=== PATIENT | female | born 1960 | race Caucasian/White ===

== ENCOUNTER 2021-04-26 12:48 | Emergency (ER) | payer MEDICARE, MEDICAID, SELFPAY ==
[2021-04-26] VITALS (12 sets, daily range): BP systolic 118–126; BP diastolic 86–97; PULSE 87–102; RESP 17–25; TEMP 37.4; O2SAT 93–95
--- NOTE | ~2021-04-26 | XR_ITS ---
EXAMINATION: XR chest 1V portable EXAM DATE: 04/26/2021 13:59 INDICATION: Productive cough. Altered mental status. TECHNIQUE: Portable AP frontal chest x-ray was obtained. Comparison is made to prior examination from 02/01/2015. FINDINGS: Mildly prominent basilar reticulation, could be mild pulmonary edema or interstitial lung d isease. No confluent consolidation, pneumothorax or pleural effusion suspected. The cardiomediastinal silhouette is prominent but magnified on this AP technique. Mild thoracal lumbar scoliosis. IMPRESSION: Some prominent basilar reticulation, could indicate mild edema or interstitial lung disea se. Reviewed, dictated and finalized at location A. IMPRESSION: Some prominent basilar reticulation, could indicate mild edema or i nterstitial lung disease.
[2021-04-26 13:07] LABS: Glucose Point of Care 342 mg/dl (65-105)
--- NOTE | 2021-04-26 13:19 | ECG_ITS ---
Measurements Intervals [place] Rate: 82 P: 65 [place]: 145 QRS: -55 QRSD: 101 T: 78 QT: 425 QTc: 497 Interpretive Statements SINUS RHYTHM FREQUENT ATRIAL PREMATURE COMPLEXES LEFT AXIS DEVIATION INFERIOR INFARCT, AGE INDETERMINATE BORDERLINE ST-T WAVE ABNORMALITY- HIGH LATERAL LEADS BASELINE ARTIFACT- I, II, III, AVR, AVF, V1, V3-V6 ABNORMAL ECG Electronically Signed On 04-26-2021 15:05:57 CDT by Arsenio Escalona D.O.
--- NOTE | 2021-04-26 13:32 | ED.AMS ---
HPI - Altered Mental Status General Chief Complaint: Altered Mental Status Stated Complaint: sleeping all the time, not eating Time Seen by Provider: 04/26/21 12:56 Source: family and EMS Limitations: physical limitation and other (s/p stroke, aphasia) History of Present Illness HPI narrative: 61-year-old female brought in by family via EMS for increased sleepiness for the last 4 days. Family states she has had increased cough, and increased sleepiness and decreased appetite. On arrival patient does have a rough cough with fever 99.4. Patient is sleepy but arousable. Following instructions. Patient with history of aphasia. Family states no vomiting, no diarrhea, no rashes, no new medications. Patient states patient has history of diabetes, high blood pressure, and stroke with aphasia and R sided weakness, usually ambulates without assistance, still a smoker with chronic cough. Related Data Home Medications Medication Instructions Recorded Confirmed amlodipine 04/26/21 sitagliptin [Januvia] mg 04/26/21 04/26/21 Allergies Allergy/AdvReac Type Severity Reaction Status Date / Time insulin glargine Allergy Severe Swelling Verified 02/01/15 07:23 amoxicillin Allergy Unknown Unverified 02/01/15 07:23 cephalexin Allergy Unknown Unverified 02/01/15 07:23 doxycycline Allergy Unknown Itching Verified 02/01/15 07:23 latex Allergy Unknown Unverified 02/01/15 07:23 Penicillins Allergy Unknown Unverified 02/01/15 07:23 sulfamethoxazole Allergy Unknown Swelling Verified 02/01/15 07:23 sumatriptan Allergy Unknown Unverified 02/01/15 07:23 trazodone Allergy Unknown Swelling Verified 02/01/15 07:23 trimethoprim Allergy Unknown Swelling Verified 02/01/15 07:23 Review of Systems Review of Systems: ROS unobtainable: Yes unobtainable due to medical condition and other (Aphasia status post stroke) Exam Narrative: General: sleepy but arousable, following commands, respirations unlabored Head: normocephalic, atraumatic Eyes: EOMI bilaterally, anicteric, no injection ENT: moist mucous membranes, oropharynx patent, no rhinorrhea; poor dentition, multiple dental caries, no periapical abscess Neck: supple, trachea midline, no JVD Chest: equal chest rise bilaterally, no chest wall trauma noted Lungs: B rhonchi respirations unlabored CV: regular rate, no AARTI B, calf size equal bilaterally Abd: soft, non-distended, non-tender, no rebound, no gaurding, negative Robison's EXT: no deformity noted, cap refill less 2sec Skin: warm, dry, no pallor Neuro: alert, oriented x 3; CN 2-12 grossly intact, no dysarthria Psych: affect appropriate, though content normal Course Course Emergency Course: Lab results show hyperglycemia, negative troponin no elevated WBCs, patient awake alert no apparent distress afebrile after IV fluids. Will recheck blood sugar. Reevaluation(s) Date: 04/26/21 Time: 16:25 Reevaluation #2: Alert oriented answering all questions. Complaining of dental pain. Vital Signs Vital signs: Vital Signs Temperature 37.4 C 04/26/21 13:03 Pulse Rate 97 04/26/21 13:03 Respiratory Rate 23 H 04/26/21 13:03 Blood Pressure 126/97 H 04/26/21 13:03 Pulse Oximetry 94 04/26/21 13:03 Temperature 37.4 C 04/26/21 13:03 Pulse Rate 97 04/26/21 13:03 Respiratory Rate 20 04/26/21 13:18 Blood Pressure 126/97 H 04/26/21 13:03 Pulse Oximetry 94 04/26/21 13:03 MDM - Altered Mental Status MDM Narrative Medical decision making narrative: 61-year-old female with multiple medical problems stable chronic smoker with chronic cough brought in by family for increased sleepiness over the last 4 days. Patient arrives with a fever of 99.4 arrest worsening cough per family, respirations unlabored and a sugar of 324. Patient is sleepy but arousable following commands. She does have aphasia status post CVA 4 years ago. Ambulates without assistance at home. Differential Diagnosis Differential diagnosis: Likely other (Hypergly
[2021-04-26 13:48] LABS: Basophils Percent Auto 0.4 % (0.2-1.2); Eosinophils Percent Auto 0.4 % (0-4.4); Hematocrit 43.7 % (37.0-47.0); Hemoglobin 15.1 g/dL (12.0-15.0); Immature Granulocyte Absolute 0.02 K/mm3 (0.00-0.031); Immature Granulocyte Percent A 0.4 % (0-0.5); Lymphocytes Absolute Auto 1.89 K/mm3 (0.9-3.2); Lymphocytes Percent Auto 40.7 % (18.3-44.2); Mean Corpuscular HGB Conc 34.6 g/dl (32-36); Mean Corpuscular Hemoglobin 30.2 pg (26-34); Mean Corpuscular Volume 87.4 fl (80-100); Mean Platelet Volume 10.4 fl (7.4-10.4); Monocytes Absolute Auto 0.4 K/mm3 (0.1-0.6); Monocytes Percent Auto 7.8 % (2.6-8.5); Neutrophils Absolute Auto 2.3 K/mm3 (1.3-6.7); Neutrophils Percent Auto 50.3 % (45.5-73.1); Platelet Count Result 182 k/mm3 (150-375); Red Cell Distribution Width 12.4 % (11.5-14.5); White Blood Count 4.6 K/mm3 (4.5-10.0)
[2021-04-26 13:58] LABS: Prothrombin Time 13.2 Seconds (11.1-14.7)
[2021-04-26 13:59] LABS: Alanine Aminotransferase 14 U/L (4-35); Albumin Level 3.4 g/dL (3.5-5.1); Alkaline Phosphatase 91 U/L (38-126); Anion Gap 7 mmol/L (8-16); Aspartate Amino Transferase 23 U/L (14-36); Bilirubin,Total 0.8 mg/dL (0.2-1.3); Blood Urea Nitrogen 11 mg/dL (7-17); Calcium 8.7 mg/dL (8.4-10.2); Carbon Dioxide 28 mmol/L (22-30); Chloride 101 mmol/L (98-107); Estimated Glomerular Filt Rate > 60; Glucose 311 mg/dL (65-110); Partial Thromboplastin Time 24.8 SECONDS (22.3-36.8); Potassium 3.7 mmol/L (3.4-5.0); Sodium 136 mmol/L (137-145)
[2021-04-26 14:14] LABS: Troponin I 0.013 ng/mL (0.000-0.034)
[2021-04-26] MEDS: SODIUM CHLORIDE 0.9% IV 1,000 ML 999 ML IV CONT (14:50)
[2021-04-26 15:59] LABS: Add Urine Microscopic? YES; Appearance Urine Cloudy (Clear); Bacteria Urine 4+ /hpf; Bilirubin Urine Negative (Negative); Blood Urine Negative (Negative); Color Urine Amber (Yellow); Glucose Urine UA 3+ mg/dL (Negative); Ketones Urine Negative (Negative); Leukocyte Esterase Ur Negative LEU/UL (Negative); Mucus Urine Rare /lpf; Nitrate Urine Negative (Negative); Protein Urine 2+ mg/dL (Negative); Specific Grav Ur 1.023 (1.001-1.035); Squamous Epithelial Cell Urine Occasional /hpf (Few); WBC Urine 0-3 /hpf
[2021-04-26] MEDS: CLINDAMYCIN HCL 150 MG CAP 600 MG PO (17:18)
[2021-04-26 17:28] LABS: Glucose Point of Care 216 mg/dl (65-105)
[2021-04-27 16:20] LABS: SARS-CoV-2 RNA PCR Positive
== END 2021-04-26 17:47 | disposition home or self-care (01) ==
PROVIDERS: Emergency Provider Emergency Medicine
DX: U07.1 COVID-19 (principal); R05.9 Cough, unspecified; K04.7 Periapical abscess without sinus; E11.65 Type 2 diabetes mellitus with hyperglycemia; I10 Essential (primary) hypertension; I69.920 Aphasia following unspecified cerebrovascular disease; I69.951 Hemiplegia and hemiparesis following unspecified cerebrovascular disease affecting right dominant side; Z79.84 Long term (current) use of oral hypoglycemic drugs; I49.1 Atrial premature depolarization; R94.31 Abnormal electrocardiogram [ECG] [EKG]; F17.200 Nicotine dependence, unspecified, uncomplicated
CPT/HCPCS: 36415; 71045; 80053; 81001; 82948; 84145; 84484; 85025; 85610; 85730; 93005; 96360; 99284; A9270; C9803; J7030; U0003; U0005

== ENCOUNTER 2021-11-15 16:43 | Emergency (ER) | payer BC, SELFPAY ==
--- NOTE | ~2021-11-15 | XR_ITS ---
EXAM: XR foot RT min 3V DATE: 11/15/2021 17:15 HISTORY: right 2nd toe pain, edema . COMPARISON: None available. FINDINGS: Decreased mineralization. No fracture or dislocation. No lytic or blastic lesion. Scattere d degenerative change. No erosion or periosteal change. Soft tissue swelling over the right second di git and forefoot. IMPRESSION: No acute osseous finding in the right foot. Reviewed, dictated and finalized at location K.
[2021-11-15 16:44] VITALS: BP 196/113; PULSE 114; RESP 18; TEMP 36.3; O2SAT 98
--- NOTE | 2021-11-15 17:04 | ED.LOWEXIN ---
HPI - Extremity Injury (Lower) General Chief Complaint: Extremity Injury, Lower Stated Complaint: right 2nd toe injury Time Seen by Provider: 11/15/21 16:51 Source: patient Mode of arrival: wheelchair Limitations: no limitations History of Present Illness HPI Narrative: This is a 61 year old female that presents to the ER for right 2nd toe pain ongoing for about one month. Unsure of known injury or trauma. Reports pain and swelling to the area. Denies fever, or erythema. Related Data Home Medications Medication Instructions Recorded Confirmed amlodipine 04/26/21 sitagliptin [Januvia] mg 04/26/21 04/26/21 clopidogrel 11/15/21 linagliptin [Tradjenta] mg 11/15/21 losartan 11/15/21 omeprazole 11/15/21 Allergies Allergy/AdvReac Type Severity Reaction Status Date / Time insulin glargine Allergy Severe Swelling Verified 11/15/21 17:06 amoxicillin Allergy Unknown Unknown Verified 11/15/21 17:06 cephalexin Allergy Unknown Unknown Verified 11/15/21 17:06 doxycycline Allergy Unknown Itching Verified 11/15/21 17:06 latex Allergy Unknown Unknown Verified 11/15/21 17:06 Penicillins Allergy Unknown Unknown Verified 11/15/21 17:06 sulfamethoxazole Allergy Unknown Swelling Verified 11/15/21 17:06 sumatriptan Allergy Unknown Unknown Verified 11/15/21 17:06 trazodone Allergy Unknown Swelling Verified 11/15/21 17:06 trimethoprim Allergy Unknown Swelling Verified 11/15/21 17:06 Review of Systems Review of Systems: CONSTITUTIONAL: Denies fever MUSCULOSKELETAL: Reports joint pain, and myalgia. NEUROLOGIC: Reports numbness, and weakness due to previous stroke All systems reviewed & are unremarkable except as noted in HPI and below PMFSH Past Medical History Medical History (Updated 11/15/21 @ 17:52 by Ina Belcher PA-C) History of CVA (cerebrovascular accident) History of diabetes mellitus Social History Social History (Updated 11/15/21 @ 17:10 by Ina Belcher PA-C) Smoking status: Current every day smoker Exam Narrative: GENERAL: Well-appearing, well-nourished, and in no acute distress. HEAD: Normocephalic, atraumatic. EYES: EOMI. CHEST: No respiratory distress. HEART: Regular rate and rhythm. No murmur heard. Normal peripheral pulses. EXTREMITIES: Normal range of motion. Right 2nd toe with developing blister to the distal phalanx. Mild surrounding edema and redness of the toe, no erythema or warmth. 1+ DP pulses SKIN: Warm, dry, no rash. NEURO: No focal deficits. Alert and oriented x3. PSYCH: Normal mood and affect Course Vital Signs Vital signs: Vital Signs Temperature 97.4 F L 11/15/21 16:44 Pulse Rate 114 H 11/15/21 16:44 Respiratory Rate 18 11/15/21 16:44 Blood Pressure 196/113 H 11/15/21 16:44 Pulse Oximetry 98 11/15/21 16:44 Temperature 97.4 F L 11/15/21 16:44 Pulse Rate 114 H 11/15/21 16:44 Respiratory Rate 18 11/15/21 16:44 Blood Pressure 196/113 H 11/15/21 16:44 Pulse Oximetry 98 11/15/21 16:44 MDM - Extremity Injury (Lower) MDM Narrative Medical decision making narrative: Patient presents to the emergency department for a wound to the right second toe. Present over the last month. Patient is afebrile and nontoxic-appearing. DP pulses are somewhat diminished, but easily obtained by Doppler. There is some redness and swelling surrounding a blister lesion to the end of the second toe. Foot x-ray is without acute osseous abnormalities. Patient with history of diabetes mellitus and likely vascular problems contributing to the wound on her toe. She refused any further evaluation or management of this. Given risks of doing so. She signed out AGAINST MEDICAL ADVICE. She will be placed on oral antibiotics and was instructed on the importance of having close follow-up with her primary doctor or returning at any time for further evaluation and management Imaging Data Radiologist's impression: ITS Impressions Foot X-Ray 11/15/21 17:18 IMPRESSION: No acute
--- NOTE | 2021-11-15 17:47 | PC.NURSE ---
PT CONSENTING TO ONE ATTEMPT FOR LABS AND IV ACCESS. THIS RN OBTAINED A FLASH BUT WAS UNABLE TO ADVANCE THE CATHETER OR OBTAIN LABS. PT REFUSING ADDITIONAL STICKS AT THIS TIME. ANNABELLA TRENT AWARE AND WILL GO SPEAK WITH THE PT
== END 2021-11-15 18:00 | disposition left against medical advice (07) ==
PROVIDERS: Emergency Provider Emergency Medicine
DX: E11.621 Type 2 diabetes mellitus with foot ulcer (principal); Z86.73 Personal history of transient ischemic attack (TIA), and cerebral infarction without residual deficits
CPT/HCPCS: 73630; 99283

== ENCOUNTER 2022-09-10 07:37 | Outpatient (CLI) | payer BC, SELFPAY ==
--- NOTE | ~2022-09-10 | US_ITS ---
EXAMINATION: US retroperitoneal duplex ltd DATE: 09/10/2022 09:47 INDICATION: hypertension TECHNIQUE: Multiple grayscale, color Doppler, and pulsed Doppler images of the kidneys and renal mackenzie ton were obtained. COMPARISON: None. FINDINGS: The aorta peak systolic velocity is 77 cm/s. The right renal artery peak systolic velocity is 86 cm/s in the proximal segment, 86 cm/s in the mid segment, and 111 cm/s in the distal segment. The left re nal artery peak systolic velocity is 108 cm/s in the proximal segment, 123 cm/s in the mid segment, a nd 67 cm/s in the distal segment. IMPRESSION: 1. No Doppler evidence of renal artery stenosis. Reviewed, dictated and finalized at location B.
--- NOTE | ~2022-09-10 | US_ITS ---
EXAMINATION: US arterial duplex LE DATE: 09/10/2022 09:47 INDICATION: Hypertension. 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 TECHNIQUE: Multiple grayscale and Doppler ultrasound images of the arteries at the bilateral lower li mbs were obtained. COMPARISON: None FINDINGS: Biphasic waveform with brisk systolic upstroke at the right common femoral artery. There is occlusion of the right [place] superficial femoral artery with triphasic waveforms in the right femoral to popl iteal artery bypass graft in the more distal right popliteal artery. Biphasic waveforms at the right posterior tibial, peroneal and dorsalis pedis arteries. With the exception of the occluded [place] rig ht superficial femoral artery, there are brisk systolic upstrokes throughout the arteries in the bypa ss graft throughout the right lower limb and no focally elevated velocities to suggest a significant stenosis. Biphasic waveforms with brisk systolic upstrokes at the left common femoral, superficial femoral, pro miranda femoral, popliteal, posterior tibial, peroneal and dorsalis pedis arteries. No focally elevated velocities to suggest a significant stenosis. IMPRESSION: 1. 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 No findings to suggest other hemodynamically significant stenosis in the arteries of eithe r lower limb. Reviewed, dictated and finalized at location B. IMPRESSION: 1. 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 No findings to suggest other hemodynamically s ignificant stenosis in the arteries of either lower limb.
== END 2022-09-10 07:38 | disposition home or self-care (01) ==
DX: I10 Essential (primary) hypertension (principal); I70.261 Atherosclerosis of native arteries of extremities with gangrene, right leg; R29.898 Other symptoms and signs involving the musculoskeletal system; I77.1 Stricture of artery
CPT/HCPCS: 93925; 93976

== ENCOUNTER 2022-11-04 16:55 | Emergency (ER) | payer BC, SELFPAY ==
--- NOTE | ~2022-11-04 | CT_ITS ---
EXAMINATION: CT brain wo con DATE: 11/04/2022 19:41 INDICATION: Confusion. TECHNIQUE: Computed tomography (CT) of the head was performed without intravenous contrast. The mA wa s adjusted according to patient size. Iterative reconstruction technique was employed. The dose-lengt h product was 605.33 mGy-cm. COMPARISON: Head CT 03/20/2016 FINDINGS: There is an old infarct involving left frontal and parietal lobes and left insula. There ar e scattered areas of low attenuation in the cerebral white matter. There is no intracranial hemorrhag e, acute infarction, or abnormal intracranial mass lesion. There is mild ex vacuo dilatation of left lateral ventricle. The paranasal sinuses are clear. The orbits are normal. There is a trace right mas toid effusion. IMPRESSION: 1. Old infarct involving the left frontal and parietal lobes and left insula. 2. Extensive nonspecific cerebral white matter disease, which likely represents chronic small vessel ischemic disease. Reviewed, dictated and finalized at location E.
--- NOTE | ~2022-11-04 | CT_ITS ---
EXAMINATION: CT abdomen pelvis w con DATE: 11/04/2022 20:27 INDICATION: Abdominal pain. TECHNIQUE: Computed tomography (CT) of the abdomen and pelvis was performed with 100 mL Omnipaque 350 intravenous contrast. Automated exposure control and iterative reconstruction technique were employe d. The dose-length product was 571.68 mGy-cm. COMPARISON: None. FINDINGS: The visualized portions of the lung bases demonstrate mild atelectasis. No pleural effusion . Cardiomegaly is noted. No pericardial effusion. The liver is normal. There are changes of cholecyst ectomy. The spleen, pancreas, and adrenal glands are normal. There is cortical thinning of the kidney s. There are 13 mm and 4 mm stones in left kidney. There are no dilated loops of bowel. The appendix is normal. There is calcified atherosclerosis of the aorta and many of the other arteries. There are no pathologically enlarged lymph nodes. There is no free intraperitoneal fluid. There is an electrode in right S3 neural foramen. There is mild thoracic and lumbar spondylosis. IMPRESSION: 1. Nonobstructing left kidney stones. Reviewed, dictated and finalized at location E.
--- NOTE | ~2022-11-04 | XR_ITS ---
EXAMINATION: XR chest 2V DATE: 11/04/2022 18:46 INDICATION: Hypertension. Left lower quadrant abdominal pain. TECHNIQUE: Frontal and lateral views of the chest were obtained. COMPARISON: Chest single view 04/26/2021 FINDINGS: There is no pneumonia, pleural effusion, or pneumothorax. The heart size is normal. IMPRESSION: 1. No acute cardiopulmonary disease. Reviewed, dictated and finalized at location E.
[2022-11-04 17:02] VITALS: BP 198/109; PULSE 97; RESP 18; TEMP 36.7; O2SAT 100
--- NOTE | 2022-11-04 17:48 | ED.ABDPAIN ---
HPI - Abdominal Pain General Chief Complaint: Abdominal Pain Stated Complaint: abd pain Time Seen by Provider: 11/04/22 17:48 Source: patient Mode of arrival: ambulatory Limitations: other (developmental delay) History of Present Illness HPI narrative: Patient is a 62-year-old female with a history of hypertension, type 2 diabetes, COPD, CVA presenting to the emergency department for evaluation of abdominal pain. Patient reports aching sensation in her abdomen. Reports nausea without vomiting. She denies fever or chills. Patient also reports bilateral leg swelling. She reports mild cough and shortness of breath. No hemoptysis. She denies anterior chest pain. When asked if patient takes blood pressure medication she states that she is not sure. She reports mild abdominal distension. She is difficult to communicate with secondary to CVA. Does not have many visits to this facility in the past. I did speak directly with the patient did review past medical records at this facility as well as a visit in 2014. Related Data Home Medications Medication Instructions Recorded Confirmed amlodipine 10 mg tablet 04/26/21 sitagliptin phosphate 25 mg tablet mg 04/26/21 04/26/21 (Januvia) clopidogrel 75 mg tablet 11/15/21 linagliptin 5 mg tablet (Tradjenta) mg 11/15/21 losartan 100 mg tablet 11/15/21 omeprazole 40 mg capsule,delayed 11/15/21 release Allergies Allergy/AdvReac Type Severity Reaction Status Date / Time insulin glargine Allergy Severe Swelling Verified 11/04/22 16:57 amoxicillin Allergy Unknown Unknown Verified 11/04/22 16:57 cephalexin Allergy Unknown Unknown Verified 11/04/22 16:57 doxycycline Allergy Unknown Itching Verified 11/04/22 16:57 latex Allergy Unknown Unknown Verified 11/04/22 16:57 Penicillins Allergy Unknown Unknown Verified 11/04/22 16:57 sulfamethoxazole Allergy Unknown Swelling Verified 11/04/22 16:57 sumatriptan Allergy Unknown Unknown Verified 11/04/22 16:57 trazodone Allergy Unknown Swelling Verified 11/04/22 16:57 trimethoprim Allergy Unknown Swelling Verified 11/04/22 16:57 clindamycin Allergy Unknown Verified 11/04/22 16:57 Review of Systems Review of Systems: CONSTITUTIONAL: Denies fever, chills, or sweats. EYES: Denies visual changes, redness, or discharge. ENT: Denies rhinorrhea, congestion, sore throat, or otalgia. CARDIOVASCULAR: Denies chest pain, palpitations; reports leg edema RESPIRATORY: Reports cough and dyspnea GASTROINTESTINAL:Reports abdominal pain and nausea, denies vomiting, or diarrhea. GENITOURINARY: Denies dysuria or hematuria. SKIN: Denies rash or itching. MUSCULOSKELETAL: Denies back pain, joint pain, or myalgia. NEUROLOGIC: Denies headache, numbness, or weakness. [facility] Past Medical History Medical History History of CVA (cerebrovascular accident) History of diabetes mellitus Social History Social History Smoking status: Current every day smoker Exam Narrative: GENERAL: Awake, alert, conversant, chronically ill-appearing HEAD: Normocephalic, atraumatic. EYES: PERRLA and EOMI. ENT: Nares clear, no rhinorrhea or epistaxis. Mucous membranes moist. NECK: Supple. CHEST: No respiratory distress, breathing even and non labored HEART: Regular rate, sinus rhythm ABDOMEN:N mild distention, mildly tender throughout, no rebound, rigidity or guarding EXTREMITIES: Normal range of motion. SKIN: Warm, dry, no rash. NEURO:No focal deficits. Alert and oriented x3 Course Vital Signs Vital signs: Vital Signs Temperature 36.7 C 11/04/22 17:02 Pulse Rate 97 11/04/22 17:02 Respiratory Rate 18 11/04/22 17:02 Blood Pressure 198/109 H 11/04/22 17:02 Pulse Oximetry 100 11/04/22 17:02 Oxygen Delivery Room Air 11/04/22 17:02 Temperature 36.7 C 11/04/22 17:02 Pulse Rate 100 11/04/22 19:46 Respiratory Rate 24 H
--- NOTE | 2022-11-04 17:49 | ECG_ITS ---
Measurements Intervals [place] Rate: 111 P: 70 [place]: 141 QRS: -28 QRSD: 91 T: 85 QT: 348 QTc: 474 Interpretive Statements SINUS TACHYCARDIA POSSIBLE LEFT ATRIAL ENLARGEMENT DELAYED PRECORDIAL R/S TRANSITION LEFT VENTRICULAR HYPERTROPHY AND ST-T CHANGE INFERIOR INFARCT, AGE INDETERMINATE ABNORMAL ECG COMPARED TO ECG 04/26/2021 15:00:54 SINUS TACHYCARDIA NOW PRESENT LEFT VENTRICULAR HYPERTROPHY NOW PRESENT Electronically Signed On 11-04-2022 21:11:16 CDT by Arsenio Escalona D.O.
[2022-11-04 17:54] LABS: Glucose Point of Care 425 mg/dl (65-105)
[2022-11-04 18:37] LABS: Device ROOM AIR; Fractional Inspired Oxygen 21 %; HCO3 VBG 27.5 mEq/l (24.0-30.0); PCO2 VBG 47.3 mmHg (42.0-48.0); PO2 VBG 30.3 mmHg (35.0-45.0); pH VBG 7.383 (7.300-7.400)
[2022-11-04 18:40] LABS: Basophils Absolute Auto 0.1 K/mm3 (0.0-0.1); Eosinophils Absolute Auto 0.2 K/mm3 (0-0.3); Eosinophils Percent Auto 2.1 % (0-4.4); Hemoglobin 15.1 g/dL (12.0-15.0); Immature Granulocyte Absolute 0.01 K/mm3 (0.00-0.031); Immature Granulocyte Percent A 0.1 % (0-0.5); Lymphocytes Absolute Auto 2.38 K/mm3 (0.9-3.2); Lymphocytes Percent Auto 32.7 % (18.3-44.2); Mean Corpuscular HGB Conc 34.3 g/dl (32-36); Mean Corpuscular Hemoglobin 28.5 pg (26-34); Mean Corpuscular Volume 83.2 fl (80-100); Mean Platelet Volume 10.6 fl (7.4-10.4); Monocytes Absolute Auto 0.4 K/mm3 (0.1-0.6); Monocytes Percent Auto 5.5 % (2.6-8.5); Neutrophils Absolute Auto 4.3 K/mm3 (1.3-6.7); Neutrophils Percent Auto 58.6 % (45.5-73.1); Platelet Count Result 235 k/mm3 (150-375); Red Blood Count 5.29 M/mm3 (4.2-5.4); Red Cell Distribution Width 13.2 % (11.5-14.5); White Blood Count 7.3 K/mm3 (4.5-10.0)
[2022-11-04 18:55] LABS: Alanine Aminotransferase 25 U/L (6-35); Albumin Level 4.4 g/dL (3.5-5.1); Alkaline Phosphatase 118 U/L (38-126); Anion Gap 12 mmol/L (8-16); Aspartate Amino Transferase 23 U/L (14-36); Bilirubin,Total 0.5 mg/dL (0.2-1.3); Blood Urea Nitrogen 21 mg/dL (7-17); Calcium 9.5 mg/dL (8.4-10.2); Carbon Dioxide 25 mmol/L (22-30); Chloride 101 mmol/L (98-107); Estimated CRCL calculation 50 ml/min; Estimated Glomerular Filt Rate > 60; Glucose 452 mg/dL (65-110); Lipase 60 U/L (23-300); Magnesium 1.9 mg/dL (1.6-2.3); Phosphorus 4.1 mg/dL (2.5-4.5); Potassium 4.2 mmol/L (3.4-5.0); Sodium 138 mmol/L (137-145)
[2022-11-04 19:00] LABS: Beta-Hydroxybutyrate/Acetoacetate 0.07 mmol/L (0.02-0.27)
[2022-11-04 19:06] LABS: NT Pro B Type Natriuretic Pept 7550 pg/mL (19.9-100)
[2022-11-04 19:12] LABS: Troponin I 0.048 ng/mL (0.000-0.034)
--- NOTE | 2022-11-04 19:21 | PC.NURSE ---
This RN assumed care of patient.
[2022-11-04 19:46] VITALS: BP 163/110; PULSE 100; RESP 24; O2SAT 98
--- NOTE | 2022-11-04 20:05 | ECG_ITS ---
Measurements Intervals [place] Rate: 95 P: 66 [place]: 157 QRS: -32 QRSD: 91 T: 86 QT: 373 QTc: 470 Interpretive Statements SINUS RHYTHM ATRIAL PREMATURE COMPLEX LEFT AXIS DEVIATION POSSIBLE LEFT ATRIAL ENLARGEMENT INFERIOR INFARCT, AGE INDETERMINATE BORDERLINE ST-T WAVE ABNORMALITY- HIGH LATERAL LEADS BASELINE ARTIFACT- II, AVR, V1 ABNORMAL ECG COMPARED TO ECG 11/04/2022 18:26:41 SINUS RHYTHM NOW PRESENT LEFT-AXIS DEVIATION NOW PRESENT Electronically Signed On 11-05-2022 14:04:18 CDT by Arsenio Escalona D.O.
[2022-11-04] MEDS: SODIUM CHLORIDE 0.9% IV 1,000 ML 999 ML IV CONT (21:00)
[2022-11-04 21:11] LABS: Prothrombin Time 13.9 Seconds (11.1-14.7)
[2022-11-04 21:12] LABS: Partial Thromboplastin Time 27.8 SECONDS (22.3-36.8)
[2022-11-04] MEDS: HEPARIN SODIUM 5,000 UNITS/ML VIAL 3500 UNITS IV PUSH (21:14)
[2022-11-04 21:22] LABS: Appearance Urine Clear (Clear); Bacteria Urine None Seen /hpf; Bilirubin Urine Negative (Negative); Blood Urine Negative (Negative); Color Urine Yellow (Yellow); Glucose Urine UA 3+ mg/dL (Negative); Ketones Urine Negative (Negative); Leukocyte Esterase Ur Negative LEU/UL (Negative); Nitrate Urine Negative (Negative); Non Pathogenic Casts 0-2; Protein Urine Trace mg/dL (Negative); RBC Urine 0-2 /hpf (0-2); Squamous Epithelial Cell Urine Occasional /hpf (Few); Urobilinogen Urine 0.2 mg/dL (<2.0); WBC Urine 0-5 /hpf; pH Urine 6.5 (5.0-9.0)
[2022-11-04 21:27] LABS: Add Urine Microscopic? YES; Specific Grav Ur 1.042 (1.001-1.035)
--- NOTE | 2022-11-04 22:37 | PM.IMHP ---
H&P: HPI History of Present Illness Date/Time: 11/04/22 22:37 Chief Complaint: 62 years old female with past medical history of hypertension CVA diabetes presented to the hospital with abdominal pain generalized done in nature associated with abdominal distension denies fever or chills denies dysuria patient complains of bilateral lower extremity swelling also she have shortness of breath at the ER patient was found to have elevated BNP chest x-ray was negative for acute finding CT scan of the abdomen shows positive kidney stone patient also has hyperglycemia blood sugar was above 400 also blood pressure was uncontrolled patient was found to have abdominal pain multifactorial most likely related to kidney stone and control diabetes and probable CHF exacerbation admitted to the hospital for further evaluation and treatment I spoke with the patient his sister patient blood sugar usually above 300 and her blood pressure usually uncontrolled patient does not have allergy to insert according to the sister patient tells that she have allergy to insulin because she is afraid that she will get addicted to insulin if was given to Review of Systems Review of Systems: Twelve system review negative except above PMFSH Past Medical History Medical History (Updated 11/04/22 @ 22:40 by Wang House MD) History of CVA (cerebrovascular accident) History of diabetes mellitus Social History Social History Smoking status: Current every day smoker Meds Home Medications and Allergies Home Medications Medication Instructions Recorded Confirmed Type amlodipine 10 mg tablet 04/26/21 History clindamycin HCl 300 mg capsule 300 mg PO Q6H 7 days #28 caps 04/26/21 Rx ibuprofen 800 mg tablet 800 mg PO TID PRN pain #30 tabs 04/26/21 Rx sitagliptin phosphate 25 mg tablet mg 04/26/21 04/26/21 History (Januvia) ciprofloxacin HCl 500 mg tablet 500 mg PO Q12H 1 week #14 tabs 11/15/21 Rx clopidogrel 75 mg tablet 11/15/21 History linagliptin 5 mg tablet (Tradjenta) mg 11/15/21 History losartan 100 mg tablet 11/15/21 History omeprazole 40 mg capsule,delayed 11/15/21 History release Allergies Allergy/AdvReac Type Severity Reaction Status Date / Time insulin glargine Allergy Severe Swelling Verified 11/04/22 16:57 amoxicillin Allergy Unknown Unknown Verified 11/04/22 16:57 cephalexin Allergy Unknown Unknown Verified 11/04/22 16:57 doxycycline Allergy Unknown Itching Verified 11/04/22 16:57 latex Allergy Unknown Unknown Verified 11/04/22 16:57 Penicillins Allergy Unknown Unknown Verified 11/04/22 16:57 sulfamethoxazole Allergy Unknown Swelling Verified 11/04/22 16:57 sumatriptan Allergy Unknown Unknown Verified 11/04/22 16:57 trazodone Allergy Unknown Swelling Verified 11/04/22 16:57 trimethoprim Allergy Unknown Swelling Verified 11/04/22 16:57 clindamycin Allergy Unknown Verified 11/04/22 16:57 Vital Signs Vital Signs - 24 hr 11/04/22 17:02 11/04/22 19:46 Temperature 98.1 F Pulse Rate 97 100 Respiratory Rate 18 24 H Blood Pressure 198/109 H 163/110 H Pulse Oximetry 100 98 Oxygen Delivery Room Air Exam Narrative: GENERAL: Lying in bed HEAD: Normocephalic, atraumatic. NECK: Supple. No adenopathy, no masses. RESPIRATORY: Bilateral crackles. CARDIOVASCULAR: Regular rate and rhythm without murmurs, rubs, or gallops. Peripheral pulses 2+ and equal bilaterally. ABDOMINAL: Positive tenderness negative rebound negative guarding. MUSCULOSKELETAL: Bilateral lower extremity edema SKIN: Warm, dry, normal color. No rashes. NEURO: Follow commands existing deficit PSYCHIATRIC: Appropriate mood and affect. Normal interaction. H&P: Results Labs Labs: Short CBC 11/04/22 Range/Units 18:33 WBC 7.3 (4.5-10.0) K/mm3 Hgb 15.1 H (12.0-15.0) g/dL Hct 44.0 (37.0-47.0) % Plt Count 235 (150-375) k/mm3 [facility] 11/04/22 18:34 Sodium 1
[2022-11-04 22:42] LABS: Glucose Point of Care 311 mg/dl (65-105)
[2022-11-04 22:48] LABS: Troponin I 0.043 ng/mL (0.000-0.034)
== END 2022-11-04 23:38 | disposition left against medical advice (07) ==
PROVIDERS: Emergency Medicine; Emergency Provider Emergency Medicine
DX: E11.65 Type 2 diabetes mellitus with hyperglycemia (principal); R77.8 Other specified abnormalities of plasma proteins; R79.89 Other specified abnormal findings of blood chemistry; R10.9 Unspecified abdominal pain; R06.02 Shortness of breath; Z86.73 Personal history of transient ischemic attack (TIA), and cerebral infarction without residual deficits; Z86.39 Personal history of other endocrine, nutritional and metabolic disease
CPT/HCPCS: 36415; 70450; 71046; 74177; 80053; 81001; 82010; 82803; 82948; 83690; 83735; 83880; 84100; 84484; 85025; 85610; 85730; 93005; 96361; 96374; 99284; J1630; J1644; J7030; Q9967

== ENCOUNTER 2022-11-08 17:52 | Observation (INO) | payer BC, SELFPAY ==
--- NOTE | ~2022-11-08 | CT_ITS ---
CT of the Abdomen and Pelvis: Indication: Abdominal pain Technique: 2.5 mm axial scans were obtained through the abdomen and pelvis following intravenous adm inistration of 100 cc of Omnipaque 350. Dose reduction technique was used on this scan by utilizing a utomated exposure control and iterative reconstruction technique. The dose-length product (DLP) was 8 30.47 mGy-cm. COMPARISON: 11/04/2022 Findings: Scans through the lung bases are unremarkable. The liver, spleen, pancreas, adrenals and right kidney are within normal limits. Cholecystectomy clip s are noted. Left lower pole nonobstructing renal stone measures up to 1.1 cm in diameter. There are atherosclerotic calcifications of the aorta. No lymphadenopathy. No bowel obstruction or bowel wall thickening. There is no evidence to suggest acute appendicitis. Images through the pelvis were performed. Urinary bladder unremarkable. No pelvic mass seen. No ascit es. Butterfly S1 segment noted. Impression: Nonobstructing left nephrolithiasis. Reviewed, dictated and finalized at location . Impression: Nonobstructing left nephrolithiasis.
--- NOTE | ~2022-11-08 | XR_ITS ---
EXAMINATION: XR chest 2V DATE: 11/08/2022 18:44 INDICATION: Chest pain, altered mental status and stroke TECHNIQUE: PA and lateral views of the chest were obtained. COMPARISON: Chest radiograph dated 11/04/2022 FINDINGS: Lungs remain clear with no airspace opacities, pulmonary edema, pleural effusion or pneumothorax. The cardiomediastinal silhouette is normal. Mild S-shaped curvature of the thoracic spine with mild to m oderate spondylosis. Cholecystectomy clips in right upper quadrant. IMPRESSION: 1. No acute cardiopulmonary disease. Reviewed, dictated and finalized at location A.
[2022-11-08 18:02] VITALS: BP 199/120; PULSE 109; RESP 20; TEMP 36.6; O2SAT 99
[2022-11-08 18:05] LABS: Glucose Point of Care 264 mg/dl (65-105)
--- NOTE | 2022-11-08 18:06 | ECG_ITS ---
Measurements Intervals [place] Rate: 108 P: 71 ID: [id number] QRS: -26 QRSD: 96 T: 95 QT: 350 QTc: 471 Interpretive Statements SINUS TACHYCARDIA DELAYED PRECORDIAL R/S TRANSITION LEFT VENTRICULAR HYPERTROPHY AND ST-T CHANGE CONSIDER INFERIOR INFARCT, AGE INDETERMINATE BASELINE ARTIFACT- I, II, AVR ABNORMAL ECG COMPARED TO ECG 11/04/2022 20:05:20 SINUS TACHYCARDIA NOW PRESENT LEFT VENTRICULAR HYPERTROPHY NOW PRESENT Electronically Signed On 11-08-2022 20:28:41 CDT by Arsenio Escalona D.O.
--- NOTE | 2022-11-08 19:51 | PC.NURSE ---
patient in waiting room, pushed self out in wheelchair to have a cigarette at this time
[2022-11-08 21:02] LABS: Basophils Absolute Auto 0.1 K/mm3 (0.0-0.1); Basophils Percent Auto 0.8 % (0.2-1.2); Eosinophils Absolute Auto 0.2 K/mm3 (0-0.3); Eosinophils Percent Auto 2.2 % (0-4.4); Hematocrit 43.5 % (37.0-47.0); Hemoglobin 14.9 g/dL (12.0-15.0); Immature Granulocyte Absolute 0.02 K/mm3 (0.00-0.031); Immature Granulocyte Percent A 0.2 % (0-0.5); Lymphocytes Absolute Auto 3.39 K/mm3 (0.9-3.2); Lymphocytes Percent Auto 34.7 % (18.3-44.2); Mean Corpuscular HGB Conc 34.3 g/dl (32-36); Mean Corpuscular Hemoglobin 28.5 pg (26-34); Mean Corpuscular Volume 83.3 fl (80-100); Mean Platelet Volume 10.6 fl (7.4-10.4); Monocytes Absolute Auto 0.5 K/mm3 (0.1-0.6); Monocytes Percent Auto 5.5 % (2.6-8.5); Neutrophils Absolute Auto 5.5 K/mm3 (1.3-6.7); Neutrophils Percent Auto 56.6 % (45.5-73.1); Platelet Count Result 237 k/mm3 (150-375); Red Blood Count 5.22 M/mm3 (4.2-5.4); Red Cell Distribution Width 13.2 % (11.5-14.5); White Blood Count 9.8 K/mm3 (4.5-10.0)
[2022-11-08 21:15] LABS: Alanine Aminotransferase 22 U/L (6-35); Albumin Level 4.3 g/dL (3.5-5.1); Alkaline Phosphatase 111 U/L (38-126); Anion Gap 12 mmol/L (8-16); Aspartate Amino Transferase 26 U/L (14-36); Bilirubin,Total 0.5 mg/dL (0.2-1.3); Blood Urea Nitrogen 24 mg/dL (7-17); Carbon Dioxide 24 mmol/L (22-30); Chloride 104 mmol/L (98-107); Estimated CRCL calculation 50 ml/min; Estimated Glomerular Filt Rate > 60; Glucose 309 mg/dL (65-110); Potassium 3.8 mmol/L (3.4-5.0); Sodium 140 mmol/L (137-145)
[2022-11-08 21:23] VITALS: BP 183/107; PULSE 100; RESP 20; TEMP 36.6; O2SAT 96
--- NOTE | 2022-11-08 22:25 | PC.NURSE ---
patient outside smoking a cigarette at this time
[2022-11-09] VITALS (14 sets, daily range): BP systolic 102–169; BP diastolic 57–98; PULSE 67–104; RESP 16–22; TEMP 35.9–36.6; O2SAT 96–100; BMI 27.8
[2022-11-09 00:30] LABS: NT Pro B Type Natriuretic Pept 3530 pg/mL (19.9-100); Troponin I 0.043 ng/mL (0.000-0.034)
--- NOTE | 2022-11-09 01:45 | ED.RECABL ---
HPI - Recheck/Abnormal Lab/Rx General Chief Complaint: Recheck/Abnormal Lab/Rx <LENNOX Mclean Last Filed: 11/09/22 04:08> Stated Complaint: HTN/ HYPERGLYCEMIA <LENNOX Mclean Last Filed: 11/09/22 04:08> Time Seen by Provider: 11/08/22 23:47 <LENNOX Mclean Last Filed: 11/09/22 04:08> Source: patient and old records reviewed <LENNOX Mclean Filed: 11/09/22 04:08> Mode of arrival: ambulatory <LENNOX Mclean Filed: 11/09/22 04:08> Limitations: clinical condition <LENNOX Mclean Last Filed: 11/09/22 04:08> History of Present Illness HPI narrative: Patient is a 62 y/o female who presents to the ED with c/o CP and abdominal pain. Patient has previous history of CVA and is somewhat a poor historian. Per records, patient was admitted to the hospital here on 11/04 for hypertensive urgency, elevated BNP, elevated troponin. Patient signed out AGAINST MEDICAL ADVICE the same day, reportedly was aggressive with staff and pulled out her IV. Patient states she does not remember being admitting or leaving here. She followed up with her primary care doctor, Dr. Paris, apparently today and was referred back to the ED for further evaluation. Patient reports having persistent intermittent left-sided chest pain, radiating into her shoulder and back. She also complains of pain to her left-sided abdomen, nausea, swelling in her legs, shortness of breath. Denies vomiting, fevers, cough. Patient has not been taking her medications. It does not appear that she is on any diuretic therapy. <LENNOX Mclean Last Filed: 11/09/22 04:08> Related Data Home Medications: Home Medications Medication Instructions Recorded Confirmed amlodipine 10 mg tablet 10 mg DAILY 04/26/21 11/09/22 clopidogrel 75 mg tablet 75 mg DAILY 11/15/21 11/09/22 linagliptin 5 mg tablet (Tradjenta) 5 mg DAILY 11/15/21 11/09/22 losartan 100 mg tablet 100 mg DAILY 11/15/21 11/09/22 omeprazole 40 mg capsule,delayed 40 mg DAILY 11/15/21 11/09/22 release albuterol sulfate 90 mcg/actuation 2 puff inhalation PRN PRN 11/09/22 11/09/22 aerosol inhaler Shortness Of Breath clonidine HCl 0.2 mg tablet 0.2 mg BID 11/09/22 11/09/22 hydralazine 25 mg tablet 25 mg TID 11/09/22 11/09/22 <LENNOX Mclean Last Filed: 11/09/22 04:08> Allergies/Adverse Reactions: Allergies Allergy/AdvReac Type Severity Reaction Status Date / Time insulin glargine Allergy Severe Swelling Verified 11/04/22 16:57 amoxicillin Allergy Unknown Unknown Verified 11/04/22 16:57 cephalexin Allergy Unknown Unknown Verified 11/04/22 16:57 doxycycline Allergy Unknown Itching Verified 11/04/22 16:57 latex Allergy Unknown Unknown Verified 11/04/22 16:57 Penicillins Allergy Unknown Unknown Verified 11/04/22 16:57 sulfamethoxazole Allergy Unknown Swelling Verified 11/04/22 16:57 sumatriptan Allergy Unknown Unknown Verified 11/04/22 16:57 trazodone Allergy Unknown Swelling Verified 11/04/22 16:57 trimethoprim Allergy Unknown Swelling Verified 11/04/22 16:57 clindamycin Allergy Unknown Verified 11/04/22 16:57 <LENNOX Mclean Last Filed: 11/09/22 04:08> Review of Systems Review of Systems: CONSTITUTIONAL: Denies fever, chills, or sweats. CARDIOVASCULAR: See HPI. RESPIRATORY: See HPI. GASTROINTESTINAL: See HPI. GENITOURINARY: Denies dysuria or hematuria. SKIN: Denies rash or itching. MUSCULOSKELETAL: Denies back pain, joint pain, or myalgia. NEUROLOGIC: See HPI. <LENNOX Mclean Last Filed: 11/09/22 04:08> All systems reviewed & are unremarkable except as noted in HPI and below <LENNOX Mclean Last Filed: 11/09/22 04:08> PMFSH Past Medical History Medical History: Medical History History of CVA (cerebrovascular accident) History of diabetes mellitus
[2022-11-09 02:37] LABS: Appearance Urine Clear (Clear); Bacteria Urine None Seen /hpf; Bilirubin Urine Negative (Negative); Blood Urine Negative (Negative); Color Urine Yellow (Yellow); Glucose Urine UA 3+ mg/dL (Negative); Ketones Urine Negative (Negative); Leukocyte Esterase Ur Negative LEU/UL (Negative); Nitrate Urine Negative (Negative); Non Pathogenic Casts 0-2; Protein Urine 1+ mg/dL (Negative); RBC Urine 0-2 /hpf (0-2); Squamous Epithelial Cell Urine Occasional /hpf (Few); Urobilinogen Urine 0.2 mg/dL (<2.0); WBC Urine 0-5 /hpf
[2022-11-09 02:46] LABS: Specific Grav Ur 1.041 (1.001-1.035)
[2022-11-09 02:58] LABS: Add Urine Microscopic? NO
[2022-11-09 03:16] LABS: Barbiturate Screen Urine Negative (Negative); Benzodiazepines Screen Urine Negative (Negative)
[2022-11-09 03:18] LABS: Cannabinoid Screen Urine Negative (Negative); Cocaine Screen Urine Negative (Negative); Methadone Screen Urine Negative (Negative); Opiate Screen Urine Negative (Negative); Phencyclidine Screen Urine Negative (Negative)
[2022-11-09 03:20] LABS: Troponin I 0.052 ng/mL (0.000-0.034)
[2022-11-09 03:33] LABS: Ethanol < 10 mg/dL (<10)
[2022-11-09 04:12] LABS: Amphetamine Screen Urine Positive (Negative)
[2022-11-09] MEDS: ASPIRIN 81 MG CHEWABLE TABLET 324 MG PO (04:18)
[2022-11-09] MEDS: PANTOPRAZOLE SODIUM IV 40 MG VIAL IV PUSH ×3 (04:19→17:43)
[2022-11-09] MEDS: BELLADONNA ALK/PHENOB ELIX 10 ML, MAG HYDROX/ALUMINUM HYD/SIMETH 30 ML, LIDOCAINE HCL 2... PO (04:20)
[2022-11-09] MEDS: METOPROLOL TARTRATE INJ 5 MG/5 ML VIAL IV PUSH (04:42)
[2022-11-09 04:56] LABS: Glucose Point of Care 251 mg/dl (65-105)
[2022-11-09] MEDS: SODIUM CHLORIDE 0.9% IV 1,000 ML 100 ML IV CONT ×2 (05:50→15:13)
--- NOTE | 2022-11-09 07:51 | ADMGEN ---
This patient, Adalgisa Tirado, was admitted to IMU Room 206-01 on 11/09/2022 at 0530. Patient/family oriented to hospital policies and general routines including ID bracelet, bed and alarms, visiting hours, pain management, procedures, bathroom and other care routines, personal items, smoking policy, room service/diet, and visiting hours. Information on how to activate the Rapid Response Team has been discussed. Patient/Family are encouraged to report perceived risks to care and to ask questions if they do not understand what they are told or what they should do.
[2022-11-09 07:53] LABS: Glucose Point of Care 227 mg/dl (65-105)
[2022-11-09] MEDS: INSULIN ASPART (*BKC) 100 UNITS/ML SUB-Q ×3 (08:41→20:13)
[2022-11-09 11:38] LABS: Glucose Point of Care 167 mg/dl (65-105)
[2022-11-09] MEDS: hydrALAZINE HCL 25 MG TABLET BY MOUTH ×2 (11:44→17:43)
[2022-11-09] MEDS: LOSARTAN POTASSIUM 100 MG TABLET BY MOUTH (11:44)
[2022-11-09] MEDS: CLOPIDOGREL BISULFATE 75 MG TABLET BY MOUTH (11:45)
[2022-11-09] MEDS: amLODIPine BESYLATE 5 MG TABLET 10 MG PO (11:45)
--- NOTE | 2022-11-09 13:39 | PM.CNCAR ---
Assessment and Plan Assessment and plan (1) Hypertensive urgency: Code(s): I16.0 - Hypertensive urgency Status: Acute Assessment and Plan: Blood pressures have now normalized. Her home medications have been restarted. I suspect she is noncompliant with her medications. Echo pending. UDS is positive for amphetamine, which can contribute to hypertension. (2) Elevated troponin: Code(s): R77.8 - Other specified abnormalities of plasma proteins Status: Acute Assessment and Plan: Mildly elevated at 0.052 --> 0.060. EKG without ischemic changes. Probably secondary to hypertensive urgency. Obtain echo. History of Present Illness History of Present Illness Consult date/time: 11/09/22 13:39 Requesting physician: Jolie Wall MD Consult reason: Other (Elevated troponin) Reason For Visit: CHF, Elevated Trop, Uncontrolled DM, Gastritis, HT Narrative: We are consulted for elevated troponin. This is a 62-year-old female with a history of CVA, hypertension who presented to the ER for evaluation of abdominal pain and left shoulder pain. Patient is a very poor historian and doesn't provide many details, difficult to keep her awake during my conversation with her. Patient was recently admitted here at [place] on 11/04 for hypertensive urgency, elevated BNP, elevated troponin. She left AMA, reportedly was aggressive with staff and pulled out her IV. Patient was referred back to the ED yesterday after seeing her PCP. Patient tells me she has been having left shoulder pain and lower abdominal pain. Cannot say when it started. States she feels free now. This time, patient noted to have BP of 199/120. BNP elevated at 3500. Troponin mildly elevated. CXR without acute findings. CT without acute findings. Her home medications have been restarted, and blood pressure has normalized. Of note, UDS is positive for amphetamine. Patient states she thinks she has been taking all her home blood pressure medications. EKG with sinus tachycardia, LVH with secondary changes, probable old inferior infarct. Review of Systems Review of Systems: All systems reviewed & are unremarkable except as noted in HPI and below (HPI) [facility] Past Medical History Medical History History of CVA (cerebrovascular accident) History of diabetes mellitus HTN (hypertension) Surgical History Surgical History No pertinent past surgical history Social History Social History Smoking status: Current every day smoker Alcohol intake: never Substance use: unknown Spiritual care concerns: No Meds Home Medications and Allergies Home Medications Medication Instructions Recorded Confirmed Type amlodipine 10 mg tablet 10 mg DAILY 04/26/21 11/09/22 History clopidogrel 75 mg tablet 75 mg DAILY 11/15/21 11/09/22 History linagliptin 5 mg tablet (Tradjenta) 5 mg DAILY 11/15/21 11/09/22 History losartan 100 mg tablet 100 mg DAILY 11/15/21 11/09/22 History omeprazole 40 mg capsule,delayed 40 mg DAILY 11/15/21 11/09/22 History release albuterol sulfate 90 mcg/actuation 2 puff inhalation PRN PRN 11/09/22 11/09/22 History aerosol inhaler Shortness Of Breath clonidine HCl 0.2 mg tablet 0.2 mg BID 11/09/22 11/09/22 History hydralazine 25 mg tablet 25 mg TID 11/09/22 11/09/22 History Allergies Allergy/AdvReac Type Severity Reaction Status Date / Time insulin glargine Allergy Severe Swelling Verified 11/04/22 16:57 amoxicillin Allergy Unknown Unknown Verified 11/04/22 16:57 cephalexin Allergy Unknown Unknown Verified 11/04/22 16:57 doxycycline Allergy Unknown Itching Verified 11/04/22 16:57 latex Allergy Unknown Unknown Verified 11/04/22 16:57 Penicillins Allergy Unknown Unknown Verified 11/04/22 16:57 sulfamethoxazole Allergy Unknown Swelling Verified 11/04/22 16:57 sumatriptan Al
--- NOTE | 2022-11-09 14:14 | PCPTNOTE ---
Waiting on complete work up prior to seeing pt. Will follow.
[2022-11-09 15:58] LABS: Glucose Point of Care 209 mg/dl (65-105)
--- NOTE | 2022-11-09 16:22 | PM.IMHP ---
H&P: HPI History of Present Illness Date/Time: 11/09/22 16:22 Chief Complaint: Pt is a 62 year old female history of HTN, CVA, DM admitted for abdominal pains. Pt had a recent admission in [place] for HTN and kidney stone. Pt left AMA at that time. Pt is feeling very tired today not answering all my questions, unclear if she is taking her medications at home. ct scan shows - Nonobstructing left nephrolithiasis. Cxr nil acute labs show - nil acute trop show EKG with sinus tachycardia, LVH with secondary changes, probable old inferior infarct. UDs positive for amphetamines Pt has some behavioral issues and agitation as per nursing staff from last visit Pt admitted for possible gastritis ? colitis Narrative: Pt is sleepy poor historian [facility] Past Medical History Medical History History of CVA (cerebrovascular accident) History of diabetes mellitus HTN (hypertension) Surgical History Surgical History No pertinent past surgical history Social History Social History Smoking status: Current every day smoker Alcohol intake: never Substance use: unknown Spiritual care concerns: No Meds Home Medications and Allergies Home Medications Medication Instructions Recorded Confirmed Type amlodipine 10 mg tablet 10 mg DAILY 04/26/21 11/09/22 History clopidogrel 75 mg tablet 75 mg DAILY 11/15/21 11/09/22 History linagliptin 5 mg tablet (Tradjenta) 5 mg DAILY 11/15/21 11/09/22 History losartan 100 mg tablet 100 mg DAILY 11/15/21 11/09/22 History omeprazole 40 mg capsule,delayed 40 mg DAILY 11/15/21 11/09/22 History release albuterol sulfate 90 mcg/actuation 2 puff inhalation PRN PRN 11/09/22 11/09/22 History aerosol inhaler Shortness Of Breath clonidine HCl 0.2 mg tablet 0.2 mg BID 11/09/22 11/09/22 History hydralazine 25 mg tablet 25 mg TID 11/09/22 11/09/22 History Allergies Allergy/AdvReac Type Severity Reaction Status Date / Time insulin glargine Allergy Severe Swelling Verified 11/04/22 16:57 amoxicillin Allergy Unknown Unknown Verified 11/04/22 16:57 cephalexin Allergy Unknown Unknown Verified 11/04/22 16:57 doxycycline Allergy Unknown Itching Verified 11/04/22 16:57 latex Allergy Unknown Unknown Verified 11/04/22 16:57 Penicillins Allergy Unknown Unknown Verified 11/04/22 16:57 sulfamethoxazole Allergy Unknown Swelling Verified 11/04/22 16:57 sumatriptan Allergy Unknown Unknown Verified 11/04/22 16:57 trazodone Allergy Unknown Swelling Verified 11/04/22 16:57 trimethoprim Allergy Unknown Swelling Verified 11/04/22 16:57 clindamycin Allergy Unknown Verified 11/04/22 16:57 Vital Signs Vital Signs - 24 hr 11/08/22 18:02 11/08/22 21:23 11/09/22 01:52 Temperature 36.6 C 36.6 C Pulse Rate 109 H 100 95 Respiratory Rate 20 20 17 Blood Pressure 199/120 H 183/107 H 162/93 H Pulse Oximetry 99 96 97 Oxygen Delivery 11/09/22 04:17 11/09/22 05:33 11/09/22 06:00 Temperature 36.6 C Pulse Rate 92 94 104 H Respiratory Rate 16 18 Blood Pressure 155/98 H 169/93 H Pulse Oximetry 100 98 Oxygen Delivery 11/09/22 07:56 11/09/22 08:00 11/09/22 08:00 Temperature 35.9 C L Pulse Rate 89 92 Respiratory Rate 20 Blood Pressure 146/81 H Pulse Oximetry 96 Oxygen Delivery Room Air 11/09/22 10:00 11/09/22 11:43 11/09/22 12:00 Temperature 36.1 C L Pulse Rate 88 74 85 Respiratory Rate 20 Blood Pressure 117/62 Pulse Oximetry 97 Oxygen Delivery 11/09/22 12:00 11/09/22 14:00 11/09/22 16:15 Temperature 36.2 C L Pulse Rate 74 75 Respiratory Rate 18 Blood Pressure 120/65 Pulse Oximetry 97 Oxygen Delivery Room Air Exam Const: General: in distress and other (sleepy ) Nutritional Appearance: overweight Orientation/consciousness: oriented to person HENMT: Head: normal to inspec
--- NOTE | 2022-11-09 17:05 | PC.NURSE ---
Sister, Cece, called to check on patient. Update given and all questions answered.
[2022-11-09] MEDS: cloNIDine HCL 0.2 MG TABLET BY MOUTH (17:43)
[2022-11-09 20:56] LABS: Glucose Point of Care 220 mg/dl (65-105)
--- NOTE | 2022-11-09 21:44 | PC.NURSE ---
This patient, Adalgisa Tirado, was transferred to [ [id number]] on 11/09/22 at 2135. Personal belongings sent with patient. Report given to [ Ezra RN]. Appropriate documentation sent with patient.
[2022-11-10] VITALS (9 sets, daily range): BP systolic 99–159; BP diastolic 67–82; PULSE 63–95; RESP 16–18; TEMP 36.6–37; O2SAT 96–99
[2022-11-10] MEDS: SODIUM CHLORIDE 0.9% IV 1,000 ML 100 ML IV CONT (00:13)
--- NOTE | 2022-11-10 04:38 | PC.NURSE ---
Patient arrived to floor from IMU at 2120 this evening. Patient verbally aggressive and abusive upon arrival. Patient cussing and yelling at staff about wanting her cigarrettes and not wanting them to bother her. Informed patient that this is a non-smoking campus and that her cigarettes will be locked in the room until she is ready for discharge.
--- NOTE | 2022-11-10 06:00 | ECHO_ITS ---
Patient Info Name: Adalgisa Tirado Age: 62 years : 1960 Gender: Female Ht: 64 in Wt: 161 lbs BSA: 1.83 m2 HR: 76 bpm BP: 104 / 66 mmHg Heart Rhythm: Sinus Rhythm Technical Quality: Fair Exam Date: 11/10/2022 11:43 AM Exam Location: [facility] Pulmonary Exam Room: 314 Patient Status: Outpatient Admit Date: 11/09/2022 Staff Ordering Physician: Elza Quiroga PA-C Door Operator: Trudi Bermudez RCS Attending Provider: Malorie Pacheco DO Referring Physician: Junaid HANCOCK; Exam Type: CA echo doppler color flow Study Info Indications - chf elevated bnp cp sob Complete two-dimensional, color flow and Doppler transthoracic echocardiogram is performed. Summary 1. Complete two-dimensional, color flow and Doppler transthoracic echocardiogram is performed. 2. Left ventricular chamber dimension is normal. 3. Left ventricular systolic function is normal, estimated at 55-60%. 4. There is severely increased left ventricular wall thickness. 5. The left ventricular diastolic function is grade II diastolic dysfunction. 6. Left atrial chamber dimension is mildly enlarged. 7. There is moderate mitral valve regurgitation. 8. The mitral valve has thickened leaflets. 9. Mild pulmonary hypertension, estimated pulmonary arterial systolic pressure is 44 mmHg. Left Ventricle Left ventricular chamber dimension is normal. Left ventricular systolic function is normal, estimated at 55-60%. There is severely increased left ventricular wall thickness. The left ventricular diastolic function is grade II diastolic dysfunction. Right Ventricle Right ventricular chamber dimension is normal. Right ventricular systolic function is normal. Left Atria Left atrial chamber dimension is mildly enlarged. Right Atria Right atrial chamber dimension is normal. Atrial Septum Intact interatrial septum visualized by color flow imaging. Aortic Valve The aortic valve is trileaflet. There is mild aortic valve sclerosis. There is no aortic valve stenosis. There is trace aortic valve regurgitation. Pulmonic Valve The pulmonic valve is normal. There is no pulmonic valve stenosis. There is trace pulmonic regurgitation. Mitral Valve The mitral valve has thickened leaflets. There is no mitral valve stenosis. There is moderate mitral valve regurgitation. Tricuspid Valve The tricuspid valve leaflets are normal. There is no significant tricuspid valve stenosis. Mild pulmonary hypertension, estimated pulmonary arterial systolic pressure is 44 mmHg. Pericardium/Pleural The pericardium appears normal. There is no pericardial effusion. Inferior Vena Cava Normal inferior vena cava with >50% collapse upon inspiration consistent with normal right atrial pressure, 8 mmHg. Aorta The aortic root size at the sinus of Valsalva is normal. Left Ventricular Outflow Tract Name Value Normal LVOT 2D LVOT Diameter 2.0 cm LVOT Doppler LVOT Peak Gradient 6 mmHg LVOT Mean Gradient 3 mmHg LVOT VTI 22 cm LVOT VTI/AV VTI Ratio 0.9 LVOT Stroke Volume 69 ml LVOT CO
[2022-11-10 07:39] LABS: Glucose Point of Care 170 mg/dl (65-105)
[2022-11-10] MEDS: amLODIPine BESYLATE 5 MG TABLET 10 MG PO (08:27)
[2022-11-10] MEDS: CLOPIDOGREL BISULFATE 75 MG TABLET BY MOUTH (08:27)
[2022-11-10] MEDS: LOSARTAN POTASSIUM 100 MG TABLET BY MOUTH (08:27)
[2022-11-10] MEDS: cloNIDine HCL 0.2 MG TABLET BY MOUTH ×2 (08:28→17:07)
[2022-11-10] MEDS: hydrALAZINE HCL 25 MG TABLET BY MOUTH ×3 (08:28→17:07)
[2022-11-10] MEDS: ENOXAPARIN 40 MG/0.4 ML SYRINGE SUB-Q (08:28)
--- NOTE | 2022-11-10 09:07 | PCPTNOTE ---
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 Will continue to attempt.
[2022-11-10] MEDS: PANTOPRAZOLE SODIUM IV 40 MG VIAL IV PUSH ×2 (09:48→17:49)
[2022-11-10] MEDS: ONDANSETRON INJ 4 MG/2 ML VIAL IV PUSH (09:48)
[2022-11-10 11:54] LABS: Glucose Point of Care 263 mg/dl (65-105)
[2022-11-10] MEDS: INSULIN ASPART (*BKC) 100 UNITS/ML SUB-Q ×2 (12:19→21:03)
--- NOTE | 2022-11-10 14:16 | PM.IMPN ---
Progress Note: A&P Assessment and Plan (1) HTN (hypertension): Code(s): I10 - Essential (primary) hypertension Status: Acute Assessment and Plan: Hypertensive upon arrival blood pressure 199/120. EKG with sinus tachycardia nonspecific ST-T changes troponin came back elevated at 0.043 similar to levels in the past. BNP elevated at 3500. Continue antihypertensive regimen and monitor. (2) Uncontrolled diabetes mellitus: Qualifiers: Diabetes mellitus type: type 2 Glycemic state: with hyperglycemia Qualified Code(s): E11.65 - Type 2 diabetes mellitus with hyperglycemia Status: Acute Assessment and Plan: Accuchecks Blood sugars running high at 300 continue SSI (3) Gastritis: Qualifiers: Chronicity: acute Gastritis bleeding: without bleeding Gastritis type: unspecified gastritis Qualified Code(s): K29.00 - Acute gastritis without bleeding Code(s): K29.70 - Gastritis, unspecified, without bleeding Status: Acute Assessment and Plan: Continue PPI IV CT scan of the abdomen and pelvis showed findings of esophagitis gastritis colitis colitis nonspecific infectious versus inflammatory. No diarrhea no white cell count next on PPI Lipase normal (4) Colitis: Code(s): K52.9 - Noninfective gastroenteritis and colitis, unspecified Status: Acute Assessment and Plan: Continue PPI IV watch for any vomiting or diarrhea (5) Elevated troponin: Code(s): R77.8 - Other specified abnormalities of plasma proteins Status: Acute Assessment and Plan: Mildly elevated troponin with flat trajectory. Cardiology has been consulted Echo 5 11/10/2022: EF 55-60% severely increased left ventricular wall thickness grade 2 diastolic dysfunction moderate mitral valve regurgitation. Mild pulmonary hypertension. Plan Altered mental status positive for amphetamine UDS is negative. UA is negative no signs of infection alcohol is negative chest x-ray is no acute cardiopulmonary disease. CT abdomen pelvis with findings of distal esophagitis and gastritis hepatic steatosis. Concern for colitis in the sigmoid colon secondary mesenteric adenitis. Postsurgical ectasia common bile duct findings concerning for bronchitis left nephrolithiasis. Will check ammonia level Subjective Date/time seen: 11/10/22 14:16 Interval history: Patient presented with abdominal pain. Previous history of Tracey Hernández historian a bit confused. Presented on 11/04 with hypertensive urgency elevated BNP elevated troponin but left against medical advise. Reported aggressiveness to the staff. She is getting her IV line placed this morning. She continues to report intermittent left-sided chest pain radiating to her shoulder and back. She has a history of diabetes hypertension and stroke. Review of Systems Review of Systems: All systems reviewed & are unremarkable except as noted in HPI and below Exam Narrative: GENERAL: Chronically ill appearing, appears older than stated age, well-nourished, in no acute distress. Confused looking HEAD: Normocephalic, atraumatic. NECK: Supple. No adenopathy, no masses. RESPIRATORY: Airway patent, respirations nonlabored.? Coarse breath sounds bilaterally, no significant focal lung sounds. CARDIOVASCULAR: Regular rhythm without murmurs, rubs, or gallops. Peripheral pulses 2+ and equal bilaterally. ABDOMINAL: Soft, nontender, nondistended, no hepatosplenomegaly. Normoactive BS. MUSCULOSKELETAL: Moves all extremities. No gross deformities. 1+ pitting edema to lower extremities bilaterally, no significant tenderness. SKIN: Warm, dry, normal color. No rashes. NEURO: A&O X2, unsure of year. Speech somewhat slow, patient has to think about each word.? Appears intermittent somnolent, but easily arousable. Cranial nerves II-XII grossly intact. No ataxic movements. PSYCHIATRIC: Appropriate mood and affect. Normal interaction. Objective Data
--- NOTE | 2022-11-10 15:21 | PCCCNOTE ---
On 11/10/22, the student, [Irene Javier ], provided care and completed [facility] documentation on this patient. I have reviewed the student's documentation and agree with the findings.
[2022-11-10 15:56] LABS: Ammonia < 9 umol/L (9-30)
[2022-11-10 16:34] LABS: Glucose Point of Care 182 mg/dl (65-105)
[2022-11-10 21:40] LABS: Glucose Point of Care 341 mg/dl (65-105)
[2022-11-11] VITALS (10 sets, daily range): BP systolic 94–134; BP diastolic 60–75; PULSE 60–80; RESP 16; TEMP 36.4–36.7; O2SAT 97–99
[2022-11-11] MEDS: HYDROmorphone HCL INJ (*CRX) 1 MG/ML SYR IV PUSH (00:12)
[2022-11-11] MEDS: HYDROmorphone HCL INJ (*CRX) 1 MG/ML SYR 0.5 MG IV PUSH ×2 (06:04→09:26)
[2022-11-11 06:27] LABS: Basophils Absolute Auto 0.1 K/mm3 (0.0-0.1); Basophils Percent Auto 0.5 % (0.2-1.2); Eosinophils Absolute Auto 0.1 K/mm3 (0-0.3); Eosinophils Percent Auto 1.5 % (0-4.4); Hematocrit 40.1 % (37.0-47.0); Hemoglobin 13.1 g/dL (12.0-15.0); Immature Granulocyte Absolute 0.03 K/mm3 (0.00-0.031); Immature Granulocyte Percent A 0.3 % (0-0.5); Lymphocytes Absolute Auto 3.49 K/mm3 (0.9-3.2); Mean Corpuscular HGB Conc 32.7 g/dl (32-36); Mean Corpuscular Hemoglobin 28.3 pg (26-34); Mean Corpuscular Volume 86.6 fl (80-100); Mean Platelet Volume 11.4 fl (7.4-10.4); Monocytes Absolute Auto 0.7 K/mm3 (0.1-0.6); Monocytes Percent Auto 7.1 % (2.6-8.5); Neutrophils Absolute Auto 4.8 K/mm3 (1.3-6.7); Neutrophils Percent Auto 52.6 % (45.5-73.1); Platelet Count Result 218 k/mm3 (150-375); Red Blood Count 4.63 M/mm3 (4.2-5.4); Red Cell Distribution Width 13.2 % (11.5-14.5); White Blood Count 9.2 K/mm3 (4.5-10.0)
[2022-11-11 07:04] LABS: Alanine Aminotransferase 16 U/L (6-35); Albumin Level 3.4 g/dL (3.5-5.1); Alkaline Phosphatase 96 U/L (38-126); Anion Gap 4 mmol/L (8-16); Aspartate Amino Transferase 17 U/L (14-36); Bilirubin,Total 0.6 mg/dL (0.2-1.3); Blood Urea Nitrogen 23 mg/dL (7-17); Calcium 8.8 mg/dL (8.4-10.2); Carbon Dioxide 28 mmol/L (22-30); Chloride 107 mmol/L (98-107); Estimated CRCL calculation 38 ml/min; Estimated Glomerular Filt Rate 38; Glucose 168 mg/dL (65-110); Potassium 4.6 mmol/L (3.4-5.0); Sodium 139 mmol/L (137-145)
[2022-11-11 08:05] LABS: Glucose Point of Care 196 mg/dl (65-105)
[2022-11-11] MEDS: ENOXAPARIN 40 MG/0.4 ML SYRINGE SUB-Q (08:45)
[2022-11-11] MEDS: hydrALAZINE HCL 25 MG TABLET BY MOUTH ×2 (08:46→12:29)
[2022-11-11] MEDS: cloNIDine HCL 0.2 MG TABLET BY MOUTH ×2 (08:46→18:13)
[2022-11-11] MEDS: CLOPIDOGREL BISULFATE 75 MG TABLET BY MOUTH (08:46)
[2022-11-11] MEDS: amLODIPine BESYLATE 5 MG TABLET 10 MG PO (08:52)
[2022-11-11] MEDS: PANTOPRAZOLE SODIUM IV 40 MG VIAL IV PUSH ×2 (08:53→17:28)
[2022-11-11 11:42] LABS: Glucose Point of Care 218 mg/dl (65-105)
[2022-11-11] MEDS: INSULIN ASPART (*BKC) 100 UNITS/ML SUB-Q ×3 (12:27→20:42)
--- NOTE | 2022-11-11 14:20 | PM.IMPN ---
Progress Note: A&P Assessment and Plan (1) HTN (hypertension): Code(s): I10 - Essential (primary) hypertension Status: Acute Assessment and Plan: Hypertensive upon arrival blood pressure 199/120. EKG with sinus tachycardia nonspecific ST-T changes troponin came back elevated at 0.043 similar to levels in the past. BNP elevated at 3500. Continue antihypertensive regimen and monitor. will hold oriontn today as her cr bpe up and blood pressure more normal now. (2) Uncontrolled diabetes mellitus: Qualifiers: Diabetes mellitus type: type 2 Glycemic state: with hyperglycemia Qualified Code(s): E11.65 - Type 2 diabetes mellitus with hyperglycemia Status: Acute Assessment and Plan: Accuchecks Blood sugars running high at 300 continue SSI (3) Gastritis: Qualifiers: Chronicity: acute Gastritis bleeding: without bleeding Gastritis type: unspecified gastritis Qualified Code(s): K29.00 - Acute gastritis without bleeding Code(s): K29.70 - Gastritis, unspecified, without bleeding Status: Acute Assessment and Plan: Continue PPI IV CT scan of the abdomen and pelvis showed findings of esophagitis gastritis colitis colitis nonspecific infectious versus inflammatory. No diarrhea no white cell count next on PPI Lipase normal abdominal pain today likely due to above finding (4) Colitis: Code(s): K52.9 - Noninfective gastroenteritis and colitis, unspecified Status: Acute Assessment and Plan: Continue PPI IV watch for any vomiting or diarrhea (5) Elevated troponin: Code(s): R77.8 - Other specified abnormalities of plasma proteins Status: Acute Assessment and Plan: Mildly elevated troponin with flat trajectory. Cardiology has been consulted Echo 5 11/10/2022: EF 55-60% severely increased left ventricular wall thickness grade 2 diastolic dysfunction moderate mitral valve regurgitation. Mild pulmonary hypertension. Plan Altered mental status positive for amphetamine UDS is negative. UA is negative no signs of infection alcohol is negative chest x-ray is no acute cardiopulmonary disease. CT abdomen pelvis with findings of distal esophagitis and gastritis hepatic steatosis. Concern for colitis in the sigmoid colon secondary mesenteric adenitis. Postsurgical ectasia common bile duct findings concerning for bronchitis left nephrolithiasis. these findings were tno relatd to the formal ct report. ammonia level is normal now Subjective Date/time seen: 11/11/22 14:20 Interval history: no overnight events. pateint had a pain in her left lower quadrant for which she got dilaudid iv. she reports she is hurting in her abdomen. no nausea, vomiting. eating her breakfast this am. no fever, chills. Review of Systems Review of Systems: All systems reviewed & are unremarkable except as noted in HPI and below Exam Narrative: GENERAL: Chronically ill appearing, appears older than stated age, well-nourished, in no acute distress. Confused looking HEAD: Normocephalic, atraumatic. NECK: Supple. No adenopathy, no masses. RESPIRATORY: Airway patent, respirations nonlabored.? Coarse breath sounds bilaterally, no significant focal lung sounds. CARDIOVASCULAR: Regular rhythm without murmurs, rubs, or gallops. Peripheral pulses 2+ and equal bilaterally. ABDOMINAL: Soft, nontender, nondistended, no hepatosplenomegaly. Normoactive BS. MUSCULOSKELETAL: Moves all extremities. No gross deformities. 1+ pitting edema to lower extremities bilaterally, no significant tenderness. SKIN: Warm, dry, normal color. No rashes. NEURO: A&O X3 Speech somewhat slow but more coherent today. Cranial nerves II-XII grossly intact. No ataxic movements. PSYCHIATRIC: Appropriate mood and affect. Normal interaction. Objective Data Vital Signs Vital Signs: Vital Signs - 24 hr 11/10/22 18:20 11/10/22 20:40 11/10/22 20:00 Temperature 97.9 F Pulse R
[2022-11-11 17:05] LABS: Glucose Point of Care 202 mg/dl (65-105)
[2022-11-11 20:46] LABS: Glucose Point of Care 264 mg/dl (65-105)
[2022-11-12] VITALS: PULSE 64
[2022-11-12 04:00] VITALS: PULSE 68
[2022-11-12 06:00] VITALS: BP 114/68; PULSE 85; RESP 18; TEMP 36.6; O2SAT 98
[2022-11-12 06:25] LABS: Basophils Percent Auto 0.5 % (0.2-1.2); Eosinophils Absolute Auto 0.2 K/mm3 (0-0.3); Eosinophils Percent Auto 1.7 % (0-4.4); Hematocrit 38.7 % (37.0-47.0); Hemoglobin 12.7 g/dL (12.0-15.0); Immature Granulocyte Absolute 0.03 K/mm3 (0.00-0.031); Immature Granulocyte Percent A 0.3 % (0-0.5); Lymphocytes Absolute Auto 3.18 K/mm3 (0.9-3.2); Lymphocytes Percent Auto 36.6 % (18.3-44.2); Mean Corpuscular HGB Conc 32.8 g/dl (32-36); Mean Corpuscular Hemoglobin 28.2 pg (26-34); Mean Corpuscular Volume 85.8 fl (80-100); Mean Platelet Volume 11.6 fl (7.4-10.4); Monocytes Absolute Auto 0.6 K/mm3 (0.1-0.6); Monocytes Percent Auto 7.4 % (2.6-8.5); Neutrophils Absolute Auto 4.6 K/mm3 (1.3-6.7); Neutrophils Percent Auto 53.5 % (45.5-73.1); Platelet Count Result 205 k/mm3 (150-375); Red Blood Count 4.51 M/mm3 (4.2-5.4); Red Cell Distribution Width 13.2 % (11.5-14.5); White Blood Count 8.7 K/mm3 (4.5-10.0)
[2022-11-12 06:47] LABS: Alanine Aminotransferase 17 U/L (6-35); Albumin Level 3.6 g/dL (3.5-5.1); Alkaline Phosphatase 96 U/L (38-126); Anion Gap 8 mmol/L (8-16); Aspartate Amino Transferase 20 U/L (14-36); Bilirubin,Total 0.6 mg/dL (0.2-1.3); Blood Urea Nitrogen 22 mg/dL (7-17); Calcium 8.7 mg/dL (8.4-10.2); Carbon Dioxide 26 mmol/L (22-30); Chloride 104 mmol/L (98-107); Estimated CRCL calculation 48 ml/min; Estimated Glomerular Filt Rate 51; Glucose 211 mg/dL (65-110); Magnesium 1.9 mg/dL (1.6-2.3); Potassium 4.1 mmol/L (3.4-5.0); Sodium 138 mmol/L (137-145)
[2022-11-12 07:36] LABS: Glucose Point of Care 195 mg/dl (65-105)
[2022-11-12 08:00] VITALS: PULSE 73
[2022-11-12 08:15] VITALS: BP 141/73
[2022-11-12] MEDS: hydrALAZINE HCL 25 MG TABLET BY MOUTH ×2 (08:26→11:22)
[2022-11-12] MEDS: cloNIDine HCL 0.2 MG TABLET BY MOUTH (08:26)
[2022-11-12] MEDS: PANTOPRAZOLE SODIUM IV 40 MG VIAL IV PUSH (08:26)
[2022-11-12] MEDS: ENOXAPARIN 40 MG/0.4 ML SYRINGE SUB-Q (08:26)
[2022-11-12] MEDS: CLOPIDOGREL BISULFATE 75 MG TABLET BY MOUTH (08:26)
[2022-11-12] MEDS: amLODIPine BESYLATE 5 MG TABLET 10 MG PO (08:26)
[2022-11-12 11:15] LABS: Glucose Point of Care 353 mg/dl (65-105)
[2022-11-12] MEDS: INSULIN ASPART (*BKC) 100 UNITS/ML SUB-Q (11:21)
--- NOTE | 2022-11-12 11:33 | PM.DS ---
DS: Admitting Diagnosis Discharge Date November 12, 2022 Admitting Diagnosis hypertension, noncompliant DS: Discharge Diagnosis Discharge Diagnosis (1) HTN (hypertension): Code(s): I10 - Essential (primary) hypertension Status: Acute Assessment and Plan: Hypertensive upon arrival blood pressure 199/120. EKG with sinus tachycardia nonspecific ST-T changes troponin came back elevated at 0.043 similar to levels in the past. BNP elevated at 3500. Continue antihypertensive regimen and monitor. will hold losaratn today as her cr bpe up and blood pressure more normal now. (2) Uncontrolled diabetes mellitus: Qualifiers: Diabetes mellitus type: type 2 Glycemic state: with hyperglycemia Qualified Code(s): E11.65 - Type 2 diabetes mellitus with hyperglycemia Status: Acute Assessment and Plan: Accuchecks Blood sugars running high at 300 continue SSI (3) Gastritis: Qualifiers: Chronicity: acute Gastritis bleeding: without bleeding Gastritis type: unspecified gastritis Qualified Code(s): K29.00 - Acute gastritis without bleeding Code(s): K29.70 - Gastritis, unspecified, without bleeding Status: Acute Assessment and Plan: Continue PPI IV CT scan of the abdomen and pelvis showed findings of esophagitis gastritis colitis colitis nonspecific infectious versus inflammatory. No diarrhea no white cell count next on PPI Lipase normal abdominal pain today likely due to above finding (4) Colitis: Code(s): K52.9 - Noninfective gastroenteritis and colitis, unspecified Status: Acute Assessment and Plan: Continue PPI IV watch for any vomiting or diarrhea (5) Elevated troponin: Code(s): R77.8 - Other specified abnormalities of plasma proteins Status: Acute Assessment and Plan: Mildly elevated troponin with flat trajectory. Cardiology has been consulted Echo 5 11/10/2022: EF 55-60% severely increased left ventricular wall thickness grade 2 diastolic dysfunction moderate mitral valve regurgitation. Mild pulmonary hypertension. Plan Altered mental status positive for amphetamine UDS is negative. UA is negative no signs of infection alcohol is negative chest x-ray is no acute cardiopulmonary disease. CT abdomen pelvis with findings of distal esophagitis and gastritis hepatic steatosis. Concern for colitis in the sigmoid colon secondary mesenteric adenitis. Postsurgical ectasia common bile duct findings concerning for bronchitis left nephrolithiasis. these findings were tno relatd to the formal ct report. ammonia level is normal now DS: Summary Hospital Course Hospital Course: patient was admitted with elevated blood pressure and diastolic CHF. Was resumed on her cardiac medications and she is much better. She also has a history of noncompliance to medications. To note she was also positive for amphetamine. She can be discharged Time Spent with Patient Time attestation: Total time spent providing and/or coordinating discharge services: Exam Narrative: GENERAL: Chronically ill appearing, appears older than stated age, well-nourished, in no acute distress. Confused looking HEAD: Normocephalic, atraumatic. NECK: Supple. No adenopathy, no masses. RESPIRATORY: Airway patent, respirations nonlabored.? Coarse breath sounds bilaterally, no significant focal lung sounds. CARDIOVASCULAR: Regular rhythm without murmurs, rubs, or gallops. Peripheral pulses 2+ and equal bilaterally. ABDOMINAL: Soft, nontender, nondistended, no hepatosplenomegaly. Normoactive BS. MUSCULOSKELETAL: Moves all extremities. No gross deformities. 1+ pitting edema to lower extremities bilaterally, no significant tenderness. SKIN: Warm, dry, normal color. No rashes. NEURO: A&O X3 Speech somewhat slow but more coherent today. Cranial nerves II-XII grossly intact. No ataxic movements. PSYCHIATRIC: Appropriate mood and affect. Normal interaction.
[2022-11-12 12:00] VITALS: PULSE 64
== END 2022-11-12 13:40 | disposition home or self-care (01) ==
LOC: ANHED 11-09 03:33 → ANHIMU 11-09 05:16 → ANH3MEDSUR 11-10 08:39 → ANHIMU 11-15 10:01
PROVIDERS: Emergency Medicine; Internal Medicine; Admitting Provider Family Medicine; Emergency Provider Physician Assistant; PCP Emergency Medicine; Visit Provider Chiropractor
DX: I11.0 Hypertensive heart disease with heart failure (principal); I50.9 Heart failure, unspecified; E11.65 Type 2 diabetes mellitus with hyperglycemia; K29.00 Acute gastritis without bleeding; K52.9 Noninfective gastroenteritis and colitis, unspecified; R77.8 Other specified abnormalities of plasma proteins; R07.9 Chest pain, unspecified; M79.89 Other specified soft tissue disorders; R06.02 Shortness of breath; N20.0 Calculus of kidney; R94.31 Abnormal electrocardiogram [ECG] [EKG]; R00.0 Tachycardia, unspecified; R79.89 Other specified abnormal findings of blood chemistry; I34.0 Nonrheumatic mitral (valve) insufficiency; I27.20 Pulmonary hypertension, unspecified; F17.210 Nicotine dependence, cigarettes, uncomplicated; Z90.49 Acquired absence of other specified parts of digestive tract; Z86.73 Personal history of transient ischemic attack (TIA), and cerebral infarction without residual deficits; Z79.02 Long term (current) use of antithrombotics/antiplatelets; Z79.51 Long term (current) use of inhaled steroids; Z79.84 Long term (current) use of oral hypoglycemic drugs; Z79.899 Other long term (current) drug therapy
CPT/HCPCS: 36415; 71046; 74177; 80053; 80307; 81003; 82140; 82948; 83735; 83880; 84484; 85025; 93005; 93306; 96361; 96372; 96374; 96375; 96376; 97161; 97165; 99285; A9270; C9113; G0378; J1170; J1650; J1815; J2405; J7030; Q9967

== ENCOUNTER 2024-02-23 22:07 | Inpatient (IN) | payer BC, SELFPAY ==
--- NOTE | ~2024-02-23 | XR_ITS ---
EXAMINATION: XR chest ET placement DATE: 02/25/2024 21:08 INDICATION: Post intubation TECHNIQUE: frontal view of the chest was obtained. COMPARISON: Chest radiograph dated 02/25/2024 8:27 PM FINDINGS: Endotracheal tube tip 4.9 cm above the steven. Again seen are diffuse groundglass opacities and incre ased interstitial pattern with Amparo B-lines throughout both lungs consistent with mild pulmonary ed gabriela. No pleural effusion or pneumothorax. Mediastinal silhouette is within normal limits for AP techn ique. Electronic device likely external to the patient projects over the right hilum. Cholecystectomy clips in right upper quadrant. IMPRESSION: 1. Mild pulmonary edema. Reviewed, dictated and finalized at location A. IMPRESSION: 1. Mild pulmonary edema.
--- NOTE | ~2024-02-23 | US_ITS ---
EXAMINATION:US venous doppler LE BI INDICATION:Leg swelling TECHNIQUE: Multiple grayscale, color flow and Doppler images of the right and left lower extremity de ep venous systems were obtained and reviewed. COMPARISON:No prior studies for comparison. FINDINGS: The common femoral, superficial femoral and popliteal veins demonstrate normal respiratory variation, augmentation and compressibility. Color flow is also seen within the posterior tibial, pe roneal, greater saphenous and profunda veins. IMPRESSION: 1: No lower extremity deep venous thrombosis. Reviewed, dictated and finalized at location B.
--- NOTE | ~2024-02-23 | XR_ITS ---
Portable chest x-ray Comparison: 02/25/2024 Clinical History: Intubated Findings: Endotracheal tube and NG tube are in satisfactory distance. There is bibasilar hazy airspa ce disease. Cardiomediastinal silhouette is stable. Bones and soft tissues are unremarkable. Impression: Support tubes, as above. Bibasilar pulmonary edema versus possibly pneumonia. Correlate clinically. Reviewed, dictated and finalized at location . Impression: Support tubes, as above. Bibasilar pulmonary edema versus possibly pneumonia. Correlate clinically.
--- NOTE | ~2024-02-23 | XR_ITS ---
Portable chest x-ray Comparison: 02/26/2024 Clinical History: Intubation Findings: Endotracheal tube and NG tube are in satisfactory positions. There is probable minimal bib asilar pulmonary edema, improved from prior exam. Cardiomediastinal silhouette is stable. Bones and soft tissues are unremarkable. Impression: Minimal bibasilar pulmonary edema, improved from prior exam. Support tubes, as above. Reviewed, dictated and finalized at location . Impression: Minimal bibasilar pulmonary edema, improved from prior exam. Support tubes, as above.
--- NOTE | ~2024-02-23 | XR_ITS ---
Portable chest x-ray Comparison: 02/27/2024 Clinical History: Tube placement Findings: Endotracheal tube and NG tube are in satisfactory positions. Suspected retrocardiac airspa ce disease. Cardiomediastinal silhouette is stable. Bones and soft tissues are unremarkable. Impression: Support tubes, as above. Suspected retrocardiac airspace disease. Correlate for atelectasis or pneumonia. Reviewed, dictated and finalized at location . Impression: Support tubes, as above. Suspected retrocardiac airspace disease. Correlate for atelectasis or pneumonia .
--- NOTE | ~2024-02-23 | CT_ITS ---
EXAMINATION: CT abdomen pelvis wo con DATE: 02/23/2024 23:48 INDICATION: Abdominal pain. TECHNIQUE: Computed tomography (CT) of the abdomen and pelvis was performed without intravenous contr ast. Automated exposure control and iterative reconstruction technique were employed. The dose-length product was 635.45 mGy-cm. COMPARISON: CT abdomen and pelvis 11/09/2022 FINDINGS: There are just portions of the lung bases demonstrate mild atelectasis. No pleural effusion . There is left atrial and left ventricular enlargement. There are coronary artery calcifications. No pericardial effusion. The liver and spleen are normal. There are changes of cholecystectomy. The chacon creas, adrenal glands, and right kidney are normal. There are 13 mm and 1 mm stones in left kidney. T here are no dilated loops of bowel. The appendix is normal. There are no pathologically enlarged lymp h nodes. There is no free intraperitoneal fluid. There is an electrode in right S3 neural foramen. Th ere is mild thoracic and lumbar spondylosis. S1 is a butterfly segment. IMPRESSION: 1. No etiology for the patient's symptoms. Reviewed, dictated and finalized at location A.
--- NOTE | ~2024-02-23 | XR_ITS ---
Portable chest x-ray Comparison: 02/28/2024 Clinical History: Tube placement Findings: Endotracheal tube and NG tube are in satisfactory positions. Lungs are clear, without foca l consolidation or pleural effusion. Cardiomediastinal silhouette is stable. Bones and soft tissues are unremarkable. Impression: Clear lungs. Support tubes, as above. Reviewed, dictated and finalized at location . Impression: Clear lungs. Support tubes, as above.
--- NOTE | ~2024-02-23 | XR_ITS ---
EXAMINATION: XR abdomen gastric tube insert DATE: 02/25/2024 21:50 INDICATION: Nasogastric tube placement TECHNIQUE: A supine view of the abdomen and lower chest was obtained for evaluation of feeding tube placement. COMPARISON: None. FINDINGS: Nasogastric tube tip in proximal side port in the body the stomach. No dilated loops of gas-filled elva wel in the visualized abdomen. Increased interstitial pattern throughout the visualized lungs consist ent with mild pulmonary edema. IMPRESSION: 1. Nasogastric tube in stomach. 2. Mild pulmonary edema. Reviewed, dictated and finalized at location A.
--- NOTE | ~2024-02-23 | XR_ITS ---
EXAMINATION: XR chest 1V portable DATE: 02/23/2024 23:18 INDICATION: Altered mental status. TECHNIQUE: A single frontal view of the chest was obtained. COMPARISON: Chest 2 views 11/08/2022 FINDINGS: There is no pneumonia, pleural effusion, or pneumothorax. The heart size is normal. IMPRESSION: 1. No acute cardiopulmonary disease. Reviewed, dictated and finalized at location A.
--- NOTE | ~2024-02-23 | CT_ITS ---
EXAMINATION: CT brain wo con DATE: 02/23/2024 23:48 INDICATION: Altered mental status. TECHNIQUE: Computed tomography (CT) of the head was performed without intravenous contrast. The mA wa s adjusted according to patient size. Iterative reconstruction technique was employed. The dose-lengt h product was 529.67 mGy-cm. COMPARISON: Head CT 11/04/2022 FINDINGS: There is an old infarct involving the left frontal and parietal lobes, left insula, left ba mily ganglia, and left thalamus. There are scattered areas of low attenuation in the cerebral white ma tter. There is no intracranial hemorrhage, acute infarction, or abnormal intracranial mass lesion. Th ere is ex vacuo dilatation of left lateral ventricle. The orbits are normal. There is mild mucosal th ickening in the ethmoid sinuses. There is a trace right mastoid effusion. IMPRESSION: 1. 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 2. Stable extensive nonspecific cerebral white matter disease, which likely represents chronic small vessel ischemic disease. Reviewed, dictated and finalized at location A. IMPRESSION: 1. Large old infarct in the expected distribution of left middle cerebral arter y. 2. Stable extensive nonspecific cerebral white matter disease, which likely rep resents chronic small vessel ischemic disease.
--- NOTE | ~2024-02-23 | XR_ITS ---
Portable chest x-ray Comparison: 02/29/2024 Clinical History: Respiratory failure Findings: There is focal hazy opacity left lung base. Right lung clear. Cardiomediastinal silhouett e is stable. Bones and soft tissues are unremarkable. Impression: Focal opacity left lung base, which could reflect focal pneumonia or possibly atelectatic change. Con tinued follow-up advised. Reviewed, dictated and finalized at location M. Impression: Focal opacity left lung base, which could reflect focal pneumonia or possibly a telectatic change. Continued follow-up advised.
--- NOTE | ~2024-02-23 | US_ITS ---
EXAMINATION: US renal BI DATE: 02/28/2024 10:16 INDICATION: Acute kidney injury. TECHNIQUE: Multiple ultrasound grayscale images of the kidneys were obtained. COMPARISON: CT dated 02/23/2024 FINDINGS: The right kidney measures 8.0 x 3.6 x 4.3 cm. The left kidney measures 11.3 x 4.7 x 4.9 cm. The kidne ys demonstrate normal echogenicity. 7 mm and 5 mm echogenic and shadowing stones in the left kidney. There is no hydronephrosis in either kidney. The bladder is decompressed with a Hayes catheter in krissy ce which limits evaluation. IMPRESSION: 1. A couple nonobstructing left renal stones. No hydronephrosis in either kidney. Reviewed, dictated and finalized at location A. IMPRESSION: 1. A couple nonobstructing left renal stones. No hydronephrosis in either kidn ey.
--- NOTE | ~2024-02-23 | XR_ITS ---
EXAMINATION: XR chest 1V portable DATE: 02/25/2024 20:35 INDICATION: Aspiration TECHNIQUE: frontal view of the chest was obtained. COMPARISON: Chest radiograph dated 02/23/2024 FINDINGS: Groundglass opacity and diffuse increased interstitial pattern throughout both lungs with basilar pre dominance along with a few peripheral Amparo B-lines consistent with mild pulmonary edema. No pleural effusion or pneumothorax. Heart size within normal limits conifer AP technique. Electronic device pr ojects over the central chest. Mild thoracic dextrocurvature with mild spondylosis. IMPRESSION: 1. Mild pulmonary edema. Reviewed, dictated and finalized at location A. IMPRESSION: 1. Mild pulmonary edema.
[2024-02-23 22:06] VITALS: BP 223/137; PULSE 100; RESP 20; TEMP 37; O2SAT 97
--- NOTE | 2024-02-23 22:13 | ECG_ITS ---
Test Date: 2024-02-23 22:27:09 Measurements Intervals [place] Rate: 94 P: 59 NH: 136 QRS: -19 QRSD: 105 T: 125 QT: 393 QTc: 492 Interpretive Statements SINUS RHYTHM WITH OCCASIONAL SUPRAVENTRICULAR PREMATURE COMPLEXES POSSIBLE LEFT ATRIAL ENLARGEMENT [-0.1mV P WAVE IN V1/V2] LEFT VENTRICULAR HYPERTROPHY AND ST-T CHANGE [VOLTAGE CRITERIA PLUS ST/T ABNORMALITY] No previous ECG available for comparison Electronically Signed On 02-25-2024 14:17:39 CDT by Shree Olmos M.D.
[2024-02-23 22:49] LABS: Basophils Percent Auto 0.3 % (0.2-1.2); Hematocrit 45.6 % (37.0-47.0); Hemoglobin 15.4 g/dL (12.0-15.0); Immature Granulocyte Absolute 0.06 K/mm3 (0.00-0.031); Immature Granulocyte Percent A 0.5 % (0-0.5); Lymphocytes Absolute Auto 3.42 K/mm3 (0.9-3.2); Lymphocytes Percent Auto 26.9 % (18.3-44.2); Mean Corpuscular HGB Conc 33.8 g/dl (32-36); Mean Corpuscular Hemoglobin 28.8 pg (26-34); Mean Corpuscular Volume 85.2 fl (80-100); Mean Platelet Volume 10.8 fl (7.4-10.4); Monocytes Absolute Auto 0.8 K/mm3 (0.1-0.6); Monocytes Percent Auto 6.3 % (2.6-8.5); Neutrophils Absolute Auto 8.4 K/mm3 (1.3-6.7); Platelet Count Result 242 k/mm3 (150-375); Red Blood Count 5.35 M/mm3 (4.2-5.4); Red Cell Distribution Width 13.3 % (11.5-14.5); White Blood Count 12.7 K/mm3 (4.5-10.0)
[2024-02-23] MEDS: SODIUM CHLORIDE 0.9% IV 1,000 ML 999 ML IV CONT (23:03)
[2024-02-23] MEDS: ONDANSETRON INJ 4 MG/2 ML VIAL IV PUSH (23:04)
[2024-02-23 23:09] LABS: Alanine Aminotransferase 14 U/L (6-35); Albumin Level 4.8 g/dL (3.5-5.1); Alkaline Phosphatase 115 U/L (38-126); Anion Gap 15 mmol/L (4-12); Aspartate Amino Transferase 29 U/L (14-36); Bilirubin,Total 0.8 mg/dL (0.2-1.3); Blood Urea Nitrogen 39 mg/dL (7-17); Calcium 10.1 mg/dL (8.4-10.2); Carbon Dioxide 29 mmol/L (22-30); Chloride 101 mmol/L (98-107); Estimated CRCL calculation 28 ml/min; Estimated Glomerular Filt Rate 29; Glucose 247 mg/dL (65-110); Lipase 29 U/L (23-300); Potassium 3.2 mmol/L (3.4-5.0); Sodium 145 mmol/L (137-145)
--- NOTE | 2024-02-23 23:11 | PC.NURSE ---
while doing focused assessment on patient, noted that they had bugs crawling on them and out of purse. patient was taken to private room where RN's removed clothing and put all belongings in a red sealed bag. replaced linens and provided patient with fresh gown and depends. also noted that patient had dried stool in perineal area, LLE, and soles of bilateral feet. cleaned stool off patient with soap and water. when asking patient if anyone takes care of them they state, no . when asking patient if they feel safe at home they states, no . when asking details patient would not elaborate. bug bites were noted to lower back and on all extremities. examined patients hair and did not note and any presence of lice/nits or bug bites. taxation accountant, Jazmyn and [employer] notified and at bedside.
--- NOTE | 2024-02-23 23:22 | PC.NURSE ---
care and report given to MARIA G Shepard. all questions answered.
[2024-02-23 23:38] LABS: Troponin I 0.107 ng/mL (0.000-0.034)
[2024-02-24] VITALS (20 sets, daily range): BP systolic 131–197; BP diastolic 63–108; PULSE 65–84; RESP 14–18; TEMP 36.4–36.5; O2SAT 96–100; BMI 22.4
--- NOTE | 2024-02-24 00:30 | ECG_ITS ---
Test Date: 2024-02-24 00:40:58 Measurements Intervals [place] Rate: 80 P: 65 [place]: 146 QRS: -11 QRSD: 105 T: 148 QT: 404 QTc: 469 Interpretive Statements SINUS RHYTHM POSSIBLE LEFT ATRIAL ENLARGEMENT [-0.1mV P-WAVE IN V1/V2] CONSIDER PREVIOUS INFERIOR INFARCTION T-WAVE ABNORMALITY, ANTERIOR ISCHEMIA ABNORMAL ECG No previous ECG available for comparison Electronically Signed On 02-24-2024 07:37:53 CDT by Tee Rdz M.D.
--- NOTE | 2024-02-24 00:32 | ED.ABDPAIN ---
HPI - Abdominal Pain General Chief Complaint: Abdominal Pain Stated Complaint: abd pain, HAYNES, n/v Time Seen by Provider: 02/23/24 22:29 History of Present Illness HPI narrative: Patient is a 64-year-old female who presents to the emergency department this evening complaining of nausea, vomiting, and abdominal pain. Patient also states that she feels generally unwell and is complaining of a headache. Patient was noted to be hypertensive with a blood pressure of 200/100 mmHg per EMS report. Upon arrival to the emergency department, patient is dry heaving and noted to have bedbugs in all of her belongings. She denies any chest pain or shortness of breath. No additional symptoms or concerns at this time. Related Data Home Medications Medication Instructions Recorded Confirmed amlodipine 10 mg tablet 10 mg DAILY 04/26/21 11/09/22 clopidogrel 75 mg tablet 75 mg DAILY 11/15/21 11/09/22 linagliptin 5 mg tablet (Tradjenta) 5 mg DAILY 11/15/21 11/09/22 losartan 100 mg tablet 100 mg DAILY 11/15/21 11/09/22 omeprazole 40 mg capsule,delayed 40 mg DAILY 11/15/21 11/09/22 release albuterol sulfate 90 mcg/actuation 2 puff inhalation PRN PRN 11/09/22 11/09/22 aerosol inhaler Shortness Of Breath clonidine HCl 0.2 mg tablet 0.2 mg BID 11/09/22 11/09/22 hydralazine 25 mg tablet 25 mg TID 11/09/22 11/09/22 Allergies Allergy/AdvReac Type Severity Reaction Status Date / Time insulin glargine Allergy Severe Swelling Verified 11/04/22 16:57 amoxicillin Allergy Unknown Unknown Verified 11/04/22 16:57 cephalexin Allergy Unknown Unknown Verified 11/04/22 16:57 doxycycline Allergy Unknown Itching Verified 11/04/22 16:57 latex Allergy Unknown Unknown Verified 11/04/22 16:57 Penicillins Allergy Unknown Unknown Verified 11/04/22 16:57 sulfamethoxazole Allergy Unknown Swelling Verified 11/04/22 16:57 sumatriptan Allergy Unknown Unknown Verified 11/04/22 16:57 trazodone Allergy Unknown Swelling Verified 11/04/22 16:57 trimethoprim Allergy Unknown Swelling Verified 11/04/22 16:57 clindamycin Allergy Unknown Verified 11/04/22 16:57 Review of Systems Review of Systems: All systems are reviewed and are negative unless stated otherwise in the HPI. [facility] Past Medical History Medical History History of CVA (cerebrovascular accident) History of diabetes mellitus HTN (hypertension) Surgical History Surgical History No pertinent past surgical history Social History Social History Smoking status: Current every day smoker Alcohol intake: never Substance use: unknown Spiritual care concerns: No Exam Narrative: General: Alert, awake, afebrile, in no acute distress. HEENT: PERRL, no rhinorrhea, no post nasal drip, oropharynx clear. Cardiovascular: Regular rate and rhythm, no murmurs, rubs or gallops, no peripheral edema. Respiratory: Clear to auscultation bilaterally, no tachypnea, no wheezing, no rhonchi, no rubs, no respiratory distress. Abdomen: Soft, nontender, nondistended, no rebound, no guarding, no peritoneal signs. Musculoskeletal: No joint swelling or deformity, normal muscle tone. Skin: No rashes or petechia, no signs of infection. Neurological: Alert and oriented to person, place, and time, expressive aphasia which is her baseline from history of CVA. Follows all commands. Course Vital Signs Vital signs: Vital Signs Temperature 98.6 F 02/23/24 22:06 Pulse Rate 100 02/23/24 22:06 Respiratory Rate 20 02/23/24 22:06 Blood Pressure 223/137 H 02/23/24 22:06 Pulse Oximetry 97 02/23/24 22:06 Oxygen Delivery Room Air 02/23/24 22:06 Temperature 98.6 F 02/23/24 22:06 Pulse Rate 72 02/24/24 02:14 Respiratory Rate 14 02/24/24 02:14 Blood Pressure 171/87 H 02/24/24 02:14 Pulse Oximetry 100 02/24/24 02:14 Oxygen Delivery Room Air 02/23/24 22:06 MDM - Abdominal Pain MDM Narrative Medical decision making narrative: The patient was evaluated by myself in the emergency department. History is obtained from patient who is an independent historian and physical exam was performed. External medical records were reviewed at this time. IV was established and pertinent tests were ordered. Patient was administered 1 L IV fluid bolus with normal saline, 4 mg IV Zofran for nausea. EKG was obtained which revealed sinus rhythm at a rate of 94 beats per minute, no evidence of acute ischemia within limitation of baseline artifact. EKG was independently interpreted by me and is currently pending official cardiology read. Laboratory results obtained revealing an elevated troponin of 0.107. Patient does appear to have chronically elevated troponin which ranges anywhere from 0.043 to 0.060 per chart review. Urinalysis pending. Patient was administered 40 mEq of oral potassium for a potassium of 3.2. She was also administered 20 mg of IV labetalol for a blood pressure of 197/108 mmHg. Repeat blood pressure currently 170/102 mmHg. Patient was also administered a 2 L IV fluid bolus with normal saline. Imaging studies obtained included CXR which was independently interpreted by me revealing no acute cardiopulmonary process, which is pending final radiology interpretation. Differential diagnosis considerations include dehydration, acute kidney injury, gastroenteritis, pancreatitis, cholecystitis and appendicitis. Comorbidities impacting this visit include history of hypertension, CVA and diabetes mellitus. I have evaluated and discussed social determinants of health with the patient that could potentially impact subsequent diagnosis and treatment plans. I did speak with the patient's [id number] over the phone, Cece Smith at 0130 who confirmed that the patient's deficit from her previous stroke is speech disturbances/expressive aphasia. Patient understands everything but has a hard time finding the right words. Cece also informed me that patient did suffer some mild right-sided weakness and ambulates at home using a cane. She confirmed that patient's speech disturbances is not kneel and is at her baseline. On repeat assessment of the patient, reevaluation revealed that the patient is doing well and is in no acute distress. Patient symptoms have improved since she arrived to our emergency department. Repeat vital signs were all reviewed and noted to be stable. Differential diagnosis and treatment plan were discussed with the patient at bedside. Patient agrees with discussion and after shared medical decision making agrees with admission. All questions were answered to the patient's satisfaction. Patient will be admitted to our IMU under the care of Dr. Pacheco case was discussed with her over the phone at 0200 and she accepted admission. The patient remains stable and ready for admission. Lab Data 02/23/24 22:44 02/23/24 22:44 Labs: Lab Results 02/23/24 02/24/24 02/24/24 Range/Units 22:44 00:48 01:24 WBC 12.7 H (4.5-10.0) K/mm3 RBC 5.35 (4.2-5.4) M/mm3 Hgb 15.4 H (12.0-15.0) g/dL Hct 45.6 (37.0-47.0) % MCV 85.2 (80-100) fl MCH 28.8 (26-34) pg MCHC 33.8 (32-36) g/dl RDW 13.3 (11.5-14.5) % Plt Count 242 (150-375) k/mm3 MPV 10.8 H (7.4-10.4) fl Immature Gran % (Auto) 0.5 (0-0.5) % Neut % (Auto) 66.0 (45.5-73.1) % Lymph % (Auto) 26.9 (18.3-44.2) % [place] % (Auto) 6.3 (2.6-8.5) % Eos % (Auto) 0.0 (0-4.4) % Baso % (Auto) 0.3 (0.2-1.2) % Lymph # (Auto) 3.42 H (0.9-3.2) K/mm3 [place] # (Auto) 0.8 H (0.1-0.6) K/mm3 Eos # (Auto) 0.0 (0-0.3) K/mm3 Baso # (Auto) 0.0 (0.0-0.1) K/mm3 Abs Immat Gran (auto) 0.06 H (0.00-0.031) K/mm3 Absolute Neuts (auto) 8.4 H (1.3-6.7) K/mm3 Absolute Nucleated RBC 0.000 (0.0-0.012) K/mm3 Nucleated RBC % 0.0 (0.0-0.2) % Sodium 145 (137-145) mmol/L Potassium 3.2 L (3.4-5.0) mmol/L Chloride 101 (98-107) mmol/L Carbon Dioxide 29 (22-30) mmol/L Anion Gap 15 H (4-12) mmol/L BUN 39 H D (7-17) mg/dL Creatinine 1.80 H (0.7-1.0) mg/dL Estim Creat Clear Calc 28 ml/min Estimated GFR 29 L (59 - ) Glucose 247 H (65-110) mg/dL POC Capillary Glucose 159 H (65-105) mg/dl Calcium 10.1 (8.4-10.2) mg/dL Total Bilirubin 0.8 (0.2-1.3) mg/dL AST 29 (14-36) U/L ALT 14 (6-35) U/L Alkaline Phosphatase 115 (38-126) U/L Troponin I 0.107 H* 0.140 H* D (0.000-0.034) ng/mL Total Protein 9.0 H (6.3-8.2) g/dL Albumin 4.8 (3.5-5.1) g/dL Lipase 29 (23-300) U/L Urine Color (Yellow) Urine Appearance (Clear) Urine pH (5.0-9.0) Ur Specific Blunt (1.001-1.035) Urine Protein (Negative) mg/dL Urine Glucose (UA) (Negative) mg/dL Urine Ketones (Negative) mg/dL Ur Blood (Man) (Negative) Urine Nitrate (Negative) Urine Bilirubin (Negative) Urine Urobilinogen (<2.0) mg/dL Leukocyte Esterase Rfl (Negative) CALVIN/UL Urine RBC (0-2) /hpf Urine WBC (0-3) /hpf Ur Squamous Epith Cells (Few) /hpf Urine Bacteria /hpf Urine Casts 02/24/24 Range/Units 01:53 WBC (4.5-10.0) K/mm3 RBC (4.2-5.4) M/mm3 Hgb (12.0-15.0) g/dL Hct (37.0-47.0) % MCV (80-100) fl MCH (26-34) pg MCHC (32-36) g/dl RDW (11.5-14.5) % Plt Count (150-375) k/mm3 MPV (7.4-10.4) fl Immature Gran % (Auto) (0-0.5) % Neut % (Auto) (45.5-73.1) % Lymph % (Auto) (18.3-44.2) % [place] % (Auto) (2.6-8.5) % Eos % (Auto) (0-4.4) % Baso % (Auto) (0.2-1.2) % Lymph # (Auto) (0.9-3.2) K/mm3 [place] # (Auto) (0.1-0.6) K/mm3 Eos # (Auto) (0-0.3) K/mm3 Baso # (Auto) (0.0-0.1) K/mm3 Abs Immat Gran (auto) (0.00-0.031) K/mm3 Absolute Neuts (auto) (1.3-6.7) K/mm3 Absolute Nucleated RBC (0.0-0.012) K/mm3 Nucleated RBC % (0.0-0.2) % Sodium (137-145) mmol/L Potassium (3.4-5.0) mmol/L Chloride (98-107) mmol/L Carbon Dioxide (22-30) mmol/L Anion Gap (4-12) mmol/L BUN (7-17) mg/dL Creatinine (0.7-1.0) mg/dL Estim Creat Clear Calc ml/min Estimated GFR (59 - ) Glucose (65-110) mg/dL POC Capillary Glucose (65-105) mg/dl Calcium (8.4-10.2) mg/dL Total Bilirubin (0.2-1.3) mg/dL AST (14-36) U/L ALT (6-35) U/L Alkaline Phosphatase (38-126) U/L Troponin I (0.000-0.034) ng/mL Total Protein (6.3-8.2) g/dL Albumin (3.5-5.1) g/dL Lipase (23-300) U/L Urine Color Yellow (Yellow) Urine Appearance Clear (Clear) Urine pH 5.5 (5.0-9.0) Ur Specific [place] 1.018 (1.001-1.035) Urine Protein 3+ H (Negative) mg/dL Urine Glucose (UA) 3+ H (Negative) mg/dL Urine Ketones Trace H (Negative) mg/dL Ur Blood (Man) 1+ H (Negative) Urine Nitrate Negative (Negative) Urine Bilirubin Negative (Negative) Urine Urobilinogen 1.0 (<2.0) mg/dL Leukocyte Esterase Rfl Negative (Negative) CALVIN/UL Urine RBC 0-2 (0-2) /hpf Urine WBC 0-5 (0-3) /hpf Ur Squamous Epith Cells None seen (Few) /hpf Urine Bacteria None seen /hpf Urine Casts 0-2 Imaging Data Radiologist's impression: ITS Impressions Chest X-Ray 02/23/24 23:26 IMPRESSION: 1. No acute cardiopulmonary disease. Head CT 02/23/24 23:50 IMPRESSION: 1. 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 2. Stable extensive nonspecific cerebral white matter disease, which likely represents chronic small vessel ischemic disease. Abdomen/Pelvis CT 02/23/24 23:52 IMPRESSION: 1. No etiology for the patient's symptoms. Discharge Plan Discharge Clinical Impression: Elevated troponin, Acute kidney injury, Nausea & vomiting, Dehydration, Hypertensive emergency, Medically noncompliant Patient Disposition: Still a Patient Condition: Improved Instructions: Antibiotic Form Prescriptions: No Action amlodipine 10 mg tablet 10 mg DAILY clopidogrel 75 mg tablet 75 mg DAILY omeprazole 40 mg capsule,delayed release(DR/EC) 40 mg DAILY losartan 100 mg tablet 100 mg DAILY Tradjenta 5 mg tablet 5 mg DAILY albuterol sulfate 90 mcg/actuation HFA aerosol inhaler 2 puff INHALATION PRN PRN (Reason: Shortness Of Breath) clonidine HCl 0.2 mg tablet 0.2 mg BID hydralazine 25 mg tablet 25 mg TID Follow-up/Referrals: Cole Paris MD [Primary Care Provider] -
[2024-02-24] MEDS: SODIUM CHLORIDE 0.9% IV 1,000 ML 999 ML IV CONT (01:08)
[2024-02-24] MEDS: LABETALOL HCL INJ 100 MG/20 ML VIAL 20 MG IV PUSH (01:08)
[2024-02-24 01:29] LABS: Glucose Point of Care 159 mg/dl (65-105)
[2024-02-24 02:05] LABS: Add Urine Microscopic? YES; Appearance Urine Clear (Clear); Bacteria Urine None Seen /hpf; Bilirubin Urine Negative (Negative); Blood Urine 1+ (Negative); Color Urine Yellow (Yellow); Glucose Urine UA 3+ mg/dL (Negative); Ketones Urine Trace mg/dL (Negative); Leukocyte Esterase Ur Negative LEU/UL (Negative); Nitrate Urine Negative (Negative); Non Pathogenic Casts 0-2; Protein Urine 3+ mg/dL (Negative); RBC Urine 0-2 /hpf (0-2); Specific Grav Ur 1.018 (1.001-1.035); Squamous Epithelial Cell Urine None Seen /hpf (Few); WBC Urine 0-5 /hpf (0-3); pH Urine 5.5 (5.0-9.0)
[2024-02-24] MEDS: POTASSIUM CHLORIDE 20 MEQ PACKET (FOR LIQUID) 40 MEQ PO (02:14)
--- NOTE | 2024-02-24 04:26 | ECG_ITS ---
Test Date: 2024-02-24 04:28:56 Measurements Intervals [place] Rate: 71 P: 62 [place]: 150 QRS: -23 QRSD: 92 T: 123 QT: 434 QTc: 472 Interpretive Statements SINUS RHYTHM WITH SINUS ARRHYTHMIA BORDERLINE LEFT AXIS DEVIATION [QRS AXIS < -20] MODERATE T-WAVE ABNORMALITY, CONSIDER LATERAL ISCHEMIA [-0.1+ mV T-WAVE IN I/aVL/V5/V6] Compared to ECG 02/24/2024 00:40:58 no change Electronically Signed On 02-25-2024 14:18:03 CDT by Shree Olmos M.D.
[2024-02-24] MEDS: LACTATED RINGERS 1,000 ML 100 ML IV CONT ×2 (04:42→17:24)
[2024-02-24 05:17] LABS: Cholesterol 173 mg/dL (0-200); HDL Direct 36 mg/dL; Triglycerides 141 mg/dL (<150)
[2024-02-24 05:27] LABS: LDL Cholesterol Direct 94 mg/dL
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
[2024-02-24 05:38] LABS: Troponin I 0.184 ng/mL (0.000-0.034)
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
[2024-02-24 08:13] LABS: Anion Gap 12 mmol/L (4-12); Blood Urea Nitrogen 36 mg/dL (7-17); Calcium 8.7 mg/dL (8.4-10.2); Carbon Dioxide 24 mmol/L (22-30); Chloride 107 mmol/L (98-107); Estimated CRCL calculation 33 ml/min; Estimated Glomerular Filt Rate 35; Glucose 114 mg/dL (65-110); Potassium 3.7 mmol/L (3.4-5.0); Sodium 143 mmol/L (137-145)
[2024-02-24] MEDS: ASPIRIN 81 MG CHEWABLE TABLET PO (09:01)
[2024-02-24] MEDS: carvediloL 12.5 MG TABLET PO ×2 (09:01→20:51)
[2024-02-24] MEDS: SITagliptin PHOSPHATE 100 MG TABLET PO (09:01)
[2024-02-24] MEDS: PANTOPRAZOLE 40 MG TABLET PO ×2 (09:01→20:52)
[2024-02-24] MEDS: ENOXAPARIN 30 MG/0.3 ML SYRINGE SUB-Q (09:02)
[2024-02-24 10:06] LABS: Hemoglobin A1C 7.3 % (<5.7)
--- NOTE | 2024-02-24 12:17 | PC.NURSE ---
Attempted to update patient's sister, Cece, via telephone without success.
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
[2024-02-24 15:00] LABS: Glucose Point of Care 132 mg/dl (65-105)
[2024-02-24 16:15] LABS: Glucose Point of Care 117 mg/dl (65-105)
[2024-02-24 20:15] LABS: Glucose Point of Care 132 mg/dl (65-105)
[2024-02-25] VITALS (23 sets, daily range): BP systolic 115–164; BP diastolic 54–89; PULSE 63–116; RESP 16–35; TEMP 36.5–36.7; O2SAT 93–100
[2024-02-25] MEDS: LACTATED RINGERS 1,000 ML 100 ML IV CONT (03:34)
[2024-02-25] MEDS: ENOXAPARIN 30 MG/0.3 ML SYRINGE SUB-Q (08:34)
[2024-02-25] MEDS: carvediloL 12.5 MG TABLET PO (08:35)
[2024-02-25] MEDS: PANTOPRAZOLE 40 MG TABLET PO (08:35)
[2024-02-25] MEDS: ASPIRIN 81 MG CHEWABLE TABLET PO (08:36)
--- NOTE | 2024-02-25 08:45 | ECG_ITS ---
Test Date: 2024-02-25 09:48:05 Measurements Intervals [place] Rate: 71 P: 51 [place]: 143 QRS: -19 QRSD: 94 T: 120 QT: 409 QTc: 446 Interpretive Statements SINUS RHYTHM WITH SINUS ARRHYTHMIA LEFT VENTRICULAR HYPERTROPHY AND ST-T CHANGE [VOLTAGE CRITERIA PLUS ST/T ABNORMALITY] Compared to ECG 02/24/2024 04:28:56 Left ventricular hypertrophy now present ST (T wave) deviation now present T-wave abnormality no longer present Possible ischemia no longer present Electronically Signed On 02-25-2024 14:45:42 CDT by Shree Olmos M.D.
[2024-02-25] MEDS: SITagliptin PHOSPHATE 100 MG TABLET PO (08:48)
[2024-02-25 08:59] LABS: Glucose Point of Care 125 mg/dl (65-105)
[2024-02-25 09:59] LABS: Basophils Absolute Auto 0.1 K/mm3 (0.0-0.1); Basophils Percent Auto 0.6 % (0.2-1.2); Eosinophils Absolute Auto 0.2 K/mm3 (0-0.3); Eosinophils Percent Auto 1.7 % (0-4.4); Hemoglobin 12.6 g/dL (12.0-15.0); Immature Granulocyte Absolute 0.03 K/mm3 (0.00-0.031); Immature Granulocyte Percent A 0.3 % (0-0.5); Lymphocytes Absolute Auto 3.21 K/mm3 (0.9-3.2); Mean Corpuscular HGB Conc 33.2 g/dl (32-36); Mean Corpuscular Hemoglobin 28.8 pg (26-34); Mean Platelet Volume 11.4 fl (7.4-10.4); Monocytes Absolute Auto 0.7 K/mm3 (0.1-0.6); Monocytes Percent Auto 7.5 % (2.6-8.5); Neutrophils Absolute Auto 5.3 K/mm3 (1.3-6.7); Neutrophils Percent Auto 55.9 % (45.5-73.1); Platelet Count Result 177 k/mm3 (150-375); Red Blood Count 4.37 M/mm3 (4.2-5.4); Red Cell Distribution Width 13.4 % (11.5-14.5); White Blood Count 9.4 K/mm3 (4.5-10.0)
[2024-02-25 10:11] LABS: Alanine Aminotransferase 12 U/L (6-35); Albumin Level 3.5 g/dL (3.5-5.1); Alkaline Phosphatase 76 U/L (38-126); Anion Gap 8 mmol/L (4-12); Aspartate Amino Transferase 22 U/L (14-36); Bilirubin,Total 0.2 mg/dL (0.2-1.3); Blood Urea Nitrogen 31 mg/dL (7-17); Calcium 8.8 mg/dL (8.4-10.2); Carbon Dioxide 29 mmol/L (22-30); Chloride 106 mmol/L (98-107); Estimated CRCL calculation 31 ml/min; Estimated Glomerular Filt Rate 33; Glucose 124 mg/dL (65-110); Potassium 3.8 mmol/L (3.4-5.0); Sodium 143 mmol/L (137-145)
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
[2024-02-25 12:06] LABS: Glucose Point of Care 168 mg/dl (65-105)
[2024-02-25 16:08] LABS: Glucose Point of Care 115 mg/dl (65-105)
--- NOTE | 2024-02-25 20:23 | ECG_ITS ---
Test Date: 2024-02-25 20:35:58 Measurements Intervals [place] Rate: 126 P: 76 [place]: 159 QRS: -29 QRSD: 94 T: 51 QT: 290 QTc: 420 Interpretive Statements SINUS TACHYCARDIA DELAYED PRECORDIAL R/S TRANSITION LEFT VENTRICULAR HYPERTROPHY WITH ST-T CHANGE CONSIDER INFERIOR INFARCT, AGE INDETERMINATE BASELINE ARTIFACT- I, II, III, AVR, AVL, AVF, V1, V4-V6 ABNORMAL ECG Compared to ECG 02/25/2024 09:48:05 HEART RATE HAS INCREASED Electronically Signed On 02-27-2024 09:38:24 CDT by Arsenio Escalona D.O.
[2024-02-25] MEDS: LORazepam INJ (*CRX) 2 MG/ML VIAL 1 MG IV PUSH (20:25)
[2024-02-25] MEDS: LORazepam INJ (*CRX) 2 MG/ML VIAL 1 MG IM (20:35)
[2024-02-25] MEDS: ETOMIDATE 20 MG/10 ML AMPUL 100 MG IV PUSH (20:43)
[2024-02-25] MEDS: SUCCINYLCHOLINE CHLORIDE 20 MG/ML 10 ML VIAL IV PUSH (20:44)
[2024-02-25] MEDS: RAPID SEQUENCE INTUBATION KIT 1 EACH (20:44)
[2024-02-25 21:23] LABS: Glucose Point of Care 147 mg/dl (65-105)
[2024-02-25] MEDS: PROPOFOL IV EMULSION 100 ML 2.06 MG IV CONT (21:26)
[2024-02-25] MEDS: MIDAZOLAM HCL (*CRX) 2 MG/2 ML VIAL 4 MG IV PUSH (21:39)
[2024-02-25] MEDS: PROPOFOL IV EMULSION 100 ML 10.28 MG IV CONT (21:58)
[2024-02-25] MEDS: FUROSEMIDE INJ 40 MG/4 ML VIAL IV PUSH (22:02)
[2024-02-25] MEDS: methylPREDNISolone SOD SUCC 125 MG VIAL 60 MG IV PUSH (22:05)
[2024-02-25] MEDS: LABETALOL HCL INJ 100 MG/20 ML VIAL 10 MG IV PUSH (22:18)
[2024-02-25 22:23] LABS: Hematocrit 44.4 % (37.0-47.0); Hemoglobin 14.9 g/dL (12.0-15.0); Mean Corpuscular HGB Conc 33.6 g/dl (32-36); Mean Corpuscular Hemoglobin 28.8 pg (26-34); Mean Corpuscular Volume 85.9 fl (80-100); Mean Platelet Volume 11.3 fl (7.4-10.4); Platelet Count Result 177 k/mm3 (150-375); Red Blood Count 5.17 M/mm3 (4.2-5.4); Red Cell Distribution Width 13.5 % (11.5-14.5); White Blood Count 15.3 K/mm3 (4.5-10.0)
[2024-02-25] MEDS: cefTRIAXone 2 GM/NS 100 ML 2 GM/100 ML BAG IVPB (22:34)
[2024-02-25 22:41] LABS: Magnesium 1.8 mg/dL (1.6-2.3)
[2024-02-25 22:42] LABS: Triglycerides 245 mg/dL (<150)
[2024-02-25 22:44] LABS: Alanine Aminotransferase 31 U/L (6-35); Albumin Level 4.1 g/dL (3.5-5.1); Alkaline Phosphatase 95 U/L (38-126); Anion Gap 12 mmol/L (4-12); Aspartate Amino Transferase 67 U/L (14-36); Bilirubin,Total 0.8 mg/dL (0.2-1.3); Blood Urea Nitrogen 30 mg/dL (7-17); Calcium 8.4 mg/dL (8.4-10.2); Carbon Dioxide 24 mmol/L (22-30); Chloride 104 mmol/L (98-107); Estimated CRCL calculation 38 ml/min; Estimated Glomerular Filt Rate 42; Glucose 259 mg/dL (65-110); Lactic Acid Reflex 2.2 mmol/L (0.7-2.0); Potassium 3.9 mmol/L (3.4-5.0); Sodium 140 mmol/L (137-145)
[2024-02-25] MEDS: AZITHROMYCIN 500 MG/NS 250 ML 500 MG/250 ML BAG 250 MG IVPB (22:51)
[2024-02-25 23:00] LABS: Troponin I 0.166 ng/mL (0.000-0.034)
[2024-02-25 23:12] LABS: Bacteria Urine Rare /hpf; Hyaline Casts Urine Present /lpf; Need Manual Microscopic Reviewed; Non Pathogenic Casts >20; RBC Urine 21-50 /hpf (0-2); Squamous Epithelial Cell Urine None Seen /hpf (Few); WBC Urine >100 /hpf (0-3)
--- NOTE | 2024-02-25 23:12 | PC.NURSE ---
Addendum entered by Brooke Smith RN 02/26/24 00:00: *Succinylcholine was admin not Rocuronium. Addendum entered by Brooke Smith RN 02/25/24 23:37: *Etomidate not Succinylcholine was administered. Original Note: RN (self) was called to room by PCT. Prior to RN being called to room, PCT states patient was yelling/cussing and trying to get out of the bed to walk to the bathroom - patient is unable to get our of bed w/o asst and cannot walk w/o assistance. Patient was placed on the BSC then back to bed; when technical illustrator tried to lay patient down, patient sat back up and said she couldn't. They took vitals and then called RN as patient O2 sats were in the 70's. RN came to room and patient started coughing and was struggling to breathe. Pulse oxygen saturation was reading in the 50's at this point, patient was diaphoretic lips were blue. An BOX CAR LOADER was called at 2013 and the patient was placed on a Non-rebreather mask at 15L. Lungs were coarse and wet sounding, patient was tachypneic w/labored breathing. Patient was admin 1mg IV Ativan to try to relax her, but continued to thrash around the bed and IV site was then lost. A 1mg of Ativan was then also admin via IM in the left deltoid. Three attempts were made to obtain an IV site unsuccessfully. An IO was placed in the left lower leg below the knee at 2041. Succinylcholine at 2042 and Rocuronium was admin at 2043. Patient was intubated at 2044. Patient was transferred to ICU 8 at 2058. Report was given to Suzie CUMMINS. Patient's sister/POA was called t 2207 and updated on the situation. Verbal consent with Brooke Vital and Mel Darnell RNs was given by sister for central line if needed. Dr. Haynes was called by this RN at 2152 and updated.
[2024-02-25 23:21] LABS: Glucose Point of Care 264 mg/dl (65-105)
[2024-02-25 23:22] LABS: Alveolar/Arterial O2 Gradient 498.2 mmHg; Base Excess ABG -1.1 mEq/l (+/-2.0); Carboxyhemoglobin 0.5 % THb (0-2.0); Device VENTILATOR; Fractional Inspired Oxygen 90 %; HCO3 ABG 24.9 mEq/l (22.0-26.0); Methemoglobin ABG 0.1 %THb (0-1.5); Modified Allen's Test Pass; Oxygen Content ABG 19.1 %vol (16.0-22.0); Oxygen Saturation ABG 96.9 % (95.0-100.0); Oxyhemoglobin 96.4 % THb (90.0-100.0); PCO2 ABG 46.5 mmHg (35.0-45.0); PO2 ABG 95.8 mmHg (80.0-100.0); PO2 FiO2 Ratio Arterial Blood 1.06 %; Site Drawn RIGHT RADIAL; pH ABG 7.347 (7.350-7.450)
[2024-02-25 23:23] LABS: Arterial Blood Gas PEEP 8 cmH2O; Arterial Blood Gas Tidal Volume 400 ml; Arterial Blood Gas Vent Mode CMV; Arterial Blood Gas Ventilator rate 16 /MIN
[2024-02-25 23:29] LABS: Add Urine Microscopic? YES; Appearance Urine Clear (Clear); Color Urine Yellow (Yellow); Protein Urine 3+ mg/dL (Negative); Specific Grav Ur 1.025 (1.001-1.035); pH Urine 5.5 (5.0-9.0)
[2024-02-25 23:30] LABS: Bilirubin Urine Negative (Negative); Blood Urine 2+ (Negative); Glucose Urine UA 1+ mg/dL (Negative); Ketones Urine Negative (Negative); Leukocyte Esterase Ur Trace LEU/UL (Negative); Nitrate Urine Negative (Negative)
--- NOTE | 2024-02-25 23:35 | PC.NURSE ---
This patient, Adalgisa Tirado, was transferred to ICU 8 on 02/25/24 at 2059. Personal belongings sent with patient. Report given to Suzie Pinto RN. Appropriate documentation sent with patient.
--- NOTE | 2024-02-25 23:42 | PM.CCN ---
Critical Care Event Note Summary Code activated: Yes (Rapid response) Narrative: This case had a high probability of a clinically significant, sudden, or life threatening deterioration of this patient's condition which required my full and direct attention, intervention and personal management. I was called to this patient's bedside for rapid response at 2013 for patient developing respiratory distress, turning blue around the lips and appearing to have aspirated. The patient was apparently walking to the bathroom with staff, began agitated and gag. It was thought that she aspirated. Patient found to have oxygen saturations in the 50s to 70s, central cyanosis present. A patient was tachypneic, unable to speak in complete sentences and in obvious respiratory distress and diaphoresis. Labs are drawn, however patient with obvious distress so the decision to intubate was made. Patient was intubated x1 attempt with a 7.5 ET tube and moved to ICU. Patient's x-ray shows Amparo B lines with pulmonary edema. In addition she has an elevated WBC count that she did not previously have. She is started on antibiotics Rocephin and azithromycin, she is currently sedated and stable in ICU at this time with interval development of the treatment of a suspected aspiration PNA. Critical care time: 75 - 104 mins
--- NOTE | 2024-02-25 23:46 | WPDPROCEDUR ---
Procedures Intubation Intubation Date: 01/24/24 Intubation Time: 20:45 A pre-procedural Time-Out was completed immediately before starting the procedure and confirmed: Patient Identification, Site, Procedure, Patient Position and the Availability of Requisite Equipment: Yes Sedative: etomidate Mg given: 20 Laryngoscope: Braden ET tube size: 7.5 Tube secured depth (cm): 21 Tube secured location: lips Tube placement confirmation: visualized tube passing through cords, equal breath sounds bilaterally and confirmation by capnometry Patient tolerated procedure: well Intubation complications: none
[2024-02-26] VITALS (29 sets, daily range): BP systolic 106–189; BP diastolic 63–109; PULSE 69–98; RESP 16–35; TEMP 36.8–38; O2SAT 94–100
[2024-02-26] MEDS: FENTANYL 2,500MCG/NS250ML(*CRX 2,500 MCG/250 ML BAG IV CONT (00:59)
[2024-02-26] MEDS: MIDAZOLAM 100MG/NS 100ML(*CRX) 100 MG/100 ML BAG IV CONT (01:00)
[2024-02-26 01:21] LABS: Reflex Lactic Acid Yes or No Add Lactic
[2024-02-26 03:27] LABS: IFOB Positive Control Positive; Immunochemical Fecal Occult Bl Positive (N)
[2024-02-26 03:30] LABS: Hematocrit 42.3 % (37.0-47.0); Hemoglobin 14.1 g/dL (12.0-15.0); Mean Corpuscular HGB Conc 33.3 g/dl (32-36); Mean Platelet Volume 11.9 fl (7.4-10.4); Platelet Count Result 162 k/mm3 (150-375); Red Blood Count 4.86 M/mm3 (4.2-5.4); Red Cell Distribution Width 13.5 % (11.5-14.5); White Blood Count 16.8 K/mm3 (4.5-10.0)
[2024-02-26 03:40] LABS: Alanine Aminotransferase 30 U/L (6-35); Albumin Level 3.8 g/dL (3.5-5.1); Alkaline Phosphatase 96 U/L (38-126); Anion Gap 10 mmol/L (4-12); Aspartate Amino Transferase 41 U/L (14-36); Bilirubin,Total 0.4 mg/dL (0.2-1.3); Blood Urea Nitrogen 32 mg/dL (7-17); Calcium 8.6 mg/dL (8.4-10.2); Carbon Dioxide 25 mmol/L (22-30); Chloride 106 mmol/L (98-107); Estimated CRCL calculation 33 ml/min; Estimated Glomerular Filt Rate 35; Glucose 324 mg/dL (65-110); Potassium 3.4 mmol/L (3.4-5.0); Sodium 141 mmol/L (137-145)
--- NOTE | 2024-02-26 04:25 | PM.EVENT ---
Event Note Event Note Event Note: I am advised this evening that pt had a black appearing BM. She is on Lovenox. Occult blood ordered and it is positive for blood. Lovenox is discontinued and GI consulted. SCD's ordered for prophylaxis.
[2024-02-26 05:08] LABS: Glucose Point of Care 264 mg/dl (65-105)
--- NOTE | 2024-02-26 05:15 | PCRCNOTE ---
Window of time for administration has passed. See next scheduled administration.
[2024-02-26] MEDS: methylPREDNISolone SOD SUCC 125 MG VIAL 60 MG IV PUSH ×3 (05:20→20:27)
[2024-02-26] MEDS: INSULIN ASPART (*BKC) 100 UNITS/ML SUB-Q ×2 (05:20→11:49)
[2024-02-26 05:51] LABS: MRSA (PCR) NOT DETECTED (NOT DETECTE)
[2024-02-26 06:02] LABS: Alveolar/Arterial O2 Gradient 223.1 mmHg; Carboxyhemoglobin 0.3 % THb (0-2.0); Device VENTILATOR; Fractional Inspired Oxygen 50 %; HCO3 ABG 26.6 mEq/l (22.0-26.0); Methemoglobin ABG 0.1 %THb (0-1.5); Oxygen Content ABG 19.5 %vol (16.0-22.0); Oxygen Saturation ABG 95.8 % (95.0-100.0); Oxyhemoglobin 95.4 % THb (90.0-100.0); PCO2 ABG 46.1 mmHg (35.0-45.0); PO2 ABG 81.5 mmHg (80.0-100.0); PO2 FiO2 Ratio Arterial Blood 1.63 %; Reduced Hemoglobin 4.2 %THb (0-5.0); Site Drawn RIGHT BRACHIAL; Total Hemoglobin 14.5 g/dL (12.0-18.0); pH ABG 7.379 (7.350-7.450)
[2024-02-26 06:03] LABS: Arterial Blood Gas PEEP 8 cmH2O; Arterial Blood Gas Tidal Volume 400 ml; Arterial Blood Gas Vent Mode CMV; Arterial Blood Gas Ventilator rate 16 /MIN
[2024-02-26 07:29] LABS: Glucose Point of Care 269 mg/dl (65-105)
[2024-02-26] MEDS: IPRATROPIUM 0.5 MG/ALBUTEROL SULFATE 2.5 MG AMPUL.NEB 3 ML INHALATION ×3 (07:35→20:14)
--- NOTE | 2024-02-26 08:25 | PC.NURSE ---
Updated sister,Cece, on plan of care and patient condition.
[2024-02-26] MEDS: FUROSEMIDE INJ 40 MG/4 ML VIAL IV PUSH (08:39)
[2024-02-26] MEDS: MINERAL OIL/WHITE PETROLATUM OINTMENT 1 APPLIC EACH EYE ×2 (08:39→20:27)
[2024-02-26] MEDS: INSULIN GLARGINE (*BKC) 100 UNITS/ML 10 UNITS SUB-Q (08:40)
[2024-02-26] MEDS: PANTOPRAZOLE SODIUM IV 40 MG VIAL IV PUSH ×2 (08:40→20:26)
[2024-02-26] MEDS: POTASSIUM CHLORIDE 20 MEQ PACKET (FOR LIQUID) 40 MEQ FEED TUBE (08:43)
[2024-02-26] MEDS: NICOTINE (*PBKC) 21 MG PATCH 1 PATCH TRANSDERM (08:43)
[2024-02-26] MEDS: metroNIDAZOLE 500 MG/ISO 100ML 500 MG/100 ML BAG 100 MG IVPB ×3 (08:44→21:30)
[2024-02-26 08:51] LABS: Troponin I 0.193 ng/mL (0.000-0.034)
--- NOTE | 2024-02-26 09:54 | WPDGICN ---
Assessment and Plan Assessment and plan (1) Respiratory failure: Code(s): J96.90 - Respiratory failure, unspecified, unspecified whether with hypoxia or hypercapnia Status: Acute Assessment and Plan: intubated yesterday and now in icu (2) Occult blood positive stool: Code(s): R19.5 - Other fecal abnormalities Status: Acute Assessment and Plan: with normal h/h normal gastric secretion by ngt and no melena here no need of egd unless any changes this could be perianal (report of some urgency) will follow as needed (3) Uncontrolled diabetes mellitus: Qualifiers: Diabetes mellitus type: type 2 Glycemic state: with hyperglycemia Qualified Code(s): E11.65 - Type 2 diabetes mellitus with hyperglycemia Status: Acute (4) History of CVA (cerebrovascular accident): Code(s): Z86.73 - Personal history of transient ischemic attack (TIA), and cerebral infarction without residual deficits Status: Acute (5) HTN (hypertension): Code(s): I10 - Essential (primary) hypertension Status: Acute (6) Acute exacerbation of CHF (congestive heart failure): Qualifiers: Heart failure type: unspecified Qualified Code(s): I50.9 - Heart failure, unspecified Code(s): I50.9 - Heart failure, unspecified Status: Acute (7) Diarrhea: Code(s): R19.7 - Diarrhea, unspecified Status: Acute (8) Acute on chronic kidney failure: Code(s): N17.9 - Acute kidney failure, unspecified; N18.9 - Chronic kidney disease, unspecified Status: Acute GI Consult Note Consult date/time: 02/26/24 09:54 Reason for consult: occult blood stool HPI: Adalgisa Tirado is a 64 year old female with a past medical history of essential hypertension, kidney stones, type 2 diabetes mellitus and CVA with residual deficits with word finding and slowed speech as well as right-sided weakness who presented to the ER via EMS from home with vomiting and not feeling well, she was admitted 02/23 to the floor. History is obtained from records and her nurse. I had the change of the staff that was taking care in the floor and they reported she was having what sounds to be urgency with only small amount of brown stool at time, it was not even enough to send off specimen. Last night was found hypoxic and intubated then transferrred to ICU, also noted some dark stool, occult blood in stool was positive. NGT in place with only normal gastric secretion, no report of melena here in ICU and her hgb is normal. Review of Systems Review of Systems: ROS unobtainable: Yes unobtainable due to endotracheal tube and unobtainable due to mental status PMFSH Past Medical History Medical History (Updated 02/26/24 @ 10:00 by García Burnett MD) Acute on chronic kidney failure Diarrhea History of CVA (cerebrovascular accident) Right-sided weakness and expressive aphasia HTN (hypertension) Medically noncompliant Occult blood positive stool Respiratory failure Type 2 diabetes mellitus Surgical History Surgical History No pertinent past surgical history Family History Family History (Updated 02/24/24 @ 07:44 by Malorie Pacheco DO) Other Unknown family medical history Social History Social History (Updated 02/24/24 @ 07:45 by Malorie Pacheco DO) Social History: Code status: Full code Surrogate decision maker: Sister Smoking packs per day: 0.5 Smoking cigarettes per day: 10.0 Years smoked: 36 Smoking pack-years: 18.00 Smoking status: Current every day smoker Tobacco type: cigarettes Alcohol intake: never Substance use: unknown Do You Feel Safe in your Home?: No Lack of Transportation: No Lack of Food: Never True Current Housing: I Have Housing Concerned About Future Housing: Decline to Answer Difficulty Paying Gas/Electric Bills: Decline to Answer Difficulty Paying for Meds: Decline to Answer Currently Unemployed: Decline to Answer Education: Decline to Answer Difficulty w/ Childcare or Family Care: Decline to Answer Spiritual care concerns: No Meds Home Medications and Allergies Home Medications Medication Instructions Recorded Confirmed Type omeprazole 40 mg capsule,delayed 40 mg PO DAILY 11/15/21 02/24/24 History release aspirin 81 mg chewable tablet 81 mg PO DAILY 02/24/24 02/24/24 History empagliflozin 10 mg tablet 10 mg PO DAILY 02/24/24 02/24/24 History (Jardiance) sitagliptin phosphate 100 mg 100 mg PO DAILY 02/24/24 02/24/24 History tablet (Januvia) Allergies Allergy/AdvReac Type Severity Reaction Status Date / Time insulin glargine Allergy Severe Swelling Verified 11/04/22 16:57 amoxicillin Allergy Unknown Unknown Verified 11/04/22 16:57 cephalexin Allergy Unknown Unknown Verified 11/04/22 16:57 doxycycline Allergy Unknown Itching Verified 11/04/22 16:57 latex Allergy Unknown Unknown Verified 11/04/22 16:57 Penicillins Allergy Unknown Unknown Verified 11/04/22 16:57 sulfamethoxazole Allergy Unknown Swelling Verified 11/04/22 16:57 sumatriptan Allergy Unknown Unknown Verified 11/04/22 16:57 trazodone Allergy Unknown Swelling Verified 11/04/22 16:57 trimethoprim Allergy Unknown Swelling Verified 11/04/22 16:57 clindamycin Allergy Unknown Verified 11/04/22 16:57 Vital Signs Vital Signs - 24 hr 02/25/24 10:00 02/25/24 12:00 02/25/24 12:00 Temperature 98.0 F Pulse Rate 76 64 63 Respiratory Rate 20 Blood Pressure 153/70 H Pulse Oximetry 96 Oxygen Delivery Fraction of Inspired Oxygen 02/25/24 12:00 02/25/24 12:50 02/25/24 14:00 Temperature Pulse Rate 63 74 Respiratory Rate Blood Pressure Pulse Oximetry 96 Oxygen Delivery Room Air Room Air Fraction of Inspired Oxygen 02/25/24 16:00 02/25/24 16:00 02/25/24 16:00 Temperature 98.0 F Pulse Rate 80 81 81 Respiratory Rate 20 Blood Pressure 164/89 H Pulse Oximetry 98 Oxygen Delivery Room Air Fraction of Inspired Oxygen 02/25/24 18:00 02/25/24 21:26 02/25/24 21:58 Temperature Pulse Rate 81 116 H 106 H Respiratory Rate 33 H 35 H Blood Pressure Pulse Oximetry Oxygen Delivery Fraction of Inspired Oxygen 02/25/24 22:10 02/25/24 22:18 02/25/24 22:37 Temperature Pulse Rate 105 H 101 H 81 Respiratory Rate 35 H 30 H Blood Pressure Pulse Oximetry Oxygen Delivery Fraction of Inspired Oxygen 02/25/24 22:50 02/25/24 23:04 02/25/24 20:00 Temperature Pulse Rate 86 85 104 H Respiratory Rate 35 H 32 H Blood Pressure Pulse Oximetry Oxygen Delivery Fraction of Inspired Oxygen 02/26/24 00:00 02/26/24 00:00 02/26/24 00:59 Temperature 100.4 F H Pulse Rate 83 88 88 Respiratory Rate 32 H 33 H 32 H Blood Pressure 106/83 Pulse Oximetry 94 Oxygen Delivery Fraction of Inspired Oxygen 02/26/24 01:00 02/25/24 22:00 02/26/24 00:00 Temperature Pulse Rate 90 108 H 81 Respiratory Rate 35 H Blood Pressure Pulse Oximetry Oxygen Delivery Fraction of Inspired Oxygen 02/26/24 02:00 02/26/24 02:00 02/26/24 02:00 Temperature Pulse Rate 89 89 89 Respiratory Rate 18 18 Blood Pressure Pulse Oximetry Oxygen Delivery Fraction of Inspired Oxygen 02/26/24 00:00 02/25/24 20:45 02/25/24 23:15 Temperature Pulse Rate 89 110 H 86 Respiratory Rate 18 Blood Pressure Pulse Oximetry 94 96 97 Oxygen Delivery Mechanical Ventilation Mechanical Ventilation Mechanical Ventilation Fraction of Inspired Oxygen 70 100 70 02/26/24 04:00 02/26/24 04:25 02/26/24 04:10 Temperature 99.7 F H Pulse Rate 86 Respiratory Rate 20 Blood Pressure 189/109 H Pulse Oximetry 100 Oxygen Delivery Fraction of Inspired Oxygen 70 50 02/26/24 04:00 02/26/24 04:00 02/26/24 04:00 Temperature Pulse Rate 87 87 Respiratory Rate 18 Blood Pressure Pulse Oximetry 99 Oxygen Delivery Mechanical Ventilation Fraction of Inspired Oxygen 50 02/26/24 04:00 02/26/24 03:05 02/26/24 06:00 Temperature Pulse Rate 87 84 82 Respiratory Rate 18 Blood Pressure Pulse Oximetry 100 Oxygen Delivery Mechanical Ventilation Fraction of Inspired Oxygen 50 02/26/24 06:00 02/26/24 06:00 02/26/24 06:00 Temperature 98.2 F Pulse Rate 81 81 81 Respiratory Rate 19 19 19 Blood Pressure 165/95 H Pulse Oximetry 99 Oxygen Delivery Fraction of Inspired Oxygen 02/26/24 02:00 02/26/24 05:30 02/26/24 07:36 Temperature 99.7 F H Pulse Rate 89 81 74 Respiratory Rate 18 Blood Pressure 155/95 H Pulse Oximetry 100 98 97 Oxygen Delivery Mechanical Ventilation Mechanical Ventilation Fraction of Inspired Oxygen 50 40 02/26/24 07:36 02/26/24 07:43 02/26/24 08:00 Temperature 98.9 F Pulse Rate 79 98 Respiratory Rate 16 18 Blood Pressure 131/85 Pulse Oximetry 97 98 Oxygen Delivery Mechanical Ventilation Fraction of Inspired Oxygen 40 02/26/24 08:00 02/26/24 08:00 02/26/24 08:00 Temperature Pulse Rate 81 Respiratory Rate Blood Pressure Pulse Oximetry 97 Oxygen Delivery Mechanical Ventilation Fraction of Inspired Oxygen 40 40 02/26/24 08:00 02/26/24 08:00 Temperature Pulse Rate 80 80 Respiratory Rate 17 17 Blood Pressure Pulse Oximetry Oxygen Delivery Fraction of Inspired Oxygen Exam Const: Other: intubated and sedated HENMT: Face/Nose/Sinus: Normal nares present Other: ngt in place Eyes: Sclera: sclerae normal Neck: Neck: supple Resp: Auscultation: rales and no wheezes Cardio: Rate: regular rate GI: GI Palp: Yes Soft to palpation and No Tenderness to palpation present (GI) Auscultation: normal bowel sounds Urinary Catheter: Urinary Catheter: patent and draining Skin: General skin exam: no rashes or lesions noted Neuro: Other: sedated Extrem: General: normal to inspection Psych: Other: unable to assess Results Labs 02/26/24 03:19 02/26/24 03:20 Labs: Short CBC 02/25/24 02/25/24 02/26/24 Range/Units 09:46 22:15 03:19 WBC 9.4 15.3 H 16.8 H (4.5-10.0) K/mm3 Hgb 12.6 14.9 14.1 (12.0-15.0) g/dL Hct 38.0 44.4 42.3 (37.0-47.0) % Plt Count 177 177 162 (150-375) k/mm3 BMP 02/25/24 02/25/24 02/26/24 09:46 22:14 03:20 Sodium 143 140 141 Potassium 3.8 3.9 3.4 Chloride 106 104 106 Carbon Dioxide 29 24 25 BUN 31 H 30 H 32 H Creatinine 1.60 H 1.30 H 1.50 H Glucose 124 H 259 H 324 H Calcium 8.8 8.4 8.6 Cardiac Enzymes 02/25/24 02/26/24 Range/Units 22:14 08:06 Troponin I 0.166 H* 0.193 H* (0.000-0.034) ng/mL Liver Function 02/25/24 02/25/24 02/26/24 Range/Units 09:46 22:14 03:20 Total Bilirubin 0.2 0.8 0.4 (0.2-1.3) mg/dL AST 22 67 H 41 H (14-36) U/L ALT 12 31 30 (6-35) U/L Alkaline Phosphatase 76 95 96 (38-126) U/L Albumin 3.5 4.1 3.8 (3.5-5.1) g/dL Urine 02/25/24 Range/Units 21:55 Urine Color Yellow (Yellow) Urine Appearance Clear (Clear) Urine pH 5.5 (5.0-9.0) Ur Specific [place] 1.025 (1.001-1.035) Urine Protein 3+ H (Negative) mg/dL Urine Glucose (UA) 1+ H (Negative) mg/dL
[2024-02-26] MEDS: ENOXAPARIN 40 MG/0.4 ML SYRINGE SUB-Q (11:20)
--- NOTE | 2024-02-26 11:32 | P.CONIN_ITS ---
Assessment and Plan Assessment and plan (1) Respiratory failure: Qualifiers: Chronicity: acute Respiratory failure complication: hypoxia Qualified Code(s): J96.01 - Acute respiratory failure with hypoxia Code(s): J96.90 - Respiratory failure, unspecified, unspecified whether with hypoxia or hypercapnia Status: Acute Assessment and Plan: 02/24/2024: Patient initially presented with nausea, vomiting, hypertensive urgency -on the night of 02/25/2024, patient had significant dyspnea, hypoxia with O2 sats in the 50s to 70 with central cyanosis, she was in impending respiratory failure -02/25/2024: Intubated on the medical floor and transfer the ICU for further management -patient currently on CMV mode of ventilation, peep of 8, 50% FiO2 -chest x-ray and ABGs reviewed -will continue diuresis -sedated with fentanyl and Versed infusion, maintain RASS of 0 to -2, daily SBT and SAT (2) Pulmonary edema: Qualifiers: Chronicity: acute Qualified Code(s): J81.0 - Acute pulmonary edema Code(s): J81.1 - Chronic pulmonary edema Status: Acute Assessment and Plan: Pulmonary edema could be multifactorial likely related to hypertensive urgency, mitral regurg, CHF more pulmonary hypertension -continue diuresis (3) Pneumonia: Qualifiers: Pneumonia type: aspiration pneumonia Aspiration pneumonia type: due to gastric secretions Laterality: unspecified laterality Code(s): J18.9 - Pneumonia, unspecified organism Status: Acute Assessment and Plan: Patient did have nausea, vomiting prior to admission, he also has been having dry heaves when she was in the hospital, sudden acute onset respiratory failure, suspect aspiration versus pulmonary edema -continue ceftriaxone, azithromycin, added Flagyl -continue methylprednisolone for possible pneumonia (4) Acute exacerbation of CHF (congestive heart failure): Qualifiers: Heart failure type: unspecified Qualified Code(s): I50.9 - Heart failu re, unspecified Code(s): I50.9 - Heart failure, unspecified Status: Acute Assessment and Plan: Patient with hypertensive urgency, pulmonary edema, hypoxemia, requiring intubation -on Jardiance at home -continue diuresis -will check echocardiogram Echocardiogram 11/10/2022: Summary 1. Complete two-dimensional, color flow and Doppler transthoracic echocardiogram is performed. 2. Left ventricular chamber dimension is normal. 3. Left ventricular systolic function is normal, estimated at 55-60%. 4. There is severely increased left ventricular wall thickness. 5. The left ventricular diastolic function is grade II diastolic dysfunction. 6. Left atrial chamber dimension is mildly enlarged. 7. There is moderate mitral valve regurgitation. 8. The mitral valve has thickened leaflets. 9. Mild pulmonary hypertension, estimated pulmonary arterial systolic pressure is 44 mmHg (5) Acute kidney injury: Code(s): N17.9 - Acute kidney failure, unspecified Status: Acute Assessment and Plan: Acute on chronic kidney disease, could be related congestive changes -continue diuresis -monitor urine output, renal function electrolytes (6) History of diabetes mellitus: Code(s): Z86.39 - Personal history of other endocrine, nutritional and metabolic disease Status: Acute Assessment and Plan: Continue Accu-Cheks and sliding scale insulin, added Lantus -hemoglobin A1c was 7.3 this admission (7) Hypertensive urgency: Code(s): I16.0 - Hypertensive urgency Status: Acute Assessment and Plan: Hypertensive urgency, blood pressures have improved -will continue to monitor (8) Nausea & vomiting: Qualifiers: Vomiting type: unspecified Qualified Code(s): R11.2 - Nausea with vomiting, unspecified Code(s): R11.2 - Nausea with vomiting, unspecified Status: Acute Assessment and Plan: No episodes of nausea or vomiting vomiting while she was in the hospital but reported dry heaves and nausea on 02/25/2024 (9) Mitral regurgitation: Code(s): I34.0 - Nonrheumatic mitral (valve) insufficiency Status: Acute Assessment and Plan: History of moderate mitral valve regurgitation on echocardiogram done in October of 2002 -will repeat echocardiogram to evaluate for valvular dysfunction Plan DVT prophylaxis: Lovenox Stress ulcer prophylaxis: Protonix Nutrition: Will start tube feeds Code Status: Full code Critical Care Time Spent: 48 minutes Due to a high probability of clinically significant, life threatening deterioration, the patient required my highest level of preparedness to intervene emergently and I personally spent this critical care time directly and personally managing the patient. This critical care time included obtaining a history; examining the patient; pulse oximetry; ordering and review of studies; arranging urgent treatment with development of a management plan; evaluation of patient's response to treatment; frequent reassessment; and discussions with other providers. It was exclusive of separately billable procedures and treating other patients and teaching time. Please see Assessment and Plan section and the rest of the note for further information on patient assessment and treatment This dictation may have been done utilizing a voice recognition system. Attempts have been made to correct errors. However, there may be uncorrected grammatical, spelling, and recognitions errors present. 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 She was also complaining of headaches. In the ER patient's blood pressures were 200/100s and patient was having active dry heaves. She patient also has had tooth to 3 loose stools a day for unknown duration. She also reported having some chest discomfort but denies any pain that was reproducible. Patient's troponins were elevated in the ER. The ER staff discovered bed bugs crawling out of her purse. Patient was admitted to the medical floor for elevated troponin, nausea, vomiting, acute kidney injury, hypertensive urgency and diarrhea. On 02/25/2024 evening patient had a rapid response called in patient was in respiratory distress and cyanotic, thought to have aspirated with O2 sats in the 50s to 70s, patient was intubated for impending respiratory failure and transferred to the ICU for further management. She was started on ceftriaxone, azithromycin. Sedated with fentanyl and Versed infusion as she dropped her blood pressures with propofol which was discontinued Patient seen and examined this morning in the ICU, remains intubated on CMV mode of ventilation, peep of 8, 50% FiO2. Sedated with fentanyl and Versed infusion, patient does open her eyes but does not follow simple commands, she did follow commands did bedside RN. Urine output has been adequate in response to diuretics. T-max of 100.4?, hemodynamically stable Review of Systems Review of Systems: ROS unobtainable: Yes unobtainable due to endotracheal tube and unobtainable due to medical condition PMFSH Past Medical History Medical History (Updated 02/26/24 @ 11:53 by Vanessa Haynes MD) Acute on chronic kidney failure Diarrhea History of CVA (cerebrovascular accident) Right-sided weakness and expressive aphasia HTN (hypertension) Medically noncompliant Occult blood positive stool Respiratory failure Type 2 diabetes mellitus Surgical History Surgical History No pertinent past surgical history Family History Family History (Updated 02/24/24 @ 07:44 by Malorie Pacheco DO) Other Unknown family medical history Social History Social History (Updated 02/24/24 @ 07:45 by Malorie Pacheco DO) Social History: Code status: Full code Surrogate decision maker: Sister Smoking packs per day: 0.5 Smoking cigarettes per day: 10.0 Years smoked: 36 Smoking pack-years: 18.00 Smoking status: Current every day smoker Tobacco type: cigarettes Alcohol intake: never Substance use: unknown Do You Feel Safe in your Home?: No Lack of Transportation: No Lack of Food: Never True Current Housing: I Have Housing Concerned About Future Housing: Decline to Answer Difficulty Paying Gas/Electric Bills: Decline to Answer Difficulty Paying for Meds: Decline to Answer Currently Unemployed: Decline to Answer Education: Decline to Answer Difficulty w/ Childcare or Family Care: Decline to Answer Spiritual care concerns: No Meds Home Medications and Allergies Home Medications Medication Instructions Recorded Confirmed Type omeprazole 40 mg capsule,delayed 40 mg PO DAILY 11/15/21 02/24/24 History release aspirin 81 mg chewable tablet 81 mg PO DAILY 02/24/24 02/24/24 History empagliflozin 10 mg tablet 10 mg PO DAILY 02/24/24 02/24/24 History (Jardiance) sitagliptin phosphate 100 mg 100 mg PO DAILY 02/24/24 02/24/24 History tablet (Januvia) Allergies Allergy/AdvReac Type Severity Reaction Status Date / Time insulin glargine Allergy Severe Swelling Verified 11/04/22 16:57 amoxicillin Allergy Unknown Unknown Verified 11/04/22 16:57 cephalexin Allergy Unknown Unknown Verified 11/04/22 16:57 doxycycline Allergy Unknown Itching Verified 11/04/22 16:57 latex Allergy Unknown Unknown Verified 11/04/22 16:57 Penicillins Allergy Unknown Unknown Verified 11/04/22 16:57 sulfamethoxazole Allergy Unknown Swelling Verified 11/04/22 16:57 sumatriptan Allergy Unknown Unknown Verified 11/04/22 16:57 trazodone Allergy Unknown Swelling Verified 11/04/22 16:57 trimethoprim Allergy Unknown Swelling Verified 11/04/22 16:57 clindamycin Allergy Unknown Verified 11/04/22 16:57 Vital Signs Vital Signs - 24 hr 02/25/24 12:00 02/25/24 12:00 02/25/24 12:00 Temperature 98.0 F Pulse Rate 64 63 63 Respiratory Rate 20 Blood Pressure 153/70 H Pulse Oximetry 96 96 Oxygen Delivery Room Air Fraction of Inspired Oxygen 02/25/24 12:50 02/25/24 14:00 02/25/24 16:00 Temperature 98.0 F Pulse Rate 74 80 Respiratory Rate 20 Blood Pressure 164/89 H Pulse Oximetry 98 Oxygen Delivery Room Air Fraction of Inspired Oxygen 02/25/24 16:00 02/25/24 16:00 02/25/24 18:00 Temperature Pulse Rate 81 81 81 Respiratory Rate Blood Pressure Pulse Oximetry Oxygen Delivery Room Air Fraction of Inspired Oxygen 02/25/24 21:26 02/25/24 21:58 02/25/24 22:10 Temperature Pulse Rate 116 H 106 H 105 H Respiratory Rate 33 H 35 H 35 H Blood Pressure Pulse Oximetry Oxygen Delivery Fraction of Inspired Oxygen 02/25/24 22:18 02/25/24 22:37 02/25/24 22:50 Temperature Pulse Rate 101 H 81 86 Respiratory Rate 30 H 35 H Blood Pressure Pulse Oximetry Oxygen Delivery Fraction of Inspired Oxygen 02/25/24 23:04 02/25/24 20:00 02/26/24 00:00 Temperature Pulse Rate 85 104 H 83 Respiratory Rate 32 H 32 H Blood Pressure Pulse Oximetry Oxygen Delivery Fraction of Inspired Oxygen 02/26/24 00:00 02/26/24 00:59 02/26/24 01:00 Temperature 100.4 F H Pulse Rate 88 88 90 Respiratory Rate 33 H 32 H 35 H Blood Pressure 106/83 Pulse Oximetry 94 Oxygen Delivery Fraction of Inspired Oxygen 02/25/24 22:00 02/26/24 00:00 02/26/24 02:00 Temperature Pulse Rate 108 H 81 89 Respiratory Rate Blood Pressure Pulse Oximetry Oxygen Delivery Fraction of Inspired Oxygen 02/26/24 02:00 02/26/24 02:00 02/26/24 00:00 Temperature Pulse Rate 89 89 89 Respiratory Rate 18 18 18 Blood Pressure Pulse Oximetry 94 Oxygen Delivery Mechanical Ventilation Fraction of Inspired Oxygen 70 02/25/24 20:45 02/25/24 23:15 02/26/24 04:00 Temperature Pulse Rate 110 H 86 Respiratory Rate Blood Pressure Pulse Oximetry 96 97 Oxygen Delivery Mechanical Ventilation Mechanical Ventilation Fraction of Inspired Oxygen 100 70 70 02/26/24 04:25 02/26/24 04:10 02/26/24 04:00 Temperature 99.7 F H Pulse Rate 86 Respiratory Rate 20 Blood Pressure 189/109 H Pulse Oximetry 100 99 Oxygen Delivery Mechanical Ventilation Fraction of Inspired Oxygen 50 50 02/26/24 04:00 02/26/24 04:00 02/26/24 04:00 Temperature Pulse Rate 87 87 87 Respiratory Rate 18 18 Blood Pressure Pulse Oximetry Oxygen Delivery Fraction of Inspired Oxygen 02/26/24 03:05 02/26/24 06:00 02/26/24 06:00 Temperature 98.2 F Pulse Rate 84 82 81 Respiratory Rate 19 Blood Pressure 165/95 H Pulse Oximetry 100 99 Oxygen Delivery Mechanical Ventilation Fraction of Inspired Oxygen 50 02/26/24 06:00 02/26/24 06:00 02/26/24 02:00 Temperature 99.7 F H Pulse Rate 81 81 89 Respiratory Rate 19 19 18 Blood Pressure 155/95 H Pulse Oximetry 100 Oxygen Delivery Fraction of Inspired Oxygen 02/26/24 05:30 02/26/24 07:36 02/26/24 07:36 Temperature Pulse Rate 81 74 Respiratory Rate Blood Pressure Pulse Oximetry 98 97 97 Oxygen Delivery Mechanical Ventilation Mechanical Ventilation Mechanical Ventilation Fraction of Inspired Oxygen 50 40 40 02/26/24 07:43 02/26/24 08:00 02/26/24 08:00 Temperature 98.9 F Pulse Rate 79 98 81 Respiratory Rate 16 18 Blood Pressure 131/85 Pulse Oximetry 98 Oxygen Delivery Fraction of Inspired Oxygen 02/26/24 08:00 02/26/24 08:00 02/26/24 08:00 Temperature Pulse Rate 80 Respiratory Rate 17 Blood Pressure Pulse Oximetry 97 Oxygen Delivery Mechanical Ventilation Fraction of Inspired Oxygen 40 40 02/26/24 08:00 02/26/24 10:14 02/26/24 10:39 Temperature Pulse Rate 80 79 Respiratory Rate 17 Blood Pressure Pulse Oximetry 100 Oxygen Delivery Mechanical Ventilation Mechanical Ventilation Fraction of Inspired Oxygen 40 40 02/26/24 10:00 02/26/24 10:00 02/26/24 10:00 Temperature Pulse Rate 77 77 77 Respiratory Rate 19 19 Blood Pressure Pulse Oximetry Oxygen Delivery Fraction of Inspired Oxygen Exam Narrative: General: Intubated and sedated HEENT:? Pupils equal and reactive, sclerae is clear, ETT in place Neck:? Supple Respiratory:? Coarse breath sounds bilaterally, decreased at bases, no wheezing Cardiac:? S1-S2 normal, regular rate and rhythm Abdomen:? Soft, nontender, nondistended, hypoactive bowel sounds Extremities:? Trace ankle and foot edema, palpable pedal pulses Neuro:? Intubated, sedated, opens eyes to name but does not follow simple commands, withdraws to pain, she did follow commands for the bedside RN Skin:? Warm and dry Psych:? Unable to assess this time Results Labs 02/26/24 03:19 02/26/24 03:20 Labs: Short CBC 02/25/24 02/26/24 Range/Units 22:15 03:19 WBC 15.3 H 16.8 H (4.5-10.0) K/mm3 Hgb 14.9 14.1 (12.0-15.0) g/dL Hct 44.4 42.3 (37.0-47.0) % Plt Count 177 162 (150-375) k/mm3 BMP 02/25/24 02/26/24 22:14 03:20 Sodium 140 141 Potassium 3.9 3.4 Chloride 104 106 Carbon Dioxide 24 25 BUN 30 H 32 H Creatinine 1.30 H 1.50 H Glucose 259 H 324 H Calcium 8.4 8.6 Cardiac Enzymes 02/25/24 02/26/24 Range/Units 22:14 08:06 Troponin I 0.166 H* 0.193 H* (0.000-0.034) ng/mL Liver Function 02/25/24 02/26/24 Range/Units 22:14 03:20 Total Bilirubin 0.8 0.4 (0.2-1.3) mg/dL AST 67 H 41 H (14-36) U/L ALT 31 30 (6-35) U/L Alkaline Phosphatase 95 96 (38-126) U/L Albumin 4.1 3.8 (3.5-5.1) g/dL Urine 02/25/24 Range/Units 21:55 Urine Color Yellow (Yellow) Urine Appearance Clear (Clear) Urine pH 5.5 (5.0-9.0) Ur Specific Mcdaniel 1.025 (1.001-1.035) Urine Protein 3+ H (Negative) mg/dL Urine Glucose (UA) 1+ H (Negative) mg/dL Quality VTE Prophylaxis VTE prophylaxis: pharmacologic ordered Hospitalist MIPS Advance Care Plan I have confirmed that the patient's Advanced Care Plan is present, code status is documented, or surrogate decision maker is listed in patient medical record.: Yes Medication Reconciliation I have utilized all available resources to obtain, update and review the patients current medications (includes all prescriptions, OTC, herbals, cannabis, and nutritional supplements).: Yes
[2024-02-26 11:49] LABS: Glucose Point of Care 301 mg/dl (65-105)
--- NOTE | 2024-02-26 15:55 | P.PNIM_ITS ---
Progress Note: A&P Assessment and Plan (1) Acute on chronic kidney failure: Code(s): N17.9 - Acute kidney failure, unspecified; N18.9 - Chronic kidney disease, unspecified Status: Acute (2) Acute exacerbation of CHF (congestive heart failure): Qualifiers: Heart failure type: unspecified Qualified Code(s): I50.9 - Heart failure, unspecified Code(s): I50.9 - Heart failure, unspecified Status: Acute (3) Pneumonia: Qualifiers: Pneumonia type: aspiration pneumonia Aspiration pneumonia type: due to gastric secretions Laterality: unspecified laterality Code(s): J18.9 - Pneumonia, unspecified organism Status: Acute (4) Pulmonary edema: Qualifiers: Chronicity: acute Qualified Code(s): J81.0 - Acute pulmonary edema Code(s): J81.1 - Chronic pulmonary edema Status: Acute Plan Acute respiratory failure Patient had sudden onset respiratory distress on February 24, patient was noticed to have nausea vomiting Patient was intubated, placed on mechanical ventilation Patient was transferred to ICU for close monitoring Chronic patient still on mechanical ventilation, 50% oxygen, sedated with fentanyl and Versed infusion, maintain RASS of 0 to -2, daily SBT and SAT Acute heart failure Patient has Pulmonary edema: Pulmonary edema could be multifactorial likely related to hypertensive urgency, mitral regurg, CHF more pulmonary hypertension -continue diuresis Echocardiogram 11/10/2022: Summary 1. Complete two-dimensional, color flow and Doppler transthoracic echocardiogram is performed. 2. Left ventricular chamber dimension is normal. 3. Left ventricular systolic function is normal, estimated at 55-60%. 4. There is severely increased left ventricular wall thickness. 5. The left ventricular diastolic function is grade II diastolic dysfunction. 6. Left atrial chamber dimension is mildly enlarged. 7. There is moderate mitral valve regurgitation. 8. The mitral valve has thickened leaflets. 9. Mild pulmonary hypertension, estimated pulmonary arterial systolic pressure is 44 mmHg Follow echocardiogram Pneumonia Possible aspiration pneumonia Patient did have nausea, vomiting prior to admission, he also has been having dry heaves when she was in the hospital, sudden acute onset respiratory failure, suspect aspiration versus pulmonary edema -continue ceftriaxone, azithromycin, added Flagyl -continue methylprednisolone for possible pneumonia acute on chronic kidney disease, could be related congestive changes -continue diuresis -monitor urine output, renal function electrolytes History of diabetes mellitus: Code(s): Z86.39 - Personal history of other endocrine, nutritional and metabolic disease Status: Acute Assessment and Plan: Continue Accu-Cheks and sliding scale insulin, added Lantus -hemoglobin A1c was 7.3 this admission Hypertensive urgency Status: Acute Assessment and Plan: Hypertensive urgency, blood pressures have improved -will continue to monitor Nausea & vomiting: Qualifiers: Vomiting type: unspecified Qualified Code(s): R11.2 - Nausea with vomiting, unspecified Code(s): R11.2 - Nausea with vomiting, unspecified Status: Acute Assessment and Plan: No episodes of nausea or vomiting vomiting while she was in the hospital but reported dry heaves and nausea on 02/25/2024 Mitral regurgitation: Code(s): I34.0 - Nonrheumatic mitral (valve) insufficiency Status: Acute Assessment and Plan: History of moderate mitral valve regurgitation on echocardiogram done in October of 2002 -will repeat echocardiogram to evaluate for valvular dysfunction Plan DVT prophylaxis: Lovenox Stress ulcer prophylaxis: Protonix Nutrition: Will start tube feeds Subjective Date/time seen: 02/26/24 15:55 Interval history: I saw exam patient in ICU, patient is intubated, on sedation, no obvious dist ress, patient is on mechanical ventilation on 50% oxygen. Patient is afebrile, blood pressure stable, not on vasopressor. Labs reviewed. Exam Narrative: GENERAL: Ill-appearing, intubated, in no acute distress. Well-nourished. - EYES: EOMI. Anicteric. - HENT: Moist mucous membranes. - LUNGS: Coarse breath sound bilaterall y - CARDIOVASCULAR: Regular rate and rhyth m. No murmur. No JVD. - ABDOMEN: Soft, non-tender and non-dist ended. No palpable masses. - EXTREMITIES: No edema. Peripheral puls es 2+. Non-tender. - NEUROLOGIC: On sedation - PSYCHIATRIC on sedation, and not orien nellie x 3 - SKIN: No rashes or lesions. Warm. - LYMPH: No cervical lymphadenopathy. Objective Data Vital Signs Vital Signs: Vital Signs - 24 hr 02/25/24 16:00 02/25/24 16:00 02/25/24 16:00 Temperature 98.0 F Pulse Rate 80 81 81 Respiratory Rate 20 Blood Pressure 164/89 H Pulse Oximetry 98 Oxygen Delivery Room Air Fraction of Inspired Oxygen 02/25/24 18:00 02/25/24 21:26 02/25/24 21:58 Temperature Pulse Rate 81 116 H 106 H Respiratory Rate 33 H 35 H Blood Pressure Pulse Oximetry Oxygen Delivery Fraction of Inspired Oxygen 02/25/24 22:10 02/25/24 22:18 02/25/24 22:37 Temperature Pulse Rate 105 H 101 H 81 Respiratory Rate 35 H 30 H Blood Pressure Pulse Oximetry Oxygen Delivery Fraction of Inspired Oxygen 02/25/24 22:50 02/25/24 23:04 02/25/24 20:00 Temperature Pulse Rate 86 85 104 H Respiratory Rate 35 H 32 H Blood Pressure Pulse Oximetry Oxygen Delivery Fraction of Inspired Oxygen 02/26/24 00:00 02/26/24 00:00 02/26/24 00:59 Temperature 100.4 F H Pulse Rate 83 88 88 Respiratory Rate 32 H 33 H 32 H Blood Pressure 106/83 Pulse Oximetry 94 Oxygen Delivery Fraction of Inspired Oxygen 02/26/24 01:00 02/25/24 22:00 02/26/24 00:00 Temperature Pulse Rate 90 108 H 81 Respiratory Rate 35 H Blood Pressure Pulse Oximetry Oxygen Delivery Fraction of Inspired Oxygen 02/26/24 02:00 02/26/24 02:00 02/26/24 02:00 Temperature Pulse Rate 89 89 89 Respiratory Rate 18 18 Blood Pressure Pulse Oximetry Oxygen Delivery Fraction of Inspired Oxygen 02/26/24 00:00 02/25/24 20:45 02/25/24 23:15 Temperature Pulse Rate 89 110 H 86 Respiratory Rate 18 Blood Pressure Pulse Oximetry 94 96 97 Oxygen Delivery Mechanical Ventilation Mechanical Ventilation Mechanical Ventilation Fraction of Inspired Oxygen 70 100 70 02/26/24 04:00 02/26/24 04:25 02/26/24 04:10 Temperature 99.7 F H Pulse Rate 86 Respiratory Rate 20 Blood Pressure 189/109 H Pulse Oximetry 100 Oxygen Delivery Fraction of Inspired Oxygen 70 50 02/26/24 04:00 02/26/24 04:00 02/26/24 04:00 Temperature Pulse Rate 87 87 Respiratory Rate 18 Blood Pressure Pulse Oximetry 99 Oxygen Delivery Mechanical Ventilation Fraction of Inspired Oxygen 50 02/26/24 04:00 02/26/24 03:05 02/26/24 06:00 Temperature Pulse Rate 87 84 82 Respiratory Rate 18 Blood Pressure Pulse Oximetry 100 Oxygen Delivery Mechanical Ventilation Fraction of Inspired Oxygen 50 02/26/24 06:00 02/26/24 06:00 02/26/24 06:00 Temperature 98.2 F Pulse Rate 81 81 81 Respiratory Rate 19 19 19 Blood Pressure 165/95 H Pulse Oximetry 99 Oxygen Delivery Fraction of Inspired Oxygen 02/26/24 02:00 02/26/24 05:30 02/26/24 07:36 Temperature 99.7 F H Pulse Rate 89 81 74 Respiratory Rate 18 Blood Pressure 155/95 H Pulse Oximetry 100 98 97 Oxygen Delivery Mechanical Ventilation Mechanical Ventilation Fraction of Inspired Oxygen 50 40 02/26/24 07:36 02/26/24 07:43 02/26/24 08:00 Temperature 98.9 F Pulse Rate 79 98 Respiratory Rate 16 18 Blood Pressure 131/85 Pulse Oximetry 97 98 Oxygen Delivery Mechanical Ventilation Fraction of Inspired Oxygen 40 02/26/24 08:00 02/26/24 08:00 02/26/24 08:00 Temperature Pulse Rate 81 Respiratory Rate Blood Pressure Pulse Oximetry 97 Oxygen Delivery Mechanical Ventilation Fraction of Inspired Oxygen 40 40 02/26/24 08:00 02/26/24 08:00 02/26/24 10:14 Temperature Pulse Rate 80 80 79 Respiratory Rate 17 17 Blood Pressure Pulse Oximetry 100 Oxygen Delivery Mechanical Ventilation Fraction of Inspired Oxygen 40 02/26/24 10:39 02/26/24 10:00 02/26/24 10:00 Temperature Pulse Rate 77 77 Respiratory Rate 19 Blood Pressure Pulse Oximetry Oxygen Delivery Mechanical Ventilation Fraction of Inspired Oxygen 40 02/26/24 10:00 02/26/24 12:00 02/26/24 12:00 Temperature Pulse Rate 77 78 78 Respiratory Rate 19 19 19 Blood Pressure Pulse Oximetry Oxygen Delivery Fraction of Inspired Oxygen 02/26/24 12:00 02/26/24 12:00 02/26/24 12:00 Temperature Pulse Rate 80 80 Respiratory Rate 19 Blood Pressure Pulse Oximetry 100 Oxygen Delivery Mechanical Ventilation Fraction of Inspired Oxygen 40 40 02/26/24 12:00 02/26/24 13:07 02/26/24 13:07 Temperature 98.8 F Pulse Rate 79 70 70 Respiratory Rate 18 18 Blood Pressure 133/78 Pulse Oximetry 99 99 Oxygen Delivery Mechanical Ventilation Fraction of Inspired Oxygen 40 02/26/24 13:19 02/26/24 13:30 02/26/24 13:30 Temperature Pulse Rate 77 74 78 Respiratory Rate 18 18 18 Blood Pressure Pulse Oximetry Oxygen Delivery Fraction of Inspired Oxygen 02/26/24 14:00 02/26/24 14:00 02/26/24 14:00 Temperature Pulse Rate 69 69 69 Respiratory Rate 18 18 Blood Pressure Pulse Oximetry Oxygen Delivery Fraction of Inspired Oxygen Intake/Output Intake/Output: Intake & Output 02/23/24 02/24/24 02/25/24 02/26/24 23:59 23:59 23:59 23:59 Intake Total 3930 4433.7 352.3 Output Total 525 2450 1200 Balance 3405 1983.7 -847.7 Meds/Results Medications: Active Medications Generic Name Dose Route Start Last Admin Trade Name Freq PRN Reason Stop Dose Admin Acetaminophen 650 mg 02/25/24 10:29 Acetaminophen 325 Mg Tablet PO Q6H PRN Mild Pain (1-3) or Fever Albuterol 2.5 mg 02/25/24 21:20 Albuterol Sulfate Neb 2.5 Mg/3 Ml Inh INHALATION Q6HRT PRN Shortness Of Breath Albuterol/Ipratropium 3 ml 02/26/24 02:00 02/26/24 13:06 Ipratropium 0.5 Mg/Albuterol Sulfate 2.5 Mg Ampul.Neb 3 Ml INHALATION 3 ml Q6HRT JAQUI Administration Aspirin 81 mg 02/24/24 09:00 02/25/24 08:36 Aspirin 81 Mg Chewable Tablet PO 81 mg DAILY JAQUI Administration Carvedilol 12.5 mg 02/24/24 09:00 02/25/24 22:33 Carvedilol 12.5 Mg Tablet PO Not Given Q12HR JAQUI Dextrose 12.5 gm 02/24/24 07:32 Dextrose 50% 25 Gm/50 Ml Syringe IV PUSH PRN PRN Hypoglycemia Protocol Dextrose 12.5 gm 02/26/24 04:22 Dextrose 50% 25 Gm/50 Ml Syringe IV PUSH PRN PRN Hypoglycemia Protocol Enoxaparin Sodium 40 mg 02/27/24 09:00 Enoxaparin 40 Mg/0.4 Ml Syringe SUB-Q DAILY JAQUI Glucagon 1 mg 02/24/24 07:32 Glucagon For Inj 1 Mg Vial IM PRN PRN Hypoglycemia Protocol Glucagon 1 mg 02/26/24 04:22 Glucagon For Inj 1 Mg Vial IM PRN PRN Hypoglycemia Protocol Glucose 15 gm 02/24/24 07:32 Glucose Oral Gel 15 Gm Of Glucse In 37.5 Gm Tube PO PRN PRN Hypoglycemia Protocol Glucose 15 gm 02/26/24 04:22 Glucose Oral Gel 15 Gm Of Glucse In 37.5 Gm Tube PO PRN PRN Hypoglycemia Protocol Hydralazine HCl 10 mg 02/26/24 07:49 Hydralazine Hcl 20 Mg/Ml Vial IV PUSH Q4H PRN Blood Pressure - High Dextrose 1,000 mls @ 100 mls/hr 02/24/24 07:32 Dextrose 5% 1,000 Ml IVPB PRN PRN Hypoglycemia Protocol Ceftriaxone Sodium 2 gm in 100 mls @ 200 mls/hr 02/25/24 21:00 02/25/24 23:04 Rocephin 2 Gm/Ns 100 Ml IVPB Infused Q24H JAQUI Infusion Azithromycin 500 mg in 250 mls @ 250 mls/hr 02/25/24 22:00 02/25/24 23:51 Zithromax IVPB Infused Q24H JAQUI Infusion Fentanyl Citrate 2,500 mcg in 250 mls @ 5 mls/hr 02/26/24 00:35 02/26/24 14:00 Fentanyl 2,500 Mcg/Ns 250 Ml IV CONT 50 mcg/hr .Q50H JAQUI 5 mls/hr Titration Protocol 50 MCG/HR Midazolam HCl 100 mg in 100 mls @ 2 mls/hr 02/26/24 00:35 02/26/24 14:00 Versed 100 Mg/Ns 100 Ml IV CONT 1 mg/hr .Q50H JAQUI 1 mls/hr Titration Protocol 2 MG/HR Dextrose 1,000 mls @ 100 mls/hr 02/26/24 04:22 Dextrose 5% 1,000 Ml IVPB PRN PRN Hypoglycemia Protocol Metronidazole 500 mg in 100 mls @ 100 mls/hr 02/26/24 08:00 02/26/24 14:23 Flagyl 500 Mg/Iso Soln 100 Ml IVPB 100 mls/hr Q8HR JAQUI Administration Insulin Aspart 4 - 8 units 02/26/24 12:00 02/26/24 11:49 Insulin Aspart (*Bkc) 100 Units/Ml SUB-Q 6 units Q6HR JAQUI Administration Protocol Insulin Glargine 10 units 02/26/24 09:00 02/26/24 08:40 Insulin Glargine (*Bkc) 100 Units/Ml SUB-Q 10 units DAILY JAQUI Administration Labetalol HCl 10 mg 02/25/24 21:30 02/25/24 22:18 Labetalol Hcl Inj 100 Mg/20 Ml Vial IV PUSH 10 mg Q12HR JAQUI Administration Methylprednisolone Sodium Succinate 60 mg 02/25/24 21:00 02/26/24 14:23 Methylprednisolone Sod Succ 125 Mg Vial IV PUSH 60 mg Q8H JAQUI Administration Multi-Ingred Cream/Lotion/Oil/Oint 1 applic 02/26/24 09:00 02/26/24 08:39 Mineral Oil/White Petrolatum Ointment EACH EYE 1 applic Q12HR JAQUI Administration Nicotine 1 patch 02/26/24 09:00 02/26/24 08:43 Nicotine (*Pbkc) 21 Mg Patch TRANSDERM 1 patch DAILY JAQUI Administration Ondansetron HCl 4 mg 02/25/24 20:59 Ondansetron Inj 4 Mg/2 Ml Vial IV PUSH Q6H PRN Nausea And Vomiting Pantoprazole Sodium 40 mg 02/26/24 09:00 02/26/24 08:40 Pantoprazole Sodium Iv 40 Mg Vial IV PUSH 40 mg Q12HR JAQUI Administration Perflutren Lipid Microsphere 0 ml 02/26/24 07:56 Perflutren Lipid Microspheres 1.5 Ml Vial Diluted To 10 Ml Total Volume IV PUSH 02/29/24 07:56 ONCE PRN adequate visualization Protocol Sitagliptin Phosphate 100 mg 02/24/24 09:00 02/25/24 08:48 Sitagliptin Phosphate 100 Mg Tablet PO 100 mg DAILY JAQUI Administration Radiology Results: ITS Impressions Head CT 02/23/24 23:50 IMPRESSION: 1. 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 2. Stable extensive nonspecific cerebral white matter disease, which likely represents chronic small vessel ischemic disease. Abdomen/Pelvis CT 02/23/24 23:52 IMPRESSION: 1. No etiology for the patient's symptoms. Abdomen X-Ray 02/25/24 21:52 IMPRESSION: 1. Nasogastric tube in stomach. 2. Mild pulmonary edema. Chest X-Ray 02/26/24 06:21 Impression: Support tubes, as above. Bibasilar pulmonary edema versus possibly pneumonia. Correlate clinically. Labs Labs: Laboratory Results - last 24 hr 02/25/24 02/25/24 02/25/24 16:04 20:06 21:55 WBC RBC Hgb Hct MCV MCH MCHC RDW Plt Count MPV Puncture Site ABG pH ABG pCO2 ABG pO2 ABG PO2/FiO2 Ratio ABG HCO3 ABG O2 Saturation ABG O2 Content ABG Base Excess A-a Gradient Oxyhemoglobin Carboxyhemoglobin Methemoglobin Reduced Hemoglobin Total Hemoglobin O2 Delivery Device O2 Liters/Min Minute Volume Vent Rate Vent Mode FiO2 Tidal Volume PEEP Peak Inspir Pressure Pressure Support Sodium Potassium Chloride Carbon Dioxide Anion Gap BUN Creatinine Estim Creat Clear Calc Estimated GFR Glucose POC Capillary Glucose 115 H 147 H Lactic Acid Calcium Magnesium Total Bilirubin AST ALT Alkaline Phosphatase Troponin I Total Protein Albumin Triglycerides Urine Color Yellow Urine Appearance Clear Urine pH 5.5 Ur Specific [place] 1.025 Urine Protein 3+ H Urine Glucose (UA) 1+ H Urine Ketones Negative Ur Blood (Man) 2+ H Urine Nitrate Negative Urine Bilirubin Negative Urine Urobilinogen 1.0 Add Ur Microanalysis Reviewed Leukocyte Esterase Rfl Trace H Urine RBC 21-50 H Urine WBC >100 H Ur Squamous Epith Cells None seen Urine Bacteria Rare Urine Casts >20 Hyaline Casts Present Nasal MRSA (PCR) Stl Occult Blood (IFOB) 02/25/24 02/25/24 02/25/24 22:14 22:15 23:07 WBC 15.3 H RBC 5.17 Hgb 14.9 Hct 44.4 MCV 85.9 MCH 28.8 MCHC 33.6 RDW 13.5 Plt Count 177 MPV 11.3 H Puncture Site Right radial ABG pH 7.347 L ABG pCO2 46.5 H ABG pO2 95.8 ABG PO2/FiO2 Ratio 1.06 ABG HCO3 24.9 ABG O2 Saturation 96.9 ABG O2 Content 19.1 ABG Base Excess -1.1 A-a Gradient 498.2 Oxyhemoglobin 96.4 Carboxyhemoglobin 0.5 Methemoglobin 0.1 Reduced Hemoglobin 3.0 Total Hemoglobin 14.0 O2 Delivery Device Ventilator O2 Liters/Min Not Reportable Minute Volume Not Reportable Vent Rate 16 Vent Mode Cmv FiO2 90 Tidal Volume 400 PEEP 8 Peak Inspir Pressure Not Reportable Pressure Support Not Reportable Sodium 140 Potassium 3.9 Chloride 104 Carbon Dioxide 24 Anion Gap 12 BUN 30 H Creatinine 1.30 H Estim Creat Clear Calc 38 Estimated GFR 42 L Glucose 259 H POC Capillary Glucose Lactic Acid 2.2 H Calcium 8.4 Magnesium 1.8 Total Bilirubin 0.8 AST 67 H ALT 31 Alkaline Phosphatase 95 Troponin I 0.166 H* Total Protein 8.0 Albumin 4.1 Triglycerides 245 H Urine Color Urine Appearance Urine pH Ur Specific [place] Urine Protein Urine Glucose (UA) Urine Ketones Ur Blood (Man) Urine Nitrate Urine Bilirubin Urine Urobilinogen Add Ur Microanalysis Leukocyte Esterase Rfl Urine RBC Urine WBC Ur Squamous Epith Cells Urine Bacteria Urine Casts Hyaline Casts Nasal MRSA (PCR) Stl Occult Blood (IFOB) 02/25/24 02/26/24 02/26/24 23:19 02:40 03:19 WBC 16.8 H RBC 4.86 Hgb 14.1 Hct 42.3 MCV 87.0 MCH 29.0 MCHC 33.3 RDW 13.5 Plt Count 162 MPV 11.9 H Puncture Site ABG pH ABG pCO2 ABG pO2 ABG PO2/FiO2 Ratio ABG HCO3 ABG O2 Saturation ABG O2 Content ABG Base Excess A-a Gradient Oxyhemoglobin Carboxyhemoglobin Methemoglobin Reduced Hemoglobin Total Hemoglobin O2 Delivery Device O2 Liters/Min Minute Volume Vent Rate Vent Mode FiO2 Tidal Volume PEEP Peak Inspir Pressure Pressure Support Sodium Potassium Chloride Carbon Dioxide Anion Gap BUN Creatinine Estim Creat Clear Calc Estimated GFR Glucose POC Capillary Glucose 264 H Lactic Acid Calcium Magnesium Total Bilirubin AST ALT Alkaline Phosphatase Troponin I Total Protein Albumin Triglycerides Urine Color Urine Appearance Urine pH Ur Specific [place] Urine Protein Urine Glucose (UA) Urine Ketones Ur Blood (Man) Urine Nitrate Urine Bilirubin Urine Urobilinogen Add Ur Microanalysis Leukocyte Esterase Rfl Urine RBC Urine WBC Ur Squamous Epith Cells Urine Bacteria Urine Casts Hyaline Casts Nasal MRSA (PCR) Stl Occult Blood (IFOB) Positive H 02/26/24 02/26/24 02/26/24 03:20 04:27 05:04 WBC RBC Hgb Hct MCV MCH MCHC RDW Plt Count MPV Puncture Site ABG pH ABG pCO2 ABG pO2 ABG PO2/FiO2 Ratio ABG HCO3 ABG O2 Saturation ABG O2 Content ABG Base Excess A-a Gradient Oxyhemoglobin Carboxyhemoglobin Methemoglobin Reduced Hemoglobin Total Hemoglobin O2 Delivery Device O2 Liters/Min Minute Volume Vent Rate Vent Mode FiO2 Tidal Volume PEEP Peak Inspir Pressure Pressure Support Sodium 141 Potassium 3.4 Chloride 106 Carbon Dioxide 25 Anion Gap 10 BUN 32 H Creatinine 1.50 H Estim Creat Clear Calc 33 Estimated GFR 35 L Glucose 324 H POC Capillary Glucose 264 H Lactic Acid 2.0 Calcium 8.6 Magnesium Total Bilirubin 0.4 AST 41 H ALT 30 Alkaline Phosphatase 96 Troponin I Total Protein 7.0 Albumin 3.8 Triglycerides Urine Color Urine Appearance Urine pH Ur Specific [place] Urine Protein Urine Glucose (UA) Urine Ketones Ur Blood (Man) Urine Nitrate Urine Bilirubin Urine Urobilinogen Add Ur Microanalysis Leukocyte Esterase Rfl Urine RBC Urine WBC Ur Squamous Epith Cells Urine Bacteria Urine Casts Hyaline Casts Nasal MRSA (PCR) Not detected Stl Occult Blood (IFOB) 02/26/24 02/26/24 02/26/24 05:33 07:20 08:06 WBC RBC Hgb Hct MCV MCH MCHC RDW Plt Count MPV Puncture Site Right brachial ABG pH 7.379 ABG pCO2 46.1 H ABG pO2 81.5 ABG PO2/FiO2 Ratio 1.63 ABG HCO3 26.6 H ABG O2 Saturation 95.8 ABG O2 Content 19.5 ABG Base Excess 1.0 A-a Gradient 223.1 Oxyhemoglobin 95.4 Carboxyhemoglobin 0.3 Methemoglobin 0.1 Reduced Hemoglobin 4.2 Total Hemoglobin 14.5 O2 Delivery Device Ventilator O2 Liters/Min Not Reportable Minute Volume Not Reportable Vent Rate 16 Vent Mode Cmv FiO2 50 Tidal Volume 400 PEEP 8 Peak Inspir Pressure Not Reportable Pressure Support Not Reportable Sodium Potassium Chloride Carbon Dioxide Anion Gap BUN Creatinine Estim Creat Clear Calc Estimated GFR Glucose POC Capillary Glucose 269 H Lactic Acid Calcium Magnesium Total Bilirubin AST ALT Alkaline Phosphatase Troponin I 0.193 H* Total Protein Albumin Triglycerides Urine Color Urine Appearance Urine pH Ur Specific [place] Urine Protein Urine Glucose (UA) Urine Ketones Ur Blood (Man) Urine Nitrate Urine Bilirubin Urine Urobilinogen Add Ur Microanalysis Leukocyte Esterase Rfl Urine RBC Urine WBC Ur Squamous Epith Cells Urine Bacteria Urine Casts Hyaline Casts Nasal MRSA (PCR) Stl Occult Blood (IFOB) 02/26/24 11:41 WBC RBC Hgb Hct MCV MCH MCHC RDW Plt Count MPV Puncture Site ABG pH ABG pCO2 ABG pO2 ABG PO2/FiO2 Ratio ABG HCO3 ABG O2 Saturation ABG O2 Content ABG Base Excess A-a Gradient Oxyhemoglobin Carboxyhemoglobin Methemoglobin Reduced Hemoglobin Total Hemoglobin O2 Delivery Device O2 Liters/Min Minute Volume Vent Rate Vent Mode FiO2 Tidal Volume PEEP Peak Inspir Pressure Pressure Support Sodium Potassium Chloride Carbon Dioxide Anion Gap BUN Creatinine Estim Creat Clear Calc Estimated GFR Glucose POC Capillary Glucose 301 H Lactic Acid Calcium Magnesium Total Bilirubin AST ALT Alkaline Phosphatase Troponin I Total Protein Albumin Triglycerides Urine Color Urine Appearance Urine pH Ur Specific [place] Urine Protein Urine Glucose (UA) Urine Ketones Ur Blood (Man) Urine Nitrate Urine Bilirubin Urine Urobilinogen Add Ur Microanalysis Leukocyte Esterase Rfl Urine RBC Urine WBC Ur Squamous Epith Cells Urine Bacteria Urine Casts Hyaline Casts Nasal MRSA (PCR) Stl Occult Blood (IFOB)
[2024-02-26 16:08] LABS: Glucose Point of Care 186 mg/dl (65-105)
--- NOTE | 2024-02-26 17:02 | PC.NURSE ---
Updated patient's sister, Cece, via telephone on patient current status.
--- NOTE | 2024-02-26 18:38 | PC.NURSE ---
Discussed new contact, Jeyson Ibanez with Cece, patient's POA and sister. Sister ok with updating Jeyson with plan of care.
--- NOTE | 2024-02-26 18:48 | PC.NURSE ---
Jeyson Mendez, updated on patient's condition and plan of care.
[2024-02-26] MEDS: cefTRIAXone 2 GM/NS 100 ML 2 GM/100 ML BAG IVPB (20:29)
[2024-02-26] MEDS: AZITHROMYCIN 500 MG/NS 250 ML 500 MG/250 ML BAG 250 MG IVPB (22:00)
[2024-02-26 23:46] LABS: Glucose Point of Care 244 mg/dl (65-105)
[2024-02-27] VITALS (42 sets, daily range): BP systolic 122–163; BP diastolic 61–93; PULSE 65–90; RESP 17–22; TEMP 36.4–37.1; O2SAT 96–100
--- NOTE | 2024-02-27 | ECHO_ITS ---
Patient Info Name: Adalgisa Tirado Age: 64 years : 1960 Gender: Female Ht: 66 in Wt: 142 lbs BSA: 1.74 m2 HR: 90 bpm BP: 141 / 72 mmHg Heart Rhythm: Sinus Rhythm Technical Quality: Fair Exam Date: 02/27/2024 7:22 AM Exam Location: Echo Lab Patient Status: Inpatient Admit Date: 02/24/2024 Staff Ordering Physician: Vanessa Haynes MD Family Assistant: Kelly Barriga RDCS Attending Provider: Malorie Pacheco DO Referring Physician: Ivy HECK; Exam Type: CA echo dop color flow w con Study Info Indications - elevated troponin, cp Complete two-dimensional, color flow and Doppler transthoracic echocardiogram is performed with contrast to opacify the left ventricle and to improve the deliniation of the left ventricle endocardial borders. Contrast/Agitated Saline Contrast/Ag. Saline: Definity Amount: 2.00 ml Administered By: Kelly Barriga RDCS Existing IV Access: Yes IV Access Condition: patent with no signs of infiltration Summary 1. Left ventricular chamber dimension is normal. 2. There is mildly increased left ventricular wall thickness. 3. Left ventricular systolic function is normal, estimated at 60-65%. 4. There is no aortic valve stenosis. 5. There is no aortic valve regurgitation. 6. There is no mitral valve stenosis. 7. There is no mitral valve regurgitation. 8. The left ventricular diastolic function is grade I diastolic dysfunction. Left Ventricle Left ventricular chamber dimension is normal. Left ventricular systolic function is normal, estimated at 60-65%. There is mildly increased left ventricular wall thickness. Left ventricular septal wall motion is normal. The left ventricular diastolic function is grade I diastolic dysfunction. Right Ventricle Right ventricular chamber dimension is normal. Right ventricular systolic function is normal. Left Atria Left atrial chamber dimension is mildly enlarged. Right Atria Right atrial chamber dimension is normal. Aortic Valve The aortic valve is trileaflet. There is no aortic valve sclerosis. There is no aortic valve stenosis. There is no aortic valve regurgitation. Pulmonic Valve The pulmonic valve is not well visualized. Mitral Valve The mitral valve has normal leaflets. There is no mitral valve stenosis. There is no mitral valve regurgitation. Tricuspid Valve The tricuspid valve leaflets are normal. There is no significant tricuspid valve stenosis. There is no tricuspid valve regurgitation. Pericardium/Pleural The pericardium appears normal. There is no pericardial effusion. Inferior Vena Cava Normal inferior vena cava with >50% collapse upon inspiration consistent with normal right atrial pressure, 5 mmHg. Aorta The aortic root size at the sinus of Valsalva is normal. The prox ascending aorta size is normal. Left Ventricular Outflow Tract Name Value Normal LVOT 2D LVOT Diameter 1.99 cm LVOT Doppler LVOT Peak Gradient 2 mmHg LVOT Mean Gradient 1 mmHg LVOT VTI 13.31 cm LVOT VTI/AV VTI Ratio 0.68 LVOT Stroke Volume 41.42 ml LVOT CO 3.15 l/min LVOT CI 1.82 L/min/m2 Pulmonic Valve Name Value Normal RVOT Doppler RVOT Peak Gradient 4 mmHg PV Doppler PV Peak Gradient 5 mmHg Mitral Valve Name Value Normal MV Doppler MV Decel Milam 477.33 cm/s2 MV PHT 0 s MV Area (PHT) 3.84 cm2 4.00-5.00 MV Diastolic Function MV E Peak Velocity 94.27 cm/s MV A Peak Velocity 127.84 cm/s MV E/A 0.74 MV Decel Time 0 s MV Annular TDI MV E/e' (Septal) 22.79 <=8.00 MV E/e' (Lateral) 20.57 <=8.00 MV E/e' (Average) 21.68 Tricuspid Valve Name Value Normal Estimated PAP/RSVP RA Pressure 5 mmHg <=5 Aorta Name Value Normal Ascending Aorta Ao Root Diameter (MM) 3.28 cm Ao Root Diam Index (MM) 1.89 cm/m2 Aortic Valve Name Value Normal AV Doppler AV Peak Velocity 126.68 cm/s AV Peak Gradient 6 mmHg AV Mean Gradient 3 mmHg AV VTI 19.53 cm AV Area (Cont Eq VTI) 2.12 cm2 >=3.00 AV Area (Cont Eq Irvin) 1.70 cm2 AV Regurgitation 2D LVOT Area 3.11 cm2 Ventricles Name Value Normal LV Dimensions 2D/MM LVOT Diameter 1.99 cm LV Fractional Shortening/Ejection Fraction 2D/MM LV Diastolic Volume (4C MOD) 70.98 ml LV EF (4C MOD) 65 % LV Diastolic Volume (2C MOD) 66.40 ml LV EF (2C MOD) 61 % LV Diastolic Volume (BP MOD) 70.17 ml 46.00-106.00 LV Diastolic Volume Index (BP MOD) 0.04 l/m2 0.03-0.06 LV Systolic Volume (BP MOD) 25.37 ml 14.00-42.00 LV Systolic Volume Index (BP MOD) 0.01 l/m2 0.01-0.02 LV EF (BP MOD) 64 % 54-74 LV Diastolic Length (4C) 7.93 cm LV Systolic Length (4C) 6.82 cm LV Stroke Volume (4C MOD) 46.07 ml Atria Name Value Normal LA Dimensions LA Dimension (MM) 4.41 cm 2.70-3.80 LA Volume (4C A-L) 27.00 ml LA Volume (BP A-L) 26.33 ml RA Dimensions RA Area (4C) 10.64 cm2 <=18.00 Report Signatures Amended by Shree Olmos on 02/27/2024 13:07 Amended by Shree Olmos on 02/27/2024 12:51
[2024-02-27] MEDS: INSULIN ASPART (*BKC) 100 UNITS/ML SUB-Q ×2 (00:25→05:45)
[2024-02-27] MEDS: IPRATROPIUM 0.5 MG/ALBUTEROL SULFATE 2.5 MG AMPUL.NEB 3 ML INHALATION ×4 (02:52→20:00)
[2024-02-27 03:36] LABS: Basophils Percent Auto 0.1 % (0.2-1.2); Hematocrit 37.3 % (37.0-47.0); Immature Granulocyte Absolute 0.13 K/mm3 (0.00-0.031); Immature Granulocyte Percent A 0.8 % (0-0.5); Lymphocytes Absolute Auto 1.05 K/mm3 (0.9-3.2); Lymphocytes Percent Auto 6.5 % (18.3-44.2); Mean Corpuscular HGB Conc 32.2 g/dl (32-36); Mean Corpuscular Hemoglobin 28.6 pg (26-34); Mean Corpuscular Volume 88.8 fl (80-100); Mean Platelet Volume 12.3 fl (7.4-10.4); Monocytes Absolute Auto 0.2 K/mm3 (0.1-0.6); Monocytes Percent Auto 1.3 % (2.6-8.5); Neutrophils Absolute Auto 14.8 K/mm3 (1.3-6.7); Neutrophils Percent Auto 91.3 % (45.5-73.1); Platelet Count Result 151 k/mm3 (150-375); Red Cell Distribution Width 13.6 % (11.5-14.5); White Blood Count 16.2 K/mm3 (4.5-10.0)
[2024-02-27 03:52] LABS: INR 1.2; Lactic Acid Reflex 2.1 mmol/L (0.7-2.0); Prothrombin Time 15.5 Seconds (11.1-14.7)
[2024-02-27 03:53] LABS: Partial Thromboplastin Time 27.9 Seconds (22.3-36.8)
[2024-02-27 04:07] LABS: Alanine Aminotransferase 20 U/L (6-35); Albumin Level 3.2 g/dL (3.5-5.1); Alkaline Phosphatase 68 U/L (38-126); Anion Gap 9 mmol/L (4-12); Aspartate Amino Transferase 20 U/L (14-36); Bilirubin,Total 0.2 mg/dL (0.2-1.3); Blood Urea Nitrogen 41 mg/dL (7-17); Calcium 8.3 mg/dL (8.4-10.2); Carbon Dioxide 27 mmol/L (22-30); Chloride 108 mmol/L (98-107); Estimated CRCL calculation 28 ml/min; Estimated Glomerular Filt Rate 29; Glucose 238 mg/dL (65-110); Magnesium 2.1 mg/dL (1.6-2.3); Potassium 3.4 mmol/L (3.4-5.0); Sodium 144 mmol/L (137-145)
[2024-02-27 04:12] LABS: Anisocytosis 1+; Ovalocytes 1+; Platelet Estimate Adequate (Adequate)
[2024-02-27 04:13] LABS: Schistocytes None Seen
[2024-02-27 05:01] LABS: CRP 7.2 mg/dL (<1.0)
[2024-02-27] MEDS: metroNIDAZOLE 500 MG/ISO 100ML 500 MG/100 ML BAG 100 MG IVPB ×3 (05:44→21:01)
[2024-02-27] MEDS: methylPREDNISolone SOD SUCC 125 MG VIAL 60 MG IV PUSH (05:45)
[2024-02-27 06:01] LABS: Glucose Point of Care 211 mg/dl (65-105)
[2024-02-27 06:34] LABS: Reflex Lactic Acid Yes or No Add Lactic
[2024-02-27 06:40] LABS: Alveolar/Arterial O2 Gradient 128.5 mmHg; Base Excess ABG 1.6 mEq/l (+/-2.0); Carboxyhemoglobin 0.9 % THb (0-2.0); Fractional Inspired Oxygen 40 %; HCO3 ABG 27.5 mEq/l (22.0-26.0); Oxygen Content ABG 20.4 %vol (16.0-22.0); Oxygen Saturation ABG 97.4 % (95.0-100.0); Oxyhemoglobin 97.1 % THb (90.0-100.0); PCO2 ABG 48.3 mmHg (35.0-45.0); PO2 ABG 101.2 mmHg (80.0-100.0); PO2 FiO2 Ratio Arterial Blood 2.53 %; Total Hemoglobin 14.9 g/dL (12.0-18.0); pH ABG 7.374 (7.350-7.450)
[2024-02-27 06:41] LABS: Device VENTILATOR; Modified Allen's Test Pass; Site Drawn RIGHT RADIAL
[2024-02-27 06:42] LABS: Arterial Blood Gas PEEP 5 cmH2O; Arterial Blood Gas Vent Mode CMV; Arterial Blood Gas Ventilator rate 18 /MIN
[2024-02-27 06:43] LABS: Arterial Blood Gas Tidal Volume 400 ml
[2024-02-27 06:58] LABS: Lactic Acid 1.6 mmol/L (0.7-2.0)
[2024-02-27] MEDS: PERFLUTREN LIPID MICROSPHERES 1.5 ML VIAL DILUTED TO 10 ML TOTAL VOLUME IV PUSH (07:59)
--- NOTE | 2024-02-27 08:38 | WPDINTPN ---
Progress Note: A&P Assessment and Plan (1) Respiratory failure: Qualifiers: Chronicity: acute Respiratory failure complication: hypoxia Qualified Code(s): J96.01 - Acute respiratory failure with hypoxia Code(s): J96.90 - Respiratory failure, unspecified, unspecified whether with hypoxia or hypercapnia Status: Acute Assessment and Plan: 02/24/2024: Patient initially presented with nausea, vomiting, hypertensive urgency -on the night of 02/25/2024, patient had significant dyspnea, hypoxia with O2 sats in the 50s to 70 with central cyanosis, she was in impending respiratory failure -02/25/2024: Intubated on the medical floor and transferred to ICU for further management -patient currently on CMV mode of ventilation, peep of 5, 40% FiO2 -chest x-ray and ABGs reviewed -will continue diuresis with low-dose Lasix as chest x-ray continues to show pulmonary edema -sedated with fentanyl and Versed infusion, maintain RASS of 0 to -2, daily SBT and SAT - Will have bedside RN decrease sedation, once she is more awake will place her on pressure support ventilation and evaluate for extubation (2) Pulmonary edema: Qualifiers: Chronicity: acute Qualified Code(s): J81.0 - Acute pulmonary edema Code(s): J81.1 - Chronic pulmonary edema Status: Acute Assessment and Plan: Pulmonary edema could be multifactorial likely related to hypertensive urgency, mitral regurg, CHF more pulmonary hypertension -continue diuresis (3) Pneumonia: Qualifiers: Pneumonia type: aspiration pneumonia Aspiration pneumonia type: due to gastric secretions Laterality: unspecified laterality Code(s): J18.9 - Pneumonia, unspecified organism Status: Acute Assessment and Plan: Patient did have nausea, vomiting prior to admission, he also has been having dry heaves when she was in the hospital, sudden acute onset respiratory failure, suspect aspiration versus pulmonary edema -continue ceftriaxone, azithromycin,Flagyl -will wean methylprednisone (4) Acute exacerbation of CHF (congestive heart failure): Qualifiers: Heart failure type: unspecified Qualified Code(s): I50.9 - Heart failure, unspecified Code(s): I50.9 - Heart failure, unspecified Status: Acute Assessment and Plan: Patient with hypertensive urgency, pulmonary edema, hypoxemia, requiring intubation -restarted home Jardiance -continue diuresis -will check echocardiogram Echocardiogram 11/10/2022: Summary 1. Complete two-dimensional, color flow and Doppler transthoracic echocardiogram is performed. 2. Left ventricular chamber dimension is normal. 3. Left ventricular systolic function is normal, estimated at 55-60%. 4. There is severely increased left ventricular wall thickness. 5. The left ventricular diastolic function is grade II diastolic dysfunction. 6. Left atrial chamber dimension is mildly enlarged. 7. There is moderate mitral valve regurgitation. 8. The mitral valve has thickened leaflets. 9. Mild pulmonary hypertension, estimated pulmonary arterial systolic pressure is 44 mmHg (5) Acute kidney injury: Code(s): N17.9 - Acute kidney failure, unspecified Status: Acute Assessment and Plan: Acute on chronic kidney disease, could be related congestive changes -continue diuresis -monitor urine output, renal function electrolytes (6) History of diabetes mellitus: Code(s): Z86.39 - Personal history of other endocrine, nutritional and metabolic disease Status: Acute Assessment and Plan: Continue Accu-Cheks and sliding scale insulin, added Lantus -hemoglobin A1c was 7.3 this admission (7) Hypertensive urgency: Code(s): I16.0 - Hypertensive urgency Status: Acute Assessment and Plan: Hypertensive urgency, blood pressures have improved -will continue to monitor -continue Coreg -p.r.n. hydralazine (8) Nausea & vomiting: Qualifiers: Vomiting type: unspecified Qualified Code(s): R11.2 - Nausea with vomiting, unspecified Code(s): R11.2 - Nausea with vomiting, unspecified Status: Acute Assessment and Plan: No episodes of nausea or vomiting vomiting while she was in the hospital but reported dry heaves and nausea on 02/25/2024 -tolerating tube feeds (9) Mitral regurgitation: Code(s): I34.0 - Nonrheumatic mitral (valve) insufficiency Status: Acute Assessment and Plan: History of moderate mitral valve regurgitation on echocardiogram done in October of 2002 -will repeat echocardiogram to evaluate for valvular dysfunction Plan DVT prophylaxis: Lovenox Stress ulcer prophylaxis: Protonix Nutrition: Tolerating tube feeds Code Status: Full code Critical Care Time Spent: 33 minutes Due to a high probability of clinically significant, life threatening deterioration, the patient required my highest level of preparedness to intervene emergently and I personally spent this critical care time directly and personally managing the patient. This critical care time included obtaining a history; examining the patient; pulse oximetry; ordering and review of studies; arranging urgent treatment with development of a management plan; evaluation of patient's response to treatment; frequent reassessment; and discussions with other providers. It was exclusive of separately billable procedures and treating other patients and teaching time. Please see Assessment and Plan section and the rest of the note for further information on patient assessment and treatment This dictation may have been done utilizing a voice recognition system. Attempts have been made to correct errors. However, there may be uncorrected grammatical, spelling, and recognitions errors present. Subjective Date/time seen: 02/27/24 08:38 Interval history: Reason for consult: Acute respiratory failure, possible aspiration, pulmonary edema, pneumonia 02/27/2024: Patient seen and examined the ICU, remains intubated on CMV mode of ventilation, peep of 5, 40% FiO2. Sedated with fentanyl and Versed infusion. Overnight patient was agitated, hypertensive, tachypneic so sedation was increased. Urine output has been adequate, afebrile, hemodynamically stable Review of Systems Review of Systems: ROS unobtainable: Yes unobtainable due to endotracheal tube and unobtainable due to medical condition Exam Narrative: General: Intubated and sedated HEENT:? Pupils equal and reactive, sclerae is clear, ETT in place Neck:? Supple Respiratory:? Coarse breath sounds bilaterally, decreased at bases, no wheezing Cardiac:? S1-S2 normal, regular rate and rhythm Abdomen:? Soft, nontender, nondistended, hypoactive bowel sounds Extremities:? Trace ankle and foot edema, palpable pedal pulses Neuro:? Intubated, sedated, does not open her eyes or follow simple commands this morning. Withdraws to pain, Skin:? Warm and dry Psych:? Unable to assess this time Objective Data Vital Signs Vital Signs: Vital Signs - 24 hr 02/26/24 10:14 02/26/24 10:39 02/26/24 10:00 Temperature Pulse Rate 79 77 Respiratory Rate Blood Pressure Pulse Oximetry 100 Oxygen Delivery Mechanical Ventilation Mechanical Ventilation Fraction of Inspired Oxygen 40 40 02/26/24 10:00 02/26/24 10:00 02/26/24 12:00 Temperature Pulse Rate 77 77 78 Respiratory Rate 19 19 19 Blood Pressure Pulse Oximetry Oxygen Delivery Fraction of Inspired Oxygen 02/26/24 12:00 02/26/24 12:00 02/26/24 12:00 Temperature Pulse Rate 78 80 80 Respiratory Rate 19 19 Blood Pressure Pulse Oximetry 100 Oxygen Delivery Mechanical Ventilation Fraction of Inspired Oxygen 40 02/26/24 12:00 02/26/24 12:00 02/26/24 13:07 Temperature 98.8 F Pulse Rate 79 70 Respiratory Rate 18 Blood Pressure 133/78 Pulse Oximetry 99 99 Oxygen Delivery Mechanical Ventilation Fraction of Inspired Oxygen 40 40 02/26/24 13:07 02/26/24 13:19 02/26/24 13:30 Temperature Pulse Rate 70 77 74 Respiratory Rate 18 18 18 Blood Pressure Pulse Oximetry Oxygen Delivery Fraction of Inspired Oxygen 02/26/24 13:30 02/26/24 14:00 02/26/24 14:00 Temperature Pulse Rate 78 69 69 Respiratory Rate 18 18 18 Blood Pressure Pulse Oximetry Oxygen Delivery Fraction of Inspired Oxygen 02/26/24 14:00 02/26/24 16:00 02/26/24 16:00 Temperature Pulse Rate 69 80 80 Respiratory Rate 19 Blood Pressure Pulse Oximetry 98 Oxygen Delivery Mechanical Ventilation Fraction of Inspired Oxygen 40 02/26/24 16:00 02/26/24 16:00 02/26/24 16:00 Temperature 98.5 F Pulse Rate 79 79 79 Respiratory Rate 18 18 18 Blood Pressure 141/81 H Pulse Oximetry 100 Oxygen Delivery Fraction of Inspired Oxygen 02/26/24 16:00 02/26/24 16:19 02/26/24 18:00 Temperature Pulse Rate 79 83 Respiratory Rate Blood Pressure Pulse Oximetry 97 Oxygen Delivery Mechanical Ventilation Fraction of Inspired Oxygen 40 40 02/26/24 18:00 02/26/24 18:00 02/26/24 20:17 Temperature Pulse Rate 83 83 81 Respiratory Rate 18 18 18 Blood Pressure Pulse Oximetry Oxygen Delivery Fraction of Inspired Oxygen 02/26/24 20:17 02/26/24 20:23 02/26/24 20:00 Temperature 98.5 F Pulse Rate 80 79 82 Respiratory Rate 18 18 Blood Pressure 145/92 H Pulse Oximetry 100 100 Oxygen Delivery Mechanical Ventilation Fraction of Inspired Oxygen 40 02/26/24 20:42 02/26/24 20:29 02/26/24 20:00 Temperature Pulse Rate 80 82 Respiratory Rate 18 18 Blood Pressure Pulse Oximetry Oxygen Delivery Fraction of Inspired Oxygen 40 02/26/24 20:00 02/26/24 22:00 02/26/24 22:00 Temperature Pulse Rate 83 75 75 Respiratory Rate 18 Blood Pressure Pulse Oximetry Oxygen Delivery Fraction of Inspired Oxygen 02/26/24 20:00 02/26/24 22:00 02/26/24 22:00 Temperature Pulse Rate 83 75 75 Respiratory Rate 18 18 18 Blood Pressure 118/63 Pulse Oximetry 100 Oxygen Delivery Fraction of Inspired Oxygen 02/26/24 23:46 02/27/24 00:00 02/27/24 00:00 Temperature Pulse Rate 82 77 78 Respiratory Rate 18 Blood Pressure 135/75 Pulse Oximetry 100 100 Oxygen Delivery Mechanical Ventilation Fraction of Inspired Oxygen 40 02/27/24 00:00 02/27/24 00:00 02/27/24 00:00 Temperature Pulse Rate 78 78 Respiratory Rate 18 18 Blood Pressure Pulse Oximetry Oxygen Delivery Fraction of Inspired Oxygen 40 02/27/24 02:00 02/27/24 02:52 02/27/24 02:54 Temperature 98.2 F Pulse Rate 85 67 65 Respiratory Rate 17 18 Blood Pressure 122/72 Pulse Oximetry 98 100 Oxygen Delivery Mechanical Ventilation Fraction of Inspired Oxygen 40 02/27/24 03:02 02/27/24 04:11 02/27/24 05:10 Temperature 97.6 F Pulse Rate 66 77 78 Respiratory Rate 18 18 Blood Pressure 140/75 Pulse Oximetry 99 98 Oxygen Delivery Mechanical Ventilation Fraction of Inspired Oxygen 40 02/27/24 04:00 02/27/24 02:00 02/27/24 04:00 Temperature Pulse Rate 77 82 Respiratory Rate 18 18 Blood Pressure Pulse Oximetry Oxygen Delivery Fraction of Inspired Oxygen 40 02/27/24 06:00 02/27/24 06:13 02/27/24 02:00 Temperature Pulse Rate 70 86 86 Respiratory Rate 18 18 18 Blood Pressure Pulse Oximetry Oxygen Delivery Fraction of Inspired Oxygen 02/27/24 04:00 02/27/24 04:30 02/27/24 06:00 Temperature Pulse Rate 82 79 70 Respiratory Rate 19 18 18 Blood Pressure Pulse Oximetry Oxygen Delivery Fraction of Inspired Oxygen 02/27/24 06:30 02/27/24 02:00 02/27/24 04:00 Temperature Pulse Rate 90 80 80 Respiratory Rate 18 Blood Pressure Pulse Oximetry Oxygen Delivery Fraction of Inspired Oxygen 02/27/24 06:00 02/27/24 06:00 02/27/24 07:03 Temperature Pulse Rate 70 87 86 Respiratory Rate 20 18 Blood Pressure 141/72 H Pulse Oximetry 100 Oxygen Delivery Fraction of Inspired Oxygen 02/27/24 07:48 02/27/24 07:48 02/27/24 07:59 Temperature Pulse Rate 72 72 77 Respiratory Rate 18 18 Blood Pressure Pulse Oximetry 100 Oxygen Delivery Mechanical Ventilation Fraction of Inspired Oxygen 40 Intake/Output Intake/Output: Intake & Output 02/24/24 02/25/24 02/26/24 02/27/24 23:59 23:59 23:59 23:59 Intake Total 3930 4433.7 1069.6 656.8 Output Total 525 2450 2500 350 Balance 3405 1983.7 -1430.4 306.8 Meds/Results Medications: Active Medications Generic Name Dose Route Start Last Admin Trade Name Freq PRN Reason Stop Dose Admin Acetaminophen 650 mg 02/25/24 10:29 Acetaminophen 325 Mg Tablet PO Q6H PRN Mild Pain (1-3) or Fever Albuterol 2.5 mg 02/25/24 21:20 Albuterol Sulfate Neb 2.5 Mg/3 Ml Inh INHALATION Q6HRT PRN Shortness Of Breath Albuterol/Ipratropium 3 ml 02/26/24 02:00 02/27/24 07:48 Ipratropium 0.5 Mg/Albuterol Sulfate 2.5 Mg Ampul.Neb 3 Ml INHALATION 3 ml Q6HRT JAQUI Administration Aspirin 81 mg 02/24/24 09:00 02/25/24 08:36 Aspirin 81 Mg Chewable Tablet PO 81 mg DAILY JAQUI Administration Carvedilol 12.5 mg 02/24/24 09:00 02/25/24 22:33 Carvedilol 12.5 Mg Tablet PO Not Given Q12HR JAQUI Dextrose 12.5 gm 02/26/24 04:22 Dextrose 50% 25 Gm/50 Ml Syringe IV PUSH PRN PRN Hypoglycemia Protocol Enoxaparin Sodium 40 mg 02/27/24 09:00 Enoxaparin 40 Mg/0.4 Ml Syringe SUB-Q DAILY JAQUI Glucagon 1 mg 02/26/24 04:22 Glucagon For Inj 1 Mg Vial IM PRN PRN Hypoglycemia Protocol Glucose 15 gm 02/26/24 04:22 Glucose Oral Gel 15 Gm Of Glucse In 37.5 Gm Tube PO PRN PRN Hypoglycemia Protocol Hydralazine HCl 10 mg 02/26/24 07:49 Hydralazine Hcl 20 Mg/Ml Vial IV PUSH Q4H PRN Blood Pressure - High Ceftriaxone Sodium 2 gm in 100 mls @ 200 mls/hr 02/25/24 21:00 02/26/24 22:00 Rocephin 2 Gm/Ns 100 Ml IVPB Infused Q24H JAQUI Infusion Azithromycin 500 mg in 250 mls @ 250 mls/hr 02/25/24 22:00 02/26/24 23:00 Zithromax IVPB Infused Q24H JAQUI Infusion Fentanyl Citrate 2,500 mcg in 250 mls @ 10 mls/hr 02/26/24 00:35 02/27/24 06:13 Fentanyl 2,500 Mcg/Ns 250 Ml IV CONT 100 mcg/hr .Q25H JAQUI 10 mls/hr Titration Protocol 100 MCG/HR Midazolam HCl 100 mg in 100 mls @ 4 mls/hr 02/26/24 00:35 02/27/24 07:03 Versed 100 Mg/Ns 100 Ml IV CONT 4 mg/hr .Q25H JAQUI 4 mls/hr Titration Protocol 4 MG/HR Dextrose 1,000 mls @ 100 mls/hr 02/26/24 04:22 Dextrose 5% 1,000 Ml IVPB PRN PRN Hypoglycemia Protocol Metronidazole 500 mg in 100 mls @ 100 mls/hr 02/26/24 08:00 02/27/24 07:23 Flagyl 500 Mg/Iso Soln 100 Ml IVPB Infused Q8HR JAQUI Infusion Insulin Aspart 4 - 8 units 02/26/24 12:00 02/27/24 05:45 Insulin Aspart (*Bkc) 100 Units/Ml SUB-Q 4 units Q6HR JAQUI Administration Protocol Insulin Glargine 15 units 02/27/24 09:00 Insulin Glargine (*Bkc) 100 Units/Ml SUB-Q DAILY JAQUI Labetalol HCl 10 mg 02/25/24 21:30 02/25/24 22:18 Labetalol Hcl Inj 100 Mg/20 Ml Vial IV PUSH 10 mg Q12HR JAQUI Administration Methylprednisolone Sodium Succinate 60 mg 02/25/24 21:00 02/27/24 05:45 Methylprednisolone Sod Succ 125 Mg Vial IV PUSH 60 mg Q8H JAQUI Administration Multi-Ingred Cream/Lotion/Oil/Oint 1 applic 02/26/24 09:00 02/26/24 20:27 Mineral Oil/White Petrolatum Ointment EACH EYE 1 applic Q12HR JAQUI Administration Nicotine 1 patch 02/26/24 09:00 02/26/24 08:43 Nicotine (*Pbkc) 21 Mg Patch TRANSDERM 1 patch DAILY JAQUI Administration Ondansetron HCl 4 mg 02/25/24 20:59 Ondansetron Inj 4 Mg/2 Ml Vial IV PUSH Q6H PRN Nausea And Vomiting Pantoprazole Sodium 40 mg 02/26/24 09:00 02/26/24 20:26 Pantoprazole Sodium Iv 40 Mg Vial IV PUSH 40 mg Q12HR JAQUI Administration Perflutren Lipid Microsphere 0 ml 02/26/24 07:56 Perflutren Lipid Microspheres 1.5 Ml Vial Diluted To 10 Ml Total Volume IV PUSH 02/29/24 07:56 ONCE PRN adequate visualization Protocol Sitagliptin Phosphate 100 mg 02/24/24 09:00 02/25/24 08:48 Sitagliptin Phosphate 100 Mg Tablet PO 100 mg DAILY JAQUI Administration Radiology Results: ITS Impressions Head CT 02/23/24 23:50 IMPRESSION: 1. 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 2. Stable extensive nonspecific cerebral white matter disease, which likely represents chronic small vessel ischemic disease. Abdomen/Pelvis CT 02/23/24 23:52 IMPRESSION: 1. No etiology for the patient's symptoms. Abdomen X-Ray 02/25/24 21:52 IMPRESSION: 1. Nasogastric tube in stomach. 2. Mild pulmonary edema. Chest X-Ray 02/27/24 06:11 Impression: Minimal bibasilar pulmonary edema, improved from prior exam. Support tubes, as above. Labs Labs: Laboratory Results - last 24 hr 02/26/24 02/26/24 02/26/24 08:06 11:41 16:05 WBC RBC Hgb Hct MCV MCH MCHC RDW Plt Count MPV Immature Gran % (Auto) Neut % (Auto) Lymph % (Auto) [place] % (Auto) Eos % (Auto) Baso % (Auto) Lymph # (Auto) [place] # (Auto) Eos # (Auto) Baso # (Auto) Abs Immat Gran (auto) Absolute Neuts (auto) Absolute Nucleated RBC Nucleated RBC % Platelet Estimate Anisocytosis Ovalocytes Schistocytes PT INR APTT Puncture Site ABG pH ABG pCO2 ABG pO2 ABG PO2/FiO2 Ratio ABG HCO3 ABG O2 Saturation ABG O2 Content ABG Base Excess A-a Gradient Oxyhemoglobin Carboxyhemoglobin Methemoglobin Reduced Hemoglobin Total Hemoglobin O2 Delivery Device O2 Liters/Min Minute Volume Vent Rate Vent Mode FiO2 Tidal Volume PEEP Peak Inspir Pressure Pressure Support Sodium Potassium Chloride Carbon Dioxide Anion Gap BUN Creatinine Estim Creat Clear Calc Estimated GFR Glucose POC Capillary Glucose 301 H 186 H Lactic Acid Calcium Phosphorus Magnesium Total Bilirubin AST ALT Alkaline Phosphatase Troponin I 0.193 H* C-Reactive Protein Total Protein Albumin 02/26/24 02/27/24 02/27/24 23:43 03:28 05:33 WBC 16.2 H RBC 4.20 Hgb 12.0 Hct 37.3 MCV 88.8 MCH 28.6 MCHC 32.2 RDW 13.6 Plt Count 151 MPV 12.3 H Immature Gran % (Auto) 0.8 H Neut % (Auto) 91.3 H Lymph % (Auto) 6.5 L [place] % (Auto) 1.3 L Eos % (Auto) 0.0 Baso % (Auto) 0.1 L Lymph # (Auto) 1.05 [place] # (Auto) 0.2 Eos # (Auto) 0.0 Baso # (Auto) 0.0 Abs Immat Gran (auto) 0.13 H Absolute Neuts (auto) 14.8 H Absolute Nucleated RBC 0.000 Nucleated RBC % 0.0 Platelet Estimate Adequate Anisocytosis 1+ Ovalocytes 1+ Schistocytes None seen PT 15.5 H INR 1.2 APTT 27.9 Puncture Site ABG pH ABG pCO2 ABG pO2 ABG PO2/FiO2 Ratio ABG HCO3 ABG O2 Saturation ABG O2 Content ABG Base Excess A-a Gradient Oxyhemoglobin Carboxyhemoglobin Methemoglobin Reduced Hemoglobin Total Hemoglobin O2 Delivery Device O2 Liters/Min Minute Volume Vent Rate Vent Mode FiO2 Tidal Volume PEEP Peak Inspir Pressure Pressure Support Sodium 144 Potassium 3.4 Chloride 108 H Carbon Dioxide 27 Anion Gap 9 BUN 41 H Creatinine 1.80 H Estim Creat Clear Calc 28 Estimated GFR 29 L Glucose 238 H POC Capillary Glucose 244 H 211 H Lactic Acid 2.1 H Calcium 8.3 L Phosphorus 5.0 H Magnesium 2.1 Total Bilirubin 0.2 AST 20 ALT 20 Alkaline Phosphatase 68 Troponin I C-Reactive Protein 7.2 H Total Protein 7.0 Albumin 3.2 L 02/27/24 02/27/24 06:01 06:45 WBC RBC Hgb Hct MCV MCH MCHC RDW Plt Count MPV Immature Gran % (Auto) Neut % (Auto) Lymph % (Auto) [place] % (Auto) Eos % (Auto) Baso % (Auto) Lymph # (Auto) [place] # (Auto) Eos # (Auto) Baso # (Auto) Abs Immat Gran (auto) Absolute Neuts (auto) Absolute Nucleated RBC Nucleated RBC % Platelet Estimate Anisocytosis Ovalocytes Schistocytes PT INR APTT Puncture Site Right radial ABG pH 7.374 ABG pCO2 48.3 H ABG pO2 101.2 H ABG PO2/FiO2 Ratio 2.53 ABG HCO3 27.5 H ABG O2 Saturation 97.4 ABG O2 Content 20.4 ABG Base Excess 1.6 A-a Gradient 128.5 Oxyhemoglobin 97.1 Carboxyhemoglobin 0.9 Methemoglobin 0.0 Reduced Hemoglobin 2.0 Total Hemoglobin 14.9 O2 Delivery Device Ventilator O2 Liters/Min Not Reportable Minute Volume Not Reportable Vent Rate 18 Vent Mode Cmv FiO2 40 Tidal Volume 400 PEEP 5 Peak Inspir Pressure Not Reportable Pressure Support Not Reportable Sodium Potassium Chloride Carbon Dioxide Anion Gap BUN Creatinine Estim Creat Clear Calc Estimated GFR Glucose POC Capillary Glucose Lactic Acid 1.6 Calcium Phosphorus Magnesium Total Bilirubin AST ALT Alkaline Phosphatase Troponin I C-Reactive Protein Total Protein Albumin Quality VTE Prophylaxis VTE prophylaxis: pharmacologic ordered
[2024-02-27] MEDS: carvediloL 12.5 MG TABLET PO ×2 (09:08→21:01)
[2024-02-27] MEDS: PANTOPRAZOLE SODIUM IV 40 MG VIAL IV PUSH ×2 (09:08→21:01)
[2024-02-27] MEDS: POTASSIUM CHLORIDE 20 MEQ PACKET (FOR LIQUID) 40 MEQ PO (09:08)
[2024-02-27] MEDS: ENOXAPARIN 40 MG/0.4 ML SYRINGE SUB-Q (09:09)
[2024-02-27] MEDS: EMPAGLIFLOZIN 10 MG TABLET PO (09:09)
[2024-02-27] MEDS: ASPIRIN 81 MG CHEWABLE TABLET PO (09:09)
[2024-02-27] MEDS: INSULIN GLARGINE (*BKC) 100 UNITS/ML 15 UNITS SUB-Q (09:10)
[2024-02-27] MEDS: MINERAL OIL/WHITE PETROLATUM OINTMENT 1 APPLIC EACH EYE ×2 (09:11→21:02)
[2024-02-27] MEDS: FUROSEMIDE INJ 40 MG/4 ML VIAL 20 MG IV PUSH (09:23)
--- NOTE | 2024-02-27 10:37 | IVDEFINITY ---
Prior to administration of IV Definity the patient was educated on the risks and benefits of the imaging enhancing agent including potential adverse side effects. The patient verbalized understanding. Allergies were verified. No exclusion criteria were identified and at least one of the following inclusion criteria were met: 1) physician request, 2) patient technically difficult to image (per the [place] [employer] guidelines of two or more segments not discernable within the apical view), or 3) questionable left ventricular function. ?
[2024-02-27 11:50] LABS: Glucose Point of Care 193 mg/dl (65-105)
--- NOTE | 2024-02-27 15:19 | PM.IMPN ---
Progress Note: A&P Assessment and Plan (1) Acute on chronic kidney failure: Code(s): N17.9 - Acute kidney failure, unspecified; N18.9 - Chronic kidney disease, unspecified Status: Acute (2) Acute exacerbation of CHF (congestive heart failure): Qualifiers: Heart failure type: unspecified Qualified Code(s): I50.9 - Heart failure, unspecified Code(s): I50.9 - Heart failure, unspecified Status: Acute (3) Pneumonia: Qualifiers: Pneumonia type: aspiration pneumonia Aspiration pneumonia type: due to gastric secretions Laterality: unspecified laterality Code(s): J18.9 - Pneumonia, unspecified organism Status: Acute (4) Pulmonary edema: Qualifiers: Chronicity: acute Qualified Code(s): J81.0 - Acute pulmonary edema Code(s): J81.1 - Chronic pulmonary edema Status: Acute Plan Acute respiratory failure Patient had sudden onset respiratory distress on February 24, patient was noticed to have nausea vomiting Patient was intubated, placed on mechanical ventilation Patient was transferred to ICU for close monitoring Chronic patient still on mechanical ventilation, 50% oxygen, sedated with fentanyl and Versed infusion, maintain RASS of 0 to -2, daily SBT and SAT Acute heart failure Patient has Pulmonary edema: Pulmonary edema could be multifactorial likely related to hypertensive urgency, mitral regurg, CHF more pulmonary hypertension -continue diuresis Echocardiogram 11/10/2022: Summary 1. Complete two-dimensional, color flow and Doppler transthoracic echocardiogram is performed. 2. Left ventricular chamber dimension is normal. 3. Left ventricular systolic function is normal, estimated at 55-60%. 4. There is severely increased left ventricular wall thickness. 5. The left ventricular diastolic function is grade II diastolic dysfunction. 6. Left atrial chamber dimension is mildly enlarged. 7. There is moderate mitral valve regurgitation. 8. The mitral valve has thickened leaflets. 9. Mild pulmonary hypertension, estimated pulmonary arterial systolic pressure is 44 mmHg Follow echocardiogram Patient is on IV Lasix, dosing furosemide patient on patient's condition per training director Pneumonia Possible aspiration pneumonia Patient did have nausea, vomiting prior to admission, he also has been having dry heaves when she was in the hospital, sudden acute onset respiratory failure, suspect aspiration versus pulmonary edema continue ceftriaxone, azithromycin, added Flagyl continue methylprednisolone for possible pneumonia acute on chronic kidney disease, could be related congestive changes -continue diuresis -monitor urine output, renal function electrolytes History of diabetes mellitus: Code(s): Z86.39 - Personal history of other endocrine, nutritional and metabolic disease Status: Acute Assessment and Plan: Continue Accu-Cheks and sliding scale insulin, added Lantus -hemoglobin A1c was 7.3 this admission Hypertensive urgency Status: Acute Assessment and Plan: Hypertensive urgency, blood pressures have improved continue to monitor Controlled Nausea & vomiting: Qualifiers: Vomiting type: unspecified Qualified Code(s): R11.2 - Nausea with vomiting, unspecified Code(s): R11.2 - Nausea with vomiting, unspecified Status: Acute Assessment and Plan: No episodes of nausea or vomiting vomiting while she was in the hospital but reported dry heaves and nausea on 02/25/2024 Mitral regurgitation: Code(s): I34.0 - Nonrheumatic mitral (valve) insufficiency Status: Acute Assessment and Plan: History of moderate mitral valve regurgitation on echocardiogram done in October of 2002 -will repeat echocardiogram to evaluate for valvular dysfunction Plan DVT prophylaxis: Lovenox Stress ulcer prophylaxis: Protonix Nutrition: tube feeds Subjective Date/time seen: 02/27/24 15:19 Interval history: I saw exam patient in ICU, patient was on mechanical ventilation, no obvious distress on sedation with fentanyl and Versed, on CMV mode of ventilation, peep of 5, 40% FiO2. Sedated with fentanyl and Versed infusion. Urine output has been adequate, afebrile, hemodynamically stable not on vasopressors Exam Narrative: GENERAL: Ill-appearing, intubated, in no acute distress. Well-nourished. - EYES: EOMI. Anicteric. - HENT: Moist mucous membranes. - LUNGS: Coarse breath sound bilaterally - CARDIOVASCULAR: Regular rate and rhythm. No murmur. No JVD. - ABDOMEN: Soft, non-tender and non-distended. No palpable masses. - EXTREMITIES: No edema. Peripheral pulses 2+. Non-tender. - NEUROLOGIC: On sedation - PSYCHIATRIC on sedation, and not oriented x 3 - SKIN: No rashes or lesions. Warm. - LYMPH: No cervical lymphadenopathy. Objective Data Vital Signs Vital Signs: Vital Signs - 24 hr 02/26/24 16:00 02/26/24 16:00 02/26/24 16:00 Temperature 98.5 F Pulse Rate 80 80 79 Respiratory Rate 19 18 Blood Pressure 141/81 H Pulse Oximetry 98 100 Oxygen Delivery Mechanical Ventilation Fraction of Inspired Oxygen 40 02/26/24 16:00 02/26/24 16:00 02/26/24 16:00 Temperature Pulse Rate 79 79 Respiratory Rate 18 18 Blood Pressure Pulse Oximetry Oxygen Delivery Fraction of Inspired Oxygen 40 02/26/24 16:19 02/26/24 18:00 02/26/24 18:00 Temperature Pulse Rate 79 83 83 Respiratory Rate 18 Blood Pressure Pulse Oximetry 97 Oxygen Delivery Mechanical Ventilation Fraction of Inspired Oxygen 40 02/26/24 18:00 02/26/24 20:17 02/26/24 20:17 Temperature Pulse Rate 83 81 80 Respiratory Rate 18 18 Blood Pressure Pulse Oximetry 100 Oxygen Delivery Mechanical Ventilation Fraction of Inspired Oxygen 40 02/26/24 20:23 02/26/24 20:00 02/26/24 20:42 Temperature 98.5 F Pulse Rate 79 82 80 Respiratory Rate 18 18 18 Blood Pressure 145/92 H Pulse Oximetry 100 Oxygen Delivery Fraction of Inspired Oxygen 02/26/24 20:29 02/26/24 20:00 02/26/24 20:00 Temperature Pulse Rate 82 83 Respiratory Rate 18 Blood Pressure Pulse Oximetry Oxygen Delivery Fraction of Inspired Oxygen 40 02/26/24 22:00 02/26/24 22:00 02/26/24 20:00 Temperature Pulse Rate 75 75 83 Respiratory Rate 18 18 Blood Pressure Pulse Oximetry Oxygen Delivery Fraction of Inspired Oxygen 02/26/24 22:00 02/26/24 22:00 02/26/24 23:46 Temperature Pulse Rate 75 75 82 Respiratory Rate 18 18 Blood Pressure 118/63 Pulse Oximetry 100 100 Oxygen Delivery Mechanical Ventilation Fraction of Inspired Oxygen 40 02/27/24 00:00 02/27/24 00:00 02/27/24 00:00 Temperature Pulse Rate 77 78 Respiratory Rate 18 Blood Pressure 135/75 Pulse Oximetry 100 Oxygen Delivery Fraction of Inspired Oxygen 40 02/27/24 00:00 02/27/24 00:00 02/27/24 02:00 Temperature 98.2 F Pulse Rate 78 78 85 Respiratory Rate 18 18 17 Blood Pressure 122/72 Pulse Oximetry 98 Oxygen Delivery Fraction of Inspired Oxygen 02/27/24 02:52 02/27/24 02:54 02/27/24 03:02 Temperature Pulse Rate 67 65 66 Respiratory Rate 18 18 Blood Pressure Pulse Oximetry 100 Oxygen Delivery Mechanical Ventilation Fraction of Inspired Oxygen 40 02/27/24 04:11 02/27/24 05:10 02/27/24 04:00 Temperature 97.6 F Pulse Rate 77 78 Respiratory Rate 18 Blood Pressure 140/75 Pulse Oximetry 99 98 Oxygen Delivery Mechanical Ventilation Fraction of Inspired Oxygen 40 40 02/27/24 02:00 02/27/24 04:00 02/27/24 06:00 Temperature Pulse Rate 77 82 70 Respiratory Rate 18 18 18 Blood Pressure Pulse Oximetry Oxygen Delivery Fraction of Inspired Oxygen 02/27/24 06:13 02/27/24 02:00 02/27/24 04:00 Temperature Pulse Rate 86 86 82 Respiratory Rate 18 18 19 Blood Pressure Pulse Oximetry Oxygen Delivery Fraction of Inspired Oxygen 02/27/24 04:30 02/27/24 06:00 02/27/24 06:30 Temperature Pulse Rate 79 70 90 Respiratory Rate 18 18 18 Blood Pressure Pulse Oximetry Oxygen Delivery Fraction of Inspired Oxygen 02/27/24 02:00 02/27/24 04:00 02/27/24 06:00 Temperature Pulse Rate 80 80 70 Respiratory Rate Blood Pressure Pulse Oximetry Oxygen Delivery Fraction of Inspired Oxygen 02/27/24 06:00 02/27/24 07:03 02/27/24 07:48 Temperature Pulse Rate 87 86 72 Respiratory Rate 20 18 Blood Pressure 141/72 H Pulse Oximetry 100 100 Oxygen Delivery Mechanical Ventilation Fraction of Inspired Oxygen 40 02/27/24 07:48 02/27/24 07:59 02/27/24 09:08 Temperature Pulse Rate 72 77 73 Respiratory Rate 18 18 Blood Pressure Pulse Oximetry Oxygen Delivery Fraction of Inspired Oxygen 02/27/24 10:16 02/27/24 08:00 02/27/24 10:00 Temperature Pulse Rate 70 76 70 Respiratory Rate Blood Pressure Pulse Oximetry 100 Oxygen Delivery Mechanical Ventilation Fraction of Inspired Oxygen 40 02/27/24 08:00 02/27/24 10:00 02/27/24 08:00 Temperature 98 F 97.8 F Pulse Rate 76 70 Respiratory Rate 18 18 Blood Pressure 142/71 H 142/72 H Pulse Oximetry 99 100 Oxygen Delivery Fraction of Inspired Oxygen 40 02/27/24 08:00 02/27/24 08:00 02/27/24 10:00 Temperature Pulse Rate 76 76 70 Respiratory Rate 18 18 18 Blood Pressure Pulse Oximetry 99 Oxygen Delivery Mechanical Ventilation Fraction of Inspired Oxygen 40 02/27/24 09:00 02/27/24 10:54 02/27/24 12:00 Temperature Pulse Rate 75 66 Respiratory Rate 18 18 Blood Pressure Pulse Oximetry Oxygen Delivery Fraction of Inspired Oxygen 40 02/27/24 12:00 02/27/24 12:00 02/27/24 12:00 Temperature 98.4 F Pulse Rate 79 79 79 Respiratory Rate 18 18 Blood Pressure 150/75 H Pulse Oximetry 100 100 Oxygen Delivery Mechanical Ventilation Fraction of Inspired Oxygen 30 02/27/24 12:00 02/27/24 12:23 02/27/24 13:14 Temperature Pulse Rate 79 82 69 Respiratory Rate 18 22 H Blood Pressure Pulse Oximetry 98 Oxygen Delivery Mechanical Ventilation Fraction of Inspired Oxygen 30 02/27/24 13:14 02/27/24 13:22 02/27/24 14:00 Temperature Pulse Rate 69 66 66 Respiratory Rate 18 18 Blood Pressure Pulse Oximetry Oxygen Delivery Fraction of Inspired Oxygen 02/27/24 14:00 Temperature 98.3 F Pulse Rate 66 Respiratory Rate 18 Blood Pressure 125/61 Pulse Oximetry 96 Oxygen Delivery Fraction of Inspired Oxygen Intake/Output Intake/Output: Intake & Output 02/24/24 02/25/24 02/26/24 02/27/24 23:59 23:59 23:59 23:59 Intake Total 3930 4433.7 1069.6 716.1 Output Total 525 2450 2500 350 Balance 3405 1983.7 -1430.4 366.1 Meds/Results Medications: Active Medications Generic Name Dose Route Start Last Admin Trade Name Freq PRN Reason Stop Dose Admin Acetaminophen 650 mg 02/25/24 10:29 Acetaminophen 325 Mg Tablet PO Q6H PRN Mild Pain (1-3) or Fever Albuterol 2.5 mg 02/25/24 21:20 Albuterol Sulfate Neb 2.5 Mg/3 Ml Inh INHALATION Q6HRT PRN Shortness Of Breath Albuterol/Ipratropium 3 ml 02/26/24 02:00 02/27/24 13:14 Ipratropium 0.5 Mg/Albuterol Sulfate 2.5 Mg Ampul.Neb 3 Ml INHALATION 3 ml Q6HRT JAQUI Administration Aspirin 81 mg 02/24/24 09:00 02/27/24 09:09 Aspirin 81 Mg Chewable Tablet PO 81 mg DAILY JAQUI Administration Carvedilol 12.5 mg 02/24/24 09:00 02/27/24 09:08 Carvedilol 12.5 Mg Tablet PO 12.5 mg Q12HR JAQUI Administration Dextrose 12.5 gm 02/26/24 04:22 Dextrose 50% 25 Gm/50 Ml Syringe IV PUSH PRN PRN Hypoglycemia Protocol Empagliflozin 10 mg 02/27/24 09:00 02/27/24 09:09 Empagliflozin 10 Mg Tablet PO 10 mg DAILY JAQUI Administration Enoxaparin Sodium 40 mg 02/27/24 09:00 02/27/24 09:09 Enoxaparin 40 Mg/0.4 Ml Syringe SUB-Q 40 mg DAILY JAQUI Administration Glucagon 1 mg 02/26/24 04:22 Glucagon For Inj 1 Mg Vial IM PRN PRN Hypoglycemia Protocol Glucose 15 gm 02/26/24 04:22 Glucose Oral Gel 15 Gm Of Glucse In 37.5 Gm Tube PO PRN PRN Hypoglycemia Protocol Hydralazine HCl 10 mg 02/26/24 07:49 Hydralazine Hcl 20 Mg/Ml Vial IV PUSH Q4H PRN Blood Pressure - High Ceftriaxone Sodium 2 gm in 100 mls @ 200 mls/hr 02/25/24 21:00 02/26/24 22:00 Rocephin 2 Gm/Ns 100 Ml IVPB Infused Q24H JAQUI Infusion Azithromycin 500 mg in 250 mls @ 250 mls/hr 02/25/24 22:00 02/26/24 23:00 Zithromax IVPB Infused Q24H JAQUI Infusion Fentanyl Citrate 2,500 mcg in 250 mls @ 5 mls/hr 02/26/24 00:35 02/27/24 12:00 Fentanyl 2,500 Mcg/Ns 250 Ml IV CONT 50 mcg/hr .Q50H JAQUI 5 mls/hr Titration Protocol 50 MCG/HR Midazolam HCl 100 mg in 100 mls @ 3 mls/hr 02/26/24 00:35 02/27/24 12:23 Versed 100 Mg/Ns 100 Ml IV CONT 3 mg/hr .[id number] JAQUI 3 mls/hr Titration Protocol 3 MG/HR Dextrose 1,000 mls @ 100 mls/hr 02/26/24 04:22 Dextrose 5% 1,000 Ml IVPB PRN PRN Hypoglycemia Protocol Metronidazole 500 mg in 100 mls @ 100 mls/hr 02/26/24 08:00 02/27/24 13:55 Flagyl 500 Mg/Iso Soln 100 Ml IVPB 100 mls/hr Q8HR JAQUI Administration Insulin Aspart 4 - 8 units 02/26/24 12:00 02/27/24 12:06 Insulin Aspart (*Bkc) 100 Units/Ml SUB-Q Not Given Q6HR [facility] Protocol Insulin Glargine 15 units 02/27/24 09:00 02/27/24 09:10 Insulin Glargine (*Bkc) 100 Units/Ml SUB-Q 15 units DAILY JAQUI Administration Labetalol HCl 10 mg 02/25/24 21:30 02/25/24 22:18 Labetalol Hcl Inj 100 Mg/20 Ml Vial IV PUSH 10 mg Q12HR JAQUI Administration Methylprednisolone Sodium Succinate 40 mg 02/28/24 06:00 Methylprednisolone Sod Succ 40 Mg Vial IV PUSH 03/01/24 05:59 Q8H JAQUI Multi-Ingred Cream/Lotion/Oil/Oint 1 applic 02/26/24 09:00 02/27/24 09:11 Mineral Oil/White Petrolatum Ointment EACH EYE 1 applic Q12HR JAQUI Administration Nicotine 1 patch 02/26/24 09:00 02/27/24 09:10 Nicotine (*Pbkc) 21 Mg Patch TRANSDERM Not Given DAILY [facility] Ondansetron HCl 4 mg 02/25/24 20:59 Ondansetron Inj 4 Mg/2 Ml Vial IV PUSH Q6H PRN Nausea And Vomiting Pantoprazole Sodium 40 mg 02/26/24 09:00 02/27/24 09:08 Pantoprazole Sodium Iv 40 Mg Vial IV PUSH 40 mg Q12HR AJQUI Administration Sitagliptin Phosphate 100 mg 02/24/24 09:00 02/25/24 08:48 Sitagliptin Phosphate 100 Mg Tablet PO 100 mg DAILY JAQUI Administration Radiology Results: ITS Impressions Head CT 02/23/24 23:50 IMPRESSION: 1. 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 2. Stable extensive nonspecific cerebral white matter disease, which likely represents chronic small vessel ischemic disease. Abdomen/Pelvis CT 02/23/24 23:52 IMPRESSION: 1. No etiology for the patient's symptoms. Abdomen X-Ray 02/25/24 21:52 IMPRESSION: 1. Nasogastric tube in stomach. 2. Mild pulmonary edema. Chest X-Ray 09/02/24 06:11 Impression: Minimal bibasilar pulmonary edema, improved from prior exam. Support tubes, as above. Labs Labs: Laboratory Results - last 24 hr 02/26/24 02/26/24 02/27/24 16:05 23:43 03:28 WBC 16.2 H RBC 4.20 Hgb 12.0 Hct 37.3 MCV 88.8 MCH 28.6 MCHC 32.2 RDW 13.6 Plt Count 151 MPV 12.3 H Immature Gran % (Auto) 0.8 H Neut % (Auto) 91.3 H Lymph % (Auto) 6.5 L [place] % (Auto) 1.3 L Eos % (Auto) 0.0 Baso % (Auto) 0.1 L Lymph # (Auto) 1.05 [place] # (Auto) 0.2 Eos # (Auto) 0.0 Baso # (Auto) 0.0 Abs Immat Gran (auto) 0.13 H Absolute Neuts (auto) 14.8 H Absolute Nucleated RBC 0.000 Nucleated RBC % 0.0 Platelet Estimate Adequate Anisocytosis 1+ Ovalocytes 1+ Schistocytes None seen PT 15.5 H INR 1.2 APTT 27.9 Puncture Site ABG pH ABG pCO2 ABG pO2 ABG PO2/FiO2 Ratio ABG HCO3 ABG O2 Saturation ABG O2 Content ABG Base Excess A-a Gradient Oxyhemoglobin Carboxyhemoglobin Methemoglobin Reduced Hemoglobin Total Hemoglobin O2 Delivery Device O2 Liters/Min Minute Volume Vent Rate Vent Mode FiO2 Tidal Volume PEEP Peak Inspir Pressure Pressure Support Sodium 144 Potassium 3.4 Chloride 108 H Carbon Dioxide 27 Anion Gap 9 BUN 41 H Creatinine 1.80 H Estim Creat Clear Calc 28 Estimated GFR 29 L Glucose 238 H POC Capillary Glucose 186 H 244 H Lactic Acid 2.1 H Calcium 8.3 L Phosphorus 5.0 H Magnesium 2.1 Total Bilirubin 0.2 AST 20 ALT 20 Alkaline Phosphatase 68 C-Reactive Protein 7.2 H Total Protein 7.0 Albumin 3.2 L 02/27/24 02/27/24 02/27/24 05:33 06:01 06:45 WBC RBC Hgb Hct MCV MCH MCHC RDW Plt Count MPV Immature Gran % (Auto) Neut % (Auto) Lymph % (Auto) [place] % (Auto) Eos % (Auto) Baso % (Auto) Lymph # (Auto) [place] # (Auto) Eos # (Auto) Baso # (Auto) Abs Immat Gran (auto) Absolute Neuts (auto) Absolute Nucleated RBC Nucleated RBC % Platelet Estimate Anisocytosis Ovalocytes Schistocytes PT INR APTT Puncture Site Right radial ABG pH 7.374 ABG pCO2 48.3 H ABG pO2 101.2 H ABG PO2/FiO2 Ratio 2.53 ABG HCO3 27.5 H ABG O2 Saturation 97.4 ABG O2 Content 20.4 ABG Base Excess 1.6 A-a Gradient 128.5 Oxyhemoglobin 97.1 Carboxyhemoglobin 0.9 Methemoglobin 0.0 Reduced Hemoglobin 2.0 Total Hemoglobin 14.9 O2 Delivery Device Ventilator O2 Liters/Min Not Reportable Minute Volume Not Reportable Vent Rate 18 Vent Mode Cmv FiO2 40 Tidal Volume 400 PEEP 5 Peak Inspir Pressure Not Reportable Pressure Support Not Reportable Sodium Potassium Chloride Carbon Dioxide Anion Gap BUN Creatinine Estim Creat Clear Calc Estimated GFR Glucose POC Capillary Glucose 211 H Lactic Acid 1.6 Calcium Phosphorus Magnesium Total Bilirubin AST ALT Alkaline Phosphatase C-Reactive Protein Total Protein Albumin 02/27/24 11:33 WBC RBC Hgb Hct MCV MCH MCHC RDW Plt Count MPV Immature Gran % (Auto) Neut % (Auto) Lymph % (Auto) [place] % (Auto) Eos % (Auto) Baso % (Auto) Lymph # (Auto) [place] # (Auto) Eos # (Auto) Baso # (Auto) Abs Immat Gran (auto) Absolute Neuts (auto) Absolute Nucleated RBC Nucleated RBC % Platelet Estimate Anisocytosis Ovalocytes Schistocytes PT INR APTT Puncture Site ABG pH ABG pCO2 ABG pO2 ABG PO2/FiO2 Ratio ABG HCO3 ABG O2 Saturation ABG O2 Content ABG Base Excess A-a Gradient Oxyhemoglobin Carboxyhemoglobin Methemoglobin Reduced Hemoglobin Total Hemoglobin O2 Delivery Device O2 Liters/Min Minute Volume Vent Rate Vent Mode FiO2 Tidal Volume PEEP Peak Inspir Pressure Pressure Support Sodium Potassium Chloride Carbon Dioxide Anion Gap BUN Creatinine Estim Creat Clear Calc Estimated GFR Glucose POC Capillary Glucose 193 H Lactic Acid Calcium Phosphorus Magnesium Total Bilirubin AST ALT Alkaline Phosphatase C-Reactive Protein Total Protein Albumin
[2024-02-27] MEDS: FENTANYL 2,500MCG/NS250ML(*CRX 2,500 MCG/250 ML BAG IV CONT (16:52)
[2024-02-27 18:30] LABS: Glucose Point of Care 183 mg/dl (65-105)
[2024-02-27] MEDS: MIDAZOLAM 100MG/NS 100ML(*CRX) 100 MG/100 ML BAG IV CONT (20:59)
[2024-02-27] MEDS: cefTRIAXone 2 GM/NS 100 ML 2 GM/100 ML BAG IVPB (21:01)
[2024-02-27] MEDS: AZITHROMYCIN 500 MG/NS 250 ML 500 MG/250 ML BAG 250 MG IVPB (21:01)
[2024-02-27 21:28] LABS: Glucose Point of Care 204 mg/dl (65-105)
[2024-02-27] MEDS: hydrALAZINE HCL 20 MG/ML VIAL 10 MG IV PUSH (22:14)
[2024-02-27 22:54] LABS: Triglycerides 191 mg/dL (<150)
[2024-02-28] VITALS (50 sets, daily range): BP systolic 109–176; BP diastolic 57–74; PULSE 54–96; RESP 16–22; TEMP 36.4–38; O2SAT 95–100; BMI 23.4
[2024-02-28 00:17] LABS: Glucose Point of Care 169 mg/dl (65-105)
[2024-02-28] MEDS: IPRATROPIUM 0.5 MG/ALBUTEROL SULFATE 2.5 MG AMPUL.NEB 3 ML INHALATION ×4 (01:44→19:51)
[2024-02-28 04:03] LABS: Alveolar/Arterial O2 Gradient 99.8 mmHg; Base Excess ABG 6.4 mEq/l (+/-2.0); Carboxyhemoglobin 0.4 % THb (0-2.0); Fractional Inspired Oxygen 30 %; Methemoglobin ABG 0.1 %THb (0-1.5); Oxygen Content ABG 16.4 %vol (16.0-22.0); Oxyhemoglobin 93.8 % THb (90.0-100.0); PCO2 ABG 39.3 mmHg (35.0-45.0); PO2 ABG 67.9 mmHg (80.0-100.0); PO2 FiO2 Ratio Arterial Blood 2.26 %; Reduced Hemoglobin 5.7 %THb (0-5.0); Total Hemoglobin 12.4 g/dL (12.0-18.0)
[2024-02-28 04:04] LABS: pH ABG 7.501 (7.350-7.450)
[2024-02-28 04:05] LABS: Device VENTILATOR; Modified Allen's Test Pass; Site Drawn RIGHT BRACHIAL
[2024-02-28 04:06] LABS: Arterial Blood Gas PEEP 5 cmH2O; Arterial Blood Gas Tidal Volume 400 ml; Arterial Blood Gas Vent Mode CMV; Arterial Blood Gas Ventilator rate 18 /MIN
[2024-02-28 04:41] LABS: Basophils Percent Auto 0.1 % (0.2-1.2); Hematocrit 39.3 % (37.0-47.0); Hemoglobin 12.6 g/dL (12.0-15.0); Immature Granulocyte Absolute 0.15 K/mm3 (0.00-0.031); Immature Granulocyte Percent A 0.9 % (0-0.5); Lymphocytes Percent Auto 17.2 % (18.3-44.2); Mean Corpuscular HGB Conc 32.1 g/dl (32-36); Mean Corpuscular Hemoglobin 28.8 pg (26-34); Mean Corpuscular Volume 89.9 fl (80-100); Mean Platelet Volume 12.7 fl (7.4-10.4); Monocytes Absolute Auto 0.8 K/mm3 (0.1-0.6); Monocytes Percent Auto 4.9 % (2.6-8.5); Neutrophils Absolute Auto 12.5 K/mm3 (1.3-6.7); Neutrophils Percent Auto 76.9 % (45.5-73.1); Platelet Count Result 184 k/mm3 (150-375); Red Blood Count 4.37 M/mm3 (4.2-5.4); Red Cell Distribution Width 13.9 % (11.5-14.5); White Blood Count 16.2 K/mm3 (4.5-10.0)
[2024-02-28 05:02] LABS: Alanine Aminotransferase 16 U/L (6-35); Albumin Level 3.4 g/dL (3.5-5.1); Alkaline Phosphatase 67 U/L (38-126); Anion Gap 10 mmol/L (4-12); Aspartate Amino Transferase 16 U/L (14-36); Bilirubin,Total 0.3 mg/dL (0.2-1.3); Blood Urea Nitrogen 59 mg/dL (7-17); Calcium 8.5 mg/dL (8.4-10.2); Carbon Dioxide 30 mmol/L (22-30); Chloride 109 mmol/L (98-107); Estimated CRCL calculation 28 ml/min; Estimated Glomerular Filt Rate 29; Glucose 147 mg/dL (65-110); Magnesium 2.5 mg/dL (1.6-2.3); Phosphorus 3.4 mg/dL (2.5-4.5); Potassium 3.6 mmol/L (3.4-5.0); Sodium 149 mmol/L (137-145)
[2024-02-28] MEDS: metroNIDAZOLE 500 MG/ISO 100ML 500 MG/100 ML BAG 100 MG IVPB ×3 (05:18→21:11)
[2024-02-28] MEDS: methylPREDNISolone SOD SUCC 40 MG VIAL IV PUSH ×3 (05:18→21:09)
[2024-02-28] MEDS: hydrALAZINE HCL 20 MG/ML VIAL 10 MG IV PUSH ×3 (05:42→18:29)
--- NOTE | 2024-02-28 08:04 | P.CDI_ITS ---
Severe CDI Query Clarification Request BMI: 23.4 Nutritional Diagnostic Statement: Please refer to the comprehensive nutrition assessment for further information. If you agree with diagnosis of Severe protein calorie malnutrition related to chronic loss of appetite, post CVA as evidenced by inadequate intake <75% needs >1 month; chronic muscle wasting and fat loss. Please specify severity if known: * Mild * Moderate * Severe * Other/Unknown
[2024-02-28] MEDS: POTASSIUM CHLORIDE 20 MEQ PACKET (FOR LIQUID) 40 MEQ FEED TUBE (08:29)
[2024-02-28] MEDS: carvediloL 12.5 MG TABLET PO ×2 (08:29→09:27)
[2024-02-28] MEDS: ASPIRIN 81 MG CHEWABLE TABLET PO (08:29)
[2024-02-28] MEDS: MINERAL OIL/WHITE PETROLATUM OINTMENT 1 APPLIC EACH EYE ×2 (08:30→21:12)
[2024-02-28] MEDS: EMPAGLIFLOZIN 10 MG TABLET PO (08:30)
[2024-02-28] MEDS: ENOXAPARIN 40 MG/0.4 ML SYRINGE SUB-Q (08:30)
[2024-02-28] MEDS: PANTOPRAZOLE SODIUM IV 40 MG VIAL IV PUSH ×2 (08:31→21:09)
[2024-02-28] MEDS: INSULIN GLARGINE (*BKC) 100 UNITS/ML 15 UNITS SUB-Q (08:32)
[2024-02-28] MEDS: amLODIPine BESYLATE 10 MG TABLET PO (09:27)
[2024-02-28] MEDS: MIDAZOLAM HCL (*CRX) 2 MG/2 ML VIAL (09:43)
--- NOTE | 2024-02-28 10:20 | P.CONNP_ITS ---
Assessment and Plan Assessment and plan (1) Acute kidney injury: Code(s): N17.9 - Acute kidney failure, unspecified Status: Acute Assessment and Plan: * creatinine was around 1.1 - 1.4mg/dl in October 2022 * however, prior to that, creatinine was normal * suspect some mild CKD from hypertension and diabetes as well as vascular disease * reasonable urine output in response to IV diuretics * possible etiologies: * CHF * fluctuating hemodynamics/BP * infection (pneumonia) * diuresis * hypoxia * other(?) * follow-up on renal ultrasound * follow trend of repeat labs and UOP (2) Acute respiratory failure: Code(s): J96.00 - Acute respiratory failure, unspecified whether with hypoxia or hypercapnia Status: Acute Assessment and Plan: * impending respiratory failure on evening of 02/24 with shortness of breath, hypoxia and central cyanosis * intubated and placed on mechanical ventilation * thought to be secondary to pulmonary edema * ventilator weaning once more stable * continue ventilator support (3) Acute pulmonary edema: Code(s): J81.0 - Acute pulmonary edema Status: Acute Assessment and Plan: * suspect multifactorial etiology: * hypertensive urgency * CHF * valvular heart disease * pulmonary HTN * other? * IV diuresis as tolerated * repeat Echo results noted (4) Pneumonia: Qualifiers: Aspiration pneumonia type: due to gastric secretions Laterality: unspecified laterality Pneumonia type: aspiration pneumonia Code(s): J18.9 - Pneumonia, unspecified organism Status: Acute Assessment and Plan: * possible componnt of aspiration * noted to have nausea and vomiting along with dry heaves prior to decline in respiratory status * follow culture data * on antibiotics (5) Acute exacerbation of CHF (congestive heart failure): Qualifiers: Heart failure type: unspecified Qualified Code(s): I50.9 - Heart failure, unspecified Code(s): I50.9 - Heart failure, unspecified Status: Acute Assessment and Plan: * suspect cause if not contributing factor with regard to pulmonary edema * other factors include HTN urgency and hypoxia * Echo as noted * BP control * diuresis as tolerated (6) Hypertensive urgency: Code(s): I16.0 - Hypertensive urgency Status: Acute Assessment and Plan: * as noted on admission * BP under better control now * follow trend of hemodynamics (7) History of diabetes mellitus: Code(s): Z86.39 - Personal history of other endocrine, nutritional and metabolic disease Status: Acute Assessment and Plan: * follow accu-cheks * glycemic control per hospitalists/usps letter carrier I will continue to follow the patient with you while she remains hospitalized and make further recommendations as deemed necessary. Thank you for allowing me to participate in the care of this patient. History of Present Illness Reason for Consult Consult date: 02/28/24 Reason for consult: acute renal failure Chief Complaint Chief complaint: JOSE DAVID, Nausea and vomiting, Dehydration, Elevated tr History of Present Illness Narrative: All of the information that I have obtained is from review of the electronic medical record as well as discussion with the physician/ nurses involved in the patient's care as she is currently intubated and on mechanical ventilation and unable to provide me with any history. The patient is a 64-year-old female with a past medical history as outlined below who presented to [facility] Emergency room several days ago with complaints vomiting and not feeling well. Along with a vomiting, she also was complaining of headaches as well. other associated symptoms included loose stools/diarrhea for an undisclosed period of time in conjunction with some chest discomfort. As the symptoms were continuing to progress, she came to the ER for further assessment. Workup and evaluation in the emergency room noted the patient to be quite hypertensive with a systolic BP in the 200s in association with dry heaves. Her troponins were noted to be slightly elevated as well. The patient had addition of old appearance and during ER assessment, it was noted that she had bed bugs crawling out of her purse. Routine blood tests demonstrated evidence of acute kidney injury/acute renal failure as well. Given her ongoing issues with nausea, vomiting as well as her hypertension and mildly elevated troponins, she was initiated on IV fluids and subsequently admitted to the hospital for further evaluation and therapy. Unfortunately, her hospital course has been complicated by acute respiratory failure requiring intubation and mechanical ventilation with a concern for possible aspiration pneumonia requiring transfer to the ICU for further management. Her imaging studies demonstrated evidence of acute pulmonary edema and she has been receiving IV diuretics and effort to optimize her respiratory status. Renal consultation was requested due to her acute kidney injury/acute renal failure. On presentation to the hospital, her creatinine was 1.8 mg/dL. Her baseline creatinine seems to run around 1.1-1.4 mg/dL in the last year. Since her admission, her creatinine initially improved down to 1.3 mg/dL but in the last 1-2 days has slowly risen back up to 1.8 mg/dL. The presumption was that this was secondary to the use of IV diuretics an effort to treat her acute pulmonary edema. It would seem that she may have some baseline renal insufficiency secondary to hypertension, diabetes, and likely vascular disease as well as age. Currently, at the time my evaluation, she remains intubated and on mechanical ventilation. Review of Systems Review of Systems: As per HPI. [facility] Past Medical History Medical History Breast cancer Cerebrovascular accident Residual right-sided weakness and expressive aphasia. Chronic kidney disease Cognitive impairment Hypertension Kidney stone Type 2 diabetes mellitus Surgical History Surgical History (Reviewed 03/06/24 @ 11: by Isaías Chester MD) No pertinent past surgical history Family History Family History Other Unknown family medical history Social History Social History Social History: Surrogate medical decision maker: Son Jeyson Ibanez who lives in [place]. She does not want her sister making decisions for her. Code status: Full code. Smoking packs per day: 1 Smoking cigarettes per day: 20.0 Years smoked: 36 Smoking pack-years: 36.00 Smoking status: Current every day smoker Tobacco type: cigarettes Alcohol intake: never Substance use: never Substance use type: does not use Do You Feel Safe in your Home?: No Lack of Transportation: No Lack of Food: Never True Current Housing: I Have Housing Concerned About Future Housing: Decline to Answer Difficulty Paying Gas/Electric Bills: Decline to Answer Difficulty Paying for Meds: Decline to Answer Currently Unemployed: Decline to Answer Education: Decline to Answer Difficulty w/ Childcare or Family Care: Decline to Answer Spiritual care concerns: No Meds Home Medications and Allergies Home Medications Medication Instructions Recorded Confirmed Type omeprazole 40 mg capsule,delayed 40 mg PO DAILY 11/15/21 03/05/24 History release aspirin 81 mg chewable tablet 81 mg PO DAILY 02/24/24 03/05/24 History empagliflozin 10 mg tablet 10 mg PO DAILY 02/24/24 03/05/24 History (Jardiance) sitagliptin phosphate 100 mg 100 mg PO DAILY 02/24/24 03/05/24 History tablet (Januvia) amlodipine 10 mg tablet 10 mg PO DAILY #30 tabs 03/03/24 03/05/24 Rx carvedilol 12.5 mg tablet (Coreg) 12.5 mg PO Q12HR #30 tabs 03/03/24 03/05/24 Rx clonidine HCl 0.2 mg tablet 0.2 mg PO Q12HR #30 tabs 03/03/24 03/05/24 Rx furosemide 20 mg tablet 20 mg PO DAILY #30 tabs 03/03/24 03/05/24 Rx hydralazine 25 mg tablet 25 mg PO TID #30 tabs 03/03/24 03/05/24 Rx acetaminophen 325 mg tablet 650 mg PO Q6HR #15 tabs 03/12/24 Rx fluconazole 100 mg tablet 100 mg PO QAM #11 tabs 03/12/24 Rx (Diflucan) hydrocodone 5 mg-acetaminophen 325 1 tablet PO Q4H PRN Pain Rated 4-6 03/12/24 Rx mg tablet #20 tabs rivaroxaban 10 mg tablet (Xarelto) 10 mg PO DAILY@1700 #30 tabs 03/12/24 Rx sennosides 8.6 mg-docusate sodium 2 tab PO BID #14 tabs 03/12/24 Rx 50 mg tablet (Senokot-S) tramadol 50 mg tablet 50 mg PO Q4H PRN Pain Rated 1-3 03/12/24 Rx #20 tabs Allergies Allergy/AdvReac Type Severity Reaction Status Date / Time insulin glargine Allergy Severe Swelling Verified 03/05/24 20:35 amoxicillin Allergy Unknown Unknown Verified 03/05/24 20:35 cephalexin Allergy Unknown Unknown Verified 03/07/24 09:36 doxycycline Allergy Unknown Itching Verified 03/05/24 20:35 latex Allergy Unknown Unknown Verified 03/05/24 20:35 Penicillins Allergy Unknown Unknown Verified 03/05/24 20:35 sulfamethoxazole Allergy Unknown Swelling Verified 03/05/24 20:35 sumatriptan Allergy Unknown Unknown Verified 03/05/24 20:35 trazodone Allergy Unknown Swelling Verified 03/05/24 20:35 trimethoprim Allergy Unknown Swelling Verified 03/05/24 20:35 clindamycin Allergy Unknown Verified 03/05/24 20:35 Vital Signs Vital Signs Temp Pulse Resp BP Pulse Ox O2 Del Method FiO2 02/28/24 10:09 88 16 02/28/24 10:03 98.1 F 73 16 149/73 H 100 Mechanical Ventilation 30 02/28/24 10:00 73 02/28/24 09:27 82 02/28/24 08:00 88 16 02/28/24 08:00 88 16 02/28/24 08:29 92 02/28/24 08:00 98.1 F 84 18 173/69 H 96 02/28/24 08:00 30 02/28/24 08:00 84 18 96 Mechanical Ventilation 02/28/24 08:00 84 02/28/24 08:01 70 18 02/28/24 07:48 82 97 Mechanical Ventilation 02/28/24 07:46 82 18 02/28/24 06:00 68 18 02/28/24 06:00 68 18 02/28/24 06:00 68 20 146/70 H 97 02/28/24 06:00 68 02/28/24 05:43 54 L 18 02/28/24 05:30 176/65 H 02/28/24 05:12 57 L 18 02/28/24 04:00 57 L 02/28/24 04:17 58 L 18 02/28/24 04:00 97.5 F L 57 L 18 154/70 H 96 02/28/24 04:00 30 02/28/24 04:00 18 96 Mechanical Ventilation 02/28/24 04:00 57 L 18 02/28/24 02:00 62 18 02/28/24 04:00 57 L 18 02/28/24 02:00 62 18 02/28/24 03:57 58 L 96 Mechanical Ventilation 02/28/24 02:00 97.8 F 62 18 137/67 100 02/28/24 02:00 62 02/28/24 02:02 61 18 02/28/24 01:46 63 100 Mechanical Ventilation 02/28/24 01:44 62 18 02/28/24 00:20 96 22 H 02/28/24 00:00 84 18 02/28/24 00:16 92 20 02/28/24 00:00 84 02/27/24 23:05 70 98 Mechanical Ventilation 02/28/24 00:00 98.5 F 84 18 134/72 100 02/28/24 00:00 84 02/28/24 00:00 30 02/28/24 00:00 18 100 Mechanical Ventilation 30 02/27/24 22:30 77 125/71 02/27/24 22:00 98.7 F 74 18 163/93 H 98 02/27/24 22:00 74 02/27/24 22:00 74 18 02/27/24 22:00 74 18 02/27/24 20:00 30 02/27/24 20:00 18 98 Mechanical Ventilation 02/27/24 20:00 98.6 F 74 19 148/70 H 98 02/27/24 20:00 74 02/27/24 21:01 74 02/27/24 20:59 67 18 02/27/24 20:59 67 18 02/27/24 20:00 69 18 02/27/24 20:00 69 18 02/27/24 20:01 79 98 Mechanical Ventilation 02/27/24 20:00 71 18 02/27/24 18:03 65 18 02/27/24 18:02 66 18 02/27/24 18:00 98.3 F 68 18 140/72 98 02/27/24 18:00 68 02/27/24 16:52 67 18 02/27/24 16:52 67 18 02/27/24 16:22 72 98 Mechanical Ventilation 02/27/24 16:00 66 18 02/27/24 16:23 68 18 02/27/24 15:00 68 18 02/27/24 13:00 71 18 02/27/24 14:00 66 18 02/27/24 16:00 98.3 F 66 18 153/74 H 97 02/27/24 16:00 66 02/27/24 16:00 66 18 97 Mechanical Ventilation 02/27/24 16:00 30 02/27/24 14:00 98.3 F 66 18 125/61 96 02/27/24 14:00 66 02/27/24 13:22 66 18 02/27/24 13:14 69 18 02/27/24 13:14 69 98 Mechanical Ventilation 30 Exam Narrative: GENERAL APPEARANCE: ill appearing female who looks older than stated age intubated/sedated and on mechanical ventilation HEENT: normocephalic, atraumatic, normal conjunctiva and sclera, nares patient NECK: no lymphadenopathy, thyromegaly, or JVD MOUTH: normal lips; ETT in place CARDIOVASCULAR: RRR, normal S1 and S2, no rub RESPIRATORY: coarse and decreased at bases ABDOMEN: soft, nontender, nondistended, positive bowel sounds present EXTREMITIES: no evidence of cyanosis, clubbing; trace edema NEUROLOGICAL: unable to assess Results Lab Results 03/03/24 05:43 03/03/24 05:43 Lab results: Most recent lab results ABG pH 7.501 (7.350-7.450) H 02/28/24 03:56 ABG pCO2 39.3 mmHg (35.0-45.0) 02/28/24 03:56 ABG pO2 67.9 mmHg (80.0-100.0) L 02/28/24 03:56 ABG HCO3 30.0 mEq/l (22.0-26.0) H 02/28/24 03:56 ABG O2 Saturation 95.0 % (95.0-100.0) 02/28/24 03:56 Calcium 8.5 mg/dL (8.4-10.2) 02/28/24 04:29 Phosphorus 3.4 mg/dL (2.5-4.5) 02/28/24 04:29 Magnesium 2.5 mg/dL (1.6-2.3) H 02/28/24 04:29
[2024-02-28] MEDS: dexmedeTOMIDine 400 MCG/100 ML 400 MCG/100 ML BAG IV CONT (10:46)
--- NOTE | 2024-02-28 11:04 | P.PNINT_ITS ---
Progress Note: A&P Assessment and Plan (1) Respiratory failure: Qualifiers: Chronicity: acute Respiratory failure complication: hypoxia Qualified Code(s): J96.01 - Acute respiratory failure with hypoxia Code(s): J96.90 - Respiratory failure, unspecified, unspecified whether with hypoxia or hypercapnia Status: Acute Assessment and Plan: 02/24/2024: Patient initially presented with nausea, vomiting, hypertensive urgency -on the night of 02/25/2024, patient had significant dyspnea, hypoxia with O2 sats in the 50s to 70 with central cyanosis, she was in impending respiratory failure -02/25/2024: Intubated on the medical floor and transferred to ICU for further management -patient currently on CMV mode of ventilation, peep of 5, 40% FiO2 -chest x-ray and ABGs reviewed -will hold diuresis today due to increase in BUN/creatinine -sedated with fentanyl and Versed infusion, maintain RASS of 0 to -2, daily SBT and SAT - Will have bedside RN decrease sedation, once she is more awake will place her on pressure support ventilation and evaluate for extubation -Precedex has been started (2) Pulmonary edema: Qualifiers: Chronicity: acute Qualified Code(s): J81.0 - Acute pulmonary edema Code(s): J81.1 - Chronic pulmonary edema Status: Acute Assessment and Plan: Pulmonary edema could be multifactorial likely related to hypertensive urgency, mitral regurg, CHF more pulmonary hypertension -patient on previous admissions was on hydralazine, losartan, amlodipine and clonidine. -will start scheduled hydralazine and amlodipine. Patient also on Coreg at this time 02/27/2024: Echocardiogram Summary 1. Left ventricular chamber dimension is normal. 2. There is mildly increased left ventricular wall thickness. 3. Left ventricular systolic function is normal, estimated at 60-65%. 4. There is no aortic valve stenosis. 5. There is no aortic valve regurgitation. 6. There is no mitral valve stenosis. 7. There is no mitral valve regurgitation. 8. The left ventricular diastolic function is grade I diastolic dysfunctio (3) Pneumonia: Qualifiers: Aspiration pneumonia type: due to gastric secretions Laterality: unspecified laterality Pneumonia type: aspiration pneumonia Code(s): J18.9 - Pneumonia, unspecified organism Status: Acute Assessment and Plan: Patient did have nausea, vomiting prior to admission, he also has been having dry heaves when she was in the hospital, sudden acute onset respiratory failure, suspect aspiration versus pulmonary edema -continue ceftriaxone, azithromycin,Flagyl -discontinue methylprednisolone (4) Acute exacerbation of CHF (congestive heart failure): Qualifiers: Heart failure type: unspecified Qualified Code(s): I50.9 - Heart failure, unspecified Code(s): I50.9 - Heart failure, unspecified Status: Acute Assessment and Plan: Patient with hypertensive urgency, pulmonary edema, hypoxemia, requiring intubation -restarted home Jardiance -hold diuresis, manage hypertension -echocardiogram this admission as above Echocardiogram 11/10/2022: Summary 1. Complete two-dimensional, color flow and Doppler transthoracic echocardiogram is performed. 2. Left ventricular chamber dimension is normal. 3. Left ventricular systolic function is normal, estimated at 55-60%. 4. There is severely increased left ventricular wall thickness. 5. The left ventricular diastolic function is grade II diastolic dysfunction. 6. Left atrial chamber dimension is mildly enlarged. 7. There is moderate mitral valve regurgitation. 8. The mitral valve has thickened leaflets. 9. Mild pulmonary hypertension, estimated pulmonary arterial systolic pressure is 44 mmHg (5) Acute kidney injury: Code(s): N17.9 - Acute kidney failure, unspecified Status: Acute Assessment and Plan: Acute on chronic kidney disease, could be related congestive changes, hypertension, diabetes, chronic kidney disease -patient has been diuresing well -will hold diuresis his elevated BUN and creatinine -nephrology has been consulted -monitor urine output, renal function electrolytes 02/27: Renal ultrasound showed a couple of nonobstructing left renal stones, no hydronephrosis in either kidney (6) History of diabetes mellitus: Code(s): Z86.39 - Personal history of other endocrine, nutritional and metabolic disease Status: Acute Assessment and Plan: Continue Accu-Cheks and sliding scale insulin, continue Lantus -hemoglobin A1c was 7.3 this admission (7) Hypertensive urgency: Code(s): I16.0 - Hypertensive urgency Status: Acute Assessment and Plan: Hypertensive urgency, blood pressures have improved -will continue to monitor -increase Coreg, -added scheduled hydralazine, amlodipine, with improvement in blood pressure -p.r.n. hydralazine (8) Nausea & vomiting: Qualifiers: Vomiting type: unspecified Qualified Code(s): R11.2 - Nausea with vomiting, unspecified Code(s): R11.2 - Nausea with vomiting, unspecified Status: Acute Assessment and Plan: No episodes of nausea or vomiting while she was in the hospital but reported dry heaves and nausea on 02/25/2024 -tolerating tube feeds (9) Mitral regurgitation: Code(s): I34.0 - Nonrheumatic mitral (valve) insufficiency Status: Acute Assessment and Plan: History of moderate mitral valve regurgitation on echocardiogram done in October of 2002 Echocardiogram as above Plan DVT prophylaxis: Lovenox Stress ulcer prophylaxis: Protonix Nutrition: Tolerating tube feeds Code Status: Full code Critical Care Time Spent: 34 minutes Discussed with patient's sister, Cece, over the phone. This sister stated that the patient lives with her but is noncompliant with her medications. I updated Karen the with the patient's condition and plan of care, answered all questions Due to a high probability of clinically significant, life threatening deterioration, the patient required my highest level of preparedness to intervene emergently and I personally spent this critical care time directly and personally managing the patient. This critical care time included obtaining a history; examining the patient; pulse oximetry; ordering and review of studies; arranging urgent treatment with development of a management plan; evaluation of patient's response to treatment; frequent reassessment; and discussions with other providers. It was exclusive of separately billable procedures and treating other patients and teaching time. Please see Assessment and Plan section and the rest of the note for further information on patient assessment and treatment This dictation may have been done utilizing a voice recognition system. Attempts have been made to correct errors. However, there may be uncorrected grammatical, spelling, and recognitions errors present. Subjective Date/time seen: 02/28/24 11:04 Interval history: Reason for consult: Acute respiratory failure, possible aspiration, pulmonary edema, pneumonia 02/28/2024: Patient seen and examined the ICU, remains intubated on CMV mode of ventilation, peep of 5, 30% FiO2, sedated with fentanyl Versed infusion. Patient has had elevated blood pressures requiring p.r.n. hydralazine. Urine output has been good. Afebrile. Tolerating tube feeds, positive bowel movement. Patient opens her eyes but does not follow simple commands Review of Systems Review of Systems: ROS unobtainable: Yes unobtainable due to endotracheal tube and unobtainable due to medical condition Exam Narrative: General: Intubated and sedated HEENT:? Pupils equal and reactive, sclerae is clear, ETT in place Neck:? Supple Respiratory:? Coarse breath sounds bilaterally, decreased at bases, no wheezing Cardiac:? S1-S2 normal, regular rate and rhythm Abdomen:? Soft, nontender, nondistended, hypoactive bowel sounds Extremities:? Trace ankle and foot edema, palpable pedal pulses Neuro:? Intubated, sedated, patient opens her eyes to name but does not follow simple commands this morning. Withdraws to pain, Skin:? Warm and dry Psych:? Unable to assess this time Objective Data Vital Signs Vital Signs: Vital Signs - 24 hr 02/27/24 12:00 02/27/24 12:00 02/27/24 12:00 Temperature 98.4 F Pulse Rate 79 79 Respiratory Rate 18 Blood Pressure 150/75 H Pulse Oximetry 100 Oxygen Delivery Fraction of Inspired Oxygen 02/27/24 12:00 02/27/24 12:00 02/27/24 12:23 Temperature Pulse Rate 79 79 82 Respiratory Rate 18 18 22 H Blood Pressure Pulse Oximetry 100 Oxygen Delivery Mechanical Ventilation Fraction of Inspired Oxygen 02/27/24 13:14 02/27/24 13:14 02/27/24 13:22 Temperature Pulse Rate 69 69 66 Respiratory Rate 18 18 Blood Pressure Pulse Oximetry 98 Oxygen Delivery Mechanical Ventilation Fraction of Inspired Oxygen 02/27/24 14:00 02/27/24 14:00 02/27/24 16:00 Temperature 98.3 F Pulse Rate 66 66 Respiratory Rate 18 Blood Pressure 125/61 Pulse Oximetry 96 Oxygen Delivery Fraction of Inspired Oxygen 02/27/24 16:00 02/27/24 16:00 02/27/24 16:00 Temperature 98.3 F Pulse Rate 66 66 66 Respiratory Rate 18 18 Blood Pressure 153/74 H Pulse Oximetry 97 97 Oxygen Delivery Mechanical Ventilation Fraction of Inspired Oxygen 02/27/24 14:00 02/27/24 13:00 02/27/24 15:00 Temperature Pulse Rate 66 71 68 Respiratory Rate 18 18 18 Blood Pressure Pulse Oximetry Oxygen Delivery Fraction of Inspired Oxygen 02/27/24 16:23 02/27/24 16:00 02/27/24 16:22 Temperature Pulse Rate 68 66 72 Respiratory Rate 18 18 Blood Pressure Pulse Oximetry 98 Oxygen Delivery Mechanical Ventilation Fraction of Inspired Oxygen 30 02/27/24 16:52 02/27/24 16:52 02/27/24 18:00 Temperature Pulse Rate 67 67 68 Respiratory Rate 18 18 Blood Pressure Pulse Oximetry Oxygen Delivery Fraction of Inspired Oxygen 02/27/24 18:00 02/27/24 18:02 02/27/24 18:03 Temperature 98.3 F Pulse Rate 68 66 65 Respiratory Rate 18 18 18 Blood Pressure 140/72 Pulse Oximetry 98 Oxygen Delivery Fraction of Inspired Oxygen 02/27/24 20:00 02/27/24 20:01 02/27/24 20:00 Temperature Pulse Rate 71 79 69 Respiratory Rate 18 18 Blood Pressure Pulse Oximetry 98 Oxygen Delivery Mechanical Ventilation Fraction of Inspired Oxygen 30 02/27/24 20:00 02/27/24 20:59 02/27/24 20:59 Temperature Pulse Rate 69 67 67 Respiratory Rate 18 18 18 Blood Pressure Pulse Oximetry Oxygen Delivery Fraction of Inspired Oxygen 02/27/24 21:01 02/27/24 20:00 02/27/24 20:00 Temperature 98.6 F Pulse Rate 74 74 74 Respiratory Rate 19 Blood Pressure 148/70 H Pulse Oximetry 98 Oxygen Delivery Fraction of Inspired Oxygen 02/27/24 20:00 02/27/24 20:00 02/27/24 22:00 Temperature Pulse Rate 74 Respiratory Rate 18 18 Blood Pressure Pulse Oximetry 98 Oxygen Delivery Mechanical Ventilation Fraction of Inspired Oxygen 30 30 02/27/24 22:00 02/27/24 22:00 02/27/24 22:00 Temperature 98.7 F Pulse Rate 74 74 74 Respiratory Rate 18 18 Blood Pressure 163/93 H Pulse Oximetry 98 Oxygen Delivery Fraction of Inspired Oxygen 02/27/24 22:30 02/28/24 00:00 02/28/24 00:00 Temperature Pulse Rate 77 Respiratory Rate 18 Blood Pressure 125/71 Pulse Oximetry 100 Oxygen Delivery Mechanical Ventilation Fraction of Inspired Oxygen 30 30 02/28/24 00:00 02/28/24 00:00 02/27/24 23:05 Temperature 98.5 F Pulse Rate 84 84 70 Respiratory Rate 18 Blood Pressure 134/72 Pulse Oximetry 100 98 Oxygen Delivery Mechanical Ventilation Fraction of Inspired Oxygen 30 02/28/24 00:00 02/28/24 00:16 02/28/24 00:00 Temperature Pulse Rate 84 92 84 Respiratory Rate 18 20 18 Blood Pressure Pulse Oximetry Oxygen Delivery Fraction of Inspired Oxygen 02/28/24 00:20 02/28/24 01:44 02/28/24 01:46 Temperature Pulse Rate 96 62 63 Respiratory Rate 22 H 18 Blood Pressure Pulse Oximetry 100 Oxygen Delivery Mechanical Ventilation Fraction of Inspired Oxygen 30 02/28/24 02:02 02/28/24 02:00 02/28/24 02:00 Temperature 97.8 F Pulse Rate 61 62 62 Respiratory Rate 18 18 Blood Pressure 137/67 Pulse Oximetry 100 Oxygen Delivery Fraction of Inspired Oxygen 02/28/24 03:57 02/28/24 02:00 02/28/24 04:00 Temperature Pulse Rate 58 L 62 57 L Respiratory Rate 18 18 Blood Pressure Pulse Oximetry 96 Oxygen Delivery Mechanical Ventilation Fraction of Inspired Oxygen 30 02/28/24 02:00 02/28/24 04:00 02/28/24 04:00 Temperature Pulse Rate 62 57 L Respiratory Rate 18 18 18 Blood Pressure Pulse Oximetry 96 Oxygen Delivery Mechanical Ventilation Fraction of Inspired Oxygen 30 02/28/24 04:00 02/28/24 04:00 02/28/24 04:17 Temperature 97.5 F L Pulse Rate 57 L 58 L Respiratory Rate 18 18 Blood Pressure 154/70 H Pulse Oximetry 96 Oxygen Delivery Fraction of Inspired Oxygen 30 02/28/24 04:00 02/28/24 05:12 02/28/24 05:30 Temperature Pulse Rate 57 L 57 L Respiratory Rate 18 Blood Pressure 176/65 H Pulse Oximetry Oxygen Delivery Fraction of Inspired Oxygen 02/28/24 05:43 02/28/24 06:00 02/28/24 06:00 Temperature Pulse Rate 54 L 68 68 Respiratory Rate 18 20 Blood Pressure 146/70 H Pulse Oximetry 97 Oxygen Delivery Fraction of Inspired Oxygen 02/28/24 06:00 02/28/24 06:00 02/28/24 07:46 Temperature Pulse Rate 68 68 82 Respiratory Rate 18 18 18 Blood Pressure Pulse Oximetry Oxygen Delivery Fraction of Inspired Oxygen 02/28/24 07:48 02/28/24 08:01 02/28/24 08:00 Temperature Pulse Rate 82 70 84 Respiratory Rate 18 Blood Pressure Pulse Oximetry 97 Oxygen Delivery Mechanical Ventilation Fraction of Inspired Oxygen 30 02/28/24 08:00 02/28/24 08:00 02/28/24 08:00 Temperature 98.1 F Pulse Rate 84 84 Respiratory Rate 18 18 Blood Pressure 173/69 H Pulse Oximetry 96 96 Oxygen Delivery Mechanical Ventilation Fraction of Inspired Oxygen 30 30 02/28/24 08:29 02/28/24 08:00 02/28/24 08:00 Temperature Pulse Rate 92 88 88 Respiratory Rate 16 16 Blood Pressure Pulse Oximetry Oxygen Delivery Fraction of Inspired Oxygen 02/28/24 09:27 02/28/24 10:03 02/28/24 10:00 Temperature Pulse Rate 82 78 73 Respiratory Rate Blood Pressure Pulse Oximetry 99 Oxygen Delivery Mechanical Ventilation Fraction of Inspired Oxygen 30 02/28/24 10:00 02/28/24 10:09 02/28/24 10:00 Temperature 98.1 F Pulse Rate 73 88 88 Respiratory Rate 16 16 16 Blood Pressure 149/73 H Pulse Oximetry 100 Oxygen Delivery Fraction of Inspired Oxygen 02/28/24 10:46 Temperature Pulse Rate 70 Respiratory Rate 16 Blood Pressure Pulse Oximetry Oxygen Delivery Fraction of Inspired Oxygen Intake/Output Intake/Output: Intake & Output 02/25/24 02/26/24 02/27/24 02/28/24 23:59 23:59 23:59 23:59 Intake Total 4433.7 1069.6 1776.5 665.4 Output Total 2450 2500 1200 650 Balance 1983.7 -1430.4 576.5 15.4 Meds/Results Medications: Active Medications Generic Name Dose Route Start Last Admin Trade Name Freq PRN Reason Stop Dose Admin Acetaminophen 650 mg 02/25/24 10:29 Acetaminophen 325 Mg Tablet PO Q6H PRN Mild Pain (1-3) or Fever Albuterol 2.5 mg 02/25/24 21:20 Albuterol Sulfate Neb 2.5 Mg/3 Ml Inh INHALATION Q6HRT PRN Shortness Of Breath Albuterol/Ipratropium 3 ml 02/26/24 02:00 02/28/24 07:46 Ipratropium 0.5 Mg/Albuterol Sulfate 2.5 Mg Ampul.Neb 3 Ml INHALATION 3 ml Q6HRT JAQUI Administration Amlodipine Besylate 10 mg 02/28/24 09:00 02/28/24 09:27 Amlodipine Besylate 10 Mg Tablet PO 10 mg DAILY JAQUI Administration Aspirin 81 mg 02/24/24 09:00 02/28/24 08:29 Aspirin 81 Mg Chewable Tablet PO 81 mg DAILY JAQUI Administration Carvedilol 25 mg 02/28/24 21:00 Carvedilol 25 Mg Tablet PO Q12HR JAQUI Dextrose 12.5 gm 02/26/24 04:22 Dextrose 50% 25 Gm/50 Ml Syringe IV PUSH PRN PRN Hypoglycemia Protocol Empagliflozin 10 mg 02/27/24 09:00 02/28/24 08:30 Empagliflozin 10 Mg Tablet PO 10 mg DAILY JAQUI Administration Enoxaparin Sodium 40 mg 02/27/24 09:00 02/28/24 08:30 Enoxaparin 40 Mg/0.4 Ml Syringe SUB-Q 40 mg DAILY JAQUI Administration Glucagon 1 mg 02/26/24 04:22 Glucagon For Inj 1 Mg Vial IM PRN PRN Hypoglycemia Protocol Glucose 15 gm 02/26/24 04:22 Glucose Oral Gel 15 Gm Of Glucse In 37.5 Gm Tube PO PRN PRN Hypoglycemia Protocol Hydralazine HCl 10 mg 02/26/24 07:49 02/28/24 08:47 Hydralazine Hcl 20 Mg/Ml Vial IV PUSH 10 mg Q4H PRN Administration Blood Pressure - High Hydralazine HCl 25 mg 02/28/24 12:00 Hydralazine Hcl 25 Mg Tablet PO WMHS JAQUI Ceftriaxone Sodium 2 gm in 100 mls @ 200 mls/hr 02/25/24 21:00 02/27/24 22:16 Rocephin 2 Gm/Ns 100 Ml IVPB Infused Q24H JAQUI Infusion Azithromycin 500 mg in 250 mls @ 250 mls/hr 02/25/24 22:00 02/27/24 22:16 Zithromax IVPB Infused Q24H JAQUI Infusion Fentanyl Citrate 2,500 mcg in 250 mls @ 10 mls/hr 02/26/24 00:35 02/28/24 10:00 Fentanyl 2,500 Mcg/Ns 250 Ml IV CONT 100 mcg/hr .Q25H JAQUI 10 mls/hr Titration Protocol 100 MCG/HR Midazolam HCl 100 mg in 100 mls @ 4 mls/hr 02/26/24 00:35 02/28/24 10:09 Versed 100 Mg/Ns 100 Ml IV CONT 4 mg/hr .Q25H JAQUI 4 mls/hr Titration Protocol 4 MG/HR Dextrose 1,000 mls @ 100 mls/hr 02/26/24 04:22 Dextrose 5% 1,000 Ml IVPB PRN PRN Hypoglycemia Protocol Metronidazole 500 mg in 100 mls @ 100 mls/hr 02/26/24 08:00 02/28/24 05:18 Flagyl 500 Mg/Iso Soln 100 Ml IVPB 100 mls/hr Q8HR JAQUI Administration Dexmedetomidine HCl 400 mcg in 100 mls @ 3.29 mls/hr 02/28/24 10:25 02/28/24 10:46 Precedex 400 Mcg/100 Ml IV CONT 0.2 mcg/kg/hr .[id number] JAQUI 3.29 mls/hr Administration Protocol 0.2 MCG/KG/HR Insulin Aspart 4 - 8 units 02/26/24 12:00 02/28/24 05:12 Insulin Aspart (*Bkc) 100 Units/Ml SUB-Q Not Given Q6HR [facility] Protocol Insulin Glargine 15 units 02/27/24 09:00 02/28/24 08:32 Insulin Glargine (*Bkc) 100 Units/Ml SUB-Q 15 units DAILY JAQUI Administration Labetalol HCl 10 mg 02/25/24 21:30 02/25/24 22:18 Labetalol Hcl Inj 100 Mg/20 Ml Vial IV PUSH 10 mg Q12HR JAQUI Administration Methylprednisolone Sodium Succinate 40 mg 02/28/24 06:00 02/28/24 05:18 Methylprednisolone Sod Succ 40 Mg Vial IV PUSH 03/01/24 05:59 40 mg Q8H JAQUI Administration Multi-Ingred Cream/Lotion/Oil/Oint 1 applic 02/26/24 09:00 02/28/24 08:30 Mineral Oil/White Petrolatum Ointment EACH EYE 1 applic Q12HR JAQUI Administration Nicotine 1 patch 02/26/24 09:00 02/28/24 08:30 Nicotine (*Pbkc) 21 Mg Patch TRANSDERM Not Given DAILY [facility] Ondansetron HCl 4 mg 02/25/24 20:59 Ondansetron Inj 4 Mg/2 Ml Vial IV PUSH Q6H PRN Nausea And Vomiting Pantoprazole Sodium 40 mg 02/26/24 09:00 02/28/24 08:31 Pantoprazole Sodium Iv 40 Mg Vial IV PUSH 40 mg Q12HR JAQUI Administration Sitagliptin Phosphate 100 mg 02/24/24 09:00 02/25/24 08:48 Sitagliptin Phosphate 100 Mg Tablet PO 100 mg DAILY JAQUI Administration Radiology Results: ITS Impressions Head CT 02/23/24 23:50 IMPRESSION: 1. 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 2. Stable extensive nonspecific cerebral white matter disease, which likely represents chronic small vessel ischemic disease. Abdomen/Pelvis CT 02/23/24 23:52 IMPRESSION: 1. No etiology for the patient's symptoms. Abdomen X-Ray 02/25/24 21:52 IMPRESSION: 1. Nasogastric tube in stomach. 2. Mild pulmonary edema. Chest X-Ray 02/28/24 06:51 Impression: Support tubes, as above. Suspected retrocardiac airspace disease. Correlate for atelectasis or pneumonia. Renal Ultrasound 02/28/24 10:53 IMPRESSION: 1. A couple nonobstructing left renal stones. No hydronephrosis in either kidney. Labs Labs: Laboratory Results - last 24 hr 02/27/24 02/27/24 02/27/24 11:33 16:56 20:57 WBC RBC Hgb Hct MCV MCH MCHC RDW Plt Count MPV Immature Gran % (Auto) Neut % (Auto) Lymph % (Auto) [place] % (Auto) Eos % (Auto) Baso % (Auto) Lymph # (Auto) [place] # (Auto) Eos # (Auto) Baso # (Auto) Abs Immat Gran (auto) Absolute Neuts (auto) Absolute Nucleated RBC Nucleated RBC % Puncture Site ABG pH ABG pCO2 ABG pO2 ABG PO2/FiO2 Ratio ABG HCO3 ABG O2 Saturation ABG O2 Content ABG Base Excess A-a Gradient Oxyhemoglobin Carboxyhemoglobin Methemoglobin Reduced Hemoglobin Total Hemoglobin O2 Delivery Device O2 Liters/Min Minute Volume Vent Rate Vent Mode FiO2 Tidal Volume PEEP Peak Inspir Pressure Pressure Support Sodium Potassium Chloride Carbon Dioxide Anion Gap BUN Creatinine Estim Creat Clear Calc Estimated GFR Glucose POC Capillary Glucose 193 H 183 H 204 H Calcium Phosphorus Magnesium Total Bilirubin AST ALT Alkaline Phosphatase Total Protein Albumin Triglycerides 02/27/24 02/28/24 02/28/24 22:16 00:14 03:56 WBC RBC Hgb Hct MCV MCH MCHC RDW Plt Count MPV Immature Gran % (Auto) Neut % (Auto) Lymph % (Auto) [place] % (Auto) Eos % (Auto) Baso % (Auto) Lymph # (Auto) [place] # (Auto) Eos # (Auto) Baso # (Auto) Abs Immat Gran (auto) Absolute Neuts (auto) Absolute Nucleated RBC Nucleated RBC % Puncture Site Right brachial ABG pH 7.501 H ABG pCO2 39.3 ABG pO2 67.9 L ABG PO2/FiO2 Ratio 2.26 ABG HCO3 30.0 H ABG O2 Saturation 95.0 ABG O2 Content 16.4 ABG Base Excess 6.4 A-a Gradient 99.8 Oxyhemoglobin 93.8 Carboxyhemoglobin 0.4 Methemoglobin 0.1 Reduced Hemoglobin 5.7 H Total Hemoglobin 12.4 O2 Delivery Device Ventilator O2 Liters/Min Not Reportable Minute Volume Not Reportable Vent Rate 18 Vent Mode Cmv FiO2 30 Tidal Volume 400 PEEP 5 Peak Inspir Pressure Not Reportable Pressure Support Not Reportable Sodium Potassium Chloride Carbon Dioxide Anion Gap BUN Creatinine Estim Creat Clear Calc Estimated GFR Glucose POC Capillary Glucose 169 H Calcium Phosphorus Magnesium Total Bilirubin AST ALT Alkaline Phosphatase Total Protein Albumin Triglycerides 191 H 02/28/24 04:29 WBC 16.2 H RBC 4.37 Hgb 12.6 Hct 39.3 MCV 89.9 MCH 28.8 MCHC 32.1 RDW 13.9 Plt Count 184 MPV 12.7 H Immature Gran % (Auto) 0.9 H Neut % (Auto) 76.9 H Lymph % (Auto) 17.2 L [place] % (Auto) 4.9 Eos % (Auto) 0.0 Baso % (Auto) 0.1 L Lymph # (Auto) 2.80 [place] # (Auto) 0.8 H Eos # (Auto) 0.0 Baso # (Auto) 0.0 Abs Immat Gran (auto) 0.15 H Absolute Neuts (auto) 12.5 H Absolute Nucleated RBC 0.000 Nucleated RBC % 0.0 Puncture Site ABG pH ABG pCO2 ABG pO2 ABG PO2/FiO2 Ratio ABG HCO3 ABG O2 Saturation ABG O2 Content ABG Base Excess A-a Gradient Oxyhemoglobin Carboxyhemoglobin Methemoglobin Reduced Hemoglobin Total Hemoglobin O2 Delivery Device O2 Liters/Min Minute Volume Vent Rate Vent Mode FiO2 Tidal Volume PEEP Peak Inspir Pressure Pressure Support Sodium 149 H Potassium 3.6 Chloride 109 H Carbon Dioxide 30 Anion Gap 10 BUN 59 H D Creatinine 1.80 H Estim Creat Clear Calc 28 Estimated GFR 29 L Glucose 147 H POC Capillary Glucose Calcium 8.5 Phosphorus 3.4 Magnesium 2.5 H Total Bilirubin 0.3 AST 16 ALT 16 Alkaline Phosphatase 67 Total Protein 7.0 Albumin 3.4 L Triglycerides Quality VTE Prophylaxis VTE prophylaxis: pharmacologic ordered
[2024-02-28 11:53] LABS: Glucose Point of Care 237 mg/dl (65-105)
[2024-02-28] MEDS: INSULIN ASPART (*BKC) 100 UNITS/ML SUB-Q ×2 (11:53→23:55)
--- NOTE | 2024-02-28 12:14 | PCNFU ---
Nutrition Follow-Up Complete: Severe protein calorie malnutrition related to chronic loss of appetite, post CVA as evidenced by inadequate intake <75% needs >1 month; chronic muscle wasting and fat loss. Goal: Adequate PO intake at least 75% meals and supplements Patient is not meeting goal. We will continue current goal. Pt current nutrition is Glucerna 1.2 at 40 ml/hr. Nutrition recommendation: 60 ml/hr for goal rate. Last recorded weight is 65.8 kg, up from 62.9 kg on admit. Bowel Motility: +BM reported 02/27 Labs Reviewed:Mg 2.5,BUN 59, GFR 29, Glu 147, Cr 1.8, Na 149 Meds Noted:Precedex, Versed, Fentanyl, Coreg, Jardiance. Skin: WNL Additional Notes: Patient intubated 02/24. Tube feedings started of Glucerna 1.2 at 40 ml/hr and tolerating per nursing. Flush 30 ml q 4 hours. Discussed in rounds recommending increasing goal rate to 60 ml/hr. Total nutrition at 60 ml/hr: 1584 kcal/79 gm protein/1063 ml water. Meeting 100% kcal needs at 25 kcal/kg and 1.2-1.4 gm/kg of protein. Agree with diet orders. Monitoring intakes, weights, labs, supplement tolerance, plan of care Follow up in 5 days
--- NOTE | 2024-02-28 16:26 | P.PNIM_ITS ---
Progress Note: A&P Assessment and Plan (1) Respiratory failure: Qualifiers: Chronicity: acute Respiratory failure complication: hypoxia Qualified Code(s): J96.01 - Acute respiratory failure with hypoxia Code(s): J96.90 - Respiratory failure, unspecified, unspecified whether with hypoxia or hypercapnia Status: Acute Assessment and Plan: 02/24/2024: Patient initially presented with nausea, vomiting, hypertensive urgency -on the night of 02/25/2024, patient had significant dyspnea, hypoxia with O2 sats in the 50s to 70 with central cyanosis, she was in impending respiratory failure -02/25/2024: Intubated on the medical floor and transferred to ICU for further management -patient currently on CMV mode of ventilation, peep of 5, 40% FiO2 -chest x-ray and ABGs reviewed -will hold diuresis today due to increase in BUN/creatinine -sedated with fentanyl and Versed infusion, maintain RASS of 0 to -2, daily SBT and SAT - Will have bedside RN decrease sedation, once she is more awake will place her on pressure support ventilation and evaluate for extubation -Precedex has been started (2) Pulmonary edema: Qualifiers: Chronicity: acute Qualified Code(s): J81.0 - Acute pulmonary edema Code(s): J81.1 - Chronic pulmonary edema Status: Acute Assessment and Plan: Pulmonary edema could be multifactorial likely related to hypertensive urgency, mitral regurg, CHF more pulmonary hypertension -patient on previous admissions was on hydralazine, losartan, amlodipine and clonidine. -will start scheduled hydralazine and amlodipine. Patient also on Coreg at this time 02/27/2024: Echocardiogram Summary 1. Left ventricular chamber dimension is normal. 2. There is mildly increased left ventricular wall thickness. 3. Left ventricular systolic function is normal, estimated at 60-65%. 4. There is no aortic valve stenosis. 5. There is no aortic valve regurgitation. 6. There is no mitral valve stenosis. 7. There is no mitral valve regurgitation. 8. The left ventricular diastolic function is grade I diastolic dysfunctio (3) Pneumonia: Qualifiers: Pneumonia type: aspiration pneumonia Aspiration pneumonia type: due to gastric secretions Laterality: unspecified laterality Code(s): J18.9 - Pneumonia, unspecified organism Status: Acute Assessment and Plan: Patient did have nausea, vomiting prior to admission, he also has been having dry heaves when she was in the hospital, sudden acute onset respiratory failure, suspect aspiration versus pulmonary edema -continue ceftriaxone, azithromycin,Flagyl -discontinue methylprednisolone (4) Acute exacerbation of CHF (congestive heart failure): Qualifiers: Heart failure type: unspecified Qualified Code(s): I50.9 - Heart failure, unspecified Code(s): I50.9 - Heart failure, unspecified Status: Acute Assessment and Plan: Patient with hypertensive urgency, pulmonary edema, hypoxemia, requiring intubation -restarted home Jardiance -hold diuresis, manage hypertension -echocardiogram this admission as above Echocardiogram 11/10/2022: Summary 1. Complete two-dimensional, color flow and Doppler transthoracic echocardiogram is performed. 2. Left ventricular chamber dimension is normal. 3. Left ventricular systolic function is normal, estimated at 55-60%. 4. There is severely increased left ventricular wall thickness. 5. The left ventricular diastolic function is grade II diastolic dysfunction. 6. Left atrial chamber dimension is mildly enlarged. 7. There is moderate mitral valve regurgitation. 8. The mitral valve has thickened leaflets. 9. Mild pulmonary hypertension, estimated pulmonary arterial systolic pressure is 44 mmHg (5) Acute kidney injury: Code(s): N17.9 - Acute kidney failure, unspecified Status: Acute Assessment and Plan: Acute on chronic kidney disease, could be related congestive changes, hypertension, diabetes, chronic kidney disease -patient has been diuresing well -will hold diuresis his elevated BUN and creatinine -nephrology has been consulted -monitor urine output, renal function electrolytes 02/27: Renal ultrasound showed a couple of nonobstructing left renal stones, no hydronephrosis in either kidney (6) History of diabetes mellitus: Code(s): Z86.39 - Personal history of other endocrine, nutritional and metabolic disease Status: Acute Assessment and Plan: Continue Accu-Cheks and sliding scale insulin, continue Lantus -hemoglobin A1c was 7.3 this admission (7) Hypertensive urgency: Code(s): I16.0 - Hypertensive urgency Status: Acute Assessment and Plan: Hypertensive urgency, blood pressures have improved -will continue to monitor -increase Coreg, -added scheduled hydralazine, amlodipine, with improvement in blood pressure -p.r.n. hydralazine (8) Nausea & vomiting: Qualifiers: Vomiting type: unspecified Qualified Code(s): R11.2 - Nausea with vomiting, unspecified Code(s): R11.2 - Nausea with vomiting, unspecified Status: Acute Assessment and Plan: No episodes of nausea or vomiting while she was in the hospital but reported dry heaves and nausea on 02/25/2024 -tolerating tube feeds (9) Mitral regurgitation: Code(s): I34.0 - Nonrheumatic mitral (valve) insufficiency Status: Acute Assessment and Plan: History of moderate mitral valve regurgitation on echocardiogram done in October of 2002 Echocardiogram as above Plan Plan Acute respiratory failure Patient had sudden onset respiratory distress on February 24, patient was noticed to have nausea vomiting Patient was intubated, placed on mechanical ventilation Patient was transferred to ICU for close monitoring Chronic patient still on mechanical ventilation, 50% oxygen, sedated with fentanyl and Versed infusion, maintain RASS of 0 to -2, daily SBT and SAT Acute heart failure Patient has Pulmonary edema: Pulmonary edema could be multifactorial likely related to hypertensive urgency, mitral regurg, CHF more pulmonary hypertension -continue diuresis ECHO showed EF 60-65% with grade II diastolic continue diuresis per inetensivist Pneumonia Possible aspiration pneumonia Patient did have nausea, vomiting prior to admission, he also has been having dry heaves when she was in the hospital, sudden acute onset respiratory failure, suspect aspiration versus pulmonary edema continue ceftriaxone, azithromycin, added Flagyl continue methylprednisolone for possible pneumonia acute on chronic kidney disease, could be related congestive changes -continue diuresis -monitor urine output, renal function electrolytes History of diabetes mellitus: Code(s): Z86.39 - Personal history of other endocrine, nutritional and metabolic disease Status: Acute Assessment and Plan: Continue Accu-Cheks and sliding scale insulin, added Lantus -hemoglobin A1c was 7.3 this admission Hypertensive urgency Status: Acute Assessment and Plan: Hypertensive urgency, blood pressures have improved continue to monitor Controlled Nausea & vomiting: Qualifiers: Vomiting type: unspecified Qualified Code(s): R11.2 - Nausea with vomiting, unspecified Code(s): R11.2 - Nausea with vomiting, unspecified Status: Acute Assessment and Plan: No episodes of nausea or vomiting vomiting while she was in the hospital but reported dry heaves and nausea on 02/25/2024 Mitral regurgitation: Code(s): I34.0 - Nonrheumatic mitral (valve) insufficiency Status: Acute Assessment and Plan: History of moderate mitral valve regurgitation on echocardiogram done in October of 2002 -will repeat echocardiogram to evaluate for valvular dysfunction Plan DVT prophylaxis: Lovenox Stress ulcer prophylaxis: Protonix Nutrition: tube feeds Subjective Date/time seen: 02/28/24 16:26 Interval history: 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 ROS unobtainable: Yes unobtainable due to endotracheal tube and unobtainable due to medical condition Exam Narrative: General: Intubated and sedated HEENT:? Pupils equal and reactive, sclerae is clear, ETT in place Neck:? Supple Respiratory:? Coarse breath sounds bilaterally, decreased at bases, no wheezing Cardiac:? S1-S2 normal, regular rate and rhythm Abdomen:? Soft, nontender, nondistended, hypoactive bowel sounds Extremities:? Trace ankle and foot edema, palpable pedal pulses Neuro:? Intubated, sedated, patient opens her eyes to name but does not follow simple commands this morning. Withdraws to pain, Skin:? Warm and dry Psych:? Unable to assess this time Const: Other: Disheveled, appears older than stated age, poor hygiene, no acute distress HENMT: Other: Head is normocephalic atraumatic, mucous membranes are tacky, multiple missing teeth, Eyes: Other: pupils are equal and reactive, cataracts noted Neck: Other: No JVD, no lymphadenopathy Resp: Other: Decreased breath sounds bilaterally, no increased work of breathing Cardio: Other: Regular rate, regular rhythm, 2+ bilateral radial pedal pulses, no JVD GI: Other: Soft, nondistended, positive bowel sounds, tender in the suprapubic region : Other: Incontinent of urine, depends in place Skin: Other: No jaundice, no pallor Neuro: Other: Patient is alert oriented to person, month, year, and the fact that she is in the hospital she was not unable to name the town the hospital was in but stated the appropriate city a residence, she has expressive aphasia, she moves all extremities equally but has residual right-sided weakness in seemed to have some difficulty with coordination of the right side arms more so than legs, normal tone, extraocular movements seem to be intact, if the patient initiates the sentence she has better success at speaking in full sentences but if fast directed questions she has increased difficulty with expressive aphasia Extrem: Other: Difficulty with coordination of the right upper and lower extremity, 3/[address] [place] on the right, normal tone Psych: Other: Pleasant and cooperative, Objective Data Vital Signs Vital Signs: Vital Signs - 24 hr 02/27/24 16:52 02/27/24 16:52 02/27/24 18:00 Temperature Pulse Rate 67 67 68 Respiratory Rate 18 18 Blood Pressure Pulse Oximetry Oxygen Delivery Fraction of Inspired Oxygen 02/27/24 18:00 02/27/24 18:02 02/27/24 18:03 Temperature 98.3 F Pulse Rate 68 66 65 Respiratory Rate 18 18 18 Blood Pressure 140/72 Pulse Oximetry 98 Oxygen Delivery Fraction of Inspired Oxygen 02/27/24 20:00 02/27/24 20:01 02/27/24 20:00 Temperature Pulse Rate 71 79 69 Respiratory Rate 18 18 Blood Pressure Pulse Oximetry 98 Oxygen Delivery Mechanical Ventilation Fraction of Inspired Oxygen 30 02/27/24 20:00 02/27/24 20:59 02/27/24 20:59 Temperature Pulse Rate 69 67 67 Respiratory Rate 18 18 18 Blood Pressure Pulse Oximetry Oxygen Delivery Fraction of Inspired Oxygen 02/27/24 21:01 02/27/24 20:00 02/27/24 20:00 Temperature 98.6 F Pulse Rate 74 74 74 Respiratory Rate 19 Blood Pressure 148/70 H Pulse Oximetry 98 Oxygen Delivery Fraction of Inspired Oxygen 02/27/24 20:00 02/27/24 20:00 02/27/24 22:00 Temperature Pulse Rate 74 Respiratory Rate 18 18 Blood Pressure Pulse Oximetry 98 Oxygen Delivery Mechanical Ventilation Fraction of Inspired Oxygen 30 30 02/27/24 22:00 02/27/24 22:00 02/27/24 22:00 Temperature 98.7 F Pulse Rate 74 74 74 Respiratory Rate 18 18 Blood Pressure 163/93 H Pulse Oximetry 98 Oxygen Delivery Fraction of Inspired Oxygen 02/27/24 22:30 02/28/24 00:00 02/28/24 00:00 Temperature Pulse Rate 77 Respiratory Rate 18 Blood Pressure 125/71 Pulse Oximetry 100 Oxygen Delivery Mechanical Ventilation Fraction of Inspired Oxygen 30 30 02/28/24 00:00 02/28/24 00:00 02/27/24 23:05 Temperature 98.5 F Pulse Rate 84 84 70 Respiratory Rate 18 Blood Pressure 134/72 Pulse Oximetry 100 98 Oxygen Delivery Mechanical Ventilation Fraction of Inspired Oxygen 30 02/28/24 00:00 02/28/24 00:16 02/28/24 00:00 Temperature Pulse Rate 84 92 84 Respiratory Rate 18 20 18 Blood Pressure Pulse Oximetry Oxygen Delivery Fraction of Inspired Oxygen 02/28/24 00:20 02/28/24 01:44 02/28/24 01:46 Temperature Pulse Rate 96 62 63 Respiratory Rate 22 H 18 Blood Pressure Pulse Oximetry 100 Oxygen Delivery Mechanical Ventilation Fraction of Inspired Oxygen 30 02/28/24 02:02 02/28/24 02:00 02/28/24 02:00 Temperature 97.8 F Pulse Rate 61 62 62 Respiratory Rate 18 18 Blood Pressure 137/67 Pulse Oximetry 100 Oxygen Delivery Fraction of Inspired Oxygen 02/28/24 03:57 02/28/24 02:00 02/28/24 04:00 Temperature Pulse Rate 58 L 62 57 L Respiratory Rate 18 18 Blood Pressure Pulse Oximetry 96 Oxygen Delivery Mechanical Ventilation Fraction of Inspired Oxygen 30 02/28/24 02:00 02/28/24 04:00 02/28/24 04:00 Temperature Pulse Rate 62 57 L Respiratory Rate 18 18 18 Blood Pressure Pulse Oximetry 96 Oxygen Delivery Mechanical Ventilation Fraction of Inspired Oxygen 30 02/28/24 04:00 02/28/24 04:00 02/28/24 04:17 Temperature 97.5 F L Pulse Rate 57 L 58 L Respiratory Rate 18 18 Blood Pressure 154/70 H Pulse Oximetry 96 Oxygen Delivery Fraction of Inspired Oxygen 30 02/28/24 04:00 02/28/24 05:12 02/28/24 05:30 Temperature Pulse Rate 57 L 57 L Respiratory Rate 18 Blood Pressure 176/65 H Pulse Oximetry Oxygen Delivery Fraction of Inspired Oxygen 02/28/24 05:43 02/28/24 06:00 02/28/24 06:00 Temperature Pulse Rate 54 L 68 68 Respiratory Rate 18 20 Blood Pressure 146/70 H Pulse Oximetry 97 Oxygen Delivery Fraction of Inspired Oxygen 02/28/24 06:00 02/28/24 06:00 02/28/24 07:46 Temperature Pulse Rate 68 68 82 Respiratory Rate 18 18 18 Blood Pressure Pulse Oximetry Oxygen Delivery Fraction of Inspired Oxygen 02/28/24 07:48 02/28/24 08:01 02/28/24 08:00 Temperature Pulse Rate 82 70 84 Respiratory Rate 18 Blood Pressure Pulse Oximetry 97 Oxygen Delivery Mechanical Ventilation Fraction of Inspired Oxygen 30 02/28/24 08:00 02/28/24 08:00 02/28/24 08:00 Temperature 98.1 F Pulse Rate 84 84 Respiratory Rate 18 18 Blood Pressure 173/69 H Pulse Oximetry 96 96 Oxygen Delivery Mechanical Ventilation Fraction of Inspired Oxygen 30 30 02/28/24 08:29 02/28/24 08:00 02/28/24 08:00 Temperature Pulse Rate 92 88 88 Respiratory Rate 16 16 Blood Pressure Pulse Oximetry Oxygen Delivery Fraction of Inspired Oxygen 02/28/24 09:27 02/28/24 10:03 02/28/24 10:00 Temperature Pulse Rate 82 78 73 Respiratory Rate Blood Pressure Pulse Oximetry 99 Oxygen Delivery Mechanical Ventilation Fraction of Inspired Oxygen 30 02/28/24 10:00 02/28/24 10:09 02/28/24 10:00 Temperature 98.1 F Pulse Rate 73 88 88 Respiratory Rate 16 16 16 Blood Pressure 149/73 H Pulse Oximetry 100 Oxygen Delivery Fraction of Inspired Oxygen 02/28/24 10:46 02/28/24 11:12 02/28/24 11:13 Temperature Pulse Rate 70 69 69 Respiratory Rate 16 16 16 Blood Pressure Pulse Oximetry Oxygen Delivery Fraction of Inspired Oxygen 02/28/24 11:57 02/28/24 12:00 02/28/24 12:00 Temperature Pulse Rate 66 64 64 Respiratory Rate 16 16 Blood Pressure Pulse Oximetry 95 Oxygen Delivery Mechanical Ventilation Fraction of Inspired Oxygen 30 02/28/24 12:00 02/28/24 12:00 02/28/24 12:00 Temperature 98.6 F Pulse Rate 64 61 Respiratory Rate 16 17 Blood Pressure 109/57 L Pulse Oximetry 95 Oxygen Delivery Fraction of Inspired Oxygen 30 02/28/24 12:00 02/28/24 12:00 02/28/24 13:07 Temperature Pulse Rate 61 61 64 Respiratory Rate 16 16 16 Blood Pressure Pulse Oximetry Oxygen Delivery Fraction of Inspired Oxygen 02/28/24 13:08 02/28/24 13:20 02/28/24 13:00 Temperature Pulse Rate 63 63 62 Respiratory Rate 16 16 Blood Pressure Pulse Oximetry 97 Oxygen Delivery Mechanical Ventilation Fraction of Inspired Oxygen 30 02/28/24 13:00 02/28/24 13:00 02/28/24 14:00 Temperature Pulse Rate 62 62 61 Respiratory Rate 16 16 Blood Pressure Pulse Oximetry Oxygen Delivery Fraction of Inspired Oxygen 02/28/24 14:00 02/28/24 14:39 02/28/24 14:00 Temperature 98.2 F Pulse Rate 61 63 63 Respiratory Rate 16 16 16 Blood Pressure 119/62 Pulse Oximetry 98 Oxygen Delivery Fraction of Inspired Oxygen 02/28/24 15:00 02/28/24 14:00 Temperature Pulse Rate 66 63 Respiratory Rate 16 16 Blood Pressure Pulse Oximetry Oxygen Delivery Fraction of Inspired Oxygen Intake/Output Intake/Output: Intake & Output 02/25/24 02/26/24 02/27/24 02/28/24 23:59 23:59 23:59 23:59 Intake Total 4433.7 1069.6 1776.5 830.3 Output Total 2450 2500 1200 650 Balance 1983.7 -1430.4 576.5 180.3 Meds/Results Medications: Active Medications Generic Name Dose Route Start Last Admin Trade Name Freq PRN Reason Stop Dose Admin Acetaminophen 650 mg 02/25/24 10:29 Acetaminophen 325 Mg Tablet PO Q6H PRN Mild Pain (1-3) or Fever Albuterol 2.5 mg 02/25/24 21:20 Albuterol Sulfate Neb 2.5 Mg/3 Ml Inh INHALATION Q6HRT PRN Shortness Of Breath Albuterol/Ipratropium 3 ml 02/26/24 02:00 02/28/24 13:06 Ipratropium 0.5 Mg/Albuterol Sulfate 2.5 Mg Ampul.Neb 3 Ml INHALATION 3 ml Q6HRT JAQUI Administration Amlodipine Besylate 10 mg 02/28/24 09:00 02/28/24 09:27 Amlodipine Besylate 10 Mg Tablet PO 10 mg DAILY JAQUI Administration Aspirin 81 mg 02/24/24 09:00 02/28/24 08:29 Aspirin 81 Mg Chewable Tablet PO 81 mg DAILY JAQUI Administration Carvedilol 25 mg 02/28/24 21:00 Carvedilol 25 Mg Tablet PO Q12HR [facility] Dextrose 12.5 gm 02/26/24 04:22 Dextrose 50% 25 Gm/50 Ml Syringe IV PUSH PRN PRN Hypoglycemia Protocol Empagliflozin 10 mg 02/27/24 09:00 02/28/24 08:30 Empagliflozin 10 Mg Tablet PO 10 mg DAILY JAQUI Administration Enoxaparin Sodium 40 mg 02/27/24 09:00 02/28/24 08:30 Enoxaparin 40 Mg/0.4 Ml Syringe SUB-Q 40 mg DAILY JAQUI Administration Glucagon 1 mg 02/26/24 04:22 Glucagon For Inj 1 Mg Vial IM PRN PRN Hypoglycemia Protocol Glucose 15 gm 02/26/24 04:22 Glucose Oral Gel 15 Gm Of Glucse In 37.5 Gm Tube PO PRN PRN Hypoglycemia Protocol Hydralazine HCl 10 mg 02/26/24 07:49 02/28/24 08:47 Hydralazine Hcl 20 Mg/Ml Vial IV PUSH 10 mg Q4H PRN Administration Blood Pressure - High Hydralazine HCl 25 mg 02/28/24 12:00 02/28/24 12:31 Hydralazine Hcl 25 Mg Tablet PO Not Given [facility] JAQUI Ceftriaxone Sodium 2 gm in 100 mls @ 200 mls/hr 02/25/24 21:00 02/27/24 22:16 Rocephin 2 Gm/Ns 100 Ml IVPB Infused Q24H JAQUI Infusion Azithromycin 500 mg in 250 mls @ 250 mls/hr 02/25/24 22:00 02/27/24 22:16 Zithromax IVPB Infused Q24H JAQUI Infusion Fentanyl Citrate 2,500 mcg in 250 mls @ 2.5 mls/hr 02/26/24 00:35 02/28/24 14:00 Fentanyl 2,500 Mcg/Ns 250 Ml IV CONT 25 mcg/hr .Q72H JAQUI 2.5 mls/hr Titration Protocol 25 MCG/HR Midazolam HCl 100 mg in 100 mls @ 1 mls/hr 02/26/24 00:35 02/28/24 14:00 Versed 100 Mg/Ns 100 Ml IV CONT 1 mg/hr .Q72H JAQUI 1 mls/hr Titration Protocol 1 MG/HR Dextrose 1,000 mls @ 100 mls/hr 02/26/24 04:22 Dextrose 5% 1,000 Ml IVPB PRN PRN Hypoglycemia Protocol Metronidazole 500 mg in 100 mls @ 100 mls/hr 02/26/24 08:00 02/28/24 14:03 Flagyl 500 Mg/Iso Soln 100 Ml IVPB 100 mls/hr Q8HR JAQUI Administration Dexmedetomidine HCl 400 mcg in 100 mls @ 9.87 mls/hr 02/28/24 10:25 02/28/24 15:00 Precedex 400 Mcg/100 Ml IV CONT 0.6 mcg/kg/hr .Q10H8M JAQUI 9.87 mls/hr Titration Protocol 0.6 MCG/KG/HR Insulin Aspart 4 - 8 units 02/26/24 12:00 02/28/24 11:53 Insulin Aspart (*Bkc) 100 Units/Ml SUB-Q 4 units Q6HR JAQUI Administration Protocol Insulin Glargine 15 units 02/27/24 09:00 02/28/24 08:32 Insulin Glargine (*Bkc) 100 Units/Ml SUB-Q 15 units DAILY JAQUI Administration Labetalol HCl 10 mg 02/25/24 21:30 02/25/24 22:18 Labetalol Hcl Inj 100 Mg/20 Ml Vial IV PUSH 10 mg Q12HR JAQUI Administration Methylprednisolone Sodium Succinate 40 mg 02/28/24 06:00 02/28/24 14:03 Methylprednisolone Sod Succ 40 Mg Vial IV PUSH 03/01/24 05:59 40 mg Q8H JAQUI Administration Multi-Ingred Cream/Lotion/Oil/Oint 1 applic 02/26/24 09:00 02/28/24 08:30 Mineral Oil/White Petrolatum Ointment EACH EYE 1 applic Q12HR JAQUI Administration Nicotine 1 patch 02/26/24 09:00 02/28/24 08:30 Nicotine (*Pbkc) 21 Mg Patch TRANSDERM Not Given DAILY JAQUI Ondansetron HCl 4 mg 02/25/24 20:59 Ondansetron Inj 4 Mg/2 Ml Vial IV PUSH Q6H PRN Nausea And Vomiting Pantoprazole Sodium 40 mg 02/26/24 09:00 02/28/24 08:31 Pantoprazole Sodium Iv 40 Mg Vial IV PUSH 40 mg Q12HR JAQUI Administration Sitagliptin Phosphate 100 mg 02/24/24 09:00 02/25/24 08:48 Sitagliptin Phosphate 100 Mg Tablet PO 100 mg DAILY JAQUI Administration Radiology Results: ITS Impressions Head CT 02/23/24 23:50 IMPRESSION: 1. 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 2. Stable extensive nonspecific cerebral white matter disease, which likely represents chronic small vessel ischemic disease. Abdomen/Pelvis CT 02/23/24 23:52 IMPRESSION: 1. No etiology for the patient's symptoms. Abdomen X-Ray 02/25/24 21:52 IMPRESSION: 1. Nasogastric tube in stomach. 2. Mild pulmonary edema. Chest X-Ray 02/28/24 06:51 Impression: Support tubes, as above. Suspected retrocardiac airspace disease. Correlate for atelectasis or pneumonia. Renal Ultrasound 02/28/24 10:53 IMPRESSION: 1. A couple nonobstructing left renal stones. No hydronephrosis in either kidney. Labs Labs: Laboratory Results - last 24 hr 02/27/24 02/27/24 02/27/24 16:56 20:57 22:16 WBC RBC Hgb Hct MCV MCH MCHC RDW Plt Count MPV Immature Gran % (Auto) Neut % (Auto) Lymph % (Auto) [place] % (Auto) Eos % (Auto) Baso % (Auto) Lymph # (Auto) [place] # (Auto) Eos # (Auto) Baso # (Auto) Abs Immat Gran (auto) Absolute Neuts (auto) Absolute Nucleated RBC Nucleated RBC % Puncture Site ABG pH ABG pCO2 ABG pO2 ABG PO2/FiO2 Ratio ABG HCO3 ABG O2 Saturation ABG O2 Content ABG Base Excess A-a Gradient Oxyhemoglobin Carboxyhemoglobin Methemoglobin Reduced Hemoglobin Total Hemoglobin O2 Delivery Device O2 Liters/Min Minute Volume Vent Rate Vent Mode FiO2 Tidal Volume PEEP Peak Inspir Pressure Pressure Support Sodium Potassium Chloride Carbon Dioxide Anion Gap BUN Creatinine Estim Creat Clear Calc Estimated GFR Glucose POC Capillary Glucose 183 H 204 H Calcium Phosphorus Magnesium Total Bilirubin AST ALT Alkaline Phosphatase Total Protein Albumin Triglycerides 191 H 02/28/24 02/28/24 02/28/24 00:14 03:56 04:29 WBC 16.2 H RBC 4.37 Hgb 12.6 Hct 39.3 MCV 89.9 MCH 28.8 MCHC 32.1 RDW 13.9 Plt Count 184 MPV 12.7 H Immature Gran % (Auto) 0.9 H Neut % (Auto) 76.9 H Lymph % (Auto) 17.2 L [place] % (Auto) 4.9 Eos % (Auto) 0.0 Baso % (Auto) 0.1 L Lymph # (Auto) 2.80 [place] # (Auto) 0.8 H Eos # (Auto) 0.0 Baso # (Auto) 0.0 Abs Immat Gran (auto) 0.15 H Absolute Neuts (auto) 12.5 H Absolute Nucleated RBC 0.000 Nucleated RBC % 0.0 Puncture Site Right brachial ABG pH 7.501 H ABG pCO2 39.3 ABG pO2 67.9 L ABG PO2/FiO2 Ratio 2.26 ABG HCO3 30.0 H ABG O2 Saturation 95.0 ABG O2 Content 16.4 ABG Base Excess 6.4 A-a Gradient 99.8 Oxyhemoglobin 93.8 Carboxyhemoglobin 0.4 Methemoglobin 0.1 Reduced Hemoglobin 5.7 H Total Hemoglobin 12.4 O2 Delivery Device Ventilator O2 Liters/Min Not Reportable Minute Volume Not Reportable Vent Rate 18 Vent Mode Cmv FiO2 30 Tidal Volume 400 PEEP 5 Peak Inspir Pressure Not Reportable Pressure Support Not Reportable Sodium 149 H Potassium 3.6 Chloride 109 H Carbon Dioxide 30 Anion Gap 10 BUN 59 H D Creatinine 1.80 H Estim Creat Clear Calc 28 Estimated GFR 29 L Glucose 147 H POC Capillary Glucose 169 H Calcium 8.5 Phosphorus 3.4 Magnesium 2.5 H Total Bilirubin 0.3 AST 16 ALT 16 Alkaline Phosphatase 67 Total Protein 7.0 Albumin 3.4 L Triglycerides 02/28/24 11:50 WBC RBC Hgb Hct MCV MCH MCHC RDW Plt Count MPV Immature Gran % (Auto) Neut % (Auto) Lymph % (Auto) [place] % (Auto) Eos % (Auto) Baso % (Auto) Lymph # (Auto) [place] # (Auto) Eos # (Auto) Baso # (Auto) Abs Immat Gran (auto) Absolute Neuts (auto) Absolute Nucleated RBC Nucleated RBC % Puncture Site ABG pH ABG pCO2 ABG pO2 ABG PO2/FiO2 Ratio ABG HCO3 ABG O2 Saturation ABG O2 Content ABG Base Excess A-a Gradient Oxyhemoglobin Carboxyhemoglobin Methemoglobin Reduced Hemoglobin Total Hemoglobin O2 Delivery Device O2 Liters/Min Minute Volume Vent Rate Vent Mode FiO2 Tidal Volume PEEP Peak Inspir Pressure Pressure Support Sodium Potassium Chloride Carbon Dioxide Anion Gap BUN Creatinine Estim Creat Clear Calc Estimated GFR Glucose POC Capillary Glucose 237 H Calcium Phosphorus Magnesium Total Bilirubin AST ALT Alkaline Phosphatase Total Protein Albumin Triglycerides Quality VTE Prophylaxis VTE prophylaxis: pharmacologic ordered
[2024-02-28] MEDS: hydrALAZINE HCL 25 MG TABLET PO ×2 (17:24→21:11)
[2024-02-28 18:17] LABS: Glucose Point of Care 167 mg/dl (65-105)
[2024-02-28] MEDS: dexmedeTOMIDine 400 MCG/100 ML 400 MCG/100 ML BAG 11.52 MCG IV CONT (18:28)
[2024-02-28] MEDS: carvediloL 25 MG TABLET PO (21:10)
[2024-02-28] MEDS: cefTRIAXone 2 GM/NS 100 ML 2 GM/100 ML BAG IVPB (21:11)
[2024-02-28] MEDS: AZITHROMYCIN 500 MG/NS 250 ML 500 MG/250 ML BAG 250 MG IVPB (21:11)
[2024-02-29] VITALS (44 sets, daily range): BP systolic 129–194; BP diastolic 67–88; PULSE 49–85; RESP 9–187; TEMP 36.5–36.8; O2SAT 96–100
[2024-02-29 00:14] LABS: Glucose Point of Care 237 mg/dl (65-105)
[2024-02-29] MEDS: dexmedeTOMIDine 400 MCG/100 ML 400 MCG/100 ML BAG 16.45 MCG IV CONT (00:16)
[2024-02-29] MEDS: IPRATROPIUM 0.5 MG/ALBUTEROL SULFATE 2.5 MG AMPUL.NEB 3 ML INHALATION ×4 (02:19→20:47)
[2024-02-29 04:35] LABS: Basophils Percent Auto 0.1 % (0.2-1.2); Hematocrit 40.5 % (37.0-47.0); Hemoglobin 12.8 g/dL (12.0-15.0); Immature Granulocyte Absolute 0.07 K/mm3 (0.00-0.031); Immature Granulocyte Percent A 0.6 % (0-0.5); Lymphocytes Absolute Auto 1.04 K/mm3 (0.9-3.2); Lymphocytes Percent Auto 9.6 % (18.3-44.2); Mean Corpuscular HGB Conc 31.6 g/dl (32-36); Mean Corpuscular Hemoglobin 28.8 pg (26-34); Mean Corpuscular Volume 91.2 fl (80-100); Mean Platelet Volume 12.9 fl (7.4-10.4); Monocytes Absolute Auto 0.2 K/mm3 (0.1-0.6); Neutrophils Absolute Auto 9.5 K/mm3 (1.3-6.7); Neutrophils Percent Auto 87.7 % (45.5-73.1); Platelet Count Result 177 k/mm3 (150-375); Red Blood Count 4.44 M/mm3 (4.2-5.4); Red Cell Distribution Width 14.1 % (11.5-14.5); White Blood Count 10.9 K/mm3 (4.5-10.0)
[2024-02-29 04:45] LABS: Alveolar/Arterial O2 Gradient 79.2 mmHg; Base Excess ABG 2.3 mEq/l (+/-2.0); Carboxyhemoglobin 0.4 % THb (0-2.0); Fractional Inspired Oxygen 30 %; HCO3 ABG 25.6 mEq/l (22.0-26.0); Methemoglobin ABG 0.3 %THb (0-1.5); Oxygen Content ABG 17.6 %vol (16.0-22.0); Oxygen Saturation ABG 97.5 % (95.0-100.0); Oxyhemoglobin 96.5 % THb (90.0-100.0); PCO2 ABG 35.8 mmHg (35.0-45.0); PO2 ABG 92.6 mmHg (80.0-100.0); PO2 FiO2 Ratio Arterial Blood 3.09 %; Reduced Hemoglobin 2.8 %THb (0-5.0); Total Hemoglobin 12.9 g/dL (12.0-18.0); pH ABG 7.473 (7.350-7.450)
[2024-02-29 04:46] LABS: Arterial Blood Gas PEEP 5 cmH2O; Arterial Blood Gas Tidal Volume 400 ml; Arterial Blood Gas Vent Mode CMV; Arterial Blood Gas Ventilator rate 16 /MIN; Device VENTILATOR; Modified Allen's Test Pass; Site Drawn RIGHT RADIAL
[2024-02-29 04:46] LABS: Alanine Aminotransferase 15 U/L (6-35); Albumin Level 3.4 g/dL (3.5-5.1); Alkaline Phosphatase 64 U/L (38-126); Anion Gap 11 mmol/L (4-12); Aspartate Amino Transferase 16 U/L (14-36); Bilirubin,Total 0.2 mg/dL (0.2-1.3); Blood Urea Nitrogen 56 mg/dL (7-17); Calcium 8.7 mg/dL (8.4-10.2); Carbon Dioxide 24 mmol/L (22-30); Chloride 113 mmol/L (98-107); Estimated CRCL calculation 35 ml/min; Estimated Glomerular Filt Rate 38; Glucose 224 mg/dL (65-110); Magnesium 2.8 mg/dL (1.6-2.3); Phosphorus 4.5 mg/dL (2.5-4.5); Potassium 4.3 mmol/L (3.4-5.0); Sodium 148 mmol/L (137-145)
[2024-02-29] MEDS: methylPREDNISolone SOD SUCC 40 MG VIAL IV PUSH ×3 (05:42→21:59)
[2024-02-29] MEDS: metroNIDAZOLE 500 MG/ISO 100ML 500 MG/100 ML BAG 100 MG IVPB ×3 (05:42→21:59)
[2024-02-29] MEDS: INSULIN ASPART (*BKC) 100 UNITS/ML SUB-Q ×3 (05:44→13:01)
[2024-02-29] MEDS: dexmedeTOMIDine 400 MCG/100 ML 400 MCG/100 ML BAG 13.16 MCG IV CONT (06:24)
[2024-02-29] MEDS: amLODIPine BESYLATE 10 MG TABLET PO (08:47)
[2024-02-29] MEDS: carvediloL 25 MG TABLET PO ×2 (08:48→18:25)
[2024-02-29] MEDS: EMPAGLIFLOZIN 10 MG TABLET PO (08:48)
[2024-02-29] MEDS: INSULIN GLARGINE (*BKC) 100 UNITS/ML 15 UNITS SUB-Q (08:48)
[2024-02-29] MEDS: hydrALAZINE HCL 25 MG TABLET PO ×4 (08:48→18:25)
[2024-02-29] MEDS: ASPIRIN 81 MG CHEWABLE TABLET PO (08:48)
[2024-02-29] MEDS: ENOXAPARIN 40 MG/0.4 ML SYRINGE SUB-Q (08:48)
[2024-02-29] MEDS: NICOTINE (*PBKC) 21 MG PATCH 1 PATCH TRANSDERM (08:48)
[2024-02-29] MEDS: MINERAL OIL/WHITE PETROLATUM OINTMENT 1 APPLIC EACH EYE ×2 (08:48→22:00)
[2024-02-29 08:49] LABS: Glucose Point of Care 219 mg/dl (65-105)
[2024-02-29] MEDS: PANTOPRAZOLE SODIUM IV 40 MG VIAL IV PUSH ×2 (08:49→21:59)
--- NOTE | 2024-02-29 09:29 | P.PNINT_ITS ---
Progress Note: A&P Assessment and Plan (1) Respiratory failure: Qualifiers: Chronicity: acute Respiratory failure complication: hypoxia Qualified Code(s): J96.01 - Acute respiratory failure with hypoxia Code(s): J96.90 - Respiratory failure, unspecified, unspecified whether with hypoxia or hypercapnia Status: Acute Assessment and Plan: 02/24/2024: Patient initially presented with nausea, vomiting, hypertensive urgency -on the night of 02/25/2024, patient had significant dyspnea, hypoxia with O2 sats in the 50s to 70 with central cyanosis, she was in impending respiratory failure -02/25/2024: Intubated on the medical floor and transferred to ICU for further management -patient currently on CMV mode of ventilation, peep of 5, 40% FiO2 -chest x-ray and ABGs reviewed -will decrease Precedex -placed on PSV trial (2) Pulmonary edema: Qualifiers: Chronicity: acute Qualified Code(s): J81.0 - Acute pulmonary edema Code(s): J81.1 - Chronic pulmonary edema Status: Acute Assessment and Plan: Pulmonary edema could be multifactorial likely related to hypertensive urgency, mitral regurg, CHF more pulmonary hypertension -patient on previous admissions was on hydralazine, losartan, amlodipine and clonidine. Continue scheduled hydralazine, Coreg and amlodipine. 02/27/2024: Echocardiogram Summary 1. Left ventricular chamber dimension is normal. 2. There is mildly increased left ventricular wall thickness. 3. Left ventricular systolic function is normal, estimated at 60-65%. 4. There is no aortic valve stenosis. 5. There is no aortic valve regurgitation. 6. There is no mitral valve stenosis. 7. There is no mitral valve regurgitation. 8. The left ventricular diastolic function is grade I diastolic dysfunctio (3) Pneumonia: Qualifiers: Pneumonia type: aspiration pneumonia Aspiration pneumonia type: due to gastric secretions Laterality: unspecified laterality Code(s): J18.9 - Pneumonia, unspecified organism Status: Acute Assessment and Plan: Patient did have nausea, vomiting prior to admission, he also has been having dry heaves when she was in the hospital, sudden acute onset respiratory failure, suspect aspiration versus pulmonary edema -continue ceftriaxone, azithromycin,Flagyl -discontinue methylprednisolone (4) Acute exacerbation of CHF (congestive heart failure): Qualifiers: Heart failure type: unspecified Qualified Code(s): I50.9 - Heart failure, unspecified Code(s): I50.9 - Heart failure, unspecified Status: Acute Assessment and Plan: Patient with hypertensive urgency, pulmonary edema, hypoxemia, requiring intubation -restarted home Jardiance -hold diuresis, manage hypertension -echocardiogram this admission as above Echocardiogram 11/10/2022: Summary 1. Complete two-dimensional, color flow and Doppler transthoracic echocardiogram is performed. 2. Left ventricular chamber dimension is normal. 3. Left ventricular systolic function is normal, estimated at 55-60%. 4. There is severely increased left ventricular wall thickness. 5. The left ventricular diastolic function is grade II diastolic dysfunction. 6. Left atrial chamber dimension is mildly enlarged. 7. There is moderate mitral valve regurgitation. 8. The mitral valve has thickened leaflets. 9. Mild pulmonary hypertension, estimated pulmonary arterial systolic pressure is 44 mmHg (5) Acute kidney injury: Code(s): N17.9 - Acute kidney failure, unspecified Status: Acute Assessment and Plan: Acute on chronic kidney disease, could be related congestive changes, hypertension, diabetes, chronic kidney disease -patient has been diuresing well -will hold diuresis his elevated BUN and creatinine -nephrology has been consulted -monitor urine output, renal function electrolytes 02/27: Renal ultrasound showed a couple of nonobstructing left renal stones, no hydronephrosis in either kidney (6) History of diabetes mellitus: Code(s): Z86.39 - Personal history of other endocrine, nutritional and metabolic disease Status: Acute Assessment and Plan: Continue Accu-Cheks and sliding scale insulin, continue Lantus -hemoglobin A1c was 7.3 this admission (7) Hypertensive urgency: Code(s): I16.0 - Hypertensive urgency Status: Acute Assessment and Plan: Hypertensive urgency, blood pressures have improved Continue medications as above (8) Mitral regurgitation: Code(s): I34.0 - Nonrheumatic mitral (valve) insufficiency Status: Acute Assessment and Plan: History of moderate mitral valve regurgitation on echocardiogram done in October of 2002 Echocardiogram as above (9) Electrolyte abnormality: Code(s): E87.8 - Other disorders of electrolyte and fluid balance, not elsewhere classified Status: Acute Assessment and Plan: Increase free water flush Plan DVT prophylaxis: Lovenox Stress ulcer prophylaxis: Protonix Nutrition: Tolerating tube feeds Code Status: Full code Critical Care Time Spent: 30 minutes Due to a high probability of clinically significant, life threatening deterioration, the patient required my highest level of preparedness to intervene emergently and I personally spent this critical care time directly and personally managing the patient. This critical care time included obtaining a history; examining the patient; pulse oximetry; ordering and review of studies; arranging urgent treatment with development of a management plan; evaluation of patient's response to treatment; frequent reassessment; and discussions with other providers. It was exclusive of separately billable procedures and treating other patients and teaching time. Please see Assessment and Plan section and the rest of the note for further information on patient assessment and treatment This dictation may have been done utilizing a voice recognition system. Attempts have been made to correct errors. However, there may be uncorrected grammatical, spelling, and recognitions errors present. Subjective Date/time seen: 02/29/24 Overnight events reviewed. Afebrile Continues to be on mechanical ventilation 30% FiO2 Good urine output Continues to be sedated with Precedex Other Vitals acceptable Interval history: Reason for consult: Acute respiratory failure, possible aspiration, pulmonary edema, pneumonia Review of Systems Review of Systems: ROS unobtainable: Yes unobtainable due to endotracheal tube and unobtainable due to medical condition Exam Narrative: General: Intubated and sedated HEENT:? Pupils equal and reactive, sclerae is clear, ETT in place Neck:? Supple Respiratory:? Coarse breath sounds bilaterally, decreased at bases, no wheezing Cardiac:? S1-S2 normal, regular rate and rhythm Abdomen:? Soft, nontender, nondistended, hypoactive bowel sounds Extremities:? Trace ankle and foot edema right > left, palpable pedal pulses Neuro:? Intubated, sedated, patient opens her eyes to name but does not follow simple commands this morning. Withdraws to pain in all 4 extremities, Skin:? Warm and dry Psych:? Unable to assess this time Objective Data Vital Signs Vital Signs: Vital Signs - 24 hr 02/28/24 10:02/28/24 10:02/28/24 10:00 Temperature 36.7 C Pulse Rate 78 73 73 Respiratory Rate 16 Blood Pressure 149/73 H Pulse Oximetry 99 100 Oxygen Delivery Mechanical Ventilation Fraction of Inspired Oxygen 30 02/28/24 10:02/28/24 10:00 02/28/24 10:46 Temperature Pulse Rate 88 88 70 Respiratory Rate 16 16 16 Blood Pressure Pulse Oximetry Oxygen Delivery Fraction of Inspired Oxygen 02/28/24 11:12 02/28/24 11:13 02/28/24 11:57 Temperature Pulse Rate 69 69 66 Respiratory Rate 16 16 16 Blood Pressure Pulse Oximetry Oxygen Delivery Fraction of Inspired Oxygen 02/28/24 12:00 02/28/24 12:00 02/28/24 12:00 Temperature Pulse Rate 64 64 Respiratory Rate 16 Blood Pressure Pulse Oximetry 95 Oxygen Delivery Mechanical Ventilation Fraction of Inspired Oxygen 30 30 02/28/24 12:00 02/28/24 12:00 02/28/24 12:00 Temperature 37.0 C Pulse Rate 64 61 61 Respiratory Rate 16 17 16 Blood Pressure 109/57 L Pulse Oximetry 95 Oxygen Delivery Fraction of Inspired Oxygen 02/28/24 12:00 02/28/24 13:07 02/28/24 13:08 Temperature Pulse Rate 61 64 63 Respiratory Rate 16 16 Blood Pressure Pulse Oximetry 97 Oxygen Delivery Mechanical Ventilation Fraction of Inspired Oxygen 30 02/28/24 13:20 02/28/24 13:00 02/28/24 13:00 Temperature Pulse Rate 63 62 62 Respiratory Rate 16 16 16 Blood Pressure Pulse Oximetry Oxygen Delivery Fraction of Inspired Oxygen 02/28/24 13:00 02/28/24 14:00 02/28/24 14:00 Temperature 36.8 C Pulse Rate 62 61 61 Respiratory Rate 16 16 Blood Pressure 119/62 Pulse Oximetry 98 Oxygen Delivery Fraction of Inspired Oxygen 02/28/24 14:39 02/28/24 14:00 02/28/24 15:00 Temperature Pulse Rate 63 63 66 Respiratory Rate 16 16 16 Blood Pressure Pulse Oximetry Oxygen Delivery Fraction of Inspired Oxygen 02/28/24 14:00 02/28/24 16:50 02/28/24 16:00 Temperature Pulse Rate 63 59 L 58 L Respiratory Rate 16 Blood Pressure Pulse Oximetry 98 Oxygen Delivery Mechanical Ventilation Fraction of Inspired Oxygen 30 02/28/24 16:00 02/28/24 16:00 02/28/24 16:00 Temperature 36.5 C Pulse Rate 58 L 58 L Respiratory Rate 17 17 Blood Pressure 145/74 H Pulse Oximetry 98 100 Oxygen Delivery Mechanical Ventilation Fraction of Inspired Oxygen 30 30 02/28/24 17:00 02/28/24 16:00 02/28/24 16:00 Temperature Pulse Rate 61 61 61 Respiratory Rate 16 18 18 Blood Pressure Pulse Oximetry Oxygen Delivery Fraction of Inspired Oxygen 02/28/24 18:28 02/28/24 18:28 02/28/24 19:51 Temperature Pulse Rate 63 63 62 Respiratory Rate 16 16 Blood Pressure Pulse Oximetry 97 Oxygen Delivery Mechanical Ventilation Fraction of Inspired Oxygen 30 02/28/24 19:51 02/28/24 20:00 02/28/24 21:10 Temperature Pulse Rate 62 62 62 Respiratory Rate 16 16 Blood Pressure Pulse Oximetry Oxygen Delivery Fraction of Inspired Oxygen 02/28/24 20:00 02/28/24 20:00 02/28/24 20:00 Temperature 36.5 C Pulse Rate 62 62 Respiratory Rate 16 Blood Pressure 141/64 H Pulse Oximetry 97 Oxygen Delivery Fraction of Inspired Oxygen 30 02/28/24 20:00 02/28/24 19:00 02/28/24 20:00 Temperature Pulse Rate 61 62 Respiratory Rate 16 16 16 Blood Pressure Pulse Oximetry 97 Oxygen Delivery Mechanical Ventilation Fraction of Inspired Oxygen 02/28/24 19:00 02/28/24 20:00 02/28/24 19:00 Temperature Pulse Rate 61 62 61 Respiratory Rate 16 16 16 Blood Pressure Pulse Oximetry Oxygen Delivery Fraction of Inspired Oxygen 02/28/24 19:30 02/28/24 20:00 02/28/24 20:30 Temperature Pulse Rate 61 62 62 Respiratory Rate 16 16 18 Blood Pressure Pulse Oximetry Oxygen Delivery Fraction of Inspired Oxygen 02/28/24 21:30 02/28/24 22:00 02/28/24 22:00 Temperature 36.8 C Pulse Rate 64 65 65 Respiratory Rate 16 16 Blood Pressure 126/68 Pulse Oximetry 98 Oxygen Delivery Fraction of Inspired Oxygen 02/28/24 22:00 02/28/24 22:00 02/28/24 22:00 Temperature Pulse Rate 65 65 65 Respiratory Rate 16 16 16 Blood Pressure Pulse Oximetry Oxygen Delivery Fraction of Inspired Oxygen 02/28/24 23:20 02/29/24 00:00 02/29/24 00:00 Temperature Pulse Rate 62 59 L 59 L Respiratory Rate 18 18 Blood Pressure Pulse Oximetry 98 Oxygen Delivery Mechanical Ventilation Fraction of Inspired Oxygen 30 02/29/24 00:00 02/29/24 00:16 02/29/24 00:16 Temperature Pulse Rate 59 L 59 L 59 L Respiratory Rate 16 20 20 Blood Pressure Pulse Oximetry Oxygen Delivery Fraction of Inspired Oxygen 02/29/24 00:00 02/29/24 00:00 02/29/24 00:00 Temperature 36.6 C Pulse Rate 59 L Respiratory Rate 18 18 Blood Pressure 160/82 H Pulse Oximetry 98 98 Oxygen Delivery Mechanical Ventilation Fraction of Inspired Oxygen 30 02/29/24 00:00 02/29/24 01:00 02/29/24 02:20 Temperature Pulse Rate 62 59 L 63 Respiratory Rate Blood Pressure 177/80 H Pulse Oximetry 100 Oxygen Delivery Mechanical Ventilation Fraction of Inspired Oxygen 30 02/29/24 02:20 02/29/24 02:30 02/29/24 02:00 Temperature Pulse Rate 63 59 L 58 L Respiratory Rate 17 19 Blood Pressure Pulse Oximetry Oxygen Delivery Fraction of Inspired Oxygen 02/29/24 02:00 02/29/24 02:00 02/29/24 02:00 Temperature 36.5 C Pulse Rate 58 L 59 L 59 L Respiratory Rate 18 16 16 Blood Pressure 143/72 H Pulse Oximetry 98 Oxygen Delivery Fraction of Inspired Oxygen 02/29/24 02:00 02/29/24 02:38 02/29/24 03:00 Temperature Pulse Rate 59 L 52 L Respiratory Rate 16 16 16 Blood Pressure Pulse Oximetry 98 Oxygen Delivery Mechanical Ventilation Fraction of Inspired Oxygen 02/29/24 04:00 02/29/24 04:00 02/29/24 04:00 Temperature 36.7 C Pulse Rate 51 L 51 L Respiratory Rate 16 Blood Pressure 143/75 H Pulse Oximetry 100 Oxygen Delivery Fraction of Inspired Oxygen 30 02/29/24 04:00 02/29/24 04:00 02/29/24 04:00 Temperature Pulse Rate 51 L 51 L 51 L Respiratory Rate 16 16 16 Blood Pressure Pulse Oximetry Oxygen Delivery Fraction of Inspired Oxygen 02/29/24 04:13 02/29/24 04:47 02/29/24 05:51 Temperature Pulse Rate 49 L 51 L 58 L Respiratory Rate 16 16 Blood Pressure Pulse Oximetry 99 Oxygen Delivery Mechanical Ventilation Fraction of Inspired Oxygen 02/29/24 06:00 02/29/24 06:00 02/29/24 06:00 Temperature 36.8 C Pulse Rate 51 L 51 L 51 L Respiratory Rate 15 16 Blood Pressure 149/76 H Pulse Oximetry 99 Oxygen Delivery Fraction of Inspired Oxygen 02/29/24 06:00 02/29/24 06:00 02/29/24 06:21 Temperature Pulse Rate 51 L 51 L 63 Respiratory Rate 16 16 16 Blood Pressure Pulse Oximetry Oxygen Delivery Fraction of Inspired Oxygen 02/29/24 06:24 02/29/24 06:24 02/28/24 18:00 Temperature Pulse Rate 62 62 61 Respiratory Rate 16 16 Blood Pressure Pulse Oximetry Oxygen Delivery Fraction of Inspired Oxygen 02/28/24 18:00 02/29/24 07:59 02/29/24 07:59 Temperature Pulse Rate 61 49 L Respiratory Rate 17 Blood Pressure Pulse Oximetry 98 99 99 Oxygen Delivery Mechanical Ventilation Mechanical Ventilation Mechanical Ventilation Fraction of Inspired Oxygen 30 30 30 02/29/24 07:59 02/29/24 08:10 02/29/24 08:37 Temperature Pulse Rate 49 L 50 L 59 L Respiratory Rate 17 187 H Blood Pressure Pulse Oximetry 99 Oxygen Delivery Mechanical Ventilation Fraction of Inspired Oxygen 30 02/29/24 08:48 02/29/24 08:00 02/29/24 08:00 Temperature 36.8 C Pulse Rate 52 L 59 L 51 L Respiratory Rate 19 Blood Pressure 161/79 H Pulse Oximetry 99 Oxygen Delivery Fraction of Inspired Oxygen 02/29/24 08:00 02/29/24 08:00 02/29/24 08:40 Temperature Pulse Rate 52 L Respiratory Rate 16 12 Blood Pressure Pulse Oximetry 99 Oxygen Delivery Mechanical Ventilation Fraction of Inspired Oxygen 30 02/29/24 08:40 02/29/24 08:40 Temperature Pulse Rate 52 L 52 L Respiratory Rate 12 12 Blood Pressure Pulse Oximetry Oxygen Delivery Fraction of Inspired Oxygen Intake/Output Intake/Output: Intake & Output 02/26/24 02/27/24 02/28/24 02/29/24 23:59 23:59 23:59 23:59 Intake Total 1069.6 1776.5 2632.2 639.3 Output Total 2500 1200 1800 1000 Balance -1430.4 576.5 832.2 -360.7 Meds/Results Medications: Active Medications Generic Name Dose Route Start Last Admin Trade Name Freq PRN Reason Stop Dose Admin Acetaminophen 650 mg 02/25/24 10:29 Acetaminophen 325 Mg Tablet PO Q6H PRN Mild Pain (1-3) or Fever Albuterol 2.5 mg 02/25/24 21:20 Albuterol Sulfate Neb 2.5 Mg/3 Ml Inh INHALATION Q6HRT PRN Shortness Of Breath Albuterol/Ipratropium 3 ml 02/26/24 02:00 02/29/24 07:59 Ipratropium 0.5 Mg/Albuterol Sulfate 2.5 Mg Ampul.Neb 3 Ml INHALATION 3 ml Q6HRT JAQUI Administration Amlodipine Besylate 10 mg 02/28/24 09:00 02/29/24 08:47 Amlodipine Besylate 10 Mg Tablet PO 10 mg DAILY JAQUI Administration Aspirin 81 mg 02/24/24 09:00 02/29/24 08:48 Aspirin 81 Mg Chewable Tablet PO 81 mg DAILY JAQUI Administration Carvedilol 25 mg 02/28/24 21:00 02/29/24 08:48 Carvedilol 25 Mg Tablet PO 25 mg Q12HR JAQUI Administration Dextrose 12.5 gm 02/26/24 04:22 Dextrose 50% 25 Gm/50 Ml Syringe IV PUSH PRN PRN Hypoglycemia Protocol Empagliflozin 10 mg 02/27/24 09:00 02/29/24 08:48 Empagliflozin 10 Mg Tablet PO 10 mg DAILY JAQUI Administration Enoxaparin Sodium 40 mg 02/27/24 09:00 02/29/24 08:48 Enoxaparin 40 Mg/0.4 Ml Syringe SUB-Q 40 mg DAILY JAQUI Administration Glucagon 1 mg 02/26/24 04:22 Glucagon For Inj 1 Mg Vial IM PRN PRN Hypoglycemia Protocol Glucose 15 gm 02/26/24 04:22 Glucose Oral Gel 15 Gm Of Glucse In 37.5 Gm Tube PO PRN PRN Hypoglycemia Protocol Hydralazine HCl 10 mg 02/26/24 07:49 02/28/24 18:29 Hydralazine Hcl 20 Mg/Ml Vial IV PUSH 10 mg Q4H PRN Administration Blood Pressure - High Hydralazine HCl 25 mg 02/28/24 12:00 02/29/24 08:48 Hydralazine Hcl 25 Mg Tablet PO 25 mg WMHS JAQUI Administration Ceftriaxone Sodium 2 gm in 100 mls @ 200 mls/hr 02/25/24 21:00 02/28/24 23:56 Rocephin 2 Gm/Ns 100 Ml IVPB Infused Q24H JAQUI Infusion Azithromycin 500 mg in 250 mls @ 250 mls/hr 02/25/24 22:00 02/28/24 23:56 Zithromax IVPB Infused Q24H JAQUI Infusion Fentanyl Citrate 2,500 mcg in 250 mls @ 2.5 mls/hr 02/26/24 00:35 02/29/24 08:40 Fentanyl 2,500 Mcg/Ns 250 Ml IV CONT 0 mcg/hr .Q72H JAQUI 0 mls/hr Titration Protocol 25 MCG/HR Midazolam HCl 100 mg in 100 mls @ 0 mls/hr 02/26/24 00:35 02/29/24 08:40 Versed 100 Mg/Ns 100 Ml IV CONT 0 mg/hr .Q0M JAQUI 0 mls/hr Titration Protocol 0 MG/HR Dextrose 1,000 mls @ 100 mls/hr 02/26/24 04:22 Dextrose 5% 1,000 Ml IVPB PRN PRN Hypoglycemia Protocol Metronidazole 500 mg in 100 mls @ 100 mls/hr 02/26/24 08:00 02/29/24 05:42 Flagyl 500 Mg/Iso Soln 100 Ml IVPB 100 mls/hr Q8HR JAQUI Administration Dexmedetomidine HCl 400 mcg in 100 mls @ 8.225 mls/hr 02/28/24 10:25 02/29/24 08:40 Precedex 400 Mcg/100 Ml IV CONT 0.5 mcg/kg/hr .[id number] JAQUI 8.23 mls/hr Titration Protocol 0.5 MCG/KG/HR Insulin Aspart 4 - 8 units 02/29/24 09:00 02/29/24 08:49 Insulin Aspart (*Bkc) 100 Units/Ml SUB-Q 4 units Q4HR JAQUI Administration Protocol Insulin Glargine 15 units 02/27/24 09:00 02/29/24 08:48 Insulin Glargine (*Bkc) 100 Units/Ml SUB-Q 15 units DAILY JAQUI Administration Labetalol HCl 10 mg 02/25/24 21:30 02/25/24 22:18 Labetalol Hcl Inj 100 Mg/20 Ml Vial IV PUSH 10 mg Q12HR JAQUI Administration Methylprednisolone Sodium Succinate 40 mg 02/28/24 06:00 02/29/24 05:42 Methylprednisolone Sod Succ 40 Mg Vial IV PUSH 03/01/24 05:59 40 mg Q8H JAQUI Administration Multi-Ingred Cream/Lotion/Oil/Oint 1 applic 02/26/24 09:00 02/29/24 08:48 Mineral Oil/White Petrolatum Ointment EACH EYE 1 applic Q12HR JAQUI Administration Nicotine 1 patch 02/26/24 09:00 02/29/24 08:48 Nicotine (*Pbkc) 21 Mg Patch TRANSDERM 1 patch DAILY JAQUI Administration Ondansetron HCl 4 mg 02/25/24 20:59 Ondansetron Inj 4 Mg/2 Ml Vial IV PUSH Q6H PRN Nausea And Vomiting Pantoprazole Sodium 40 mg 02/26/24 09:00 02/29/24 08:49 Pantoprazole Sodium Iv 40 Mg Vial IV PUSH 40 mg Q12HR JAQUI Administration Sitagliptin Phosphate 100 mg 02/24/24 09:00 02/25/24 08:48 Sitagliptin Phosphate 100 Mg Tablet PO 100 mg DAILY JAQUI Administration Radiology Results: ITS Impressions Head CT 02/23/24 23:50 IMPRESSION: 1. 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 2. Stable extensive nonspecific cerebral white matter disease, which likely represents chronic small vessel ischemic disease. Abdomen/Pelvis CT 02/23/24 23:52 IMPRESSION: 1. No etiology for the patient's symptoms. Abdomen X-Ray 02/25/24 21:52 IMPRESSION: 1. Nasogastric tube in stomach. 2. Mild pulmonary edema. Renal Ultrasound 02/28/24 10:53 IMPRESSION: 1. A couple nonobstructing left renal stones. No hydronephrosis in either kidney. Chest X-Ray 02/29/24 06:25 Impression: Clear lungs. Support tubes, as above. Labs Labs: Laboratory Results - last 24 hr 02/28/24 02/28/24 02/28/24 11:50 18:10 23:53 WBC RBC Hgb Hct MCV MCH MCHC RDW Plt Count MPV Immature Gran % (Auto) Neut % (Auto) Lymph % (Auto) [place] % (Auto) Eos % (Auto) Baso % (Auto) Lymph # (Auto) [place] # (Auto) Eos # (Auto) Baso # (Auto) Abs Immat Gran (auto) Absolute Neuts (auto) Absolute Nucleated RBC Nucleated RBC % Puncture Site ABG pH ABG pCO2 ABG pO2 ABG PO2/FiO2 Ratio ABG HCO3 ABG O2 Saturation ABG O2 Content ABG Base Excess A-a Gradient Oxyhemoglobin Carboxyhemoglobin Methemoglobin Reduced Hemoglobin Total Hemoglobin O2 Delivery Device O2 Liters/Min Minute Volume Vent Rate Vent Mode FiO2 Tidal Volume PEEP Peak Inspir Pressure Pressure Support Sodium Potassium Chloride Carbon Dioxide Anion Gap BUN Creatinine Estim Creat Clear Calc Estimated GFR Glucose POC Capillary Glucose 237 H 167 H 237 H Calcium Phosphorus Magnesium Total Bilirubin AST ALT Alkaline Phosphatase Total Protein Albumin 02/29/24 02/29/24 02/29/24 04:30 04:38 08:46 WBC 10.9 H RBC 4.44 Hgb 12.8 Hct 40.5 MCV 91.2 MCH 28.8 MCHC 31.6 L RDW 14.1 Plt Count 177 MPV 12.9 H Immature Gran % (Auto) 0.6 H Neut % (Auto) 87.7 H Lymph % (Auto) 9.6 L [place] % (Auto) 2.0 L Eos % (Auto) 0.0 Baso % (Auto) 0.1 L Lymph # (Auto) 1.04 [place] # (Auto) 0.2 Eos # (Auto) 0.0 Baso # (Auto) 0.0 Abs Immat Gran (auto) 0.07 H Absolute Neuts (auto) 9.5 H Absolute Nucleated RBC 0.000 Nucleated RBC % 0.0 Puncture Site Right radial ABG pH 7.473 H ABG pCO2 35.8 ABG pO2 92.6 ABG PO2/FiO2 Ratio 3.09 ABG HCO3 25.6 ABG O2 Saturation 97.5 ABG O2 Content 17.6 ABG Base Excess 2.3 A-a Gradient 79.2 Oxyhemoglobin 96.5 Carboxyhemoglobin 0.4 Methemoglobin 0.3 Reduced Hemoglobin 2.8 Total Hemoglobin 12.9 O2 Delivery Device Ventilator O2 Liters/Min Not Reportable Minute Volume Not Reportable Vent Rate 16 Vent Mode Cmv FiO2 30 Tidal Volume 400 PEEP 5 Peak Inspir Pressure Not Reportable Pressure Support Not Reportable Sodium 148 H Potassium 4.3 Chloride 113 H Carbon Dioxide 24 Anion Gap 11 BUN 56 H Creatinine 1.40 H Estim Creat Clear Calc 35 Estimated GFR 38 L Glucose 224 H POC Capillary Glucose 219 H Calcium 8.7 Phosphorus 4.5 Magnesium 2.8 H Total Bilirubin 0.2 AST 16 ALT 15 Alkaline Phosphatase 64 Total Protein 7.0 Albumin 3.4 L Quality VTE Prophylaxis VTE prophylaxis: pharmacologic ordered
--- NOTE | 2024-02-29 10:48 | PCFNICU ---
ICU Rounding Note: Pt current nutrition is Glucerna 1.2 at 60 ml//hr. Last recorded weight is 66 kg, up from 62.9 kg on admit. Bowel Motility: +BM reported 02/27 Labs Reviewed:Mg 2.8, GFR 38, BUN 56, Na 148, Glu 224 Meds Noted:Precedex, Protonix, Coreg,NovoLog, Lantus, Solu Medrol Skin: WNL Additional Notes: Patient remains on mechanical vent. Tube feedings are being tolerating of Glucerna 1.2 at 60ml/hr-goal rate. Flush 30 ml q 4 hours. Discussions in ICU rounds regarding a breathing trial today. Agree with diet orders. Following daily in ICU rounds. Monitoring intakes, weights, labs, supplement tolerance, plan of care every Tuesday and Tuesday.
--- NOTE | 2024-02-29 12:35 | P.PNNP_ITS ---
Progress Note: A&P Assessment and Plan (1) Acute kidney injury: Code(s): N17.9 - Acute kidney failure, unspecified Status: Acute Assessment and Plan: * relatively stable if not better * creatinine was around 1.1 - 1.4mg/dl in October 2022 * however, prior to that, creatinine was normal * suspect some mild CKD from hypertension and diabetes as well as vascular disease * reasonable urine output in response to IV diuretics * possible etiologies: * CHF * fluctuating hemodynamics/BP * infection (pneumonia) * diuresis * hypoxia * other(?) * renal ultrasound noted * follow trend of repeat labs and UOP (2) Acute respiratory failure: Code(s): J96.00 - Acute respiratory failure, unspecified whether with hypoxia or hypercapnia Status: Acute Assessment and Plan: * impending respiratory failure on evening of 02/24 with shortness of breath, hypoxia and central cyanosis * intubated and placed on mechanical ventilation * thought to be secondary to pulmonary edema * ventilator weaning once more stable * continue ventilator support (3) Acute pulmonary edema: Code(s): J81.0 - Acute pulmonary edema Status: Acute Assessment and Plan: * suspect multifactorial etiology: * hypertensive urgency * CHF * valvular heart disease * pulmonary HTN * other? * IV diuresis as tolerated * repeat Echo results noted (4) Pneumonia: Qualifiers: Pneumonia type: aspiration pneumonia Aspiration pneumonia type: due to gastric secretions Laterality: unspecified laterality Code(s): J18.9 - Pneumonia, unspecified organism Status: Acute Assessment and Plan: * possible componnt of aspiration * noted to have nausea and vomiting along with dry heaves prior to decline in respiratory status * follow culture data * on antibiotics (5) Acute exacerbation of CHF (congestive heart failure): Qualifiers: Heart failure type: unspecified Qualified Code(s): I50.9 - Heart failure, unspecified Code(s): I50.9 - Heart failure, unspecified Status: Acute Assessment and Plan: * suspect cause if not contributing factor with regard to pulmonary edema * other factors include HTN urgency and hypoxia * Echo as noted * BP control * diuresis as tolerated (6) Hypertensive urgency: Code(s): I16.0 - Hypertensive urgency Status: Acute Assessment and Plan: * as noted on admission * BP under better control now * follow trend of hemodynamics (7) History of diabetes mellitus: Code(s): Z86.39 - Personal history of other endocrine, nutritional and metabolic disease Status: Acute Assessment and Plan: * follow accu-cheks * glycemic control per hospitalists/field representatives director Will continue to follow. Subjective Date/time seen: 02/29/24 12:35 Interval history: Follow-up for acute kidney injury/acute renal failure on chronic kidney disease. Remains intubated/sedated and on mechanical ventilation at the time of my visit; renal function/creatinine a bit better associated with reasonable urine output; remains hemodynamically stable; no other acute issues/events overnight or earlier this morning. Exam Narrative: General: female (who appears older than stated age) intubated/sedated and on mechanical ventilation Heart: normal S1 and S2; no rub Lungs: coarse breath sounds; decreased at bases Abdomen: soft, nontender, nondistended, decreased bowel sounds Extremities: no cyanosis or clubbing; trace edema Skin: warm and dry Objective Data Vital Signs Vital Signs: Vital Signs Temp Pulse Resp BP Pulse Ox O2 Del Method O2 Flow Rate 02/29/24 12:18 56 L 11 L 02/29/24 12:10 65 99 Mechanical Ventilation 02/29/24 12:00 97.9 F 53 L 18 129/72 99 02/29/24 11:04 53 L 98 Mechanical Ventilation 02/29/24 10:00 51 L 02/29/24 10:00 97.9 F 51 L 9 L 132/67 99 02/29/24 10:05 51 L 10 L 02/29/24 08:40 52 L 12 02/29/24 08:40 52 L 12 02/29/24 08:40 52 L 12 02/29/24 08:00 16 99 Mechanical Ventilation 02/29/24 08:00 02/29/24 08:00 51 L 02/29/24 08:00 98.2 F 59 L 19 161/79 H 99 02/29/24 08:48 52 L 02/29/24 08:37 59 L 99 Mechanical Ventilation 02/29/24 08:10 50 L 187 H 02/29/24 07:59 49 L 17 02/29/24 07:59 49 L 99 Mechanical Ventilation 02/29/24 07:59 99 Mechanical Ventilation 02/28/24 18:00 61 17 98 Mechanical Ventilation 02/28/24 18:00 61 09/04/24 06:24 62 16 02/29/24 06:24 62 16 02/29/24 06:21 63 16 02/29/24 06:00 51 L 16 02/29/24 06:00 51 L 16 02/29/24 06:00 51 L 16 02/29/24 06:00 98.2 F 51 L 15 149/76 H 99 02/29/24 06:00 51 L 02/29/24 05:51 58 L 16 02/29/24 04:47 51 L 99 Mechanical Ventilation 02/29/24 04:13 49 L 16 02/29/24 04:00 51 L 16 02/29/24 04:00 51 L 16 02/29/24 04:00 51 L 16 02/29/24 04:00 98.1 F 51 L 16 143/75 H 100 02/29/24 04:00 51 L 02/29/24 04:00 02/29/24 03:00 16 98 Mechanical Ventilation 02/29/24 02:38 52 L 16 02/29/24 02:00 59 L 16 02/29/24 02:00 59 L 16 02/29/24 02:00 59 L 16 02/29/24 02:00 97.7 F 58 L 18 143/72 H 98 02/29/24 02:00 58 L 02/29/24 02:30 59 L 19 02/29/24 02:20 63 17 02/29/24 02:20 63 100 Mechanical Ventilation 02/29/24 01:00 59 L 177/80 H 02/29/24 00:00 62 02/29/24 00:00 97.9 F 59 L 18 160/82 H 98 02/29/24 00:00 02/29/24 00:00 18 98 Mechanical Ventilation 02/29/24 00:16 59 L 20 02/29/24 00:16 59 L 20 02/29/24 00:00 59 L 16 02/29/24 00:00 59 L 18 02/29/24 00:00 59 L 18 02/28/24 23:20 62 98 Mechanical Ventilation 02/28/24 22:00 65 16 02/28/24 22:00 65 16 02/28/24 22:00 65 16 02/28/24 22:00 98.2 F 65 16 126/68 98 02/28/24 22:00 65 02/28/24 21:30 64 16 02/28/24 20:30 62 18 02/28/24 20:00 62 16 02/28/24 19:30 61 16 02/28/24 19:00 61 16 02/28/24 20:00 62 16 02/28/24 19:00 61 16 02/28/24 20:00 62 16 02/28/24 19:00 61 16 02/28/24 20:00 16 97 Mechanical Ventilation 02/28/24 20:00 02/28/24 20:00 97.7 F 62 16 141/64 H 97 02/28/24 20:00 62 02/28/24 21:10 62 02/28/24 20:00 62 16 02/28/24 19:51 62 16 02/28/24 19:51 62 97 Mechanical Ventilation 02/28/24 18:28 63 16 02/28/24 18:28 63 16 02/28/24 17:00 61 16 Intake/Output Intake/Output: Intake & Output 02/26/24 02/27/24 02/28/24 02/29/24 23:59 23:59 23:59 23:59 Intake Total 1069.6 1776.5 2632.2 768.7 Output Total 2500 1200 1800 1000 Balance -1430.4 576.5 832.2 -231.3 Meds/Results Medications: Active Medications Generic Name Dose Route Start Last Admin Trade Name Freq PRN Reason Stop Dose Admin Acetaminophen 650 mg 02/25/24 10:29 Acetaminophen 325 Mg Tablet PO Q6H PRN Mild Pain (1-3) or Fever Albuterol 2.5 mg 02/25/24 21:20 Albuterol Sulfate Neb 2.5 Mg/3 Ml Inh INHALATION Q6HRT PRN Shortness Of Breath Albuterol/Ipratropium 3 ml 02/26/24 02:00 02/29/24 13:47 Ipratropium 0.5 Mg/Albuterol Sulfate 2.5 Mg Ampul.Neb 3 Ml INHALATION 3 ml Q6HRT JAQUI Administration Amlodipine Besylate 10 mg 02/28/24 09:00 02/29/24 08:47 Amlodipine Besylate 10 Mg Tablet PO 10 mg DAILY JAQUI Administration Aspirin 81 mg 02/24/24 09:00 02/29/24 08:48 Aspirin 81 Mg Chewable Tablet PO 81 mg DAILY JAQUI Administration Carvedilol 25 mg 02/28/24 21:00 02/29/24 08:48 Carvedilol 25 Mg Tablet PO 25 mg Q12HR JAQUI Administration Dextrose 12.5 gm 02/26/24 04:22 Dextrose 50% 25 Gm/50 Ml Syringe IV PUSH PRN PRN Hypoglycemia Protocol Empagliflozin 10 mg 02/27/24 09:00 02/29/24 08:48 Empagliflozin 10 Mg Tablet PO 10 mg DAILY JAQUI Administration Enoxaparin Sodium 40 mg 02/27/24 09:00 02/29/24 08:48 Enoxaparin 40 Mg/0.4 Ml Syringe SUB-Q 40 mg DAILY JAQUI Administration Glucagon 1 mg 02/26/24 04:22 Glucagon For Inj 1 Mg Vial IM PRN PRN Hypoglycemia Protocol Glucose 15 gm 02/26/24 04:22 Glucose Oral Gel 15 Gm Of Glucse In 37.5 Gm Tube PO PRN PRN Hypoglycemia Protocol Hydralazine HCl 10 mg 02/26/24 07:49 02/29/24 15:20 Hydralazine Hcl 20 Mg/Ml Vial IV PUSH 10 mg Q4H PRN Administration Blood Pressure - High Hydralazine HCl 25 mg 02/28/24 12:00 02/29/24 13:00 Hydralazine Hcl 25 Mg Tablet PO 25 mg WMHS JAQUI Administration Ceftriaxone Sodium 2 gm in 100 mls @ 200 mls/hr 02/25/24 21:00 02/28/24 23:56 Rocephin 2 Gm/Ns 100 Ml IVPB 03/03/24 20:59 Infused Q24H JAQUI Infusion Azithromycin 500 mg in 250 mls @ 250 mls/hr 02/25/24 22:00 02/28/24 23:56 Zithromax IVPB 03/01/24 21:59 Infused Q24H JAQUI Infusion Fentanyl Citrate 2,500 mcg in 250 mls @ 2.5 mls/hr 02/26/24 00:35 02/29/24 08:40 Fentanyl 2,500 Mcg/Ns 250 Ml IV CONT 0 mcg/hr .Q72H JAQUI 0 mls/hr Titration Protocol 25 MCG/HR Midazolam HCl 100 mg in 100 mls @ 0 mls/hr 02/26/24 00:35 02/29/24 08:40 Versed 100 Mg/Ns 100 Ml IV CONT 0 mg/hr .Q0M JAQUI 0 mls/hr Titration Protocol 0 MG/HR Dextrose 1,000 mls @ 100 mls/hr 02/26/24 04:22 Dextrose 5% 1,000 Ml IVPB PRN PRN Hypoglycemia Protocol Metronidazole 500 mg in 100 mls @ 100 mls/hr 02/26/24 08:00 02/29/24 13:00 Flagyl 500 Mg/Iso Soln 100 Ml IVPB 03/02/24 07:59 100 mls/hr Q8HR JAQUI Administration Insulin Aspart 4 - 8 units 02/29/24 09:00 02/29/24 13:01 Insulin Aspart (*Bkc) 100 Units/Ml SUB-Q 4 units Q4HR JAQUI Administration Protocol Insulin Glargine 15 units 02/27/24 09:00 02/29/24 08:48 Insulin Glargine (*Bkc) 100 Units/Ml SUB-Q 15 units DAILY JAQUI Administration Labetalol HCl 10 mg 02/25/24 21:30 02/25/24 22:18 Labetalol Hcl Inj 100 Mg/20 Ml Vial IV PUSH 10 mg Q12HR JAQUI Administration Methylprednisolone Sodium Succinate 40 mg 02/28/24 06:00 02/29/24 13:00 Methylprednisolone Sod Succ 40 Mg Vial IV PUSH 03/01/24 05:59 40 mg Q8H JAQUI Administration Multi-Ingred Cream/Lotion/Oil/Oint 1 applic 02/26/24 09:00 02/29/24 08:48 Mineral Oil/White Petrolatum Ointment EACH EYE 1 applic Q12HR JAQUI Administration Nicotine 1 patch 02/26/24 09:00 02/29/24 08:48 Nicotine (*Pbkc) 21 Mg Patch TRANSDERM 1 patch DAILY JAQUI Administration Ondansetron HCl 4 mg 02/25/24 20:59 Ondansetron Inj 4 Mg/2 Ml Vial IV PUSH Q6H PRN Nausea And Vomiting Pantoprazole Sodium 40 mg 02/26/24 09:00 02/29/24 08:49 Pantoprazole Sodium Iv 40 Mg Vial IV PUSH 40 mg Q12HR JAQUI Administration Sitagliptin Phosphate 100 mg 02/24/24 09:00 02/25/24 08:48 Sitagliptin Phosphate 100 Mg Tablet PO 100 mg DAILY JAQUI Administration Radiology Results: ITS Impressions Head CT 02/23/24 23:50 IMPRESSION: 1. 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 2. Stable extensive nonspecific cerebral white matter disease, which likely represents chronic small vessel ischemic disease. Abdomen/Pelvis CT 02/23/24 23:52 IMPRESSION: 1. No etiology for the patient's symptoms. Abdomen X-Ray 02/25/24 21:52 IMPRESSION: 1. Nasogastric tube in stomach. 2. Mild pulmonary edema. Renal Ultrasound 02/28/24 10:53 IMPRESSION: 1. A couple nonobstructing left renal stones. No hydronephrosis in either kidney. Chest X-Ray 02/29/24 06:25 Impression: Clear lungs. Support tubes, as above. Venous Doppler Study 02/29/24 12:29 IMPRESSION: 1: No lower extremity deep venous thrombosis. Labs Labs: Laboratory Tests 02/29/24 04:30 02/29/24 04:30 Calcium 8.7 Phosphorus 4.5 Magnesium 2.8 H Total Bilirubin 0.2 AST 16 ALT 15 Alkaline Phosphatase 64 Total Protein 7.0 Albumin 3.4 L
[2024-02-29 12:38] LABS: Glucose Point of Care 241 mg/dl (65-105)
[2024-02-29 13:50] LABS: Alveolar/Arterial O2 Gradient 67.5 mmHg; Base Excess ABG 3.5 mEq/l (+/-2.0); Fractional Inspired Oxygen 30 %; HCO3 ABG 28.1 mEq/l (22.0-26.0); Oxygen Content ABG 17.6 %vol (16.0-22.0); Oxygen Saturation ABG 97.5 % (95.0-100.0); Oxyhemoglobin 96.6 % THb (90.0-100.0); PCO2 ABG 42.7 mmHg (35.0-45.0); PO2 ABG 96.2 mmHg (80.0-100.0); PO2 FiO2 Ratio Arterial Blood 3.21 %; Total Hemoglobin 12.9 g/dL (12.0-18.0); pH ABG 7.436 (7.350-7.450)
[2024-02-29 13:51] LABS: Arterial Blood Gas PEEP 5 cmH2O; Arterial Blood Gas Pressure Support 5 cmH2O; Arterial Blood Gas Vent Mode SPONTANEOUS; Device VENTILATOR; Site Drawn RIGHT BRACHIAL
[2024-02-29] MEDS: hydrALAZINE HCL 20 MG/ML VIAL 10 MG IV PUSH ×2 (15:20→21:58)
--- NOTE | 2024-02-29 15:31 | P.PNIM_ITS ---
Progress Note: A&P Assessment and Plan (1) Respiratory failure: Qualifiers: Chronicity: acute Respiratory failure complication: hypoxia Qualified Code(s): J96.01 - Acute respiratory failure with hypoxia Code(s): J96.90 - Respiratory failure, unspecified, unspecified whether with hypoxia or hypercapnia Status: Acute Assessment and Plan: 02/24/2024: Patient initially presented with nausea, vomiting, hypertensive urgency -on the night of 02/25/2024, patient had significant dyspnea, hypoxia with O2 sats in the 50s to 70 with central cyanosis, she was in impending respiratory failure -02/25/2024: Intubated on the medical floor and transferred to ICU for further management -patient currently on CMV mode of ventilation, peep of 5, 40% FiO2 -chest x-ray and ABGs reviewed sedation and vent management per solution consultant (2) Pulmonary edema: Qualifiers: Chronicity: acute Qualified Code(s): J81.0 - Acute pulmonary edema Code(s): J81.1 - Chronic pulmonary edema Status: Acute Assessment and Plan: Pulmonary edema could be multifactorial likely related to hypertensive urgency, mitral regurg, CHF more pulmonary hypertension -patient on previous admissions was on hydralazine, losartan, amlodipine and clonidine. Continue scheduled hydralazine, Coreg and amlodipine. EF 60-65 with grade I diastolic dysfunction 02/27/24 diuretics on hold, Nephrology on board continue fluid balance per nephrology (3) Pneumonia: Qualifiers: Pneumonia type: aspiration pneumonia Aspiration pneumonia type: due to gastric secretions Laterality: unspecified laterality Code(s): J18.9 - Pneumonia, unspecified organism Status: Acute Assessment and Plan: Patient did have nausea, vomiting prior to admission, he also has been having dry heaves when she was in the hospital, sudden acute onset respiratory failure, suspect aspiration versus pulmonary edema -continue ceftriaxone, azithromycin,Flagyl -discontinue methylprednisolone (4) Acute exacerbation of CHF (congestive heart failure): Qualifiers: Heart failure type: unspecified Qualified Code(s): I50.9 - Heart failure, unspecified Code(s): I50.9 - Heart failure, unspecified Status: Acute Assessment and Plan: Patient with hypertensive urgency, pulmonary edema, hypoxemia, requiring intubation -restarted home Jardiance -diuresis per nephrology -echocardiogram this admission as above (5) Acute kidney injury: Code(s): N17.9 - Acute kidney failure, unspecified Status: Acute Assessment and Plan: Acute on chronic kidney disease, could be related congestive changes, hypertension, diabetes, chronic kidney disease -patient has been diuresing well -will hold diuresis his elevated BUN and creatinine -monitor urine output, renal function electrolytes 02/27: Renal ultrasound showed a couple of nonobstructing left renal stones, no hydronephrosis in either kidney nephrology on board (6) History of diabetes mellitus: Code(s): Z86.39 - Personal history of other endocrine, nutritional and metabolic disease Status: Acute Assessment and Plan: Continue Accu-Cheks and sliding scale insulin, continue Lantus -hemoglobin A1c was 7.3 this admission (7) Hypertensive urgency: Code(s): I16.0 - Hypertensive urgency Status: Acute Assessment and Plan: Hypertensive urgency, blood pressures have improved Continue medications as above (8) Mitral regurgitation: Code(s): I34.0 - Nonrheumatic mitral (valve) insufficiency Status: Acute Assessment and Plan: History of moderate mitral valve regurgitation on echocardiogram done in October of 2002 Echocardiogram as above (9) Electrolyte abnormality: Code(s): E87.8 - Other disorders of electrolyte and fluid balance, not elsewhere classified Status: Acute Assessment and Plan: Increase free water flush Plan DVT prophylaxis: Lovenox Stress ulcer prophylaxis: Protonix Nutrition: Tolerating tube feeds Code Status: Full code Subjective Date/time seen: 02/29/24 15:31 Interval history: Reason for consult: Acute respiratory failure, possible aspiration, pulmonary edema, pneumonia Review of Systems Review of Systems: Review of systems difficult to obtain due to patient's expressive aphasia. ROS unobtainable: Yes unobtainable due to endotracheal tube and unobtainable due to medical condition Exam Narrative: General: Intubated and sedated HEENT:? Pupils equal and reactive, sclerae is clear, ETT in place Neck:? Supple Respiratory:? Coarse breath sounds bilaterally, decreased at bases, no wheezing Cardiac:? S1-S2 normal, regular rate and rhythm Abdomen:? Soft, nontender, nondistended, hypoactive bowel sounds Extremities:? Trace ankle and foot edema right > left, palpable pedal pulses Neuro:? Intubated, sedated, patient opens her eyes to name but does not follow simple commands this morning. Withdraws to pain in all 4 extremities, Skin:? Warm and dry Psych:? Unable to assess this time Const: Other: Disheveled, appears older than stated age, poor hygiene, no acute distress HENMT: Other: Head is normocephalic atraumatic, mucous membranes are tacky, multiple missing teeth, Eyes: Other: pupils are equal and reactive, cataracts noted Neck: Other: No JVD, no lymphadenopathy Resp: Other: Decreased breath sounds bilaterally, no increased work of breathing Cardio: Other: Regular rate, regular rhythm, 2+ bilateral radial pedal pulses, no JVD GI: Other: Soft, nondistended, positive bowel sounds, tender in the suprapubic region : Other: Incontinent of urine, depends in place Skin: Other: No jaundice, no pallor Neuro: Other: Patient is alert oriented to person, month, year, and the fact that she is in the hospital she was not unable to name the town the hospital was in but stated the appropriate city a residence, she has expressive aphasia, she moves all extremities equally but has residual right-sided weakness in seemed to have some difficulty with coordination of the right side arms more so than legs, normal tone, extraocular movements seem to be intact, if the patient initiates the sentence she has better success at speaking in full sentences but if fast directed questions she has increased difficulty with expressive aphasia Extrem: Other: Difficulty with coordination of the right upper and lower extremity, 3/5 claim processing specialist strength on the right, normal tone Psych: Other: Pleasant and cooperative, Objective Data Vital Signs Vital Signs: Vital Signs - 24 hr 02/28/24 16:50 02/28/24 16:00 02/28/24 16:00 Temperature Pulse Rate 59 L 58 L 58 L Respiratory Rate 17 Blood Pressure Pulse Oximetry 98 98 Oxygen Delivery Mechanical Ventilation Mechanical Ventilation Oxygen Flow Rate Fraction of Inspired Oxygen 30 30 02/28/24 16:00 02/28/24 16:00 02/28/24 17:00 Temperature 97.7 F Pulse Rate 58 L 61 Respiratory Rate 17 16 Blood Pressure 145/74 H Pulse Oximetry 100 Oxygen Delivery Oxygen Flow Rate Fraction of Inspired Oxygen 30 02/28/24 16:00 02/28/24 16:00 02/28/24 18:28 Temperature Pulse Rate 61 61 63 Respiratory Rate 18 18 16 Blood Pressure Pulse Oximetry Oxygen Delivery Oxygen Flow Rate Fraction of Inspired Oxygen 02/28/24 18:28 02/28/24 19:51 02/28/24 19:51 Temperature Pulse Rate 63 62 62 Respiratory Rate 16 16 Blood Pressure Pulse Oximetry 97 Oxygen Delivery Mechanical Ventilation Oxygen Flow Rate Fraction of Inspired Oxygen 30 02/28/24 20:00 02/28/24 21:10 02/28/24 20:00 Temperature Pulse Rate 62 62 62 Respiratory Rate 16 Blood Pressure Pulse Oximetry Oxygen Delivery Oxygen Flow Rate Fraction of Inspired Oxygen 02/28/24 20:00 02/28/24 20:00 02/28/24 20:00 Temperature 97.7 F Pulse Rate 62 Respiratory Rate 16 16 Blood Pressure 141/64 H Pulse Oximetry 97 97 Oxygen Delivery Mechanical Ventilation Oxygen Flow Rate Fraction of Inspired Oxygen 30 02/28/24 19:00 02/28/24 20:00 02/28/24 19:00 Temperature Pulse Rate 61 62 61 Respiratory Rate 16 16 16 Blood Pressure Pulse Oximetry Oxygen Delivery Oxygen Flow Rate Fraction of Inspired Oxygen 02/28/24 20:00 02/28/24 19:00 02/28/24 19:30 Temperature Pulse Rate 62 61 61 Respiratory Rate 16 16 16 Blood Pressure Pulse Oximetry Oxygen Delivery Oxygen Flow Rate Fraction of Inspired Oxygen 02/28/24 20:00 02/28/24 20:30 02/28/24 21:30 Temperature Pulse Rate 62 62 64 Respiratory Rate 16 18 16 Blood Pressure Pulse Oximetry Oxygen Delivery Oxygen Flow Rate Fraction of Inspired Oxygen 02/28/24 22:00 02/28/24 22:00 02/28/24 22:00 Temperature 98.2 F Pulse Rate 65 65 65 Respiratory Rate 16 16 Blood Pressure 126/68 Pulse Oximetry 98 Oxygen Delivery Oxygen Flow Rate Fraction of Inspired Oxygen 02/28/24 22:00 02/28/24 22:00 02/28/24 23:20 Temperature Pulse Rate 65 65 62 Respiratory Rate 16 16 Blood Pressure Pulse Oximetry 98 Oxygen Delivery Mechanical Ventilation Oxygen Flow Rate Fraction of Inspired Oxygen 30 02/29/24 00:00 02/29/24 00:00 02/29/24 00:00 Temperature Pulse Rate 59 L 59 L 59 L Respiratory Rate 18 18 16 Blood Pressure Pulse Oximetry Oxygen Delivery Oxygen Flow Rate Fraction of Inspired Oxygen 02/29/24 00:16 02/29/24 00:16 02/29/24 00:00 Temperature Pulse Rate 59 L 59 L Respiratory Rate 20 20 18 Blood Pressure Pulse Oximetry 98 Oxygen Delivery Mechanical Ventilation Oxygen Flow Rate Fraction of Inspired Oxygen 02/29/24 00:00 02/29/24 00:00 02/29/24 00:00 Temperature 97.9 F Pulse Rate 59 L 62 Respiratory Rate 18 Blood Pressure 160/82 H Pulse Oximetry 98 Oxygen Delivery Oxygen Flow Rate Fraction of Inspired Oxygen 30 02/29/24 01:00 02/29/24 02:20 02/29/24 02:20 Temperature Pulse Rate 59 L 63 63 Respiratory Rate 17 Blood Pressure 177/80 H Pulse Oximetry 100 Oxygen Delivery Mechanical Ventilation Oxygen Flow Rate Fraction of Inspired Oxygen 30 02/29/24 02:30 02/29/24 02:00 02/29/24 02:00 Temperature 97.7 F Pulse Rate 59 L 58 L 58 L Respiratory Rate 19 18 Blood Pressure 143/72 H Pulse Oximetry 98 Oxygen Delivery Oxygen Flow Rate Fraction of Inspired Oxygen 02/29/24 02:00 02/29/24 02:00 02/29/24 02:00 Temperature Pulse Rate 59 L 59 L 59 L Respiratory Rate 16 16 16 Blood Pressure Pulse Oximetry Oxygen Delivery Oxygen Flow Rate Fraction of Inspired Oxygen 02/29/24 02:38 02/29/24 03:00 02/29/24 04:00 Temperature Pulse Rate 52 L Respiratory Rate 16 16 Blood Pressure Pulse Oximetry 98 Oxygen Delivery Mechanical Ventilation Oxygen Flow Rate Fraction of Inspired Oxygen 30 02/29/24 04:00 02/29/24 04:00 02/29/24 04:00 Temperature 98.1 F Pulse Rate 51 L 51 L 51 L Respiratory Rate 16 16 Blood Pressure 143/75 H Pulse Oximetry 100 Oxygen Delivery Oxygen Flow Rate Fraction of Inspired Oxygen 02/29/24 04:00 02/29/24 04:00 02/29/24 04:13 Temperature Pulse Rate 51 L 51 L 49 L Respiratory Rate 16 16 16 Blood Pressure Pulse Oximetry Oxygen Delivery Oxygen Flow Rate Fraction of Inspired Oxygen 02/29/24 04:47 02/29/24 05:51 02/29/24 06:00 Temperature Pulse Rate 51 L 58 L 51 L Respiratory Rate 16 Blood Pressure Pulse Oximetry 99 Oxygen Delivery Mechanical Ventilation Oxygen Flow Rate Fraction of Inspired Oxygen 30 02/29/24 06:00 02/29/24 06:00 02/29/24 06:00 Temperature 98.2 F Pulse Rate 51 L 51 L 51 L Respiratory Rate 15 16 16 Blood Pressure 149/76 H Pulse Oximetry 99 Oxygen Delivery Oxygen Flow Rate Fraction of Inspired Oxygen 02/29/24 06:00 02/29/24 06:21 02/29/24 06:24 Temperature Pulse Rate 51 L 63 62 Respiratory Rate 16 16 16 Blood Pressure Pulse Oximetry Oxygen Delivery Oxygen Flow Rate Fraction of Inspired Oxygen 02/29/24 06:24 02/28/24 18:00 02/28/24 18:00 Temperature Pulse Rate 62 61 61 Respiratory Rate 16 17 Blood Pressure Pulse Oximetry 98 Oxygen Delivery Mechanical Ventilation Oxygen Flow Rate Fraction of Inspired Oxygen 30 02/29/24 07:59 02/29/24 07:59 02/29/24 07:59 Temperature Pulse Rate 49 L 49 L Respiratory Rate 17 Blood Pressure Pulse Oximetry 99 99 Oxygen Delivery Mechanical Ventilation Mechanical Ventilation Oxygen Flow Rate Fraction of Inspired Oxygen 30 30 02/29/24 08:10 02/29/24 08:37 02/29/24 08:48 Temperature Pulse Rate 50 L 59 L 52 L Respiratory Rate 187 H Blood Pressure Pulse Oximetry 99 Oxygen Delivery Mechanical Ventilation Oxygen Flow Rate Fraction of Inspired Oxygen 30 02/29/24 08:00 02/29/24 08:00 02/29/24 08:00 Temperature 98.2 F Pulse Rate 59 L 51 L Respiratory Rate 19 Blood Pressure 161/79 H Pulse Oximetry 99 Oxygen Delivery Oxygen Flow Rate Fraction of Inspired Oxygen 30 02/29/24 08:00 02/29/24 08:40 02/29/24 08:40 Temperature Pulse Rate 52 L 52 L Respiratory Rate 16 12 12 Blood Pressure Pulse Oximetry 99 Oxygen Delivery Mechanical Ventilation Oxygen Flow Rate Fraction of Inspired Oxygen 02/29/24 08:40 02/29/24 10:05 02/29/24 10:00 Temperature 97.9 F Pulse Rate 52 L 51 L 51 L Respiratory Rate 12 10 L 9 L Blood Pressure 132/67 Pulse Oximetry 99 Oxygen Delivery Oxygen Flow Rate Fraction of Inspired Oxygen 02/29/24 10:00 02/29/24 11:04 02/29/24 12:00 Temperature 97.9 F Pulse Rate 51 L 53 L 53 L Respiratory Rate 18 Blood Pressure 129/72 Pulse Oximetry 98 99 Oxygen Delivery Mechanical Ventilation Oxygen Flow Rate Fraction of Inspired Oxygen 30 02/29/24 12:18 02/29/24 12:10 02/29/24 12:00 Temperature Pulse Rate 65 56 L 52 L Respiratory Rate 11 L Blood Pressure Pulse Oximetry 99 Oxygen Delivery Mechanical Ventilation Oxygen Flow Rate Fraction of Inspired Oxygen 02/29/24 12:00 02/29/24 13:47 02/29/24 13:55 Temperature Pulse Rate 63 62 Respiratory Rate 13 12 Blood Pressure Pulse Oximetry 99 Oxygen Delivery Mechanical Ventilation Oxygen Flow Rate Fraction of Inspired Oxygen 02/29/24 13:46 02/29/24 13:40 02/29/24 14:22 Temperature Pulse Rate 63 58 L Respiratory Rate 10 L Blood Pressure Pulse Oximetry 99 97 Oxygen Delivery Mechanical Ventilation Nasal Cannula Oxygen Flow Rate 2 Fraction of Inspired Oxygen 28 02/29/24 14:00 02/29/24 14:00 Temperature 98.1 F Pulse Rate 63 61 Respiratory Rate 10 L Blood Pressure 162/73 H Pulse Oximetry 98 Oxygen Delivery Oxygen Flow Rate Fraction of Inspired Oxygen Intake/Output Intake/Output: Intake & Output 02/26/24 02/27/24 02/28/24 02/29/24 23:59 23:59 23:59 23:59 Intake Total 1069.6 1776.5 2632.2 768.7 Output Total 2500 1200 1800 1000 Balance -1430.4 576.5 832.2 -231.3 Meds/Results Medications: Active Medications Generic Name Dose Route Start Last Admin Trade Name Freq PRN Reason Stop Dose Admin Acetaminophen 650 mg 02/25/24 10:29 Acetaminophen 325 Mg Tablet PO Q6H PRN Mild Pain (1-3) or Fever Albuterol 2.5 mg 02/25/24 21:20 Albuterol Sulfate Neb 2.5 Mg/3 Ml Inh INHALATION Q6HRT PRN Shortness Of Breath Albuterol/Ipratropium 3 ml 02/26/24 02:00 02/29/24 13:47 Ipratropium 0.5 Mg/Albuterol Sulfate 2.5 Mg Ampul.Neb 3 Ml INHALATION 3 ml Q6HRT JAQUI Administration Amlodipine Besylate 10 mg 02/28/24 09:00 02/29/24 08:47 Amlodipine Besylate 10 Mg Tablet PO 10 mg DAILY JAQUI Administration Aspirin 81 mg 02/24/24 09:00 02/29/24 08:48 Aspirin 81 Mg Chewable Tablet PO 81 mg DAILY JAQUI Administration Carvedilol 25 mg 02/28/24 21:00 02/29/24 08:48 Carvedilol 25 Mg Tablet PO 25 mg Q12HR JAQUI Administration Dextrose 12.5 gm 02/26/24 04:22 Dextrose 50% 25 Gm/50 Ml Syringe IV PUSH PRN PRN Hypoglycemia Protocol Empagliflozin 10 mg 02/27/24 09:00 02/29/24 08:48 Empagliflozin 10 Mg Tablet PO 10 mg DAILY JAQUI Administration Enoxaparin Sodium 40 mg 02/27/24 09:00 02/29/24 08:48 Enoxaparin 40 Mg/0.4 Ml Syringe SUB-Q 40 mg DAILY JAQUI Administration Glucagon 1 mg 02/26/24 04:22 Glucagon For Inj 1 Mg Vial IM PRN PRN Hypoglycemia Protocol Glucose 15 gm 02/26/24 04:22 Glucose Oral Gel 15 Gm Of Glucse In 37.5 Gm Tube PO PRN PRN Hypoglycemia Protocol Hydralazine HCl 10 mg 02/26/24 07:49 02/29/24 15:20 Hydralazine Hcl 20 Mg/Ml Vial IV PUSH 10 mg Q4H PRN Administration Blood Pressure - High Hydralazine HCl 25 mg 02/28/24 12:00 02/29/24 13:00 Hydralazine Hcl 25 Mg Tablet PO 25 mg WMHS JAQUI Administration Ceftriaxone Sodium 2 gm in 100 mls @ 200 mls/hr 02/25/24 21:00 02/28/24 23:56 Rocephin 2 Gm/Ns 100 Ml IVPB 03/03/24 20:59 Infused Q24H JAQUI Infusion Azithromycin 500 mg in 250 mls @ 250 mls/hr 02/25/24 22:00 02/28/24 23:56 Zithromax IVPB 03/01/24 21:59 Infused Q24H JAQUI Infusion Fentanyl Citrate 2,500 mcg in 250 mls @ 2.5 mls/hr 02/26/24 00:35 02/29/24 08:40 Fentanyl 2,500 Mcg/Ns 250 Ml IV CONT 0 mcg/hr .Q72H JAQUI 0 mls/hr Titration Protocol 25 MCG/HR Midazolam HCl 100 mg in 100 mls @ 0 mls/hr 02/26/24 00:35 02/29/24 08:40 Versed 100 Mg/Ns 100 Ml IV CONT 0 mg/hr .Q0M JAQUI 0 mls/hr Titration Protocol 0 MG/HR Dextrose 1,000 mls @ 100 mls/hr 02/26/24 04:22 Dextrose 5% 1,000 Ml IVPB PRN PRN Hypoglycemia Protocol Metronidazole 500 mg in 100 mls @ 100 mls/hr 02/26/24 08:00 02/29/24 13:00 Flagyl 500 Mg/Iso Soln 100 Ml IVPB 03/02/24 07:59 100 mls/hr Q8HR JAQUI Administration Insulin Aspart 4 - 8 units 02/29/24 09:00 02/29/24 13:01 Insulin Aspart (*Bkc) 100 Units/Ml SUB-Q 4 units Q4HR JAQUI Administration Protocol Insulin Glargine 15 units 02/27/24 09:00 02/29/24 08:48 Insulin Glargine (*Bkc) 100 Units/Ml SUB-Q 15 units DAILY JAQUI Administration Labetalol HCl 10 mg 02/25/24 21:30 02/25/24 22:18 Labetalol Hcl Inj 100 Mg/20 Ml Vial IV PUSH 10 mg Q12HR JAQUI Administration Methylprednisolone Sodium Succinate 40 mg 02/28/24 06:00 02/29/24 13:00 Methylprednisolone Sod Succ 40 Mg Vial IV PUSH 03/01/24 05:59 40 mg Q8H JAQUI Administration Multi-Ingred Cream/Lotion/Oil/Oint 1 applic 02/26/24 09:00 02/29/24 08:48 Mineral Oil/White Petrolatum Ointment EACH EYE 1 applic Q12HR JAQUI Administration Nicotine 1 patch 02/26/24 09:00 02/29/24 08:48 Nicotine (*Pbkc) 21 Mg Patch TRANSDERM 1 patch DAILY JAQUI Administration Ondansetron HCl 4 mg 02/25/24 20:59 Ondansetron Inj 4 Mg/2 Ml Vial IV PUSH Q6H PRN Nausea And Vomiting Pantoprazole Sodium 40 mg 02/26/24 09:00 02/29/24 08:49 Pantoprazole Sodium Iv 40 Mg Vial IV PUSH 40 mg Q12HR JAQUI Administration Sitagliptin Phosphate 100 mg 02/24/24 09:00 02/25/24 08:48 Sitagliptin Phosphate 100 Mg Tablet PO 100 mg DAILY JAQUI Administration Radiology Results: ITS Impressions Head CT 02/23/24 23:50 IMPRESSION: 1. 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 2. Stable extensive nonspecific cerebral white matter disease, which likely represents chronic small vessel ischemic disease. Abdomen/Pelvis CT 02/23/24 23:52 IMPRESSION: 1. No etiology for the patient's symptoms. Abdomen X-Ray 02/25/24 21:52 IMPRESSION: 1. Nasogastric tube in stomach. 2. Mild pulmonary edema. Renal Ultrasound 02/28/24 10:53 IMPRESSION: 1. A couple nonobstructing left renal stones. No hydronephrosis in either kidney. Chest X-Ray 02/29/24 06:25 Impression: Clear lungs. Support tubes, as above. Venous Doppler Study 02/29/24 12:29 IMPRESSION: 1: No lower extremity deep venous thrombosis. Labs Labs: Laboratory Results - last 24 hr 02/28/24 02/28/24 02/29/24 18:10 23:53 04:30 WBC 10.9 H RBC 4.44 Hgb 12.8 Hct 40.5 MCV 91.2 MCH 28.8 MCHC 31.6 L RDW 14.1 Plt Count 177 MPV 12.9 H Immature Gran % (Auto) 0.6 H Neut % (Auto) 87.7 H Lymph % (Auto) 9.6 L [place] % (Auto) 2.0 L Eos % (Auto) 0.0 Baso % (Auto) 0.1 L Lymph # (Auto) 1.04 [place] # (Auto) 0.2 Eos # (Auto) 0.0 Baso # (Auto) 0.0 Abs Immat Gran (auto) 0.07 H Absolute Neuts (auto) 9.5 H Absolute Nucleated RBC 0.000 Nucleated RBC % 0.0 Puncture Site ABG pH ABG pCO2 ABG pO2 ABG PO2/FiO2 Ratio ABG HCO3 ABG O2 Saturation ABG O2 Content ABG Base Excess A-a Gradient Oxyhemoglobin Carboxyhemoglobin Methemoglobin Reduced Hemoglobin Total Hemoglobin O2 Delivery Device O2 Liters/Min Minute Volume Vent Rate Vent Mode FiO2 Tidal Volume PEEP Peak Inspir Pressure Pressure Support Sodium 148 H Potassium 4.3 Chloride 113 H Carbon Dioxide 24 Anion Gap 11 BUN 56 H Creatinine 1.40 H Estim Creat Clear Calc 35 Estimated GFR 38 L Glucose 224 H POC Capillary Glucose 167 H 237 H Calcium 8.7 Phosphorus 4.5 Magnesium 2.8 H Total Bilirubin 0.2 AST 16 ALT 15 Alkaline Phosphatase 64 Total Protein 7.0 Albumin 3.4 L 02/29/24 02/29/24 02/29/24 04:38 08:46 12:37 WBC RBC Hgb Hct MCV MCH MCHC RDW Plt Count MPV Immature Gran % (Auto) Neut % (Auto) Lymph % (Auto) [place] % (Auto) Eos % (Auto) Baso % (Auto) Lymph # (Auto) [place] # (Auto) Eos # (Auto) Baso # (Auto) Abs Immat Gran (auto) Absolute Neuts (auto) Absolute Nucleated RBC Nucleated RBC % Puncture Site Right radial ABG pH 7.473 H ABG pCO2 35.8 ABG pO2 92.6 ABG PO2/FiO2 Ratio 3.09 ABG HCO3 25.6 ABG O2 Saturation 97.5 ABG O2 Content 17.6 ABG Base Excess 2.3 A-a Gradient 79.2 Oxyhemoglobin 96.5 Carboxyhemoglobin 0.4 Methemoglobin 0.3 Reduced Hemoglobin 2.8 Total Hemoglobin 12.9 O2 Delivery Device Ventilator O2 Liters/Min Not Reportable Minute Volume Not Reportable Vent Rate 16 Vent Mode Cmv FiO2 30 Tidal Volume 400 PEEP 5 Peak Inspir Pressure Not Reportable Pressure Support Not Reportable Sodium Potassium Chloride Carbon Dioxide Anion Gap BUN Creatinine Estim Creat Clear Calc Estimated GFR Glucose POC Capillary Glucose 219 H 241 H Calcium Phosphorus Magnesium Total Bilirubin AST ALT Alkaline Phosphatase Total Protein Albumin 02/29/24 13:46 WBC RBC Hgb Hct MCV MCH MCHC RDW Plt Count MPV Immature Gran % (Auto) Neut % (Auto) Lymph % (Auto) [place] % (Auto) Eos % (Auto) Baso % (Auto) Lymph # (Auto) [place] # (Auto) Eos # (Auto) Baso # (Auto) Abs Immat Gran (auto) Absolute Neuts (auto) Absolute Nucleated RBC Nucleated RBC % Puncture Site Right brachial ABG pH 7.436 ABG pCO2 42.7 ABG pO2 96.2 ABG PO2/FiO2 Ratio 3.21 ABG HCO3 28.1 H ABG O2 Saturation 97.5 ABG O2 Content 17.6 ABG Base Excess 3.5 A-a Gradient 67.5 Oxyhemoglobin 96.6 Carboxyhemoglobin Methemoglobin Reduced Hemoglobin Total Hemoglobin 12.9 O2 Delivery Device Ventilator O2 Liters/Min Not Reportable Minute Volume Not Reportable Vent Rate Not Reportable Vent Mode Spontaneous FiO2 30 Tidal Volume Not Reportable PEEP 5 Peak Inspir Pressure Not Reportable Pressure Support 5 Sodium Potassium Chloride Carbon Dioxide Anion Gap BUN Creatinine Estim Creat Clear Calc Estimated GFR Glucose POC Capillary Glucose Calcium Phosphorus Magnesium Total Bilirubin AST ALT Alkaline Phosphatase Total Protein Albumin Quality VTE Prophylaxis VTE prophylaxis: pharmacologic ordered
[2024-02-29 17:02] LABS: Glucose Point of Care 159 mg/dl (65-105)
[2024-02-29 21:39] LABS: Triglycerides 152 mg/dL (<150)
[2024-02-29] MEDS: AZITHROMYCIN 500 MG/NS 250 ML 500 MG/250 ML BAG 250 MG IVPB (21:59)
[2024-02-29] MEDS: cefTRIAXone 2 GM/NS 100 ML 2 GM/100 ML BAG IVPB (23:55)
[2024-03-01] VITALS (26 sets, daily range): BP systolic 129–230; BP diastolic 65–104; PULSE 65–104; RESP 12–26; TEMP 36.4–37.1; O2SAT 95–100
[2024-03-01 01:44] LABS: Glucose Point of Care 166 mg/dl (65-105)
[2024-03-01] MEDS: IPRATROPIUM 0.5 MG/ALBUTEROL SULFATE 2.5 MG AMPUL.NEB 3 ML INHALATION ×2 (01:45→08:01)
[2024-03-01] MEDS: hydrALAZINE HCL 20 MG/ML VIAL 10 MG IV PUSH (01:50)
[2024-03-01 04:40] LABS: Alveolar/Arterial O2 Gradient 100.6 mmHg; Base Excess ABG 2.8 mEq/l (+/-2.0); Carboxyhemoglobin 0.8 % THb (0-2.0); Fractional Inspired Oxygen 28 %; HCO3 ABG 24.7 mEq/l (22.0-26.0); Methemoglobin ABG 0.1 %THb (0-1.5); Oxygen Content ABG 18.8 %vol (16.0-22.0); Oxygen Saturation ABG 94.6 % (95.0-100.0); Oxyhemoglobin 92.7 % THb (90.0-100.0); PCO2 ABG 30.2 mmHg (35.0-45.0); PO2 ABG 63.4 mmHg (80.0-100.0); PO2 FiO2 Ratio Arterial Blood 2.26 %; Reduced Hemoglobin 6.4 %THb (0-5.0); Total Hemoglobin 14.4 g/dL (12.0-18.0)
[2024-03-01 04:41] LABS: Modified Allen's Test Pass; Site Drawn LEFT RADIAL
[2024-03-01 04:42] LABS: Basophils Percent Auto 0.2 % (0.2-1.2); Hematocrit 44.4 % (37.0-47.0); Hemoglobin 14.5 g/dL (12.0-15.0); Immature Granulocyte Absolute 0.32 K/mm3 (0.00-0.031); Immature Granulocyte Percent A 2.3 % (0-0.5); Lymphocytes Absolute Auto 1.03 K/mm3 (0.9-3.2); Lymphocytes Percent Auto 7.3 % (18.3-44.2); Mean Corpuscular HGB Conc 32.7 g/dl (32-36); Mean Corpuscular Hemoglobin 29.2 pg (26-34); Mean Corpuscular Volume 89.5 fl (80-100); Mean Platelet Volume 12.5 fl (7.4-10.4); Monocytes Absolute Auto 0.3 K/mm3 (0.1-0.6); Monocytes Percent Auto 2.3 % (2.6-8.5); Neutrophils Absolute Auto 12.3 K/mm3 (1.3-6.7); Neutrophils Percent Auto 87.9 % (45.5-73.1); Platelet Count Result 253 k/mm3 (150-375); Red Blood Count 4.96 M/mm3 (4.2-5.4); Red Cell Distribution Width 14.2 % (11.5-14.5)
[2024-03-01 04:42] LABS: Device NASAL CANNULA
[2024-03-01] MEDS: niCARdipine 20 MG/200 ML 20 MG/200 ML BAG 50 MG IV CONT ×2 (04:54→08:06)
[2024-03-01 04:55] LABS: Alanine Aminotransferase 18 U/L (6-35); Alkaline Phosphatase 83 U/L (38-126); Anion Gap 14 mmol/L (4-12); Aspartate Amino Transferase 24 U/L (14-36); Bilirubin,Total 0.6 mg/dL (0.2-1.3); Blood Urea Nitrogen 55 mg/dL (7-17); Calcium 9.1 mg/dL (8.4-10.2); Carbon Dioxide 25 mmol/L (22-30); Chloride 111 mmol/L (98-107); Estimated CRCL calculation 35 ml/min; Estimated Glomerular Filt Rate 38; Glucose 161 mg/dL (65-110); Magnesium 2.7 mg/dL (1.6-2.3); Phosphorus 4.1 mg/dL (2.5-4.5); Potassium 3.6 mmol/L (3.4-5.0); Sodium 150 mmol/L (137-145)
--- NOTE | 2024-03-01 09:06 | P.PNINT_ITS ---
Progress Note: A&P Assessment and Plan (1) Respiratory failure: Qualifiers: Chronicity: acute Respiratory failure complication: hypoxia Qualified Code(s): J96.01 - Acute respiratory failure with hypoxia Code(s): J96.90 - Respiratory failure, unspecified, unspecified whether with hypoxia or hypercapnia Status: Acute Assessment and Plan: 02/24/2024: Patient initially presented with nausea, vomiting, hypertensive urgency -on the night of 02/25/2024, patient had significant dyspnea, hypoxia with O2 sats in the 50s to 70 with central cyanosis, she was in impending respiratory failure -02/25/2024: Intubated on the medical floor and transferred to ICU for further management 02/28 extubated after a successful weaning trial On nasal cannula. Will add incentive spirometry. (2) Pulmonary edema: Qualifiers: Chronicity: acute Qualified Code(s): J81.0 - Acute pulmonary edema Code(s): J81.1 - Chronic pulmonary edema Status: Acute Assessment and Plan: Pulmonary edema could be multifactorial likely related to hypertensive urgency, mitral regurg, CHF more pulmonary hypertension -patient on previous admissions was on hydralazine, losartan, amlodipine and clonidine. Continue scheduled hydralazine, Coreg and amlodipine. 02/27/2024: Echocardiogram Summary 1. Left ventricular chamber dimension is normal. 2. There is mildly increased left ventricular wall thickness. 3. Left ventricular systolic function is normal, estimated at 60-65%. 4. There is no aortic valve stenosis. 5. There is no aortic valve regurgitation. 6. There is no mitral valve stenosis. 7. There is no mitral valve regurgitation. 8. The left ventricular diastolic function is grade I diastolic dysfunctio (3) Pneumonia: Qualifiers: Pneumonia type: aspiration pneumonia Aspiration pneumonia type: due to gastric secretions Laterality: unspecified laterality Code(s): J18.9 - Pneumonia, unspecified organism Status: Acute Assessment and Plan: Patient did have nausea, vomiting prior to admission, he also has been having dry heaves when she was in the hospital, sudden acute onset respiratory failure, suspect aspiration versus pulmonary edema -continue ceftriaxone, azithromycin,Flagyl -discontinue methylprednisolone (4) Acute exacerbation of CHF (congestive heart failure): Qualifiers: Heart failure type: unspecified Qualified Code(s): I50.9 - Heart failure, unspecified Code(s): I50.9 - Heart failure, unspecified Status: Acute Assessment and Plan: Patient with hypertensive urgency, pulmonary edema, hypoxemia, requiring intubation -restarted home Jardiance -hold diuresis, manage hypertension -echocardiogram this admission as above Echocardiogram 11/10/2022: Summary 1. Complete two-dimensional, color flow and Doppler transthoracic echocardiogram is performed. 2. Left ventricular chamber dimension is normal. 3. Left ventricular systolic function is normal, estimated at 55-60%. 4. There is severely increased left ventricular wall thickness. 5. The left ventricular diastolic function is grade II diastolic dysfunction. 6. Left atrial chamber dimension is mildly enlarged. 7. There is moderate mitral valve regurgitation. 8. The mitral valve has thickened leaflets. 9. Mild pulmonary hypertension, estimated pulmonary arterial systolic pressure is 44 mmHg (5) Acute kidney injury: Code(s): N17.9 - Acute kidney failure, unspecified Status: Acute Assessment and Plan: Acute on chronic kidney disease, could be related congestive changes, hypertension, diabetes, chronic kidney disease -patient has been diuresing well -will hold diuresis his elevated BUN and creatinine -nephrology has been consulted -monitor urine output, renal function electrolytes 02/27: Renal ultrasound showed a couple of nonobstructing left renal stones, no hydronephrosis in either kidney (6) History of diabetes mellitus: Code(s): Z86.39 - Personal history of other endocrine, nutritional and metabolic disease Status: Acute Assessment and Plan: Continue Accu-Cheks and sliding scale insulin, continue Lantus -hemoglobin A1c was 7.3 this admission (7) Hypertensive urgency: Code(s): I16.0 - Hypertensive urgency Status: Acute Assessment and Plan: Post ex patient blood pressure has been elevated and patient was started on nicardipine infusion. Resume Coreg, Norvasc and hydralazine this morning and try to wean off nicardipine infusion (8) Mitral regurgitation: Code(s): I34.0 - Nonrheumatic mitral (valve) insufficiency Status: Acute Assessment and Plan: History of moderate mitral valve regurgitation on echocardiogram done in October of 2002 Echocardiogram as above (9) Electrolyte abnormality: Code(s): E87.8 - Other disorders of electrolyte and fluid balance, not elsewhere classified Status: Acute Assessment and Plan: Will give 500 mL of D5 water for hypernatremia Plan DVT prophylaxis: Lovenox Stress ulcer prophylaxis: Protonix Nutrition: Advance diet Code Status: Full code Critical Care Time Spent: 30 minutes Subjective Date/time seen: 03/01/24 Patient was extubated after a successful weaning trial. Currently on nasal cannula. Blood pressure elevated through the night and was started on nicardipine infusion. This morning she states she feels better and denies any complaints and would like some breakfast. Patient denies fever, chest pain, shortness of breath, cough, nausea vomiting, abdominal pain,, diarrhea, headache all other systems were reviewed and were negative. Interval history: Reason for consult: Acute respiratory failure, possible aspiration, pulmonary edema, pneumonia Review of Systems Review of Systems: All systems reviewed & are unremarkable except as noted in HPI and below (Subjective) Exam Narrative: General: Alert awake and in no distress HEENT:? Pupils equal and reactive, sclerae is clear, Neck:? Supple Respiratory:? Coarse breath sounds bilaterally, decreased at bases, no wheezing Cardiac:? S1-S2 normal, regular rate and rhythm systolic murmur present Abdomen:? Soft, nontender, nondistended, hypoactive bowel sounds Extremities:? Trace ankle and foot edema right > left, palpable pedal pulses Neuro:? AO x1. Moves all 4 extremities. Follows commands Skin:? Warm and dry Objective Data Vital Signs Vital Signs: Vital Signs - 24 hr 02/29/24 10:05 02/29/24 10:00 02/29/24 10:00 Temperature 36.6 C Pulse Rate 51 L 51 L 51 L Respiratory Rate 10 L 9 L Blood Pressure 132/67 Pulse Oximetry 99 Oxygen Delivery Oxygen Flow Rate Fraction of Inspired Oxygen 02/29/24 11:04 02/29/24 12:00 02/29/24 12:18 Temperature 36.6 C Pulse Rate 53 L 53 L 65 Respiratory Rate 18 Blood Pressure 129/72 Pulse Oximetry 98 99 99 Oxygen Delivery Mechanical Ventilation Mechanical Ventilation Oxygen Flow Rate Fraction of Inspired Oxygen 30 02/29/24 12:10 02/29/24 12:00 02/29/24 12:00 Temperature Pulse Rate 56 L 52 L Respiratory Rate 11 L Blood Pressure Pulse Oximetry 99 Oxygen Delivery Mechanical Ventilation Oxygen Flow Rate Fraction of Inspired Oxygen 02/29/24 13:47 02/29/24 13:55 02/29/24 13:46 Temperature Pulse Rate 63 62 63 Respiratory Rate 13 12 Blood Pressure Pulse Oximetry 99 Oxygen Delivery Mechanical Ventilation Oxygen Flow Rate Fraction of Inspired Oxygen 02/29/24 13:40 02/29/24 14:22 02/29/24 14:00 Temperature Pulse Rate 58 L 63 Respiratory Rate 10 L Blood Pressure Pulse Oximetry 97 Oxygen Delivery Nasal Cannula Oxygen Flow Rate 2 Fraction of Inspired Oxygen 28 02/29/24 14:00 02/29/24 14:22 02/29/24 16:05 Temperature 36.7 C Pulse Rate 61 72 Respiratory Rate 10 L 18 Blood Pressure 162/73 H 168/71 H Pulse Oximetry 98 98 96 Oxygen Delivery Nasal Cannula Oxygen Flow Rate 2 Fraction of Inspired Oxygen 02/29/24 16:00 02/29/24 16:00 02/29/24 15:53 Temperature Pulse Rate 68 Respiratory Rate 18 Blood Pressure Pulse Oximetry 98 96 Oxygen Delivery Autopap BiPAP Oxygen Flow Rate Fraction of Inspired Oxygen 02/29/24 18:00 02/29/24 18:00 02/29/24 18:25 Temperature 36.8 C Pulse Rate 72 82 82 Respiratory Rate 16 Blood Pressure 194/81 H Pulse Oximetry 98 Oxygen Delivery Oxygen Flow Rate Fraction of Inspired Oxygen 02/29/24 20:50 02/29/24 20:57 02/29/24 21:24 Temperature Pulse Rate 82 80 Respiratory Rate 19 14 Blood Pressure Pulse Oximetry 97 Oxygen Delivery Nasal Cannula Oxygen Flow Rate 2 Fraction of Inspired Oxygen 02/29/24 23:00 02/29/24 20:00 03/01/24 00:00 Temperature Pulse Rate 83 83 83 Respiratory Rate 14 14 14 Blood Pressure Pulse Oximetry 97 97 97 Oxygen Delivery BiPAP Room Air Room Air Oxygen Flow Rate Fraction of Inspired Oxygen 03/01/24 01:47 03/01/24 01:52 02/29/24 20:00 Temperature Pulse Rate 101 H 104 H 77 Respiratory Rate 26 H 23 H Blood Pressure Pulse Oximetry Oxygen Delivery Oxygen Flow Rate Fraction of Inspired Oxygen 02/29/24 22:00 03/01/24 00:00 03/01/24 02:00 Temperature Pulse Rate 85 70 102 H Respiratory Rate Blood Pressure Pulse Oximetry Oxygen Delivery Oxygen Flow Rate Fraction of Inspired Oxygen 03/01/24 04:00 03/01/24 06:00 02/29/24 20:00 Temperature 36.8 C Pulse Rate 97 86 77 Respiratory Rate 15 Blood Pressure 189/88 H Pulse Oximetry 98 Oxygen Delivery Oxygen Flow Rate Fraction of Inspired Oxygen 02/29/24 22:00 03/01/24 00:00 03/01/24 02:00 Temperature 36.8 C Pulse Rate 85 80 102 H Respiratory Rate 18 12 18 Blood Pressure 194/85 H 194/84 H 200/93 H Pulse Oximetry 100 97 100 Oxygen Delivery Oxygen Flow Rate Fraction of Inspired Oxygen 03/01/24 04:00 03/01/24 06:00 03/01/24 04:54 Temperature 36.4 C L Pulse Rate 97 86 82 Respiratory Rate 15 15 Blood Pressure 230/100 H 165/85 H 227/99 H Pulse Oximetry 100 100 Oxygen Delivery Oxygen Flow Rate Fraction of Inspired Oxygen 03/01/24 06:18 03/01/24 02:00 03/01/24 08:01 Temperature Pulse Rate 82 83 Respiratory Rate 14 Blood Pressure 165/85 H Pulse Oximetry 96 95 Oxygen Delivery BiPAP Nasal Cannula Oxygen Flow Rate 1 Fraction of Inspired Oxygen 03/01/24 08:01 03/01/24 08:11 03/01/24 07:50 Temperature Pulse Rate 87 90 81 Respiratory Rate 20 22 H Blood Pressure 186/85 H Pulse Oximetry Oxygen Delivery Oxygen Flow Rate Fraction of Inspired Oxygen Intake/Output Intake/Output: Intake & Output 02/27/24 02/28/24 02/29/24 03/01/24 23:59 23:59 23:59 23:59 Intake Total 1776.5 2632.2 868.7 146.7 Output Total 1200 1800 1950 975 Balance 576.5 832.2 -1081.3 -828.3 Meds/Results Medications: Active Medications Generic Name Dose Route Start Last Admin Trade Name Freq PRN Reason Stop Dose Admin Acetaminophen 650 mg 02/25/24 10:29 Acetaminophen 325 Mg Tablet PO Q6H PRN Mild Pain (1-3) or Fever Albuterol/Ipratropium 3 ml 03/01/24 08:10 Ipratropium 0.5 Mg/Albuterol Sulfate 2.5 Mg Ampul.Neb 3 Ml INHALATION Q6HRT PRN Wheezing or SOB Amlodipine Besylate 10 mg 02/28/24 09:00 02/29/24 08:47 Amlodipine Besylate 10 Mg Tablet PO 10 mg DAILY JAQUI Administration Aspirin 81 mg 02/24/24 09:00 02/29/24 08:48 Aspirin 81 Mg Chewable Tablet PO 81 mg DAILY JAQUI Administration Carvedilol 25 mg 02/28/24 21:00 02/29/24 18:25 Carvedilol 25 Mg Tablet PO 25 mg Q12HR JAQUI Administration Dextrose 12.5 gm 02/26/24 04:22 Dextrose 50% 25 Gm/50 Ml Syringe IV PUSH PRN PRN Hypoglycemia Protocol Empagliflozin 10 mg 02/27/24 09:00 02/29/24 08:48 Empagliflozin 10 Mg Tablet PO 10 mg DAILY JAQUI Administration Enoxaparin Sodium 40 mg 02/27/24 09:00 02/29/24 08:48 Enoxaparin 40 Mg/0.4 Ml Syringe SUB-Q 40 mg DAILY JAQUI Administration Glucagon 1 mg 02/26/24 04:22 Glucagon For Inj 1 Mg Vial IM PRN PRN Hypoglycemia Protocol Glucose 15 gm 02/26/24 04:22 Glucose Oral Gel 15 Gm Of Glucse In 37.5 Gm Tube PO PRN PRN Hypoglycemia Protocol Hydralazine HCl 25 mg 02/28/24 12:00 02/29/24 18:25 Hydralazine Hcl 25 Mg Tablet PO 25 mg WMHS JAQUI Administration Hydralazine HCl 20 mg 03/01/24 08:04 Hydralazine Hcl 20 Mg/Ml Vial IV PUSH Q4H PRN Blood Pressure - High Ceftriaxone Sodium 2 gm in 100 mls @ 200 mls/hr 02/25/24 21:00 02/29/24 23:55 Rocephin 2 Gm/Ns 100 Ml IVPB 03/03/24 20:59 200 mls/hr Q24H JAQUI Administration Azithromycin 500 mg in 250 mls @ 250 mls/hr 02/25/24 22:00 02/29/24 21:59 Zithromax IVPB 03/01/24 21:59 250 mls/hr Q24H JAQUI Administration Dextrose 1,000 mls @ 100 mls/hr 02/26/24 04:22 Dextrose 5% 1,000 Ml IVPB PRN PRN Hypoglycemia Protocol Metronidazole 500 mg in 100 mls @ 100 mls/hr 02/26/24 08:00 02/29/24 21:59 Flagyl 500 Mg/Iso Soln 100 Ml IVPB 03/02/24 07:59 100 mls/hr Q8HR JAQUI Administration Nicardipine/Sodium Chloride 20 mg in 200 mls @ 75 mls/hr 03/01/24 03:45 03/01/24 07:50 Cardene 20 Mg/200 Ml Ns IV CONT 7.5 mg/hr .Q2H40M JAQUI 75 mls/hr Titration Protocol 7.5 MG/HR Dextrose 500 mls @ 100 mls/hr 03/01/24 08:05 Dextrose 5% In Water IV CONT 03/01/24 13:04 .Q5H JAQUI Insulin Aspart 4 - 8 units 02/29/24 09:00 03/01/24 06:18 Insulin Aspart (*Bkc) 100 Units/Ml SUB-Q Not Given Q4HR JAQUI Protocol Insulin Glargine 15 units 02/27/24 09:00 02/29/24 08:48 Insulin Glargine (*Bkc) 100 Units/Ml SUB-Q 15 units DAILY JAQUI Administration Multi-Ingred Cream/Lotion/Oil/Oint 1 applic 02/26/24 09:00 02/29/24 22:00 Mineral Oil/White Petrolatum Ointment EACH EYE 1 applic Q12HR JAQUI Administration Ondansetron HCl 4 mg 02/25/24 20:59 Ondansetron Inj 4 Mg/2 Ml Vial IV PUSH Q6H PRN Nausea And Vomiting Pantoprazole Sodium 40 mg 02/26/24 09:00 02/29/24 21:59 Pantoprazole Sodium Iv 40 Mg Vial IV PUSH 40 mg Q12HR JAQUI Administration Sitagliptin Phosphate 100 mg 02/24/24 09:00 02/25/24 08:48 Sitagliptin Phosphate 100 Mg Tablet PO 100 mg DAILY JAQUI Administration Radiology Results: ITS Impressions Head CT 02/23/24 23:50 IMPRESSION: 1. 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 2. Stable extensive nonspecific cerebral white matter disease, which likely represents chronic small vessel ischemic disease. Abdomen/Pelvis CT 02/23/24 23:52 IMPRESSION: 1. No etiology for the patient's symptoms. Abdomen X-Ray 02/25/24 21:52 IMPRESSION: 1. Nasogastric tube in stomach. 2. Mild pulmonary edema. Renal Ultrasound 02/28/24 10:53 IMPRESSION: 1. A couple nonobstructing left renal stones. No hydronephrosis in either kidney. Venous Doppler Study 02/29/24 12:29 IMPRESSION: 1: No lower extremity deep venous thrombosis. Chest X-Ray 03/01/24 06:08 Impression: Focal opacity left lung base, which could reflect focal pneumonia or possibly atelectatic change. Continued follow-up advised. Labs Labs: Laboratory Results - last 24 hr 02/29/24 02/29/24 02/29/24 12:37 13:46 16:58 WBC RBC Hgb Hct MCV MCH MCHC RDW Plt Count MPV Immature Gran % (Auto) Neut % (Auto) Lymph % (Auto) Wheeler % (Auto) Eos % (Auto) Baso % (Auto) Lymph # (Auto) Wheeler # (Auto) Eos # (Auto) Baso # (Auto) Abs Immat Gran (auto) Absolute Neuts (auto) Absolute Nucleated RBC Nucleated RBC % Puncture Site Right brachial ABG pH 7.436 ABG pCO2 42.7 ABG pO2 96.2 ABG PO2/FiO2 Ratio 3.21 ABG HCO3 28.1 H ABG O2 Saturation 97.5 ABG O2 Content 17.6 ABG Base Excess 3.5 A-a Gradient 67.5 Oxyhemoglobin 96.6 Carboxyhemoglobin Methemoglobin Reduced Hemoglobin Total Hemoglobin 12.9 O2 Delivery Device Ventilator O2 Liters/Min Not Reportable Minute Volume Not Reportable Vent Rate Not Reportable Vent Mode Spontaneous FiO2 30 Tidal Volume Not Reportable PEEP 5 Peak Inspir Pressure Not Reportable Pressure Support 5 Sodium Potassium Chloride Carbon Dioxide Anion Gap BUN Creatinine Estim Creat Clear Calc Estimated GFR Glucose POC Capillary Glucose 241 H 159 H Calcium Phosphorus Magnesium Total Bilirubin AST ALT Alkaline Phosphatase Total Protein Albumin Triglycerides 02/29/24 03/01/24 03/01/24 21:17 01:05 04:10 WBC RBC Hgb Hct MCV MCH MCHC RDW Plt Count MPV Immature Gran % (Auto) Neut % (Auto) Lymph % (Auto) Wheeler % (Auto) Eos % (Auto) Baso % (Auto) Lymph # (Auto) Wheeler # (Auto) Eos # (Auto) Baso # (Auto) Abs Immat Gran (auto) Absolute Neuts (auto) Absolute Nucleated RBC Nucleated RBC % Puncture Site Left radial ABG pH 7.530 H* ABG pCO2 30.2 L ABG pO2 63.4 L ABG PO2/FiO2 Ratio 2.26 ABG HCO3 24.7 ABG O2 Saturation 94.6 L ABG O2 Content 18.8 ABG Base Excess 2.8 A-a Gradient 100.6 Oxyhemoglobin 92.7 Carboxyhemoglobin 0.8 Methemoglobin 0.1 Reduced Hemoglobin 6.4 H Total Hemoglobin 14.4 O2 Delivery Device Nasal cannula O2 Liters/Min 2.0 Minute Volume Vent Rate Vent Mode FiO2 28 Tidal Volume PEEP Peak Inspir Pressure Pressure Support Sodium Potassium Chloride Carbon Dioxide Anion Gap BUN Creatinine Estim Creat Clear Calc Estimated GFR Glucose POC Capillary Glucose 166 H Calcium Phosphorus Magnesium Total Bilirubin AST ALT Alkaline Phosphatase Total Protein Albumin Triglycerides 152 H 03/01/24 04:36 WBC 14.0 H RBC 4.96 Hgb 14.5 Hct 44.4 MCV 89.5 MCH 29.2 MCHC 32.7 RDW 14.2 Plt Count 253 MPV 12.5 H Immature Gran % (Auto) 2.3 H Neut % (Auto) 87.9 H Lymph % (Auto) 7.3 L Wheeler % (Auto) 2.3 L Eos % (Auto) 0.0 Baso % (Auto) 0.2 Lymph # (Auto) 1.03 Wheeler # (Auto) 0.3 Eos # (Auto) 0.0 Baso # (Auto) 0.0 Abs Immat Gran (auto) 0.32 H Absolute Neuts (auto) 12.3 H Absolute Nucleated RBC 0.000 Nucleated RBC % 0.0 Puncture Site ABG pH ABG pCO2 ABG pO2 ABG PO2/FiO2 Ratio ABG HCO3 ABG O2 Saturation ABG O2 Content ABG Base Excess A-a Gradient Oxyhemoglobin Carboxyhemoglobin Methemoglobin Reduced Hemoglobin Total Hemoglobin O2 Delivery Device O2 Liters/Min Minute Volume Vent Rate Vent Mode FiO2 Tidal Volume PEEP Peak Inspir Pressure Pressure Support Sodium 150 H Potassium 3.6 Chloride 111 H Carbon Dioxide 25 Anion Gap 14 H BUN 55 H Creatinine 1.40 H Estim Creat Clear Calc 35 Estimated GFR 38 L Glucose 161 H POC Capillary Glucose Calcium 9.1 Phosphorus 4.1 Magnesium 2.7 H Total Bilirubin 0.6 AST 24 ALT 18 Alkaline Phosphatase 83 Total Protein 8.0 Albumin 4.0 Triglycerides Quality VTE Prophylaxis VTE prophylaxis: pharmacologic ordered
[2024-03-01] MEDS: hydrALAZINE HCL 25 MG TABLET PO ×4 (09:25→20:01)
[2024-03-01] MEDS: amLODIPine BESYLATE 10 MG TABLET PO (09:25)
[2024-03-01] MEDS: SITagliptin PHOSPHATE 100 MG TABLET PO (09:25)
[2024-03-01] MEDS: ASPIRIN 81 MG CHEWABLE TABLET PO (09:25)
[2024-03-01] MEDS: ENOXAPARIN 40 MG/0.4 ML SYRINGE SUB-Q (09:25)
[2024-03-01] MEDS: PANTOPRAZOLE SODIUM IV 40 MG VIAL IV PUSH ×2 (09:25→20:01)
[2024-03-01] MEDS: carvediloL 25 MG TABLET PO ×2 (09:25→20:01)
[2024-03-01] MEDS: EMPAGLIFLOZIN 10 MG TABLET PO (09:25)
[2024-03-01] MEDS: DEXTROSE 5% IN WATER 500 ML 100 ML IV CONT (09:27)
[2024-03-01] MEDS: INSULIN GLARGINE (*BKC) 100 UNITS/ML 15 UNITS SUB-Q (10:03)
[2024-03-01] MEDS: metroNIDAZOLE 500 MG/ISO 100ML 500 MG/100 ML BAG 100 MG IVPB ×3 (10:03→21:02)
--- NOTE | 2024-03-01 10:27 | PM.PNNEP ---
Progress Note: A&P Assessment and Plan (1) Acute kidney injury: Code(s): N17.9 - Acute kidney failure, unspecified Status: Acute Assessment and Plan: relatively stable if not better creatinine was around 1.1 - 1.4mg/dl in October 2022 however, prior to that, creatinine was normal suspect some mild CKD from hypertension and diabetes as well as vascular disease reasonable urine output in response to IV diuretics possible etiologies: CHF fluctuating hemodynamics/BP infection (pneumonia) diuresis hypoxia other(?) renal ultrasound noted follow trend of repeat labs and UOP (2) Acute respiratory failure: Code(s): J96.00 - Acute respiratory failure, unspecified whether with hypoxia or hypercapnia Status: Acute Assessment and Plan: resolving -- extubated impending respiratory failure on evening of 02/24 with shortness of breath, hypoxia and central cyanosis intubated and placed on mechanical ventilation on 02/24 thought to be secondary to pulmonary edema follow respiratory status (3) Acute pulmonary edema: Code(s): J81.0 - Acute pulmonary edema Status: Acute Assessment and Plan: suspect multifactorial etiology: hypertensive urgency CHF valvular heart disease pulmonary HTN other? diuresis as tolerated repeat Echo results noted (4) Pneumonia: Qualifiers: Pneumonia type: aspiration pneumonia Aspiration pneumonia type: due to gastric secretions Laterality: unspecified laterality Code(s): J18.9 - Pneumonia, unspecified organism Status: Acute Assessment and Plan: possible componnt of aspiration noted to have nausea and vomiting along with dry heaves prior to decline in respiratory status follow culture data on antibiotics (5) Acute exacerbation of CHF (congestive heart failure): Qualifiers: Heart failure type: unspecified Qualified Code(s): I50.9 - Heart failure, unspecified Code(s): I50.9 - Heart failure, unspecified Status: Acute Assessment and Plan: suspect cause if not contributing factor with regard to pulmonary edema other factors include HTN urgency and hypoxia Echo as noted BP control diuresis as tolerated (6) Hypertensive urgency: Code(s): I16.0 - Hypertensive urgency Status: Acute Assessment and Plan: as noted on admission BP under better control now required initiation of cardene gtt due to rising BP wean as tolerated follow trend of hemodynamics (7) History of diabetes mellitus: Code(s): Z86.39 - Personal history of other endocrine, nutritional and metabolic disease Status: Acute Assessment and Plan: 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 Subjective Date/time seen: 03/01/24 10:27 Interval history: Follow-up for acute kidney injury/acute renal failure on chronic kidney disease. Successfully extubated yesterday afternoon with relative stability in breathing/respiratory status; elevated blood pressures overnight requiring initiation of cardene gtt; no apparent distress currently and denies any other acute issues or complaints at the time of my visit. Exam Narrative: General: female (who appears older than stated age) in NAD Heart: normal S1 and S2; no rub Lungs: coarse breath sounds; decreased at bases Abdomen: soft, nontender, nondistended, decreased bowel sounds Extremities: no cyanosis or clubbing; trace edema Skin: warm and intact Objective Data Vital Signs Vital Signs: Vital Signs Temp Pulse Resp BP Pulse Ox O2 Del Method O2 Flow Rate 03/01/24 10:20 88 142/79 H 03/01/24 10:00 77 14 142/79 H 100 03/01/24 10:00 77 03/01/24 08:00 100 Nasal Cannula 1 03/01/24 08:00 98.2 F 88 17 175/87 H 100 03/01/24 08:00 88 03/01/24 08:06 87 175/87 H 03/01/24 08:05 87 175/87 H 03/01/24 09:25 98 03/01/24 07:50 81 186/85 H 03/01/24 08:11 90 22 H 03/01/24 08:01 87 20 03/01/24 08:01 95 Nasal Cannula 1 03/01/24 02:00 83 14 96 BiPAP 03/01/24 06:18 82 165/85 H 03/01/24 04:54 82 227/99 H 03/01/24 06:00 86 15 165/85 H 100 03/01/24 04:00 97.5 F L 97 15 230/100 H 100 03/01/24 02:00 102 H 18 200/93 H 100 03/01/24 00:00 98.2 F 80 12 194/84 H 97 02/29/24 22:00 85 18 194/85 H 100 02/29/24 20:00 98.3 F 77 15 189/88 H 98 03/01/24 06:00 86 03/01/24 04:00 97 03/01/24 02:00 102 H 03/01/24 00:00 70 02/29/24 22:00 85 02/29/24 20:00 77 03/01/24 01:52 104 H 23 H 03/01/24 01:47 101 H 26 H 03/01/24 00:00 83 14 97 Room Air 02/29/24 20:00 83 14 97 Room Air 02/29/24 23:00 83 14 97 BiPAP 02/29/24 21:24 97 Nasal Cannula 2 02/29/24 20:57 80 14 02/29/24 20:50 82 19 02/29/24 18:25 82 02/29/24 18:00 98.3 F 82 16 194/81 H 98 02/29/24 18:00 72 Intake/Output Intake/Output: Intake & Output 02/27/24 02/28/24 02/29/24 03/01/24 23:59 23:59 23:59 23:59 Intake Total 1776.5 2632.2 968.7 400.9 Output Total 1200 1800 1950 975 Balance 576.5 832.2 -981.3 -574.1 Meds/Results Medications: Active Medications Generic Name Dose Route Start Last Admin Trade Name Freq PRN Reason Stop Dose Admin Acetaminophen 650 mg 02/25/24 10:29 Acetaminophen 325 Mg Tablet PO Q6H PRN Mild Pain (1-3) or Fever Albuterol/Ipratropium 3 ml 03/01/24 08:10 Ipratropium 0.5 Mg/Albuterol Sulfate 2.5 Mg Ampul.Neb 3 Ml INHALATION Q6HRT PRN Wheezing or SOB Amlodipine Besylate 10 mg 02/28/24 09:00 03/01/24 09:25 Amlodipine Besylate 10 Mg Tablet PO 10 mg DAILY JAQUI Administration Aspirin 81 mg 02/24/24 09:00 03/01/24 09:25 Aspirin 81 Mg Chewable Tablet PO 81 mg DAILY JAQUI Administration Carvedilol 25 mg 02/28/24 21:00 03/01/24 09:25 Carvedilol 25 Mg Tablet PO 25 mg Q12HR JAQUI Administration Dextrose 12.5 gm 02/26/24 04:22 Dextrose 50% 25 Gm/50 Ml Syringe IV PUSH PRN PRN Hypoglycemia Protocol Empagliflozin 10 mg 02/27/24 09:00 03/01/24 09:25 Empagliflozin 10 Mg Tablet PO 10 mg DAILY JAQUI Administration Enoxaparin Sodium 40 mg 02/27/24 09:00 03/01/24 09:25 Enoxaparin 40 Mg/0.4 Ml Syringe SUB-Q 40 mg DAILY JAQUI Administration Glucagon 1 mg 02/26/24 04:22 Glucagon For Inj 1 Mg Vial IM PRN PRN Hypoglycemia Protocol Glucose 15 gm 02/26/24 04:22 Glucose Oral Gel 15 Gm Of Glucse In 37.5 Gm Tube PO PRN PRN Hypoglycemia Protocol Hydralazine HCl 25 mg 02/28/24 12:00 03/01/24 16:48 Hydralazine Hcl 25 Mg Tablet PO 25 mg WMHS JAQUI Administration Hydralazine HCl 20 mg 03/01/24 08:04 03/01/24 17:37 Hydralazine Hcl 20 Mg/Ml Vial IV PUSH 20 mg Q4H PRN Administration Blood Pressure - High Ceftriaxone Sodium 2 gm in 100 mls @ 200 mls/hr 02/25/24 21:00 02/29/24 23:55 Rocephin 2 Gm/Ns 100 Ml IVPB 03/03/24 20:59 200 mls/hr Q24H JAQUI Administration Azithromycin 500 mg in 250 mls @ 250 mls/hr 02/25/24 22:00 02/29/24 21:59 Zithromax IVPB 03/01/24 21:59 250 mls/hr Q24H JAQUI Administration Dextrose 1,000 mls @ 100 mls/hr 02/26/24 04:22 Dextrose 5% 1,000 Ml IVPB PRN PRN Hypoglycemia Protocol Metronidazole 500 mg in 100 mls @ 100 mls/hr 02/26/24 08:00 03/01/24 14:09 Flagyl 500 Mg/Iso Soln 100 Ml IVPB 03/02/24 07:59 100 mls/hr Q8HR JAQUI Administration Nicardipine/Sodium Chloride 20 mg in 200 mls @ 0 mls/hr 03/01/24 03:45 03/01/24 11:07 Cardene 20 Mg/200 Ml Ns IV CONT 0 mg/hr .Q0M JAQUI 0 mls/hr Titration Protocol 0 MG/HR Insulin Aspart 4 - 8 units 03/01/24 11:30 03/01/24 16:48 Insulin Aspart (*Bkc) 100 Units/Ml SUB-Q Not Given ACHS [facility] Protocol Insulin Glargine 15 units 02/27/24 09:00 03/01/24 10:03 Insulin Glargine (*Bkc) 100 Units/Ml SUB-Q 15 units DAILY JAQUI Administration Multi-Ingred Cream/Lotion/Oil/Oint 1 applic 02/26/24 09:00 03/01/24 09:28 Mineral Oil/White Petrolatum Ointment EACH EYE Not Given Q12HR [facility] Ondansetron HCl 4 mg 02/25/24 20:59 Ondansetron Inj 4 Mg/2 Ml Vial IV PUSH Q6H PRN Nausea And Vomiting Pantoprazole Sodium 40 mg 02/26/24 09:00 03/01/24 09:25 Pantoprazole Sodium Iv 40 Mg Vial IV PUSH 40 mg Q12HR JAQUI Administration Sitagliptin Phosphate 100 mg 02/24/24 09:00 03/01/24 09:25 Sitagliptin Phosphate 100 Mg Tablet PO 100 mg DAILY JAQUI Administration Radiology Results: ITS Impressions Head CT 02/23/24 23:50 IMPRESSION: 1. 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 2. Stable extensive nonspecific cerebral white matter disease, which likely represents chronic small vessel ischemic disease. Abdomen/Pelvis CT 02/23/24 23:52 IMPRESSION: 1. No etiology for the patient's symptoms. Abdomen X-Ray 02/25/24 21:52 IMPRESSION: 1. Nasogastric tube in stomach. 2. Mild pulmonary edema. Renal Ultrasound 02/28/24 10:53 IMPRESSION: 1. A couple nonobstructing left renal stones. No hydronephrosis in either kidney. Venous Doppler Study 02/29/24 12:29 IMPRESSION: 1: No lower extremity deep venous thrombosis. Chest X-Ray 03/01/24 06:08 Impression: Focal opacity left lung base, which could reflect focal pneumonia or possibly atelectatic change. Continued follow-up advised. Labs Labs: Laboratory Tests 03/01/24 04:36 03/01/24 04:36 Calcium 9.1 Phosphorus 4.1 Magnesium 2.7 H Total Bilirubin 0.6 AST 24 ALT 18 Alkaline Phosphatase 83 Total Protein 8.0 Albumin 4.0
--- NOTE | 2024-03-01 11:10 | PCFNICU ---
ICU Rounding Note: Pt current nutrition is Full Liquids. Nutrition recommendation: advance as tolerate to [facility]. Last recorded weight is 63.5 kg, up from 62.9 kg on admit Bowel Motility: +BM reported 02/28 Labs Reviewed:Mg 2.7, GFR 38, BUN 55, Cr 1.4,Glu 161, Na 150 Meds Noted: Coreg,Jardiance, Lantus, Rocephin. Skin: WNL Additional Notes: Patient extubated on 02/28. Diet order has been advanced as tolerated to full liquids for lunch. Recommend Diabetic Consistent Carb diet when advancing. Agree with diet orders. Following daily in ICU rounds. Monitoring intakes, weights, labs, supplement tolerance, plan of care Follow up in 5 days.
[2024-03-01 12:06] LABS: Glucose Point of Care 360 mg/dl (65-105)
[2024-03-01] MEDS: INSULIN ASPART (*BKC) 100 UNITS/ML SUB-Q (12:08)
--- NOTE | 2024-03-01 12:17 | P.PNIM_ITS ---
Progress Note: A&P Assessment and Plan (1) Respiratory failure: Qualifiers: Chronicity: acute Respiratory failure complication: hypoxia Qualified Code(s): J96.01 - Acute respiratory failure with hypoxia Code(s): J96.90 - Respiratory failure, unspecified, unspecified whether with hypoxia or hypercapnia Status: Acute Assessment and Plan: 02/24/2024: Patient initially presented with nausea, vomiting, hypertensive urgency -on the night of 02/25/2024, patient had significant dyspnea, hypoxia with O2 sats in the 50s to 70 with central cyanosis, she was in impending respiratory failure -02/25/2024: Intubated on the medical floor and transferred to ICU for further management 02/28 extubated after a successful weaning trial On nasal cannula. Will add incentive spirometry. (2) Pulmonary edema: Qualifiers: Chronicity: acute Qualified Code(s): J81.0 - Acute pulmonary edema Code(s): J81.1 - Chronic pulmonary edema Status: Acute Assessment and Plan: Pulmonary edema could be multifactorial likely related to hypertensive urgency, mitral regurg, CHF more pulmonary hypertension -patient on previous admissions was on hydralazine, losartan, amlodipine and clonidine. Continue scheduled hydralazine, Coreg and amlodipine. 02/27/2024: Echocardiogram Summary 1. Left ventricular chamber dimension is normal. 2. There is mildly increased left ventricular wall thickness. 3. Left ventricular systolic function is normal, estimated at 60-65%. 4. There is no aortic valve stenosis. 5. There is no aortic valve regurgitation. 6. There is no mitral valve stenosis. 7. There is no mitral valve regurgitation. 8. The left ventricular diastolic function is grade I diastolic dysfunctio (3) Pneumonia: Qualifiers: Pneumonia type: aspiration pneumonia Aspiration pneumonia type: due to gastric secretions Laterality: unspecified laterality Code(s): J18.9 - Pneumonia, unspecified organism Status: Acute Assessment and Plan: Patient did have nausea, vomiting prior to admission, he also has been having dry heaves when she was in the hospital, sudden acute onset respiratory failure, suspect aspiration versus pulmonary edema -continue ceftriaxone, azithromycin,Flagyl -discontinue methylprednisolone (4) Acute exacerbation of CHF (congestive heart failure): Qualifiers: Heart failure type: unspecified Qualified Code(s): I50.9 - Heart failure, unspecified Code(s): I50.9 - Heart failure, unspecified Status: Acute Assessment and Plan: Patient with hypertensive urgency, pulmonary edema, hypoxemia, requiring intubation -restarted home Jardiance -hold diuresis, manage hypertension -echocardiogram this admission as above Echocardiogram 11/10/2022: Summary 1. Complete two-dimensional, color flow and Doppler transthoracic echocardiogram is performed. 2. Left ventricular chamber dimension is normal. 3. Left ventricular systolic function is normal, estimated at 55-60%. 4. There is severely increased left ventricular wall thickness. 5. The left ventricular diastolic function is grade II diastolic dysfunction. 6. Left atrial chamber dimension is mildly enlarged. 7. There is moderate mitral valve regurgitation. 8. The mitral valve has thickened leaflets. 9. Mild pulmonary hypertension, estimated pulmonary arterial systolic pressure is 44 mmHg (5) Acute kidney injury: Code(s): N17.9 - Acute kidney failure, unspecified Status: Acute Assessment and Plan: Acute on chronic kidney disease, could be related congestive changes, hypertension, diabetes, chronic kidney disease -patient has been diuresing well -will hold diuresis his elevated BUN and creatinine -nephrology has been consulted -monitor urine output, renal function electrolytes 02/27: Renal ultrasound showed a couple of nonobstructing left renal stones, no hydronephrosis in either kidney Cr 1.4 which is baseline (6) History of diabetes mellitus: Code(s): Z86.39 - Personal history of other endocrine, nutritional and metabolic disease Status: Acute Assessment and Plan: Continue Accu-Cheks and sliding scale insulin, continue Lantus -hemoglobin A1c was 7.3 this admission (7) Hypertensive urgency: Code(s): I16.0 - Hypertensive urgency Status: Acute Assessment and Plan: Post ex patient blood pressure has been elevated and patient was started on nicardipine infusion. Resume Coreg, Norvasc and hydralazine this morning and try to wean off nicardipine infusion titrate Cardine infusion (8) Mitral regurgitation: Code(s): I34.0 - Nonrheumatic mitral (valve) insufficiency Status: Acute Assessment and Plan: History of moderate mitral valve regurgitation on echocardiogram done in October of 2002 Echocardiogram as above (9) Electrolyte abnormality: Code(s): E87.8 - Other disorders of electrolyte and fluid balance, not elsewhere classified Status: Acute Assessment and Plan: Will give 500 mL of D5 water for hypernatremia (10) History of CVA (cerebrovascular accident): Code(s): Z86.73 - Personal history of transient ischemic attack (TIA), and cerebral infarction without residual deficits Status: Acute Assessment and Plan: with residual right sided weakness contineu home meds and PT/OT Plan DVT prophylaxis: Lovenox Stress ulcer prophylaxis: Protonix Nutrition: Advance diet Code Status: Full code Critical Care Time Spent: 30 minutes Subjective Date/time seen: 03/01/24 12:17 Interval history: Patient extubated and comfortable at bedside Review of Systems Review of Systems: Review of systems difficult to obtain due to patient's expressive aphasia. All systems reviewed & are unremarkable except as noted in HPI and below (Subjective) ROS unobtainable: Yes unobtainable due to endotracheal tube and unobtainable due to medical condition Exam Narrative: General: Alert awake and in no distress HEENT:? Pupils equal and reactive, sclerae is clear, Neck:? Supple Respiratory:? Coarse breath sounds bilaterally, decreased at bases, no wheezing Cardiac:? S1-S2 normal, regular rate and rhythm systolic murmur present Abdomen:? Soft, nontender, nondistended, hypoactive bowel sounds Extremities:? Trace ankle and foot edema right > left, palpable pedal pulses Neuro:? AO x1. Rightsided weakness from prior stroke Skin:? Warm and dry Const: Other: Disheveled, appears older than stated age, poor hygiene, no acute distress HENMT: Other: Head is normocephalic atraumatic, mucous membranes are tacky, multiple missing teeth, Eyes: Other: pupils are equal and reactive, cataracts noted Neck: Other: No JVD, no lymphadenopathy Resp: Other: Decreased breath sounds bilaterally, no increased work of breathing Cardio: Other: Regular rate, regular rhythm, 2+ bilateral radial pedal pulses, no JVD GI: Other: Soft, nondistended, positive bowel sounds, tender in the suprapubic region : Other: Incontinent of urine, depends in place Skin: Other: No jaundice, no pallor Extrem: Other: Difficulty with coordination of the right upper and lower extremity, 3/5 cleaner laboratory equipment strength on the right, normal tone Psych: Other: Pleasant and cooperative, Objective Data Vital Signs Vital Signs: Vital Signs - 24 hr 02/29/24 12:18 02/29/24 13:47 02/29/24 13:55 Temperature Pulse Rate 65 63 62 Respiratory Rate 13 12 Blood Pressure Pulse Oximetry 99 Oxygen Delivery Mechanical Ventilation Oxygen Flow Rate Fraction of Inspired Oxygen 02/29/24 13:46 02/29/24 13:40 02/29/24 14:22 Temperature Pulse Rate 63 58 L Respiratory Rate 10 L Blood Pressure Pulse Oximetry 99 97 Oxygen Delivery Mechanical Ventilation Nasal Cannula Oxygen Flow Rate 2 Fraction of Inspired Oxygen 02/29/24 14:00 02/29/24 14:00 02/29/24 14:22 Temperature 98.1 F Pulse Rate 63 61 Respiratory Rate 10 L Blood Pressure 162/73 H Pulse Oximetry 98 98 Oxygen Delivery Nasal Cannula Oxygen Flow Rate 2 Fraction of Inspired Oxygen 02/29/24 16:05 02/29/24 16:00 02/29/24 16:00 Temperature Pulse Rate 72 68 Respiratory Rate 18 Blood Pressure 168/71 H Pulse Oximetry 96 98 Oxygen Delivery Autopap Oxygen Flow Rate Fraction of Inspired Oxygen 02/29/24 15:53 02/29/24 18:00 02/29/24 18:00 Temperature 98.3 F Pulse Rate 72 82 Respiratory Rate 18 16 Blood Pressure 194/81 H Pulse Oximetry 96 98 Oxygen Delivery BiPAP Oxygen Flow Rate Fraction of Inspired Oxygen 02/29/24 18:25 02/29/24 20:50 02/29/24 20:57 Temperature Pulse Rate 82 82 80 Respiratory Rate 19 14 Blood Pressure Pulse Oximetry Oxygen Delivery Oxygen Flow Rate Fraction of Inspired Oxygen 02/29/24 21:24 02/29/24 23:00 02/29/24 20:00 Temperature Pulse Rate 83 83 Respiratory Rate 14 14 Blood Pressure Pulse Oximetry 97 97 97 Oxygen Delivery Nasal Cannula BiPAP Room Air Oxygen Flow Rate 2 Fraction of Inspired Oxygen 03/01/24 00:00 03/01/24 01:47 03/01/24 01:52 Temperature Pulse Rate 83 101 H 104 H Respiratory Rate 14 26 H 23 H Blood Pressure Pulse Oximetry 97 Oxygen Delivery Room Air Oxygen Flow Rate Fraction of Inspired Oxygen 02/29/24 20:00 02/29/24 22:00 03/01/24 00:00 Temperature Pulse Rate 77 85 70 Respiratory Rate Blood Pressure Pulse Oximetry Oxygen Delivery Oxygen Flow Rate Fraction of Inspired Oxygen 03/01/24 02:00 03/01/24 04:00 03/01/24 06:00 Temperature Pulse Rate 102 H 97 86 Respiratory Rate Blood Pressure Pulse Oximetry Oxygen Delivery Oxygen Flow Rate Fraction of Inspired Oxygen 02/29/24 20:00 02/29/24 22:00 03/01/24 00:00 Temperature 98.3 F 98.2 F Pulse Rate 77 85 80 Respiratory Rate 15 18 12 Blood Pressure 189/88 H 194/85 H 194/84 H Pulse Oximetry 98 100 97 Oxygen Delivery Oxygen Flow Rate Fraction of Inspired Oxygen 03/01/24 02:00 03/01/24 04:00 03/01/24 06:00 Temperature 97.5 F L Pulse Rate 102 H 97 86 Respiratory Rate 18 15 15 Blood Pressure 200/93 H 230/100 H 165/85 H Pulse Oximetry 100 100 100 Oxygen Delivery Oxygen Flow Rate Fraction of Inspired Oxygen 03/01/24 04:54 03/01/24 06:18 03/01/24 02:00 Temperature Pulse Rate 82 82 83 Respiratory Rate 14 Blood Pressure 227/99 H 165/85 H Pulse Oximetry 96 Oxygen Delivery BiPAP Oxygen Flow Rate Fraction of Inspired Oxygen 03/01/24 08:01 03/01/24 08:01 03/01/24 08:11 Temperature Pulse Rate 87 90 Respiratory Rate 20 22 H Blood Pressure Pulse Oximetry 95 Oxygen Delivery Nasal Cannula Oxygen Flow Rate 1 Fraction of Inspired Oxygen 03/01/24 07:50 03/01/24 09:25 03/01/24 08:05 Temperature Pulse Rate 81 98 87 Respiratory Rate Blood Pressure 186/85 H 175/87 H Pulse Oximetry Oxygen Delivery Oxygen Flow Rate Fraction of Inspired Oxygen 03/01/24 08:06 03/01/24 08:00 03/01/24 08:00 Temperature 98.2 F Pulse Rate 87 88 88 Respiratory Rate 17 Blood Pressure 175/87 H 175/87 H Pulse Oximetry 100 Oxygen Delivery Oxygen Flow Rate Fraction of Inspired Oxygen 03/01/24 08:00 03/01/24 10:00 03/01/24 10:00 Temperature Pulse Rate 77 77 Respiratory Rate 14 Blood Pressure 142/79 H Pulse Oximetry 100 100 Oxygen Delivery Nasal Cannula Oxygen Flow Rate 1 Fraction of Inspired Oxygen 03/01/24 10:30 03/01/24 11:07 Temperature Pulse Rate 88 69 Respiratory Rate Blood Pressure 142/79 H 129/65 Pulse Oximetry Oxygen Delivery Oxygen Flow Rate Fraction of Inspired Oxygen Intake/Output Intake/Output: Intake & Output 09/08/2002/28/24 02/29/24 03/01/24 23:59 23:59 23:59 23:59 Intake Total 1776.5 2632.2 968.7 300.9 Output Total 1200 1800 1950 975 Balance 576.5 832.2 -981.3 -674.1 Meds/Results Medications: Active Medications Generic Name Dose Route Start Last Admin Trade Name Freq PRN Reason Stop Dose Admin Acetaminophen 650 mg 02/25/24 10:29 Acetaminophen 325 Mg Tablet PO Q6H PRN Mild Pain (1-3) or Fever Albuterol/Ipratropium 3 ml 03/01/24 08:10 Ipratropium 0.5 Mg/Albuterol Sulfate 2.5 Mg Ampul.Neb 3 Ml INHALATION Q6HRT PRN Wheezing or SOB Amlodipine Besylate 10 mg 02/28/24 09:00 03/01/24 09:25 Amlodipine Besylate 10 Mg Tablet PO 10 mg DAILY JAQUI Administration Aspirin 81 mg 02/24/24 09:00 03/01/24 09:25 Aspirin 81 Mg Chewable Tablet PO 81 mg DAILY JAQUI Administration Carvedilol 25 mg 02/28/24 21:00 03/01/24 09:25 Carvedilol 25 Mg Tablet PO 25 mg Q12HR JAQUI Administration Dextrose 12.5 gm 02/26/24 04:22 Dextrose 50% 25 Gm/50 Ml Syringe IV PUSH PRN PRN Hypoglycemia Protocol Empagliflozin 10 mg 02/27/24 09:00 03/01/24 09:25 Empagliflozin 10 Mg Tablet PO 10 mg DAILY JAQUI Administration Enoxaparin Sodium 40 mg 02/27/24 09:00 03/01/24 09:25 Enoxaparin 40 Mg/0.4 Ml Syringe SUB-Q 40 mg DAILY JAQUI Administration Glucagon 1 mg 02/26/24 04:22 Glucagon For Inj 1 Mg Vial IM PRN PRN Hypoglycemia Protocol Glucose 15 gm 02/26/24 04:22 Glucose Oral Gel 15 Gm Of Glucse In 37.5 Gm Tube PO PRN PRN Hypoglycemia Protocol Hydralazine HCl 25 mg 02/28/24 12:00 03/01/24 12:09 Hydralazine Hcl 25 Mg Tablet PO 25 mg WMHS JAQUI Administration Hydralazine HCl 20 mg 03/01/24 08:04 Hydralazine Hcl 20 Mg/Ml Vial IV PUSH Q4H PRN Blood Pressure - High Ceftriaxone Sodium 2 gm in 100 mls @ 200 mls/hr 02/25/24 21:00 02/29/24 23:55 Rocephin 2 Gm/Ns 100 Ml IVPB 03/03/24 20:59 200 mls/hr Q24H JAQUI Administration Azithromycin 500 mg in 250 mls @ 250 mls/hr 02/25/24 22:00 02/29/24 21:59 Zithromax IVPB 03/01/24 21:59 250 mls/hr Q24H JAQUI Administration Dextrose 1,000 mls @ 100 mls/hr 02/26/24 04:22 Dextrose 5% 1,000 Ml IVPB PRN PRN Hypoglycemia Protocol Metronidazole 500 mg in 100 mls @ 100 mls/hr 02/26/24 08:00 03/01/24 10:03 Flagyl 500 Mg/Iso Soln 100 Ml IVPB 03/02/24 07:59 100 mls/hr Q8HR JAQUI Administration Nicardipine/Sodium Chloride 20 mg in 200 mls @ 0 mls/hr 03/01/24 03:45 03/01/24 11:07 Cardene 20 Mg/200 Ml Ns IV CONT 0 mg/hr .Q0M JAQUI 0 mls/hr Titration Protocol 0 MG/HR Dextrose 500 mls @ 100 mls/hr 03/01/24 08:05 03/01/24 09:27 Dextrose 5% In Water IV CONT 03/01/24 13:04 100 mls/hr .Q5H JAQUI Administration Insulin Aspart 4 - 8 units 03/01/24 11:30 03/01/24 12:08 Insulin Aspart (*Bkc) 100 Units/Ml SUB-Q 8 units ACHS JAQUI Administration Protocol Insulin Glargine 15 units 02/27/24 09:00 03/01/24 10:03 Insulin Glargine (*Bkc) 100 Units/Ml SUB-Q 15 units DAILY JAQUI Administration Multi-Ingred Cream/Lotion/Oil/Oint 1 applic 02/26/24 09:00 03/01/24 09:28 Mineral Oil/White Petrolatum Ointment EACH EYE Not Given Q12HR JAQUI Ondansetron HCl 4 mg 02/25/24 20:59 Ondansetron Inj 4 Mg/2 Ml Vial IV PUSH Q6H PRN Nausea And Vomiting Pantoprazole Sodium 40 mg 02/26/24 09:00 03/01/24 09:25 Pantoprazole Sodium Iv 40 Mg Vial IV PUSH 40 mg Q12HR JAQUI Administration Sitagliptin Phosphate 100 mg 02/24/24 09:00 03/01/24 09:25 Sitagliptin Phosphate 100 Mg Tablet PO 100 mg DAILY JAQUI Administration Radiology Results: ITS Impressions Head CT 02/23/24 23:50 IMPRESSION: 1. 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 2. Stable extensive nonspecific cerebral white matter disease, which likely represents chronic small vessel ischemic disease. Abdomen/Pelvis CT 02/23/24 23:52 IMPRESSION: 1. No etiology for the patient's symptoms. Abdomen X-Ray 02/25/24 21:52 IMPRESSION: 1. Nasogastric tube in stomach. 2. Mild pulmonary edema. Renal Ultrasound 02/28/24 10:53 IMPRESSION: 1. A couple nonobstructing left renal stones. No hydronephrosis in either kidney. Venous Doppler Study 02/29/24 12:29 IMPRESSION: 1: No lower extremity deep venous thrombosis. Chest X-Ray 03/01/24 06:08 Impression: Focal opacity left lung base, which could reflect focal pneumonia or possibly atelectatic change. Continued follow-up advised. Labs Labs: Laboratory Results - last 24 hr 02/29/24 02/29/24 02/29/24 12:37 13:46 16:58 WBC RBC Hgb Hct MCV MCH MCHC RDW Plt Count MPV Immature Gran % (Auto) Neut % (Auto) Lymph % (Auto) [place] % (Auto) Eos % (Auto) Baso % (Auto) Lymph # (Auto) [place] # (Auto) Eos # (Auto) Baso # (Auto) Abs Immat Gran (auto) Absolute Neuts (auto) Absolute Nucleated RBC Nucleated RBC % Puncture Site Right brachial ABG pH 7.436 ABG pCO2 42.7 ABG pO2 96.2 ABG PO2/FiO2 Ratio 3.21 ABG HCO3 28.1 H ABG O2 Saturation 97.5 ABG O2 Content 17.6 ABG Base Excess 3.5 A-a Gradient 67.5 Oxyhemoglobin 96.6 Carboxyhemoglobin Methemoglobin Reduced Hemoglobin Total Hemoglobin 12.9 O2 Delivery Device Ventilator O2 Liters/Min Not Reportable Minute Volume Not Reportable Vent Rate Not Reportable Vent Mode Spontaneous FiO2 30 Tidal Volume Not Reportable PEEP 5 Peak Inspir Pressure Not Reportable Pressure Support 5 Sodium Potassium Chloride Carbon Dioxide Anion Gap BUN Creatinine Estim Creat Clear Calc Estimated GFR Glucose POC Capillary Glucose 241 H 159 H Calcium Phosphorus Magnesium Total Bilirubin AST ALT Alkaline Phosphatase Total Protein Albumin Triglycerides 02/29/24 03/01/24 03/01/24 21:17 01:05 04:10 WBC RBC Hgb Hct MCV MCH MCHC RDW Plt Count MPV Immature Gran % (Auto) Neut % (Auto) Lymph % (Auto) [place] % (Auto) Eos % (Auto) Baso % (Auto) Lymph # (Auto) [place] # (Auto) Eos # (Auto) Baso # (Auto) Abs Immat Gran (auto) Absolute Neuts (auto) Absolute Nucleated RBC Nucleated RBC % Puncture Site Left radial ABG pH 7.530 H* ABG pCO2 30.2 L ABG pO2 63.4 L ABG PO2/FiO2 Ratio 2.26 ABG HCO3 24.7 ABG O2 Saturation 94.6 L ABG O2 Content 18.8 ABG Base Excess 2.8 A-a Gradient 100.6 Oxyhemoglobin 92.7 Carboxyhemoglobin 0.8 Methemoglobin 0.1 Reduced Hemoglobin 6.4 H Total Hemoglobin 14.4 O2 Delivery Device Nasal cannula O2 Liters/Min 2.0 Minute Volume Vent Rate Vent Mode FiO2 28 Tidal Volume PEEP Peak Inspir Pressure Pressure Support Sodium Potassium Chloride Carbon Dioxide Anion Gap BUN Creatinine Estim Creat Clear Calc Estimated GFR Glucose POC Capillary Glucose 166 H Calcium Phosphorus Magnesium Total Bilirubin AST ALT Alkaline Phosphatase Total Protein Albumin Triglycerides 152 H 03/01/24 03/01/24 04:36 12:03 WBC 14.0 H RBC 4.96 Hgb 14.5 Hct 44.4 MCV 89.5 MCH 29.2 MCHC 32.7 RDW 14.2 Plt Count 253 MPV 12.5 H Immature Gran % (Auto) 2.3 H Neut % (Auto) 87.9 H Lymph % (Auto) 7.3 L Stafford % (Auto) 2.3 L Eos % (Auto) 0.0 Baso % (Auto) 0.2 Lymph # (Auto) 1.03 Stafford # (Auto) 0.3 Eos # (Auto) 0.0 Baso # (Auto) 0.0 Abs Immat Gran (auto) 0.32 H Absolute Neuts (auto) 12.3 H Absolute Nucleated RBC 0.000 Nucleated RBC % 0.0 Puncture Site ABG pH ABG pCO2 ABG pO2 ABG PO2/FiO2 Ratio ABG HCO3 ABG O2 Saturation ABG O2 Content ABG Base Excess A-a Gradient Oxyhemoglobin Carboxyhemoglobin Methemoglobin Reduced Hemoglobin Total Hemoglobin O2 Delivery Device O2 Liters/Min Minute Volume Vent Rate Vent Mode FiO2 Tidal Volume PEEP Peak Inspir Pressure Pressure Support Sodium 150 H Potassium 3.6 Chloride 111 H Carbon Dioxide 25 Anion Gap 14 H BUN 55 H Creatinine 1.40 H Estim Creat Clear Calc 35 Estimated GFR 38 L Glucose 161 H POC Capillary Glucose 360 H Calcium 9.1 Phosphorus 4.1 Magnesium 2.7 H Total Bilirubin 0.6 AST 24 ALT 18 Alkaline Phosphatase 83 Total Protein 8.0 Albumin 4.0 Triglycerides Quality VTE Prophylaxis VTE prophylaxis: pharmacologic ordered
--- NOTE | 2024-03-01 14:56 | PCPTNOTE ---
attempted Pt eval at 13:00, bed rest orders lifted by RN at that time, per RN, pt had finally just gotten to rest after not resting for a long time and to come back at a later time, [email or web address]
[2024-03-01 16:51] LABS: Glucose Point of Care 91 mg/dl (65-105)
[2024-03-01] MEDS: hydrALAZINE HCL 20 MG/ML VIAL IV PUSH (17:37)
[2024-03-01] MEDS: MINERAL OIL/WHITE PETROLATUM OINTMENT 1 APPLIC EACH EYE (20:01)
[2024-03-01] MEDS: cefTRIAXone 2 GM/NS 100 ML 2 GM/100 ML BAG IVPB (20:01)
[2024-03-01 20:11] LABS: Glucose Point of Care 110 mg/dl (65-105)
[2024-03-02] VITALS (15 sets, daily range): BP systolic 116–178; BP diastolic 63–110; PULSE 60–77; RESP 12–22; TEMP 36.2–37.3; O2SAT 95–100
[2024-03-02] MEDS: hydrALAZINE HCL 20 MG/ML VIAL IV PUSH (01:10)
[2024-03-02 04:45] LABS: Basophils Percent Auto 0.1 % (0.2-1.2); Eosinophils Absolute Auto 0.1 K/mm3 (0-0.3); Eosinophils Percent Auto 0.4 % (0-4.4); Hematocrit 40.8 % (37.0-47.0); Hemoglobin 13.3 g/dL (12.0-15.0); Immature Granulocyte Percent A 1.7 % (0-0.5); Lymphocytes Percent Auto 28.8 % (18.3-44.2); Mean Corpuscular HGB Conc 32.6 g/dl (32-36); Mean Corpuscular Hemoglobin 28.8 pg (26-34); Mean Corpuscular Volume 88.3 fl (80-100); Mean Platelet Volume 11.9 fl (7.4-10.4); Monocytes Absolute Auto 0.8 K/mm3 (0.1-0.6); Monocytes Percent Auto 6.5 % (2.6-8.5); Neutrophils Absolute Auto 7.4 K/mm3 (1.3-6.7); Neutrophils Percent Auto 62.5 % (45.5-73.1); Platelet Count Result 236 k/mm3 (150-375); Red Blood Count 4.62 M/mm3 (4.2-5.4); Red Cell Distribution Width 13.6 % (11.5-14.5); White Blood Count 11.8 K/mm3 (4.5-10.0)
[2024-03-02 04:58] LABS: Alanine Aminotransferase 17 U/L (6-35); Albumin Level 3.7 g/dL (3.5-5.1); Alkaline Phosphatase 67 U/L (38-126); Anion Gap 9 mmol/L (4-12); Aspartate Amino Transferase 26 U/L (14-36); Bilirubin,Total 0.6 mg/dL (0.2-1.3); Blood Urea Nitrogen 36 mg/dL (7-17); Calcium 8.5 mg/dL (8.4-10.2); Carbon Dioxide 26 mmol/L (22-30); Chloride 102 mmol/L (98-107); Estimated CRCL calculation 38 ml/min; Estimated Glomerular Filt Rate 42; Glucose 81 mg/dL (65-110); Magnesium 2.3 mg/dL (1.6-2.3); Potassium 3.5 mmol/L (3.4-5.0); Sodium 137 mmol/L (137-145)
[2024-03-02] MEDS: metroNIDAZOLE 500 MG/ISO 100ML 500 MG/100 ML BAG 100 MG IVPB (06:53)
[2024-03-02 07:24] LABS: Glucose Point of Care 77 mg/dl (65-105)
[2024-03-02] MEDS: LOSARTAN POTASSIUM 50 MG TABLET PO (08:04)
[2024-03-02] MEDS: EMPAGLIFLOZIN 10 MG TABLET PO (08:04)
[2024-03-02] MEDS: carvediloL 25 MG TABLET PO (08:04)
[2024-03-02] MEDS: SITagliptin PHOSPHATE 100 MG TABLET PO (08:04)
[2024-03-02] MEDS: ENOXAPARIN 40 MG/0.4 ML SYRINGE SUB-Q (08:04)
[2024-03-02] MEDS: hydrALAZINE HCL 25 MG TABLET PO ×3 (08:04→17:05)
[2024-03-02] MEDS: amLODIPine BESYLATE 10 MG TABLET PO (08:04)
[2024-03-02] MEDS: ASPIRIN 81 MG CHEWABLE TABLET PO (08:04)
[2024-03-02] MEDS: INSULIN GLARGINE (*BKC) 100 UNITS/ML 15 UNITS SUB-Q (08:05)
[2024-03-02] MEDS: PANTOPRAZOLE SODIUM IV 40 MG VIAL IV PUSH ×2 (08:05→21:07)
--- NOTE | 2024-03-02 09:30 | WPDINTPN ---
Progress Note: A&P Assessment and Plan (1) Respiratory failure: Qualifiers: Chronicity: acute Respiratory failure complication: hypoxia Qualified Code(s): J96.01 - Acute respiratory failure with hypoxia Code(s): J96.90 - Respiratory failure, unspecified, unspecified whether with hypoxia or hypercapnia Status: Acute Assessment and Plan: 02/24/2024: Patient initially presented with nausea, vomiting, hypertensive urgency -on the night of 02/25/2024, patient had significant dyspnea, hypoxia with O2 sats in the 50s to 70 with central cyanosis, she was in impending respiratory failure -02/25/2024: Intubated on the medical floor and transferred to ICU for further management -02/28: extubated after a successful weaning trial -currently on room air with adequate O2 sat -currently on nasal cannula -encourage incentive spirometry (2) Hypertensive urgency: Code(s): I16.0 - Hypertensive urgency Status: Acute Assessment and Plan: After extubation patient's blood pressures have been elevated and was restarted on on nicardipine infusion. on 02/28 -currently has been off nicardipine infusion since 11:00 a.m. on 03/01 -continue Coreg, Norvasc and hydralazine -will also restart Clonidine 0.2 mg q.12 hours -patient also on losartan 100 mg q.day at home, was started 50 mg p.o. q.day as a kidney functions are improving -have counseled patient on being compliant with her blood pressure medications, as she did state that she sometimes does not take her medications at home (3) Pulmonary edema: Qualifiers: Chronicity: acute Qualified Code(s): J81.0 - Acute pulmonary edema Code(s): J81.1 - Chronic pulmonary edema Status: Acute Assessment and Plan: Pulmonary edema could be multifactorial likely related to hypertensive urgency, mitral regurg, CHF more pulmonary hypertension -continue medications as above 02/27/2024: Echocardiogram Summary 1. Left ventricular chamber dimension is normal. 2. There is mildly increased left ventricular wall thickness. 3. Left ventricular systolic function is normal, estimated at 60-65%. 4. There is no aortic valve stenosis. 5. There is no aortic valve regurgitation. 6. There is no mitral valve stenosis. 7. There is no mitral valve regurgitation. 8. The left ventricular diastolic function is grade I diastolic dysfunctio (4) Pneumonia: Qualifiers: Pneumonia type: aspiration pneumonia Aspiration pneumonia type: due to gastric secretions Laterality: unspecified laterality Code(s): J18.9 - Pneumonia, unspecified organism Status: Acute Assessment and Plan: Patient did have nausea, vomiting prior to admission, he also has been having dry heaves when she was in the hospital, sudden acute onset respiratory failure, suspect aspiration versus pulmonary edema -continue ceftriaxone for total of 7 days ending on 03/03/2024 -status post azithromycin and Flagyl (5 day course) (5) Acute exacerbation of CHF (congestive heart failure): Qualifiers: Heart failure type: unspecified Qualified Code(s): I50.9 - Heart failure, unspecified Code(s): I50.9 - Heart failure, unspecified Status: Acute Assessment and Plan: Patient with hypertensive urgency, pulmonary edema, hypoxemia, requiring intubation -restarted home Jardiance -continue to hold diuresis, patient is diuresing well on her own -echocardiogram this admission as above Echocardiogram 11/10/2022: Summary 1. Complete two-dimensional, color flow and Doppler transthoracic echocardiogram is performed. 2. Left ventricular chamber dimension is normal. 3. Left ventricular systolic function is normal, estimated at 55-60%. 4. There is severely increased left ventricular wall thickness. 5. The left ventricular diastolic function is grade II diastolic dysfunction. 6. Left atrial chamber dimension is mildly enlarged. 7. There is moderate mitral valve regurgitation. 8. The mitral valve has thickened leaflets. 9. Mild pulmonary hypertension, estimated pulmonary arterial systolic pressure is 44 mmHg (6) Acute kidney injury: Code(s): N17.9 - Acute kidney failure, unspecified Status: Acute Assessment and Plan: Acute on chronic kidney disease, could be related congestive changes, hypertension, diabetes, chronic kidney disease -patient has been diuresing well -will hold diuresis his elevated BUN and creatinine -nephrology has been consulted -monitor urine output, renal function electrolytes 02/27: Renal ultrasound showed a couple of nonobstructing left renal stones, no hydronephrosis in either kidney (7) History of diabetes mellitus: Code(s): Z86.39 - Personal history of other endocrine, nutritional and metabolic disease Status: Acute Assessment and Plan: Continue Accu-Cheks and sliding scale insulin, continue Lantus -hemoglobin A1c was 7.3 this admission (8) Mitral regurgitation: Code(s): I34.0 - Nonrheumatic mitral (valve) insufficiency Status: Acute Assessment and Plan: History of moderate mitral valve regurgitation on echocardiogram done in October of 2002 Echocardiogram as above (9) Electrolyte abnormality: Code(s): E87.8 - Other disorders of electrolyte and fluid balance, not elsewhere classified Status: Acute Assessment and Plan: Hypernatremia has resolved Plan DVT prophylaxis: Lovenox Stress ulcer prophylaxis: Protonix Nutrition: Heart healthy diet Code Status: Full code Critical Care Time Spent: 32 minutes If blood pressures remain stable will transfer patient out of the ICU Due to a high probability of clinically significant, life threatening deterioration, the patient required my highest level of preparedness to intervene emergently and I personally spent this critical care time directly and personally managing the patient. This critical care time included obtaining a history; examining the patient; pulse oximetry; ordering and review of studies; arranging urgent treatment with development of a management plan; evaluation of patient's response to treatment; frequent reassessment; and discussions with other providers. It was exclusive of separately billable procedures and treating other patients and teaching time. Please see Assessment and Plan section and the rest of the note for further information on patient assessment and treatment This dictation may have been done utilizing a voice recognition system. Attempts have been made to correct errors. However, there may be uncorrected grammatical, spelling, and recognitions errors present. Subjective Date/time seen: 03/02/24 09:30 Interval history: Reason for consult: Acute respiratory failure, possible aspiration, pulmonary edema, pneumonia 02/24: Intubated 02/28: Extubated 03/02/2024: Patient seen and examined the ICU, remains extubated, currently on room air with adequate O2 sats. Blood pressures have been stable, patient required 1 dose of p.r.n. hydralazine. Is off nicardipine infusion 02/28/2024: Patient seen and examined the ICU, remains intubated on CMV mode of ventilation, peep of 5, 30% FiO2, sedated with fentanyl Versed infusion. Patient has had elevated blood pressures requiring p.r.n. hydralazine. Urine output has been good. Afebrile. Tolerating tube feeds, positive bowel movement. Patient opens her eyes but does not follow simple commands since 11:00 a.m. on 03/01. Urine output has been good with negative fluid balance with creatinine improving Review of Systems Review of Systems: All systems reviewed & are unremarkable except as noted in HPI and below (Subjective) Exam Narrative: General: Alert awake and in no distress HEENT:? Pupils equal and reactive, sclerae is clear, Neck:? Supple Respiratory:? Clear to auscultation bilaterally, decreased at bases, no wheezing, adequate air entry Cardiac:? S1-S2 normal, regular rate and rhythm systolic murmur present Abdomen:? Soft, nontender, nondistended, normoactive bowel sounds Extremities:? Trace ankle and foot edema right > left, palpable pedal pulses Neuro:? Patient is awake, alert, oriented to place, knows her date of . Moves all 4 extremities. Follows simple commands Skin:? Warm and dry Objective Data Vital Signs Vital Signs: Vital Signs - 24 hr 03/01/24 10:00 03/01/24 10:00 03/01/24 10:30 Temperature Pulse Rate 77 77 88 Respiratory Rate 14 Blood Pressure 142/79 H 142/79 H Pulse Oximetry 100 Oxygen Delivery Oxygen Flow Rate Fraction of Inspired Oxygen 03/01/24 11:07 03/01/24 12:00 03/01/24 12:00 Temperature Pulse Rate 69 72 Respiratory Rate Blood Pressure 129/65 Pulse Oximetry 100 Oxygen Delivery Nasal Cannula Oxygen Flow Rate 1 Fraction of Inspired Oxygen 03/01/24 12:00 03/01/24 14:00 03/01/24 14:00 Temperature Pulse Rate 72 70 70 Respiratory Rate 14 20 Blood Pressure 153/94 H 163/85 H Pulse Oximetry 100 100 Oxygen Delivery Oxygen Flow Rate Fraction of Inspired Oxygen 03/01/24 16:00 03/01/24 16:00 03/01/24 16:00 Temperature Pulse Rate 75 75 Respiratory Rate 14 Blood Pressure 166/75 H Pulse Oximetry 100 100 Oxygen Delivery Nasal Cannula Oxygen Flow Rate 1 Fraction of Inspired Oxygen 03/01/24 18:00 03/01/24 18:00 03/01/24 20:00 Temperature Pulse Rate 76 76 82 Respiratory Rate 16 16 Blood Pressure 155/90 H Pulse Oximetry 100 100 Oxygen Delivery Nasal Cannula Oxygen Flow Rate 1 Fraction of Inspired Oxygen 28 03/01/24 20:00 03/01/24 20:01 03/01/24 20:00 Temperature 98.7 F Pulse Rate 74 82 76 Respiratory Rate 22 H Blood Pressure 173/104 H Pulse Oximetry 99 Oxygen Delivery Oxygen Flow Rate Fraction of Inspired Oxygen 03/01/24 22:00 03/01/24 22:00 03/02/24 00:00 Temperature Pulse Rate 65 65 63 Respiratory Rate 18 Blood Pressure 139/94 H Pulse Oximetry 96 Oxygen Delivery Oxygen Flow Rate Fraction of Inspired Oxygen 03/02/24 00:00 03/02/24 00:00 03/01/24 21:05 Temperature 98 F Pulse Rate 62 Respiratory Rate 18 Blood Pressure 160/100 H Pulse Oximetry 98 98 96 Oxygen Delivery Nasal Cannula Nasal Cannula Oxygen Flow Rate 2 1 Fraction of Inspired Oxygen 03/02/24 01:00 03/02/24 02:00 03/02/24 02:00 Temperature 97.8 F Pulse Rate 66 66 Respiratory Rate 14 Blood Pressure 178/90 H 160/93 H Pulse Oximetry 100 Oxygen Delivery Oxygen Flow Rate Fraction of Inspired Oxygen 03/02/24 04:00 03/02/24 04:00 03/02/24 04:00 Temperature 97.6 F Pulse Rate 61 66 61 Respiratory Rate 14 18 Blood Pressure 146/69 H Pulse Oximetry 100 95 Oxygen Delivery Nasal Cannula Oxygen Flow Rate 2 Fraction of Inspired Oxygen 28 03/02/24 06:00 03/02/24 06:00 03/02/24 08:04 Temperature 97.3 F L Pulse Rate 63 61 77 Respiratory Rate 14 Blood Pressure 154/65 H Pulse Oximetry 100 Oxygen Delivery Oxygen Flow Rate Fraction of Inspired Oxygen 03/02/24 08:00 03/02/24 08:00 03/02/24 08:00 Temperature 97.7 F Pulse Rate 74 77 Respiratory Rate 21 H Blood Pressure 177/110 H Pulse Oximetry 99 Oxygen Delivery Room Air Oxygen Flow Rate Fraction of Inspired Oxygen 03/02/24 08:45 Temperature Pulse Rate Respiratory Rate Blood Pressure Pulse Oximetry 99 Oxygen Delivery Room Air Oxygen Flow Rate Fraction of Inspired Oxygen 21 Intake/Output Intake/Output: Intake & Output 02/28/24 02/29/24 03/01/24 03/02/24 23:59 23:59 23:59 23:59 Intake Total 2632.2 968.7 940.9 Output Total 1800 1950 2675 850 Balance 832.2 -981.3 -1734.1 -850 Meds/Results Medications: Active Medications Generic Name Dose Route Start Last Admin Trade Name Freq PRN Reason Stop Dose Admin Acetaminophen 650 mg 02/25/24 10:29 Acetaminophen 325 Mg Tablet PO Q6H PRN Mild Pain (1-3) or Fever Albuterol/Ipratropium 3 ml 03/01/24 08:10 Ipratropium 0.5 Mg/Albuterol Sulfate 2.5 Mg Ampul.Neb 3 Ml INHALATION Q6HRT PRN Wheezing or SOB Amlodipine Besylate 10 mg 02/28/24 09:00 03/02/24 08:04 Amlodipine Besylate 10 Mg Tablet PO 10 mg DAILY JAQUI Administration Aspirin 81 mg 02/24/24 09:00 03/02/24 08:04 Aspirin 81 Mg Chewable Tablet PO 81 mg DAILY JAQUI Administration Carvedilol 25 mg 02/28/24 21:00 03/02/24 08:04 Carvedilol 25 Mg Tablet PO 25 mg Q12HR JAQUI Administration Clonidine HCl 0.2 mg 03/02/24 09:00 Clonidine Hcl 0.2 Mg Tablet PO Q12HR JAQUI Dextrose 12.5 gm 02/26/24 04:22 Dextrose 50% 25 Gm/50 Ml Syringe IV PUSH PRN PRN Hypoglycemia Protocol Empagliflozin 10 mg 02/27/24 09:00 03/02/24 08:04 Empagliflozin 10 Mg Tablet PO 10 mg DAILY JAQUI Administration Enoxaparin Sodium 40 mg 02/27/24 09:00 03/02/24 08:04 Enoxaparin 40 Mg/0.4 Ml Syringe SUB-Q 40 mg DAILY JAQUI Administration Glucagon 1 mg 02/26/24 04:22 Glucagon For Inj 1 Mg Vial IM PRN PRN Hypoglycemia Protocol Glucose 15 gm 02/26/24 04:22 Glucose Oral Gel 15 Gm Of Glucse In 37.5 Gm Tube PO PRN PRN Hypoglycemia Protocol Hydralazine HCl 25 mg 02/28/24 12:00 03/02/24 08:04 Hydralazine Hcl 25 Mg Tablet PO 25 mg WMHS JAQUI Administration Hydralazine HCl 20 mg 03/01/24 08:04 03/02/24 01:10 Hydralazine Hcl 20 Mg/Ml Vial IV PUSH 20 mg Q4H PRN Administration Blood Pressure - High Ceftriaxone Sodium 2 gm in 100 mls @ 200 mls/hr 02/25/24 21:00 03/01/24 20:01 Rocephin 2 Gm/Ns 100 Ml IVPB 03/03/24 20:59 200 mls/hr Q24H JAQUI Administration Dextrose 1,000 mls @ 100 mls/hr 02/26/24 04:22 Dextrose 5% 1,000 Ml IVPB PRN PRN Hypoglycemia Protocol Nicardipine/Sodium Chloride 20 mg in 200 mls @ 0 mls/hr 03/01/24 03:45 03/01/24 11:07 Cardene 20 Mg/200 Ml Ns IV CONT 0 mg/hr .Q0M JAQUI 0 mls/hr Titration Protocol 0 MG/HR Insulin Aspart 4 - 8 units 03/01/24 11:30 03/02/24 07:29 Insulin Aspart (*Bkc) 100 Units/Ml SUB-Q Not Given ACHS JAQUI Protocol Insulin Glargine 15 units 02/27/24 09:00 03/02/24 08:05 Insulin Glargine (*Bkc) 100 Units/Ml SUB-Q 15 units DAILY JAQUI Administration Losartan Potassium 50 mg 03/02/24 09:00 03/02/24 08:04 Losartan Potassium 50 Mg Tablet PO 50 mg DAILY JAQUI Administration Multi-Ingred Cream/Lotion/Oil/Oint 1 applic 02/26/24 09:00 03/02/24 08:17 Mineral Oil/White Petrolatum Ointment EACH EYE Not Given Q12HR JAQUI Ondansetron HCl 4 mg 02/25/24 20:59 Ondansetron Inj 4 Mg/2 Ml Vial IV PUSH Q6H PRN Nausea And Vomiting Pantoprazole Sodium 40 mg 02/26/24 09:00 03/02/24 08:05 Pantoprazole Sodium Iv 40 Mg Vial IV PUSH 40 mg Q12HR JAQUI Administration Sitagliptin Phosphate 100 mg 02/24/24 09:00 03/02/24 08:04 Sitagliptin Phosphate 100 Mg Tablet PO 100 mg DAILY JAQUI Administration Radiology Results: ITS Impressions Head CT 02/23/24 23:50 IMPRESSION: 1. 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 2. Stable extensive nonspecific cerebral white matter disease, which likely represents chronic small vessel ischemic disease. Abdomen/Pelvis CT 02/23/24 23:52 IMPRESSION: 1. No etiology for the patient's symptoms. Abdomen X-Ray 02/25/24 21:52 IMPRESSION: 1. Nasogastric tube in stomach. 2. Mild pulmonary edema. Renal Ultrasound 02/28/24 10:53 IMPRESSION: 1. A couple nonobstructing left renal stones. No hydronephrosis in either kidney. Venous Doppler Study 02/29/24 12:29 IMPRESSION: 1: No lower extremity deep venous thrombosis. Chest X-Ray 03/01/24 06:08 Impression: Focal opacity left lung base, which could reflect focal pneumonia or possibly atelectatic change. Continued follow-up advised. Labs Labs: Laboratory Results - last 24 hr 02/25/24 03/01/24 03/01/24 20:31 12:03 16:46 WBC RBC Hgb Hct MCV MCH MCHC RDW Plt Count MPV Immature Gran % (Auto) Neut % (Auto) Lymph % (Auto) [place] % (Auto) Eos % (Auto) Baso % (Auto) Lymph # (Auto) [place] # (Auto) Eos # (Auto) Baso # (Auto) Abs Immat Gran (auto) Absolute Neuts (auto) Absolute Nucleated RBC Nucleated RBC % Puncture Site Cancelled ABG pH Cancelled ABG pCO2 Cancelled ABG pO2 Cancelled ABG PO2/FiO2 Ratio Cancelled ABG HCO3 Cancelled ABG O2 Saturation Cancelled ABG O2 Content Cancelled ABG Base Excess Cancelled A-a Gradient Cancelled Oxyhemoglobin Cancelled Carboxyhemoglobin Cancelled Methemoglobin Cancelled Reduced Hemoglobin Cancelled Total Hemoglobin Cancelled O2 Delivery Device Cancelled O2 Liters/Min Cancelled FiO2 Cancelled Sodium Potassium Chloride Carbon Dioxide Anion Gap BUN Creatinine Estim Creat Clear Calc Estimated GFR Glucose POC Capillary Glucose 360 H 91 Calcium Magnesium Total Bilirubin AST ALT Alkaline Phosphatase Total Protein Albumin 03/01/24 03/02/24 03/02/24 20:05 04:35 07:21 WBC 11.8 H RBC 4.62 Hgb 13.3 Hct 40.8 MCV 88.3 MCH 28.8 MCHC 32.6 RDW 13.6 Plt Count 236 MPV 11.9 H Immature Gran % (Auto) 1.7 H Neut % (Auto) 62.5 Lymph % (Auto) 28.8 Webster % (Auto) 6.5 Eos % (Auto) 0.4 Baso % (Auto) 0.1 L Lymph # (Auto) 3.40 H Webster # (Auto) 0.8 H Eos # (Auto) 0.1 Baso # (Auto) 0.0 Abs Immat Gran (auto) 0.20 H Absolute Neuts (auto) 7.4 H Absolute Nucleated RBC 0.000 Nucleated RBC % 0.0 Puncture Site ABG pH ABG pCO2 ABG pO2 ABG PO2/FiO2 Ratio ABG HCO3 ABG O2 Saturation ABG O2 Content ABG Base Excess A-a Gradient Oxyhemoglobin Carboxyhemoglobin Methemoglobin Reduced Hemoglobin Total Hemoglobin O2 Delivery Device O2 Liters/Min FiO2 Sodium 137 Potassium 3.5 Chloride 102 Carbon Dioxide 26 Anion Gap 9 BUN 36 H D Creatinine 1.30 H Estim Creat Clear Calc 38 Estimated GFR 42 L Glucose 81 POC Capillary Glucose 110 H 77 Calcium 8.5 Magnesium 2.3 Total Bilirubin 0.6 AST 26 ALT 17 Alkaline Phosphatase 67 Total Protein 7.0 Albumin 3.7 Quality VTE Prophylaxis VTE prophylaxis: pharmacologic ordered
[2024-03-02] MEDS: cloNIDine HCL 0.2 MG TABLET PO ×2 (09:54→21:08)
--- NOTE | 2024-03-02 10:15 | P.PNNP_ITS ---
Progress Note: A&P Assessment and Plan (1) Acute kidney injury: Code(s): N17.9 - Acute kidney failure, unspecified Status: Acute Assessment and Plan: * relatively stable if not better * creatinine was around 1.1 - 1.4mg/dl in October 2022 * however, prior to that, creatinine was normal * suspect some mild CKD from hypertension and diabetes as well as vascular disease * reasonable urine output in response to IV diuretics * possible etiologies: * CHF * fluctuating hemodynamics/BP * infection (pneumonia) * diuresis * hypoxia * other(?) * renal ultrasound noted * follow trend of repeat labs and UOP (2) Acute respiratory failure: Code(s): J96.00 - Acute respiratory failure, unspecified whether with hypoxia or hypercapnia Status: Acute Assessment and Plan: * resolving -- extubated * impending respiratory failure on evening of 02/24 with shortness of breath, hypoxia and central cyanosis * intubated and placed on mechanical ventilation on 02/24 * thought to be secondary to pulmonary edema * follow respiratory status (3) Acute pulmonary edema: Code(s): J81.0 - Acute pulmonary edema Status: Acute Assessment and Plan: * clinically better (if not resolved) * suspect multifactorial etiology: * hypertensive urgency * CHF * valvular heart disease * pulmonary HTN * other? * diuresis as tolerated * repeat Echo results noted (4) Pneumonia: Qualifiers: Pneumonia type: aspiration pneumonia Aspiration pneumonia type: due to gastric secretions Laterality: unspecified laterality Code(s): J18.9 - Pneumonia, unspecified organism Status: Acute Assessment and Plan: * possible componnt of aspiration * noted to have nausea and vomiting along with dry heaves prior to decline in respiratory status * follow culture data * on antibiotics (5) Acute exacerbation of CHF (congestive heart failure): Qualifiers: Heart failure type: unspecified Qualified Code(s): I50.9 - Heart failure, unspecified Code(s): I50.9 - Heart failure, unspecified Status: Acute Assessment and Plan: * suspect cause if not contributing factor with regard to pulmonary edema * other factors include HTN urgency and hypoxia * Echo as noted * BP control * diuresis as tolerated (6) Hypertensive urgency: Code(s): I16.0 - Hypertensive urgency Status: Acute Assessment and Plan: * as noted on admission * BP under better control now * required initiation of cardene gtt due to rising BP * weaned off * follow trend of hemodynamics (7) History of diabetes mellitus: Code(s): Z86.39 - Personal history of other endocrine, nutritional and metabolic disease Status: Acute Assessment and Plan: * follow accu-cheks * 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 Subjective Date/time seen: 03/02/24 10:15 Interval history: Follow-up for acute kidney injury/acute renal failure on chronic kidney disease. Respiratory status remains stable if not improved since extubation -- currently on room air with good oxygen saturations; weaned off nicardipine gtt with relative stability in hemodynamics/blood pressure; no apparent distress noted at the time of my visit. Exam Narrative: General: female (who appears older than stated age) in NAD Heart: normal S1 and S2; no rub Lungs: coarse breath sounds; decreased at bases Abdomen: soft, nontender, nondistended, decreased bowel sounds Extremities: no cyanosis or clubbing; trace edema Skin: no rash Objective Data Vital Signs Vital Signs: Vital Signs Temp Pulse Resp BP Pulse Ox O2 Del Method O2 Flow Rate 03/02/24 10:00 99.1 F 65 12 116/77 96 03/02/24 09:29 Room Air 03/02/24 08:45 99 Room Air 03/02/24 08:00 Room Air 03/02/24 08:00 77 03/02/24 08:00 97.7 F 74 21 H 177/110 H 99 03/02/24 08:04 77 03/02/24 06:00 97.3 F L 61 14 154/65 H 100 03/02/24 06:00 63 03/02/24 04:00 97.6 F 61 18 146/69 H 95 03/02/24 04:00 66 14 100 Nasal Cannula 2 03/02/24 04:00 61 03/02/24 02:00 97.8 F 66 14 160/93 H 100 03/02/24 02:00 66 03/02/24 01:00 178/90 H 03/01/24 21:05 96 Nasal Cannula 1 03/02/24 00:00 98 F 62 18 160/100 H 98 03/02/24 00:00 98 Nasal Cannula 2 03/02/24 00:00 63 03/01/24 22:00 65 18 139/94 H 96 03/01/24 22:00 65 03/01/24 20:00 76 03/01/24 20:01 82 03/01/24 20:00 98.7 F 74 22 H 173/104 H 99 03/01/24 20:00 82 16 100 Nasal Cannula 1 03/01/24 18:00 76 16 155/90 H 100 03/01/24 18:00 76 Intake/Output Intake/Output: Intake & Output 02/28/24 02/29/24 03/01/24 03/02/24 23:59 23:59 23:59 23:59 Intake Total 2632.2 968.7 940.9 610 Output Total 1800 1950 2675 850 Balance 832.2 -981.3 -1734.1 -240 Meds/Results Medications: Active Medications Generic Name Dose Route Start Last Admin Trade Name Freq PRN Reason Stop Dose Admin Acetaminophen 650 mg 02/25/24 10:29 Acetaminophen 325 Mg Tablet PO Q6H PRN Mild Pain (1-3) or Fever Albuterol/Ipratropium 3 ml 03/01/24 08:10 Ipratropium 0.5 Mg/Albuterol Sulfate 2.5 Mg Ampul.Neb 3 Ml INHALATION Q6HRT PRN Wheezing or SOB Amlodipine Besylate 10 mg 02/28/24 09:00 03/02/24 08:04 Amlodipine Besylate 10 Mg Tablet PO 10 mg DAILY JAQUI Administration Aspirin 81 mg 02/24/24 09:00 03/02/24 08:04 Aspirin 81 Mg Chewable Tablet PO 81 mg DAILY JAQUI Administration Carvedilol 12.5 mg 03/02/24 21:00 Carvedilol 12.5 Mg Tablet PO Q12HR JAQUI Clonidine HCl 0.2 mg 03/02/24 09:00 03/02/24 09:54 Clonidine Hcl 0.2 Mg Tablet PO 0.2 mg Q12HR JAQUI Administration Dextrose 12.5 gm 02/26/24 04:22 Dextrose 50% 25 Gm/50 Ml Syringe IV PUSH PRN PRN Hypoglycemia Protocol Empagliflozin 10 mg 02/27/24 09:00 03/02/24 08:04 Empagliflozin 10 Mg Tablet PO 10 mg DAILY JAQUI Administration Enoxaparin Sodium 40 mg 02/27/24 09:00 03/02/24 08:04 Enoxaparin 40 Mg/0.4 Ml Syringe SUB-Q 40 mg DAILY JAQUI Administration Glucagon 1 mg 02/26/24 04:22 Glucagon For Inj 1 Mg Vial IM PRN PRN Hypoglycemia Protocol Glucose 15 gm 02/26/24 04:22 Glucose Oral Gel 15 Gm Of Glucse In 37.5 Gm Tube PO PRN PRN Hypoglycemia Protocol Hydralazine HCl 20 mg 03/01/24 08:04 03/02/24 01:10 Hydralazine Hcl 20 Mg/Ml Vial IV PUSH 20 mg Q4H PRN Administration Blood Pressure - High Hydralazine HCl 25 mg 03/02/24 13:00 03/02/24 17:05 Hydralazine Hcl 25 Mg Tablet PO 25 mg TID JAQUI Administration Ceftriaxone Sodium 2 gm in 100 mls @ 200 mls/hr 02/25/24 21:00 03/01/24 20:01 Rocephin 2 Gm/Ns 100 Ml IVPB 03/03/24 20:59 200 mls/hr Q24H JAQUI Administration Dextrose 1,000 mls @ 100 mls/hr 02/26/24 04:22 Dextrose 5% 1,000 Ml IVPB PRN PRN Hypoglycemia Protocol Nicardipine/Sodium Chloride 20 mg in 200 mls @ 0 mls/hr 03/01/24 03:45 03/01/24 11:07 Cardene 20 Mg/200 Ml Ns IV CONT 0 mg/hr .Q0M JAQUI 0 mls/hr Titration Protocol 0 MG/HR Insulin Aspart 4 - 8 units 03/01/24 11:30 03/02/24 16:51 Insulin Aspart (*Bkc) 100 Units/Ml SUB-Q Not Given ACHS [facility] Protocol Insulin Glargine 15 units 02/27/24 09:00 03/02/24 08:05 Insulin Glargine (*Bkc) 100 Units/Ml SUB-Q 15 units DAILY JAQUI Administration Losartan Potassium 50 mg 03/02/24 09:00 03/02/24 08:04 Losartan Potassium 50 Mg Tablet PO 50 mg DAILY JAQUI Administration Multi-Ingred Cream/Lotion/Oil/Oint 1 applic 02/26/24 09:00 03/02/24 08:17 Mineral Oil/White Petrolatum Ointment EACH EYE Not Given Q12HR JAQUI Ondansetron HCl 4 mg 02/25/24 20:59 Ondansetron Inj 4 Mg/2 Ml Vial IV PUSH Q6H PRN Nausea And Vomiting Pantoprazole Sodium 40 mg 02/26/24 09:00 03/02/24 08:05 Pantoprazole Sodium Iv 40 Mg Vial IV PUSH 40 mg Q12HR JAQUI Administration Sitagliptin Phosphate 100 mg 02/24/24 09:00 03/02/24 08:04 Sitagliptin Phosphate 100 Mg Tablet PO 100 mg DAILY JAQUI Administration Radiology Results: ITS Impressions Head CT 02/23/24 23:50 IMPRESSION: 1. 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 2. Stable extensive nonspecific cerebral white matter disease, which likely represents chronic small vessel ischemic disease. Abdomen/Pelvis CT 02/23/24 23:52 IMPRESSION: 1. No etiology for the patient's symptoms. Abdomen X-Ray 02/25/24 21:52 IMPRESSION: 1. Nasogastric tube in stomach. 2. Mild pulmonary edema. Renal Ultrasound 02/28/24 10:53 IMPRESSION: 1. A couple nonobstructing left renal stones. No hydronephrosis in either kidney. Venous Doppler Study 02/29/24 12:29 IMPRESSION: 1: No lower extremity deep venous thrombosis. Chest X-Ray 03/01/24 06:08 Impression: Focal opacity left lung base, which could reflect focal pneumonia or possibly atelectatic change. Continued follow-up advised. Labs Labs: Laboratory Tests 03/02/24 04:35 03/02/24 04:35 Calcium 8.5 Magnesium 2.3 Total Bilirubin 0.6 AST 26 ALT 17 Alkaline Phosphatase 67 Total Protein 7.0 Albumin 3.7 Microbiology 02/25/24 22:14 Blood Blood Culture - Final 02/25/24 22:14 Blood Blood Culture - Final
--- NOTE | 2024-03-02 11:16 | PCNFU ---
Nutrition Follow-Up Complete: Severe protein calorie malnutrition related to chronic loss of appetite, post CVA as evidenced by inadequate intake <75% needs >1 month; chronic muscle wasting and fat loss. Goal: Adequate PO intake at least 75% meals and supplements Patient is progressing towards goal. No new goal. Pt current nutrition is Heart Healthy/DBCC diet. Last recorded weight is 65.3 kg, up from 62.9 gm on admit. Bowel Motility: +BM reported 03/01 Labs Reviewed: Cr 1.3,GFR 42, BUN 36 Meds Noted:Lantus, NovoLog,Jardiance, Rocephin. Skin: WNL Additional Notes: Patient is tolerating heart healthy/DBCC diet. Eating 60-80% of meals. Agree with diet orders. Monitoring intakes, weights, labs, supplement tolerance, plan of care Follow up in 5 days
[2024-03-02 11:35] LABS: Glucose Point of Care 148 mg/dl (65-105)
[2024-03-02 16:26] LABS: Glucose Point of Care 75 mg/dl (65-105)
[2024-03-02] MEDS: carvediloL 12.5 MG TABLET PO (21:07)
[2024-03-02] MEDS: cefTRIAXone 2 GM/NS 100 ML 2 GM/100 ML BAG IVPB (21:09)
[2024-03-02 21:10] LABS: Glucose Point of Care 95 mg/dl (65-105)
[2024-03-03] VITALS (7 sets, daily range): BP systolic 150–161; BP diastolic 71–82; PULSE 55–67; RESP 12–20; TEMP 36.2–36.5; O2SAT 92–100
[2024-03-03 06:07] LABS: Hematocrit 39.2 % (37.0-47.0); Hemoglobin 12.9 g/dL (12.0-15.0); Mean Corpuscular HGB Conc 32.9 g/dl (32-36); Mean Corpuscular Hemoglobin 28.5 pg (26-34); Mean Corpuscular Volume 86.7 fl (80-100); Mean Platelet Volume 12.3 fl (7.4-10.4); Platelet Count Result 236 k/mm3 (150-375); Red Blood Count 4.52 M/mm3 (4.2-5.4); Red Cell Distribution Width 13.3 % (11.5-14.5); White Blood Count 9.1 K/mm3 (4.5-10.0)
[2024-03-03 06:15] LABS: Alanine Aminotransferase 15 U/L (6-35); Albumin Level 3.2 g/dL (3.5-5.1); Alkaline Phosphatase 54 U/L (38-126); Anion Gap 7 mmol/L (4-12); Aspartate Amino Transferase 24 U/L (14-36); Bilirubin,Total 0.4 mg/dL (0.2-1.3); Blood Urea Nitrogen 28 mg/dL (7-17); Calcium 7.9 mg/dL (8.4-10.2); Carbon Dioxide 27 mmol/L (22-30); Chloride 102 mmol/L (98-107); Estimated CRCL calculation 38 ml/min; Estimated Glomerular Filt Rate 42; Glucose 91 mg/dL (65-110); Magnesium 2.2 mg/dL (1.6-2.3); Potassium 3.3 mmol/L (3.4-5.0); Sodium 136 mmol/L (137-145)
[2024-03-03 08:10] LABS: Glucose Point of Care 83 mg/dl (65-105)
[2024-03-03] MEDS: carvediloL 12.5 MG TABLET PO (08:52)
[2024-03-03] MEDS: amLODIPine BESYLATE 10 MG TABLET PO (08:52)
[2024-03-03] MEDS: cloNIDine HCL 0.2 MG TABLET PO (08:53)
[2024-03-03] MEDS: SITagliptin PHOSPHATE 100 MG TABLET PO (08:53)
[2024-03-03] MEDS: ASPIRIN 81 MG CHEWABLE TABLET PO (08:53)
[2024-03-03] MEDS: hydrALAZINE HCL 25 MG TABLET PO ×3 (08:53→16:57)
[2024-03-03] MEDS: EMPAGLIFLOZIN 10 MG TABLET PO (08:53)
[2024-03-03] MEDS: LOSARTAN POTASSIUM 100 MG TABLET PO (08:53)
[2024-03-03] MEDS: ENOXAPARIN 40 MG/0.4 ML SYRINGE SUB-Q (08:57)
[2024-03-03] MEDS: PANTOPRAZOLE SODIUM IV 40 MG VIAL IV PUSH (08:57)
[2024-03-03] MEDS: INSULIN GLARGINE (*BKC) 100 UNITS/ML 15 UNITS SUB-Q (08:58)
--- NOTE | 2024-03-03 10:42 | PM.IMPN ---
Progress Note: A&P Assessment and Plan (1) Respiratory failure: Qualifiers: Chronicity: acute Respiratory failure complication: hypoxia Qualified Code(s): J96.01 - Acute respiratory failure with hypoxia Code(s): J96.90 - Respiratory failure, unspecified, unspecified whether with hypoxia or hypercapnia Status: Acute Assessment and Plan: 02/24/2024: Patient initially presented with nausea, vomiting, hypertensive urgency -on the night of 02/25/2024, patient had significant dyspnea, hypoxia with O2 sats in the 50s to 70 with central cyanosis, she was in impending respiratory failure -02/25/2024: Intubated on the medical floor and transferred to ICU for further management -02/28: extubated after a successful weaning trial -currently on room air with adequate O2 sat -currently on nasal cannula -encourage incentive spirometry (2) Hypertensive urgency: Code(s): I16.0 - Hypertensive urgency Status: Acute Assessment and Plan: After extubation patient's blood pressures have been elevated and was restarted on on nicardipine infusion. on 02/28 -currently has been off nicardipine infusion since 11:00 a.m. on 03/01 -continue Coreg, Norvasc and hydralazine -will also restart Clonidine 0.2 mg q.12 hours -patient also on losartan 100 mg q.day at home, was started 50 mg p.o. q.day as a kidney functions are improving -have counseled patient on being compliant with her blood pressure medications, as she did state that she sometimes does not take her medications at home (3) Pulmonary edema: Qualifiers: Chronicity: acute Qualified Code(s): J81.0 - Acute pulmonary edema Code(s): J81.1 - Chronic pulmonary edema Status: Acute Assessment and Plan: Pulmonary edema could be multifactorial likely related to hypertensive urgency, mitral regurg, CHF more pulmonary hypertension -continue medications as above 02/27/2024: Echocardiogram Summary 1. Left ventricular chamber dimension is normal. 2. There is mildly increased left ventricular wall thickness. 3. Left ventricular systolic function is normal, estimated at 60-65%. 4. There is no aortic valve stenosis. 5. There is no aortic valve regurgitation. 6. There is no mitral valve stenosis. 7. There is no mitral valve regurgitation. 8. The left ventricular diastolic function is grade I diastolic dysfunctio (4) Pneumonia: Qualifiers: Pneumonia type: aspiration pneumonia Aspiration pneumonia type: due to gastric secretions Laterality: unspecified laterality Code(s): J18.9 - Pneumonia, unspecified organism Status: Acute Assessment and Plan: Patient did have nausea, vomiting prior to admission, he also has been having dry heaves when she was in the hospital, sudden acute onset respiratory failure, suspect aspiration versus pulmonary edema -continue ceftriaxone for total of 7 days ending on 03/03/2024 -status post azithromycin and Flagyl (5 day course) (5) Acute exacerbation of CHF (congestive heart failure): Qualifiers: Heart failure type: unspecified Qualified Code(s): I50.9 - Heart failure, unspecified Code(s): I50.9 - Heart failure, unspecified Status: Acute Assessment and Plan: Patient with hypertensive urgency, pulmonary edema, hypoxemia, requiring intubation -restarted home Jardiance -on lasix 20mg daily -echocardiogram this admission as above Echocardiogram 11/10/2022: Summary 1. Complete two-dimensional, color flow and Doppler transthoracic echocardiogram is performed. 2. Left ventricular chamber dimension is normal. 3. Left ventricular systolic function is normal, estimated at 55-60%. 4. There is severely increased left ventricular wall thickness. 5. The left ventricular diastolic function is grade II diastolic dysfunction. 6. Left atrial chamber dimension is mildly enlarged. 7. There is moderate mitral valve regurgitation. 8. The mitral valve has thickened leaflets. 9. Mild pulmonary hypertension, estimated pulmonary arterial systolic pressure is 44 mmHg (6) Acute kidney injury: Code(s): N17.9 - Acute kidney failure, unspecified Status: Acute Assessment and Plan: Acute on chronic kidney disease, could be related congestive changes, hypertension, diabetes, chronic kidney disease -patient has been diuresing well -will hold diuresis his elevated BUN and creatinine -nephrology has been consulted -monitor urine output, renal function electrolytes 02/27: Renal ultrasound showed a couple of nonobstructing left renal stones, no hydronephrosis in either kidney Cr 1.3 which is her baseline, thus resolved (7) History of diabetes mellitus: Code(s): Z86.39 - Personal history of other endocrine, nutritional and metabolic disease Status: Acute Assessment and Plan: Continue Accu-Cheks and sliding scale insulin, continue Lantus -hemoglobin A1c was 7.3 this admission (8) Mitral regurgitation: Code(s): I34.0 - Nonrheumatic mitral (valve) insufficiency Status: Acute Assessment and Plan: History of moderate mitral valve regurgitation on echocardiogram done in October of 2002 Echocardiogram as above (9) Electrolyte abnormality: Code(s): E87.8 - Other disorders of electrolyte and fluid balance, not elsewhere classified Status: Acute Assessment and Plan: Hypernatremia has resolved Plan DVT prophylaxis: Lovenox Stress ulcer prophylaxis: Protonix Nutrition: Heart healthy diet Code Status: Full code awaiting SNF placement Subjective Date/time seen: 03/03/24 10:42 Interval history: Patient comfortable at bedside, no overnight events now awaiting placement to SNF Review of Systems Review of Systems: Review of systems difficult to obtain due to patient's expressive aphasia. All systems reviewed & are unremarkable except as noted in HPI and below (Subjective) ROS unobtainable: Yes unobtainable due to endotracheal tube and unobtainable due to medical condition Exam Narrative: General: Alert awake and in no distress HEENT:? Pupils equal and reactive, sclerae is clear, Neck:? Supple Respiratory:? Clear to auscultation bilaterally, decreased at bases, no wheezing, adequate air entry Cardiac:? S1-S2 normal, regular rate and rhythm systolic murmur present Abdomen:? Soft, nontender, nondistended, normoactive bowel sounds Extremities:? Trace ankle and foot edema right > left, palpable pedal pulses Neuro:? Patient is awake, alert, oriented to place, knows her date of . Moves all 4 extremities. Follows simple commands Skin:? Warm and dry Const: Other: Disheveled, appears older than stated age, poor hygiene, no acute distress HENMT: Other: Head is normocephalic atraumatic, mucous membranes are tacky, multiple missing teeth, Eyes: Other: pupils are equal and reactive, cataracts noted Neck: Other: No JVD, no lymphadenopathy Resp: Other: Decreased breath sounds bilaterally, no increased work of breathing Cardio: Other: Regular rate, regular rhythm, 2+ bilateral radial pedal pulses, no JVD GI: Other: Soft, nondistended, positive bowel sounds, tender in the suprapubic region : Other: Incontinent of urine, depends in place Skin: Other: No jaundice, no pallor Neuro: Other: Extrem: Other: Difficulty with coordination of the right upper and lower extremity, 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 on the 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, normal tone Psych: Other: Pleasant and cooperative, Objective Data Vital Signs Vital Signs: Vital Signs - 24 hr 03/02/24 12:00 03/02/24 12:00 03/02/24 15:16 Temperature 97.1 F L Pulse Rate 67 61 Respiratory Rate 16 Blood Pressure 157/63 H Pulse Oximetry 98 Oxygen Delivery Room Air 03/02/24 16:00 03/02/24 21:07 03/02/24 21:54 Temperature 98.3 F Pulse Rate 60 66 66 Respiratory Rate 22 H Blood Pressure 158/72 H Pulse Oximetry 95 Oxygen Delivery 03/02/24 20:00 03/03/24 00:00 03/03/24 04:00 Temperature Pulse Rate 64 56 L 57 L Respiratory Rate Blood Pressure Pulse Oximetry Oxygen Delivery 03/03/24 06:00 03/03/24 08:52 Temperature 97.7 F Pulse Rate 63 60 Respiratory Rate 20 Blood Pressure 161/71 H Pulse Oximetry 92 Oxygen Delivery Intake/Output Intake/Output: Intake & Output 02/29/24 03/01/24 03/02/24 03/03/24 23:59 23:59 23:59 23:59 Intake Total 968.7 1040.9 1254 250 Output Total 1950 9797 7841 700 [facility] -981.3 -1634.1 -921 -450 Meds/Results Medications: Active Medications Generic Name Dose Route Start Last Admin Trade Name Freq PRN Reason Stop Dose Admin Acetaminophen 650 mg 02/25/24 10:29 Acetaminophen 325 Mg Tablet PO Q6H PRN Mild Pain (1-3) or Fever Albuterol/Ipratropium 3 ml 03/01/24 08:10 Ipratropium 0.5 Mg/Albuterol Sulfate 2.5 Mg Ampul.Neb 3 Ml INHALATION Q6HRT PRN Wheezing or SOB Amlodipine Besylate 10 mg 02/28/24 09:00 03/03/24 08:52 Amlodipine Besylate 10 Mg Tablet PO 10 mg DAILY JAQUI Administration Aspirin 81 mg 02/24/24 09:00 03/03/24 08:53 Aspirin 81 Mg Chewable Tablet PO 81 mg DAILY JAQUI Administration Carvedilol 12.5 mg 03/02/24 21:00 03/03/24 08:52 Carvedilol 12.5 Mg Tablet PO 12.5 mg Q12HR JAQUI Administration Clonidine HCl 0.2 mg 03/02/24 09:00 03/03/24 08:53 Clonidine Hcl 0.2 Mg Tablet PO 0.2 mg Q12HR JAQUI Administration Dextrose 12.5 gm 02/26/24 04:22 Dextrose 50% 25 Gm/50 Ml Syringe IV PUSH PRN PRN Hypoglycemia Protocol Empagliflozin 10 mg 02/27/24 09:00 03/03/24 08:53 Empagliflozin 10 Mg Tablet PO 10 mg DAILY JAQUI Administration Enoxaparin Sodium 40 mg 02/27/24 09:00 03/03/24 08:57 Enoxaparin 40 Mg/0.4 Ml Syringe SUB-Q 40 mg DAILY JAQUI Administration Glucagon 1 mg 02/26/24 04:22 Glucagon For Inj 1 Mg Vial IM PRN PRN Hypoglycemia Protocol Glucose 15 gm 02/26/24 04:22 Glucose Oral Gel 15 Gm Of Glucse In 37.5 Gm Tube PO PRN PRN Hypoglycemia Protocol Hydralazine HCl 20 mg 03/01/24 08:04 03/02/24 01:10 Hydralazine Hcl 20 Mg/Ml Vial IV PUSH 20 mg Q4H PRN Administration Blood Pressure - High Hydralazine HCl 25 mg 03/02/24 13:00 03/03/24 08:53 Hydralazine Hcl 25 Mg Tablet PO 25 mg TID JAQUI Administration Ceftriaxone Sodium 2 gm in 100 mls @ 200 mls/hr 02/25/24 21:00 03/02/24 21:39 Rocephin 2 Gm/Ns 100 Ml IVPB 03/03/24 20:59 Infused Q24H JAQUI Infusion Dextrose 1,000 mls @ 100 mls/hr 02/26/24 04:22 Dextrose 5% 1,000 Ml IVPB PRN PRN Hypoglycemia Protocol Insulin Aspart 4 - 8 units 03/03/24 08:00 03/03/24 08:51 Insulin Aspart (*Bkc) 100 Units/Ml SUB-Q Not Given 0800,1200,1700,2100 [facility] Protocol Insulin Glargine 15 units 02/27/24 09:00 03/03/24 08:58 Insulin Glargine (*Bkc) 100 Units/Ml SUB-Q 15 units DAILY JAQUI Administration Losartan Potassium 100 mg 03/03/24 09:00 03/03/24 08:53 Losartan Potassium 100 Mg Tablet PO 100 mg DAILY JAQUI Administration Ondansetron HCl 4 mg 02/25/24 20:59 Ondansetron Inj 4 Mg/2 Ml Vial IV PUSH Q6H PRN Nausea And Vomiting Pantoprazole Sodium 40 mg 02/26/24 09:00 03/03/24 08:57 Pantoprazole Sodium Iv 40 Mg Vial IV PUSH 40 mg Q12HR JAQUI Administration Sitagliptin Phosphate 100 mg 02/24/24 09:00 03/03/24 08:53 Sitagliptin Phosphate 100 Mg Tablet PO 100 mg DAILY JAQUI Administration Radiology Results: ITS Impressions Head CT 02/23/24 23:50 IMPRESSION: 1. 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 2. Stable extensive nonspecific cerebral white matter disease, which likely represents chronic small vessel ischemic disease. Abdomen/Pelvis CT 02/23/24 23:52 IMPRESSION: 1. No etiology for the patient's symptoms. Abdomen X-Ray 02/25/24 21:52 IMPRESSION: 1. Nasogastric tube in stomach. 2. Mild pulmonary edema. Renal Ultrasound 02/28/24 10:53 IMPRESSION: 1. A couple nonobstructing left renal stones. No hydronephrosis in either kidney. Venous Doppler Study 02/29/24 12:29 IMPRESSION: 1: No lower extremity deep venous thrombosis. Chest X-Ray 03/01/24 06:08 Impression: Focal opacity left lung base, which could reflect focal pneumonia or possibly atelectatic change. Continued follow-up advised. Labs Labs: Laboratory Results - last 24 hr 03/02/24 03/02/24 03/02/24 11:29 16:23 20:55 WBC RBC Hgb Hct MCV MCH MCHC RDW Plt Count MPV Sodium Potassium Chloride Carbon Dioxide Anion Gap BUN Creatinine Estim Creat Clear Calc Estimated GFR Glucose POC Capillary Glucose 148 H 75 95 Calcium Magnesium Total Bilirubin AST ALT Alkaline Phosphatase Total Protein Albumin 03/03/24 03/03/24 05:43 08:04 WBC 9.1 RBC 4.52 Hgb 12.9 Hct 39.2 MCV 86.7 MCH 28.5 MCHC 32.9 RDW 13.3 Plt Count 236 MPV 12.3 H Sodium 136 L Potassium 3.3 L Chloride 102 Carbon Dioxide 27 Anion Gap 7 BUN 28 H Creatinine 1.30 H Estim Creat Clear Calc 38 Estimated GFR 42 L Glucose 91 POC Capillary Glucose 83 Calcium 7.9 L Magnesium 2.2 Total Bilirubin 0.4 AST 24 ALT 15 Alkaline Phosphatase 54 Total Protein 6.0 L Albumin 3.2 L Quality VTE Prophylaxis VTE prophylaxis: pharmacologic ordered
--- NOTE | 2024-03-03 11:16 | P.PNNP_ITS ---
Progress Note: A&P Assessment and Plan (1) Acute kidney injury: Code(s): N17.9 - Acute kidney failure, unspecified Status: Acute Assessment and Plan: * relatively stable if not better * creatinine was around 1.1 - 1.4mg/dl in October 2022 * however, prior to that, creatinine was normal * suspect some mild CKD from hypertension and diabetes as well as vascular disease * reasonable urine output in response to IV diuretics * possible etiologies: * CHF * fluctuating hemodynamics/BP * infection (pneumonia) * diuresis * hypoxia * other(?) * renal ultrasound noted * follow trend of repeat labs and UOP (2) Acute respiratory failure: Code(s): J96.00 - Acute respiratory failure, unspecified whether with hypoxia or hypercapnia Status: Acute Assessment and Plan: * resolving -- extubated * impending respiratory failure on evening of 02/24 with shortness of breath, hypoxia and central cyanosis * intubated and placed on mechanical ventilation on 02/24 * thought to be secondary to pulmonary edema * follow respiratory status (3) Acute pulmonary edema: Code(s): J81.0 - Acute pulmonary edema Status: Acute Assessment and Plan: * clinically better (if not resolved) * suspect multifactorial etiology: * hypertensive urgency * CHF * valvular heart disease * pulmonary HTN * other? * diuresis as tolerated * repeat Echo results noted (4) Pneumonia: Qualifiers: Pneumonia type: aspiration pneumonia Aspiration pneumonia type: due to gastric secretions Laterality: unspecified laterality Code(s): J18.9 - Pneumonia, unspecified organism Status: Acute Assessment and Plan: * possible componnt of aspiration * noted to have nausea and vomiting along with dry heaves prior to decline in respiratory status * follow culture data * on antibiotics (5) Acute exacerbation of CHF (congestive heart failure): Qualifiers: Heart failure type: unspecified Qualified Code(s): I50.9 - Heart failure, unspecified Code(s): I50.9 - Heart failure, unspecified Status: Acute Assessment and Plan: * suspect cause if not contributing factor with regard to pulmonary edema * other factors include HTN urgency and hypoxia * Echo as noted * BP control * diuresis as tolerated (6) Hypertensive urgency: Code(s): I16.0 - Hypertensive urgency Status: Acute Assessment and Plan: * as noted on admission * BP under better control now * required initiation of cardene gtt due to rising BP * weaned off * follow trend of hemodynamics (7) History of diabetes mellitus: Code(s): Z86.39 - Personal history of other endocrine, nutritional and metabolic disease Status: Acute Assessment and Plan: * follow accu-cheks * glycemic control per hospitalist Not much else to add -- will continue to follow from a distance. Subjective Date/time seen: 03/03/24 11:16 Interval history: Follow-up for acute kidney injury/acute renal failure on chronic kidney disease. Appears to be doing reasonably well at the time of my visit; hemodynamics and breathing/respiratory status appear to be doing well if not improving; no issues/events overnight or earlier this morning; renal function stable with good urine output noted as well. Exam Narrative: General: female (who appears older than stated age) in NAD Heart: normal S1 and S2; no rub Lungs: coarse breath sounds; decreased at bases Abdomen: soft, nontender, nondistended, decreased bowel sounds Extremities: no cyanosis or clubbing; no edema Skin: no nodules Objective Data Vital Signs Vital Signs: Vital Signs Temp Pulse Resp BP Pulse Ox O2 Del Method 03/03/24 11:00 62 03/03/24 08:00 67 03/03/24 08:00 Room Air 03/03/24 08:52 60 03/03/24 06:00 97.7 F 63 20 161/71 H 92 03/03/24 04:00 57 L 03/03/24 00:00 56 L 03/02/24 20:00 64 03/02/24 21:54 98.3 F 66 22 H 158/72 H 95 03/02/24 21:07 66 Intake/Output Intake/Output: Intake & Output 02/29/24 03/01/24 03/02/24 03/03/24 23:59 23:59 23:59 23:59 Intake Total 968.7 1040.9 1254 690 Output Total 1750 5850 2077 1922 [facility] -981.3 -1634.1 -921 -685 Meds/Results Medications: Active Medications Generic Name Dose Route Start Last Admin Trade Name Freq PRN Reason Stop Dose Admin Acetaminophen 650 mg 02/25/24 10:29 03/03/24 16:57 Acetaminophen 325 Mg Tablet PO 650 mg Q6H PRN Administration Mild Pain (1-3) or Fever Albuterol/Ipratropium 3 ml 03/01/24 08:10 Ipratropium 0.5 Mg/Albuterol Sulfate 2.5 Mg Ampul.Neb 3 Ml INHALATION Q6HRT PRN Wheezing or SOB Amlodipine Besylate 10 mg 02/28/24 09:00 03/03/24 08:52 Amlodipine Besylate 10 Mg Tablet PO 10 mg DAILY JAQUI Administration Aspirin 81 mg 02/24/24 09:00 03/03/24 08:53 Aspirin 81 Mg Chewable Tablet PO 81 mg DAILY JAQUI Administration Carvedilol 12.5 mg 03/02/24 21:00 03/03/24 08:52 Carvedilol 12.5 Mg Tablet PO 12.5 mg Q12HR JAQUI Administration Clonidine HCl 0.2 mg 03/02/24 09:00 03/03/24 08:53 Clonidine Hcl 0.2 Mg Tablet PO 0.2 mg Q12HR JAQUI Administration Dextrose 12.5 gm 02/26/24 04:22 Dextrose 50% 25 Gm/50 Ml Syringe IV PUSH PRN PRN Hypoglycemia Protocol Empagliflozin 10 mg 02/27/24 09:00 03/03/24 08:53 Empagliflozin 10 Mg Tablet PO 10 mg DAILY JAQUI Administration Enoxaparin Sodium 40 mg 02/27/24 09:00 03/03/24 08:57 Enoxaparin 40 Mg/0.4 Ml Syringe SUB-Q 40 mg DAILY JAQUI Administration Furosemide 20 mg 03/03/24 10:50 03/03/24 12:30 Furosemide 20 Mg Tablet PO 20 mg DAILY JAQUI Administration Glucagon 1 mg 02/26/24 04:22 Glucagon For Inj 1 Mg Vial IM PRN PRN Hypoglycemia Protocol Glucose 15 gm 02/26/24 04:22 Glucose Oral Gel 15 Gm Of Glucse In 37.5 Gm Tube PO PRN PRN Hypoglycemia Protocol Hydralazine HCl 20 mg 03/01/24 08:04 03/02/24 01:10 Hydralazine Hcl 20 Mg/Ml Vial IV PUSH 20 mg Q4H PRN Administration Blood Pressure - High Hydralazine HCl 25 mg 03/02/24 13:00 03/03/24 16:57 Hydralazine Hcl 25 Mg Tablet PO 25 mg TID JAQUI Administration Ceftriaxone Sodium 2 gm in 100 mls @ 200 mls/hr 02/25/24 21:00 03/02/24 21:39 Rocephin 2 Gm/Ns 100 Ml IVPB 03/03/24 20:59 Infused Q24H JAQUI Infusion Dextrose 1,000 mls @ 100 mls/hr 02/26/24 04:22 Dextrose 5% 1,000 Ml IVPB PRN PRN Hypoglycemia Protocol Insulin Aspart 4 - 8 units 03/03/24 08:00 03/03/24 17:01 Insulin Aspart (*Bkc) 100 Units/Ml SUB-Q Not Given 0800,1200,1700,2100 JAQUI Protocol Insulin Glargine 15 units 02/27/24 09:00 03/03/24 08:58 Insulin Glargine (*Bkc) 100 Units/Ml SUB-Q 15 units DAILY JAQUI Administration Losartan Potassium 100 mg 03/03/24 09:00 03/03/24 08:53 Losartan Potassium 100 Mg Tablet PO 100 mg DAILY JAQUI Administration Ondansetron HCl 4 mg 02/25/24 20:59 Ondansetron Inj 4 Mg/2 Ml Vial IV PUSH Q6H PRN Nausea And Vomiting Pantoprazole Sodium 40 mg 02/26/24 09:00 03/03/24 08:57 Pantoprazole Sodium Iv 40 Mg Vial IV PUSH 40 mg Q12HR JAQUI Administration Sitagliptin Phosphate 100 mg 02/24/24 09:00 03/03/24 08:53 Sitagliptin Phosphate 100 Mg Tablet PO 100 mg DAILY JAQUI Administration Radiology Results: ITS Impressions Head CT 02/23/24 23:50 IMPRESSION: 1. 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 2. Stable extensive nonspecific cerebral white matter disease, which likely represents chronic small vessel ischemic disease. Abdomen/Pelvis CT 02/23/24 23:52 IMPRESSION: 1. No etiology for the patient's symptoms. Abdomen X-Ray 02/25/24 21:52 IMPRESSION: 1. Nasogastric tube in stomach. 2. Mild pulmonary edema. Renal Ultrasound 02/28/24 10:53 IMPRESSION: 1. A couple nonobstructing left renal stones. No hydronephrosis in either kidney. Venous Doppler Study 02/29/24 12:29 IMPRESSION: 1: No lower extremity deep venous thrombosis. Chest X-Ray 03/01/24 06:08 Impression: Focal opacity left lung base, which could reflect focal pneumonia or possibly at electatic change. Continued follow-up advised. Labs Labs: Laboratory Tests 03/03/24 05:43 03/03/24 05:43 Calcium 7.9 L Magnesium 2.2 Total Bilirubin 0.4 AST 24 ALT 15 Alkaline Phosphatase 54 Total Protein 6.0 L Albumin 3.2 L
[2024-03-03 12:12] LABS: Glucose Point of Care 153 mg/dl (65-105)
--- NOTE | 2024-03-03 12:28 | PM.DS ---
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 The patient was also complaining of having headache. On arrival to the ER patient's blood pressures were in the 200s over 100s. The patient was having active dry heaves on arrival to the ER and had bed bugs and all of her belongings. Patient is a poor historian in general and did not give much in review of systems. Through a series of head nods and intermittent verbal responses the patient was able to tell me that she was having lower abdominal pain on palpation. Patient's smelled strongly of urine. She denies any dysuria. She has been having 2-3 loose stools a day but the duration of her loose stools is uncertain. She reports that she is having chest discomfort. She denies the pain being reproducible. But while I was interviewing the patient she was noted to be belching multiple times. When I asked if the chest pain was associated with belching she confirmed that it was. The patient was given a GI cocktail in the ER but the response to the GI cocktail is unknown. She reports that she has chest pain that comes and goes. Cannot elicit information regarding how long pain lasts or the type of pain. Patient's troponin was elevated in the ER slightly more so than her chronic elevation. When the patient arrived to the ER patient discovered evidence of bed bugs and had bed bugs crawling within her purse. The patient's sister stated that she was unaware that her house had bed bugs. The patient told nursing staff that she lives with her sister and [id number]. Nursing staff reports that the patient reported that she does not feel safe at home with her [id number]. The patient's sister reports the nursing staff the patient does not take her medications as directed. patient evetually went into CHF exacerbation adn was intubated, also managed for pneumonia, hypertensive urgency and JOSE DAVID on CKD. Nephrolgoy was consulted he managed diuresis. Patient was eventually extubated, antihyeprtensives asdjust to Clonicidine, Coreg, Hydralazine, Amlodipine and Losartan. PT/OT evaluated and recommended SNF placement and patient discharged today. F/u with PCP in 3-5 days, F/u with nephrology and Gi as instructed. Assessment and Plan (1) Respiratory failure: Qualifiers: Chronicity: acute Respiratory failure complication: hypoxia Qualified Code(s): J96.01 - Acute respiratory failure with hypoxia Code(s): J96.90 - Respiratory failure, unspecified, unspecified whether with hypoxia or hypercapnia Status: Acute Assessment and Plan: 02/24/2024: Patient initially presented with nausea, vomiting, hypertensive urgency -on the night of 02/25/2024, patient had significant dyspnea, hypoxia with O2 sats in the 50s to 70 with central cyanosis, she was in impending respiratory failure -02/25/2024: Intubated on the medical floor and transferred to ICU for further management -02/28: extubated after a successful weaning trial -currently on room air with adequate O2 sat -currently on nasal cannula -encourage incentive spirometry (2) Hypertensive urgency: Code(s): I16.0 - Hypertensive urgency Status: Acute Assessment and Plan: After extubation patient's blood pressures have been elevated and was restarted on on nicardipine infusion. on 02/28 -currently has been off nicardipine infusion since 11:00 a.m. on 03/01 -continue Coreg 12.5mg bid, Norvasc 10mg, and hydralazine 25mg, Clonidine 0.2mg and Losartan 100mg daily Patient counseled about compliance with meds F/u with PCP (3) Pulmonary edema: Qualifiers: Chronicity: acute Qualified Code(s): J81.0 - Acute pulmonary edema Code(s): J81.1 - Chronic pulmonary edema Status: Acute Assessment and Plan: Pulmonary edema could be multifactorial likely related to hypertensive urgency, mitral regurg, CHF more pulmonary hypertension -continue medications as above ECHO showed diastolic dysfunction discharged on lasix 20mg daily, continue jardiance 02/27/2024: Echocardiogram Summary 1. Left ventricular chamber dimension is normal. 2. There is mildly increased left ventricular wall thickness. 3. Left ventricular systolic function is normal, estimated at 60-65%. 4. There is no aortic valve stenosis. 5. There is no aortic valve regurgitation. 6. There is no mitral valve stenosis. 7. There is no mitral valve regurgitation. 8. The left ventricular diastolic function is grade I diastolic dysfunctio (4) Pneumonia: Qualifiers: Pneumonia type: aspiration pneumonia Aspiration pneumonia type: due to gastric secretions Laterality: unspecified laterality Code(s): J18.9 - Pneumonia, unspecified organism Status: Acute Assessment and Plan: Patient did have nausea, vomiting prior to admission, he also has been having dry heaves when she was in the hospital, sudden acute onset respiratory failure, suspect aspiration versus pulmonary edema -continue ceftriaxone for total of 7 days ending on 03/03/2024 -status post azithromycin and Flagyl (5 day course) completed abx (5) Acute exacerbation of CHF (congestive heart failure): Qualifiers: Heart failure type: unspecified Qualified Code(s): I50.9 - Heart failure, unspecified Code(s): I50.9 - Heart failure, unspecified Status: Acute Assessment and Plan: Patient with hypertensive urgency, pulmonary edema, hypoxemia, requiring intubation -restarted home Jardiance -on lasix 20mg daily -echocardiogram this admission as above (6) Acute kidney injury: Code(s): N17.9 - Acute kidney failure, unspecified Status: Acute Assessment and Plan: Acute on chronic kidney disease, could be related congestive changes, hypertension, diabetes, chronic kidney disease -patient has been diuresing well -will hold diuresis his elevated BUN and creatinine -nephrology has been consulted -monitor urine output, renal function electrolytes 02/27: Renal ultrasound showed a couple of nonobstructing left renal stones, no hydronephrosis in either kidney Cr 1.3 which is her baseline, thus resolved (7) History of diabetes mellitus: Code(s): Z86.39 - Personal history of other endocrine, nutritional and metabolic disease Status: Acute Assessment and Plan: Continue Accu-Cheks and sliding scale insulin, continue Lantus -hemoglobin A1c was 7.3 this admission contiue home regimen (8) Mitral regurgitation: Code(s): I34.0 - Nonrheumatic mitral (valve) insufficiency Status: Acute Assessment and Plan: History of moderate mitral valve regurgitation on echocardiogram done in October of 2002 Echocardiogram as above (9) Electrolyte abnormality: Code(s): E87.8 - Other disorders of electrolyte and fluid balance, not elsewhere classified Status: Acute Assessment and Plan: Hypernatremia has resolved F/u with PCP in 3-5 days F/u with Gi and Nephrology as instructed Time Spent with Patient Time attestation: Total time spent providing and/or coordinating discharge services: DS: Data Data Completed and Pending Labs on day of discharge: Labs from last 24 hours 03/03/24 03/03/24 03/03/24 11:33 08:04 05:43 WBC 9.1 RBC 4.52 Hgb 12.9 Hct 39.2 MCV 86.7 MCH 28.5 MCHC 32.9 RDW 13.3 Plt Count 236 MPV 12.3 H Sodium 136 L Potassium 3.3 L Chloride 102 Carbon Dioxide 27 Anion Gap 7 BUN 28 H Creatinine 1.30 H Estim Creat Clear Calc 38 Estimated GFR 42 L Glucose 91 POC Capillary Glucose 153 H 83 Calcium 7.9 L Magnesium 2.2 Total Bilirubin 0.4 AST 24 ALT 15 Alkaline Phosphatase 54 Total Protein 6.0 L Albumin 3.2 L 03/02/24 03/02/24 20:55 16:23 WBC RBC Hgb Hct MCV MCH MCHC RDW Plt Count MPV Sodium Potassium Chloride Carbon Dioxide Anion Gap BUN Creatinine Estim Creat Clear Calc Estimated GFR Glucose POC Capillary Glucose 95 75 Calcium Magnesium Total Bilirubin AST ALT Alkaline Phosphatase Total Protein Albumin Discharge Plan Discharge Attending physician on discharge: Aggie Henderson Consulting providers: Vanessa Haynes; García Burnett; Lisbeth Brown Discharging Clinician: Aggie Henderson Anticipated Discharge Date/Time: 03/03/24 12:20 Patient Disposition: SNF Activity: as tolerated Diet: as tolerated Stand Alone Forms: General Discharge Information Follow-up/Referrals: Paco,TWAN Hale [Primary Care Provider] - (F/u with PCP in 3-5 dyas ) Lisbeth Brown MD [Physician] - (F/u with Dr Kanugo as instructed ) García Burnett MD [Physician] - (F/u with GI as instructed ) Discharge Medications: New clonidine HCl 0.2 mg Tablet 0.2 mg PO Q12HR Qty: 30 1RF carvedilol [Coreg] 12.5 mg Tablet 12.5 mg PO Q12HR Qty: 30 1RF hydralazine 25 mg Tablet 25 mg PO TID Qty: 30 1RF losartan 100 mg Tablet 100 mg PO DAILY Qty: 30 0RF furosemide 20 mg Tablet 20 mg PO DAILY Qty: 30 0RF amlodipine 10 mg Tablet 10 mg PO DAILY Qty: 30 1RF Continued aspirin 81 mg tablet,chewable 81 mg PO DAILY Januvia 100 mg tablet 100 mg PO DAILY Jardiance 10 mg tablet 10 mg PO DAILY omeprazole 40 mg capsule,delayed release(DR/EC) 40 mg PO DAILY Date of admission: 02/24/24 02:03 Primary Care Provider: DoronAlexia Admitting Provider: Malorie Pacheco Attending physician on admission: Malorie Pacheco Condition: Improved
[2024-03-03] MEDS: FUROSEMIDE 20 MG TABLET PO (12:30)
[2024-03-03] MEDS: ACETAMINOPHEN 325 MG TABLET 650 MG PO (16:57)
[2024-03-03 17:03] LABS: Glucose Point of Care 79 mg/dl (65-105)
== END 2024-03-03 18:55 | DRG 682 ==
LOC: ANHED 02-24 00:42 → ANHIMU 02-24 04:25 → ANHICU 02-25 21:22 → ANH3MEDSUR 03-02 15:02
PROVIDERS: General Practice; Internal Medicine; Nurse Practitioner Adult Health; Admitting Provider Internal Medicine; Emergency Provider Emergency Medicine; PCP Physician Assistant; Visit Provider Internal Medicine
DX: N17.9 Acute kidney failure, unspecified (principal); E43 Unspecified severe protein-calorie malnutrition; J69.0 Pneumonitis due to inhalation of food and vomit; J96.01 Acute respiratory failure with hypoxia; I16.1 Hypertensive emergency; I69.351 Hemiplegia and hemiparesis following cerebral infarction affecting right dominant side; E87.0 Hyperosmolality and hypernatremia; E11.22 Type 2 diabetes mellitus with diabetic chronic kidney disease; I12.9 Hypertensive chronic kidney disease with stage 1 through stage 4 chronic kidney disease, or unspecified chronic kidney disease; I50.9 Heart failure, unspecified; N18.9 Chronic kidney disease, unspecified; R19.7 Diarrhea, unspecified; F17.210 Nicotine dependence, cigarettes, uncomplicated; B88.8 Other specified infestations; R19.5 Other fecal abnormalities; E87.8 Other disorders of electrolyte and fluid balance, not elsewhere classified; E11.65 Type 2 diabetes mellitus with hyperglycemia; I34.0 Nonrheumatic mitral (valve) insufficiency; E87.6 Hypokalemia; E86.0 Dehydration; T50.995A Adverse effect of other drugs, medicaments and biological substances, initial encounter; I69.328 Other speech and language deficits following cerebral infarction; Z91.148 Patient's other noncompliance with medication regimen for other reason; Z87.442 Personal history of urinary calculi; Z68.24 Body mass index [BMI] 24.0-24.9, adult
CPT/HCPCS: 31500; 36415; 36600; 70450; 71045; 74176; 76775; 80048; 80053; 80061; 81001; 82274; 82375; 82805; 82948; 83036; 83050; 83605; 83690; 83735; 84100; 84478; 84484; 85025; 85027; 85610; 85730; 86140; 87040; 87086; 87641; 93005; 93970; 94002; 94003; 94640; 94660; 96361; 96374; 96375; 97161; 97162; 97165; 97166; 99285; A9270; C8929; J0330; J0360; J0456; J0696; J1650; J1815; J1836; J1940; J2060; J2250; J2404; J2405; J2470; J2704; J2919; J3010; J7030; J7060; J7120; Q9957

== ENCOUNTER 2024-03-03 20:28 | Emergency (ER) | payer BC, SELFPAY ==
[2024-03-03 20:37] VITALS: BP 171/94; PULSE 65; RESP 18; TEMP 36.4; O2SAT 99
--- NOTE | 2024-03-03 21:36 | PC.NURSE ---
Pt reports wanting to leave and denies needing to be seen. Pt was found outside, dressed in street clothing, smoking a cigarette. Pt states Cece' is on her way to come get her from the hospital.
--- NOTE | 2024-03-03 22:00 | PC.NURSE ---
Pt had a bowel movement outside on bench. Pt is aware of cab voucher to take her home. Pt agrees is and is wanting to go home at this time.
--- NOTE | 2024-03-03 22:16 | PC.NURSE ---
patient arrived by ems to triage. patient refused to be seen in er and stated she just wanted to go home. patients sister called by this RN who stated patient could come to her house but she had no transportation to get patient. Cab called to take patient to sisters residence in [place]
--- NOTE | 2024-03-03 22:46 | PC.NURSE ---
Patients cab ride arrived, patient was assisted into cab and cab voucher given to cable puller. patient left with her belongings in hand. Patient marked as left without being seen, triaged.
== END 2024-03-03 23:13 | disposition left against medical advice (07) ==
LOC: ANHED 23:10
PROVIDERS: PCP Physician Assistant
DX: Z53.21 Procedure and treatment not carried out due to patient leaving prior to being seen by health care provider (principal)
CPT/HCPCS: 99199

== ENCOUNTER 2024-03-05 10:32 | Inpatient (IN) | payer BC, SELFPAY ==
[2024-03-05] VITALS (14 sets, daily range): BP systolic 137–184; BP diastolic 72–100; PULSE 73–106; RESP 14–20; TEMP 36.5–37.3; O2SAT 97–100; BMI 24.7
--- NOTE | ~2024-03-05 | CT_ITS ---
CT abdomen pelvis w con Ordering provider: Ina Belcher History: 64 years Female with . leukocytosis, transaminitis . Comparison: None. Technique: CT abdomen and pelvis with IV and without oral contrast. Automated exposure control and it erative reconstruction technique were employed. The dose-length product was 936.35 mGy-cm. 100 mL Omn ipaque 350 was given IV. Findings: VISUALIZED LOWER CHEST: Dependent atelectatic changes. UPPER ABDOMINAL ORGANS: Liver: Normal. Gallbladder: Status post cholecystectomy. Spleen: Normal. Stomach/duodenum: Sliding hiatus hernia. Pancreas: Atrophic. Adrenals: Normal. Kidneys: Small cyst in the right kidney upper pole. Stone in the left kidney lower pole. PELVIC ORGANS: The bladder is underfilled with Hayes's catheter in the bladder. BOWEL AND MESENTERY: Colon: No evidence of diverticulitis. Normal appendix. Small Bowel: Normal. No obstruction. Peritoneum/mesentery: No free air or free fluid. No mesenteric lymphadenopathy. RETROPERITONEUM: Mild atheromatous disease of the abdominal aorta. No retroperitoneal lymphadenopat hy. MUSCULOSKELETAL: Superficial soft tissues: Soft tissue density in the right inguinal area may be the small seroma. Cli nical correlation advised. Otherwise, The superficial soft tissues are normal. Bones: Fracture of the left femoral neck. Age appropriate degenerative changes of the spine. Spinal s timulator is seen in the left side of the subcutaneous tissues posteriorly. IMPRESSION: 1. Fracture of the left femoral neck. 2. Stone in the left kidney lower pole. 3. Possible small seroma in the right inguinal area. 4. Sliding hiatus hernia. 5. Atrophic pancreas. Reviewed, dictated and finalized at location A.
--- NOTE | ~2024-03-05 | CT_ITS ---
CT brain wo con Ordering provider: Ina Belcher PA-C History: 64 years Female with . AMS . Comparison: December 24, 2023 Technique: CT of the head without contrast. Radiation reduction technique utilized. DLP is 605.33 mGy-cm. FINDINGS: Motion artifacts degraded the images. BRAIN PARENCHYMA AND CSF SPACES: Moderate leukoaraiosis and diffuse cortical atrophy. Moderate athero matous disease. Encephalomalacia in the left frontal lobe is seen suggestive of old infarct. Old infa rct in the left internal capsule posterior limb is also noted. No midline shift, mass effect or hemor rhage. The brain parenchyma and CSF spaces are otherwise normal. VISUALIZED PARANASAL SINUSES: Well aerated. MASTOIDS: Well aerated. BONES: The bones appear intact. SOFT TISSUES: Visualized nasopharynx is normal. Superficial soft tissues are normal. IMPRESSION: No acute intracranial findings. Brain atrophy with deep white matter changes. Old infarct with encephalomalacia in the left frontal lobe. Reviewed, dictated and finalized at location A.
--- NOTE | ~2024-03-05 | XR_ITS ---
XR chest 1V portable Ordering provider: Ina Belcher PA-C History: 64 years Female with . possible hip fx . Comparison: March 05, 2024 FINDINGS: MEDIASTINUM: The cardiac silhouette is slightly enlarged. Congestive nidia. LUNGS: No infiltrates, effusions or pneumothorax. OTHER: No free air under the diaphragm. IMPRESSION: No acute cardiopulmonary pathology. Reviewed, dictated and finalized at location A.
--- NOTE | ~2024-03-05 | XR_ITS ---
EXAMINATION: XR surgery orthopedic DATE: 03/06/2024 14:04 INDICATION: Intraoperative evaluation during left total hip arthroplasty TECHNIQUE: Frontal view of the left hip was obtained. COMPARISON: 03/15/2024 FINDINGS: Intraoperative image during a left total hip arthroplasty demonstrate resection of the fractured left femoral head and neck and placement of a bipolar type left hip hemiarthroplasty which is in near leann tomic alignment on the AP projection. Portions of the pelvis are obscured by excluded from the field- of-view were obscured by a bolster. No fractures in the visualized bones. IMPRESSION: 1. Expected appearance during bipolar type left hip hemiarthroplasty. Reviewed, dictated and finalized at location B.
--- NOTE | ~2024-03-05 | XR_ITS ---
XR hip LT 2V w AP pelvis Ordering provider: Ina Belcher PA-C History: . left hip fracture . Comparison: None. FINDINGS: BONES: Fracture of the left femoral neck. HIP JOINT SPACES: Slight narrowing bilaterally. SACROILIAC JOINT SPACES/LUMBAR SPINE: The sacroiliac joint spaces are normal. Mild degenerative dillard es of the visualized lower lumbar spine. PUBIC SYMPHYSIS: Normal. SOFT TISSUES: Normal. Spinal stimulator is seen in the left side. IMPRESSION: Fracture left femoral neck. Reviewed, dictated and finalized at location A. IMPRESSION: Fracture left femoral neck.
--- NOTE | ~2024-03-05 | XR_ITS ---
EXAMINATION: XR hand RT min 3V DATE: 03/05/2024 14:51 INDICATION: Right hand swelling and pain. TECHNIQUE: 3 views of right hand were obtained. COMPARISON: Right wrist radiographs 03/21/16 FINDINGS: Alignment is normal. No acute fracture. There is an old healed fracture of neck of fifth me tacarpal. Joint spaces are normal. IMPRESSION: 1. No acute fracture. Reviewed, dictated and finalized at location A. IMPRESSION: 1. No acute fracture.
--- NOTE | ~2024-03-05 | XR_ITS ---
EXAMINATION: XR chest 1V portable DATE: 03/05/2024 13:39 INDICATION: Altered mental status. TECHNIQUE: A single frontal view of the chest was obtained. COMPARISON: Chest single view 03/01/2024 FINDINGS: There is no pneumonia, pleural effusion, or pneumothorax. Cardiomegaly is noted. IMPRESSION: 1. Cardiomegaly. Reviewed, dictated and finalized at location A. IMPRESSION: 1. Cardiomegaly.
--- NOTE | 2024-03-05 10:42 | ECG_ITS ---
Test Date: 2024-03-05 10:46:25 Measurements Intervals [place] Rate: 84 P: 67 DE: 127 QRS: -60 QRSD: 94 T: 97 QT: 389 QTc: 462 Interpretive Statements SIGNIFICANT BASELINE ARTIFACT SINUS RHYTHM POSSIBLE LEFT ATRIAL ENLARGEMENT LEFT AXIS DEVIATION [QRS AXIS < -30] LEFT VENTRICULAR HYPERTROPHY WITH ST-T CHANGE BASELINE ARTIFACT- I, II, III, AVR, AVL, AVF, V1-V6 BORDERLINE ECG Compared to ECG 02/25/2024 20:35:58 HEART RATE HAS DECREASED Electronically Signed On 03-05-2024 10:50:45 CDT by Arsenio Escalona D.O.
--- NOTE | 2024-03-05 11:31 | ED.AMS ---
HPI - Altered Mental Status General Chief Complaint: Altered Mental Status <LENNOX Greenwood Last Filed: 03/05/24 18:51> Stated Complaint: AMS <LENNOX Greenwood Last Filed: 03/05/24 18:51> Time Seen by Provider: 03/05/24 10:40 <Ina Belcher PA-C - Last Filed: 03/05/24 18:51> Source: patient <LENNOX Greenwood Last Filed: 03/05/24 18:51> Mode of arrival: EMS <LENNOX Greenwood Last Filed: 03/05/24 18:51> Limitations: altered mental status <LENNOX Greenwood Last Filed: 03/05/24 18:51> History of Present Illness HPI narrative: This is a 64-year-old female that presents to the emergency department for altered mental status. Patient's friend called 911 to have her evaluated. Patient recently left AMA from a nursing facility. History of previous stroke. <LENNOX Greenwood Last Filed: 03/05/24 18:51> Related Data Home Medications: Home Medications Medication Instructions Recorded Confirmed omeprazole 40 mg capsule,delayed 40 mg PO DAILY 11/15/21 03/05/24 release aspirin 81 mg chewable tablet 81 mg PO DAILY 02/24/24 03/05/24 empagliflozin 10 mg tablet 10 mg PO DAILY 02/24/24 03/05/24 (Jardiance) sitagliptin phosphate 100 mg 100 mg PO DAILY 02/24/24 03/05/24 tablet (Januvia) <LENNOX Greenwood Last Filed: 03/05/24 18:51> Allergies/Adverse Reactions: Allergies Allergy/AdvReac Type Severity Reaction Status Date / Time insulin glargine Allergy Severe Swelling Verified 03/05/24 20:35 amoxicillin Allergy Unknown Unknown Verified 03/05/24 20:35 cephalexin Allergy Unknown Unknown Verified 03/05/24 20:35 doxycycline Allergy Unknown Itching Verified 03/05/24 20:35 latex Allergy Unknown Unknown Verified 03/05/24 20:35 Penicillins Allergy Unknown Unknown Verified 03/05/24 20:35 sulfamethoxazole Allergy Unknown Swelling Verified 03/05/24 20:35 sumatriptan Allergy Unknown Unknown Verified 03/05/24 20:35 trazodone Allergy Unknown Swelling Verified 03/05/24 20:35 trimethoprim Allergy Unknown Swelling Verified 03/05/24 20:35 clindamycin Allergy Unknown Verified 03/05/24 20:35 <Ina Belcher PA-C - Last Filed: 03/05/24 18:51> Review of Systems Review of Systems: ROS unobtainable: Yes unobtainable due to mental status <Ina Belcher PA-C - Last Filed: 03/05/24 18:51> [facility] Past Medical History Medical History: Medical History Acute on chronic kidney failure Diarrhea History of CVA (cerebrovascular accident) Right-sided weakness and expressive aphasia HTN (hypertension) Medically noncompliant Occult blood positive stool Respiratory failure Type 2 diabetes mellitus <Ina Belcher PA-C - Last Filed: 03/05/24 18:51> Surgical History Surgical History: Surgical History No pertinent past surgical history <Ina Belcher PA-C - Last Filed: 03/05/24 18:51> Family History Family History: Family History Other Unknown family medical history <Ina Belcher PA-C - Last Filed: 03/05/24 18:51> Social History Social History: Social History Social History: Code status: Full code Surrogate decision maker: Sister Smoking packs per day: 1 Smoking cigarettes per day: 20.0 Years smoked: 36 Smoking pack-years: 36.00 Smoking status: Current every day smoker Tobacco type: cigarettes Alcohol intake: never Substance use: never Substance use type: does not use Do You Feel Safe in your Home?: No Lack of Transportation: No Lack of Food: Never True Current Housing: I Have Housing Concerned About Future Housing: Decline to Answer Difficulty Paying Gas/Electric Bills: Decline to Answer Difficulty Paying for Meds: Decline to Answe
[2024-03-05 12:04] LABS: Add Urine Microscopic? YES; Appearance Urine Cloudy (Clear); Bacteria Urine None Seen /hpf; Bilirubin Urine Negative (Negative); Blood Urine 2+ (Negative); Budding Yeast Urine Present /hpf; Color Urine Yellow (Yellow); Glucose Urine UA 3+ mg/dL (Negative); Ketones Urine 1+ mg/dL (Negative); Leukocyte Esterase Ur Negative LEU/UL (Negative); Need Manual Microscopic Reviewed; Nitrate Urine Negative (Negative); Protein Urine 1+ mg/dL (Negative); Specific Grav Ur 1.019 (1.001-1.035); Squamous Epithelial Cell Urine Occasional /hpf (Few); Urobilinogen Urine 0.2 mg/dL (<2.0)
[2024-03-05 12:07] LABS: Ethanol < 10 mg/dL (<10)
[2024-03-05 12:08] LABS: Lactic Acid Reflex 1.5 mmol/L (0.7-2.0)
[2024-03-05 12:09] LABS: Barbiturate Screen Urine Negative (Negative); Benzodiazepines Screen Urine Positive (Negative)
[2024-03-05 12:15] LABS: Cannabinoid Screen Urine Negative (Negative); Cocaine Screen Urine Negative (Negative); Opiate Screen Urine Negative (Negative); Phencyclidine Screen Urine Negative (Negative)
[2024-03-05 12:16] LABS: Amphetamine Screen Urine Positive (Negative)
[2024-03-05 12:16] LABS: Alanine Aminotransferase 37 U/L (6-35); Albumin Level 3.9 g/dL (3.5-5.1); Alkaline Phosphatase 87 U/L (38-126); Anion Gap 17 mmol/L (4-12); Aspartate Amino Transferase 62 U/L (14-36); Bilirubin,Total 1.1 mg/dL (0.2-1.3); Blood Urea Nitrogen 35 mg/dL (7-17); Carbon Dioxide 18 mmol/L (22-30); Chloride 102 mmol/L (98-107); Estimated CRCL calculation 41 ml/min; Estimated Glomerular Filt Rate 46; Glucose 128 mg/dL (65-110); Potassium 3.6 mmol/L (3.4-5.0); Sodium 137 mmol/L (137-145)
[2024-03-05 12:16] LABS: Basophils Percent Auto 0.1 % (0.2-1.2); Eosinophils Percent Auto 0.1 % (0-4.4); Hematocrit 36.8 % (37.0-47.0); Hemoglobin 12.3 g/dL (12.0-15.0); Immature Granulocyte Absolute 0.09 K/mm3 (0.00-0.031); Immature Granulocyte Percent A 0.7 % (0-0.5); Lymphocytes Absolute Auto 1.84 K/mm3 (0.9-3.2); Lymphocytes Percent Auto 13.8 % (18.3-44.2); Mean Corpuscular HGB Conc 33.4 g/dl (32-36); Mean Corpuscular Hemoglobin 29.1 pg (26-34); Mean Platelet Volume 12.1 fl (7.4-10.4); Monocytes Absolute Auto 0.5 K/mm3 (0.1-0.6); Monocytes Percent Auto 3.9 % (2.6-8.5); Neutrophils Absolute Auto 10.9 K/mm3 (1.3-6.7); Neutrophils Percent Auto 81.4 % (45.5-73.1); Platelet Count Result 226 k/mm3 (150-375); Red Blood Count 4.23 M/mm3 (4.2-5.4); Red Cell Distribution Width 13.6 % (11.5-14.5); White Blood Count 13.3 K/mm3 (4.5-10.0)
[2024-03-05 12:27] LABS: INR 1.2; Prothrombin Time 15.6 Seconds (11.1-14.7)
[2024-03-05 12:28] LABS: Partial Thromboplastin Time 26.1 Seconds (22.3-36.8)
[2024-03-05 12:37] LABS: Methadone Screen Urine Negative (Negative)
[2024-03-05] MEDS: SODIUM CHLORIDE 0.9% IV 1,000 ML 999 ML IV CONT (13:20)
[2024-03-05 13:25] LABS: Chlamydia trachomatis NOT DETECTED (NOT DETECTE); Neisseria gonorrhoeae PCR NOT DETECTED (NOT DETECTE)
[2024-03-05 13:49] LABS: Trichomonas Vag PCR NOT DETECTED (NOT DETECTE)
[2024-03-05 13:50] LABS: Creatine Kinase 693 U/L (30-135); Lipase 30 U/L (23-300)
--- NOTE | 2024-03-05 17:54 | PM.IMHP ---
H&P: HPI History of Present Illness Date/Time: 03/05/24 18:00 Chief Complaint: Altered mental status. Narrative: This is a chronically ill 64-year-old female with history of stroke with residual deficits including word-finding and slowed speech as well as right-sided weakness, hypertension, type 2 diabetes mellitus, chronic kidney disease, and other comorbidities who presented to the emergency department via EMS from home for evaluation of altered mental status. She is a poor historian and I have not been able to get a hold of her sister (patient requests that I do not speak with her) or her glue maker at home. She was recently admitted to the hospital with acute respiratory failure due to CHF and hypertensive emergency. She was discharged to a rehab on 03/03/2024 but left there AMA the following day. She is reportedly back at her home and has a glue maker named Riley who speaks primarily Malawian. It is my understanding that he called 911 as the patient was confused today however due to language barrier the roll up machine operator and EMS were unable to get much in the way of history. On EMS arrival her pants were soiled with urine and fecal material. At the time my evaluation the patient is alert and does not and shake her head and says a few words. She attempts to follow simple commands. She has pain over the left hip with palpation and passive range of motion. She does not recall having any falls or injuries. Her only complaint is that of being thirsty and hungry. She denies headache, neck ache, fever, sore throat, cough, chest pain, shortness of breath, abdominal pain, nausea, vomiting, and diarrhea. In the ED: Her vital signs were stable on arrival. Labs were significant for WBC count of 13.3, carbon dioxide 18, anion gap 17, BUN 35, creatinine 1.20, glucose 128, lactic acid 1.5, AST 62, ALT 37, total CK 693, CRP 14.3. Urinalysis was positive for 1+ protein, 3+ glucose, 1+ ketones, 2+ blood, 11 to 20 RBC and WBC, 11 to 20 casts, occasional squamous cells, and budding yeast. Urine drug screen was positive for benzodiazepines and amphetamines. Brain CT showed old infarct with encephalomalacia in left frontal lobe with brain atrophy and deep white matter changes though no acute findings. Chest x-ray showed cardiomegaly. CT of the abdomen and pelvis showed a fracture of left femoral neck and stones in the left kidney lower pole. Right hand x-ray showed no fracture. She is being admitted in this setting for further evaluation and orthopedic consultation. Review of Systems Review of Systems: 12 systems were reviewed and are negative except for as per HPI. [facility] Past Medical History Medical History (Updated 03/05/24 @ 22:05 by Tati Ordaz PA-C) Breast cancer Cerebrovascular accident Residual right-sided weakness and expressive aphasia. Chronic kidney disease Cognitive impairment Hypertension Kidney stone Type 2 diabetes mellitus Surgical History Surgical History No pertinent past surgical history Family History Family History Other Unknown family medical history Social History Social History (Updated 03/05/24 @ 22:01 by Tati Ordaz PA-C) Social History: Surrogate medical decision maker: Son Jeyson Ibanez who lives in [place]. She does not want her sister making decisions for her. Code status: Full code. Smoking packs per day: 1 Smoking cigarettes per day: 20.0 Years smoked: 36 Smoking pack-years: 36.00 Smoking status: Current every day smoker Tobacco type: cigarettes Alcohol intake: never Substance use: never Substance use type: does not use Do You Feel Safe in your Home?: No Lack of Transportation: No Lack of Food: Never True Current Housing: I Have Housing Concerned About Future Housing: Decline to Answer Difficulty Paying Gas/Electric Bills: Decline to Answer Difficulty Paying for
--- NOTE | 2024-03-05 18:02 | PM.CNOR ---
Assessment and Plan Assessment and plan (1) Fracture of femoral neck, left: Code(s): S72.002A - Fracture of unspecified part of neck of left femur, initial encounter for closed fracture Status: Acute Assessment and Plan: Patient has Left Femoral Neck Fracture. Was ambulatory before. Recommend Bipolar pending medical approval. History of Present Illness HPI Consult date: 03/05/24 Chief complaint: AMS Review of Systems Musculoskeletal: Musculoskeletal: Reports arthralgias, Reports joint swelling and Reports stiffness PMFSH Past Medical History Medical History (Updated 03/05/24 @ 18:04 by Haja Chisholm MD) Acute on chronic kidney failure Diarrhea History of CVA (cerebrovascular accident) Right-sided weakness and expressive aphasia HTN (hypertension) Medically noncompliant Occult blood positive stool Respiratory failure Type 2 diabetes mellitus Surgical History Surgical History No pertinent past surgical history Family History Family History (Updated 02/24/24 @ 07:44 by Malorie Pacheco DO) Other Unknown family medical history Social History Social History (Updated 02/24/24 @ 07:45 by Malorie Pacheco DO) Social History: Code status: Full code Surrogate decision maker: Sister Smoking packs per day: 0.5 Smoking cigarettes per day: 10.0 Years smoked: 36 Smoking pack-years: 18.00 Smoking status: Current every day smoker Tobacco type: cigarettes Alcohol intake: never Substance use: unknown Do You Feel Safe in your Home?: No Lack of Transportation: No Lack of Food: Never True Current Housing: I Have Housing Concerned About Future Housing: Decline to Answer Difficulty Paying Gas/Electric Bills: Decline to Answer Difficulty Paying for Meds: Decline to Answer Currently Unemployed: Decline to Answer Education: Decline to Answer Difficulty w/ Childcare or Family Care: Decline to Answer Spiritual care concerns: No Meds Home Medications and Allergies Home Medications Medication Instructions Recorded Confirmed Type omeprazole 40 mg capsule,delayed 40 mg PO DAILY 11/15/21 02/24/24 History release aspirin 81 mg chewable tablet 81 mg PO DAILY 02/24/24 02/24/24 History empagliflozin 10 mg tablet 10 mg PO DAILY 02/24/24 02/24/24 History (Jardiance) sitagliptin phosphate 100 mg 100 mg PO DAILY 02/24/24 02/24/24 History tablet (Januvia) amlodipine 10 mg tablet 10 mg PO DAILY #30 tabs 03/03/24 Rx carvedilol 12.5 mg tablet (Coreg) 12.5 mg PO Q12HR #30 tabs 03/03/24 Rx clonidine HCl 0.2 mg tablet 0.2 mg PO Q12HR #30 tabs 03/03/24 Rx furosemide 20 mg tablet 20 mg PO DAILY #30 tabs 03/03/24 Rx hydralazine 25 mg tablet 25 mg PO TID #30 tabs 03/03/24 Rx losartan 100 mg tablet 100 mg PO DAILY #30 tabs 03/03/24 Rx Allergies Allergy/AdvReac Type Severity Reaction Status Date / Time insulin glargine Allergy Severe Swelling Verified 11/04/22 16:57 amoxicillin Allergy Unknown Unknown Verified 02/27/24 13:26 cephalexin Allergy Unknown Unknown Verified 02/27/24 13:26 doxycycline Allergy Unknown Itching Verified 11/04/22 16:57 latex Allergy Unknown Unknown Verified 11/04/22 16:57 Penicillins Allergy Unknown Unknown Verified 02/27/24 13:26 sulfamethoxazole Allergy Unknown Swelling Verified 11/04/22 16:57 sumatriptan Allergy Unknown Unknown Verified 11/04/22 16:57 trazodone Allergy Unknown Swelling Verified 11/04/22 16:57 trimethoprim Allergy Unknown Swelling Verified 11/04/22 16:57 clindamycin Allergy Unknown Verified 11/04/22 16:57 Vital Signs Vital Signs - 24 hr 03/05/24 11:06 03/05/24 11:07 03/05/24 13:42 Temperature 97.7 F 97.8 F Pulse Rate 87 90 Respiratory Rate 16 18 Blood Pressure 137/72 171/72 H Pulse Oximetry 98 98 Oxygen Delivery Room Air Room Air 03/05/24 11:30 03/05/24 12:38 03/05/24 13:01 Temperature 97.8 F 97.9 F Pulse Rate 73 73 85
--- NOTE | 2024-03-05 20:15 | ADMGEN ---
This patient, Adalgisa Tirado, was admitted to 3 Med Surg Room 317-01. Patient/family oriented to hospital policies and general routines including ID bracelet, bed and alarms, visiting hours, pain management, procedures, bathroom and other care routines, personal items, smoking policy, room service/diet, and visiting hours. Information on how to activate the Rapid Response Team has been discussed. Patient/Family are encouraged to report perceived risks to care and to ask questions if they do not understand what they are told or what they should do.
--- NOTE | 2024-03-05 20:41 | PC.NURSE ---
Admission assessment completed via telephone with patient MICHAELCece Luis. Patient refused to answer questions upon arrival to room.
[2024-03-06] VITALS (19 sets, daily range): BP systolic 102–208; BP diastolic 51–94; PULSE 80–102; RESP 10–18; TEMP 36.3–37.3; O2SAT 93–100
[2024-03-06] MEDS: hydrALAZINE HCL 20 MG/ML VIAL 10 MG IV PUSH (05:02)
[2024-03-06 07:19] LABS: Hematocrit 37.2 % (37.0-47.0); Hemoglobin 12.4 g/dL (12.0-15.0); Mean Corpuscular HGB Conc 33.3 g/dl (32-36); Mean Corpuscular Volume 86.9 fl (80-100); Mean Platelet Volume 11.4 fl (7.4-10.4); Platelet Count Result 263 k/mm3 (150-375); Red Blood Count 4.28 M/mm3 (4.2-5.4); Red Cell Distribution Width 13.8 % (11.5-14.5); White Blood Count 11.6 K/mm3 (4.5-10.0)
[2024-03-06 07:48] LABS: Alanine Aminotransferase 31 U/L (6-35); Albumin Level 3.3 g/dL (3.5-5.1); Alkaline Phosphatase 76 U/L (38-126); Anion Gap 16 mmol/L (4-12); Aspartate Amino Transferase 40 U/L (14-36); Bilirubin,Total 0.8 mg/dL (0.2-1.3); Blood Urea Nitrogen 25 mg/dL (7-17); Calcium 8.3 mg/dL (8.4-10.2); Carbon Dioxide 19 mmol/L (22-30); Chloride 104 mmol/L (98-107); Estimated CRCL calculation 33 ml/min; Estimated Glomerular Filt Rate 42; Glucose 132 mg/dL (65-110); Magnesium 2.2 mg/dL (1.6-2.3); Potassium 3.5 mmol/L (3.4-5.0); Sodium 139 mmol/L (137-145)
[2024-03-06 08:13] LABS: Glucose Point of Care 138 mg/dl (65-105)
[2024-03-06] MEDS: ACETAMINOPHEN 325 MG TABLET 650 MG PO ×3 (09:44→23:00)
[2024-03-06] MEDS: LACTATED RINGERS 1,000 ML 30 ML IV CONT (10:42)
--- NOTE | 2024-03-06 10:47 | PC.NURSE ---
Pt to pre-op.
--- NOTE | 2024-03-06 11:30 | WPDANESEPPF ---
Anes - Initial Pre Proc Eval Procedure: Operation Date: 03/06/24 12:00 Proposed Procedures p Bipolar Hip Replacement(Left) - Haja Chisholm MD Date/Time: 03/06/24 11:30 Surgeon: Ernesto Kelley MD Pre Op Diagnosis: Left hip fracture, Dehydration Patient Data Age: 64 Gender: F Height: 1.6 m Weight: 63.5 kg Last Vital Signs Temp 37.3 C 03/06/24 11:18 Pulse 99 03/06/24 11:18 Resp 16 03/06/24 11:18 BP 162/80 H 03/06/24 11:18 Pulse Ox 96 03/06/24 11:18 O2 Del Method Room Air 03/06/24 11:18 Allergies Allergy/AdvReac Type Severity Reaction Status Date / Time insulin glargine Allergy Severe Swelling Verified 03/05/24 20:35 amoxicillin Allergy Unknown Unknown Verified 03/05/24 20:35 cephalexin Allergy Unknown Unknown Verified 03/05/24 20:35 doxycycline Allergy Unknown Itching Verified 03/05/24 20:35 latex Allergy Unknown Unknown Verified 03/05/24 20:35 Penicillins Allergy Unknown Unknown Verified 03/05/24 20:35 sulfamethoxazole Allergy Unknown Swelling Verified 03/05/24 20:35 sumatriptan Allergy Unknown Unknown Verified 03/05/24 20:35 trazodone Allergy Unknown Swelling Verified 03/05/24 20:35 trimethoprim Allergy Unknown Swelling Verified 03/05/24 20:35 clindamycin Allergy Unknown Verified 03/05/24 20:35 Home Medications Medication Instructions Recorded Confirmed Type omeprazole 40 mg capsule,delayed 40 mg PO DAILY 11/15/21 03/05/24 History release aspirin 81 mg chewable tablet 81 mg PO DAILY 02/24/24 03/05/24 History empagliflozin 10 mg tablet 10 mg PO DAILY 02/24/24 03/05/24 History (Jardiance) sitagliptin phosphate 100 mg 100 mg PO DAILY 02/24/24 03/05/24 History tablet (Januvia) amlodipine 10 mg tablet 10 mg PO DAILY #30 tabs 03/03/24 03/05/24 Rx carvedilol 12.5 mg tablet (Coreg) 12.5 mg PO Q12HR #30 tabs 03/03/24 03/05/24 Rx clonidine HCl 0.2 mg tablet 0.2 mg PO Q12HR #30 tabs 03/03/24 03/05/24 Rx furosemide 20 mg tablet 20 mg PO DAILY #30 tabs 24 03/05/24 Rx hydralazine 25 mg tablet 25 mg PO TID #30 tabs 03/03/24 03/05/24 Rx Laboratory Tests 03/05/24 03/05/24 03/05/24 11:41 11:43 11:44 WBC RBC Hgb Hct MCV MCH MCHC RDW Plt Count MPV Immature Gran % (Auto) Neut % (Auto) Lymph % (Auto) Mcdowell % (Auto) Eos % (Auto) Baso % (Auto) Lymph # (Auto) Mcdowell # (Auto) Eos # (Auto) Baso # (Auto) Abs Immat Gran (auto) Absolute Neuts (auto) Absolute Nucleated RBC Nucleated RBC % PT INR APTT Sodium 137 mmol/L (137-145) Potassium 3.6 mmol/L (3.4-5.0) Chloride 102 mmol/L (98-107) Carbon Dioxide 18 L mmol/L (22-30) Anion Gap 17 H mmol/L (4-12) BUN 35 H mg/dL (7-17) Creatinine 1.20 H mg/dL (0.7-1.0) Estim Creat Clear Calc 41 ml/min Estimated GFR 46 L (59 - ) Glucose 128 H mg/dL (65-110) POC Capillary Glucose Lactic Acid 1.5 mmol/L (0.7-2.0) Calcium 9.0 mg/dL (8.4-10.2) Magnesium Total Bilirubin 1.1 mg/dL (0.2-1.3) AST 62 H U/L (14-36) ALT 37 H U/L (6-35) Alkaline Phosphatase 87 U/L (38-126) Total Creatine Kinase 693 H U/L (30-135) C-Reactive Protein 14.0 H mg/dL (<1.0) Total Protein Albumin Lipase 30 U/L (23-300) TSH (Reflex) Urine Color Yellow (Yellow) Urine Appearance Cloudy H (Clear) Urine pH 5.0 (5.0-9.0) Ur Specific [place] 1.019 (1.001-1.035) Urine Protein 1+ H mg/dL (Negative) Urine Glucose
[2024-03-06] MEDS: VANCOMYCIN 1,000 MG/NS 250 ML BAG 250 MG IVPB (11:45)
--- NOTE | 2024-03-06 12:06 | WPDHPUPDATE1 ---
History and Physical Update Update Date/Time: 03/06/24 12:06 History and Physical has been reviewed, including an updated exam of the patient. There are NO changes in the patient's condition. Risks, benefits, and alternatives have been discussed and questions answered. Patient agrees to proceed with procedure.
[2024-03-06] MEDS: TRANEXAMIC ACID 1,000MG/ISO100 1,000 MG/100 ML BAG 200 MG IVPB (12:38)
[2024-03-06] MEDS: ceFAZolin 2 GM/D5W 50 ML 2 GM/50 ML BAG IVPB ×2 (12:50→21:15)
--- NOTE | 2024-03-06 14:03 | W.PM.PROC2 ---
Procedure Note - Detailed Date of Procedure 03/06/24 Pre-op Diagnosis Left hip fracture, Dehydration Post-op Diagnosis Same Procedure Performed Bipolar LEFT Surgeon Haja Chisholm MD Anesthesia General Description of Procedure Patient was brought to operating room 8. A general anesthetic was administered. She was placed on the operating room table with the fracture left hip up. Longitudinal incision made. Dissection carried down to the fascia. The fascia split in line over the femur. And then angled up toward the femoral head neck. Femoral neck was delivered into the wound and cut a fingerbreadth above the lesser trochanter. The head was removed and measured 44 millimeters in length a in diameter. The the femur reamed a brochure except for 3 did not fit badly, but I was able to broach to a 4. Of 0 neck was chosen standard stem. This gave excellent fixation. It was somewhat difficult to reduce the fracture the stem. The wound here getting closed with #5. Ethibond #2. Vicryl 2-0 Vicryl and joe. Sterile dressing applied and the patient left the operating in satisfactory condition. Implants Garo and Garo Estimated Blood Loss 300 Packing No Complications No immediate complications Condition Stable Disposition PACU [facility] Billing Surgery - Charge Forward: Surgery Billing (Bipolar [id number])
--- NOTE | 2024-03-06 14:08 | SUR.OPER ---
600mL clear yellow urine drained from padilla catheter at the begining of the case
[2024-03-06 14:36] LABS: Glucose Point of Care 130 mg/dl (65-105)
[2024-03-06] MEDS: SENNA/DOCUSATE SODIUM TABLET 2 TAB PO (17:16)
[2024-03-06] MEDS: FUROSEMIDE 20 MG TABLET PO (17:17)
[2024-03-06] MEDS: EMPAGLIFLOZIN 10 MG TABLET PO (17:17)
[2024-03-06] MEDS: amLODIPine BESYLATE 10 MG TABLET PO (17:17)
[2024-03-06] MEDS: hydrALAZINE HCL 25 MG TABLET PO (17:17)
[2024-03-06] MEDS: RIVAROXABAN 10 MG TABLET PO (17:17)
[2024-03-06] MEDS: PANTOPRAZOLE 40 MG TABLET PO (17:17)
[2024-03-06] MEDS: SODIUM CHLORIDE 0.9% IV 1,000 ML 125 ML IV CONT (17:22)
--- NOTE | 2024-03-06 17:32 | PM.IMPN ---
Progress Note: A&P Assessment and Plan (1) Fracture of neck of left femur: Code(s): S72.002A - Fracture of unspecified part of neck of left femur, initial encounter for closed fracture Status: Acute Assessment and Plan: 03/06/24: Hip and pelvis x-ray showing fracture of the left femoral neck. Abdomen/pelvis CT showed fracture of the left femoral neck Orthopedic surgery consulted Patient had bipolar hip replacement today Continue pain control PT and OT ordered Case management following for outpatient rehab needs Continue Xarelto Continue IV fluids (2) Cognitive impairment: Code(s): R41.89 - Other symptoms and signs involving cognitive functions and awareness Status: Acute Assessment and Plan: 03/06/24: Continue neuro checks (3) Chronic kidney disease: Code(s): N18.9 - Chronic kidney disease, unspecified Status: Acute Assessment and Plan: 03/06/24: Creatinine 1.3 which appears to be the patient's baseline Continue to trend (4) Hypertension: Code(s): I10 - Essential (primary) hypertension Status: Acute Assessment and Plan: 03/06/24: Blood pressure ranging 108/54 to 130/63 Continue amlodipine, hydralazine, and Coreg (5) Type 2 diabetes mellitus: Code(s): E11.9 - Type 2 diabetes mellitus without complications Status: Acute Assessment and Plan: 03/06/24: Blood sugars ranging 130-183 Hgb A1C 7.3 on 02/23/2024 Accu checks AC/HS Low-dose SSI ordered hypoglycemic protocol in place Diabetic diet ordered Continue Jardiance Hold sitagliptin Time Spent With Patient Time with patient: Greater than 35 minutes Subjective Date/time seen: 03/06/24 17:32 Interval history: Interval history: This is a 64-year-old female who presented to the hospital on 03/05/2024 with altered mental status. And was noted to have pain with palpation over the left hip. 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 Chest x-ray showed cardiomegaly. Abdomen pelvis CT shows fracture of the left femoral neck, stone in the left kidney lower pole, possible small seroma in the right inguinal area, sliding hiatal hernia. Hand x-ray was negative. Hip and pelvis x-ray showed fracture of the left femoral neck. Initial labs showed a white blood cell count of 13.3, INR 1.2, bicarb 18, creatinine 1.2, EGFR 46, AST 62, ALT 37, total CK 693, C reactive protein 14.0. UA was obtained and showed cloudy urine appearance, 1+ urine protein 3+ urine glucose, 1+ urine ketones, 2+ urine blood, 11-20 urine RBC, 11-20 urine WBC, yeast present. Urine drug screen was positive for benzodiazepine and amphetamine. STD panel was negative. Patient has a urine culture and a genital culture pending. EKG was done and shown sinus rhythm with left axis deviation with a rate of 84, QTC 462. Last echo was reviewed on 02/27/2024 which shown normal LV systolic function with an estimated EF of 60-65%, grade 1 diastolic dysfunction. Orthopedic surgery was consulted and took patient to the OR today for left bipolar hip replacement. Subjective: Labs today reviewed. Patient denies any fever, chills, nausea, vomiting, diarrhea, abdominal pain, chest pain, shortness a breath. Patient states currently that her pain is at a 0. She is currently on room air, her vital signs are stable, she is afebrile. Review of Systems Review of Systems: 12 systems were reviewed and are negative except for as per HPI. Constitutional: Constitutional: Reports as per HPI and Reports no additional constitutional complaints Eyes: Eyes: Reports as per HPI and Reports no additional eye complaints ENT: Reports system reviewed and no additional complaints, except as documented and Reports as per HPI Cardiovascular: Cardiovascular: Reports as per
[2024-03-06 17:33] LABS: Glucose Point of Care 183 mg/dl (65-105)
[2024-03-06 20:30] LABS: Glucose Point of Care 322 mg/dl (65-105)
[2024-03-06] MEDS: carvediloL 12.5 MG TABLET PO (21:16)
[2024-03-06] MEDS: cloNIDine HCL 0.2 MG TABLET PO (21:16)
[2024-03-06] MEDS: INSULIN ASPART (*BKC) 100 UNITS/ML SUB-Q (21:16)
[2024-03-06] MEDS: HYDROcodone/acetaminophen (*CRX) 5-325 MG TABLET 1 TAB PO (21:26)
[2024-03-07] VITALS (12 sets, daily range): BP systolic 99–125; BP diastolic 47–59; PULSE 59–77; RESP 13–18; TEMP 36.4–37.2; O2SAT 96–100
[2024-03-07] MEDS: SODIUM CHLORIDE 0.9% IV 1,000 ML 125 ML IV CONT (02:00)
[2024-03-07] MEDS: ceFAZolin 2 GM/D5W 50 ML 2 GM/50 ML BAG IVPB ×2 (05:20→12:41)
[2024-03-07] MEDS: ACETAMINOPHEN 325 MG TABLET 650 MG PO ×3 (05:20→18:33)
[2024-03-07 06:26] LABS: Basophils Percent Auto 0.2 % (0.2-1.2); Hematocrit 29.4 % (37.0-47.0); Hemoglobin 9.7 g/dL (12.0-15.0); Immature Granulocyte Absolute 0.07 K/mm3 (0.00-0.031); Immature Granulocyte Percent A 0.5 % (0-0.5); Lymphocytes Absolute Auto 1.38 K/mm3 (0.9-3.2); Lymphocytes Percent Auto 10.8 % (18.3-44.2); Mean Corpuscular Hemoglobin 29.4 pg (26-34); Mean Corpuscular Volume 89.1 fl (80-100); Mean Platelet Volume 11.6 fl (7.4-10.4); Monocytes Percent Auto 7.4 % (2.6-8.5); Neutrophils Absolute Auto 10.4 K/mm3 (1.3-6.7); Neutrophils Percent Auto 81.1 % (45.5-73.1); Platelet Count Result 197 k/mm3 (150-375); Red Cell Distribution Width 13.8 % (11.5-14.5); White Blood Count 12.8 K/mm3 (4.5-10.0)
[2024-03-07 06:38] LABS: Anion Gap 10 mmol/L (4-12); Blood Urea Nitrogen 24 mg/dL (7-17); Calcium 7.7 mg/dL (8.4-10.2); Carbon Dioxide 22 mmol/L (22-30); Chloride 102 mmol/L (98-107); Estimated CRCL calculation 35 ml/min; Estimated Glomerular Filt Rate 38; Glucose 152 mg/dL (65-110); Potassium 3.1 mmol/L (3.4-5.0); Sodium 134 mmol/L (137-145)
[2024-03-07 08:03] LABS: Glucose Point of Care 148 mg/dl (65-105)
[2024-03-07] MEDS: carvediloL 12.5 MG TABLET PO ×2 (08:20→20:21)
[2024-03-07] MEDS: amLODIPine BESYLATE 10 MG TABLET PO (08:20)
[2024-03-07] MEDS: SENNA/DOCUSATE SODIUM TABLET 2 TAB PO (08:20)
[2024-03-07] MEDS: EMPAGLIFLOZIN 10 MG TABLET PO (08:20)
[2024-03-07] MEDS: ASPIRIN 81 MG CHEWABLE TABLET PO (08:20)
[2024-03-07] MEDS: hydrALAZINE HCL 25 MG TABLET PO ×3 (08:20→17:07)
[2024-03-07] MEDS: polyethylene glycoL 3350 17 GM POWD.PACK PO (08:20)
[2024-03-07] MEDS: PANTOPRAZOLE 40 MG TABLET PO ×2 (08:20→17:07)
[2024-03-07] MEDS: cloNIDine HCL 0.2 MG TABLET PO ×2 (08:20→20:21)
[2024-03-07] MEDS: FUROSEMIDE 20 MG TABLET PO (08:20)
[2024-03-07] MEDS: SITagliptin PHOSPHATE 100 MG TABLET PO (08:20)
--- NOTE | 2024-03-07 11:33 | P.PNIM_ITS ---
Progress Note: A&P Assessment and Plan (1) Fracture of neck of left femur: Code(s): S72.002A - Fracture of unspecified part of neck of left femur, initial encounter for closed fracture Status: Acute Assessment and Plan: 03/06/24: * Hip and pelvis x-ray showing fracture of the left femoral neck. * Abdomen/pelvis CT showed fracture of the left femoral neck * Orthopedic surgery consulted * Patient had bipolar hip replacement today * Continue pain control * PT and OT ordered * Case management following for outpatient rehab needs * Continue Xarelto * Continue IV fluids 03/07/24: * Patient is postop day 1 from a left bipolar hip replacement * Oncology following * Continue pain control * Continue PT and OT, currently a max assist with therapy * Case management following (2) Cognitive impairment: Code(s): R41.89 - Other symptoms and signs involving cognitive functions and awareness Status: Acute Assessment and Plan: 03/06/24: * Continue neuro checks 03/07/24: * No change (3) Chronic kidney disease: Code(s): N18.9 - Chronic kidney disease, unspecified Status: Acute Assessment and Plan: 03/06/24: * Creatinine 1.3 which appears to be the patient's baseline * Continue to trend 03/07/24: * Creatinine is 1.4 (4) Hypertension: Code(s): I10 - Essential (primary) hypertension Status: Acute Assessment and Plan: 03/06/24: * Blood pressure ranging 108/54 to 130/63 * Continue amlodipine, hydralazine, and Coreg 03/07/24: * No change to current treatment plan (5) Type 2 diabetes mellitus: Code(s): E11.9 - Type 2 diabetes mellitus without complications Status: Acute Assessment and Plan: 03/06/24: * Blood sugars ranging 130-183 * Hgb A1C 7.3 on 02/23/2024 * Accu checks AC/HS * Low-dose SSI ordered * hypoglycemic protocol in place * Diabetic diet ordered * Continue Jardiance * Hold sitagliptin 03/07/24: * No change to current treatment plan Time Spent With Patient Time with patient: 25 - 35 minutes Subjective Date/time seen: 03/07/24 11:33 Interval history: Interval history: This is a 64-year-old female who presented to the hospital on 03/05/2024 with altered mental status. And was noted to have pain with palpation over the left hip. 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 Chest x-ray showed cardiomegaly. Abdomen pelvis CT shows fracture of the left femoral neck, stone in the left kidney lower pole, possible small seroma in the right inguinal area, sliding hiatal hernia. Hand x-ray was negative. Hip and pelvis x-ray showed fracture of the left femoral neck. Initial labs showed a white blood cell count of 13.3, INR 1.2, bicarb 18, creatinine 1.2, EGFR 46, AST 62, ALT 37, total CK 693, C reactive protein 14.0. UA was obtained and showed cloudy urine appearance, 1+ urine protein 3+ urine glucose, 1+ urine ketones, 2+ urine blood, 11-20 urine RBC, 11-20 urine WBC, yeast present. Urine drug screen was positive for benzodiazepine and amphetamine. STD panel was negative. Patient has a urine culture and a genital culture pending. EKG was done and shown sinus rhythm with left axis deviation with a rate of 84, QTC 462. Last echo was reviewed on 02/27/2024 which shown normal LV systolic function with an estimated EF of 60-65%, grade 1 diastolic dysfunction. Orthopedic surgery was consulted and took patient to the
--- NOTE | 2024-03-07 11:33 | PM.IMPN ---
Progress Note: A&P Assessment and Plan (1) Fracture of neck of left femur: Code(s): S72.002A - Fracture of unspecified part of neck of left femur, initial encounter for closed fracture Status: Acute Assessment and Plan: 03/06/24: Hip and pelvis x-ray showing fracture of the left femoral neck. Abdomen/pelvis CT showed fracture of the left femoral neck Orthopedic surgery consulted Patient had bipolar hip replacement today Continue pain control PT and OT ordered Case management following for outpatient rehab needs Continue Xarelto Continue IV fluids 03/07/24: Patient is postop day 1 from a left bipolar hip replacement Oncology following Continue pain control Continue PT and OT, currently a max assist with therapy Case management following (2) Cognitive impairment: Code(s): R41.89 - Other symptoms and signs involving cognitive functions and awareness Status: Acute Assessment and Plan: 03/06/24: Continue neuro checks 03/07/24: No change (3) Chronic kidney disease: Code(s): N18.9 - Chronic kidney disease, unspecified Status: Acute Assessment and Plan: 03/06/24: Creatinine 1.3 which appears to be the patient's baseline Continue to trend 03/07/24: Creatinine is 1.4 (4) Hypertension: Code(s): I10 - Essential (primary) hypertension Status: Acute Assessment and Plan: 03/06/24: Blood pressure ranging 108/54 to 130/63 Continue amlodipine, hydralazine, and Coreg 03/07/24: No change to current treatment plan (5) Type 2 diabetes mellitus: Code(s): E11.9 - Type 2 diabetes mellitus without complications Status: Acute Assessment and Plan: 03/06/24: Blood sugars ranging 130-183 Hgb A1C 7.3 on 02/23/2024 Accu checks AC/HS Low-dose SSI ordered hypoglycemic protocol in place Diabetic diet ordered Continue Jardiance Hold sitagliptin 03/07/24: No change to current treatment plan Time Spent With Patient Time with patient: 25 - 35 minutes Subjective Date/time seen: 03/07/24 11:33 Interval history: Interval history: This is a 64-year-old female who presented to the hospital on 03/05/2024 with altered mental status. And was noted to have pain with palpation over the left hip. 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 Chest x-ray showed cardiomegaly. Abdomen pelvis CT shows fracture of the left femoral neck, stone in the left kidney lower pole, possible small seroma in the right inguinal area, sliding hiatal hernia. Hand x-ray was negative. Hip and pelvis x-ray showed fracture of the left femoral neck. Initial labs showed a white blood cell count of 13.3, INR 1.2, bicarb 18, creatinine 1.2, EGFR 46, AST 62, ALT 37, total CK 693, C reactive protein 14.0. UA was obtained and showed cloudy urine appearance, 1+ urine protein 3+ urine glucose, 1+ urine ketones, 2+ urine blood, 11-20 urine RBC, 11-20 urine WBC, yeast present. Urine drug screen was positive for benzodiazepine and amphetamine. STD panel was negative. Patient has a urine culture and a genital culture pending. EKG was done and shown sinus rhythm with left axis deviation with a rate of 84, QTC 462. Last echo was reviewed on 02/27/2024 which shown normal LV systolic function with an estimated EF of 60-65%, grade 1 diastolic dysfunction. Orthopedic surgery was consulted and took patient to the OR today for left bipolar hip replacement. Subjective: Labs reviewed. Patient reports any fever, chills, nausea, vomiting, diarrhea, shortness of breath, chest pain. She is currently working with therapy in the room and is using the sera steady for transfers. Currently a full assist with PT and OT. Nursing noted that they removed the Hayes catheter this morning and she has not voided. They did do a bladde
[2024-03-07 11:40] LABS: Glucose Point of Care 202 mg/dl (65-105)
[2024-03-07] MEDS: INSULIN ASPART (*BKC) 100 UNITS/ML SUB-Q ×3 (12:38→21:42)
--- NOTE | 2024-03-07 13:22 | WPDANESPN ---
Anes - Prog Note Post-Op Date/Time: 03/07/24 13:22 Cardiovascular status: normal Respiratory status: normal Airway patency: baseline Mental status: baseline Post-Op hydration status: normal Vital Signs: Last Vital Signs Temp 36.9 C 03/07/24 11:51 Pulse 59 L 03/07/24 11:51 Resp 14 03/07/24 11:51 BP 107/47 L 03/07/24 11:51 Pulse Ox 96 03/07/24 11:51 O2 Del Method Room Air 03/07/24 09:20 O2 Flow Rate 8 03/06/24 14:50 Pain Score (VAS): 08/06 I/O: Intake & Output 03/06/24 03/07/24 03/07/24 23:59 07:59 15:59 Intake Total 410 2050 236 Output Total 200 900 Balance 210 1150 236 Laboratory Tests 03/07/24 05:57 03/07/24 05:56 03/06/24 03/06/24 03/06/24 14:34 16:38 20:18 WBC RBC Hgb Hct MCV MCH MCHC RDW Plt Count MPV Immature Gran % (Auto) Neut % (Auto) Lymph % (Auto) [place] % (Auto) Eos % (Auto) Baso % (Auto) Lymph # (Auto) [place] # (Auto) Eos # (Auto) Baso # (Auto) Abs Immat Gran (auto) Absolute Neuts (auto) Absolute Nucleated RBC Nucleated RBC % Sodium Potassium Chloride Carbon Dioxide Anion Gap BUN Creatinine Estim Creat Clear Calc Estimated GFR Glucose POC Capillary Glucose 130 H 183 H 322 H Calcium 03/07/24 03/07/24 03/07/24 05:56 05:57 07:42 WBC 12.8 H RBC 3.30 L Hgb 9.7 L Hct 29.4 L MCV 89.1 MCH 29.4 MCHC 33.0 RDW 13.8 Plt Count 197 MPV 11.6 H Immature Gran % (Auto) 0.5 Neut % (Auto) 81.1 H Lymph % (Auto) 10.8 L [place] % (Auto) 7.4 Eos % (Auto) 0.0 Baso % (Auto) 0.2 Lymph # (Auto) 1.38 [place] # (Auto) 1.0 H Eos # (Auto) 0.0 Baso # (Auto) 0.0 Abs Immat Gran (auto) 0.07 H Absolute Neuts (auto) 10.4 H Absolute Nucleated RBC 0.000 Nucleated RBC % 0.0 Sodium 134 L Potassium 3.1 L Chloride 102 Carbon Dioxide 22 Anion Gap 10 BUN 24 H Creatinine 1.40 H Estim Creat Clear Calc 35 Estimated GFR 38 L Glucose 152 H POC Capillary Glucose 148 H Calcium 7.7 L 03/07/24 11:23 WBC RBC Hgb Hct MCV MCH MCHC RDW Plt Count MPV Immature Gran % (Auto) Neut % (Auto) Lymph % (Auto) [place] % (Auto) Eos % (Auto) Baso % (Auto) Lymph # (Auto) [place] # (Auto) Eos # (Auto) Baso # (Auto) Abs Immat Gran (auto) Absolute Neuts (auto) Absolute Nucleated RBC Nucleated RBC % Sodium Potassium Chloride Carbon Dioxide Anion Gap BUN Creatinine Estim Creat Clear Calc Estimated GFR Glucose POC Capillary Glucose 202 H Calcium Microbiology 03/05/24 11:43 Urine Catheterized Urine Culture - Final Lizet dubliniensis Post-procedural complaints: none Patient Feedback: Patient satisfied with anesthetic care.
--- NOTE | 2024-03-07 13:30 | PM.PNORT ---
Progress Note: A&P Assessment and Plan (1) Fracture of neck of left femur: Code(s): S72.002A - Fracture of unspecified part of neck of left femur, initial encounter for closed fracture Status: Acute Assessment and Plan: S/P Bipolar for Hip FX. Typical course. Will need rehab. Subjective Subjective Date/Time Seen: 03/07/24 13:30 Post Op day: 1 Principal diagnosis: Hip FX LEFT Review of Systems Musculoskeletal: Musculoskeletal: Reports arthralgias, Reports joint swelling and Reports stiffness Exam Narrative: NVI. Pain controlled Objective Data Vital Signs Vital Signs: Vital Signs - 24 hr 03/06/24 14:21 03/06/24 14:35 03/06/24 14:50 Temperature 98.4 F Pulse Rate 92 94 92 Respiratory Rate 10 L 12 13 Blood Pressure 157/70 H 159/66 H 151/79 H Pulse Oximetry 99 100 100 Oxygen Delivery Simple Face Mask Simple Face Mask Simple Face Mask Oxygen Flow Rate 8 8 8 03/06/24 15:05 03/06/24 15:20 03/06/24 15:35 Temperature 97.4 F L Pulse Rate 93 90 93 Respiratory Rate 12 12 12 Blood Pressure 128/72 130/63 130/67 Pulse Oximetry 95 95 95 Oxygen Delivery Room Air Room Air Room Air Oxygen Flow Rate 03/06/24 14:57 03/06/24 15:57 03/06/24 16:25 Temperature 97.8 F 98.4 F 97.9 F Pulse Rate 95 99 96 Respiratory Rate 14 14 16 Blood Pressure 111/54 L 108/54 L 125/60 Pulse Oximetry 93 93 97 Oxygen Delivery Oxygen Flow Rate 03/06/24 17:25 03/06/24 19:57 03/06/24 23:57 Temperature 98.0 F 98.8 F 98.8 F Pulse Rate 101 H 98 80 Respiratory Rate 14 18 16 Blood Pressure 118/59 L 140/72 102/51 L Pulse Oximetry 95 99 97 Oxygen Delivery Oxygen Flow Rate 03/06/24 20:00 03/06/24 20:00 03/07/24 00:00 Temperature Pulse Rate 95 77 Respiratory Rate Blood Pressure Pulse Oximetry Oxygen Delivery Room Air Oxygen Flow Rate 03/07/24 04:00 03/07/24 03:57 03/07/24 08:28 Temperature 97.6 F Pulse Rate 68 77 75 Respiratory Rate 16 13 Blood Pressure 103/59 L 113/57 L Pulse Oximetry 100 98 Oxygen Delivery Oxygen Flow Rate 03/07/24 09:20 03/07/24 08:00 03/07/24 11:51 Temperature 98.4 F Pulse Rate 75 59 L Respiratory Rate 13 14 Blood Pressure 107/47 L Pulse Oximetry 98 96 Oxygen Delivery Room Air Room Air Oxygen Flow Rate Intake/Output Intake/Output: Intake & Output 03/04/24 03/05/24 03/06/24 03/07/24 23:59 23:59 23:59 23:59 Intake Total 1096 974 6885 Output Total 1850 900 Balance 1000 -1040 1386 Meds/Results Medications: Active Medications Generic Name Dose Route Start Last Admin Trade Name Freq PRN Reason Stop Dose Admin Acetaminophen 650 mg 03/06/24 18:00 03/07/24 12:37 Acetaminophen 325 Mg Tablet PO 650 mg Q6HR JAQUI Administration Hydrocodone Bitart/Acetaminophen 1 tab 03/06/24 14:12 03/06/24 21:26 Hydrocodone/Acetaminophen (*Crx) 5-325 Mg Tablet PO 1 tab Q4H PRN Administration Pain Rated 4-6 Hydrocodone Bitart/Acetaminophen 1 tab 03/06/24 14:12 Hydrocodone/Acetaminophen (*Crx) 7.5-325 Mg Tablet PO Q4H PRN Pain Rated 7-10 Amlodipine Besylate 10 mg 03/06/24 15:50 03/07/24 08:20 Amlodipine Besylate 10 Mg Tablet PO 10 mg DAILY JAQUI Administration Aspirin 81 mg 03/07/24 09:00 03/07/24 08:20 Aspirin 81 Mg Chewable Tablet PO 81 mg DAILY JAQUI Administration Carvedilol 12.5 mg 03/06/24 21:00 03/07/24 08:20 Carvedilol 12.5 Mg Tablet PO 12.5 mg Q12HR JAQUI Administration Clonidine HCl 0.2 mg 03/06/24 21:00 03/07/24 08:20 Clonidine Hcl 0.2 Mg Tablet PO 0.2 mg Q12HR JAQUI Administration Dextrose 12.5 gm 03/05/24 22:09 Dextrose 50% 25 Gm/50 Ml Syringe IV PUSH PRN PRN Hypoglycemia Protocol Empagliflozin 10 mg 03/06/24 15:55 03/07/24 08:20 Empagliflozin 10 Mg Tablet PO 10 mg DAILY JAQUI Administration Fentanyl Citrate 25 mcg 03/06/24 11:31 Fentanyl Citrate Inj (*Crx) 100 Mcg/2 Ml Vial IV
[2024-03-07] MEDS: HYDROmorphone HCL INJ (*CRX) 1 MG/ML SYR 0.5 MG IV PUSH (15:15)
[2024-03-07 16:59] LABS: Glucose Point of Care 264 mg/dl (65-105)
[2024-03-07] MEDS: RIVAROXABAN 10 MG TABLET PO (17:07)
--- NOTE | 2024-03-07 19:42 | PM.EVENT ---
Event Note Event Note Event Note: Cross coverage: Genital culture growing yeast and urine culture grew Lizet dubkiniensis. Patient started on micafungin 100 mg daily.
[2024-03-07] MEDS: HYDROcodone/acetaminophen (*CRX) 5-325 MG TABLET 1 TAB PO (20:21)
[2024-03-07 21:06] LABS: Glucose Point of Care 230 mg/dl (65-105)
[2024-03-08] VITALS (12 sets, daily range): BP systolic 120–148; BP diastolic 56–65; PULSE 59–84; RESP 14–22; TEMP 36.3–38.7; O2SAT 96–100
[2024-03-08] MEDS: ACETAMINOPHEN 325 MG TABLET 650 MG PO ×4 (05:49→23:49)
[2024-03-08 07:37] LABS: Glucose Point of Care 113 mg/dl (65-105)
[2024-03-08] MEDS: carvediloL 12.5 MG TABLET PO ×2 (08:42→20:31)
[2024-03-08] MEDS: MICAFUNGIN SODIUM 100 MG in SODIUM CHLORIDE 0.9% IV 100 ML IVPB (08:43)
[2024-03-08] MEDS: PANTOPRAZOLE 40 MG TABLET PO ×2 (08:43→16:23)
[2024-03-08] MEDS: cloNIDine HCL 0.2 MG TABLET PO ×2 (08:44→20:31)
[2024-03-08] MEDS: EMPAGLIFLOZIN 10 MG TABLET PO (08:44)
[2024-03-08] MEDS: ASPIRIN 81 MG CHEWABLE TABLET PO (08:44)
[2024-03-08] MEDS: amLODIPine BESYLATE 10 MG TABLET PO (08:44)
[2024-03-08] MEDS: hydrALAZINE HCL 25 MG TABLET PO ×3 (08:45→16:23)
[2024-03-08] MEDS: FUROSEMIDE 20 MG TABLET PO (08:48)
[2024-03-08 10:41] LABS: Hematocrit 29.5 % (37.0-47.0); Mean Corpuscular HGB Conc 33.9 g/dl (32-36); Mean Corpuscular Hemoglobin 29.4 pg (26-34); Mean Corpuscular Volume 86.8 fl (80-100); Mean Platelet Volume 11.6 fl (7.4-10.4); Platelet Count Result 218 k/mm3 (150-375); Red Cell Distribution Width 13.7 % (11.5-14.5); White Blood Count 14.2 K/mm3 (4.5-10.0)
[2024-03-08 10:51] LABS: Alanine Aminotransferase 11 U/L (6-35); Albumin Level 2.9 g/dL (3.5-5.1); Alkaline Phosphatase 66 U/L (38-126); Anion Gap 8 mmol/L (4-12); Aspartate Amino Transferase 24 U/L (14-36); Bilirubin,Total 0.3 mg/dL (0.2-1.3); Blood Urea Nitrogen 17 mg/dL (7-17); Carbon Dioxide 25 mmol/L (22-30); Chloride 101 mmol/L (98-107); Estimated CRCL calculation 36 ml/min; Estimated Glomerular Filt Rate 38; Glucose 181 mg/dL (65-110); Potassium 3.1 mmol/L (3.4-5.0); Sodium 134 mmol/L (137-145)
[2024-03-08 11:25] LABS: Glucose Point of Care 187 mg/dl (65-105)
--- NOTE | 2024-03-08 14:05 | P.PNIM_ITS ---
Progress Note: A&P Assessment and Plan (1) Fracture of neck of left femur: Code(s): S72.002A - Fracture of unspecified part of neck of left femur, initial encounter for closed fracture Status: Acute Assessment and Plan: 03/06/24: * Hip and pelvis x-ray showing fracture of the left femoral neck. * Abdomen/pelvis CT showed fracture of the left femoral neck * Orthopedic surgery consulted * Patient had bipolar hip replacement today * Continue pain control * PT and OT ordered * Case management following for outpatient rehab needs * Continue Xarelto * Continue IV fluids 03/07/24: * Patient is postop day 1 from a left bipolar hip replacement * Oncology following * Continue pain control * Continue PT and OT, currently a max assist with therapy * Case management following 03/08/24: * post-op day 2 * site clean dry * Held colace and mirilax today a few episodes of diarrhea today * PT/OT SNF * waiting on auth (2) Cognitive impairment: Code(s): R41.89 - Other symptoms and signs involving cognitive functions and awareness Status: Acute Assessment and Plan: 03/06/24: * Continue neuro checks 03/07/24: * No change (3) Chronic kidney disease: Code(s): N18.9 - Chronic kidney disease, unspecified Status: Acute Assessment and Plan: 03/06/24: * Creatinine 1.3 which appears to be the patient's baseline * Continue to trend 03/07/24: * Creatinine is 1.4 03/08/24 * Unchanged (4) Hypertension: Code(s): I10 - Essential (primary) hypertension Status: Acute Assessment and Plan: 03/06/24: * Blood pressure ranging 108/54 to 130/63 * Continue amlodipine, hydralazine, and Coreg 03/07/24: * No change to current treatment plan (5) Type 2 diabetes mellitus: Code(s): E11.9 - Type 2 diabetes mellitus without complications Status: Acute Assessment and Plan: 03/06/24: * Blood sugars ranging 130-183 * Hgb A1C 7.3 on 02/23/2024 * Accu checks AC/HS * Low-dose SSI ordered * hypoglycemic protocol in place * Diabetic diet ordered * Continue Jardiance * Hold sitagliptin 03/07/24: * No change to current treatment plan Plan Code status: Full code per patient DVT prophylaxis: Xarelto Stress ulcer prophylaxis: Protonix 40 daily PT/OT notes: PT/OT SNF Disposition: Patient continues admission post LT hip surgery waiting for insurance auth for discharge to SNF. Time Spent With Patient Time with patient: 15 - 25 minutes Subjective Date/time seen: 03/08/24 14:05 Interval history: Admission: Medical Chart This is a 64-year-old female who presented to the hospital on 03/05/2024 with altered mental status. And was noted to have pain with palpation over the left hip. 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 Chest x-ray showed
--- NOTE | 2024-03-08 14:05 | PM.IMPN ---
Progress Note: A&P Assessment and Plan (1) Fracture of neck of left femur: Code(s): S72.002A - Fracture of unspecified part of neck of left femur, initial encounter for closed fracture Status: Acute Assessment and Plan: 03/06/24: Hip and pelvis x-ray showing fracture of the left femoral neck. Abdomen/pelvis CT showed fracture of the left femoral neck Orthopedic surgery consulted Patient had bipolar hip replacement today Continue pain control PT and OT ordered Case management following for outpatient rehab needs Continue Xarelto Continue IV fluids 03/07/24: Patient is postop day 1 from a left bipolar hip replacement Oncology following Continue pain control Continue PT and OT, currently a max assist with therapy Case management following 03/08/24: post-op day 2 site clean dry Held colace and mirilax today a few episodes of diarrhea today PT/OT SNF waiting on auth (2) Cognitive impairment: Code(s): R41.89 - Other symptoms and signs involving cognitive functions and awareness Status: Acute Assessment and Plan: 03/06/24: Continue neuro checks 03/07/24: No change (3) Chronic kidney disease: Code(s): N18.9 - Chronic kidney disease, unspecified Status: Acute Assessment and Plan: 03/06/24: Creatinine 1.3 which appears to be the patient's baseline Continue to trend 03/07/24: Creatinine is 1.4 03/08/24 Unchanged (4) Hypertension: Code(s): I10 - Essential (primary) hypertension Status: Acute Assessment and Plan: 03/06/24: Blood pressure ranging 108/54 to 130/63 Continue amlodipine, hydralazine, and Coreg 03/07/24: No change to current treatment plan (5) Type 2 diabetes mellitus: Code(s): E11.9 - Type 2 diabetes mellitus without complications Status: Acute Assessment and Plan: 03/06/24: Blood sugars ranging 130-183 Hgb A1C 7.3 on 02/23/2024 Accu checks AC/HS Low-dose SSI ordered hypoglycemic protocol in place Diabetic diet ordered Continue Jardiance Hold sitagliptin 03/07/24: No change to current treatment plan Plan Code status: Full code per patient DVT prophylaxis: Xarelto Stress ulcer prophylaxis: Protonix 40 daily PT/OT notes: PT/OT SNF Disposition: Patient continues admission post LT hip surgery waiting for insurance auth for discharge to SNF. Time Spent With Patient Time with patient: 15 - 25 minutes Subjective Date/time seen: 03/08/24 14:05 Interval history: Admission: Medical Chart This is a 64-year-old female who presented to the hospital on 03/05/2024 with altered mental status. And was noted to have pain with palpation over the left hip. 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 Chest x-ray showed cardiomegaly. Abdomen pelvis CT shows fracture of the left femoral neck, stone in the left kidney lower pole, possible small seroma in the right inguinal area, sliding hiatal hernia. Hand x-ray was negative. Hip and pelvis x-ray showed fracture of the left femoral neck. Initial labs showed a white blood cell count of 13.3, INR 1.2, bicarb 18, creatinine 1.2, EGFR 46, AST 62, ALT 37, total CK 693, C reactive protein 14.0. UA was obtained and showed cloudy urine appearance, 1+ urine protein 3+ urine glucose, 1+ urine ketones, 2+ urine blood, 11-20 urine RBC, 11-20 urine WBC, yeast present. Urine drug screen was positive for benzodiazepine and amphetamine. STD panel was negative. Patient has a urine culture and a genital culture pending. EKG was done and shown sinus rhythm with left axis deviation with a rate of 84, QTC 462. Last echo was reviewed on 02/27/2024 which shown normal LV systolic function with an estimated EF of 60-65%, grade 1 diastolic dysfuncti
[2024-03-08 15:54] LABS: Glucose Point of Care 267 mg/dl (65-105)
[2024-03-08] MEDS: INSULIN ASPART (*BKC) 100 UNITS/ML SUB-Q (16:10)
[2024-03-08] MEDS: RIVAROXABAN 10 MG TABLET PO (16:23)
[2024-03-08 20:32] LABS: Glucose Point of Care 181 mg/dl (65-105)
[2024-03-09] VITALS (10 sets, daily range): BP systolic 120–138; BP diastolic 53–65; PULSE 64–83; RESP 12–16; TEMP 36.8–37.1; O2SAT 96–100
[2024-03-09] MEDS: ACETAMINOPHEN 325 MG TABLET 650 MG PO ×4 (05:54→23:23)
--- NOTE | 2024-03-09 06:05 | PC.NURSE ---
This RN called provider to notify of 5 beat run of Vtach. Provider did not answer on vocera or cell. Pt has no symptoms at the time of Vtach. Will continue care.
--- NOTE | 2024-03-09 06:44 | PM.PNORT ---
Progress Note: A&P Assessment and Plan (1) Fracture of neck of left femur: Code(s): S72.002A - Fracture of unspecified part of neck of left femur, initial encounter for closed fracture Status: Acute Assessment and Plan: Slow progress. Will need rehab. Subjective Subjective Date/Time Seen: 03/09/24 06:44 Post Op day: 3 Principal diagnosis: Hip Fracture Left Review of Systems Musculoskeletal: Musculoskeletal: Reports arthralgias, Reports joint swelling and Reports stiffness Exam Narrative: NVI. Pain controlled Objective Data Vital Signs Vital Signs: Vital Signs - 24 hr 03/08/24 08:42 03/08/24 09:50 03/08/24 08:02 Temperature Pulse Rate 72 72 70 Respiratory Rate 20 Blood Pressure Pulse Oximetry 96 Oxygen Delivery Room Air 03/08/24 12:02 03/08/24 14:00 03/08/24 16:02 Temperature 97.3 F L Pulse Rate 69 76 72 Respiratory Rate 14 Blood Pressure 120/56 L Pulse Oximetry 100 Oxygen Delivery 03/08/24 20:31 03/08/24 20:53 03/08/24 20:00 Temperature 99.1 F Pulse Rate 81 72 74 Respiratory Rate 22 H Blood Pressure 145/65 H Pulse Oximetry 98 Oxygen Delivery 03/09/24 00:00 03/09/24 04:00 03/09/24 05:49 Temperature 98.3 F Pulse Rate 64 65 65 Respiratory Rate 12 Blood Pressure 138/62 Pulse Oximetry 96 Oxygen Delivery Intake/Output Intake/Output: Intake & Output 03/06/24 03/07/24 03/08/24 03/09/24 23:59 23:59 23:59 23:59 Intake Total 810 2640 2944 400 Output Total 4123 653 5917 2050 Balance -1040 1369 -710 -1284 Meds/Results Medications: Active Medications Generic Name Dose Route Start Last Admin Trade Name Freq PRN Reason Stop Dose Admin Acetaminophen 650 mg 03/06/24 18:00 03/09/24 05:54 Acetaminophen 325 Mg Tablet PO 650 mg Q6HR JAQUI Administration Hydrocodone Bitart/Acetaminophen 1 tab 03/06/24 14:12 03/07/24 20:21 Hydrocodone/Acetaminophen (*Crx) 5-325 Mg Tablet PO 1 tab Q4H PRN Administration Pain Rated 4-6 Hydrocodone Bitart/Acetaminophen 1 tab 03/06/24 14:12 Hydrocodone/Acetaminophen (*Crx) 7.5-325 Mg Tablet PO Q4H PRN Pain Rated 7-10 Amlodipine Besylate 10 mg 03/06/24 15:50 03/08/24 08:44 Amlodipine Besylate 10 Mg Tablet PO 10 mg DAILY JAQUI Administration Aspirin 81 mg 03/07/24 09:00 03/08/24 08:44 Aspirin 81 Mg Chewable Tablet PO 81 mg DAILY JAQUI Administration Carvedilol 12.5 mg 03/06/24 21:00 03/08/24 20:31 Carvedilol 12.5 Mg Tablet PO 12.5 mg Q12HR JAQUI Administration Clonidine HCl 0.2 mg 03/06/24 21:00 03/08/24 20:31 Clonidine Hcl 0.2 Mg Tablet PO 0.2 mg Q12HR JAQUI Administration Dextrose 12.5 gm 03/05/24 22:09 Dextrose 50% 25 Gm/50 Ml Syringe IV PUSH PRN PRN Hypoglycemia Protocol Empagliflozin 10 mg 03/06/24 15:55 03/08/24 08:44 Empagliflozin 10 Mg Tablet PO 10 mg DAILY JAQUI Administration Fentanyl Citrate 25 mcg 03/06/24 11:31 Fentanyl Citrate Inj (*Crx) 100 Mcg/2 Ml Vial IV PUSH Q2M PRN Pain Fluconazole 100 mg 03/09/24 09:00 Fluconazole 100 Mg Tablet PO 03/22/24 09:01 QAM JAQUI Furosemide 20 mg 03/06/24 15:55 03/08/24 08:48 Furosemide 20 Mg Tablet PO 20 mg DAILY JAQUI Administration Glucagon 1 mg 03/05/24 22:09 Glucagon For Inj 1 Mg Vial IM PRN PRN Hypoglycemia Protocol Glucose 15 gm 03/05/24 22:09 Glucose Oral Gel 15 Gm Of Glucse In 37.5 Gm Tube PO PRN PRN Hypoglycemia Protocol Hydralazine HCl 25 mg 03/06/24 17:00 03/08/24 16:23 Hydralazine Hcl 25 Mg Tablet PO 25 mg TID JAQUI Administration Hydromorphone HCl 1 mg 03/06/24 14:12 Hydromorphone Hcl Inj (*Crx) 1 Mg/Ml Syr IV PUSH Q2H PRN Breakthrough Pain Rated 7-10 or NPO Hydromorphone HCl 0.5 mg 03/06/24 14:12 03/07/24 15:15 Hydromorphone Hcl Inj (*Crx) 1 Mg/Ml Syr IV PUSH 0.5 mg Q2H PRN Administration
[2024-03-09 07:24] LABS: Hematocrit 28.3 % (37.0-47.0); Hemoglobin 9.6 g/dL (12.0-15.0); Mean Corpuscular HGB Conc 33.9 g/dl (32-36); Mean Corpuscular Hemoglobin 29.5 pg (26-34); Mean Corpuscular Volume 87.1 fl (80-100); Platelet Count Result 207 k/mm3 (150-375); Red Blood Count 3.25 M/mm3 (4.2-5.4); Red Cell Distribution Width 13.5 % (11.5-14.5); White Blood Count 10.3 K/mm3 (4.5-10.0)
[2024-03-09 08:33] LABS: Glucose Point of Care 144 mg/dl (65-105)
[2024-03-09 08:37] LABS: Alanine Aminotransferase 9 U/L (6-35); Albumin Level 2.8 g/dL (3.5-5.1); Alkaline Phosphatase 67 U/L (38-126); Anion Gap 6 mmol/L (4-12); Aspartate Amino Transferase 24 U/L (14-36); Bilirubin,Total 0.4 mg/dL (0.2-1.3); Blood Urea Nitrogen 14 mg/dL (7-17); Calcium 7.9 mg/dL (8.4-10.2); Carbon Dioxide 30 mmol/L (22-30); Chloride 99 mmol/L (98-107); Estimated CRCL calculation 41 ml/min; Estimated Glomerular Filt Rate 46; Glucose 152 mg/dL (65-110); Potassium 2.8 mmol/L (3.4-5.0); Sodium 135 mmol/L (137-145)
[2024-03-09] MEDS: cloNIDine HCL 0.2 MG TABLET PO ×2 (10:31→20:00)
[2024-03-09] MEDS: FUROSEMIDE 20 MG TABLET PO (10:31)
[2024-03-09] MEDS: SENNA/DOCUSATE SODIUM TABLET 2 TAB PO ×2 (10:31→16:45)
[2024-03-09] MEDS: POTASSIUM CHLORIDE 20 MEQ ER TABLET 40 MEQ PO (10:31)
[2024-03-09] MEDS: FLUCONAZOLE 100 MG TABLET PO (10:32)
[2024-03-09] MEDS: amLODIPine BESYLATE 10 MG TABLET PO (10:32)
[2024-03-09] MEDS: ASPIRIN 81 MG CHEWABLE TABLET PO (10:32)
[2024-03-09] MEDS: carvediloL 12.5 MG TABLET PO ×2 (10:32→20:00)
[2024-03-09] MEDS: EMPAGLIFLOZIN 10 MG TABLET PO (10:32)
[2024-03-09] MEDS: PANTOPRAZOLE 40 MG TABLET PO ×2 (10:32→16:46)
[2024-03-09] MEDS: hydrALAZINE HCL 25 MG TABLET PO ×3 (10:32→16:45)
[2024-03-09] MEDS: POTASSIUM CHLORIDE INJ 40 MEQ in SODIUM CHLORIDE 0.9% IV 500 ML 130 MEQ IVPB (10:44)
[2024-03-09] MEDS: SODIUM CHLORIDE 0.9% IV 500 ML 75 ML (10:56)
[2024-03-09 11:18] LABS: Glucose Point of Care 250 mg/dl (65-105)
--- NOTE | 2024-03-09 12:08 | P.PNIM_ITS ---
Progress Note: A&P Assessment and Plan (1) Fracture of neck of left femur: Code(s): S72.002A - Fracture of unspecified part of neck of left femur, initial encounter for closed fracture Status: Acute Assessment and Plan: 03/06/24: * Hip and pelvis x-ray showing fracture of the left femoral neck. * Abdomen/pelvis CT showed fracture of the left femoral neck * Orthopedic surgery consulted * Patient had bipolar hip replacement today * Continue pain control * PT and OT ordered * Case management following for outpatient rehab needs * Continue Xarelto * Continue IV fluids 03/07/24: * Patient is postop day 1 from a left bipolar hip replacement * Oncology following * Continue pain control * Continue PT and OT, currently a max assist with therapy * Case management following 03/08/24: * post-op day 2 * site clean dry * Held colace and mirilax today a few episodes of diarrhea today * PT/OT SNF * waiting on auth 03/09/24 * Post-op day 3 * Site check clean and dry * Waiting on rehab auth (2) Cognitive impairment: Code(s): R41.89 - Other symptoms and signs involving cognitive functions and awareness Status: Acute Assessment and Plan: 03/06/24: * Continue neuro checks 03/07/24: * No change (3) Chronic kidney disease: Code(s): N18.9 - Chronic kidney disease, unspecified Status: Acute Assessment and Plan: 03/06/24: * Creatinine 1.3 which appears to be the patient's baseline * Continue to trend 03/07/24: * Creatinine is 1.4 03/08/24 * Unchanged (4) Hypertension: Code(s): I10 - Essential (primary) hypertension Status: Acute Assessment and Plan: 03/06/24: * Blood pressure ranging 108/54 to 130/63 * Continue amlodipine, hydralazine, and Coreg 03/07/24: * No change to current treatment plan (5) Type 2 diabetes mellitus: Code(s): E11.9 - Type 2 diabetes mellitus without complications Status: Acute Assessment and Plan: 03/06/24: * Blood sugars ranging 130-183 * Hgb A1C 7.3 on 02/23/2024 * Accu checks AC/HS * Low-dose SSI ordered * hypoglycemic protocol in place * Diabetic diet ordered * Continue Jardiance * Hold sitagliptin 03/07/24: * No change to current treatment plan (6) Hypokalemia: Code(s): E87.6 - Hypokalemia Status: Acute Assessment and Plan: * K+ 2.8 * Likely secondary to diarrhea * held miralax * replenished with 80 meq Plan Code status: Full code per patient DVT prophylaxis: Xarelto Stress ulcer prophylaxis: Protonix 40 daily PT/OT notes: PT/OT SNF Disposition: Patient continues admission post LT hip surgery waiting for insurance auth for discharge to SNF. Time Spent With Patient Time with patient: 15 - 25 minutes Subjective Date/time seen: 03/09/24 12:08 Interval history: Admission: Medical Chart This is a 64-year-old female who presented to the hospital on 03/05/2024 with al
--- NOTE | 2024-03-09 12:08 | PM.IMPN ---
Progress Note: A&P Assessment and Plan (1) Fracture of neck of left femur: Code(s): S72.002A - Fracture of unspecified part of neck of left femur, initial encounter for closed fracture Status: Acute Assessment and Plan: 03/06/24: Hip and pelvis x-ray showing fracture of the left femoral neck. Abdomen/pelvis CT showed fracture of the left femoral neck Orthopedic surgery consulted Patient had bipolar hip replacement today Continue pain control PT and OT ordered Case management following for outpatient rehab needs Continue Xarelto Continue IV fluids 03/07/24: Patient is postop day 1 from a left bipolar hip replacement Oncology following Continue pain control Continue PT and OT, currently a max assist with therapy Case management following 03/08/24: post-op day 2 site clean dry Held colace and mirilax today a few episodes of diarrhea today PT/OT SNF waiting on auth 03/09/24 Post-op day 3 Site check clean and dry Waiting on rehab auth (2) Cognitive impairment: Code(s): R41.89 - Other symptoms and signs involving cognitive functions and awareness Status: Acute Assessment and Plan: 03/06/24: Continue neuro checks 03/07/24: No change (3) Chronic kidney disease: Code(s): N18.9 - Chronic kidney disease, unspecified Status: Acute Assessment and Plan: 03/06/24: Creatinine 1.3 which appears to be the patient's baseline Continue to trend 03/07/24: Creatinine is 1.4 03/08/24 Unchanged (4) Hypertension: Code(s): I10 - Essential (primary) hypertension Status: Acute Assessment and Plan: 03/06/24: Blood pressure ranging 108/54 to 130/63 Continue amlodipine, hydralazine, and Coreg 03/07/24: No change to current treatment plan (5) Type 2 diabetes mellitus: Code(s): E11.9 - Type 2 diabetes mellitus without complications Status: Acute Assessment and Plan: 03/06/24: Blood sugars ranging 130-183 Hgb A1C 7.3 on 02/23/2024 Accu checks AC/HS Low-dose SSI ordered hypoglycemic protocol in place Diabetic diet ordered Continue Jardiance Hold sitagliptin 03/07/24: No change to current treatment plan (6) Hypokalemia: Code(s): E87.6 - Hypokalemia Status: Acute Assessment and Plan: K+ 2.8 Likely secondary to diarrhea held miralax replenished with 80 meq Plan Code status: Full code per patient DVT prophylaxis: Xarelto Stress ulcer prophylaxis: Protonix 40 daily PT/OT notes: PT/OT SNF Disposition: Patient continues admission post LT hip surgery waiting for insurance auth for discharge to SNF. Time Spent With Patient Time with patient: 15 - 25 minutes Subjective Date/time seen: 03/09/24 12:08 Interval history: Admission: Medical Chart This is a 64-year-old female who presented to the hospital on 03/05/2024 with altered mental status. And was noted to have pain with palpation over the left hip. 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 Chest x-ray showed cardiomegaly. Abdomen pelvis CT shows fracture of the left femoral neck, stone in the left kidney lower pole, possible small seroma in the right inguinal area, sliding hiatal hernia. Hand x-ray was negative. Hip and pelvis x-ray showed fracture of the left femoral neck. Initial labs showed a white blood cell count of 13.3, INR 1.2, bicarb 18, creatinine 1.2, EGFR 46, AST 62, ALT 37, total CK 693, C reactive protein 14.0. UA was obtained and showed cloudy urine appearance, 1+ urine protein 3+ urine glucose, 1+ urine ketones, 2+ urine blood, 11-20 urine RBC, 11-20 urine WBC, yeast present. Urine drug screen was positive for benzodiazepine and amphetamine. STD panel was negative. Patient has a urine cul
[2024-03-09] MEDS: INSULIN ASPART (*BKC) 100 UNITS/ML SUB-Q ×2 (13:10→19:58)
--- NOTE | 2024-03-09 15:32 | PC.NURSE ---
RN spoke with Cece and provided her with updates. Cece had no further questions.
[2024-03-09 16:07] LABS: Glucose Point of Care 185 mg/dl (65-105)
[2024-03-09] MEDS: RIVAROXABAN 10 MG TABLET PO (16:46)
[2024-03-09 19:30] LABS: Glucose Point of Care 235 mg/dl (65-105)
[2024-03-10] VITALS (14 sets, daily range): BP systolic 115–169; BP diastolic 59–84; PULSE 62–85; RESP 16–18; TEMP 36.3–37.3; O2SAT 96–100; BMI 10.0
[2024-03-10] MEDS: ACETAMINOPHEN 325 MG TABLET 650 MG PO ×3 (06:46→18:01)
[2024-03-10 07:06] LABS: Hematocrit 32.2 % (37.0-47.0); Hemoglobin 10.5 g/dL (12.0-15.0); Mean Corpuscular HGB Conc 32.6 g/dl (32-36); Mean Corpuscular Hemoglobin 29.2 pg (26-34); Mean Corpuscular Volume 89.7 fl (80-100); Mean Platelet Volume 11.9 fl (7.4-10.4); Platelet Count Result 255 k/mm3 (150-375); Red Blood Count 3.59 M/mm3 (4.2-5.4); Red Cell Distribution Width 13.8 % (11.5-14.5); White Blood Count 11.8 K/mm3 (4.5-10.0)
[2024-03-10 07:54] LABS: Glucose Point of Care 143 mg/dl (65-105)
[2024-03-10] MEDS: cloNIDine HCL 0.2 MG TABLET PO ×2 (08:35→20:21)
[2024-03-10] MEDS: EMPAGLIFLOZIN 10 MG TABLET PO (08:35)
[2024-03-10] MEDS: FUROSEMIDE 20 MG TABLET PO (08:36)
[2024-03-10] MEDS: carvediloL 12.5 MG TABLET PO ×2 (08:36→20:20)
[2024-03-10] MEDS: SENNA/DOCUSATE SODIUM TABLET 2 TAB PO ×2 (08:36→18:00)
[2024-03-10] MEDS: FLUCONAZOLE 100 MG TABLET PO (08:36)
[2024-03-10] MEDS: ASPIRIN 81 MG CHEWABLE TABLET PO (08:37)
[2024-03-10] MEDS: hydrALAZINE HCL 25 MG TABLET PO ×3 (08:37→18:00)
[2024-03-10] MEDS: amLODIPine BESYLATE 10 MG TABLET PO (08:37)
[2024-03-10] MEDS: PANTOPRAZOLE 40 MG TABLET PO ×2 (08:37→18:00)
[2024-03-10 09:39] LABS: Alanine Aminotransferase 8 U/L (6-35); Alkaline Phosphatase 77 U/L (38-126); Anion Gap 8 mmol/L (4-12); Aspartate Amino Transferase 19 U/L (14-36); Bilirubin,Total 0.5 mg/dL (0.2-1.3); Blood Urea Nitrogen 13 mg/dL (7-17); Calcium 8.4 mg/dL (8.4-10.2); Carbon Dioxide 26 mmol/L (22-30); Chloride 101 mmol/L (98-107); Estimated CRCL calculation 41 ml/min; Estimated Glomerular Filt Rate 46; Glucose 171 mg/dL (65-110); Potassium 3.8 mmol/L (3.4-5.0); Sodium 135 mmol/L (137-145)
--- NOTE | 2024-03-10 10:18 | P.PNIM_ITS ---
Progress Note: A&P Assessment and Plan (1) Fracture of neck of left femur: Code(s): S72.002A - Fracture of unspecified part of neck of left femur, initial encounter for closed fracture Status: Acute Assessment and Plan: 03/06/24: * Hip and pelvis x-ray showing fracture of the left femoral neck. * Abdomen/pelvis CT showed fracture of the left femoral neck * Orthopedic surgery consulted * Patient had bipolar hip replacement today * Continue pain control * PT and OT ordered * Case management following for outpatient rehab needs * Continue Xarelto * Continue IV fluids 03/07/24: * Patient is postop day 1 from a left bipolar hip replacement * Oncology following * Continue pain control * Continue PT and OT, currently a max assist with therapy * Case management following 03/08/24: * post-op day 2 * site clean dry * Held colace and mirilax today a few episodes of diarrhea today * PT/OT SNF * waiting on auth 03/09/24 * Post-op day 3 * Site check clean and dry * Waiting on rehab auth (2) Cognitive impairment: Code(s): R41.89 - Other symptoms and signs involving cognitive functions and awareness Status: Acute Assessment and Plan: 03/06/24: * Continue neuro checks 03/07/24: * No change (3) Chronic kidney disease: Code(s): N18.9 - Chronic kidney disease, unspecified Status: Acute Assessment and Plan: 03/06/24: * Creatinine 1.3 which appears to be the patient's baseline * Continue to trend 03/07/24: * Creatinine is 1.4 03/08/24 * Unchanged (4) Hypertension: Code(s): I10 - Essential (primary) hypertension Status: Acute Assessment and Plan: 03/06/24: * Blood pressure ranging 108/54 to 130/63 * Continue amlodipine, hydralazine, and Coreg 03/07/24: * No change to current treatment plan 03/10/24: * hypertensive x 1 episode * monitor and adjust BP medication if continues to run high (5) Type 2 diabetes mellitus: Code(s): E11.9 - Type 2 diabetes mellitus without complications Status: Acute Assessment and Plan: 03/06/24: * Blood sugars ranging 130-183 * Hgb A1C 7.3 on 02/23/2024 * Accu checks AC/HS * Low-dose SSI ordered * hypoglycemic protocol in place * Diabetic diet ordered * Continue Jardiance * Hold sitagliptin 03/07/24: * No change to current treatment plan (6) Hypokalemia: Code(s): E87.6 - Hypokalemia Status: Acute Assessment and Plan: * K+ 2.8 * Likely secondary to diarrhea * held miralax * replenished with 80 meq 03/10/24: * RESOLVED (7) Yeast UTI: Code(s): B37.49 - Other urogenital candidiasis Status: Acute Assessment and Plan: * UTI/Vaginal * Diflucan IV x 14 days transition to PO at discharge (8) Urinary retention: Code(s): R33.9 - Retention of urine, unspecified Status: Acute Assessment an
--- NOTE | 2024-03-10 10:18 | PM.IMPN ---
Progress Note: A&P Assessment and Plan (1) Fracture of neck of left femur: Code(s): S72.002A - Fracture of unspecified part of neck of left femur, initial encounter for closed fracture Status: Acute Assessment and Plan: 03/06/24: Hip and pelvis x-ray showing fracture of the left femoral neck. Abdomen/pelvis CT showed fracture of the left femoral neck Orthopedic surgery consulted Patient had bipolar hip replacement today Continue pain control PT and OT ordered Case management following for outpatient rehab needs Continue Xarelto Continue IV fluids 03/07/24: Patient is postop day 1 from a left bipolar hip replacement Oncology following Continue pain control Continue PT and OT, currently a max assist with therapy Case management following 03/08/24: post-op day 2 site clean dry Held colace and mirilax today a few episodes of diarrhea today PT/OT SNF waiting on auth 03/09/24 Post-op day 3 Site check clean and dry Waiting on rehab auth (2) Cognitive impairment: Code(s): R41.89 - Other symptoms and signs involving cognitive functions and awareness Status: Acute Assessment and Plan: 03/06/24: Continue neuro checks 03/07/24: No change (3) Chronic kidney disease: Code(s): N18.9 - Chronic kidney disease, unspecified Status: Acute Assessment and Plan: 03/06/24: Creatinine 1.3 which appears to be the patient's baseline Continue to trend 03/07/24: Creatinine is 1.4 03/08/24 Unchanged (4) Hypertension: Code(s): I10 - Essential (primary) hypertension Status: Acute Assessment and Plan: 03/06/24: Blood pressure ranging 108/54 to 130/63 Continue amlodipine, hydralazine, and Coreg 03/07/24: No change to current treatment plan 03/10/24: hypertensive x 1 episode monitor and adjust BP medication if continues to run high (5) Type 2 diabetes mellitus: Code(s): E11.9 - Type 2 diabetes mellitus without complications Status: Acute Assessment and Plan: 03/06/24: Blood sugars ranging 130-183 Hgb A1C 7.3 on 02/23/2024 Accu checks AC/HS Low-dose SSI ordered hypoglycemic protocol in place Diabetic diet ordered Continue Jardiance Hold sitagliptin 03/07/24: No change to current treatment plan (6) Hypokalemia: Code(s): E87.6 - Hypokalemia Status: Acute Assessment and Plan: K+ 2.8 Likely secondary to diarrhea held miralax replenished with 80 meq 03/10/24: RESOLVED (7) Yeast UTI: Code(s): B37.49 - Other urogenital candidiasis Status: Acute Assessment and Plan: UTI/Vaginal Diflucan IV x 14 days transition to PO at discharge (8) Urinary retention: Code(s): R33.9 - Retention of urine, unspecified Status: Acute Assessment and Plan: Bladder trial-remove padilla if no post void 6 hours bladder scan replace if >350 in bladder start flomax if she continues to have retention Plan Code status: Full code per patient DVT prophylaxis: Xarelto Stress ulcer prophylaxis: Protonix 40 daily PT/OT notes: PT/OT SNF Disposition: Patient continues admission post LT hip surgery waiting for insurance auth for discharge to SNF. Time Spent With Patient Time with patient: 15 - 25 minutes Subjective Date/time seen: 03/10/24 10:18 Interval history: Admission: Medical Chart This is a 64-year-old female who presented to the hospital on 03/05/2024 with altered mental status. And was noted to have pain with palpation over the left hip. 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 Chest x-ray showed cardiomegaly. Abdomen pelvis CT shows fracture of the left femoral neck, stone in the left kidney lower pole, poss
[2024-03-10 11:48] LABS: Glucose Point of Care 229 mg/dl (65-105)
[2024-03-10] MEDS: INSULIN ASPART (*BKC) 100 UNITS/ML SUB-Q ×3 (12:42→20:25)
[2024-03-10 16:44] LABS: Glucose Point of Care 208 mg/dl (65-105)
[2024-03-10] MEDS: RIVAROXABAN 10 MG TABLET PO (18:00)
--- NOTE | 2024-03-10 18:50 | PC.NURSE ---
1630 raymon-care provided. bmx1, pasty brown. Dressing to left hip changed, joe in place, incision area pink and tender to touch.
--- NOTE | 2024-03-10 18:53 | PC.NURSE ---
1830 raymon-care provided. bmx1, pasty brown. Dressing to left hip changed, joe in place, incision area pink and tender to touch. Turning and repositioning provided. Patient moaned throughout care but stop once completed.
[2024-03-10 20:14] LABS: Glucose Point of Care 212 mg/dl (65-105)
[2024-03-10] MEDS: HYDROcodone/acetaminophen (*CRX) 5-325 MG TABLET 1 TAB PO (20:21)
[2024-03-11] VITALS (10 sets, daily range): BP systolic 134–220; BP diastolic 56–104; PULSE 72–99; RESP 14–22; TEMP 36.5–38.1; O2SAT 96–99
[2024-03-11] MEDS: ACETAMINOPHEN 325 MG TABLET 650 MG PO ×4 (06:36→23:00)
[2024-03-11 06:44] LABS: Hematocrit 29.9 % (37.0-47.0); Hemoglobin 9.9 g/dL (12.0-15.0); Mean Corpuscular HGB Conc 33.1 g/dl (32-36); Mean Corpuscular Hemoglobin 29.3 pg (26-34); Mean Corpuscular Volume 88.5 fl (80-100); Mean Platelet Volume 11.3 fl (7.4-10.4); Platelet Count Result 243 k/mm3 (150-375); Red Blood Count 3.38 M/mm3 (4.2-5.4); Red Cell Distribution Width 13.8 % (11.5-14.5); White Blood Count 10.6 K/mm3 (4.5-10.0)
[2024-03-11] MEDS: HYDROcodone/acetaminophen (*CRX) 5-325 MG TABLET 1 TAB PO (06:55)
[2024-03-11 06:57] LABS: Alanine Aminotransferase 10 U/L (6-35); Alkaline Phosphatase 69 U/L (38-126); Anion Gap 8 mmol/L (4-12); Aspartate Amino Transferase 17 U/L (14-36); Bilirubin,Total 0.5 mg/dL (0.2-1.3); Blood Urea Nitrogen 16 mg/dL (7-17); Calcium 8.4 mg/dL (8.4-10.2); Carbon Dioxide 27 mmol/L (22-30); Chloride 98 mmol/L (98-107); Estimated CRCL calculation 38 ml/min; Estimated Glomerular Filt Rate 42; Glucose 158 mg/dL (65-110); Sodium 133 mmol/L (137-145)
[2024-03-11 08:07] LABS: Glucose Point of Care 159 mg/dl (65-105)
[2024-03-11] MEDS: PANTOPRAZOLE 40 MG TABLET PO ×2 (08:51→15:33)
[2024-03-11] MEDS: carvediloL 12.5 MG TABLET PO ×2 (08:51→20:31)
[2024-03-11] MEDS: amLODIPine BESYLATE 10 MG TABLET PO (08:51)
[2024-03-11] MEDS: EMPAGLIFLOZIN 10 MG TABLET PO (08:51)
[2024-03-11] MEDS: hydrALAZINE HCL 25 MG TABLET PO ×3 (08:51→15:36)
[2024-03-11] MEDS: FUROSEMIDE 20 MG TABLET PO (08:51)
[2024-03-11] MEDS: ASPIRIN 81 MG CHEWABLE TABLET PO (08:51)
[2024-03-11] MEDS: FLUCONAZOLE 100 MG TABLET PO (08:52)
[2024-03-11] MEDS: cloNIDine HCL 0.2 MG TABLET PO ×2 (08:52→20:30)
[2024-03-11 11:47] LABS: Glucose Point of Care 353 mg/dl (65-105)
[2024-03-11] MEDS: INSULIN ASPART (*BKC) 100 UNITS/ML SUB-Q ×2 (12:36→16:57)
[2024-03-11] MEDS: RIVAROXABAN 10 MG TABLET PO (15:33)
[2024-03-11] MEDS: HYDROcodone/acetaminophen (*CRX) 7.5-325 MG TABLET 1 TAB PO (15:35)
[2024-03-11 16:37] LABS: Glucose Point of Care 264 mg/dl (65-105)
[2024-03-11 20:29] LABS: Glucose Point of Care 186 mg/dl (65-105)
[2024-03-11] MEDS: IBUPROFEN IV 800 MG/200 ML 800 MG/200 ML BAG 400 MG IVPB (20:29)
[2024-03-12] VITALS (7 sets, daily range): BP systolic 116–125; BP diastolic 59–63; PULSE 56–88; RESP 18–20; TEMP 36.2–36.6; O2SAT 100
[2024-03-12] MEDS: ACETAMINOPHEN 325 MG TABLET 650 MG PO ×2 (05:23→13:57)
[2024-03-12 07:03] LABS: Hematocrit 31.3 % (37.0-47.0); Hemoglobin 10.1 g/dL (12.0-15.0); Mean Corpuscular HGB Conc 32.3 g/dl (32-36); Mean Corpuscular Hemoglobin 28.7 pg (26-34); Mean Corpuscular Volume 88.9 fl (80-100); Platelet Count Result 267 k/mm3 (150-375); Red Blood Count 3.52 M/mm3 (4.2-5.4); Red Cell Distribution Width 13.9 % (11.5-14.5)
[2024-03-12 07:21] LABS: Alanine Aminotransferase 12 U/L (6-35); Albumin Level 2.9 g/dL (3.5-5.1); Alkaline Phosphatase 75 U/L (38-126); Anion Gap 8 mmol/L (4-12); Aspartate Amino Transferase 21 U/L (14-36); Bilirubin,Total 0.4 mg/dL (0.2-1.3); Blood Urea Nitrogen 20 mg/dL (7-17); Calcium 8.7 mg/dL (8.4-10.2); Carbon Dioxide 27 mmol/L (22-30); Chloride 99 mmol/L (98-107); Estimated CRCL calculation 38 ml/min; Estimated Glomerular Filt Rate 42; Glucose 181 mg/dL (65-110); Potassium 3.8 mmol/L (3.4-5.0); Sodium 134 mmol/L (137-145)
[2024-03-12 07:34] LABS: Glucose Point of Care 174 mg/dl (65-105)
--- NOTE | 2024-03-12 09:13 | P.DS_ITS ---
DS: Admitting Diagnosis Discharge Date 03/12/2024 Admitting Diagnosis closed left femur fracture DS: Discharge Diagnosis Discharge Diagnosis (1) Fracture of neck of left femur: Code(s): S72.002A - Fracture of unspecified part of neck of left femur, initial encounter for closed fracture Status: Acute Assessment and Plan: 03/06/24: * Hip and pelvis x-ray showing fracture of the left femoral neck. * Abdomen/pelvis CT showed fracture of the left femoral neck * Orthopedic surgery consulted * Patient had bipolar hip replacement today * Continue pain control * PT and OT ordered * Case management following for outpatient rehab needs * Continue Xarelto * Continue IV fluids 03/07/24: * Patient is postop day 1 from a left bipolar hip replacement * Oncology following * Continue pain control * Continue PT and OT, currently a max assist with therapy * Case management following 03/08/24: * post-op day 2 * site clean dry * Held colace and mirilax today a few episodes of diarrhea today * PT/OT SNF * waiting on auth 03/09/24 * Post-op day 3 * Site check clean and dry * Waiting on rehab auth (2) Cognitive impairment: Code(s): R41.89 - Other symptoms and signs involving cognitive functions and awareness Status: Acute Assessment and Plan: 03/06/24: * Continue neuro checks 03/07/24: * No change (3) Chronic kidney disease: Code(s): N18.9 - Chronic kidney disease, unspecified Status: Acute Assessment and Plan: 03/06/24: * Creatinine 1.3 which appears to be the patient's baseline * Continue to trend 03/07/24: * Creatinine is 1.4 03/08/24 * Unchanged (4) Hypertension: Code(s): I10 - Essential (primary) hypertension Status: Acute Assessment and Plan: 03/06/24: * Blood pressure ranging 108/54 to 130/63 * Continue amlodipine, hydralazine, and Coreg 03/07/24: * No change to current treatment plan 03/10/24: * hypertensive x 1 episode * monitor and adjust BP medication if continues to run high (5) Type 2 diabetes mellitus: Code(s): E11.9 - Type 2 diabetes mellitus without complications Status: Acute Assessment and Plan: 03/06/24: * Blood sugars ranging 130-183 * Hgb A1C 7.3 on 02/23/2024 * Accu checks AC/HS * Low-dose SSI ordered * hypoglycemic protocol in place * Diabetic diet ordered * Continue Jardiance * Hold sitagliptin 03/07/24: * No change to current treatment plan (6) Hypokalemia: Code(s): E87.6 - Hypokalemia Status: Acute Assessment and Plan: * K+ 2.8 * Likely secondary to diarrhea * held miralax * replenished with 80 meq 03/10/24: * RESOLVED (7) Yeast UTI: Code(s): B37.49 - Other urogenital candidiasis Status: Acute Assessment and Plan: * UTI/Vaginal * Diflucan IV x 14 days transition to PO at discharge
--- NOTE | 2024-03-12 09:13 | PM.DS ---
DS: Admitting Diagnosis Discharge Date 03/12/2024 Admitting Diagnosis closed left femur fracture DS: Discharge Diagnosis Discharge Diagnosis (1) Fracture of neck of left femur: Code(s): S72.002A - Fracture of unspecified part of neck of left femur, initial encounter for closed fracture Status: Acute Assessment and Plan: 03/06/24: Hip and pelvis x-ray showing fracture of the left femoral neck. Abdomen/pelvis CT showed fracture of the left femoral neck Orthopedic surgery consulted Patient had bipolar hip replacement today Continue pain control PT and OT ordered Case management following for outpatient rehab needs Continue Xarelto Continue IV fluids 03/07/24: Patient is postop day 1 from a left bipolar hip replacement Oncology following Continue pain control Continue PT and OT, currently a max assist with therapy Case management following 03/08/24: post-op day 2 site clean dry Held colace and mirilax today a few episodes of diarrhea today PT/OT SNF waiting on auth 03/09/24 Post-op day 3 Site check clean and dry Waiting on rehab auth (2) Cognitive impairment: Code(s): R41.89 - Other symptoms and signs involving cognitive functions and awareness Status: Acute Assessment and Plan: 03/06/24: Continue neuro checks 03/07/24: No change (3) Chronic kidney disease: Code(s): N18.9 - Chronic kidney disease, unspecified Status: Acute Assessment and Plan: 03/06/24: Creatinine 1.3 which appears to be the patient's baseline Continue to trend 03/07/24: Creatinine is 1.4 03/08/24 Unchanged (4) Hypertension: Code(s): I10 - Essential (primary) hypertension Status: Acute Assessment and Plan: 03/06/24: Blood pressure ranging 108/54 to 130/63 Continue amlodipine, hydralazine, and Coreg 03/07/24: No change to current treatment plan 03/10/24: hypertensive x 1 episode monitor and adjust BP medication if continues to run high (5) Type 2 diabetes mellitus: Code(s): E11.9 - Type 2 diabetes mellitus without complications Status: Acute Assessment and Plan: 03/06/24: Blood sugars ranging 130-183 Hgb A1C 7.3 on 02/23/2024 Accu checks AC/HS Low-dose SSI ordered hypoglycemic protocol in place Diabetic diet ordered Continue Jardiance Hold sitagliptin 03/07/24: No change to current treatment plan (6) Hypokalemia: Code(s): E87.6 - Hypokalemia Status: Acute Assessment and Plan: K+ 2.8 Likely secondary to diarrhea held miralax replenished with 80 meq 03/10/24: RESOLVED (7) Yeast UTI: Code(s): B37.49 - Other urogenital candidiasis Status: Acute Assessment and Plan: UTI/Vaginal Diflucan IV x 14 days transition to PO at discharge (8) Urinary retention: Code(s): R33.9 - Retention of urine, unspecified Status: Acute Assessment and Plan: Bladder trial-remove padilla if no post void 6 hours bladder scan replace if >350 in bladder start flomax if she continues to have retention Plan Code status: Full code per patient DVT: Xarelto Disposition: [facility] to [facility] DS: Summary Hospital Course Reason for hospitalization: closed left femur fracture Hospital Course: Admission: Medical Chart This is a 64-year-old female who presented to the hospital on 03/05/2024 with altered mental status. And was noted to have pain with palpation over the left hip. 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 Chest x-ray showed cardiomegaly. Abdomen pelvis CT shows fracture of the left femoral neck, stone in the left kidney lower pole, possible small seroma in the right inguinal area,
[2024-03-12] MEDS: hydrALAZINE HCL 25 MG TABLET PO ×3 (10:31→16:34)
[2024-03-12] MEDS: PANTOPRAZOLE 40 MG TABLET PO ×2 (10:31→16:34)
[2024-03-12] MEDS: FUROSEMIDE 20 MG TABLET PO (10:31)
[2024-03-12] MEDS: SENNA/DOCUSATE SODIUM TABLET 2 TAB PO ×2 (10:31→16:34)
[2024-03-12] MEDS: carvediloL 12.5 MG TABLET PO (10:32)
[2024-03-12] MEDS: EMPAGLIFLOZIN 10 MG TABLET PO (10:32)
[2024-03-12] MEDS: FLUCONAZOLE 100 MG TABLET PO (10:32)
[2024-03-12] MEDS: amLODIPine BESYLATE 10 MG TABLET PO (10:32)
[2024-03-12] MEDS: ASPIRIN 81 MG CHEWABLE TABLET PO (10:32)
[2024-03-12] MEDS: cloNIDine HCL 0.2 MG TABLET PO (10:32)
--- NOTE | 2024-03-12 11:39 | PM.IMPN ---
Progress Note: A&P Assessment and Plan (1) Fracture of neck of left femur: Code(s): S72.002A - Fracture of unspecified part of neck of left femur, initial encounter for closed fracture Status: Acute Assessment and Plan: 03/06/24: Hip and pelvis x-ray showing fracture of the left femoral neck. Abdomen/pelvis CT showed fracture of the left femoral neck Orthopedic surgery consulted Patient had bipolar hip replacement today Continue pain control PT and OT ordered Case management following for outpatient rehab needs Continue Xarelto Continue IV fluids 03/07/24: Patient is postop day 1 from a left bipolar hip replacement Oncology following Continue pain control Continue PT and OT, currently a max assist with therapy Case management following 03/08/24: post-op day 2 site clean dry Held colace and mirilax today a few episodes of diarrhea today PT/OT SNF waiting on auth 03/09/24 Post-op day 3 Site check clean and dry Waiting on rehab auth (2) Cognitive impairment: Code(s): R41.89 - Other symptoms and signs involving cognitive functions and awareness Status: Acute Assessment and Plan: 03/06/24: Continue neuro checks 03/07/24: No change (3) Chronic kidney disease: Code(s): N18.9 - Chronic kidney disease, unspecified Status: Acute Assessment and Plan: 03/06/24: Creatinine 1.3 which appears to be the patient's baseline Continue to trend 03/07/24: Creatinine is 1.4 03/08/24 Unchanged (4) Hypertension: Code(s): I10 - Essential (primary) hypertension Status: Acute Assessment and Plan: 03/06/24: Blood pressure ranging 108/54 to 130/63 Continue amlodipine, hydralazine, and Coreg 03/07/24: No change to current treatment plan 03/10/24: hypertensive x 1 episode monitor and adjust BP medication if continues to run high (5) Type 2 diabetes mellitus: Code(s): E11.9 - Type 2 diabetes mellitus without complications Status: Acute Assessment and Plan: 03/06/24: Blood sugars ranging 130-183 Hgb A1C 7.3 on 02/23/2024 Accu checks AC/HS Low-dose SSI ordered hypoglycemic protocol in place Diabetic diet ordered Continue Jardiance Hold sitagliptin 03/07/24: No change to current treatment plan (6) Hypokalemia: Code(s): E87.6 - Hypokalemia Status: Acute Assessment and Plan: K+ 2.8 Likely secondary to diarrhea held miralax replenished with 80 meq 03/10/24: RESOLVED (7) Yeast UTI: Code(s): B37.49 - Other urogenital candidiasis Status: Acute Assessment and Plan: UTI/Vaginal Diflucan IV x 14 days transition to PO at discharge (8) Urinary retention: Code(s): R33.9 - Retention of urine, unspecified Status: Acute Assessment and Plan: Bladder trial-remove padilla if no post void 6 hours bladder scan replace if >350 in bladder start flomax if she continues to have retention Plan Code status: Full code per patient DVT: Xarelto Disposition: patient discharged to group home facility Subjective Date/time seen: 03/11/2024 11:39 This is to serve as 03/11/2024 progress note Interval history: Admission: Medical Chart This is a 64-year-old female who presented to the hospital on 03/05/2024 with altered mental status. And was noted to have pain with palpation over the left hip. 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 Chest x-ray showed cardiomegaly. Abdomen pelvis CT shows fracture of the left femoral neck, stone in the left kidney lower pole, possible small seroma in the right inguinal area, sliding hiatal hernia. Hand x-ray was negative. Hip and pelvis x-ray showed fracture of the left femoral n
[2024-03-12 11:54] LABS: Glucose Point of Care 238 mg/dl (65-105)
[2024-03-12] MEDS: INSULIN ASPART (*BKC) 100 UNITS/ML SUB-Q (13:57)
--- NOTE | 2024-03-12 14:35 | PC.NURSE ---
All nursing documentation on todays date form 699 to present has been completed by Pamela CUMMINS.
[2024-03-12] MEDS: HYDROcodone/acetaminophen (*CRX) 7.5-325 MG TABLET 1 TAB PO (16:30)
[2024-03-12] MEDS: RIVAROXABAN 10 MG TABLET PO (16:34)
[2024-03-12 16:49] LABS: Glucose Point of Care 197 mg/dl (65-105)
== END 2024-03-12 19:23 | DRG 522 ==
LOC: ANHED 18:42 → ANH3MEDSUR 19:17
PROVIDERS: Orthopaedic Surgery; Physician Assistant; Admitting Provider Internal Medicine; Emergency Provider Physician Assistant; PCP Physician Assistant; Visit Provider Nurse Practitioner Family
PROC: 0SRS01A Replacement of Left Hip Joint, Femoral Surface with Metal Synthetic Substitute, Uncemented, Open Approach (ICD-10-PCS; CPT 27125; principal; 2024-03-06 12:00)
DX: S72.002A Fracture of unspecified part of neck of left femur, initial encounter for closed fracture (principal); I69.351 Hemiplegia and hemiparesis following cerebral infarction affecting right dominant side; I13.0 Hypertensive heart and chronic kidney disease with heart failure and stage 1 through stage 4 chronic kidney disease, or unspecified chronic kidney disease; B37.49 Other urogenital candidiasis; I50.9 Heart failure, unspecified; N18.9 Chronic kidney disease, unspecified; I69.320 Aphasia following cerebral infarction; E87.6 Hypokalemia; R19.7 Diarrhea, unspecified; R33.9 Retention of urine, unspecified; R41.89 Other symptoms and signs involving cognitive functions and awareness; E11.22 Type 2 diabetes mellitus with diabetic chronic kidney disease; F17.210 Nicotine dependence, cigarettes, uncomplicated; Z79.82 Long term (current) use of aspirin
CPT/HCPCS: 36415; 70450; 71045; 73130; 73502; 74177; 80048; 80053; 80307; 81001; 82550; 82948; 83605; 83690; 83735; 84443; 85025; 85027; 85610; 85730; 86140; 87070; 87086; 87088; 87106; 87491; 87591; 87661; 93005; 96361; 97110; 97162; 97165; 97530; 97535; 99199; 99285; A9270; C1776; G0378; J0360; J0690; J1100; J1170; J1741; J1815; J2248; J2405; J2704; J3010; J3370; J3480; J7030; J7040; J7120; Q9967

== ENCOUNTER 2024-06-17 12:40 | Inpatient (IN) | payer BC, SELFPAY ==
[2024-06-17] VITALS (9 sets, daily range): BP systolic 92–149; BP diastolic 61–86; PULSE 57–69; RESP 16–19; TEMP 36.1–37; O2SAT 97–100; BMI 22.9
--- NOTE | ~2024-06-17 | CT_ITS ---
EXAMINATION: CT brain wo con DATE: 06/17/2024 13:15 INDICATION: Cerebrovascular accident. TECHNIQUE: Computed tomography (CT) of the head was performed without intravenous contrast. The mA wa s adjusted according to patient size. Iterative reconstruction technique was employed. The dose-lengt h product was 605.33 mGy-cm. COMPARISON: Head CT 03/05/2024, 02/23/2024 FINDINGS: There is an infarct involving the right parietal-occipital region. There is a large old inf arct involving the left frontal, temporal, and parietal lobes, left insula, left basal ganglia, left internal capsule, and left thalamus. There are scattered areas of low attenuation in the cerebral whi te matter. There is no intracranial hemorrhage or abnormal mass lesion. There is expected dilatation of left lateral ventricle. There is mild mucosal thickening in the ethmoid sinuses. The mastoid air c ells are normal. IMPRESSION: 1. Infarct involving the right parietal occipital region, likely acute. 2. Large old infarct involving the left frontal, temporal, and parietal lobes, left insula, left basa l ganglia, left internal capsule, and left thalamus. 3. Extensive nonspecific cerebral white matter disease, which likely represents chronic small vessel ischemic disease. Reviewed, dictated and finalized at location A. TRANSFER CLERK IMPRESSION: 1. Infarct involving the right parietal occipital region, likely acute. 2. 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 3. Extensive nonspecific cerebral white matter disease, which likely represents chronic small vessel ischemic disease.
--- NOTE | ~2024-06-17 | XR_ITS ---
EXAMINATION: XR barium swallow modified DATE: 06/19/2024 09:08 INDICATION: Coughing after ingesting liquids. TECHNIQUE: The patient was given barium-containing material of multiple consistencies to swallow by t nevaeh speech pathologist while I performed fluoroscopy. Fluoroscopy exposure time was 1.2 minutes. The n umber of fluoroscopy images saved to the PACS was 1. Dose-area product was 0.7 Gy-cm^2. FINDINGS: There is slow mastication with trace oral residue. There is trace flash laryngeal penetration. No asp iration. IMPRESSION: 1. Trace flash laryngeal penetration. No aspiration. 2. Please refer to the speech therapy report for recommendations. Reviewed, dictated and finalized at location A. ICAL ONCOLOGIST
--- NOTE | ~2024-06-17 | XR_ITS ---
EXAMINATION: XR chest 1V portable DATE: 06/17/2024 13:35 INDICATION: Cerebrovascular accident. TECHNIQUE: A single frontal view of the chest was obtained. COMPARISON: Chest single view 03/05/2024 FINDINGS: There are mild airspace opacities in left lower lung zone. No pleural effusion or pneumotho rax. The heart size is normal. IMPRESSION: 1. Mild airspace opacities in left lower lung zone, consistent with atelectasis versus pneumonia. Reviewed, dictated and finalized at location A. EL SERVICE TECHNICIAN
--- NOTE | ~2024-06-17 | XR_ITS ---
EXAMINATION: XR hip LT min 2V DATE: 06/19/2024 12:04 INDICATION: Left hip pain. TECHNIQUE: 2 views of left hip were obtained. COMPARISON: Left hip radiographs 04/19/2024 FINDINGS: There is a bipolar left hip hemiarthroplasty in near-anatomic alignment. No fracture. No pe riprosthetic lucency to suggest loosening or infection. There is an electrode in right S3 neural fora men. IMPRESSION: 1. Bipolar left hip hemiarthroplasty in near-anatomic alignment. Reviewed, dictated and finalized at location A. MBLER BODY
--- NOTE | ~2024-06-17 | CT_ITS ---
EXAMINATION: CTA brain carotid DATE: 06/17/2024 13:25 INDICATION: Right hemiparesis. TECHNIQUE: Computed tomographic angiography (CTA) of the head was performed with 100 mL Omnipaque-350 intravenous contrast. CTA of the neck was performed with intravenous contrast. Automated exposure co ntrol and iterative reconstruction technique were employed. The dose-length product was 889.59 mGy-cm . Maximum intensity projection and volume rendered 3D-reconstructions were created by the [employer] t on a separate workstation. COMPARISON: Head CT 06/17/2024, 03/05/2024 FINDINGS: HEAD CTA: There is an infarct involving the right parietal-occipital region. There is a large old inf arct involving the left frontal, temporal, and parietal lobes, left insula, left basal ganglia, left internal capsule, and left thalamus. There are scattered areas of low attenuation in the cerebral white matter. There is no intracranial hemorrhage or abnormal mass lesion. There is ex vacuo dilatation of left lateral ventricle. There is mild mucosal thickening in the ethmoid sinuses. The m astoid air cells are normal. The vertebral arteries are codominant. There is no significant stenosis of basilar artery or the posterior cerebral arteries. There is total occlusion of the cervical left internal carotid artery with intracranial reconstitution. There is mild stenosis of intracranial righ t internal carotid artery. There is total occlusion of left A2 anterior cerebral artery with reconsti tution. Left A1 anterior cerebral artery is small with small collateral arteries. There is total occl usion of left M1 middle cerebral artery with reconstitution of flow in the M2 branches from collatera ls. NECK CTA: There are nodules in the thyroid measuring up to 5 mm, likely not clinically significant. T here are no pathologically enlarged lymph nodes. There is no significant stenosis of the vertebral ar teries. There is mild stenosis of left common carotid artery. There is plaque in proximal right inter nal carotid artery. There is 22% stenosis of the proximal right internal carotid artery relative to n ormal distal artery lumen diameter (NASCET criteria). There is total occlusion of left cervical inter nal carotid artery. There is severe cervical spondylosis. IMPRESSION: 1. Infarct involving the right parietal occipital region, likely acute. 2. 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 3. Extensive nonspecific cerebral white matter disease, which likely represents chronic small vessel ischemic disease. 4. 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 5. Small left A1 anterior cerebral artery segment with collaterals. Total occlusion of left A2 anteri or cerebral artery with reconstitution. 6. Total occlusion of left M1 middle cerebral artery with reconstitution of flow in the M2 branches. 7. 22% stenosis of the proximal right internal carotid artery relative to normal distal artery lumen diameter (NASCET criteria). Reviewed, dictated and finalized at location A. STRATEGIST IMPRESSION: 1. Infarct involving the right parietal occipital region, likely acute. 2. 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 3. Extensive nonspecific cerebral white matter disease, which likely represents chronic small vessel ischemic disease. 4. Total occlusion of cervical left internal carotid artery with intracranial r econstitution. 5. Small left A1 anterior cerebral artery segment with collaterals. Total occlu karlee of left A2 anterior cerebral artery with reconstitution. 6. Total occlusion of left M1 middle cerebral artery with reconstitution of emilie w in the M2 branches. 7. 22% stenosis of the proximal right internal carotid artery relative to kely l distal artery lumen diameter (NASCET criteria).
--- NOTE | 2024-06-17 12:46 | ECG_ITS ---
Test Date: 2024-06-17 12:49:32 Measurements Intervals [place] Rate: 70 P: 54 NV: 138 QRS: -32 QRSD: 91 T: 151 QT: 405 QTc: 439 Interpretive Statements SINUS RHYTHM WITH MARKED SINUS ARRHYTHMIA MODERATE T-WAVE ABNORMALITY, CONSIDER ANTEROLATERAL ISCHEMIA [-0.1+ mV T-WAVE IN V3-V6] LEFT AXIS DEVIATION Compared to ECG 03/05/2024 10:46:25 T-wave abnormality now present Possible ischemia now present Electronically Signed On 06-17-2024 14:24:52 [employer] by Suleiman Gallardo M.D.
[2024-06-17 12:54] LABS: Glucose Point of Care 209 mg/dl (65-105)
[2024-06-17 13:01] LABS: Basophils Absolute Auto 0.1 K/mm3 (0.0-0.1); Basophils Percent Auto 0.6 % (0.2-1.2); Eosinophils Percent Auto 0.3 % (0-4.4); Hematocrit 41.9 % (37.0-47.0); Hemoglobin 12.8 g/dL (12.0-15.0); Immature Granulocyte Absolute 0.03 K/mm3 (0.00-0.031); Immature Granulocyte Percent A 0.3 % (0-0.5); Lymphocytes Absolute Auto 2.83 K/mm3 (0.9-3.2); Lymphocytes Percent Auto 28.7 % (18.3-44.2); Mean Corpuscular HGB Conc 30.5 g/dl (32-36); Mean Corpuscular Hemoglobin 25.7 pg (26-34); Mean Platelet Volume 10.3 fl (7.4-10.4); Monocytes Absolute Auto 0.5 K/mm3 (0.1-0.6); Monocytes Percent Auto 4.8 % (2.6-8.5); Neutrophils Absolute Auto 6.5 K/mm3 (1.3-6.7); Neutrophils Percent Auto 65.3 % (45.5-73.1); Platelet Count Result 385 k/mm3 (150-375); Red Blood Count 4.99 M/mm3 (4.2-5.4); Red Cell Distribution Width 14.6 % (11.5-14.5); White Blood Count 9.9 K/mm3 (4.5-10.0)
[2024-06-17 13:12] LABS: Alanine Aminotransferase 8 U/L (6-35); Albumin Level 3.9 g/dL (3.5-5.1); Alkaline Phosphatase 68 U/L (38-126); Anion Gap 6 mmol/L (4-12); Aspartate Amino Transferase 25 U/L (14-36); Bilirubin,Total 0.6 mg/dL (0.2-1.3); Blood Urea Nitrogen 17 mg/dL (7-17); Calcium 9.4 mg/dL (8.4-10.2); Carbon Dioxide 30 mmol/L (22-30); Chloride 104 mmol/L (98-107); Estimated Glomerular Filt Rate 56; Glucose 223 mg/dL (65-110); Potassium 4.3 mmol/L (3.4-5.0); Sodium 140 mmol/L (137-145)
[2024-06-17 13:13] LABS: Prothrombin Time 13.9 Seconds (11.1-14.7)
[2024-06-17 13:14] LABS: Partial Thromboplastin Time 23.6 Seconds (22.3-36.8)
[2024-06-17 13:24] LABS: Troponin I 0.021 ng/mL (0.000-0.034)
[2024-06-17 13:31] LABS: Alveolar/Arterial O2 Gradient 38.5 mmHg; Base Excess ABG -0.5 mEq/l (+/-2.0); Carboxyhemoglobin 5.1 % THb (0-2.0); Fractional Inspired Oxygen 21 %; HCO3 ABG 23.3 mEq/l (22.0-26.0); Oxygen Content ABG 14.7 %vol (16.0-22.0); Oxygen Saturation ABG 94.4 % (95.0-100.0); Oxyhemoglobin 89.1 % THb (90.0-100.0); PCO2 ABG 35.6 mmHg (35.0-45.0); PO2 ABG 68.6 mmHg (80.0-100.0); PO2 FiO2 Ratio Arterial Blood 3.27 %; Reduced Hemoglobin 5.8 %THb (0-5.0); Total Hemoglobin 11.7 g/dL (12.0-18.0); pH ABG 7.434 (7.350-7.450)
[2024-06-17 13:33] LABS: Site Drawn RIGHT BRACHIAL
--- NOTE | 2024-06-17 13:54 | ED_ITS ---
HPI - Neuro Symptoms/Deficit General Chief Complaint: Neuro Symptoms/Deficit Stated Complaint: STROKE LIKE S/S Time Seen by Provider: 06/17/24 12:59 History of Present Illness HPI Narrative: Patient is a 64-year-old female who presents ER with concerns for CVA. Patient has history of CVA in the past with large vessel occlusion of the left MCA. No in a soft low malacia. Has chronic weakness of the right side. Chart review shows patient can independently move that side. Patient is oriented to self and that she is at a hospital. She cannot provide any history other than saying she does not feel right. EMS with similar history. Unknown last known well. Patient responsive to verbal stimuli but has trouble following the commands. Difficult to know what is acute versus chronic. Will go for imaging. Related Data Home Medications Medication Instructions Recorded Confirmed Last Taken Type omeprazole 40 mg capsule,delayed 40 mg PO DAILY 11/15/21 04/19/24 Unknown History release aspirin 81 mg chewable tablet 81 mg PO DAILY 02/24/24 04/19/24 Unknown History empagliflozin 10 mg tablet 10 mg PO DAILY 02/24/24 04/19/24 Unknown History (Jardiance) sitagliptin phosphate 100 mg 100 mg PO DAILY 02/24/24 04/19/24 Unknown History tablet (Januvia) Allergies Allergy/AdvReac Type Severity Reaction Status Date / Time insulin glargine Allergy Severe Swelling Verified 04/19/24 11:14 amoxicillin Allergy Unknown Unknown Verified 04/19/24 11:14 cephalexin Allergy Unknown Unknown Verified 04/19/24 11:14 doxycycline Allergy Unknown Itching Verified 04/19/24 11:14 latex Allergy Unknown Unknown Verified 04/19/24 11:14 Penicillins Allergy Unknown Unknown Verified 04/19/24 11:14 sulfamethoxazole Allergy Unknown Swelling Verified 04/19/24 11:14 sumatriptan Allergy Unknown Unknown Verified 04/19/24 11:14 trazodone Allergy Unknown Swelling Verified 04/19/24 11:14 trimethoprim Allergy Unknown Swelling Verified 04/19/24 11:14 clindamycin Allergy Unknown Verified 04/19/24 11:14 Review of Systems 2 Review of Systems: ROS unobtainable: Yes unobtainable due to mental status PMFSH Past Medical History Medical History (Updated 06/17/24 @ 15:54 by Fracisco Corrales MD) Breast cancer Cognitive impairment Chronic kidney disease Hypertension Cerebrovascular accident Residual right-sided weakness and expressive aphasia. Type 2 diabetes mellitus Kidney stone Surgical History Surgical History (Updated 04/19/24 @ 11:36 by Natty Aggarwal CMA) History of hip surgery No pertinent past surgical history Family History Family History (Updated 04/19/24 @ 11:37 by Natty Aggarwal CMA) Mother Pulmonary embolism Other Unknown family medical history Social History Social History Social History: Surrogate medical decision maker: Son Jeyson Ibanez who lives in [place]. She does not want her sister making decisions for her. Code status: Full code. Smoking packs per day: 1 Smoking cigarettes per day: 20.0 Years smoked: 36 Smoking pack-years: 36.00 Smoking status: Current every day smoker Tobacco type: cigarettes Alcohol intake: never Substance use: never Substance use type: does not use Current Housing: Decline to Answer Concerned About Future Housing: Decline to Answer Difficulty Paying Gas/Electric Bills: Decline to Answer Difficulty Paying for Meds: Decline to Answer Currently Unemployed: Decline to Answer Education: Decline to Answer Difficulty w/ Childcare or Family Care: Decline to Answer Spiritual care concerns: No Exam 2 Narrative: GENERAL: Chronically ill-appearing, well-nourished, and in no acute distress. HEAD: Normocephalic, atraumatic. EYES: PERRL and EOMI. ENT: Mucous membranes moist. CHEST: Clear to auscultation. No respiratory distress. HEART: Regular rate and rhythm. Normal peripheral pulses. ABDOMEN: Soft, nontender, nondistended. EXTREMITIES: no deformity of the upper lower extremities. flaccid paralysis right upper extremity, will move the toes of the right foot but will not independently move the knee are hip on my exam. She has however tucked her right foot behind her left knee and it is unsure if that was positioning by nursing staff or patient did it on her own. Patient will move the toes of left foot. She is able to lift her left arm with normal strength. SKIN: Warm, dry, no rash. NEURO: See NIH stroke scale. Significant weakness on the right side that seems worse than previously documented normal but she will not move the right arm and only moves the right toes. She does not respond to pain on the right side. She has left upper extremity drift. The left lower extremity she moves the foot as well but will not lift the leg off the bed. Unable to preform heel to light testing. Mild right facial weakness. Patient with mild expressive aphasia and mildly slurred speech which may be chronic from previous chart review. Alert and oriented x2. Course Course Emergency Course: 1435: I have had multiple conversations with the patient's GISEL Zhao who is her sister. I have also discussed the case with [facility] stroke team Dr. Jeter. the stroke team feels with the evidence of the infarct and the chronic occlusions patient would not be offered TNK. I do agree with this and I have concerns that patient's stroke may be older than the initial time frame that we know about given its appearance on the CT. Chart review showed prescription for Xarelto but after speaking with patient's sister it sounds like she is not taking that and it is unknown why she was on the medication. I have consulted Neurology here at [facility] and patient may be admitted evaluated further. At baseline patient can sometimes pull herself up to standing position for transfer but does not walk and uses a wheelchair. Patient has been made aware of the seriousness of her condition as well. Accepted by hospitalist service. Vital Signs Vital signs: Vital Signs Temperature 97.6 F 06/17/24 12:40 Pulse Rate 69 06/17/24 12:40 Respiratory Rate 16 06/17/24 12:40 Blood Pressure 92/64 L 06/17/24 12:40 Pulse Oximetry 100 06/17/24 12:40 Oxygen Delivery Room Air 06/17/24 12:40 Temperature 97.6 F 06/17/24 12:40 Pulse Rate 64 06/17/24 15:00 Respiratory Rate 17 06/17/24 15:00 Blood Pressure 136/86 06/17/24 15:00 Pulse Oximetry 100 06/17/24 15:00 Oxygen Delivery Room Air 06/17/24 12:40 MDM - Neuro Symptoms/Deficit Lab Data 06/17/24 12:56 06/17/24 12:56 Labs: Lab Results 06/17/24 06/17/24 06/17/24 Range/Units 12:46 12:56 13:25 WBC 9.9 (4.5-10.0) K/mm3 RBC 4.99 (4.2-5.4) M/mm3 Hgb 12.8 (12.0-15.0) g/dL Hct 41.9 (37.0-47.0) % MCV 84.0 (80-100) fl MCH 25.7 L (26-34) pg MCHC 30.5 L (32-36) g/dl RDW 14.6 H (11.5-14.5) % Plt Count 385 H (150-375) k/mm3 MPV 10.3 (7.4-10.4) fl Immature Gran % (Auto) 0.3 (0-0.5) % Neut % (Auto) 65.3 (45.5-73.1) % Lymph % (Auto) 28.7 (18.3-44.2) % [place] % (Auto) 4.8 (2.6-8.5) % Eos % (Auto) 0.3 (0-4.4) % Baso % (Auto) 0.6 (0.2-1.2) % Lymph # (Auto) 2.83 (0.9-3.2) K/mm3 [place] # (Auto) 0.5 (0.1-0.6) K/mm3 Eos # (Auto) 0.0 (0-0.3) K/mm3 Baso # (Auto) 0.1 (0.0-0.1) K/mm3 Abs Immat Gran (auto) 0.03 (0.00-0.031) K/mm3 Absolute Neuts (auto) 6.5 (1.3-6.7) K/mm3 Absolute Nucleated RBC 0.000 (0.0-0.012) K/mm3 Nucleated RBC % 0.0 (0.0-0.2) % PT 13.9 (11.1-14.7) Seconds INR 1.0 APTT 23.6 (22.3-36.8) Seconds Methemoglobin 0.0 (0-1.5) %THb Sodium 140 (137-145) mmol/L Potassium 4.3 (3.4-5.0) mmol/L Chloride 104 (98-107) mmol/L Carbon Dioxide 30 (22-30) mmol/L Anion Gap 6 (4-12) mmol/L BUN 17 (7-17) mg/dL Creatinine 1.00 (0.7-1.0) mg/dL Estim Creat Clear Calc Not Reportable Estimated GFR 56 L (59 - ) Glucose 223 H (65-110) mg/dL POC Capillary Glucose 209 H (65-105) mg/dl Calcium 9.4 (8.4-10.2) mg/dL Total Bilirubin 0.6 (0.2-1.3) mg/dL AST 25 (14-36) U/L ALT 8 (6-35) U/L Alkaline Phosphatase 68 (38-126) U/L Troponin I 0.021 (0.000-0.034) ng/mL Total Protein 8.0 (6.3-8.2) g/dL Albumin 3.9 (3.5-5.1) g/dL ABG Data ABG results: 06/17/24 13:25 Puncture Site Right brachial ABG pH 7.434 ABG pCO2 35.6 ABG pO2 68.6 L ABG PO2/FiO2 Ratio 3.27 ABG HCO3 23.3 ABG O2 Saturation 94.4 L ABG O2 Content 14.7 L ABG Base Excess -0.5 A-a Gradient 38.5 Oxyhemoglobin 89.1 L Carboxyhemoglobin 5.1 H Reduced Hemoglobin 5.8 H Total Hemoglobin 11.7 L O2 Delivery Device Not Reportable O2 Liters/Min Not Reportable FiO2 21 Imaging Data Radiologist's impression: ITS Impressions Head CT 06/17/24 13:21 IMPRESSION: 1. Infarct involving the right parietal occipital region, likely acute. 2. 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 3. Extensive nonspecific cerebral white matter disease, which likely represents chronic small vessel ischemic disease. Head/Neck CTA 06/17/24 13:26 IMPRESSION: 1. Infarct involving the right parietal occipital region, likely acute. 2. 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 3. Extensive nonspecific cerebral white matter disease, which likely represents chronic small vessel ischemic disease. 4. 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 5. Small left A1 anterior cerebral artery segment with collaterals. Total occlusion of left A2 anterior cerebral artery with reconstitution. 6. Total occlusion of left M1 middle cerebral artery with reconstitution of flow in the M2 branches. 7. 22% stenosis of the proximal right internal carotid artery relative to normal distal artery lumen diameter (NASCET criteria). Chest X-Ray 06/17/24 13:36 IMPRESSION: 1. Mild airspace opacities in left lower lung zone, consistent with atelectasis versus pneumonia. ECG Data EKG #1: ECG completion date: 06/17/24 ECG completion time: 15:49 EKG Interpretation: normal rate (70), sinus rhythm, non-specific ST changes (anterolateral t-wave inversions and depression), normal QRS and left axis Discharge Plan Discharge Clinical Impression: Acute cerebrovascular accident (CVA) Patient Disposition: Still a Patient Condition: Stable Patient Language: [place] Prescriptions: No Action aspirin 81 mg tablet,chewable 81 mg PO DAILY Januvia 100 mg tablet 100 mg PO DAILY Jardiance 10 mg tablet 10 mg PO DAILY amlodipine 10 mg Tablet 10 mg PO DAILY Qty: 30 1RF carvedilol [Coreg] 12.5 mg Tablet 12.5 mg PO Q12HR Qty: 30 1RF hydralazine 25 mg Tablet 25 mg PO TID Qty: 30 1RF clonidine HCl 0.2 mg Tablet 0.2 mg PO Q12HR Qty: 30 1RF furosemide 20 mg Tablet 20 mg PO DAILY Qty: 30 0RF fluconazole [Diflucan] 100 mg Tablet 100 mg PO QAM Qty: 11 0RF acetaminophen 325 mg Tablet 650 mg PO Q6HR Qty: 15 0RF hydrocodone-acetaminophen 5-325 mg Tablet 1 tablet PO Q4H PRN (Reason: Pain Rated 4-6) Qty: 20 0RF sennosides-docusate sodium [Senokot-S] 8.6-50 mg Tablet 2 tab PO BID Qty: 14 0RF Xarelto 10 mg Tablet 10 mg PO DAILY@1700 Qty: 30 0RF tramadol 50 mg Tablet 50 mg PO Q4H PRN (Reason: Pain Rated 1-3) Qty: 20 0RF omeprazole 40 mg capsule,delayed release(DR/EC) 40 mg PO DAILY Follow-up/Referrals: Desmond Melendrez MD [Primary Care Provider] - Quality Stroke Scale Stroke Scale 1: Stroke scale date:: 06/17/24 1a Level of consciousness: alert-0 1b Level of consciousness questions: answers none correctly-2 1c Level of consciousness commands: obeys both correctly-0 2 Best gaze: normal-0 3 Visual: no visual loss-0 4 Facial palsy: minor paralysis-1 5a Motor: left arm: drift-1 5b Motor: right arm: no movement-4 6a Motor: left leg: no effort/gravity-3 6b Motor: right leg: no effort/gravity-3 7 Limb ataxia: present in two limbs-2 8 Sensory: sev total sensory loss-2 9 Best language: some loss of fluency-1 10 Dysarthria: slurs some words-1 11 Extinction and inattention: no abnormality-0 Level:: 20
[2024-06-17] MEDS: ASPIRIN 81 MG CHEWABLE TABLET 324 MG PO (15:10)
--- NOTE | 2024-06-17 15:49 | P.HP_ITS ---
H&P: HPI History of Present Illness Date/Time: 06/17/24 15:49 Chief Complaint: New stroke-like symptoms on right side Narrative: 64-year-old female with previous stroke with residual left-sided weakness only able to transfer to wheelchair now presents with right-sided flaccid.. Unknown if patient is compliant with Xarelto. HPI is limited due to patient having word-finding issues, getting frustrated. CT head shows new right parietal up septal infarct, old left frontal temporal and parietal lobe, left insula, left basal ganglia, left internal capsule, and left thalamus. Patient had ABG that showed hypoxia placed on 2 L nasal cannula and given 20 of IV Lasix. Patient is hyperglycemic started on insulin protocol. Chest x-ray shows possible pneumonia versus atelectasis. Review of Systems Review of Systems: 12 systems were reviewed and are negativ e except for as per HPI. [facility] Past Medical History Medical History (Updated 06/17/24 @ 19:44 by Althea Aparicio, PAIGE) Breast cancer Cognitive impairment Chronic kidney disease Hypertension Cerebrovascular accident Residual right-sided weakness and expressive aphasia. Type 2 diabetes mellitus Kidney stone Surgical History Surgical History (Updated 04/19/24 @ 11:36 by Natty Aggarwal CMA) History of hip surgery No pertinent past surgical history Family History Family History (Updated 04/19/24 @ 11:37 by Natty Aggarwal CMA) Mother Pulmonary embolism Other Unknown family medical history Social History Social History Social History: Surrogate medical decision maker: Son Jeyson Ibanez who lives in [place]. She does not want her sister making decisions for her. Code status: Full code. Smoking packs per day: 1 Smoking cigarettes per day: 20.0 Years smoked: 40 Smoking pack-years: 40.00 Smoking status: Former smoker Tobacco type: cigarettes Alcohol intake: never Substance use: never Substance use type: does not use Do You Feel Safe in your Home?: Yes Lack of Transportation: No Lack of Food: Never True Current Housing: I Have Housing Concerned About Future Housing: No Difficulty Paying Gas/Electric Bills: No Difficulty Paying for Meds: No Currently Unemployed: No Education: High School Diploma/GED Difficulty w/ Childcare or Family Care: No Spiritual care concerns: No Meds Home Medications and Allergies Home Medications Medication Instructions Recorded Confirmed Type omeprazole 40 mg capsule,delayed 40 mg PO DAILY 11/15/21 06/17/24 History release empagliflozin 10 mg tablet 10 mg PO DAILY 02/24/24 06/17/24 History (Jardiance) sitagliptin phosphate 100 mg 100 mg PO DAILY 02/24/24 06/17/24 History tablet (Januvia) amlodipine 10 mg tablet 10 mg PO DAILY #30 tabs 03/03/24 06/17/24 Rx carvedilol 12.5 mg tablet (Coreg) 12.5 mg PO Q12HR #30 tabs 03/03/24 06/17/24 Rx clonidine HCl 0.2 mg tablet 0.2 mg PO Q12HR #30 tabs 03/03/24 06/17/24 Rx furosemide 20 mg tablet 20 mg PO DAILY #30 tabs 03/03/24 06/17/24 Rx acetaminophen 325 mg tablet 650 mg (2 x 325 mg) PO Q6HR #15 03/12/24 06/17/24 Rx tabs hydrocodone 5 mg-acetaminophen 325 1 tablet PO Q4H PRN Pain Rated 4-6 03/12/24 06/17/24 Rx mg tablet #20 tabs rivaroxaban 10 mg tablet (Xarelto) 10 mg PO DAILY@1700 #30 tabs 03/12/24 06/17/24 Rx sennosides 8.6 mg-docusate sodium 2 tab PO BID #14 tabs 03/12/24 06/17/24 Rx 50 mg tablet (Senokot-S) tramadol 50 mg tablet 50 mg PO Q4H PRN Pain Rated 1-3 03/12/24 06/17/24 Rx #20 tabs glipizide 2.5 mg tablet, extended 2.5 mg PO DAILY 06/17/24 06/17/24 History release 24 hr Allergies Allergy/AdvReac Type Severity Reaction Status Date / Time insulin glargine Allergy Severe Swelling Verified 04/19/24 11:14 amoxicillin Allergy Unknown Unknown Verified 04/19/24 11:14 cephalexin Allergy Unknown Unknown Verified 04/19/24 11:14 doxycycline Allergy Unknown Itching Verified 04/19/24 11:14 latex Allergy Unknown Unknown Verified 04/19/24 11:14 Penicillins Allergy Unknown Unknown Verified 04/19/24 11:14 sulfamethoxazole Allergy Unknown Swelling Verified 04/19/24 11:14 sumatriptan Allergy Unknown Unknown Verified 04/19/24 11:14 trazodone Allergy Unknown Swelling Verified 04/19/24 11:14 trimethoprim Allergy Unknown Swelling Verified 04/19/24 11:14 clindamycin Allergy Unknown Verified 04/19/24 11:14 Vital Signs Vital Signs - 24 hr 06/17/24 12:40 06/17/24 12:46 06/17/24 13:00 Temperature 97.6 F Pulse Rate 69 68 67 Respiratory Rate 16 16 19 Blood Pressure 92/64 L 92/64 L 139/69 Pulse Oximetry 100 98 100 Oxygen Delivery Room Air 06/17/24 14:00 06/17/24 15:00 Temperature Pulse Rate 67 64 Respiratory Rate 18 17 Blood Pressure 141/71 H 136/86 Pulse Oximetry 100 100 Oxygen Delivery Exam Narrative: General: well appearing, appears stated age. HEENT: normocephalic, atraumatic. Mucous membranes moist. EOMI, PERRLA, bilateral sclera anicteric, no conjunctival injection. Neck supple without JVD, lymphadenopathy, or bruit. Respiratory: clear to ascultation bilaterally. No rales/rhonic/wheezes. Cardiovascular: Regular rate and rhythm, normal S1-S2 upon ascultation. No murmurs, rubs, or clicks. PMI is nondisplaced, capillary refill less than 3 second. Abdomen: Soft, round, no pulsatile masses, nondistended and nontender. No rebound, no guarding. No CVA tenderness, no hepatosplenomegaly. Bowel sounds present to all four quadrants. No high pitch or tinkling sounds, resonant to percussion. Extremities: Week on bilateral left extremities, flaccid on right side Neuro: Alert and oriented word finding issues. PERRLA.. Skin: Warm, dry, and intact, without rash, erythema, or lesion. Psych: pleasant, cooperative, normal speech, normal affect, no hallucinations, no dysarthia H&P: Results Labs Labs: Short CBC 06/17/24 Range/Units 12:56 WBC 9.9 (4.5-10.0) K/mm3 Hgb 12.8 (12.0-15.0) g/dL Hct 41.9 (37.0-47.0) % Plt Count 385 H (150-375) k/mm3 BMP 06/17/24 12:56 Sodium 140 Potassium 4.3 Chloride 104 Carbon Dioxide 30 BUN 17 Creatinine 1.00 Glucose 223 H Calcium 9.4 Cardiac Enzymes 06/17/24 Range/Units 12:56 Troponin I 0.021 (0.000-0.034) ng/mL Liver Function 06/17/24 Range/Units 12:56 Total Bilirubin 0.6 (0.2-1.3) mg/dL AST 25 (14-36) U/L ALT 8 (6-35) U/L Alkaline Phosphatase 68 (38-126) U/L Albumin 3.9 (3.5-5.1) g/dL Assessment and Plan Assessment and plan (1) Acute cerebrovascular accident (CVA): Code(s): I63.9 - Cerebral infarction, unspecified Status: Acute Assessment and Plan: Neurology consulted CT shows new ischemic stroke Case was discussed with tertiary center by ED doctor and patient is outside of the window for TNK, ok to keep patient here per Neurology Aspirin 324 x 1 Permissive hypertension PT and OT Noncompliance with Xarelto (2) Type 2 diabetes mellitus: Code(s): E11.9 - Type 2 diabetes mellitus without complications Status: Acute Assessment and Plan: 02/23/2024 hemoglobin A1c 7.3 Accu-Cheks AC and HS Diabetic diet SSI (3) Hypertension: Code(s): I10 - Essential (primary) hypertension Status: Acute Assessment and Plan: Permissive hypertension, hold antihypertensives (4) CHF (congestive heart failure): Code(s): I50.9 - Heart failure, unspecified Status: Acute Assessment and Plan: Hypoxia ABG 20 a IV Lasix Start home dose tomorrow (5) Hypoxia: Code(s): R09.02 - Hypoxemia Status: Acute Assessment and Plan: Hypoxia on ABG Repeat ABG Chest x-ray shows left lower lobe consistent with atelectasis versus pneumonia Patient's lung sounds are clear but diminished will hold off on IV antibiotics at this time she has no white count (6) History of CVA (cerebrovascular accident): Code(s): Z86.73 - Personal history of transient ischemic attack (TIA), and cerebral infarction without residual deficits Status: Acute Assessment and Plan: Wheelchair-bound Left-sided residual weakness Quality VTE Prophylaxis VTE prophylaxis: mechanical ordered Stroke Scale 1a Level of conciousness: alert-0 1b Level of consciousness: answers both correctly-0 1c Level of consciousness: obeys both correctly-0 2 Best gaze: normal-0 3 Visual: no visual loss-0 4 Facial palsy: minor paralysis-1 5a Motor: left arm: drift-1 5b Motor: right arm: no movement-4 6a Motor: left leg: drift-1 6b Motor: right leg: no movement-4 7 Limb ataxia: present in one limb-1 8 Sensory: pinprick less sharp-1 9 Best language: some loss of fluency-1 10 Dysarthria: slurs some words-1 11 Extinction and inattention: partial inattention-1 Level:: 16 Comment: Outside of window Pharmacological Therapy Was IV thrombolytic therapy given?: No Contraindications to IV thrombolytic therapy: medical contraindication Hospitalist MIPS Advance Care Plan I have confirmed that the patient's Advanced Care Plan is present, code status is documented, or surrogate decision maker is listed in patient medical record.: Yes Medication Reconciliation I have utilized all available resources to obtain, update and review the patients current medications (includes all prescriptions, OTC, herbals, cannabis, and nutritional supplements).: Yes
--- NOTE | 2024-06-17 16:37 | ADMGEN ---
This patient, Adalgisa Tirado, was admitted to -. Patient/family oriented to hospital policies and general routines including ID bracelet, bed and alarms, visiting hours, pain management, procedures, bathroom and other care routines, personal items, smoking policy, room service/diet, and visiting hours. Information on how to activate the Rapid Response Team has been discussed. Patient/Family are encouraged to report perceived risks to care and to ask questions if they do not understand what they are told or what they should do.
[2024-06-17] MEDS: ACETAMINOPHEN 325 MG TABLET 650 MG PO (18:22)
[2024-06-17 19:59] LABS: Glucose Point of Care 101 mg/dl (65-105)
[2024-06-17 20:08] LABS: Alveolar/Arterial O2 Gradient 24.2 mmHg; Base Excess ABG 3.3 mEq/l (+/-2.0); Fractional Inspired Oxygen 21 %; Oxygen Content ABG 17.1 %vol (16.0-22.0); Oxygen Saturation ABG 95.3 % (95.0-100.0); Oxyhemoglobin 92.5 % THb (90.0-100.0); PCO2 ABG 42.8 mmHg (35.0-45.0); PO2 ABG 74.3 mmHg (80.0-100.0); PO2 FiO2 Ratio Arterial Blood 3.54 %; Total Hemoglobin 13.1 g/dL (12.0-18.0); pH ABG 7.433 (7.350-7.450)
[2024-06-17 20:09] LABS: Modified Allen's Test Pass; Site Drawn LEFT RADIAL
[2024-06-17] MEDS: HYDROcodone/acetaminophen (*CRX) 5-325 MG TABLET 1 TAB PO (20:33)
[2024-06-17] MEDS: FUROSEMIDE INJ 40 MG/4 ML VIAL 20 MG IV PUSH (23:46)
[2024-06-18] VITALS (13 sets, daily range): BP systolic 160–187; BP diastolic 74–88; PULSE 58–88; RESP 12–18; TEMP 36.9–37.5; O2SAT 92–100; BMI 22.9
[2024-06-18] MEDS: ACETAMINOPHEN 325 MG TABLET 650 MG PO (06:00)
--- NOTE | 2024-06-18 07:44 | PC.NURSE ---
Spoke with [facility] (imaging) who advised the jingle writer that the pt won't be able to have MRI because of the bladder stimulator.
[2024-06-18 08:31] LABS: Glucose Point of Care 130 mg/dl (65-105)
[2024-06-18] MEDS: PANTOPRAZOLE 40 MG TABLET PO ×2 (09:20→19:59)
[2024-06-18] MEDS: FUROSEMIDE 20 MG TABLET PO (09:21)
[2024-06-18] MEDS: SENNA/DOCUSATE SODIUM TABLET 2 TAB PO ×2 (09:21→16:54)
[2024-06-18] MEDS: carvediloL 12.5 MG TABLET PO ×2 (09:22→19:58)
--- NOTE | 2024-06-18 09:47 | WPDNEURCNPN ---
Assessment and Plan Assessment and plan (1) Acute cerebrovascular accident (CVA): Code(s): I63.9 - Cerebral infarction, unspecified Status: Acute (2) Type 2 diabetes mellitus: Code(s): E11.9 - Type 2 diabetes mellitus without complications Status: Acute (3) Hypertension: Code(s): I10 - Essential (primary) hypertension Status: Acute Plan 1. 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 2. 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 And 22% stenosis proximal right internal carotid artery but the CT scan documents infarct involving the right parietal occipital region as an acute problem. Sent to see [facility] stroke department was contacted and patient was not to be offered TNK , unfortunately patient has not been taking her Xarelto regularly. 3. Medication will be restarted here and with rehab as necessary. Consult date: 06/18/24 HPI: Adalgisa Tirado is a 64 year old female Admitted to the hospital through the emergency room where she presented with concerns for the recurrence of the stroke. 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 She could not provide any history other than saying that she does not feel right side though she was responsive to the verbal stimuli and also she had trouble following the commands. She has been taking aspirin 81mg daily along with Januvia 100mg daily and Jardiance 10mg daily. SHe is reportedly allergic to multiple medications as outlined. SHe does have ongoing history of 1. Carcinoma of the breast 2. Chronic renal disease 3. Hypertension 4. Diabetes mellitus 5. Left-sided stroke with difficulties in speech She does smoke 1 pack of cigarettes per day has been smoking for 20 years with history of years smoked 36 and currently everyday smoker. On initial examination in the emergency room she was documented to be chronically ill appearing with paralysis of her right upper extremity ,ability to move the toes of the right foot but not independently move the knee or hip, her vital signs were normal, CBC was normal, BMP with blood sugar of 223, and the other labs normal, CT scan of the head documented no bleed but she were noted to have infarct involving the right parietal occipital region in addition to the old infarct of large size involving the left frontal temporal and parietal lobes also including the left insula left basal ganglia and left internal capsule and left thalamus, head and neck CTA documented the infarct as mentioned above with total occlusion of cervical left internal carotid artery with intracranial reconstitution and small left A1 anterior cerebral artery segment with collateral but total occlusion of left A2 anterior cerebral artery with reconstitution ,total occlusion of left M1 middle cerebral artery with reconstitution of flow in the M 2 branches in addition to 22% stenosis of proximal right internal carotid artery. [facility] stroke team was contacted ,no transfer was suggested ,as per the chart patient was supposed to have Xarelto but as per the communication with this family she was not taking the medication, patient was admitted to the hospital for the stabilization of the neurological status. her EKG was normal with no evidence of atrial fibrillation. his stroke scale was 16 but outside of when and also medical contraindication for the IV thrombolytic therapy Review of Systems Review of Systems: All systems reviewed & are unremarkable except as noted in HPI and below PMFSH Past Medical History Medical History Breast cancer Cognitive impairment Chronic kidney disease Hypertension Cerebrovascular accident Residual right-sided weakness and expressive aphasia. Type 2 diabetes mellitus Kidney stone Surgical History Surgical History History of hip surgery No pertinent past surgical history Family History Family History Mother Pulmonary embolism Other Unknown family medical history Social History Social History Social History: Surrogate medical decision maker: Son Jeyson Ibanez who lives in [place]. She does not want her sister making decisions for her. Code status: Full code. Smoking packs per day: 1 Smoking cigarettes per day: 20.0 Years smoked: 40 Smoking pack-years: 40.00 Smoking status: Former smoker Tobacco type: cigarettes Alcohol intake: never Substance use: never Substance use type: does not use Do You Feel Safe in your Home?: Yes Lack of Transportation: No Lack of Food: Never True Current Housing: I Have Housing Concerned About Future Housing: No Difficulty Paying Gas/Electric Bills: No Difficulty Paying for Meds: No Currently Unemployed: No Education: High School Diploma/GED Difficulty w/ Childcare or Family Care: No Spiritual care concerns: No Meds Home Medications and Allergies Home Medications Medication Instructions Recorded Confirmed Type omeprazole 40 mg capsule,delayed 40 mg PO DAILY 11/15/21 06/17/24 History release empagliflozin 10 mg tablet 10 mg PO DAILY 02/24/24 06/17/24 History (Jardiance) sitagliptin phosphate 100 mg 100 mg PO DAILY 02/24/24 06/17/24 History tablet (Januvia) amlodipine 10 mg tablet 10 mg PO DAILY #30 tabs 03/03/24 06/17/24 Rx carvedilol 12.5 mg tablet (Coreg) 12.5 mg PO Q12HR #30 tabs 03/03/24 06/17/24 Rx clonidine HCl 0.2 mg tablet 0.2 mg PO Q12HR #30 tabs 03/03/24 06/17/24 Rx furosemide 20 mg tablet 20 mg PO DAILY #30 tabs 03/03/24 06/17/24 Rx acetaminophen 325 mg tablet 650 mg (2 x 325 mg) PO Q6HR #15 03/12/24 06/17/24 Rx tabs hydrocodone 5 mg-acetaminophen 325 1 tablet PO Q4H PRN Pain Rated 4-6 03/12/24 06/17/24 Rx mg tablet #20 tabs rivaroxaban 10 mg tablet (Xarelto) 10 mg PO DAILY@1700 #30 tabs 03/12/24 06/17/24 Rx sennosides 8.6 mg-docusate sodium 2 tab PO BID #14 tabs 03/12/24 06/17/24 Rx 50 mg tablet (Senokot-S) tramadol 50 mg tablet 50 mg PO Q4H PRN Pain Rated 1-3 03/12/24 06/17/24 Rx #20 tabs glipizide 2.5 mg tablet, extended 2.5 mg PO DAILY 06/17/24 06/17/24 History release 24 hr Allergies Allergy/AdvReac Type Severity Reaction Status Date / Time insulin glargine Allergy Severe Swelling Verified 04/19/24 11:14 amoxicillin Allergy Unknown Unknown Verified 04/19/24 11:14 cephalexin Allergy Unknown Unknown Verified 04/19/24 11:14 doxycycline Allergy Unknown Itching Verified 04/19/24 11:14 latex Allergy Unknown Unknown Verified 04/19/24 11:14 Penicillins Allergy Unknown Unknown Verified 04/19/24 11:14 sulfamethoxazole Allergy Unknown Swelling Verified 04/19/24 11:14 sumatriptan Allergy Unknown Unknown Verified 04/19/24 11:14 trazodone Allergy Unknown Swelling Verified 04/19/24 11:14 trimethoprim Allergy Unknown Swelling Verified 04/19/24 11:14 clindamycin Allergy Unknown Verified 04/19/24 11:14 Vital Signs Vital Signs - 24 hr 06/17/24 12:40 06/17/24 12:46 06/17/24 13:00 Temperature 36.4 C Pulse Rate 69 68 67 Respiratory Rate 16 16 19 Blood Pressure 92/64 L 92/64 L 139/69 Pulse Oximetry 100 98 100 Oxygen Delivery Room Air Oxygen Flow Rate 06/17/24 14:00 06/17/24 15:00 06/17/24 17:12 Temperature 36.1 C L Pulse Rate 67 64 57 L Respiratory Rate 18 17 18 Blood Pressure 141/71 H 136/86 149/72 H Pulse Oximetry 100 100 97 Oxygen Delivery Oxygen Flow Rate 06/17/24 17:40 06/17/24 19:34 06/17/24 20:00 Temperature 37.0 C Pulse Rate 57 L 58 L 58 L Respiratory Rate 18 18 18 Blood Pressure 120/61 Pulse Oximetry 97 98 98 Oxygen Delivery Room Air Room Air Oxygen Flow Rate 06/17/24 20:00 06/18/24 00:00 06/18/24 01:51 Temperature Pulse Rate 59 L 63 58 L Respiratory Rate 18 Blood Pressure Pulse Oximetry 98 Oxygen Delivery Nasal Cannula Oxygen Flow Rate 2 06/18/24 04:00 06/18/24 05:41 06/18/24 06:00 Temperature 37.3 C 37.3 C Pulse Rate 76 75 Respiratory Rate 17 Blood Pressure 160/82 H Pulse Oximetry 100 Oxygen Delivery Oxygen Flow Rate 06/18/24 07:00 06/18/24 09:18 06/18/24 09:22 Temperature 37.1 C 36.9 C Pulse Rate 67 67 Respiratory Rate 16 Blood Pressure 167/88 H Pulse Oximetry 92 Oxygen Delivery Oxygen Flow Rate Exam Narrative: Examination revealed her to be awake alert making good eye contact and time follow the verbal instruction but not exactly following the commands. Head normocephalic with no cranial bruit, ear nose throat examination is normal, neck supple with no cervical bruits, with no thyromegaly, heart regular with no murmur, lungs clear to auscultation with no rhonchi or crepitations, abdomen soft nontender, neurologically she is awake laying in bed with eyes open making good eye contact but unable to follow the verbal commands appropriately, pupils round regular react to light equally, king of vision are unreliable as she did not respond to the threat stimuli, extraocular movements are spontaneously full with no nystagmus, facial sensation intact, face symmetrical, tongue in the oral cavity, motor examination revealed her to have hemiparesis on the right more obvious than the left with hyperreflexia and upgoing plantar responses , she had difficulty performing [id number] to finger because of the inability to follow all the instructions. She was unable to stand and walk. Results Labs 06/17/24 12:56 06/17/24 12:56 Labs: Short CBC 06/17/24 Range/Units 12:56 WBC 9.9 (4.5-10.0) K/mm3 Hgb 12.8 (12.0-15.0) g/dL Hct 41.9 (37.0-47.0) % Plt Count 385 H (150-375) k/mm3 BMP 06/17/24 12:56 Sodium 140 Potassium 4.3 Chloride 104 Carbon Dioxide 30 BUN 17 Creatinine 1.00 Glucose 223 H Calcium 9.4 Cardiac Enzymes 06/17/24 Range/Units 12:56 Troponin I 0.021 (0.000-0.034) ng/mL Liver Function 06/17/24 Range/Units 12:56 Total Bilirubin 0.6 (0.2-1.3) mg/dL AST 25 (14-36) U/L ALT 8 (6-35) U/L Alkaline Phosphatase 68 (38-126) U/L Albumin 3.9 (3.5-5.1) g/dL
[2024-06-18 12:00] LABS: Glucose Point of Care 182 mg/dl (65-105)
[2024-06-18] MEDS: NICOTINE (*PBKC) 14 MG PATCH 1 PATCH TRANSDERM (13:35)
--- NOTE | 2024-06-18 14:32 | PM.IMPN ---
Progress Note: A&P Assessment and Plan (1) Hypoxia: Code(s): R09.02 - Hypoxemia Status: Acute Assessment and Plan: Pt is on oxygen Chest x-ray shows left lower lobe consistent with atelectasis versus pneumonia ? aspiration pneumonia ST ordered to evaluate pt cover with iv rocephin and flagyl for now (2) CHF (congestive heart failure): Code(s): I50.9 - Heart failure, unspecified Status: Acute Assessment and Plan: Continue pts home dose of oral lasix Pt has history of CHF Order ECHO (3) Acute cerebrovascular accident (CVA): Code(s): I63.9 - Cerebral infarction, unspecified Status: Acute Assessment and Plan: Neurology consulted CT shows new ischemic stroke Case was discussed with tertiary center by ED doctor and patient is outside of the window for fatoumata BARROSO to keep patient here per Neurology continue asa xarelto and statin as per neurology md - Bihemispheric stroke with old left hemisphere involvement and super imposed right hemispheric stroke as well. 2. 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 And 22% stenosis proximal right internal carotid artery but the CT scan documents infarct involving the right parietal occipital region as an acute problem. (4) Urinary retention: Code(s): R33.9 - Retention of urine, unspecified Status: Acute Assessment and Plan: pass catheter if necessary (5) Type 2 diabetes mellitus: Code(s): E11.9 - Type 2 diabetes mellitus without complications Status: Acute Assessment and Plan: 02/23/2024 hemoglobin A1c 7.3 Accu-Cheks AC and HS Diabetic diet SSI (6) Hypertension: Code(s): I10 - Essential (primary) hypertension Status: Acute Assessment and Plan: Permissive hypertension, hold antihypertensives (7) History of CVA (cerebrovascular accident): Code(s): Z86.73 - Personal history of transient ischemic attack (TIA), and cerebral infarction without residual deficits Status: Acute Assessment and Plan: Wheelchair-bound Left-sided residual weakness from previous tia continue PT/ OT/ ST await AR bed Subjective Date/time seen: 06/18/24 14:32 Interval history: Pt admitted with acute new CVA pt having severe R sided weakness arm and leg able to speak and swallow seen by neurology ok to continue PT/ OT/ ST await AR placement bp on higher side of nl continue to watch in hospital pt is a smoker and has not been taking her medications correctly pmh of tia, htn and dm Review of Systems Review of Systems: mainly right sided weakness Exam Narrative: General: well appearing, appears stated age. HEENT: normocephalic, atraumatic. Mucous membranes moist. EOMI, PERRLA, bilateral sclera anicteric, no conjunctival injection. Neck supple without JVD, lymphadenopathy, or bruit. Respiratory: clear to ascultation bilaterally. No rales/rhonic/wheezes. Cardiovascular: Regular rate and rhythm, normal S1-S2 upon ascultation. No murmurs, rubs, or clicks. PMI is nondisplaced, capillary refill less than 3 second. Abdomen: Soft, round, no pulsatile masses, nondistended and nontender. No rebound, no guarding. No CVA tenderness, no hepatosplenomegaly. Bowel sounds present to all four quadrants. No high pitch or tinkling sounds, resonant to percussion. Extremities: severe R sided weakness Neuro: Alert and oriented word finding issues. PERRLA.. Skin: Warm, dry, and intact, without rash, erythema, or lesion. Psych: pleasant, cooperative, normal speech, normal affect, no hallucinations, no dysarthia Objective Data Vital Signs Vital Signs: Vital Signs - 24 hr 06/17/24 15:00 06/17/24 17:12 06/17/24 17:40 Temperature 36.1 C L Pulse Rate 64 57 L 57 L Respiratory Rate 17 18 18 Blood Pressure 136/86 149/72 H Pulse Oximetry 100 97 97 Oxygen Delivery Room Air Oxygen Flow Rate 06/17/24 19:34 06/17/24 20:00 06/17/24 20:00 Temperature 37.0 C Pulse Rate 58 L 58 L 59 L Respiratory Rate 18 18 Blood Pressure 120/61 Pulse Oximetry 98 98 Oxygen Delivery Room Air Oxygen Flow Rate 06/18/24 00:00 06/18/24 01:51 06/18/24 04:00 Temperature Pulse Rate 63 58 L 76 Respiratory Rate 18 Blood Pressure Pulse Oximetry 98 Oxygen Delivery Nasal Cannula Oxygen Flow Rate 2 06/18/24 05:41 06/18/24 06:00 06/18/24 07:00 Temperature 37.3 C 37.3 C 37.1 C Pulse Rate 75 Respiratory Rate 17 Blood Pressure 160/82 H Pulse Oximetry 100 Oxygen Delivery Oxygen Flow Rate 06/18/24 09:18 06/18/24 09:22 Temperature 36.9 C Pulse Rate 67 67 Respiratory Rate 16 Blood Pressure 167/88 H Pulse Oximetry 92 Oxygen Delivery Oxygen Flow Rate Intake/Output Intake/Output: Intake & Output 06/15/24 06/16/24 06/17/24 06/18/24 23:59 23:59 23:59 23:59 Intake Total 390 1080 Output Total 1550 Balance 390 -470 Meds/Results Medications: Active Medications Generic Name Dose Route Start Last Admin Trade Name Freq PRN Reason Stop Dose Admin Acetaminophen 650 mg 06/17/24 15:14 06/18/24 06:00 Acetaminophen 325 Mg Tablet PO 650 mg Q4H PRN Administration Mild Pain (1-3) or Fever Hydrocodone Bitart/Acetaminophen 1 tab 06/17/24 15:14 06/17/24 20:33 Hydrocodone/Acetaminophen (*Crx) 5-325 Mg Tablet PO 1 tab Q4H PRN Administration Pain Rated 4-6 Carvedilol 12.5 mg 06/18/24 09:00 06/18/24 09:22 Carvedilol 12.5 Mg Tablet PO 12.5 mg Q12HR JAQUI Administration Dextrose 12.5 gm 06/17/24 19:32 Dextrose 50% 25 Gm/50 Ml Syringe IV PUSH PRN PRN Hypoglycemia Protocol Furosemide 20 mg 06/18/24 09:00 06/18/24 09:21 Furosemide 20 Mg Tablet PO 20 mg DAILY JAQUI Administration Glucagon 1 mg 06/17/24 19:32 Glucagon For Inj 1 Mg Vial IM PRN PRN Hypoglycemia Protocol Glucose 15 gm 06/17/24 19:32 Glucose Oral Gel 15 Gm Of Glucse In 37.5 Gm Tube PO PRN PRN Hypoglycemia Protocol Dextrose 1,000 mls @ 100 mls/hr 06/17/24 19:32 Dextrose 5% 1,000 Ml IVPB PRN PRN Hypoglycemia Protocol Insulin Aspart 2 - 5 units 06/18/24 08:00 06/18/24 13:16 Insulin Aspart (*Bkc) 100 Units/Ml SUB-Q Not Given TIDWM JAQUI Protocol Insulin Aspart 1 - 2 units 06/17/24 21:00 06/17/24 20:34 Insulin Aspart (*Bkc) 100 Units/Ml SUB-Q Not Given HS JAQUI Protocol Nicotine 1 patch 06/18/24 09:00 06/18/24 13:35 Nicotine (*Reese) 14 Mg Patch TRANSDERM 1 patch DAILY JAQUI Administration Ondansetron HCl 4 mg 06/17/24 15:14 Ondansetron Inj 4 Mg/2 Ml Vial IV PUSH Q4H PRN Nausea Pantoprazole Sodium 40 mg 06/18/24 09:00 06/18/24 09:20 Pantoprazole 40 Mg Tablet PO 40 mg Q12HR JAQUI Administration Senna/Docusate Sodium 2 tab 06/18/24 09:00 06/18/24 09:21 Senna/Docusate Sodium Tablet PO 2 tab BID JAQUI Administration Radiology Results: ITS Impressions Head CT 06/17/24 13:21 IMPRESSION: 1. Infarct involving the right parietal occipital region, likely acute. 2. 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 3. Extensive nonspecific cerebral white matter disease, which likely represents chronic small vessel ischemic disease. Head/Neck CTA 06/17/24 13:26 IMPRESSION: 1. Infarct involving the right parietal occipital region, likely acute. 2. 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 3. Extensive nonspecific cerebral white matter disease, which likely represents chronic small vessel ischemic disease. 4. 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 5. Small left A1 anterior cerebral artery segment with collaterals. Total occlusion of left A2 anterior cerebral artery with reconstitution. 6. Total occlusion of left M1 middle cerebral artery with reconstitution of flow in the M2 branches. 7. 22% stenosis of the proximal right internal carotid artery relative to normal distal artery lumen diameter (NASCET criteria). Chest X-Ray 06/17/24 13:36 IMPRESSION: 1. Mild airspace opacities in left lower lung zone, consistent with atelectasis versus pneumonia. Labs Labs: Laboratory Results - last 24 hr 06/17/24 06/17/24 06/18/24 19:49 19:56 08:14 Puncture Site Left radial ABG pH 7.433 ABG pCO2 42.8 ABG pO2 74.3 L ABG PO2/FiO2 Ratio 3.54 ABG HCO3 28.0 H ABG O2 Saturation 95.3 ABG O2 Content 17.1 ABG Base Excess 3.3 A-a Gradient 24.2 Oxyhemoglobin 92.5 Total Hemoglobin 13.1 O2 Delivery Device Not Reportable O2 Liters/Min Not Reportable FiO2 21 POC Capillary Glucose 101 130 H 06/18/24 11:44 Puncture Site ABG pH ABG pCO2 ABG pO2 ABG PO2/FiO2 Ratio ABG HCO3 ABG O2 Saturation ABG O2 Content ABG Base Excess A-a Gradient Oxyhemoglobin Total Hemoglobin O2 Delivery Device O2 Liters/Min FiO2 POC Capillary Glucose 182 H
[2024-06-18 16:34] LABS: Glucose Point of Care 104 mg/dl (65-105)
[2024-06-18] MEDS: RIVAROXABAN 10 MG TABLET PO (16:53)
[2024-06-18] MEDS: metroNIDAZOLE 500 MG TABLET PO ×2 (16:54→19:58)
[2024-06-18] MEDS: HYDROcodone/acetaminophen (*CRX) 5-325 MG TABLET 1 TAB PO (19:18)
[2024-06-18] MEDS: INSULIN ASPART (*BKC) 100 UNITS/ML SUB-Q (19:59)
[2024-06-18 20:17] LABS: Glucose Point of Care 201 mg/dl (65-105)
[2024-06-19] VITALS (12 sets, daily range): BP systolic 133–165; BP diastolic 75–87; PULSE 79–798; RESP 14–20; TEMP 36.3–37.8; O2SAT 95–100
[2024-06-19 05:34] LABS: Basophils Absolute Auto 0.1 K/mm3 (0.0-0.1); Basophils Percent Auto 0.7 % (0.2-1.2); Eosinophils Absolute Auto 0.1 K/mm3 (0-0.3); Eosinophils Percent Auto 0.6 % (0-4.4); Hematocrit 41.2 % (37.0-47.0); Hemoglobin 12.8 g/dL (12.0-15.0); Immature Granulocyte Absolute 0.06 K/mm3 (0.00-0.031); Immature Granulocyte Percent A 0.4 % (0-0.5); Lymphocytes Absolute Auto 4.77 K/mm3 (0.9-3.2); Lymphocytes Percent Auto 31.6 % (18.3-44.2); Mean Corpuscular HGB Conc 31.1 g/dl (32-36); Mean Corpuscular Hemoglobin 25.5 pg (26-34); Mean Corpuscular Volume 82.1 fl (80-100); Mean Platelet Volume 10.2 fl (7.4-10.4); Monocytes Percent Auto 6.6 % (2.6-8.5); Neutrophils Absolute Auto 9.1 K/mm3 (1.3-6.7); Neutrophils Percent Auto 60.1 % (45.5-73.1); Platelet Count Result 370 k/mm3 (150-375); Red Blood Count 5.02 M/mm3 (4.2-5.4); Red Cell Distribution Width 14.2 % (11.5-14.5); White Blood Count 15.1 K/mm3 (4.5-10.0)
[2024-06-19] MEDS: metroNIDAZOLE 500 MG TABLET PO ×3 (05:37→20:15)
[2024-06-19] MEDS: HYDROcodone/acetaminophen (*CRX) 5-325 MG TABLET 1 TAB PO ×2 (05:38→20:10)
[2024-06-19 05:46] LABS: Alanine Aminotransferase 10 U/L (6-35); Albumin Level 3.8 g/dL (3.5-5.1); Alkaline Phosphatase 73 U/L (38-126); Anion Gap 4 mmol/L (4-12); Aspartate Amino Transferase 31 U/L (14-36); Bilirubin,Total 0.6 mg/dL (0.2-1.3); Blood Urea Nitrogen 24 mg/dL (7-17); Calcium 9.4 mg/dL (8.4-10.2); Carbon Dioxide 28 mmol/L (22-30); Chloride 103 mmol/L (98-107); Estimated CRCL calculation 45 ml/min; Estimated Glomerular Filt Rate 56; Glucose 148 mg/dL (65-110); Potassium 3.7 mmol/L (3.4-5.0); Sodium 135 mmol/L (137-145)
[2024-06-19 07:55] LABS: Glucose Point of Care 220 mg/dl (65-105)
[2024-06-19] MEDS: carvediloL 12.5 MG TABLET PO ×2 (08:05→20:16)
[2024-06-19] MEDS: SENNA/DOCUSATE SODIUM TABLET 2 TAB PO ×2 (08:05→16:36)
[2024-06-19] MEDS: ASPIRIN 81 MG ENTERIC TABLET PO (08:05)
[2024-06-19] MEDS: FUROSEMIDE 20 MG TABLET PO (08:06)
[2024-06-19] MEDS: ATORVASTATIN 40 MG TABLET PO (08:06)
[2024-06-19] MEDS: PANTOPRAZOLE 40 MG TABLET PO ×2 (08:06→20:15)
[2024-06-19] MEDS: INSULIN ASPART (*BKC) 100 UNITS/ML SUB-Q (08:07)
[2024-06-19] MEDS: NICOTINE (*PBKC) 14 MG PATCH 1 PATCH TRANSDERM (08:08)
[2024-06-19] MEDS: amLODIPine BESYLATE 10 MG TABLET PO (08:09)
--- NOTE | 2024-06-19 10:31 | PCSTNOTE ---
Please refer to the Modified Barium Swallow Evaluation in the EMR. The above pt was seen for a modified barium swallow due to witnessed difficulty with thin liquids (throat clearing) as well as history of multiple CVA's. The pt was somewhat lethargic but followed simple commands; brief oral motor assessment revealed weak labial & lingual structures with mild to moderately reduced ROM. She was seated for a lateral view and presented with thin liquids via a spoon, pudding via a spoon, small pieces of cracker via a spoon which were all controlled amounts; the thin liquids were also tested again in uncontrolled amounts via a cup and a straw. With the liquids & pudding, the oral stages were within functional limits; with the small pieces of cracker, lingual residue was exhibited but was cleared with liquid wash. During the pharyngeal stage, trace/flash laryngeal penetration was noted with the uncontrolled trials of thin liquids but it was cleared without aspiration. Impressions: functional swallow but slightly weak oral stages which poor dentition also impacts Recommendation: Level 5 minced and moist diet with thin liquids; 1:1 supervision during meals is recommended due to lethargy and to encourage small sips and bites.
--- NOTE | 2024-06-19 11:14 | PM.IMPN ---
Progress Note: A&P Assessment and Plan (1) Hypoxia: Code(s): R09.02 - Hypoxemia Status: Acute Assessment and Plan: Pt is on oxygen Chest x-ray shows left lower lobe consistent with atelectasis versus pneumonia ? aspiration pneumonia ST ordered to evaluate pt cover with iv rocephin and flagyl for now (2) CHF (congestive heart failure): Code(s): I50.9 - Heart failure, unspecified Status: Acute Assessment and Plan: Continue pts home dose of oral lasix Pt has history of CHF ECHO EF 60-65% and grade I diastolic dysfunction (3) Acute cerebrovascular accident (CVA): Code(s): I63.9 - Cerebral infarction, unspecified Status: Acute Assessment and Plan: Neurology consulted CT shows new ischemic stroke Case was discussed with tertiary center by ED doctor and patient is outside of the window for fatoumata BARROSO to keep patient here per Neurology continue asa xarelto and statin as per neurology md - Bihemispheric stroke with old left hemisphere involvement and super imposed right hemispheric stroke as well. 2. 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 And 22% stenosis proximal right internal carotid artery but the CT scan documents infarct involving the right parietal occipital region as an acute problem. (4) Urinary retention: Code(s): R33.9 - Retention of urine, unspecified Status: Acute Assessment and Plan: pass catheter if necessary (5) Type 2 diabetes mellitus: Code(s): E11.9 - Type 2 diabetes mellitus without complications Status: Acute Assessment and Plan: 02/23/2024 hemoglobin A1c 7.3 Accu-Cheks AC and HS Diabetic diet SSI (6) Hypertension: Code(s): I10 - Essential (primary) hypertension Status: Acute Assessment and Plan: Permissive hypertension, hold antihypertensives (7) History of CVA (cerebrovascular accident): Code(s): Z86.73 - Personal history of transient ischemic attack (TIA), and cerebral infarction without residual deficits Status: Acute Assessment and Plan: Wheelchair-bound Left-sided residual weakness from previous tia continue PT/ OT/ ST await AR bed Subjective Date/time seen: 06/19/24 11:14 Interval history: Patient comfortable at bedside awaiting placement Review of Systems Review of Systems: mainly right sided weakness Exam Narrative: General: well appearing, appears stated age. HEENT: normocephalic, atraumatic. Mucous membranes moist. EOMI, PERRLA, bilateral sclera anicteric, no conjunctival injection. Neck supple without JVD, lymphadenopathy, or bruit. Respiratory: clear to ascultation bilaterally. No rales/rhonic/wheezes. Cardiovascular: Regular rate and rhythm, normal S1-S2 upon ascultation. No murmurs, rubs, or clicks. PMI is nondisplaced, capillary refill less than 3 second. Abdomen: Soft, round, no pulsatile masses, nondistended and nontender. No rebound, no guarding. No CVA tenderness, no hepatosplenomegaly. Bowel sounds present to all four quadrants. No high pitch or tinkling sounds, resonant to percussion. Extremities: severe R sided weakness Neuro: Alert and oriented word finding issues. PERRLA.. Skin: Warm, dry, and intact, without rash, erythema, or lesion. Psych: pleasant, cooperative, normal speech, normal affect, no hallucinations, no dysarthia Objective Data Vital Signs Vital Signs: Vital Signs - 24 hr 06/18/24 12:00 06/18/24 14:00 06/18/24 16:14 Temperature 99.5 F Pulse Rate 76 75 Respiratory Rate 12 Blood Pressure 187/74 H Pulse Oximetry 100 Oxygen Delivery Room Air 06/18/24 20:00 06/18/24 20:00 06/18/24 20:56 Temperature 99.4 F Pulse Rate 88 86 86 Respiratory Rate 18 18 Blood Pressure 163/86 H Pulse Oximetry 100 100 Oxygen Delivery Room Air 06/19/24 00:00 06/19/24 04:00 06/19/24 05:57 Temperature 99.1 F Pulse Rate 79 80 85 Respiratory Rate 20 Blood Pressure 165/78 H Pulse Oximetry 100 Oxygen Delivery 06/19/24 08:03 06/19/24 08:05 06/19/24 08:07 Temperature 97.7 F Pulse Rate 798 H 80 Respiratory Rate 16 Blood Pressure 133/75 Pulse Oximetry 95 95 Oxygen Delivery Room Air 06/19/24 08:07 Temperature Pulse Rate 83 Respiratory Rate Blood Pressure Pulse Oximetry Oxygen Delivery Intake/Output Intake/Output: Intake & Output 06/16/24 06/17/24 06/18/24 06/19/24 23:59 23:59 23:59 23:59 Intake Total 390 3220 340 Output Total 3250 600 Balance 390 -68 -605 Meds/Results Medications: Active Medications Generic Name Dose Route Start Last Admin Trade Name Bryan PRN Reason Stop Dose Admin Acetaminophen 650 mg 06/17/24 15:14 06/18/24 06:00 Acetaminophen 325 Mg Tablet PO 650 mg Q4H PRN Administration Mild Pain (1-3) or Fever Hydrocodone Bitart/Acetaminophen 1 tab 06/17/24 15:14 06/19/24 05:38 Hydrocodone/Acetaminophen (*Crx) 5-325 Mg Tablet PO 1 tab Q4H PRN Administration Pain Rated 4-6 Amlodipine Besylate 10 mg 06/19/24 09:00 06/19/24 08:09 Amlodipine Besylate 10 Mg Tablet PO 10 mg DAILY JAQUI Administration Aspirin 81 mg 06/19/24 09:00 06/19/24 08:05 Aspirin 81 Mg Enteric Tablet PO 81 mg QAM JAQUI Administration Atorvastatin Calcium 40 mg 06/19/24 09:00 06/19/24 08:06 Atorvastatin 40 Mg Tablet PO 40 mg DAILY JAQUI Administration Carvedilol 12.5 mg 06/18/24 09:00 06/19/24 08:05 Carvedilol 12.5 Mg Tablet PO 12.5 mg Q12HR JAQUI Administration Dextrose 12.5 gm 06/17/24 19:32 Dextrose 50% 25 Gm/50 Ml Syringe IV PUSH PRN PRN Hypoglycemia Protocol Furosemide 20 mg 06/18/24 09:00 06/19/24 08:06 Furosemide 20 Mg Tablet PO 20 mg DAILY JAQUI Administration Glucagon 1 mg 06/17/24 19:32 Glucagon For Inj 1 Mg Vial IM PRN PRN Hypoglycemia Protocol Glucose 15 gm 06/17/24 19:32 Glucose Oral Gel 15 Gm Of Glucse In 37.5 Gm Tube PO PRN PRN Hypoglycemia Protocol Dextrose 1,000 mls @ 100 mls/hr 06/17/24 19:32 Dextrose 5% 1,000 Ml IVPB PRN PRN Hypoglycemia Protocol Insulin Aspart 2 - 5 units 06/18/24 08:00 06/19/24 08:07 Insulin Aspart (*Bkc) 100 Units/Ml SUB-Q 2 units TIDWM JAQUI Administration Protocol Insulin Aspart 1 - 2 units 06/17/24 21:00 06/18/24 19:59 Insulin Aspart (*Bkc) 100 Units/Ml SUB-Q 1 units HS JAQUI Administration Protocol Metronidazole 500 mg 06/18/24 16:00 06/19/24 05:37 Metronidazole 500 Mg Tablet PO 500 mg Q8HR JAQUI Administration Nicotine 1 patch 06/18/24 09:00 06/19/24 08:08 Nicotine (*Pbkc) 14 Mg Patch TRANSDERM 1 patch DAILY JAQUI Administration Ondansetron HCl 4 mg 06/17/24 15:14 Ondansetron Inj 4 Mg/2 Ml Vial IV PUSH Q4H PRN Nausea Pantoprazole Sodium 40 mg 06/18/24 09:00 06/19/24 08:06 Pantoprazole 40 Mg Tablet PO 40 mg Q12HR JAQUI Administration Rivaroxaban 10 mg 06/18/24 17:00 06/18/24 16:53 Rivaroxaban 10 Mg Tablet PO 10 mg DAILY@1700 JAQUI Administration Senna/Docusate Sodium 2 tab 06/18/24 09:00 06/19/24 08:05 Senna/Docusate Sodium Tablet PO 2 tab BID JAQUI Administration Radiology Results: ITS Impressions Head CT 06/17/24 13:21 IMPRESSION: 1. Infarct involving the right parietal occipital region, likely acute. 2. 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 3. Extensive nonspecific cerebral white matter disease, which likely represents chronic small vessel ischemic disease. Head/Neck CTA 06/17/24 13:26 IMPRESSION: 1. Infarct involving the right parietal occipital region, likely acute. 2. 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 3. Extensive nonspecific cerebral white matter disease, which likely represents chronic small vessel ischemic disease. 4. 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 5. Small left A1 anterior cerebral artery segment with collaterals. Total occlusion of left A2 anterior cerebral artery with reconstitution. 6. Total occlusion of left M1 middle cerebral artery with reconstitution of flow in the M2 branches. 7. 22% stenosis of the proximal right internal carotid artery relative to normal distal artery lumen diameter (NASCET criteria). Chest X-Ray 06/17/24 13:36 IMPRESSION: 1. Mild airspace opacities in left lower lung zone, consistent with atelectasis versus pneumonia. Modified Barium Swallow 06/19/24 09:30 IMPRESSION: 1. Trace flash laryngeal penetration. No aspiration. 2. Please refer to the speech therapy report for recommendations. Labs Labs: Laboratory Results - last 24 hr 06/18/24 06/18/24 06/18/24 11:44 16:27 19:53 WBC RBC Hgb Hct MCV MCH MCHC RDW Plt Count MPV Immature Gran % (Auto) Neut % (Auto) Lymph % (Auto) [place] % (Auto) Eos % (Auto) Baso % (Auto) Lymph # (Auto) [place] # (Auto) Eos # (Auto) Baso # (Auto) Abs Immat Gran (auto) Absolute Neuts (auto) Absolute Nucleated RBC Nucleated RBC % Sodium Potassium Chloride Carbon Dioxide Anion Gap BUN Creatinine Estim Creat Clear Calc Estimated GFR Glucose POC Capillary Glucose 182 H 104 201 H Calcium Total Bilirubin AST ALT Alkaline Phosphatase Total Protein Albumin 06/19/24 06/19/24 05:15 07:43 WBC 15.1 H RBC 5.02 Hgb 12.8 Hct 41.2 MCV 82.1 MCH 25.5 L MCHC 31.1 L RDW 14.2 Plt Count 370 MPV 10.2 Immature Gran % (Auto) 0.4 Neut % (Auto) 60.1 Lymph % (Auto) 31.6 [place] % (Auto) 6.6 Eos % (Auto) 0.6 Baso % (Auto) 0.7 Lymph # (Auto) 4.77 H [place] # (Auto) 1.0 H Eos # (Auto) 0.1 Baso # (Auto) 0.1 Abs Immat Gran (auto) 0.06 H Absolute Neuts (auto) 9.1 H Absolute Nucleated RBC 0.000 Nucleated RBC % 0.0 Sodium 135 L Potassium 3.7 Chloride 103 Carbon Dioxide 28 Anion Gap 4 BUN 24 H Creatinine 1.00 Estim Creat Clear Calc 45 Estimated GFR 56 L Glucose 148 H POC Capillary Glucose 220 H Calcium 9.4 Total Bilirubin 0.6 AST 31 ALT 10 Alkaline Phosphatase 73 Total Protein 8.0 Albumin 3.8 Quality VTE Prophylaxis VTE prophylaxis: mechanical ordered
[2024-06-19 11:50] LABS: Glucose Point of Care 175 mg/dl (65-105)
[2024-06-19 12:34] LABS: Alveolar/Arterial O2 Gradient 75.7 mmHg; Device NASAL CANNULA; Fractional Inspired Oxygen 28 %; HCO3 ABG 24.5 mEq/l (22.0-26.0); Oxygen Content ABG 17.8 %vol (16.0-22.0); Oxygen Saturation ABG 96.6 % (95.0-100.0); Oxyhemoglobin 95.4 % THb (90.0-100.0); PCO2 ABG 35.6 mmHg (35.0-45.0); PO2 ABG 81.9 mmHg (80.0-100.0); PO2 FiO2 Ratio Arterial Blood 2.92 %; Site Drawn RIGHT BRACHIAL; Total Hemoglobin 13.2 g/dL (12.0-18.0); pH ABG 7.456 (7.350-7.450)
[2024-06-19] MEDS: RIVAROXABAN 10 MG TABLET PO (16:35)
[2024-06-19 17:03] LABS: Glucose Point of Care 199 mg/dl (65-105)
[2024-06-19 23:05] LABS: Glucose Point of Care 181 mg/dl (65-105)
[2024-06-20] VITALS: PULSE 90
[2024-06-20 04:00] VITALS: PULSE 86
[2024-06-20 06:00] VITALS: BP 165/89; PULSE 97; RESP 16; TEMP 36.7; O2SAT 98
[2024-06-20] MEDS: metroNIDAZOLE 500 MG TABLET PO (06:05)
[2024-06-20] MEDS: HYDROcodone/acetaminophen (*CRX) 5-325 MG TABLET 1 TAB PO (06:08)
[2024-06-20 08:00] VITALS: PULSE 87
[2024-06-20 08:17] LABS: Glucose Point of Care 188 mg/dl (65-105)
[2024-06-20] MEDS: levoFLOXacin 750 MG/D5W 150 ML 750 MG/150 ML BAG 100 MG IVPB (08:26)
[2024-06-20] MEDS: polyethylene glycoL 3350 17 GM POWD.PACK PO (08:27)
[2024-06-20] MEDS: ASPIRIN 81 MG ENTERIC TABLET PO (08:27)
[2024-06-20] MEDS: carvediloL 12.5 MG TABLET PO (08:27)
[2024-06-20] MEDS: NICOTINE (*PBKC) 14 MG PATCH 1 PATCH TRANSDERM (08:27)
[2024-06-20] MEDS: amLODIPine BESYLATE 10 MG TABLET PO (08:27)
[2024-06-20] MEDS: SENNA/DOCUSATE SODIUM TABLET 2 TAB PO (08:27)
[2024-06-20] MEDS: PANTOPRAZOLE 40 MG TABLET PO (08:27)
[2024-06-20] MEDS: ACETAMINOPHEN 325 MG TABLET 650 MG PO (08:27)
[2024-06-20] MEDS: ATORVASTATIN 40 MG TABLET PO (08:28)
[2024-06-20] MEDS: FUROSEMIDE 20 MG TABLET PO (08:29)
--- NOTE | 2024-06-20 10:10 | P.DS_ITS ---
DS: Admitting Diagnosis Discharge Date 06/20/24 Admitting Diagnosis New stroke-like symptoms on right side DS: Discharge Diagnosis Discharge Diagnosis (1) Acute cerebrovascular accident (CVA): Code(s): I63.9 - Cerebral infarction, unspecified Status: Acute DS: Summary Hospital Course Hospital Course: 64-year-old female with previous stroke with residual left-sided weakness only able to transfer to wheelchair now presents with right-sided flaccid.. Unknown if patient is compliant with Xarelto. HPI is limited due to patient having word-finding issues, getting frustrated. CT head shows new right parietal up septal infarct, old left frontal temporal and parietal lobe, left insula, left basal ganglia, left internal capsule, and left thalamus. Patient had ABG that showed hypoxia placed on 2 L nasal cannula and given 20 of IV Lasix. Patient is hyperglycemic started on insulin protocol. Chest x-ray shows possible pneumonia versus atelectasis. Neurology eval noted that patient has not been compliant with Xarelto. Patient was started on Aspirin and Lipitor and Continued on Xarelto. Was not a candidate for TNK per neurology. ECHO showed EF 60-65% with grade I diastolic dysfunction. Patient now has right-sided flaccid paralysis, PT evaluated and recommended Rehab however patient and family declined noting that they have full arrangement at home to take care of patient even physical therapy and care givers. Patient was thus discharged home. Continue Aspirin and Lipitor. F/u with PCP in 3-5 days and with neurology as instructed. Patient is swallowing okay and tolerating diet. Patient not Patient was also managed for Pneumonia likely aspiration and dscharged on 5 more day of Levaquin and Flagyl. was initialy needing oxygen but was successfully weaning off to room air. continue other home meds. Assessment and Plan (1) Hypoxia: Code(s): R09.02 - Hypoxemia Status: Acute Assessment and Plan: Pt is on oxygen Chest x-ray shows left lower lobe consistent with atelectasis versus pneumonia ? aspiration pneumonia ST ordered to evaluate pt cover with iv rocephin and flagyl for now (2) CHF (congestive heart failure): Code(s): I50.9 - Heart failure, unspecified Status: Acute Assessment and Plan: Continue pts home dose of oral lasix Pt has history of CHF ECHO EF 60-65% and grade I diastolic dysfunction (3) Acute cerebrovascular accident (CVA): Code(s): I63.9 - Cerebral infarction, unspecified Status: Acute Assessment and Plan: Neurology consulted CT shows new ischemic stroke Case was discussed with tertiary center by ED doctor and patient is outside of the window for fatoumata BARROSO to keep patient here per Neurology continue asa xarelto and statin as per neurology md - Bihemispheric stroke with old left hemisphere involvement and super imposed right hemispheric stroke as well. 2. 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 And 22% stenosis proximal right internal carotid artery but the CT scan documents infarct involving the right parietal occipital region as an acute problem. (4) Urinary retention: Code(s): R33.9 - Retention of urine, unspecified Status: Acute Assessment and Plan: pass catheter if necessary (5) Type 2 diabetes mellitus: Code(s): E11.9 - Type 2 diabetes mellitus without complications Status: Acute Assessment and Plan: 02/23/2024 hemoglobin A1c 7.3 Accu-Cheks AC and HS Diabetic diet SSI (6) Hypertension: Code(s): I10 - Essential (primary) hypertension Status: Acute Assessment and Plan: Permissive hypertension, hold antihypertensives (7) History of CVA (cerebrovascular accident): Code(s): Z86.73 - Personal history of transient ischemic attack (TIA), and cerebral infarction without residual deficits Status: Acute Assessment and Plan: Wheelchair-bound Left-sided residual weakness from previous tia continue PT/ OT/ ST await AR bed Time Spent with Patient Time attestation: Total time spent providing and/or coordinating discharge services: DS: Data Data Completed and Pending Labs on day of discharge: Labs from last 24 hours 06/20/24 06/19/24 06/19/24 08:01 19:39 16:54 Puncture Site ABG pH ABG pCO2 ABG pO2 ABG PO2/FiO2 Ratio ABG HCO3 ABG O2 Saturation ABG O2 Content ABG Base Excess A-a Gradient Oxyhemoglobin Total Hemoglobin O2 Delivery Device O2 Liters/Min FiO2 POC Capillary Glucose 188 H 181 H 199 H 06/19/24 06/19/24 12:30 11:37 Puncture Site Right brachial ABG pH 7.456 H ABG pCO2 35.6 ABG pO2 81.9 ABG PO2/FiO2 Ratio 2.92 ABG HCO3 24.5 ABG O2 Saturation 96.6 ABG O2 Content 17.8 ABG Base Excess 1.0 A-a Gradient 75.7 Oxyhemoglobin 95.4 Total Hemoglobin 13.2 O2 Delivery Device Nasal cannula O2 Liters/Min 2.0 FiO2 28 POC Capillary Glucose 175 H Discharge Plan Discharge Attending physician on discharge: Aggie Henderson Consulting providers: Juanjo Esquivel Discharging Clinician: Aggie Henderson Anticipated Discharge Date/Time: 06/20/24 09:57 Patient Disposition: Home, Self-Care Activity: as tolerated Diet: as tolerated Patient Instructions: Antibiotic Form Patient Language: Bangladeshi Stand Alone Forms: General Discharge Information Follow-up/Referrals: Eryn,TWAN Azul [Primary Care Provider] - (F/u with PCP in 3-5 days ) Juanjo Esquivel MD [Physician] - (F/u with PCP in 3-5 days ) Discharge Medications: New aspirin 81 mg Tablet,Delayed Release (Dr/Ec) 81 mg PO QAM 30 Days Qty: 30 1RF levofloxacin 250 mg tablet 250 mg PO DAILY 5 Days Qty: 5 0RF atorvastatin 40 mg Tablet 40 mg PO DAILY 30 Days Qty: 30 1RF metronidazole 500 mg tablet 500 mg PO Q8H 5 Days Qty: 15 0RF Continued Januvia 100 mg tablet 100 mg PO DAILY Jardiance 10 mg tablet 10 mg PO DAILY amlodipine 10 mg Tablet 10 mg PO DAILY Qty: 30 1RF carvedilol [Coreg] 12.5 mg Tablet 12.5 mg PO Q12HR Qty: 30 1RF clonidine HCl 0.2 mg Tablet 0.2 mg PO Q12HR Qty: 30 1RF furosemide 20 mg Tablet 20 mg PO DAILY Qty: 30 0RF acetaminophen 325 mg Tablet 650 mg PO Q6HR Qty: 15 0RF hydrocodone-acetaminophen 5-325 mg Tablet 1 tablet PO Q4H PRN (Reason: Pain Rated 4-6) Qty: 20 0RF sennosides-docusate sodium [Senokot-S] 8.6-50 mg Tablet 2 tab PO BID Qty: 14 0RF Xarelto 10 mg Tablet 10 mg PO DAILY@1700 Qty: 30 0RF tramadol 50 mg Tablet 50 mg PO Q4H PRN (Reason: Pain Rated 1-3) Qty: 20 0RF glipizide 2.5 mg tablet extended release 24hr 2.5 mg PO DAILY omeprazole 40 mg capsule,delayed release(DR/EC) 40 mg PO DAILY Date of admission: 06/18/24 11:30 Primary Care Provider: ErynSonali Admitting Provider: Андрей Justice Attending physician on admission: Андрей Justice Condition: Stable
--- NOTE | 2024-06-20 10:49 | PC.NURSE ---
This RN printed discharge paperwork for assigned RN due to computer difficulty.
[2024-06-20 11:58] LABS: Glucose Point of Care 210 mg/dl (65-105)
[2024-06-20] MEDS: INSULIN ASPART (*BKC) 100 UNITS/ML SUB-Q (12:18)
--- NOTE | 2024-06-20 13:07 | PC.NURSE ---
Patient sent home with life alert necklace on. Sister, Cece Smith, called and this nurse explained discharge instructions to her. This nurse explained to Cece that the patient is not safe enough to transfer by car, and that the patient is unable to hold herself up at the edge of bed. Cece aware of this, ok with ambulance transfer to home. Care coordination to follow up tomorrow 06/21/24 about getting home health for the patient for home PT services.
--- OUTSIDE RECORDS SUMMARY | 2024-06-24 19:12 | XMS_ITS | CONTINUITY OF CARE DOCUMENT ---
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 Name Role Phone Enmanuel WONG, Josselin Barba Unavailable JONY LLOYD MD Unavailable [phone] VICTORIA VALERO PA-C Unavailable [phone] PROBLEMS Condition Status Date Provider Notes Cardiology examination active Josselin sharp MD CVA active Josselin Singer MD HTN essential active Josselin Singer MD Chest pain-type to be determined active Rick Singer MD PVD - unspecified active Josselin Gillette Tobacco abuse- hx of active Josselin de la o MD AMI subendocardial active Josselin Singer MD DM - type 2 active Josselin Singer MD Carotid artery stenosis - left active Shannon Singer MD ENCOUNTERS Date Type Provider Location Encounter Diag nosis - In-person encounter Office Visit Josselin Singer MD [facility] - In-person encounter Office Visit Josselin Singer MD [facility] - In-person encounter Office Visit Josselin Singer MD [facility] - In-person encounter Office Visit Josselin Singer MD [facility] - In-person encounter Office Visit Josselin Singer MD [facility] Carotid artery stenosis - left - In-person encounter Office Visit Josselin Singer MD [facility] CVAHTN essentialChest pain-type to be determinedPVD - unspecifiedTobacco abuse- hx ofAMI subendocardialDM - type 2 - In-person encounter Office Visit Josselin Singer MD [facility] Cardiology examination VITAL SIGNS Date Observation Value Provider Body Mass Index (Ratio) 25.06 kg/m2 Gina domi Sutton blood pressure, diastolic 120 mm[Hg] Deanna hlitonLognavid blood pressure, systolic 184 mm[Hg] Juanita Arellanonavid oxygen saturation, oximetry 94 % [facility] pulse rate 114 /min Rin Hercules respiratory rate E&M 12 /min Rin Hercules blood pressure, cuff size regular [facility], [facility] 120 mm[Hg] [facility], systolic 184 mm[Hg] Tab itha Hercules weight E&M 146 [lb_av] Rin Hercules height E&M 64 [in_i] Rin Hercules Body Mass Index (Ratio) 26.95 kg/m2 Savana Singer MD blood pressure, diastolic 111 mm[Hg] Deanna Broderick blood pressure, systolic 194 mm[Hg] Juanita Arellanoognavid blood pressure, diastolic 111 mm[Hg] Leslie Dash blood pressure, systolic 194 mm[Hg] Sudha Dash pulse rate 99 /min Marine Dash oxygen saturation, oximetry 98 % Marine Dash weight E&M 157 [lb_av] Marine Hardy blood pressure, cuff size large An aida Hardy height E&M 64 [in_i] Marine Hardy Body Mass Index (Ratio) 26.60 kg/m2 Savana Singer MD blood pressure, cuff size regular [facility] blood pressure, diastolic 138 mm[Hg] [facility] blood pressure, systolic 236 mm[Hg] [facility] oxygen saturation, oximetry 98 % [facility] pulse rate 114 /min [facility] respiratory rate E&M 16 /min [facility] weight E&M 155 [lb_av] [facility] height E&M 64 [in_i] [facility] Body Mass Index (Ratio) 25.57 kg/m2 Savana Singer MD blood pressure, diastolic 129 mm[Hg] Li nkLog blood pressure, systolic 202 mm[Hg] Juanita kLog blood pressure, diastolic 129 mm[Hg] Leslie parra Hardy blood pressure, systolic 202 mm[Hg] Sudha jairon Hardy oxygen saturation, oximetry 90 % Marinejairon Dash pulse rate 116 /min Marine Hardy weight E&M 149 [lb_av] Marine Hardy blood pressure, cuff size large An aida Hardy height E&M 64 [in_i] Marine Hardy Body Mass Index (Ratio) 25.40 kg/m2 Savana Singer MD blood pressure, diastolic 139 mm[Hg] Sh simran Abdalla blood pressure, systolic 220 mm[Hg] She derikedwardo Abdalla oxygen saturation, oximetry 96 % Ciara Abdalla weight E&M 148 [lb_av] Ciara Abdalla pulse rate 110 /min Ciara Abdalla respiratory rate E&M 20 /min Ciara Abdalla blood pressure, cuff size regular Sh simran Abdalla height E&M 64 [in_i] Ciara Abdalla Body Mass Index (Ratio) 25.57 kg/m2 Savana Singer MD blood pressure, diastolic 106 mm[Hg] Li nkLogic blood pressure, systolic 158 mm[Hg] Juanita kLogic blood pressure, cuff size regular Ja rret blood pressure, diastolic 106 mm[Hg] Ja rret blood pressure, systolic 158 mm[Hg] Jar ret oxygen saturation, oximetry 99 % Javi respiratory rate E&M 12 /min Javi pulse rate 85 /min Javi y weight E&M 149 [lb_av] Javi erda y height E&M 64 [in_i] Javi erda y Body Mass Index (Ratio) 25.40 kg/m2 Savana Singer MD blood pressure, cuff size regular Ke rri Gruenenfelder blood pressure, diastolic 110 mm[Hg] Ke rri Gruenenfelder blood pressure, systolic 210 mm[Hg] Elyse ri Cjnfelder pulse rate 90 /min Aparna Sol lder oxygen saturation, oximetry 99 % Aparna Chuodhury respiratory rate E&M 12 /min Aparna huitronelddaquan weight E&M 148 [lb_av] Aparna Sol lder height E&M 64 [in_i] Aparna Parisineoscar lder ALLERGIES Allergy Name Onset Date Reaction Criticality Status PCN High Criticality active HISTORY OF MEDICATION USE Medication Status Instructions Dates Provider Indications Com ments clonidine HCl 0.2 mg tablet active Aparna Macey Tradjenta 5 mg tablet active Aparna Macey isosorbide mononitrate 60 mg tablet extended release 24 hr active Aparna Macey losartan 100 mg tablet active Aparna Macey albuterol sulfate 90 mcg/actuation HFA aerosol inhaler active Aparna Shirleyer amlodipine 10 mg tablet active Aparna Macey omeprazole 40 mg capsule,delayed release(DR/EC) active Aparna Macey clopidogrel 75 mg tablet active Aparna Macey hydralazine 25 mg tablet active Aparna Macey SOCIAL HISTORY Date Observation Value Provider smoking/tobacco cess ation, patient education and counseling yes Josselin Singer MD number of years as a smoker 45 a Josselin Singer MD smoking history, tot al pack/day 1 ppd Josselin Singer MD cigarette use yes Josselin ferrari MD smoking status Current every day smoker S heber Singer MD number of years as a smoker 45 a Marine Dash smoking history, tot al pack/day 1 ppd Marine Dash cigarette use yes aMrine Dash smoking status Current every day smoker A cora Dash number of years as a smoker 45 a Tiffanie Hercules smoking history, tot al pack/day 1 ppd Tiffanie Hercules cigarette use yes Tiffanie Hercules smoking status Current every day smoker F paddy Hercules social history E&M S moking History: P atient currently smokes every day. Josselin Singer MD social history reviewed E&M revi ewed - no changes required Josselin Singer MD number of years as a smoker 45 a Marine Dash smoking history, tot al pack/day 1 ppd Marine Dash cigarette use yes Marine Dash smoking status Current every day smoker A cora Dash cigarette use yes Ciara Abdalla smoking status Current every day smoker Leslye Abdalla number of years as a smoker 45 a Aparna Wyattedwardnoé smoking history, tot al pack/day 1 ppd Aparna Choudhury cigarette use yes Aparna cannon smoking status Current every day smoker K deanne Wyattedwarddarlintiffdaquan FUNCTIONAL STATUS Date Observation Value Provider HRA, CV Assess/Plan, Angina (inactive) Management Plan continue current therapy Josselin Singer MD HRA, CV Assess/Plan, Angina (inactive) Management Plan continue current therapy Josselin Singer MD INSURANCE PROVIDERS Payer name Policy type / Coverage type Congress red constitution party ID [facility] Medicaid [id number] ADVANCE DIRECTIVES Name Date DISCUSSED - NO DECISION MADE TREATMENT PLAN Date Name Performer [id number],Alexis Espinoza ONCLUSIONS: 1 . Normal left ventricular systolic function. Normal left ventricular size. Mild concentric left ventricular hypertrophy. There is E to A wave reversal consistent with impaired LV relaxation. E/E': 14.3 Left ventricular ejection fraction is measured at 55 %. 2 . Normal right ventricular size. Normal right ventricular systolic function. 3 . Mild mitral annular calcification. Normal appearing mitral valve leaflets. Mild to moderate mitral valve regurgitation. 4 . Normal appearing tricuspid valve leaflets. There is mild tricuspid regurgitation. IVC is normal in size with normal r espiratory response. Estimated peak pulmonary artery systolic pressure is 34.0 mmHg. 5 . Pulmonic valve leaflets appear structurally normal. Elevated pulmonic valve velocities by Doppler. There is trace p hysiologic pulmonic valve regurgitation. Josselin Singer MD [id number],Jairon Espinoza pparently had a mild heart attack 10 years ago at [facility]. Josselin Singer MD [id number],Alexis Espinoza ONCLUSIONS: 1 . 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 2 . 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 3 . The right lower extremity graft appears to be placed from right common femoral artery to right popliteal artery. The graft i s patent demonstrating triphasic and biphasic waveforms. Josselin Singer MD [id number],Alexis Espinoza ONCLUSIONS: 1 . >70% stenosis of the left ICA (Near occlusion of mid to distal segment). PSV=5.80 m/s, ICA/CCA= 7.75. 2 . <50% stenosis of the right ICA. P [email or web address] CAROTID Josselin Singer MD [id number],Alexis Espinoza carotid US, prior right sided weakness. Needs to be on statin, check lipid profi February 02, 2023 N eeds to get a carotid CT angiogram done. March 10, 2023 N eeds to get CAT scan done Josselin Singer MD [id number],Alexis Espinoza carotid US, prior right sided weakness. Needs to be on statin, check lipid profi February 02, 2023 N eeds to get a carotid CT angiogram done. Josselin Singer MD [id number],Leslye Espinoza she has not taken her BP medicines. I offered to have her admitted to the hospital but she refuses B P today: 220/139 P rior BP: 158/106 (01/06/2023) Her updated medication list for this problem includes: Clonidine Hcl 0.2 Mg Tablet (Clonidine hcl) Losartan 100 Mg Tablet (Losartan) Amlodipine 10 Mg Tablet (Amlodipine) Hydralazine 25 Mg Tablet (Hydralazine) Josselin Singer MD [id number],Alexis Espinoza ONCLUSIONS: 1 . Normal left ventricular systolic function. Normal left ventricular size. Mild concentric left ventricular hypertrophy. There is E to A wave reversal consistent with impaired LV relaxation. E/E': 14.3 Left ventricular ejection fraction is measured at 55 %. 2 . Normal right ventricular size. Normal right ventricular systolic function. 3 . Mild mitral annular calcification. Normal appearing mitral valve leaflets. Mild to moderate mitral valve regurgitation. 4 . Normal appearing tricuspid valve leaflets. There is mild tricuspid regurgitation. IVC is normal in size with normal r espiratory response. Estimated peak pulmonary artery systolic pressure is 34.0 mmHg. 5 . Pulmonic valve leaflets appear structurally normal. Elevated pulmonic valve velocities by Doppler. There is trace p hysiologic pulmonic valve regurgitation. Josselin Singer MD [id number],Alexis Espinoza ONCLUSIONS: 1 . Normal sinus rhythm. Non-specific T wave abnormality. 2 . Normal Regadenoson ECG with no ischemic ST or T changes, following vasodilator stress. 3 . Normal left ventricle size. 4 . Left Ventricular Ejection Fraction is 52 % TID: 1.09. 5 . Normal myocardial perfusion imaging with no evidence of ischemia or scar. Josselin Singer MD [id number],Alexis Espinoza ONCLUSIONS: 1 . >70% stenosis of the left ICA (Near occlusion of mid to distal segment). PSV=5.80 m/s, ICA/CCA= 7.75. 2 . <50% stenosis of the right ICA. P [employer] [facility] CAROTID Study Dt:01-25-2023 Page 2 3 . Vertebral flow is antegrade bilaterally. 4 . Moderate stenosis of the left CCA, estimated 55% stenosis. February 02, 2023 W ill need to get a carotid CT angiogram done. Josselin Singer MD [id number],Alexis Espinoza ONCLUSIONS: 1 . 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 2 . 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 3 . The right lower extremity graft appears to be placed from right common femoral artery to right popliteal artery. The graft i s patent demonstrating triphasic and biphasic waveforms. Josselin Singer MD [id number],Alexis Espinoza carotid US, prior right sided weakness. Needs to be on statin, check lipid profi Josselin Singer MD [id number],Alexis Gavin echo, carotids US , and DANETTE. Needs a strss test, has unsteady gait, cannot walk on treadmill. Josselin Singer MD [id number],C, 1 ppd T he Patient was reencouraged to stop smoking. Josselin Singer MD [id number],C, H er updated medication list for this problem includes: Clonidine Hcl 0.2 Mg Tablet (Clonidine hcl) Losartan 100 Mg Tablet (Losartan) Amlodipine 10 Mg Tablet (Amlodipine) Hydralazine 25 Mg Tablet (Hydralazine) BP today: 158/106 P rior BP: 210/110 (12/20/2022) Josselin Singer MD [id number],C, A pparently had a mild heart attack 10 years ago at [facility]. 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 H er updated medication list for this problem includes: Tradjenta 5 Mg Tablet (Linagliptin) Losartan 100 Mg Tablet (Losartan) Josseiln Singer MD Cardiology:This visi t has been a part of the consistent, comprehensive, and ongoing management of the chronic medical condition(s) listed above for the patient. C ONCLUSIONS: 1 . 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 2 . 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 3 . The right lower extremity graft appears to be placed from right common femoral artery to right popliteal artery. The graft i s patent demonstrating triphasic and biphasic waveforms. Josselin Singer MD Cardiology:1/2 ppd T he Patient was reencouraged to stop smoking. Does not want patches T his visit has been a part of the consistent, comprehensive, and ongoing management of the chronic medical condition(s) listed above for the patient. Josselin Singer MD Cardiology:Being jax luated by neurosurgery for interntervention T his visit has been a part of the consistent, comprehensive, and ongoing management of the chronic medical condition(s) listed above for the patient. C ONCLUSIONS: 1 . >70% stenosis of the left ICA (Near occlusion of mid to distal segment). PSV=5.80 m/s, ICA/CCA= 7.75. 2 . <50% stenosis of the right ICA. Josselin Singer MD Cardiology: S he had problem with diabetic complications where she had a bypass partial toe amputation, right second digit. Her updated medication list for this problem includes: Tradjenta 5 Mg Tablet (Linagliptin) Losartan 100 Mg Tablet (Losartan) Josselin Singer MD Cardiology:She has b jc instructed to record home BP on a journal H er updated medication list for this problem includes: Clonidine Hcl 0.2 Mg Tablet (Clonidine hcl) Losartan 100 Mg Tablet (Losartan) Amlodipine 10 Mg Tablet (Amlodipine) Hydralazine 25 Mg Tablet (Hydralazine) T his visit has been a part of the consistent, comprehensive, and ongoing management of the chronic medical condition(s) listed above for the patient. B P today: 184/120 P rior BP: 194/111 (09/01/2023) Josselin Singer MD Cardiology:This visi t has been a part of the consistent, comprehensive, and ongoing management of the chronic medical condition(s) listed above for the patient. A pparently had a mild heart attack 10 years ago at [facility]. C ardiac cath 04/13/2022 C ardiovascular studies summary: C ardiac Cath: 1 The coronary circulation is right dominant. LAD: Ostial lesion: There is a 50% stenosis. Mid-vessel lesion: There is a 50% stenosis. I st diagonal: Proximal v essel lesion: There is 50% stenosis. Left circumflex: Mid-vessel lesion: There is a 35% s tenosis. Right coronary: Mid-vessel lesion: There is a 60% stenosis. M arch 2023 E chocardiogram from 08/01/2023 CONCLUSIONS: N ormal left ventricular size. Normal left ventricular systolic function with no focal w all motion abnormalities. Mild concentric left ventricular hypertrophy. Ejection f raction is measured at 71 %. M ild mitral annular calcification. Mild mitral valve regurgitation. N ormal structure of the tricuspid valve. Normal right ventricular systolic pressure. Mild t ricuspid regurgitation Josselin Singer MD Cardiology: A pparently had a mild heart attack 10 years ago at [facility]. September 01, 2023 E chocardiogram from 08/01/2023 CONCLUSIONS: N ormal left ventricular size. Normal left ventricular systolic function with no focal w all motion abnormalities. Mild concentric left ventricular hypertrophy. Ejection f raction is measured at 71 %. M ild mitral annular calcification. Mild mitral valve regurgitation. N ormal structure of the tricuspid valve. Normal right ventricular systolic pressure. Mild t ricuspid regurgitation Josselin Singer MD Cardiology: 1 ppd T he Patient was reencouraged to stop smoking. Josselin Singer MD Cardiology: C heck carotid US, prior right sided weakness. Needs to be on statin, check lipid profi February 02, 2023 N eeds to get a carotid CT angiogram done. March 10, 2023 N eeds to get CAT scan done September 01, 2023 h ad hospitaliation at [facility] with w/u done and had good bp control there V ascular disease - M RI and possible angio per neurosurgery saw Dr. Portillo in consultation she was unable to complete the CT s can yesterday - U ltrasound of the carotids was done this morningThere is less than 50% stenosis noted in the right internal c arotid artery.There is 80-99% stenosis noted in the left internal carotid artery with marked spectral broadening o f the waveform Josselin Singer MD Cardiology:says she is taking meds but not on a routine schedule H er updated medication list for this problem includes: Josselin Singer MD Cardiology: C ONCLUSIONS: 1 . Normal left ventricular systolic function. Normal left ventricular size. Mild concentric left ventricular hypertrophy. There is E to A wave reversal consistent with impaired LV relaxation. E/E': 14.3 Left ventricular ejection fraction is measured at 55 %. 2 . Normal right ventricular size. Normal right ventricular systolic function. 3 . Mild mitral annular calcification. Normal appearing mitral valve leaflets. Mild to moderate mitral valve regurgitation. 4 . Normal appearing tricuspid valve leaflets. There is mild tricuspid regurgitation. IVC is normal in size with normal r espiratory response. Estimated peak pulmonary artery systolic pressure is 34.0 mmHg. 5 . Pulmonic valve leaflets appear structurally normal. Elevated pulmonic valve velocities by Doppler. There is trace p hysiologic pulmonic valve regurgitation. Josselin Singer MD Cardiology: A wayneently had a mild heart attack 10 years ago at [facility]. Josselin Singer MD Cardiology: C ONCLUSIONS: 1 . 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 2 . 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 3 . The right lower extremity graft appears to be placed from right common femoral artery to right popliteal artery. The graft i s patent demonstrating triphasic and biphasic waveforms. Josselin Singer MD Cardiology: C ONCLUSIONS: 1 . >70% stenosis of the left ICA (Near occlusion of mid to distal segment). PSV=5.80 m/s, ICA/CCA= 7.75. 2 . <50% stenosis of the right ICA. P [email or web address] CAROTID Josselin Singer MD Cardiology: Alexis milan carotid US, prior right sided weakness. Needs to be on statin, check lipid profi February 02, 2023 N eeds to get a carotid CT angiogram done. March 10, 2023 N eeds to get CAT scan done Josselin Singer MD Cardiology: Alexis milan carotid US, prior right sided weakness. Needs to be on statin, check lipid profi February 02, 2023 N eeds to get a carotid CT angiogram done. Josselin Singer MD Cardiology:Says she has not taken her BP medicines. I offered to have her admitted to the hospital but she refuses B P today: 220/139 P rior BP: 158/106 (01/06/2023) Her updated medication list for this problem includes: Clonidine Hcl 0.2 Mg Tablet (Clonidine hcl) Losartan 100 Mg Tablet (Losartan) Amlodipine 10 Mg Tablet (Amlodipine) Hydralazine 25 Mg Tablet (Hydralazine) Josselin Singer MD Cardiology:CONCLUSIO NS: 1 . Normal left ventricular systolic function. Normal left ventricular size. Mild concentric left ventricular hypertrophy. There is E to A wave reversal consistent with impaired LV relaxation. E/E': 14.3 Left ventricular ejection fraction is measured at 55 %. 2 . Normal right ventricular size. Normal right ventricular systolic function. 3 . Mild mitral annular calcification. Normal appearing mitral valve leaflets. Mild to moderate mitral valve regurgitation. 4 . Normal appearing tricuspid valve leaflets. There is mild tricuspid regurgitation. IVC is normal in size with normal r espiratory response. Estimated peak pulmonary artery systolic pressure is 34.0 mmHg. 5 . Pulmonic valve leaflets appear structurally normal. Elevated pulmonic valve velocities by Doppler. There is trace p hysiologic pulmonic valve regurgitation. Josselin Singer MD Cardiology:CONCLUSIO NS: 1 . Normal sinus rhythm. Non-specific T wave abnormality. 2 . Normal Regadenoson ECG with no ischemic ST or T changes, following vasodilator stress. 3 . Normal left ventricle size. 4 . Left Ventricular Ejection Fraction is 52 % TID: 1.09. 5 . Normal myocardial perfusion imaging with no evidence of ischemia or scar. Josselin Singer MD Cardiology:CONCLUSIO NS: 1 . >70% stenosis of the left ICA (Near occlusion of mid to distal segment). PSV=5.80 m/s, ICA/CCA= 7.75. 2 . <50% stenosis of the right ICA. P [email or web address] CAROTID Study Dt:01-25-2023 Page 2 3 . Vertebral flow is antegrade bilaterally. 4 . Moderate stenosis of the left CCA, estimated 55% stenosis. February 02, 2023 W ill need to get a carotid CT angiogram done. Josselin Singer MD Cardiology:CONCLUSIO NS: 1 . 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 2 . 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 3 . The right lower extremity graft appears to be placed from right common femoral artery to right popliteal artery. The graft i s patent demonstrating triphasic and biphasic waveforms. Josselin Singer MD Cardiology: Alexis milan carotid US, prior right sided weakness. Needs to be on statin, check lipid profi Josselin Singer MD Cardiology: Alexis milan echo, carotids US , and DANETTE. Needs a strss test, has unsteady gait, cannot walk on treadmill. Josselin Singer MD Cardiology: 1 ppd T he Patient was reencouraged to stop smoking. Josselin Singer MD Cardiology: H er updated medication list for this problem includes: Clonidine Hcl 0.2 Mg Tablet (Clonidine hcl) Losartan 100 Mg Tablet (Losartan) Amlodipine 10 Mg Tablet (Amlodipine) Hydralazine 25 Mg Tablet (Hydralazine) BP today: 158/106 P rior BP: 210/110 (12/20/2022) Josselin Singer MD Cardiology: Jairon blackently had a mild heart attack 10 years ago at [facility]. Josselin Singer MD Cardiology: S he had problem with diabetic complications where she had a bypass partial toe amputation, right second digit. H er updated medication list for this problem includes: Tradjenta 5 Mg Tablet (Linagliptin) Losartan 100 Mg Tablet (Losartan) Josselin Singer MD Date Name CT Head without cont rast CT Angio, Carotids MRI, Spine: Lumbar w ithout contrast EKG CT Angio, Carotids Stress Regadenoson HEMOGLOBIN A1c LIPID PANEL COMPREHENSIVE METABO LIC PANEL, W/EGFR Arterial Duplex Bi-L ower EX Carotid Duplex Bilat eral Complete Echo 12370 Minor 10-19min HISTORY OF PROCEDURES Procedure Date Procedure Name Provider Procedure Notes S tatus Complex e/m visit add on Josselin Singer MD completed EKG Josselin Singer MD compl eted EKG Josselin Singer MD compl eted EKG Josselin Singer MD compl eted EKG Josselin Singer MD compl eted
== END 2024-06-20 12:50 | disposition home or self-care (01) | DRG 64 ==
LOC: ANHED 16:45 → ANH2MED 17:00
PROVIDERS: Family Medicine; Nurse Practitioner Gerontology; Admitting Provider General Practice; Emergency Provider Emergency Medicine; PCP Physician Assistant; Visit Provider Internal Medicine
DX: I63.9 Cerebral infarction, unspecified (principal); J69.0 Pneumonitis due to inhalation of food and vomit; G81.01 Flaccid hemiplegia affecting right dominant side; I69.354 Hemiplegia and hemiparesis following cerebral infarction affecting left non-dominant side; I13.0 Hypertensive heart and chronic kidney disease with heart failure and stage 1 through stage 4 chronic kidney disease, or unspecified chronic kidney disease; I50.32 Chronic diastolic (congestive) heart failure; I69.320 Aphasia following cerebral infarction; E11.22 Type 2 diabetes mellitus with diabetic chronic kidney disease; N18.9 Chronic kidney disease, unspecified; E11.65 Type 2 diabetes mellitus with hyperglycemia; R09.02 Hypoxemia; R33.9 Retention of urine, unspecified; F17.210 Nicotine dependence, cigarettes, uncomplicated; R29.716 NIHSS score 16; Z99.3 Dependence on wheelchair; Z85.3 Personal history of malignant neoplasm of breast; Z91.148 Patient's other noncompliance with medication regimen for other reason
CPT/HCPCS: 36415; 36600; 70450; 70496; 70498; 71045; 73502; 80053; 82375; 82805; 82948; 83050; 84484; 85018; 85025; 85610; 85730; 92611; 93005; 96374; 97110; 97161; 97166; 97530; 99212; 99285; A9270; G0378; G0463; J1815; J1940; J1956; Q9967

== ENCOUNTER 2024-07-02 15:51 | Observation (INO) | payer BC, SELFPAY ==
[2024-07-02] VITALS (15 sets, daily range): BP systolic 120–179; BP diastolic 62–95; PULSE 56–73; RESP 11–18; TEMP 36.5–36.8; O2SAT 96–100
--- NOTE | ~2024-07-02 | CT_ITS ---
EXAMINATION: CT brain wo con DATE: 07/02/2024 17:00 INDICATION: Stroke. TECHNIQUE: Computed tomography (CT) of the head was performed without intravenous contrast. The mA wa s adjusted according to patient size. Iterative reconstruction technique was employed. The dose-lengt h product was 681.00 mGy-cm. COMPARISON: Head CT 06/17/2024 FINDINGS: There is an old infarct involving the left frontal, temporal, and parietal lobes, left insu la, left basal ganglia, left internal capsule, and left thalamus in the expected distribution of left middle cerebral artery. There is an infarct in the right parietal occipital region. There are scatte red areas of low attenuation in the cerebral white matter. There is no intracranial hemorrhage, acute infarction, or abnormal intracranial mass lesion. There is mild ex vacuo dilatation of left lateral ventricle. The orbits are normal. There is mild mucosal thickening in the ethmoid sinuses. The mastoi d air cells are normal. IMPRESSION: 1. Infarct again seen in the right parietal occipital region, likely subacute. 2. 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 3. Stable extensive nonspecific cerebral white matter disease, which likely represents chronic small vessel ischemic disease. Reviewed, dictated and finalized at location A. UCTION ASSEMBLY OPERATOR IMPRESSION: 1. Infarct again seen in the right parietal occipital region, likely subacute. 2. Large old infarct in the expected distribution of left middle cerebral arter y. 3. Stable extensive nonspecific cerebral white matter disease, which likely rep resents chronic small vessel ischemic disease.
--- NOTE | ~2024-07-02 | XR_ITS ---
CHEST RADIOGRAPH CLINICAL HISTORY: pneumonia f/u . COMPARISON: 06/17/2024 TECHNIQUE: Single portable view of the chest. FINDINGS Right atrial enlargement, unchanged. The remainder of the cardiomediastinal silhouette is otherwise unremarkable. Redemonstration of mild airspace opacities in the left lower lung zone although not as prominent on t chelsea's examination as on previous study. The remainder of the lungs are clear. IMPRESSION: Improved aeration of the bilateral lung king, without focal infiltrate or effusion. Reviewed, dictated and finalized at location A. NG SUPERVISOR IMPRESSION: Improved aeration of the bilateral lung king, without focal infiltrate or eff usion.
--- NOTE | 2024-07-02 15:59 | ECG_ITS ---
Test Date: 2024-07-02 16:21:13 Measurements Intervals [place] Rate: 60 P: 60 ID: [id number] QRS: -16 QRSD: 96 T: 143 QT: 434 QTc: 436 Interpretive Statements SINUS RHYTHM ST DEVIATION AND MODERATE T-WAVE ABNORMALITY, CONSIDER ANTEROLATERAL ISCHEMIA [-0.1+ mV T WAVE IN V3-V6] Compared to ECG 06/17/2024 12:49:32 NO SIGNIFICANT CHANGES Electronically Signed On 07-04-2024 17:05:13 WEIGH TANK OPERATOR by Dorothea Salazar M.D.
[2024-07-02 16:16] LABS: Glucose Point of Care 98 mg/dl (65-105)
--- NOTE | 2024-07-02 16:16 | ED.NEUROSD ---
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 Patient also has residual word-finding difficulty and is a poor historian secondary to this. She is currently on Xarelto and in addition to aspirin Lipitor for her previous stroke. Patient presents to the emergency department today for evaluation of more generalized weakness and her family is concerned that she might have had a new stroke versus a urinary tract infection versus pneumonia as she was just discharged in completed a course oral antibiotics for pneumonia. Patient herself appears at her baseline mentation is very pleasant and cooperative but is difficult to speak with secondary to her speech deficits. She has flaccid right-sided hemiparesis which is not new. No new obvious focal neurological complaints or deficits. Patient denies any pain or headache. No obvious and overt signs of trauma. She does have a sacral wound which her family states is improving. Related Data Home Medications ?Medication ?Instructions ?Recorded ?Confirmed ?Last Taken ?Type omeprazole 40 mg capsule,delayed 40 mg PO DAILY 11/15/21 06/17/24 Unknown History release empagliflozin 10 mg tablet 10 mg PO DAILY 02/24/24 06/17/24 Unknown History (Jardiance) sitagliptin phosphate 100 mg 100 mg PO DAILY 02/24/24 06/17/24 Unknown History tablet (Januvia) glipizide 2.5 mg tablet, extended 2.5 mg PO DAILY 06/17/24 06/17/24 Unknown History release 24 hr Allergies Allergy/AdvReac Type Severity Reaction Status Date / Time insulin glargine Allergy Severe Swelling Verified 04/19/24 11:14 amoxicillin Allergy Unknown Unknown Verified 04/19/24 11:14 cephalexin Allergy Unknown Unknown Verified 04/19/24 11:14 doxycycline Allergy Unknown Itching Verified 04/19/24 11:14 latex Allergy Unknown Unknown Verified 04/19/24 11:14 Penicillins Allergy Unknown Unknown Verified 04/19/24 11:14 sulfamethoxazole Allergy Unknown Swelling Verified 04/19/24 11:14 sumatriptan Allergy Unknown Unknown Verified 04/19/24 11:14 trazodone Allergy Unknown Swelling Verified 04/19/24 11:14 trimethoprim Allergy Unknown Swelling Verified 04/19/24 11:14 clindamycin Allergy Unknown Verified 04/19/24 11:14 Review of Systems Review of Systems: ROS unobtainable: Yes unobtainable due to medical condition and unobtainable due to mental status PMFSH Past Medical History Medical History Breast cancer Cognitive impairment Chronic kidney disease Hypertension Cerebrovascular accident Residual right-sided weakness and expressive aphasia. Type 2 diabetes mellitus Kidney stone Surgical History Surgical History History of hip surgery No pertinent past surgical history Family History Family History Mother Pulmonary embolism Other Unknown family medical history Social History Social History Social History: Surrogate medical decision maker: Son Jeyson Ibanez who lives in [place]. She does not want her sister making decisions for her. Code status: Full code. Smoking packs per day: 1 Smoking cigarettes per day: 20.0 Years smoked: 40 Smoking pack-years: 40.00 Smoking status: Former smoker Tobacco type: cigarettes Alcohol intake: never Substance use: never Substance use type: does not use Do You Feel Safe in your Home?: Yes Lack of Transportation: No Lack of Food: Never True Current Housing: I Have Housing Concerned About Future Housing: No Difficulty Paying Gas/Electric Bills: No Difficulty Paying for Meds: No Currently Unemployed: No Education: High School Diploma/GED Difficulty w/ Childcare or Family Care: No Spiritual care concerns: No Exam Narrative: GENERAL: Chronically ill-appearing but not in any acute distress HEAD: [Normocephalic, atraumatic.] EYES: [PERRLA and EOMI.] ENT: Nares clear, no rhinorrhea or epistaxis. Mucous membranes moist. NECK: Supple. CHEST: [Clear to auscultation. No respiratory distress.] HEART: [Regular rate and rhythm]. No murmur heard. [Normal peripheral pulses.] ABDOMEN: [Soft, nondistended], [nontender], [No rigidity or guarding] EXTREMITIES: Right-sided flaccid paralysis, chronic, no extremity edema SKIN: Sacral wound stage IV, no active infection, erythema or tenderness otherwise warm and dry extremities. NEURO: Right-sided flaccid paralysis of the right arm and leg, left-sided residual weakness but there is jaxon and movement. Moderate expressive aphasia again also chronic, no slurring of her speech. Alert oriented to her name and location. PSYCH: [Normal mood and affect.] Course Vital Signs Vital signs: Vital Signs Temperature 36.8 C 07/02/24 16:01 Pulse Rate 73 07/02/24 16:01 Respiratory Rate 16 07/02/24 16:01 Blood Pressure 123/80 07/02/24 16:01 Pulse Oximetry 98 07/02/24 16:01 Oxygen Delivery Room Air 07/02/24 16:01 Temperature 36.8 C 07/02/24 16:01 Pulse Rate 58 L 07/02/24 20:18 Respiratory Rate 18 07/02/24 20:18 Blood Pressure 174/91 H 07/02/24 20:18 Pulse Oximetry 99 07/02/24 20:18 Oxygen Delivery Room Air 07/02/24 16:01 MDM - Neuro Symptoms/Deficit MDM Narrative Medical decision making narrative: 64-year-old female with a history of multiple strokes most recently admitted to this hospital at the end of last year with a large MCA stroke with residual right-sided flaccid paralysis. She has chronic left-sided weakness as well from previous strokes. Patient is also having moderate expressive aphasia from her previous deficits. Patient presents to the emergency department via EMS. Family was contacted and they stated that patient has not been acting right and more weak than normal. Not able to provide me a clear articular bowl history and patient's family is a poor historian. Patient not able to provide salient details secondary to her word-finding difficulties and expressive aphasia chronically. No obvious or new focal deficits and based on previous EMR reviewed she has had chronic right-sided flaccid paralysis since her discharge. Still flaccid on the right upper extremity and right lower extremity, word-finding difficulties. Chronic. No deficits that are new on the left side or facial asymmetries. Family is concerned that she may have had a new stroke or pneumonia or urinary infection. She has just completed a course of antibiotics for her pneumonia from her recent hospital admission. 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 Given basic extensive past medical history including multiple strokes on Xarelto and recent infections a workup was ordered including a CT head, urinalysis, chest x-ray, EKG, electrolyte panel, CMP. Urinalysis with straight catheterization obtain. Patient is pleasant and cooperative and not any acute distress and has normal reassuring vital signs without any hypoxia, tachycardia, fever or blood pressure concerns. No leukocytosis or anemia. No low platelets. Electrolyte panel largely within normal limits, normal renal function panel, normal glucose and hepatic function panel. Urinalysis pending. Head CT shows redemonstrated right occipital parietal area infarct subacute at this time, large old infarct in the MCA distribution left-sided as well as extensive cerebral white matter disease that is chronic. Chest x-ray shows improvement in aeration and resolution of her pneumonia. I spoke to patient's power of teacher specialist and healthcare proxy Cece over the phone. They are concerned that patient would require rehabilitation and even snf placement secondary to her debility and no one is available to take care of her at the house at this time. Urinalysis is pending and then I will talk to the hospitalist team for admission, physical therapy, occupational therapy and rehabilitation considerations. Urinalysis shows yeast and urinary tract infection signs. Will treat her for both bacterial and fungal infections at this time. She was given fluconazole and pharmacy to assist with antibiotic choice regarding patient's multiple allergies. Initially it shows tobramycin however she recommended for quinolone at this time and so ciprofloxacin was ordered. Discussed the case with the on-call mid-level currently covering the hospitalist service. We went over patient's imaging studies, clinical assessment, plan of care and family discussions with me for potential placement and rehabilitation as well as treatment of her urinary tract infection. Patient was accepted to a hospital [facility] bed at this time as an observation admission. Medical Records Attestation: I reviewed the patient's medical records. Lab Data Attestation: I reviewed the patient's lab results. 07/02/24 16:27 07/02/24 16:27 Labs: Lab Results 07/02/24 07/02/24 07/02/24 Range/Units 16:13 16:27 17:36 WBC 9.3 (4.5-10.0) K/mm3 RBC 4.84 (4.2-5.4) M/mm3 Hgb 12.4 (12.0-15.0) g/dL Hct 40.0 (37.0-47.0) % MCV 82.6 (80-100) fl MCH 25.6 L (26-34) pg MCHC 31.0 L (32-36) g/dl RDW 14.6 H (11.5-14.5) % Plt Count 490 H (150-375) k/mm3 MPV 9.8 (7.4-10.4) fl Immature Gran % (Auto) 0.3 (0-0.5) % Neut % (Auto) 55.5 (45.5-73.1) % Lymph % (Auto) 37.7 (18.3-44.2) % [place] % (Auto) 5.8 (2.6-8.5) % Eos % (Auto) 0.2 (0-4.4) % Baso % (Auto) 0.5 (0.2-1.2) % Lymph # (Auto) 3.50 H (0.9-3.2) K/mm3 [place] # (Auto) 0.5 (0.1-0.6) K/mm3 Eos # (Auto) 0.0 (0-0.3) K/mm3 Baso # (Auto) 0.1 (0.0-0.1) K/mm3 Abs Immat Gran (auto) 0.03 (0.00-0.031) K/mm3 Absolute Neuts (auto) 5.2 (1.3-6.7) K/mm3 Absolute Nucleated RBC 0.000 (0.0-0.012) K/mm3 Nucleated RBC % 0.0 (0.0-0.2) % Sodium 144 (137-145) mmol/L Potassium 3.5 (3.4-5.0) mmol/L Chloride 110 H (98-107) mmol/L Carbon Dioxide 30 (22-30) mmol/L Anion Gap 4 (4-12) mmol/L BUN 21 H (7-17) mg/dL Creatinine 0.87 (0.7-1.0) mg/dL Estim Creat Clear Calc Not Reportable Estimated GFR > 60 (59 - ) Glucose 104 (65-110) mg/dL POC Capillary Glucose 98 (65-105) mg/dl Calcium 8.8 (8.4-10.2) mg/dL Total Bilirubin 0.5 (0.2-1.3) mg/dL AST 35 (14-36) U/L ALT 11 (6-35) U/L Alkaline Phosphatase 91 (38-126) U/L Total Protein 8.0 (6.3-8.2) g/dL Albumin 3.5 (3.5-5.1) g/dL Urine Color Yellow (Yellow) Urine Appearance Turbid H (Clear) Urine pH 5.5 (5.0-9.0) Ur Specific [place] 1.016 (1.001-1.035) Urine Protein 1+ H (Negative) mg/dL Urine Glucose (UA) 3+ H (Negative) mg/dL Urine Ketones Negative (Negative) mg/dL Ur Blood (Man) 2+ H (Negative) Urine Nitrate Negative (Negative) Urine Bilirubin Negative (Negative) Urine Urobilinogen 0.2 (<2.0) mg/dL Leukocyte Esterase Rfl 3+ H (Negative) CALVIN/UL Urine RBC 11-20 H (0-2) /hpf Urine WBC >100 H (0-3) /hpf Ur Squamous Epith Cells Occasional (Few) /hpf Urine Bacteria Rare /hpf Urine Casts 3-5 Urine Yeast (Budding) Present H (None) /hpf Imaging Data Attestation: I personally reviewed and interpreted this imaging study as follows: My impression: Impressions Head CT 07/02/24 17:11 IMPRESSION: 1. Infarct again seen in the right parietal occipital region, likely subacute. 2. 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 3. Stable extensive nonspecific cerebral white matter disease, which likely represents chronic small vessel ischemic disease. Chest X-Ray 07/02/24 17:14 IMPRESSION: Improved aeration of the bilateral lung king, without focal infiltrate or effusion. Discharge Plan Discharge Clinical Impression: Urinary tract infection, History of stroke, Hemiplegia, Debility, Expressive aphasia Patient Disposition: Still a Patient Condition: Stable Time of Disposition: 21:00
[2024-07-02 16:33] LABS: Basophils Absolute Auto 0.1 K/mm3 (0.0-0.1); Basophils Percent Auto 0.5 % (0.2-1.2); Eosinophils Percent Auto 0.2 % (0-4.4); Hemoglobin 12.4 g/dL (12.0-15.0); Immature Granulocyte Absolute 0.03 K/mm3 (0.00-0.031); Immature Granulocyte Percent A 0.3 % (0-0.5); Lymphocytes Percent Auto 37.7 % (18.3-44.2); Mean Corpuscular Hemoglobin 25.6 pg (26-34); Mean Corpuscular Volume 82.6 fl (80-100); Mean Platelet Volume 9.8 fl (7.4-10.4); Monocytes Absolute Auto 0.5 K/mm3 (0.1-0.6); Monocytes Percent Auto 5.8 % (2.6-8.5); Neutrophils Absolute Auto 5.2 K/mm3 (1.3-6.7); Neutrophils Percent Auto 55.5 % (45.5-73.1); Platelet Count Result 490 k/mm3 (150-375); Red Blood Count 4.84 M/mm3 (4.2-5.4); Red Cell Distribution Width 14.6 % (11.5-14.5); White Blood Count 9.3 K/mm3 (4.5-10.0)
[2024-07-02 16:43] LABS: Alanine Aminotransferase 11 U/L (6-35); Albumin Level 3.5 g/dL (3.5-5.1); Alkaline Phosphatase 91 U/L (38-126); Anion Gap 4 mmol/L (4-12); Aspartate Amino Transferase 35 U/L (14-36); Bilirubin,Total 0.5 mg/dL (0.2-1.3); Blood Urea Nitrogen 21 mg/dL (7-17); Calcium 8.8 mg/dL (8.4-10.2); Carbon Dioxide 30 mmol/L (22-30); Chloride 110 mmol/L (98-107); Estimated Glomerular Filt Rate > 60; Glucose 104 mg/dL (65-110); Potassium 3.5 mmol/L (3.4-5.0); Sodium 144 mmol/L (137-145)
[2024-07-02 18:09] LABS: Add Urine Microscopic? YES; Appearance Urine Turbid (Clear); Bacteria Urine Rare /hpf; Bilirubin Urine Negative (Negative); Blood Urine 2+ (Negative); Budding Yeast Urine Present /hpf; Color Urine Yellow (Yellow); Glucose Urine UA 3+ mg/dL (Negative); Ketones Urine Negative (Negative); Leukocyte Esterase Ur 3+ LEU/UL (Negative); Nitrate Urine Negative (Negative); Protein Urine 1+ mg/dL (Negative); Specific Grav Ur 1.016 (1.001-1.035); Squamous Epithelial Cell Urine Occasional /hpf (Few); Urobilinogen Urine 0.2 mg/dL (<2.0); WBC Urine >100 /hpf (0-3); pH Urine 5.5 (5.0-9.0)
[2024-07-02] MEDS: FLUCONAZOLE 100 MG TABLET 200 MG PO (19:49)
[2024-07-02] MEDS: CIPROFLOXACIN 400 MG/D5W 200ML 200 ML 200 MG IVPB (19:52)
--- NOTE | 2024-07-02 22:45 | ADMGEN ---
This patient, Adalgisa Tirado, was admitted to 3 Med Surg Room 324-01. Patient/family oriented to hospital policies and general routines including ID bracelet, bed and alarms, visiting hours, pain management, procedures, bathroom and other care routines, personal items, smoking policy, room service/diet, and visiting hours. Information on how to activate the Rapid Response Team has been discussed. Patient/Family are encouraged to report perceived risks to care and to ask questions if they do not understand what they are told or what they should do.
[2024-07-03 06:00] VITALS: BP 135/62; PULSE 56; RESP 20; TEMP 36.4; O2SAT 98
[2024-07-03 08:20] LABS: Glucose Point of Care 88 mg/dl (65-105)
[2024-07-03 09:03] LABS: Basophils Absolute Auto 0.1 K/mm3 (0.0-0.1); Basophils Percent Auto 0.5 % (0.2-1.2); Eosinophils Percent Auto 0.4 % (0-4.4); Hematocrit 39.1 % (37.0-47.0); Hemoglobin 12.1 g/dL (12.0-15.0); Immature Granulocyte Absolute 0.04 K/mm3 (0.00-0.031); Immature Granulocyte Percent A 0.4 % (0-0.5); Lymphocytes Absolute Auto 3.66 K/mm3 (0.9-3.2); Mean Corpuscular HGB Conc 30.9 g/dl (32-36); Mean Corpuscular Hemoglobin 25.3 pg (26-34); Mean Corpuscular Volume 81.6 fl (80-100); Mean Platelet Volume 9.8 fl (7.4-10.4); Monocytes Absolute Auto 0.6 K/mm3 (0.1-0.6); Monocytes Percent Auto 5.8 % (2.6-8.5); Neutrophils Absolute Auto 5.5 K/mm3 (1.3-6.7); Neutrophils Percent Auto 55.9 % (45.5-73.1); Platelet Count Result 445 k/mm3 (150-375); Red Blood Count 4.79 M/mm3 (4.2-5.4); Red Cell Distribution Width 14.4 % (11.5-14.5); White Blood Count 9.9 K/mm3 (4.5-10.0)
[2024-07-03 09:13] LABS: Alanine Aminotransferase 12 U/L (6-35); Albumin Level 3.4 g/dL (3.5-5.1); Alkaline Phosphatase 90 U/L (38-126); Anion Gap 3 mmol/L (4-12); Aspartate Amino Transferase 29 U/L (14-36); Bilirubin,Total 0.5 mg/dL (0.2-1.3); Blood Urea Nitrogen 18 mg/dL (7-17); Calcium 8.8 mg/dL (8.4-10.2); Carbon Dioxide 30 mmol/L (22-30); Chloride 106 mmol/L (98-107); Estimated CRCL calculation 50 ml/min; Estimated Glomerular Filt Rate > 60; Glucose 91 mg/dL (65-110); Magnesium 1.9 mg/dL (1.6-2.3); Potassium 3.7 mmol/L (3.4-5.0); Sodium 139 mmol/L (137-145)
[2024-07-03 09:50] VITALS: PULSE 57
[2024-07-03] MEDS: SENNA/DOCUSATE SODIUM TABLET 2 TAB PO ×2 (09:50→17:38)
[2024-07-03] MEDS: amLODIPine BESYLATE 10 MG TABLET PO (09:50)
[2024-07-03] MEDS: ASPIRIN 81 MG ENTERIC TABLET PO (09:50)
[2024-07-03] MEDS: carvediloL 12.5 MG TABLET PO ×2 (09:50→20:51)
[2024-07-03] MEDS: ATORVASTATIN 40 MG TABLET PO (09:50)
[2024-07-03] MEDS: PANTOPRAZOLE 40 MG TABLET PO ×2 (09:50→20:51)
[2024-07-03 09:51] VITALS: BP 142/68; PULSE 57; O2SAT 98
[2024-07-03] MEDS: FLUCONAZOLE 100 MG TABLET 200 MG PO (09:51)
--- NOTE | 2024-07-03 10:29 | P.HP_ITS ---
H&P: HPI History of Present Illness Date/Time: 07/03/24 10:29 Chief Complaint: Right sided weakness for 24 hours. 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 Patient also has residual word-finding difficulty and is a poor historian secondary to this. She is currently on Xarelto and in addition to aspirin Lipitor for her previous stroke. Patient presents to the emergency department today for evaluation of more generalized weakness and her family is concerned that she might have had a new stroke versus a urinary tract infection versus pneumonia as she was just discharged in completed a course oral antibiotics for pneumonia. Patient oriented to self. Patient appears to be at baseline mentation. Not a good historian. Per ER flaccid right-sided hemiparesis which is not new. No new obvious focal neurological complaints or deficits. She does have a sacral wound which her family states is improving. WBC normal. Urine turbid, 1+ protein, 3+ glucose, 2+ blood, 3+ leukocyte, RBC 11-20, and WBC >100. Head CT: IMPRESSION: 1. Infarct again seen in the right parietal occipital region, likely subacute. 2. 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 3. Stable extensive nonspecific cerebral white matter disease, which likely represents chronic small vessel ischemic disease. Chest X-ray: Improved aeration of the bilateral lung king, without focal infiltrate or effusion. Review of Systems Review of Systems: All systems reviewed & are unremarkable except as noted in HPI and below PMFSH Past Medical History Medical History Breast cancer Cognitive impairment Chronic kidney disease Hypertension Cerebrovascular accident Residual right-sided weakness and expressive aphasia. Type 2 diabetes mellitus Kidney stone Surgical History Surgical History History of hip surgery No pertinent past surgical history Family History Family History Mother Pulmonary embolism Other Unknown family medical history Social History Social History Social History: Surrogate medical decision maker: Son Jeyson Ibanez who lives in [place]. She does not want her sister making decisions for her. Code status: Full code. Smoking packs per day: 1 Smoking cigarettes per day: 20.0 Years smoked: 40 Smoking pack-years: 40.00 Smoking status: Former smoker Tobacco type: cigarettes Alcohol intake: never Substance use: never Substance use type: does not use Do You Feel Safe in your Home?: No Lack of Transportation: No Lack of Food: Never True Current Housing: I Have Housing Concerned About Future Housing: No Difficulty Paying Gas/Electric Bills: No Difficulty Paying for Meds: No Currently Unemployed: No Education: High School Diploma/GED Difficulty w/ Childcare or Family Care: No Spiritual care concerns: No Meds Home Medications and Allergies Home Medications ?Medication ?Instructions ?Recorded ?Confirmed ?Type omeprazole 40 mg capsule,delayed 40 mg PO DAILY 11/15/21 07/02/24 History release empagliflozin 10 mg tablet 10 mg PO DAILY 02/24/24 07/02/24 History (Jardiance) sitagliptin phosphate 100 mg 100 mg PO DAILY 02/24/24 07/02/24 History tablet (Januvia) amlodipine 10 mg tablet 10 mg PO DAILY #30 tabs 03/03/24 07/02/24 Rx carvedilol 12.5 mg tablet (Coreg) 12.5 mg PO Q12HR #30 tabs 03/03/24 07/02/24 Rx clonidine HCl 0.2 mg tablet 0.2 mg PO Q12HR #30 tabs 03/03/24 07/02/24 Rx furosemide 20 mg tablet 20 mg PO DAILY #30 tabs 03/03/24 07/02/24 Rx hydrocodone 5 mg-acetaminophen 325 1 tablet PO Q4H PRN Pain Rated 4-6 03/12/24 07/02/24 Rx mg tablet #20 tabs rivaroxaban 10 mg tablet (Xarelto) 10 mg PO DAILY@1700 #30 tabs 03/12/24 07/02/24 Rx sennosides 8.6 mg-docusate sodium 2 tab PO BID #14 tabs 03/12/24 07/02/24 Rx 50 mg tablet (Senokot-S) tramadol 50 mg tablet 50 mg PO Q4H PRN Pain Rated 1-3 03/12/24 07/02/24 Rx #20 tabs glipizide 2.5 mg tablet, extended 2.5 mg PO DAILY 06/17/24 07/02/24 History release 24 hr aspirin 81 mg tablet,delayed 81 mg PO QAM 30 days #30 tabs 06/20/24 07/02/24 Rx release atorvastatin 40 mg tablet 40 mg PO DAILY 30 days #30 tabs 06/20/24 07/02/24 Rx acetaminophen 325 mg tablet 650 mg PO Q6HR PRN pain 07/02/24 07/02/24 History Allergies Allergy/AdvReac Type Severity Reaction Status Date / Time insulin glargine Allergy Severe Swelling Verified 04/19/24 11:14 amoxicillin Allergy Unknown Unknown Verified 04/19/24 11:14 cephalexin Allergy Unknown Unknown Verified 04/19/24 11:14 doxycycline Allergy Unknown Itching Verified 04/19/24 11:14 latex Allergy Unknown Unknown Verified 04/19/24 11:14 Penicillins Allergy Unknown Unknown Verified 04/19/24 11:14 sulfamethoxazole Allergy Unknown Swelling Verified 04/19/24 11:14 sumatriptan Allergy Unknown Unknown Verified 04/19/24 11:14 trazodone Allergy Unknown Swelling Verified 04/19/24 11:14 trimethoprim Allergy Unknown Swelling Verified 04/19/24 11:14 clindamycin Allergy Unknown Verified 04/19/24 11:14 Vital Signs Vital Signs - 24 hr 07/02/24 16:01 07/02/24 16:19 07/02/24 16:30 Temperature 98.3 F Pulse Rate 73 71 62 Respiratory Rate 16 14 Blood Pressure 123/80 125/87 Pulse Oximetry 98 96 Oxygen Delivery Room Air 07/02/24 16:31 07/02/24 16:46 07/02/24 17:06 Temperature Pulse Rate 63 62 62 Respiratory Rate 16 16 12 Blood Pressure 125/87 120/79 153/80 H Pulse Oximetry 99 98 100 Oxygen Delivery 07/02/24 17:07 07/02/24 18:16 07/02/24 18:30 Temperature Pulse Rate 61 61 63 Respiratory Rate 14 14 15 Blood Pressure 147/86 H 141/86 H 158/92 H Pulse Oximetry 97 Oxygen Delivery 07/02/24 19:01 07/02/24 19:16 07/02/24 19:31 Temperature Pulse Rate 62 63 60 Respiratory Rate 14 15 14 Blood Pressure 165/95 H 177/84 H 179/95 H Pulse Oximetry 97 99 Oxygen Delivery 07/02/24 19:46 07/02/24 20:18 07/02/24 22:00 Temperature 97.7 F Pulse Rate 60 58 L 56 L Respiratory Rate 11 L 18 18 Blood Pressure 178/94 H 174/91 H 144/62 H Pulse Oximetry 99 99 96 Oxygen Delivery 07/03/24 06:00 07/03/24 09:50 07/03/24 09:51 Temperature 97.5 F L Pulse Rate 56 L 57 L 57 L Respiratory Rate 20 Blood Pressure 135/62 142/68 H Pulse Oximetry 98 98 Oxygen Delivery Exam Const: General: comfortable and no acute distress Eyes: Sclera: sclerae normal Resp: Effort & Inspection: normal respiratory effort Auscultation: clear to auscultation bilaterally Cardio: Rate: regular rate Rhythm: regular rhythm GI: GI Palp: Yes Soft to palpation Auscultation: normal bowel sounds Skin: Other: Sacral wound stage IV with surrounding yeast maceration. otherwise warm and dry extremities. Neuro: Other: Right-sided flaccid paralysis of the right arm and leg, left-sided residual weakness but there is jaxon and movement. Moderate expressive aphasia again also chronic, no slurring of her speech. Alert oriented to her name and location. Extrem: Other: Right-sided flaccid paralysis, chronic, no extremity edema Psych: Other: oriented to person. H&P: Results Labs Labs: Short CBC 07/02/24 07/03/24 Range/Units 16:27 08:55 WBC 9.3 9.9 (4.5-10.0) K/mm3 Hgb 12.4 12.1 (12.0-15.0) g/dL Hct 40.0 39.1 (37.0-47.0) % Plt Count 490 H 445 H (150-375) k/mm3 BMP 07/02/24 07/03/24 16:27 08:55 Sodium 144 139 Potassium 3.5 3.7 Chloride 110 H 106 Carbon Dioxide 30 30 BUN 21 H 18 H Creatinine 0.87 0.85 Glucose 104 91 Calcium 8.8 8.8 Liver Function 07/02/24 07/03/24 Range/Units 16:27 08:55 Total Bilirubin 0.5 0.5 (0.2-1.3) mg/dL AST 35 29 (14-36) U/L ALT 11 12 (6-35) U/L Alkaline Phosphatase 91 90 (38-126) U/L Albumin 3.5 3.4 L (3.5-5.1) g/dL Urine 07/02/24 Range/Units 17:36 Urine Color Yellow (Yellow) Urine Appearance Turbid H (Clear) Urine pH 5.5 (5.0-9.0) Ur Specific [place] 1.016 (1.001-1.035) Urine Protein 1+ H (Negative) mg/dL Urine Glucose (UA) 3+ H (Negative) mg/dL Assessment and Plan Assessment and plan (1) Yeast UTI: Code(s): B37.49 - Other urogenital candidiasis Status: Acute Assessment and Plan: * Ceftriaxone 1 gram IVPB daily. * Fluconazole 200 mg PO daily. * Encourage water intake. * Urine culture pending. (2) Type 2 diabetes mellitus with hyperglycemia, without long-term current use of insulin: Code(s): E11.65 - Type 2 diabetes mellitus with hyperglycemia Status: Acute Assessment and Plan: * Hypoglycemia protocol and SSI. (3) Sacral wound: Code(s): S31.000A - Unspecified open wound of lower back and pelvis without penetration into retroperitoneum, initial encounter Status: Acute Assessment and Plan: * Turn q 2 * Apply silver gel and dressing to sacrum wound and antifungal cream to maceration. (4) History of CVA (cerebrovascular accident): Code(s): Z86.73 - Personal history of transient ischemic attack (TIA), and cerebral infarction without residual deficits Status: Acute Assessment and Plan: * PT/OT Plan Patient will need placement. Quality VTE Prophylaxis VTE prophylaxis: pharmacologic ordered Hospitalist [facility] Advance Care Plan I have confirmed that the patient's Advanced Care Plan is present, code status is documented, or surrogate decision maker is listed in patient medical record.: Yes Medication Reconciliation I have utilized all available resources to obtain, update and review the patients current medications (includes all prescriptions, OTC, herbals, cannabis, and nutritional supplements).: Yes
[2024-07-03 12:04] LABS: Glucose Point of Care 262 mg/dl (65-105)
[2024-07-03] MEDS: INSULIN ASPART (*BKC) 100 UNITS/ML SUB-Q ×2 (12:20→17:39)
[2024-07-03 13:43] VITALS: BMI 24.2
[2024-07-03 14:00] VITALS: BP 116/60; PULSE 60; RESP 18; TEMP 37.4; O2SAT 98
[2024-07-03] MEDS: traMADol HCL (*CRX) 50 MG TABLET PO (14:55)
[2024-07-03 17:30] LABS: Glucose Point of Care 241 mg/dl (65-105)
[2024-07-03] MEDS: RIVAROXABAN 10 MG TABLET PO (17:38)
[2024-07-03 20:00] VITALS: PULSE 65; RESP 16; O2SAT 97
[2024-07-03 20:21] LABS: Glucose Point of Care 142 mg/dl (65-105)
[2024-07-03 20:36] VITALS: BP 140/73; PULSE 65; RESP 16; TEMP 37.5; O2SAT 97
[2024-07-03] MEDS: cloNIDine HCL 0.2 MG TABLET PO (20:51)
[2024-07-04 05:29] VITALS: BP 147/68; PULSE 61; RESP 12; TEMP 36.7; O2SAT 99
[2024-07-04 06:48] LABS: Basophils Absolute Auto 0.1 K/mm3 (0.0-0.1); Basophils Percent Auto 0.5 % (0.2-1.2); Eosinophils Absolute Auto 0.1 K/mm3 (0-0.3); Eosinophils Percent Auto 0.6 % (0-4.4); Hematocrit 39.6 % (37.0-47.0); Hemoglobin 12.1 g/dL (12.0-15.0); Immature Granulocyte Absolute 0.03 K/mm3 (0.00-0.031); Immature Granulocyte Percent A 0.3 % (0-0.5); Lymphocytes Absolute Auto 3.94 K/mm3 (0.9-3.2); Lymphocytes Percent Auto 41.6 % (18.3-44.2); Mean Corpuscular HGB Conc 30.6 g/dl (32-36); Mean Corpuscular Hemoglobin 25.4 pg (26-34); Mean Corpuscular Volume 83.2 fl (80-100); Mean Platelet Volume 9.8 fl (7.4-10.4); Monocytes Absolute Auto 0.6 K/mm3 (0.1-0.6); Monocytes Percent Auto 6.4 % (2.6-8.5); Neutrophils Absolute Auto 4.8 K/mm3 (1.3-6.7); Neutrophils Percent Auto 50.6 % (45.5-73.1); Platelet Count Result 396 k/mm3 (150-375); Red Blood Count 4.76 M/mm3 (4.2-5.4); Red Cell Distribution Width 14.5 % (11.5-14.5); White Blood Count 9.5 K/mm3 (4.5-10.0)
[2024-07-04 07:18] LABS: Alanine Aminotransferase 11 U/L (6-35); Albumin Level 3.3 g/dL (3.5-5.1); Alkaline Phosphatase 82 U/L (38-126); Anion Gap 5 mmol/L (4-12); Aspartate Amino Transferase 21 U/L (14-36); Bilirubin,Total 0.3 mg/dL (0.2-1.3); Blood Urea Nitrogen 21 mg/dL (7-17); Calcium 8.6 mg/dL (8.4-10.2); Carbon Dioxide 28 mmol/L (22-30); Chloride 107 mmol/L (98-107); Estimated CRCL calculation 39 ml/min; Estimated Glomerular Filt Rate 50; Glucose 131 mg/dL (65-110); Potassium 3.8 mmol/L (3.4-5.0); Sodium 140 mmol/L (137-145)
[2024-07-04 08:23] LABS: Glucose Point of Care 126 mg/dl (65-105)
[2024-07-04] MEDS: amLODIPine BESYLATE 10 MG TABLET PO (09:29)
[2024-07-04] MEDS: PANTOPRAZOLE 40 MG TABLET PO ×2 (09:29→20:29)
[2024-07-04] MEDS: SENNA/DOCUSATE SODIUM TABLET 2 TAB PO ×2 (09:29→17:33)
[2024-07-04] MEDS: cloNIDine HCL 0.2 MG TABLET PO ×2 (09:29→20:29)
[2024-07-04] MEDS: ASPIRIN 81 MG ENTERIC TABLET PO (09:29)
[2024-07-04] MEDS: ATORVASTATIN 40 MG TABLET PO (09:29)
[2024-07-04 09:30] VITALS: PULSE 75
[2024-07-04] MEDS: traMADol HCL (*CRX) 50 MG TABLET PO (09:30)
[2024-07-04] MEDS: carvediloL 12.5 MG TABLET PO ×2 (09:30→20:28)
[2024-07-04] MEDS: FLUCONAZOLE 100 MG TABLET 200 MG PO (09:30)
[2024-07-04 11:40] LABS: Glucose Point of Care 357 mg/dl (65-105)
[2024-07-04] MEDS: INSULIN ASPART (*BKC) 100 UNITS/ML SUB-Q ×2 (12:10→20:25)
[2024-07-04 14:00] VITALS: BP 117/63; PULSE 68; RESP 20; TEMP 36.6; O2SAT 99
--- NOTE | 2024-07-04 15:15 | PM.IMPN ---
Progress Note: A&P Assessment and Plan (1) Yeast UTI: Code(s): B37.49 - Other urogenital candidiasis Status: Acute Assessment and Plan: Ceftriaxone 1 gram IVPB daily. Fluconazole 200 mg PO daily. Encouraged with water intake. Initial urine culture growing Lizet D[place]iniensis. Repeat urine culture pending. (2) Type 2 diabetes mellitus with hyperglycemia, without long-term current use of insulin: Code(s): E11.65 - Type 2 diabetes mellitus with hyperglycemia Status: Acute Assessment and Plan: Blood-glucose levels labile. Continue current SSI and Hypoglycemia protocol. Adjust insulin as needed for optimal blood-glucose control. (3) Sacral wound: Code(s): S31.000A - Unspecified open wound of lower back and pelvis without penetration into retroperitoneum, initial encounter Status: Acute Assessment and Plan: Turn q 2 Apply silver gel and dressing to sacrum wound and antifungal cream to maceration. (4) History of CVA (cerebrovascular accident): Code(s): Z86.73 - Personal history of transient ischemic attack (TIA), and cerebral infarction without residual deficits Status: Acute Assessment and Plan: Continue PT/OT treatment. Fall precautions. Plan Awaiting placement. Subjective Date/time seen: 07/04/24 13:15 Patient states she's comfortable and has no pain or other distress. Interval history: Patient with Hx of multiple CVA's with Right-sided hemiparesis and dasha. LE weakness. Patient previously lived with family but they're unable to take care of patient anymore, requesting placement. Review of Systems Review of Systems: All systems reviewed & are unremarkable except as noted in HPI and below Exam Narrative: General: Generalized weakness but comfortable on bedrest. HEENT: Atraumatic, PERRL, EOM, anicteric, moist mucosa. NECK: Supple. Lungs: Clear bilaterally. Heart: RRR, no murmurs. Abdomen: Soft, non-tender, non-distended, +VE BS X4 Quadrants. Extremities: Acyanotic, R. hemiparesis, dasha. LE weakness, 1+ edema R. LE, Trace edema LLE. Skin: Stage IV sacral decubitus with surrounding reddened yeast appearing maceration. Neuro: Oriented to place and location. R.Hemiparesis otherwise no focal deficits noted. Psych: Pleasant and co-operative. Objective Data Vital Signs Vital Signs: Vital Signs - 24 hr 07/03/24 20:00 07/03/24 20:36 07/04/24 05:29 Temperature 99.5 F 98.0 F Pulse Rate 65 65 61 Respiratory Rate 16 16 12 Blood Pressure 140/73 147/68 H Pulse Oximetry 97 97 99 Oxygen Delivery Room Air 07/04/24 08:00 07/04/24 09:30 07/04/24 09:56 Temperature Pulse Rate 75 Respiratory Rate Blood Pressure Pulse Oximetry Oxygen Delivery Room Air Room Air 07/04/24 14:00 Temperature 98 F Pulse Rate 68 Respiratory Rate 20 Blood Pressure 117/63 Pulse Oximetry 99 Oxygen Delivery Intake/Output Intake/Output: Intake & Output 07/01/24 07/02/24 07/03/24 07/04/24 23:59 23:59 23:59 23:59 Intake Total 200 1710 780 Output Total 200 Balance 0 1710 780 Meds/Results Medications: Active Medications Generic Name Dose Route Start Last Admin Trade Name Freq PRN Reason Stop Dose Admin Acetaminophen 650 mg 07/02/24 19:25 Acetaminophen 325 Mg Tablet PO Q4H PRN Mild Pain (1-3) or Fever Amlodipine Besylate 10 mg 07/03/24 09:00 07/04/24 09:29 Amlodipine Besylate 10 Mg Tablet PO 10 mg DAILY JAQUI Administration Aspirin 81 mg 07/03/24 09:00 07/04/24 09:29 Aspirin 81 Mg Enteric Tablet PO 81 mg QAM JAQUI Administration Atorvastatin Calcium 40 mg 07/03/24 09:00 07/04/24 09:29 Atorvastatin 40 Mg Tablet PO 40 mg DAILY JAQUI Administration Carvedilol 12.5 mg 07/03/24 09:00 07/04/24 09:30 Carvedilol 12.5 Mg Tablet PO 12.5 mg Q12HR JAQUI Administration Clonidine HCl 0.2 mg 07/03/24 21:00 07/04/24 09:29 Clonidine Hcl 0.2 Mg Tablet PO 0.2 mg Q12HR JAQUI Administration Dextrose 12.5 gm 07/03/24 10:33 Dextrose 50% 25 Gm/50 Ml Syringe IV PUSH PRN PRN Hypoglycemia Protocol Fluconazole 200 mg 07/02/24 19:00 07/04/24 09:30 Fluconazole 100 Mg Tablet PO 200 mg DAILY JAQUI Administration Glucagon 1 mg 07/03/24 10:33 Glucagon For Inj 1 Mg Vial IM PRN PRN Hypoglycemia Protocol Glucose 15 gm 07/03/24 10:33 Glucose Oral Gel 15 Gm Of Glucse In 37.5 Gm Tube PO PRN PRN Hypoglycemia Protocol Ceftriaxone Sodium 1 gm in 50 mls @ 100 mls/hr 07/03/24 09:30 07/04/24 09:30 Rocephin 1 Gm/Ns 50 Ml IVPB 100 mls/hr DAILY JAQUI Administration Dextrose 1,000 mls @ 100 mls/hr 07/03/24 10:33 Dextrose 5% 1,000 Ml IVPB PRN PRN Hypoglycemia Protocol Insulin Aspart 2 - 5 units 07/03/24 12:00 07/04/24 12:10 Insulin Aspart (*Bkc) 100 Units/Ml SUB-Q 5 units TIDWM JAQUI Administration Protocol Insulin Aspart 1 - 2 units 07/03/24 21:00 07/03/24 20:49 Insulin Aspart (*Bkc) 100 Units/Ml SUB-Q Not Given HS JAQUI Protocol Pantoprazole Sodium 40 mg 07/03/24 09:00 07/04/24 09:29 Pantoprazole 40 Mg Tablet PO 40 mg Q12HR JAQUI Administration Rivaroxaban 10 mg 07/03/24 17:00 07/03/24 17:38 Rivaroxaban 10 Mg Tablet PO 10 mg DAILY@1700 JAQUI Administration Senna/Docusate Sodium 2 tab 07/03/24 09:00 07/04/24 09:29 Senna/Docusate Sodium Tablet PO 2 tab BID JAQUI Administration Tramadol HCl 50 mg 07/03/24 10:34 07/04/24 09:30 Tramadol Hcl (*Crx) 50 Mg Tablet PO 50 mg Q4H PRN Administration Pain Rated 1-3 Radiology Results: ITS Impressions Head CT 07/02/24 17:11 IMPRESSION: 1. Infarct again seen in the right parietal occipital region, likely subacute. 2. 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 3. Stable extensive nonspecific cerebral white matter disease, which likely represents chronic small vessel ischemic disease. Chest X-Ray 07/02/24 17:14 IMPRESSION: Improved aeration of the bilateral lung king, without focal infiltrate or effusion. Labs Labs: Laboratory Results - last 24 hr 07/03/24 07/03/24 07/04/24 17:22 20:02 06:26 WBC 9.5 RBC 4.76 Hgb 12.1 Hct 39.6 MCV 83.2 MCH 25.4 L MCHC 30.6 L RDW 14.5 Plt Count 396 H MPV 9.8 Immature Gran % (Auto) 0.3 Neut % (Auto) 50.6 Lymph % (Auto) 41.6 [place] % (Auto) 6.4 Eos % (Auto) 0.6 Baso % (Auto) 0.5 Lymph # (Auto) 3.94 H [place] # (Auto) 0.6 Eos # (Auto) 0.1 Baso # (Auto) 0.1 Abs Immat Gran (auto) 0.03 Absolute Neuts (auto) 4.8 Absolute Nucleated RBC 0.000 Nucleated RBC % 0.0 Sodium 140 Potassium 3.8 Chloride 107 Carbon Dioxide 28 Anion Gap 5 BUN 21 H Creatinine 1.10 H Estim Creat Clear Calc 39 Estimated GFR 50 L Glucose 131 H POC Capillary Glucose 241 H 142 H Calcium 8.6 Total Bilirubin 0.3 AST 21 ALT 11 Alkaline Phosphatase 82 Total Protein 7.0 Albumin 3.3 L 07/04/24 07/04/24 08:11 11:28 WBC RBC Hgb Hct MCV MCH MCHC RDW Plt Count MPV Immature Gran % (Auto) Neut % (Auto) Lymph % (Auto) [place] % (Auto) Eos % (Auto) Baso % (Auto) Lymph # (Auto) [place] # (Auto) Eos # (Auto) Baso # (Auto) Abs Immat Gran (auto) Absolute Neuts (auto) Absolute Nucleated RBC Nucleated RBC % Sodium Potassium Chloride Carbon Dioxide Anion Gap BUN Creatinine Estim Creat Clear Calc Estimated GFR Glucose POC Capillary Glucose 126 H 357 H Calcium Total Bilirubin AST ALT Alkaline Phosphatase Total Protein Albumin Quality VTE Prophylaxis VTE prophylaxis: pharmacologic ordered Hospitalist [facility] Advance Care Plan I have confirmed that the patient's Advanced Care Plan is present, code status is documented, or surrogate decision maker is listed in patient medical record.: Yes Medication Reconciliation I have utilized all available resources to obtain, update and review the patients current medications (includes all prescriptions, OTC, herbals, cannabis, and nutritional supplements).: Yes
[2024-07-04 17:06] LABS: Glucose Point of Care 94 mg/dl (65-105)
[2024-07-04] MEDS: RIVAROXABAN 10 MG TABLET PO (17:33)
[2024-07-04 20:08] LABS: Glucose Point of Care 217 mg/dl (65-105)
[2024-07-04 20:28] VITALS: PULSE 78
[2024-07-04 21:10] VITALS: BP 136/75; PULSE 59; RESP 16; TEMP 37.4; O2SAT 100
[2024-07-05 05:43] VITALS: BP 142/72; PULSE 77; RESP 16; TEMP 37.1; O2SAT 97
[2024-07-05 08:11] LABS: Glucose Point of Care 156 mg/dl (65-105)
[2024-07-05] MEDS: FLUCONAZOLE 100 MG TABLET 200 MG PO (09:28)
[2024-07-05] MEDS: ASPIRIN 81 MG ENTERIC TABLET PO (09:29)
[2024-07-05] MEDS: PANTOPRAZOLE 40 MG TABLET PO ×2 (09:29→19:50)
[2024-07-05] MEDS: SENNA/DOCUSATE SODIUM TABLET 2 TAB PO ×2 (09:29→17:51)
[2024-07-05] MEDS: ATORVASTATIN 40 MG TABLET PO (09:30)
[2024-07-05] MEDS: amLODIPine BESYLATE 10 MG TABLET PO (09:30)
[2024-07-05] MEDS: cloNIDine HCL 0.2 MG TABLET PO ×2 (09:30→19:50)
[2024-07-05 09:31] VITALS: PULSE 77
[2024-07-05] MEDS: carvediloL 12.5 MG TABLET PO ×2 (09:31→19:50)
[2024-07-05 12:11] LABS: Glucose Point of Care 180 mg/dl (65-105)
[2024-07-05 14:00] VITALS: BP 136/75; PULSE 65; RESP 20; TEMP 37.1; O2SAT 99
[2024-07-05 14:42] LABS: Basophils Absolute Auto 0.1 K/mm3 (0.0-0.1); Basophils Percent Auto 0.4 % (0.2-1.2); Eosinophils Absolute Auto 0.1 K/mm3 (0-0.3); Eosinophils Percent Auto 0.9 % (0-4.4); Hematocrit 39.6 % (37.0-47.0); Hemoglobin 11.8 g/dL (12.0-15.0); Immature Granulocyte Absolute 0.04 K/mm3 (0.00-0.031); Immature Granulocyte Percent A 0.4 % (0-0.5); Lymphocytes Absolute Auto 3.13 K/mm3 (0.9-3.2); Lymphocytes Percent Auto 28.1 % (18.3-44.2); Mean Corpuscular HGB Conc 29.8 g/dl (32-36); Mean Corpuscular Hemoglobin 25.5 pg (26-34); Mean Corpuscular Volume 85.5 fl (80-100); Mean Platelet Volume 10.2 fl (7.4-10.4); Monocytes Absolute Auto 0.7 K/mm3 (0.1-0.6); Monocytes Percent Auto 6.5 % (2.6-8.5); Neutrophils Absolute Auto 7.1 K/mm3 (1.3-6.7); Neutrophils Percent Auto 63.7 % (45.5-73.1); Platelet Count Result 345 k/mm3 (150-375); Red Blood Count 4.63 M/mm3 (4.2-5.4); Red Cell Distribution Width 14.5 % (11.5-14.5); White Blood Count 11.1 K/mm3 (4.5-10.0)
[2024-07-05 14:51] LABS: Alanine Aminotransferase 10 U/L (6-35); Albumin Level 3.3 g/dL (3.5-5.1); Alkaline Phosphatase 77 U/L (38-126); Anion Gap 6 mmol/L (4-12); Aspartate Amino Transferase 20 U/L (14-36); Bilirubin,Total 0.4 mg/dL (0.2-1.3); Blood Urea Nitrogen 17 mg/dL (7-17); Calcium 8.5 mg/dL (8.4-10.2); Carbon Dioxide 26 mmol/L (22-30); Chloride 106 mmol/L (98-107); Estimated CRCL calculation 51 ml/min; Estimated Glomerular Filt Rate > 60; Glucose 173 mg/dL (65-110); Potassium 3.7 mmol/L (3.4-5.0); Sodium 138 mmol/L (137-145)
[2024-07-05 15:06] LABS: Hypochromasia 1+; Ovalocytes 1+; Platelet Estimate Adequate (Adequate); Schistocytes None Seen
--- NOTE | 2024-07-05 15:49 | P.PNIM_ITS ---
Progress Note: A&P Assessment and Plan (1) Yeast UTI: Code(s): B37.49 - Other urogenital candidiasis Status: Acute Assessment and Plan: * Urine culture negative. * Patient on Ceftriaxone 1 gram IVPB daily, discontinued after 3 doses with negative cultures. * Fluconazole 200 mg PO given X3 doses and discontinued with negative uruine culture. * Encouraged with water intake. (2) Type 2 diabetes mellitus with hyperglycemia, without long-term current use of insulin: Code(s): E11.65 - Type 2 diabetes mellitus with hyperglycemia Status: Acute Assessment and Plan: * Blood-glucose levels labile but levels improving. * Continue current SSI and Hypoglycemia protocol. * Adjust insulin as needed for optimal blood-glucose control. (3) Sacral wound: Code(s): S31.000A - Unspecified open wound of lower back and pelvis without penetration into retroperitoneum, initial encounter Status: Acute Assessment and Plan: * Turn q 2 * Apply silver gel and dressing to sacrum wound and antifungal cream to maceration. (4) History of CVA (cerebrovascular accident): Code(s): Z86.73 - Personal history of transient ischemic attack (TIA), and cerebral infarction without residual deficits Status: Acute Assessment and Plan: * Continue PT/OT treatment. * Fall precautions. Plan Awaiting placement. Time Spent With Patient Time with patient: 15 - 25 minutes Subjective Date/time seen: 07/05/24 15:49 Interval history: Patient with Hx of multiple CVA's with Right-sided hemiparesis and dasha. LE weakness. Patient previously lived with family but they're unable to take care of patient anymore, requesting placement. Review of Systems Review of Systems: All systems reviewed & are unremarkable except as noted in HPI and below Exam Narrative: General: Generalized weakness but comfortable on bedrest. HEENT: Atraumatic, PERRL, EOM, anicteric, moist mucosa. NECK: Supple. Lungs: Clear bilaterally. Heart: RRR, no murmurs. Abdomen: Soft, non-tender, non-distended, +VE BS X4 Quadrants. Extremities: Acyanotic, R. hemiparesis, dasha. LE weakness, 1+ edema R. LE, Trace edema LLE. Skin: Stage IV sacral decubitus with surrounding reddened yeast appearing maceration. Neuro: Oriented to place and location. R.Hemiparesis otherwise no focal deficits noted. Psych: Pleasant and co-operative. Objective Data Vital Signs Vital Signs: Vital Signs - 24 hr 07/04/24 20:28 07/04/24 21:00 07/04/24 21:10 Temperature 99.3 F Pulse Rate 78 59 L Respiratory Rate 16 Blood Pressure 136/75 Pulse Oximetry 100 Oxygen Delivery Room Air 07/05/24 05:43 07/05/24 08:00 07/05/24 09:31 Temperature 98.7 F Pulse Rate 77 77 Respiratory Rate 16 Blood Pressure 142/72 H Pulse Oximetry 97 Oxygen Delivery Room Air Intake/Output Intake/Output: Intake & Output 07/02/24 07/03/24 07/04/24 07/05/24 23:59 23:59 23:59 23:59 Intake Total 200 1710 1570 360 Output Total 200 Balance 0 1710 1570 360 Meds/Results Medications: Active Medications Generic Name Dose Route Start Last Admin Trade Name Freq PRN Reason Stop Dose Admin Acetaminophen 650 mg 07/02/24 19:25 Acetaminophen 325 Mg Tablet PO Q4H PRN Mild Pain (1-3) or Fever Amlodipine Besylate 10 mg 07/03/24 09:00 07/05/24 09:30 Amlodipine Besylate 10 Mg Tablet PO 10 mg DAILY JAQUI Administration Aspirin 81 mg 07/03/24 09:00 07/05/24 09:29 Aspirin 81 Mg Enteric Tablet PO 81 mg QAM JAQUI Administration Atorvastatin Calcium 40 mg 07/03/24 09:00 07/05/24 09:30 Atorvastatin 40 Mg Tablet PO 40 mg DAILY JAQUI Administration Carvedilol 12.5 mg 07/03/24 09:00 07/05/24 09:31 Carvedilol 12.5 Mg Tablet PO 12.5 mg Q12HR JAQUI Administration Clonidine HCl 0.2 mg 07/03/24 21:00 07/05/24 09:30 Clonidine Hcl 0.2 Mg Tablet PO 0.2 mg Q12HR JAQUI Administration Dextrose 12.5 gm 07/03/24 10:33 Dextrose 50% 25 Gm/50 Ml Syringe IV PUSH PRN PRN Hypoglycemia Protocol Fluconazole 200 mg 07/02/24 19:00 07/05/24 09:28 Fluconazole 100 Mg Tablet PO 200 mg DAILY JAQUI Administration Glucagon 1 mg 07/03/24 10:33 Glucagon For Inj 1 Mg Vial IM PRN PRN Hypoglycemia Protocol Glucose 15 gm 07/03/24 10:33 Glucose Oral Gel 15 Gm Of Glucse In 37.5 Gm Tube PO PRN PRN Hypoglycemia Protocol Dextrose 1,000 mls @ 100 mls/hr 07/03/24 10:33 Dextrose 5% 1,000 Ml IVPB PRN PRN Hypoglycemia Protocol Insulin Aspart 2 - 5 units 07/03/24 12:00 07/05/24 12:24 Insulin Aspart (*Bkc) 100 Units/Ml SUB-Q Not Given TIDWM JAQUI Protocol Insulin Aspart 1 - 2 units 07/03/24 21:00 07/04/24 20:25 Insulin Aspart (*Bkc) 100 Units/Ml SUB-Q 1 units HS JAQUI Administration Protocol Pantoprazole Sodium 40 mg 07/03/24 09:00 07/05/24 09:29 Pantoprazole 40 Mg Tablet PO 40 mg Q12HR JAQUI Administration Rivaroxaban 10 mg 07/03/24 17:00 07/04/24 17:33 Rivaroxaban 10 Mg Tablet PO 10 mg DAILY@1700 JAQUI Administration Senna/Docusate Sodium 2 tab 07/03/24 09:00 07/05/24 09:29 Senna/Docusate Sodium Tablet PO 2 tab BID JAQUI Administration Tramadol HCl 50 mg 07/03/24 10:34 07/04/24 09:30 Tramadol Hcl (*Crx) 50 Mg Tablet PO 50 mg Q4H PRN Administration Pain Rated 1-3 Radiology Results: ITS Impressions Head CT 07/02/24 17:11 IMPRESSION: 1. Infarct again seen in the right parietal occipital region, likely subacute. 2. 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 3. Stable extensive nonspecific cerebral white matter disease, which likely represents chronic small vessel ischemic disease. Chest X-Ray 07/02/24 17:14 IMPRESSION: Improved aeration of the bilateral lung king, without focal infiltrate or effusion. Labs Labs: Laboratory Results - last 24 hr 07/04/24 07/04/24 07/05/24 16:59 19:56 08:06 WBC RBC Hgb Hct MCV MCH MCHC RDW Plt Count MPV Immature Gran % (Auto) Neut % (Auto) Lymph % (Auto) [place] % (Auto) Eos % (Auto) Baso % (Auto) Lymph # (Auto) [place] # (Auto) Eos # (Auto) Baso # (Auto) Abs Immat Gran (auto) Absolute Neuts (auto) Absolute Nucleated RBC Nucleated RBC % Platelet Estimate Hypochromasia Ovalocytes Schistocytes Sodium Potassium Chloride Carbon Dioxide Anion Gap BUN Creatinine Estim Creat Clear Calc Estimated GFR Glucose POC Capillary Glucose 94 217 H 156 H Calcium Total Bilirubin AST ALT Alkaline Phosphatase Total Protein Albumin 07/05/24 07/05/24 12:01 14:30 WBC 11.1 H RBC 4.63 Hgb 11.8 L Hct 39.6 MCV 85.5 MCH 25.5 L MCHC 29.8 L RDW 14.5 Plt Count 345 MPV 10.2 Immature Gran % (Auto) 0.4 Neut % (Auto) 63.7 Lymph % (Auto) 28.1 [place] % (Auto) 6.5 Eos % (Auto) 0.9 Baso % (Auto) 0.4 Lymph # (Auto) 3.13 [place]oke # (Auto) 0.7 H Eos # (Auto) 0.1 Baso # (Auto) 0.1 Abs Immat Gran (auto) 0.04 H Absolute Neuts (auto) 7.1 H Absolute Nucleated RBC 0.000 Nucleated RBC % 0.0 Platelet Estimate Adequate Hypochromasia 1+ Ovalocytes 1+ Schistocytes None seen Sodium 138 Potassium 3.7 Chloride 106 Carbon Dioxide 26 Anion Gap 6 BUN 17 Creatinine 0.83 Estim Creat Clear Calc 51 Estimated GFR > 60 Glucose 173 H POC Capillary Glucose 180 H Calcium 8.5 Total Bilirubin 0.4 AST 20 ALT 10 Alkaline Phosphatase 77 Total Protein 7.0 Albumin 3.3 L Quality VTE Prophylaxis VTE prophylaxis: pharmacologic ordered Hospitalist [facility] Advance Care Plan I have confirmed that the patient's Advanced Care Plan is present, code status is documented, or surrogate decision maker is listed in patient medical record.: Yes Medication Reconciliation I have utilized all available resources to obtain, update and review the patients current medications (includes all prescriptions, OTC, herbals, cannabis, and nutritional supplements).: Yes
[2024-07-05 17:11] LABS: Glucose Point of Care 177 mg/dl (65-105)
[2024-07-05] MEDS: RIVAROXABAN 10 MG TABLET PO (17:51)
[2024-07-05 19:50] VITALS: PULSE 76
[2024-07-05] MEDS: ACETAMINOPHEN 325 MG TABLET 650 MG PO (19:50)
[2024-07-05] MEDS: INSULIN ASPART (*BKC) 100 UNITS/ML SUB-Q (20:25)
[2024-07-05 20:43] LABS: Glucose Point of Care 236 mg/dl (65-105)
[2024-07-05 21:59] VITALS: BP 131/61; PULSE 70; RESP 14; TEMP 36.6; O2SAT 99
[2024-07-06 06:00] VITALS: BP 157/71; PULSE 57; RESP 16; TEMP 36.1; O2SAT 98
[2024-07-06 06:17] LABS: Basophils Absolute Auto 0.1 K/mm3 (0.0-0.1); Basophils Percent Auto 0.6 % (0.2-1.2); Eosinophils Absolute Auto 0.1 K/mm3 (0-0.3); Eosinophils Percent Auto 1.1 % (0-4.4); Hematocrit 39.4 % (37.0-47.0); Hemoglobin 11.8 g/dL (12.0-15.0); Immature Granulocyte Absolute 0.05 K/mm3 (0.00-0.031); Immature Granulocyte Percent A 0.5 % (0-0.5); Lymphocytes Absolute Auto 3.19 K/mm3 (0.9-3.2); Mean Corpuscular HGB Conc 29.9 g/dl (32-36); Mean Corpuscular Hemoglobin 25.3 pg (26-34); Mean Corpuscular Volume 84.5 fl (80-100); Mean Platelet Volume 10.3 fl (7.4-10.4); Monocytes Absolute Auto 0.8 K/mm3 (0.1-0.6); Monocytes Percent Auto 7.8 % (2.6-8.5); Neutrophils Absolute Auto 6.4 K/mm3 (1.3-6.7); Platelet Count Result 307 k/mm3 (150-375); Red Blood Count 4.66 M/mm3 (4.2-5.4); Red Cell Distribution Width 14.4 % (11.5-14.5); White Blood Count 10.7 K/mm3 (4.5-10.0)
[2024-07-06 06:56] LABS: Platelet Estimate Adequate (Adequate); Schistocytes None Seen
[2024-07-06 07:32] LABS: Alanine Aminotransferase 9 U/L (6-35); Albumin Level 3.3 g/dL (3.5-5.1); Alkaline Phosphatase 75 U/L (38-126); Anion Gap 5 mmol/L (4-12); Aspartate Amino Transferase 18 U/L (14-36); Bilirubin,Total 0.6 mg/dL (0.2-1.3); Blood Urea Nitrogen 25 mg/dL (7-17); Calcium 8.7 mg/dL (8.4-10.2); Carbon Dioxide 27 mmol/L (22-30); Chloride 106 mmol/L (98-107); Estimated CRCL calculation 54 ml/min; Estimated Glomerular Filt Rate > 60; Glucose 197 mg/dL (65-110); Potassium 4.9 mmol/L (3.4-5.0); Sodium 138 mmol/L (137-145)
[2024-07-06 07:57] LABS: Glucose Point of Care 200 mg/dl (65-105)
[2024-07-06 09:32] VITALS: BP 140/62; PULSE 68; RESP 18; TEMP 36.1; O2SAT 100
[2024-07-06] MEDS: ATORVASTATIN 40 MG TABLET PO (09:34)
[2024-07-06 09:35] VITALS: PULSE 68; RESP 18; O2SAT 100
[2024-07-06] MEDS: SENNA/DOCUSATE SODIUM TABLET 2 TAB PO ×2 (09:35→16:36)
[2024-07-06] MEDS: ASPIRIN 81 MG ENTERIC TABLET PO (09:35)
[2024-07-06] MEDS: carvediloL 12.5 MG TABLET PO ×2 (09:35→21:13)
[2024-07-06] MEDS: cloNIDine HCL 0.2 MG TABLET PO ×2 (09:35→21:13)
[2024-07-06] MEDS: PANTOPRAZOLE 40 MG TABLET PO ×2 (09:36→21:12)
[2024-07-06] MEDS: amLODIPine BESYLATE 10 MG TABLET PO (09:36)
[2024-07-06] MEDS: ACETAMINOPHEN 325 MG TABLET 650 MG PO (10:51)
[2024-07-06 12:09] LABS: Glucose Point of Care 224 mg/dl (65-105)
[2024-07-06] MEDS: INSULIN ASPART (*BKC) 100 UNITS/ML SUB-Q ×3 (12:15→21:14)
[2024-07-06 14:00] VITALS: BP 131/64; PULSE 63; RESP 18; TEMP 37; O2SAT 98
--- NOTE | 2024-07-06 14:43 | P.DS_ITS ---
DS: Admitting Diagnosis Discharge Date 07/06/24 Admitting Diagnosis Generalized Muscle Weakness DS: Discharge Diagnosis Discharge Diagnosis (1) Yeast UTI: Code(s): B37.49 - Other urogenital candidiasis Status: Acute Assessment and Plan: * Urine culture negative. * Urine culture negative, no treatment required. (2) Type 2 diabetes mellitus with hyperglycemia, without long-term current use of insulin: Code(s): E11.65 - Type 2 diabetes mellitus with hyperglycemia Status: Acute Assessment and Plan: * Blood-glucose levels labile but stable. (3) Sacral wound: Code(s): S31.000A - Unspecified open wound of lower back and pelvis without penetration into retroperitoneum, initial encounter Status: Acute Assessment and Plan: * Seen by wound nurse and recommendations noted. * Turn q 2 * Apply silver gel and dressing to sacrum wound and antifungal cream to maceration. (4) History of CVA (cerebrovascular accident): Code(s): Z86.73 - Personal history of transient ischemic attack (TIA), and cerebral infarction without residual deficits Status: Acute Assessment and Plan: * Chronic. * Continue PT/OT treatment. * Fall precautions. Plan Discharge to SNF. DS: Summary Hospital Course Reason for hospitalization: Generalized Muscle Weakness Hospital Course: Patient was brought in to the ER by family with reports of alteration in mentation and increased generalized muscle weakness. Patient was just discharged from this facility less than 2 weeks prior to this presentation after being treated with abx for PNA. Patient's family believed pt either had another CVA with her Hx of multiple CVA's, or UTI, as pt is always weak and confused when she gets a UTI. Work-up in the ER was negative for acute CVA, her UA was suspicious for possible UTI and pt was treated empirically with Ceftriaxone that was discontinued after her urine culture grew no organisms. Patient's family reported that they were unable to provide patient with necessary care and requested patient placement to a SNF. Patient has been accepted at SNF and will be transferred for further care. Patient had mild leukocytosis that was trending down even with discontinuation of abx, and pt had no clinical signs of infection. Patient is medically stable for discharge with no acute distress noted or reported prior to discharge to SNF. All the other patient's chronic conditions remained stable inpatient. Pt has a chronic sacral wound as well and she was seen by wound nurse and recommendations to wound care noted. Status at Discharge Functional status at discharge: wheelchair bound Overall status at discharge: patient is back to baseline Time Spent with Patient Time attestation: Total time spent providing and/or coordinating discharge services: Time spent: Greater than 30 minutes Exam Narrative: General: Generalized weakness but comfortable on bedrest. HEENT: Atraumatic, PERRL, EOMI, anicteric, moist mucosa. NECK: Supple. Lungs: Clear bilaterally. Heart: RRR, no murmurs. Abdomen: Soft, non-tender, non-distended, +VE BS X4 Quadrants. Extremities: Acyanotic, R. hemiparesis, dasha. LE weakness, 1+ edema R. LE, Trace edema LLE. Skin: Stage IV sacral decubitus with surrounding reddened yeast appearing m aceration. Neuro: Oriented to place and location. R.Hemiparesis otherwise no focal deficits noted. Psych: Pleasant and co-operative. DS: Data Data Completed and Pending Labs on day of discharge: Labs from last 24 hours 07/06/24 07/06/24 07/06/24 12:04 07:53 05:59 WBC 10.7 H RBC 4.66 Hgb 11.8 L Hct 39.4 MCV 84.5 MCH 25.3 L MCHC 29.9 L RDW 14.4 Plt Count 307 MPV 10.3 Immature Gran % (Auto) 0.5 Neut % (Auto) 60.0 Lymph % (Auto) 30.0 [place] % (Auto) 7.8 Eos % (Auto) 1.1 Baso % (Auto) 0.6 Lymph # (Auto) 3.19 [place] # (Auto) 0.8 H Eos # (Auto) 0.1 Baso # (Auto) 0.1 Abs Immat Gran (auto) 0.05 H Absolute Neuts (auto) 6.4 Absolute Nucleated RBC 0.000 Nucleated RBC % 0.0 Platelet Estimate Adequate Hypochromasia Ovalocytes Schistocytes None seen Sodium 138 Potassium 4.9 Chloride 106 Carbon Dioxide 27 Anion Gap 5 BUN 25 H Creatinine 0.78 Estim Creat Clear Calc 54 Estimated GFR > 60 Glucose 197 H POC Capillary Glucose 224 H 200 H Calcium 8.7 Total Bilirubin 0.6 AST 18 ALT 9 Alkaline Phosphatase 75 Total Protein 7.0 Albumin 3.3 L 07/05/24 07/05/24 07/05/24 20:17 16:53 14:30 WBC 11.1 H RBC 4.63 Hgb 11.8 L Hct 39.6 MCV 85.5 MCH 25.5 L MCHC 29.8 L RDW 14.5 Plt Count 345 MPV 10.2 Immature Gran % (Auto) 0.4 Neut % (Auto) 63.7 Lymph % (Auto) 28.1 [place] % (Auto) 6.5 Eos % (Auto) 0.9 Baso % (Auto) 0.4 Lymph # (Auto) 3.13 [place] # (Auto) 0.7 H Eos # (Auto) 0.1 Baso # (Auto) 0.1 Abs Immat Gran (auto) 0.04 H Absolute Neuts (auto) 7.1 H Absolute Nucleated RBC 0.000 Nucleated RBC % 0.0 Platelet Estimate Adequate Hypochromasia 1+ Ovalocytes 1+ Schistocytes None seen Sodium 138 Potassium 3.7 Chloride 106 Carbon Dioxide 26 Anion Gap 6 BUN 17 Creatinine 0.83 Estim Creat Clear Calc 51 Estimated GFR > 60 Glucose 173 H POC Capillary Glucose 236 H 177 H Calcium 8.5 Total Bilirubin 0.4 AST 20 ALT 10 Alkaline Phosphatase 77 Total Protein 7.0 Albumin 3.3 L Discharge Plan Discharge Attending physician on discharge: Ernesto Kelley Discharging Clinician: Rafaela Cisneros Anticipated Discharge Date/Time: 07/06/24 15:03 Patient Disposition: Inpatient Rehab Facility Activity: as tolerated Diet: heart healthy Wound Care Instructions: follow printed instructions Patient Instructions: Apixaban (By mouth), Heart Failure (DC) Patient Language: Cypriot Stand Alone Forms: General Discharge Information Follow-up/Referrals: Eryn,TWAN Azul [Primary Care Provider] - 1 Week Discharge Medications: Continued Januvia 100 mg tablet 100 mg PO DAILY Jardiance 10 mg tablet 10 mg PO DAILY amlodipine 10 mg Tablet 10 mg PO DAILY Qty: 30 1RF carvedilol [Coreg] 12.5 mg Tablet 12.5 mg PO Q12HR Qty: 30 1RF clonidine HCl 0.2 mg Tablet 0.2 mg PO Q12HR Qty: 30 1RF furosemide 20 mg Tablet 20 mg PO DAILY Qty: 30 0RF hydrocodone-acetaminophen 5-325 mg Tablet 1 tablet PO Q4H PRN (Reason: Pain Rated 4-6) Qty: 20 0RF sennosides-docusate sodium [Senokot-S] 8.6-50 mg Tablet 2 tab PO BID Qty: 14 0RF Xarelto 10 mg Tablet 10 mg PO DAILY@1700 Qty: 30 0RF tramadol 50 mg Tablet 50 mg PO Q4H PRN (Reason: Pain Rated 1-3) Qty: 20 0RF glipizide 2.5 mg tablet extended release 24hr 2.5 mg PO DAILY atorvastatin 40 mg Tablet 40 mg PO DAILY 30 Days Qty: 30 1RF aspirin 81 mg Tablet,Delayed Release (Dr/Ec) 81 mg PO QAM 30 Days Qty: 30 1RF acetaminophen 325 mg Tablet 650 mg PO Q6HR PRN (Reason: pain) omeprazole 40 mg capsule,delayed release(DR/EC) 40 mg PO DAILY Date of admission: 07/02/24 19:25 Primary Care Provider: ErynSonali Admitting Provider: Malorie Pacheco Attending physician on admission: Malorie Pacheco Condition: Stable Quality VTE Prophylaxis VTE prophylaxis: pharmacologic ordered Hospitalist MIPS Heart Failure (Exclusion) Patient has history of Heart Transplant or Left Ventricular Assistive Device?: No IF YES, STOP HERE Heart Failure (Qualifier) Patient has current or prior documentation of LVEF less than or equal to 40%, or mod/servere depressed LVSF?: No IF NO, STOP HERE
[2024-07-06] MEDS: RIVAROXABAN 10 MG TABLET PO (16:36)
[2024-07-06 16:48] LABS: Glucose Point of Care 219 mg/dl (65-105)
[2024-07-06 20:03] LABS: Glucose Point of Care 220 mg/dl (65-105)
[2024-07-06 21:13] VITALS: PULSE 78
[2024-07-06 21:30] VITALS: BP 121/52; PULSE 69; RESP 16; TEMP 36.9; O2SAT 100
[2024-07-07 05:36] VITALS: BP 129/68; PULSE 58; RESP 13; TEMP 36.7; O2SAT 98
[2024-07-07 06:54] LABS: Basophils Absolute Auto 0.1 K/mm3 (0.0-0.1); Basophils Percent Auto 0.4 % (0.2-1.2); Eosinophils Absolute Auto 0.1 K/mm3 (0-0.3); Eosinophils Percent Auto 1.1 % (0-4.4); Hematocrit 40.4 % (37.0-47.0); Hemoglobin 12.4 g/dL (12.0-15.0); Immature Granulocyte Absolute 0.04 K/mm3 (0.00-0.031); Immature Granulocyte Percent A 0.3 % (0-0.5); Lymphocytes Absolute Auto 3.91 K/mm3 (0.9-3.2); Lymphocytes Percent Auto 33.9 % (18.3-44.2); Mean Corpuscular HGB Conc 30.7 g/dl (32-36); Mean Corpuscular Hemoglobin 25.8 pg (26-34); Mean Corpuscular Volume 84.2 fl (80-100); Mean Platelet Volume 10.6 fl (7.4-10.4); Monocytes Absolute Auto 0.8 K/mm3 (0.1-0.6); Monocytes Percent Auto 6.7 % (2.6-8.5); Neutrophils Absolute Auto 6.7 K/mm3 (1.3-6.7); Neutrophils Percent Auto 57.6 % (45.5-73.1); Platelet Count Result 288 k/mm3 (150-375); Red Cell Distribution Width 14.4 % (11.5-14.5); White Blood Count 11.6 K/mm3 (4.5-10.0)
[2024-07-07 07:08] LABS: Alanine Aminotransferase 11 U/L (6-35); Albumin Level 3.3 g/dL (3.5-5.1); Alkaline Phosphatase 76 U/L (38-126); Anion Gap 6 mmol/L (4-12); Aspartate Amino Transferase 16 U/L (14-36); Bilirubin,Total 0.4 mg/dL (0.2-1.3); Blood Urea Nitrogen 31 mg/dL (7-17); Calcium 9.2 mg/dL (8.4-10.2); Carbon Dioxide 27 mmol/L (22-30); Chloride 106 mmol/L (98-107); Estimated CRCL calculation 51 ml/min; Estimated Glomerular Filt Rate > 60; Glucose 186 mg/dL (65-110); Potassium 4.3 mmol/L (3.4-5.0); Sodium 139 mmol/L (137-145)
[2024-07-07 08:06] VITALS: O2SAT 94
[2024-07-07 08:26] LABS: Glucose Point of Care 188 mg/dl (65-105)
[2024-07-07] MEDS: ATORVASTATIN 40 MG TABLET PO (09:23)
[2024-07-07] MEDS: SENNA/DOCUSATE SODIUM TABLET 2 TAB PO (09:23)
[2024-07-07] MEDS: ASPIRIN 81 MG ENTERIC TABLET PO (09:23)
[2024-07-07] MEDS: amLODIPine BESYLATE 10 MG TABLET PO (09:24)
[2024-07-07] MEDS: PANTOPRAZOLE 40 MG TABLET PO (09:24)
[2024-07-07] MEDS: cloNIDine HCL 0.2 MG TABLET PO (09:24)
[2024-07-07 09:32] VITALS: PULSE 68
[2024-07-07] MEDS: carvediloL 12.5 MG TABLET PO (09:32)
[2024-07-07 11:45] LABS: Glucose Point of Care 259 mg/dl (65-105)
--- OUTSIDE RECORDS SUMMARY | 2024-07-09 03:10 | XMS_ITS | CONTINUITY OF CARE DOCUMENT ---
Author Name amber clark Address Unknown Organization [facility] Address [address] [place] [address] Phone [phone] Care Team Providers Care Zipper Trimmer Name Role Phone Enmanuel WONG, Josselin Barba Unavailable JONY LLOYD MD Unavailable [phone] VICTORIA VALERO PA-C Unavailable PROBLEMS Condition Status Date Provider Notes Cardiology [...] In-person encounter Office Visit Josselin Singer MD [facility] - In-person encounter Office Visit Josselin Singer MD [facility] - In-person encounter Office Visit Josselin Singer MD [facility] - In-person encounter Office Visit Josselin Singer MD [facility] - In-person encounter Office Visit Josselin Singer MD [facility] Carotid artery stenosis - left - In-person encounter Office Visit Josselin Singer MD [facility] CVAHTN essentialChest pain-type to be determinedPVD - unspecifiedTobacco abuse- hx ofAMI subendocardialDM - type 2 - In-person encounter Office Visit Josselin Singer MD [facility] Cardiology examination VITAL SIGNS Date Observation Value Provider Body Mass Index (Ratio) 25.06 kg/m2 Gina domi Sutton blood pressure, diastolic 120 mm[Hg] Deanna hiltonLognavid blood pressure, systolic 184 mm[Hg] Juanita Arellanonavid oxygen saturation, oximetry 94 % [facility] pulse rate 114 /min Rin Hercules respiratory rate E&M 12 /min Rin Hercules blood pressure, cuff size regular [facility], [facility] 120 mm[Hg] [facility], systolic 184 mm[Hg] Tab itha [...] Singer MD blood pressure, cuff size regular [facility] blood pressure, diastolic 138 mm[Hg] [facility] blood pressure, systolic 236 mm[Hg] [facility] oxygen saturation, oximetry 98 % [facility] pulse rate 114 /min [facility] respiratory rate E&M 16 /min [facility] weight E&M 155 [lb_av] [facility] height E&M 64 [in_i] [facility] Body Mass Index (Ratio) 25.57 kg/m2 [...] lder oxygen saturation, oximetry 99 % Aparna Choudhury respiratory rate E&M 12 /min Aparna huitronelddaquan [...] Payer name Policy type / Coverage type [place] red democrat ID [facility] Medicaid [id number] ADVANCE DIRECTIVES Name Date DISCUSSED - NO DECISION MADE TREATMENT PLAN Date Name Performer [id number],Alexis Espinoza ONCLUSIONS: 1 . Normal left ventricular [...] hysiologic pulmonic valve regurgitation. Josselin Singer MD [id number],Jairon Espinoza pparently had a mild heart attack 10 years ago at [facility]. Josselin Singer MD [id number],Alexis Espinoza ONCLUSIONS: 1 . 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 2 . 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 3 . The right lower extremity graft appears to be placed from right common femoral artery to right popliteal artery. The graft i s patent demonstrating triphasic and biphasic waveforms. Josselin Singer MD [id number],Alexis Espinoza ONCLUSIONS: 1 . >70% stenosis of the left ICA (Near occlusion of mid to distal segment). PSV=5.80 m/s, ICA/CCA= 7.75. 2 . <50% stenosis of the right ICA. P [email or web address] CAROTID Josselin Singer MD [id number],Alexis Espinoza carotid US, prior right sided weakness. Needs to be on statin, check lipid profi February 02, 2023 N eeds to get a carotid CT angiogram done. March 10, 2023 N eeds to get CAT scan done Josselin Singer MD [id number],Alexis Espinoza carotid US, prior right sided weakness. Needs to be on statin, check lipid profi February 02, 2023 N eeds to get a carotid CT angiogram done. Josselin Singer MD [id number],Leslye Espinoza she has not taken her BP medicines. I offered to have her admitted to the hospital but she refuses B P today: 220/139 P rior BP: 158/106 (01/06/2023) Her updated medication list for this problem includes: Clonidine Hcl 0.2 Mg Tablet (Clonidine hcl) Losartan 100 Mg Tablet (Losartan) Amlodipine 10 Mg Tablet (Amlodipine) Hydralazine 25 Mg Tablet (Hydralazine) Josselin Singer MD [id number],Alexis Espinoza ONCLUSIONS: 1 . Normal left ventricular [...] hysiologic pulmonic valve regurgitation. Josselin Singer MD [id number],Alexis Espinoza ONCLUSIONS: 1 . Normal sinus rhythm. Non-specific T wave abnormality. 2 . Normal Regadenoson ECG with no ischemic ST or T changes, following vasodilator stress. 3 . Normal left ventricle size. 4 . Left Ventricular Ejection Fraction is 52 % TID: 1.09. 5 . Normal myocardial perfusion imaging with no evidence of ischemia or scar. Josselin Singer MD [id number],Alexis Espinoza ONCLUSIONS: 1 . >70% stenosis of the left ICA (Near occlusion of mid to distal segment). PSV=5.80 m/s, ICA/CCA= 7.75. 2 . <50% stenosis of the right ICA. P [employer] CAROTID Study Dt:01-25-2023 Page 2 3 . Vertebral flow is antegrade bilaterally. 4 . Moderate stenosis of the left CCA, estimated 55% stenosis. February 02, 2023 W ill need to get a carotid CT angiogram done. Josselin Singer MD [id number],Alexis Espinoza ONCLUSIONS: 1 . 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 2 . 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 3 . The right lower extremity graft appears to be placed from right common femoral artery to right popliteal artery. The graft i s patent demonstrating triphasic and biphasic waveforms. Josselin Singer MD [id number],Alexis Espinoza carotid US, prior right sided weakness. Needs to be on statin, check lipid profi Josselin Singer MD [id number],Alexis Gavin echo, carotids US , and DANETTE. Needs a strss test, has unsteady gait, cannot walk on treadmill. Josselin Singer MD [id number],C, 1 ppd T he Patient was reencouraged to stop smoking. Josselin Singer MD [id number],C, H er updated medication list for this problem includes: Clonidine Hcl 0.2 Mg Tablet (Clonidine hcl) Losartan 100 Mg Tablet (Losartan) Amlodipine 10 Mg Tablet (Amlodipine) Hydralazine 25 Mg Tablet (Hydralazine) BP today: 158/106 P rior BP: 210/110 (12/20/2022) Josselin Singer MD [id number],C, A pparently had a mild heart attack 10 years ago at [facility]. 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 H er updated medication list for this problem includes: Tradjenta 5 Mg Tablet (Linagliptin) Losartan 100 Mg Tablet (Losartan) Josselin Sinegr MD Cardiology:This visi t has been a part of the consistent, comprehensive, and ongoing management of the chronic medical condition(s) listed above for the patient. C ONCLUSIONS: 1 . 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 2 . 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 3 . The [...] mild heart attack 10 years ago at [facility]. C ardiac cath 04/13/2022 C ardiovascular studies [...] mild heart attack 10 years ago at [facility]. September 01, 2023 E chocardiogram from 08/01/2023 [...] September 01, 2023 h ad hospitaliation at [facility] with w/u done and had good bp [...] mild heart attack 10 years ago at [facility]. Josselin Singer MD Cardiology: C ONCLUSIONS: 1 . 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 2 . 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 3 . The [...] <50% stenosis of the right ICA. P [email or web address] CAROTID Josselin Singer MD Cardiology: Alexis milan [...] <50% stenosis of the right ICA. P [email or web address] CAROTID Study Dt:01-25-2023 Page 2 3 . Vertebral flow is antegrade bilaterally. 4 . Moderate stenosis of the left CCA, estimated 55% stenosis. February 02, 2023 W ill need to get a carotid CT angiogram done. Josselin Singer MD Cardiology:CONCLUSIO NS: 1 . 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 2 . 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 3 . The [...] mild heart attack 10 years ago at [facility]. Josselin Singer MD Cardiology: S he had [...] EX Carotid Duplex Bilat eral Complete Echo [id number] Minor 10-19min HISTORY OF PROCEDURES Procedure Date Procedure Name Provider Procedure Notes S tatus Complex e/m visit add on Josselin Singer MD completed EKG Josselin Singer MD compl eted EKG Josselin Singer MD compl eted EKG Josselin Singer MD compl eted EKG Josselin Singer MD compl eted
--- OUTSIDE RECORDS SUMMARY | 2024-07-09 03:10 | XMS_ITS | Continuity of Care Document ---
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 K/mm3 0.0-0.1 [facility] [id number] [facility] [address] [address] Basophils # (Auto) March 07, 2024 4:57am 0.0 K/mm3 0.0-0.1 [facility] [id number] [address] [place] [address] 43732 Basophils # (Auto) June 19, 2024 5:15am 0.1 K/mm3 0.0-0.1 [facility] [id number] [address] [place] [address] 92921 Platelet Estimate February 27, 2024 2:28am Adequate Adequate [facility] [id number] [facility] [address] [address] Anisocytosis February 27, 2024 2:28am 1+ [facility] [id number] [address] [place] [address] 11410 Ovalocytes February 27, 2024 2:28am 1+ [facility] [id number] [address] [place] [address] 34234 Schistocytes February 27, 2024 2:28am None seen [facility] [id number] [address] [place] [address] 57471 Prothrombin Time February 27, 2024 2:28am 15.5 s Above high normal 11.1-14.7 [facility] [id number] [facility] [address] [address] Prothrombin Time March 05, 2024 11:11am 15.6 s Above high normal 11.1-14.7 [facility] [id number] [facility] [address] [address] Prothrombin Time June 17, 2024 12:56pm 13.9 s 11.1-14.7 [facility] [id number] [address] [place] [address] 29669 Prothromb Time Internationa l Ratio February 27, 2024 2:28am 1.2 INR Indication----- ---- --------0.9 - 1.1 Patients not on anticoagulant therapy.2.0 - 3.0 Routine therapy.2.5 - 3.5 Recurrent myocardial infarction or mechanical prosthetic valves. [facility] [id number] [address] [place] [address] 59371 Prothromb Time Internationa l Ratio March 05, 2024 11:11am 1.2 INR Indication----- ---- --------0.9 - 1.1 Patients not on anticoagulant therapy.2.0 - 3.0 Routine therapy.2.5 - 3.5 Recurrent myocardial infarction or mechanical prosthetic valves. [facility] [id number] [address] [place] [address] 52519 Prothromb Time Internationa l Ratio June 17, 2024 12:56pm 1.0 INR Indication----- ---- --------0.9 - 1.1 Patients not on anticoagulant therapy.2.0 - 3.0 Routine therapy.2.5 - 3.5 Recurrent myocardial infarction or mechanical prosthetic valves. [facility] [id number] [address] [place] [address] Activated Partial Thromboplast Time February 27, 2024 2:28am 27.9 s 22.3-36.8 [facility] [id number] [address] [place] [address] 90291 Activated Partial Thromboplast Time March 05, 2024 11:11am 26.1 s 22.3-36.8 [facility] [id number] [address] [address] Activated Partial Thromboplast Time June 17, 2024 12:56pm 23.6 s 22.3-36.8 [facility] [id number] [address] [address] Urine Color February 25, 2024 8:55pm Yellow Yellow [facility] [id number] [address] [address] Urine Color March 05, 2024 10:43am Yellow Yellow [facility] [id number] [address] [address] Urine Appearance February 25, 2024 8:55pm Clear Clear [facility] [id number] [address] [address] Urine Appearance March 05, 2024 10:43am Cloudy Above high normal Clear [facility] [id number] [address] [address] Urine pH February 25, 2024 8:55pm 5.5 5.0-9.0 [facility] [id number] [facility] [address] [address] Urine pH March 05, 2024 10:43am 5.0 5.0-9.0 [facility] [id number] [address] [address] Urine Specific Butler February 25, 2024 8:55pm 1.025 1.001-1.[address] [place] [address] Laboratory [id number] [address] [address] Urine Specific Butler March 05, 2024 10:43am 1.019 1.001-1.[address] [place] [address] Laboratory [id number] [facility] [address] [address] Urine Protein February 25, 2024 8:55pm 3+ mg/dL Above high normal Negative [facility] [id number] [address] [address] Urine Protein March 05, 2024 10:43am 1+ mg/dL Above high normal Negative [facility] [id number] [address] [address] Urine Glucose (UA) February 25, 2024 8:55pm 1+ mg/dL Above high normal Negative [facility] [id number] [facility] [address] [address] Urine Glucose (UA) March 05, 2024 10:43am 3+ mg/dL Above high normal Negative [facility] [id number] [address] [address] Urine Ketones February 25, 2024 8:55pm Negative mg/dL Negative [facility] [id number] [address] [address] Urine Ketones March 05, 2024 10:43am 1+ mg/dL Above high normal Negative [facility] [id number] [address] [address] Urine Blood (Manual) February 25, 2024 8:55pm 2+ Above high normal Negative [facility] [id number] [address] [address] Urine Blood (Manual) March 05, 2024 10:43am 2+ Above high normal Negative [facility] [id number] [address] [address] Urine Nitrate February 25, 2024 8:55pm Negative Negative [facility] [id number] [address] [address] Urine Nitrate March 05, 2024 10:43am Negative Negative [facility] [id number] [address] [address] Urine Bilirubin February 25, 2024 8:55pm Negative Negative [facility] [id number] [address] [address] Urine Bilirubin March 05, 2024 10:43am Negative Negative [facility] [id number] [address] [address] Urine Urobilinogen February 25, 2024 8:55pm 1.0 mg/dL <2.0 [facility] [id number] [address] [address] Urine Urobilinogen March 05, 2024 10:43am 0.2 mg/dL <2.0 [facility] [id number] [address] [address] Urine Leukocyte Esterase (Reflex) February 25, 2024 8:55pm Trace CALVIN/UL Above high normal [facility] [id number] [address] [address] Urine Leukocyte Esterase (Reflex) March 05, 2024 10:43am Negative CALVIN/UL Negative [facility] [id number] [address] [address] Urine RBC February 25, 2024 8:55pm 21-50 [HPF] Above high normal 0-2 [facility] [id number] [address] [place] [address] Urine RBC March 05, 2024 10:43am 11-20 [HPF] Above high normal 0-2 [facility] [id number] [address] [place] [address] Urine WBC February 25, 2024 8:55pm >100 [HPF] Above high normal 0-3 [facility] [id number] [address] [place] [address] Urine WBC March 05, 2024 10:43am 11-20 [HPF] Above high normal 0-3 [facility] [id number] [address] [place] [address] Urine Squamous Epithelial Cells February 25, 2024 8:55pm None seen [HPF] [facility] [id number] [address] [place] [address] Urine Squamous Epithelial Cells March 05, 2024 10:43am Occasional [HPF] [facility] [id number] [address] [place] [address] Urine Bacteria February 25, 2024 8:55pm Rare [HPF] [facility] [id number] [address] [place] [address] Urine Bacteria March 05, 2024 10:43am None seen [HPF] [facility] [id number] [address] [place] [address] Urine Hyaline Casts February 25, 2024 8:55pm Present [LPF] [facility] [id number] [address] [place] [address] Urine Yeast (Budding) March 05, 2024 10:43am Present [HPF] Above high normal None [facility] [id number] [address] [place] [address] Stool Occult Blood (IFOB) February 26, 2024 1:40am Positive Above high normal N [facility] [id number] [address] [place] [address] Urine Amphetamine Screen March 05, 2024 10:43am Positive Abnormal (applies to non-numeric results) Negative ATTENTION:The ingestion of natural herbal and plant products containing Ephedra/Ephedra metabolites can produce in urine one or more substances capable of cross reacting with amphetamine/met hamphetamine immunoassays. This test provides a preliminary result only. A more specific alternative chemical method must be used to obtain a confirmed analytical result. [facility] [id number] [facility] [place] [address] Urine Barbiturates Screen March 05, 2024 10:43am Negative Negative [facility] [id number] [address] [place] [address] Urine Benzodiazepi delphine Screen March 05, 2024 10:43am Positive Abnormal (applies to non-numeric results) Negative [facility] [id number] [address] [place] [address] Urine Cocaine Screen March 05, 2024 10:43am Negative Negative [facility] [id number] [address] [place] [address] Urine Methadone Screen March 05, 2024 10:43am Negative Negative [facility] [id number] [address] [place] [address] Urine Opiates Screen March 05, 2024 10:43am Negative Negative [facility] [id number] [address] [place] [address] Urine Phencyclidin e Screen March 05, 2024 10:43am Negative Negative [facility] [id number] [address] [place] [address] Urine Cannabinoids Screen March 05, 2024 10:43am Negative Negative This test provides only a preliminary test result.Clinical consideration and professional judgement must be applied to any drug of abuse test result, particularly in evaluating a preliminary positive result. In order to obtain a confirmed analytical results, a more specific alternate chemical method is needed.Gas Chromatography/ Mass Spectroscopy (GC/MS) is the preferred confirmatory method.Positive results should be detected when concentrations above the following are present:Ampheta mines 1000 ng/mlMethamphet amines 1000 ng/mlBarbiturat es 300 ng/mlBenzodiaze pines 300 ng/mlCocaine 300 ng/mlMethadone 300 ng/mlOpiates 300 ng/mlPhencyclid ine 25 ng/mlTHC 50 ng/ml [facility] [id number] [address] [place] [address] Sodium Level March 03, 2024 4:43am 136 mmol/L Below low normal 137-145 [facility] [id number] [address] [place], [place] [address] Sodium Level March 12, 2024 5:48am 134 mmol/L Below low normal 137-145 [facility] [id number] [address] [place] [address] Sodium Level June 19, 2024 5:15am 135 mmol/L Below low normal 137-145 [facility] [id number] [address] [place] [address] Potassium Level March 03, 2024 4:43am 3.3 mmol/L Below low normal 3.4-5.0 [facility] [id number] [address] [place] [address]659 Potassium Level March 12, 2024 5:48am 3.8 mmol/L 3.4-5.0 [facility] [id number] [address] [place] [address] Potassium Level June 19, 2024 5:15am 3.7 mmol/L 3.4-5.0 [facility] [id number] [address] [place] [address] Chloride Level March 03, 2024 4:43am 102 mmol/L 98-107 [facility] [id number] [address] [place] [address]63 Chloride Level March 12, 2024 5:48am 99 mmol/L [address] [facility] [id number] [address] [place] [address] Chloride Level June 19, 2024 5:15am 103 mmol/L [address] [facility] [id number] [address] [place] [address] Carbon Dioxide Level March 03, 2024 4:43am 27 mmol/L [facility] [id number] [address] [place] [address]88 Carbon Dioxide Level March 12, 2024 5:48am 27 mmol/L -30 [facility] [id number] [address] [place] [address]998 Carbon Dioxide Level June 19, 2024 5:15am 28 mmol/L - [facility] [id number] [address] [place] [address] Anion Gap March 03, 2024 4:43am 7 mmol/L 10-06 [facility] [id number] [address] [place] [address]8568 Anion Gap March 12, 2024 5:48am 8 mmol/L 10-06 [facility] [id number] [address] [address] Anion Gap June 19, 2024 5:15am 4 mmol/L 4-12 [facility] [id number] [address] [place] [address] Blood Urea Nitrogen March 03, 2024 4:43am 28 mg/dL Above high normal -17 [facility] [id number] [address] [place] [address] Blood Urea Nitrogen March 12, 2024 5:48am 20 mg/dL Above high normal 7-17 [facility] [id number] [address] [place] [address] Blood Urea Nitrogen June 19, 2024 5:15am 24 mg/dL Above high normal 7-17 [facility] [id number] [address] [place] [address] Creatinine March 03, 2024 4:43am 1.30 mg/dL Above high normal 0.7-1.0 [facility] [id number] [address] [place] [address] Creatinine March 12, 2024 5:48am 1.30 mg/dL Above high normal 0.7-1.0 [facility] [id number] [address] [place] [address]657 Creatinine June 19, 2024 5:15am 1.00 mg/dL 0.7-1.0 [facility] [id number] [address] [place] [address]385 Estimat Glomerular Filtration Rate March 03, 2024 4:43am 42 Below low normal >59 > OR = 60 ml/min/1.73 square metersThe MDRD formula used to calculate the eGFR result has not been validated in patients > 70 years of age. [facility] [id number] [address] [place] [address] Estimat Glomerular Filtration Rate March 12, 2024 5:48am 42 Below low normal >59 > OR = 60 ml/min/1.73 square metersThe MDRD formula used to calculate the eGFR result has not been validated in patients > 70 years of age. [facility] [id number] [address] [place] [address]30 Estimat Glomerular Filtration Rate June 19, 2024 5:15am 56 Below low normal >59 > OR = 60 ml/min/1.73 square metersThe MDRD formula used to calculate the eGFR result has not been validated in patients > 70 years of age. [facility] [id number] [address] [place] [address] Estimated Creatinine Clearance Calc March 03, 2024 4:43am 38 mL/min For use in prescription drug dose determination only. Reference ranges have not been establishe for this calculation. [facility] [id number] [address] [place] [address]2259 Estimated Creatinine Clearance Calc March 12, 2024 5:48am 38 mL/min For use in prescription drug dose determination only. Reference ranges have not been establishe for this calculation. [facility] [id number] [address] [place] [address] Estimated Creatinine Clearance Calc June 19, 2024 5:15am 45 mL/min For use in prescription drug dose determination only. Reference ranges have not been establishe for this calculation. [facility] [id number] [address] [place] [address] 22656 Glucose Level March 03, 2024 4:43am 91 mg/dL 65-110 [facility] [id number] [address] [place] [address] Glucose Level March 12, 2024 5:48am 181 mg/dL Above high normal 65-110 [facility] [id number] [address] [place] [address] 29873 Glucose Level June 19, 2024 5:15am 148 mg/dL Above high normal 65-110 [facility] [id number] [address] [place] [address]70 POC Capillary Glucose March 03, 2024 4:00pm 79 mg/dL 65-105 [facility] P[facility] POC Capillary Glucose March 12, 2024 3:41pm 197 mg/dL Above high normal 65-105 [facility] POC POC Capillary Glucose June 20, 2024 11:38am 210 mg/dL Above high normal 65-105 [facility] POC Hemoglobin A1c February 23, 2024 9:44pm 7.3 % Above high normal <5.7 <5.7: Decreased risk of diabetes 5.7-6.0: Increased risk of diabetes 6.1-6.4: Higher risk of diabetes> or = 6.5: Consistent with diabetes [facility] [id number] [address] [place] [address] Lactic Acid Level February 27, 2024 5:45am 1.6 mmol/L 0.7-2.0 [facility] [id number] [address] [place] [address] 42073 Lactic Acid Level March 05, 2024 10:44am 1.5 mmol/L 0.7-2.0 [facility] [id number] [address] [place] [address] Calcium Level March 03, 2024 4:43am 7.9 mg/dL Below low normal 8.4-10.2 [facility] [id number] [address] [place] [address] Calcium Level March 12, 2024 5:48am 8.7 mg/dL 8.4-10.2 [facility] [id number] [address] [place] [address]882 Calcium Level June 19, 2024 5:15am 9.4 mg/dL 8.4-10.2 [facility] [id number] [address] [place] [address] Phosphorus Level March 01, 2024 3:36am 4.1 mg/dL 2.5-4.5 [facility] [id number] [address] [place] [address] Magnesium Level March 03, 2024 4:43am 2.2 mg/dL 1.6-2.3 [facility] [id number] [address] [place] [address]12 Magnesium Level March 09, 2024 5:43am 2.0 mg/dL 1.6-2.3 [facility] [id number] [address] [place] [address]249 Total Bilirubin March 03, 2024 4:43am 0.4 mg/dL 0.2-1.3 [facility] [id number] [address] [place] [address]29 Total Bilirubin March 12, 2024 5:48am 0.4 mg/dL 0.2-1.3 [facility] [id number] [address] [place] [address] 50185 Total Bilirubin June 19, 2024 5:15am 0.6 mg/dL 0.2-1.3 [facility] [id number] [address] [place] [address] 22894 Aspartate Amino Transf (AST/SGOT) March 03, 2024 4:43am 24 U/L 14-36 [facility] [id number] [address] [place] [address] 07443 Aspartate Amino Transf (AST/SGOT) March 12, 2024 5:48am 21 U/L [facility] [id number] [address] [address] Aspartate Amino Transf (AST/SGOT) June 19, 2024 5:15am 31 U/L [facility] [id number] [address] [place] [address] Alanine Aminotransfe rase (ALT/SGPT) March 03, 2024 4:43am 15 U/L [address] [place] [address] Laboratory [id number] [address] [place] [address]999 Alanine Aminotransfe rase (ALT/SGPT) March 12, 2024 5:48am 12 U/L [facility] [id number] [address] [place] [address]99 Alanine Aminotransfe rase (ALT/SGPT) June 19, 2024 5:15am 10 U/L [address] Laboratory [id number] [address] [place] [address] 97174 Total Creatine Kinase March 05, 2024 10:41am 693 U/L Above high normal 30-135 [facility] [id number] [address] [place] [address] 49092 Troponin I February 26, 2024 7:06am 0.193 ng/mL Above high normal 0.000-0.03 4 Critical test result called with verbal read-back verified at 0850 on 02/26/24 by BRANDY Aguirre RN Critical Test Name & Result Given: TROP 0.193Critical test result called with verbal read-back verified at 0851 on 02/26/24 by Donaldo er: Critical test name and result given:Acute myocardial injury is indicated by:1. A troponin value of >0.034 ng/mL and/or2. A 20% change in troponin value.Specimens with biotin concentrations up to 2.5 ng/mL demonstrate a less than or equal to 10% change in results. Biotin concentrations greater than this falsely decrease Troponin results for patient samples. [facility] [id number] [address] [place] [address] 94397 Troponin I June 17, 2024 12:56pm 0.021 ng/mL 0.000-0.03 4 Acute myocardial injury is indicated by:1. A troponin value of >0.034 ng/mL and/or2. A 20% change in troponin value.Specimens with biotin concentrations up to 2.5 ng/mL demonstrate a less than or equal to 10% change in results. Biotin concentrations greater than this falsely decrease Troponin results for patient samples. [facility] [id number] [address] [place] [address] 85012 C-Reactive Protein February 27, 2024 2:28am 7.2 mg/dL Above high normal <1.1 [facility] [id number] [address] [place] [address] C-Reactive Protein March 05, 2024 10:44am 14.0 mg/dL Above high normal <1.1 [facility] [id number] [address] [place] [address] Total Protein March 03, 2024 4:43am 6.0 g/dL Below low normal 6.3-8.2 [facility] [id number] [address] [place], [place] [address] Total Protein March 12, 2024 5:48am 7.0 g/dL 6.3-8.2 [facility] [id number] [address] [place], [place] [address] Total Protein June 19, 2024 5:15am 8.0 g/dL 6.3-8.2 [facility] [id number] [address] [place] [address] 24157 Albumin March 03, 2024 4:43am 3.2 g/dL Below low normal 3.5-5.1 [facility] [id number] [address] [place] [address] 79422 Albumin March 12, 2024 5:48am 2.9 g/dL Below low normal 3.5-5.1 [facility] [id number] [address] [place] [address] 82247 Albumin June 19, 2024 5:15am 3.8 g/dL 3.5-5.1 [facility] [id number] [address] [place], [place] [address] Triglyceride s Level February 29, 2024 8:17pm 152 mg/dL Above high normal <150 [facility] [id number] [address] [place], [place] [address] Cholesterol Level February 24, 2024 3:34am 173 mg/dL 0-200 [facility] [id number] [facility] [address] [address] LDL Cholesterol Direct February 24, 2024 3:34am 94 mg/dL <130 mg/dl [id number] 9 mg/dl Borderline High Risk >160 mg/dl High Risk [facility] [id number] [facility] [address] [address] HDL Cholesterol Direct February 24, 2024 3:34am 36 mg/dL Expected Range > 35 mg/dl [facility] [id number] [facility] [address] [address] Alkaline Phosphatase March 03, 2024 4:43am 54 U/L 38-126 [facility] [id number] [address] [place] [address] Alkaline Phosphatase March 12, 2024 5:48am 75 U/L 38-126 [facility] [id number] [address] [place] [address] Alkaline Phosphatase June 19, 2024 5:15am 73 U/L 38-126 [facility] [id number] [address] [place] [address] Lipase February 23, 2024 9:44pm 29 U/L 23-300 [facility] [id number] [address] [place] [address] Lipase March 05, 2024 10:41am 30 U/L 23-300 [facility] [id number] [address] [place] [address] Thyroid Stimulating Hormone (Reflex March 06, 2024 6:04am 2.050 [iU]/mL 0.465-4.68 [facility] [id number] [address] [place] [address] Ethyl Alcohol Level March 05, 2024 10:44am < 10 mg/dL <10 [facility] [id number] [address] [place] [address] Arterial Blood pH March 01, 2024 3:10am 7.530 Above high normal 7.350-7.45 0 Critical test result called with verbal read-back verified at 0441 on 03/01/24 by Thelma Varghese, CL.Caregiver:Leonel White RN Critical test name and result given:pH=7.530 [facility] [id number] [address] [place] [address] Arterial Blood pH June 19, 2024 12:30pm 7.456 Above high normal 7.350-7.45 0 [facility] [id number] [address] [address] Arterial Blood Partial Pressure CO2 March 01, 2024 3:10am 30.2 mm[Hg] Below low normal 35.0-45.0 [facility] [id number] [address] [address] Arterial Blood Partial Pressure CO2 June 19, 2024 12:30pm 35.6 mm[Hg] 35.0-45.0 [facility] [id number] [address] [address] Arterial Blood Partial Pressure O2 March 01, 2024 3:10am 63.4 mm[Hg] Below low normal 80.0-100.0 [facility] [id number] [address] [address] Arterial Blood Partial Pressure O2 June 19, 2024 12:30pm 81.9 mm[Hg] 80.0-100.0 [facility] [id number] [address] [address] Arterial Blood HCO3 March 01, 2024 3:10am 24.7 meq/L 22.0-26.0 [facility] [id number] [address] [address] Arterial Blood HCO3 June 19, 2024 12:30pm 24.5 meq/L 22.0-26.0 [facility] [id number] [address] [address] Arterial Blood Base Excess March 01, 2024 3:10am 2.8 meq/L +/-2.0 [facility] [id number] [address] [address] Arterial Blood Base Excess June 19, 2024 12:30pm 1.0 meq/L +/-2.0 [facility] [id number] [address] [address] Arterial Blood Oxygen Saturation March 01, 2024 3:10am 94.6 % Below low normal 95.0-100.0 [facility] [id number] [address] [address] Arterial Blood Oxygen Saturation June 19, 2024 12:30pm 96.6 % 95.0-100.0 [facility] [id number] [address] [place] [address] Total Hemoglobin March 01, 2024 3:10am 14.4 g/dL 12.0-18.0 [facility] [id number] [address] [place] [address] Total Hemoglobin June 19, 2024 12:30pm 13.2 g/dL 12.0-18.0 [facility] [id number] [address] [place] [address] Blood Gas A-a Gradient March 01, 2024 3:10am 100.6 mm[Hg] [facility] [id number] [address] [place] [address] Blood Gas A-a Gradient June 19, 2024 12:30pm 75.7 mm[Hg] [facility] [id number] [address] [address] Arterial Blood Oxygen Content March 01, 2024 3:10am 18.8 %{vol} 16.0-22.0 [facility] [id number] [address] [place] [address] Arterial Blood Oxygen Content June 19, 2024 12:30pm 17.8 %{vol} 16.0-22.0 [facility] [id number] [address] [place] [address] Oxyhemoglobi n March 01, 2024 3:10am 92.7 %{Hemoglobin } 90.0-100.0 [facility] [id number] [address] [address] Oxyhemoglobi n June 19, 2024 12:30pm 95.4 %{Hemoglobin } 90.0-100.0 [facility] [id number] [address] [place] [address] Carboxyhemog lobin March 01, 2024 3:10am 0.8 %{Hemoglobin } 0-2.0 [facility] [id number] [address] [place] [address] Carboxyhemog lobin June 17, 2024 1:25pm 5.1 %{Hemoglobin } Above high normal 0-2.0 [facility] [id number] [address] [place] [address] Methemoglobi n March 01, 2024 3:10am 0.1 %{Hemoglobin } 0-1.5 [facility] [id number] [address] [place] [address] Methemoglobi n June 17, 2024 1:25pm 0.0 %{Hemoglobin } 0-1.5 [facility] [id number] 6800 [facility] [address] [place] [address] Reduced Hemoglobin March 01, 2024 3:10am 6.4 %{Hemoglobin } Above high normal 0-5.0 [facility] [id number] 6800 [facility] [address] [place] [address] Reduced Hemoglobin June 17, 2024 1:25pm 5.8 %{Hemoglobin } Above high normal 0-5.0 [facility] [id number] [address] [place] [address] Arterial Blood PO2/FiO2 Ratio March 01, 2024 3:10am 2.26 % [facility] [id number] [address] [address] Arterial Blood PO2/FiO2 Ratio June 19, 2024 12:30pm 2.92 % [facility] [id number] [address] [address] FiO2 March 01, 2024 3:10am 28 % [facility] [id number] [address] [address] FiO2 June 19, 2024 12:30pm 28 % [facility] [id number] [address] [address] Blood Gas Puncture Site March 01, 2024 3:10am Left radial [facility] [id number] [address] [address] Blood Gas Puncture Site June 19, 2024 12:30pm Right brachial [facility] [id number] [address] [address] Oxygen Delivery Device March 01, 2024 3:10am Nasal cannula [facility] [id number] [address] [address] Oxygen Delivery Device June 19, 2024 12:30pm Nasal cannula [facility] [id number] [address] [address] Blood Gas Vent Rate February 29, 2024 12:46pm Not Reportable [facility] [id number] [address] [address] Blood Gas Ventilator Mode February 29, 2024 12:46pm Spontaneous [facility] [id number] [address] [address] Bld Gas Peak Inspiratory Pressure February 29, 2024 12:46pm Not Reportable [facility] [id number] [address] [address] Blood Gas PEEP February 29, 2024 12:46pm 5 cmH2O [facility] [id number] [address] [address] Blood Gas Minute Volume February 29, 2024 12:46pm Not Reportable [facility] [id number] [address] [address] Blood Gas Tidal Volume February 29, 2024 12:46pm Not Reportable [facility] [id number] [address] [address] Blood Gas Pressure Support February 29, 2024 12:46pm 5 cmH2O [facility] [id number] [address] [address] Oxygen Liters/Minut e March 01, 2024 3:10am 2.0 M [facility] [id number] [address] [address] Oxygen Liters/Minut e June 19, 2024 12:30pm 2.0 LPM [facility] [id number] [address] [address] Urine Casts February 25, 2024 8:55pm >20 [facility] [id number] [address] [address] Urine Casts March 05, 2024 10:43am 11-20 [facility] [id number] [address] [address] Add Urine Microanalysi s February 25, 2024 8:55pm Reviewed [facility] [id number] [facility] [address] [address] Add Urine Microanalysi s March 05, 2024 10:43am Reviewed [facility] [id number] [address] [place] [address] Neisseria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 identification of DME needs * assist in identification of community resource needs * assist in identification of appropriate discharge destination [facility] March 03, 2024 6:04pm Develop pain management prog clara In order to achieve this outcome the patient will: * Use the pain scale appropriately * Identify options for pain control - Analgesics - Narcotics - Non-medication measures [facility] March 03, 2024 6:04pm Increase knowledge regarding pain mgmt *Demonstrates understanding of teaching [facility] March 03, 2024 6:04pm Exhibit no s/s alt. glucose metabolism * Maintains optimal blood glucose level * Blood glucose monitored as scheduled * Patient will notify nurse when meal tray has arrived * Out of prescribed acceptable range, notify . [facility] March 03, 2024 6:04pm Increase knowledge - smoking cessation Pt will verbalize understanding of smoking cessation resources [facility] March 03, 2024 6:04pm Remain free of injury *Follows Safety Interventions [facility] March 03, 2024 6:04pm Exhibits optimal GI function *Exhibits adequate intake and output *Exhibits adequate nutritional status [facility] March 03, 2024 6:04pm Maintains/improves level of orientation * Orients to person/place/time/situation [facility] March 03, 2024 6:04pm Maintain fluid and electroly te balance * Understands adequate fluid intake * Maintains vital signs WNL * Maintains optimal electrolyte values * Maintains balanced intake and output * Maintains BUN and Hct WNL * Maintains normal skin turgor [facility] March 03, 2024 6:04pm Exhibit appropriate behavior * Verbalizes preventative measures * Decreases violent responses [facility] March 03, 2024 6:04pm Exhibit intact skin * Skin remains intact [facility] March 03, 2024 6:04pm Improved nutritional status [facility] March 03, 2024 6:06pm *Improve Functional Mobility In order to achieve this outcome the patient will: *Improve bed mobility to independence *Improve transfers to independence with cane *Improve standing balance to good for 8 mins to reduce risk of falling with ADLs *Improve toilet transfers to CGA with cane *Improve shower transfers to MIN A with DME [facility] March 03, 2024 6:06pm *Improve Locomotion Mobility In order to achieve this outcome the patient will: *Improve gait to SBA using least restrictive assistive device for 50 feet to meet home/community needs [facility] March 03, 2024 6:06pm *Achieve Optimal Muscle Stre ngth In order to achieve this outcome the patient will: * Patient will be able to perform 10 repetitions of the BLE strengthening exercises with SBA * Increase strength to improve function for gait and transfers In order to achieve this outcome the patient will: * Patient will be able to perform 10 repetitions of the BUE strength exercises with standby assist * Increase strength to improve function for activities of daily living [facility] March 03, 2024 6:06pm *Achieve Functional Enduranc e In order to achieve this outcome the patient will: *Patient will tolerate therapeutic activity for 10 minutes without a break *Improve endurance for functional/ADL activity [facility] March 03, 2024 6:06pm *Improved Safety Awareness In order to achieve this outcome the patient will: *Request help when needed *Demonstrate increased safety during ADL's *Demonstrate increased safety during functional mobility tasks [facility] March 03, 2024 6:06pm *Improved Functional ADLs In order to achieve this outcome the patient will: Re-eval 03/02/24 *Safely complete 3 grooming tasks with MIN A while unsupported sitting in Kermit Stedy at sink (with/without) the use of adaptive equipment. *Safely complete bathing with MOD A (with/without) the use of adaptive equipment *Safely complete upper body dressing/undressing with CGA (with/without) the use of adaptive equipment *Safely complete lower body dressing/undressing with MIN A (with/without) the use of adaptive equipment *Safely don/doff shoes and socks with MIN A (with/without) the use of adaptive equipment *Safely complete toileting with MIN A (with/without) adaptive equipment or durable medical equipment. D/C 02/25/24: Pt. intubated, goals not met *Safely complete grooming tasks with independence (with/without) the use of adaptive equipment. *Safely complete bathing with standby assist (with/without) the use of adaptive equipment *Safely complete upper body dressing/undressing with independence (with/without) the use of adaptive equipment *Safely complete lower body dressing/undressing with standby assist (with/without) the use of adaptive equipment *Safely don/doff shoes and socks with standby assist (with/without) the use of adaptive equipment *Safely complete toileting with standby assist (with/without) adaptive equipment or durable medical equipment. [facility] March 03, 2024 6:06pm *Understands Home Program fo r OT In order to achieve this outcome the patient &/or caregiver will: * Demonstrate understanding of functional limitations * Demonstrate understanding of safety guidelines and precautions * Demonstrate understanding of rehab process * Demonstrate understanding of rehab potential * Demonstrate independence with instructed materials * Demonstrate independence with use of assistive device/equipment * Demonstrate understanding of care of the assistive device/equipment * Demonstrate good energy conservation techniques * Demonstrate good technique for positioning [facility] March 03, 2024 6:06pm *Understands Home Program fo r PT In order to achieve this outcome the patient &/or caregiver will: * Demonstrate understanding of functional limitations * Demonstrate understanding of safety awareness * Demonstrate independence with use of assistive device [facility] March 03, 2024 6:06pm Remain free of injury *Follows Safety Interventions [facility] March 03, 2024 6:04pm Exhibit optimal respiratory function * Maintain vital signs WNL * Maintain optimal lab values * Maintains optimal breathing pattern [facility] 03, 2024 3:55am Adequate cardiac output *Maintains vital signs WNL *Maintains adequate urine output [facility] March 03, 2024 6:04pm Maintain adequate fluid volu me * Maintains vital signs WNL * Maintains clear breath sounds * Exhibits decreasing edema * Maintains adequate intake and output * Maintains stable weight * Maintains optimal lab values [facility] March 03, 2024 6:04pm Maintain an effective breath ing pattern * Maintains a patent airway * Maintains vital signs WNL * Maintains optimal breath sounds [facility] March 03, 2024 6:04pm Improved infection * Maintains vital signs WNL * Evidences no purulent drainage from wounds, incisions, and tubes * Maintains optimal lab values [facility] March 03, 2024 6:04pm Maintains or Improves Mobili ty Maintains mobility or exhibits improvement in mobility [facility] March 03, 2024 6:04pm Verbalizes/Demonstrates Unde rstanding *Demonstrates understanding of teaching [facility] March 12, 2024 6:23pm Participate in Discharge Negro nning In order to achieve this outcome, the patient/ and or family will: * assist in identification of DME needs * assist in identification of community resource needs * assist in identification of appropriate discharge destination [facility] March 12, 2024 6:23pm Develop pain management prog clara In order to achieve this outcome the patient will: * Use the pain scale appropriately * Identify options for pain control - Analgesics - Narcotics - Non-medication measures [facility] March 12, 2024 6:23pm Increase knowledge regarding pain mgmt *Demonstrates understanding of teaching [facility] March 08, 2024 2:48am Adapt to partial or total he aring loss * Learns optimal communication methods * Wears hearing aid [facility] March 08, 2024 2:48am Exhibit no s/s alt. glucose metabolism * Maintains optimal blood glucose level * Blood glucose monitored as scheduled * Patient will notify nurse when meal tray has arrived * Out of prescribed acceptable range, notify . [facility] March 12, 2024 6:23pm Increase knowledge - smoking cessation Pt will verbalize understanding of smoking cessation resources [facility] March 12, 2024 6:23pm Exhibit intact skin * Skin remains intact [facility] March 12, 2024 6:23pm Remain free of injury *Follows Safety Interventions [facility] March 12, 2024 6:23pm Improved infection * Maintains vital signs WNL * Evidences no purulent drainage from wounds, incisions, and tubes * Maintains optimal lab values [facility] March 12, 2024 6:23pm Maintains/improves level of orientation * Orients to person/place/time/situation [facility] March 12, 2024 6:23pm Maintain adequate fluid volu me * Maintains vital signs WNL * Maintains clear breath sounds * Exhibits decreasing edema * Maintains adequate intake and output * Maintains stable weight * Maintains optimal lab values [facility] March 12, 2024 6:23pm Remain free of complications *Maintains optimal gas exchange *Maintains fluid and electrolyte balance *Remains free of infection *Exhibits no s/s thrombophlebitis *Maintains optimal elimination patterns [facility] March 12, 2024 6:23pm Exhibit appropriate behavior * Verbalizes preventative measures * Decreases violent responses [facility] March 12, 2024 6:23pm Pt will Experience Minimal A nxiety Patient will Demonstrate/Verbalize Minimal Anxiety Prior to Surgery 1. Coleman Patient by Explaining Room & Equipment 2. Allow Patient to Verbalize and Answer Questions 3. Monitor Patient Comfort i.e. Provide Warm Blankets 4. Indicate Special Needs r/t Development Age 5. Provide Emotional Support and Reassuring Atmosphere 6. Describe Sequence of Events During Pre-Op Period 7. Confirm Written and Verbal Consent for Operative Procedure [facility] March 07, 2024 5:05am Maintains or Improves Mobili ty Maintains mobility or exhibits improvement in mobility [facility] March 12, 2024 6:23pm Demonstrate/Verbalize Minima l Pain Pt will Demonstrate/Verbalize Minimal Pain to Surgical Intervention 1. Assess Location, Duration, and Intensity of Pain 2. Change Position as Allowed 3. Use Therapeutic Communication 4. Relay Complaints of Pain to Primary Nurse [facility] March 07, 2024 5:05am Exhibit optimal tissue integ rity * Exhibits granulation/healing at site * Exhibits decreased drainage at site * Exhibits no s/s of infection * Exhibits a decrease in lesion size * Maintains nutritional status * Maintains hydration status * Maintains optimal lab values [facility] March 12, 2024 6:23pm *Improve Functional Mobility In order to achieve this outcome the patient will: *Improve bed mobility to independence *Improve transfers to independence *Improve standing balance score while maintaining WB restrictions x 5 min with BUE support to reduce risk for falls [facility] March 12, 2024 6:23pm *Improve Locomotion Mobility In order to achieve this outcome the patient will: *Improve gait to SBA using least restricitve assistive device for 25 feet to meet home/community needs *Improve stair ascending/descending 3-4 steps to MIN ASSIST using rails/least restrictive assistive device to meet home needs. [facility] March 12, 2024 6:23pm *Achieve Optimal Muscle Stre ngth In order to achieve this outcome the patient will: * Patient will be able to perform [address] Chisholm PASCUAL exercises on LLE * Increase strength to improve function for transfers and ambulation [facility] March 12, 2024 6:23pm *Achieve Functional Enduranc e In order to achieve this outcome the patient will: *Patient will tolerate therapeutic activity for 10 minutes without a break *Improve endurance for functional/ADL activity [facility] March 12, 2024 6:23pm *Improved Safety Awareness In order to achieve this outcome the patient will: *Request help when needed *Demonstrate increased safety during ADL's *Demonstrate increased safety during functional mobility tasks [facility] March 12, 2024 6:23pm *Improved Functional ADLs In order to achieve this outcome the patient will: *Safely complete grooming tasks with MIN assist (with/without) the use of adaptive equipment. *Safely complete bathing with MOD assist (with/without) the use of adaptive equipment *Safely complete upper body dressing/undressing with MOD assist (with/without) the use of adaptive equipment *Safely complete lower body dressing/undressing with MOD assist (with/without) the use of adaptive equipment *Safely don/doff shoes and socks with MOD assist (with/without) the use of adaptive equipment *Safely complete toileting with MOD assist (with/without) adaptive equipment or durable medical equipment. [facility] March 12, 2024 6:23pm *Understands Home Program fo r PT In order to achieve this outcome the patient &/or caregiver will: * Verbalize understanding * Demonstrate understanding of injury/ disease * Demonstrate understanding of functional limitations * Demonstrate understanding of safety guidelines and precautions * Demonstate understanding of rehab process * Demonstrate understanding of rehab potential * Demonstrate independence with instructed materials * Demonstrate independence with edema management * Demonstrate understanding of altered sensation * Demonstrate independence with use of assistive device/equipment * Demonstrate understanding of care of the assistive device/equipment * Demonstrate good energy conservation techniques * Demonstrate good technique for positioning * Demonstrate independence with application/removal of orthosis/prosthesis * Adhere to application schedule of orthosis/prosthesis [facility] March 12, 2024 6:23pm Reduced risk of bleeding * Exhibits lab results WNL [facility] March 12, 2024 6:23pm Exhibits optimal GI function *Exhibits adequate intake and output *Exhibits adequate nutritional status [facility] March 12, 2024 6:23pm Maintain fluid and electroly te balance * Understands adequate fluid intake * Maintains vital signs WNL * Maintains optimal electrolyte values * Maintains balanced intake and output * Maintains BUN and Hct WNL * Maintains normal skin turgor [facility] March 12, 2024 6:23pm Exhibits intact oral mucosa * Demonstrates appropriate oral hygiene [facility] March 12, 2024 6:23pm Verbalizes/Demonstrates Unde rstanding *Demonstrates understanding of teaching [facility] June 20, 2024 9:55am Participate in Discharge Negro nning In order to achieve this outcome, the patient/ and or family will: * assist in identification of DME needs * assist in identification of community resource needs * assist in identification of appropriate discharge destination [facility] June 20, 2024 9:55am Develop pain management prog clara In order to achieve this outcome the patient will: * Use the pain scale appropriately * Identify options for pain control - Analgesics - Narcotics - Non-medication measures [facility] June 20, 2024 9:55am Increase knowledge regarding pain mgmt *Demonstrates understanding of teaching [facility] June 20, 2024 9:55am Exhibit no s/s alt. glucose metabolism * Maintains optimal blood glucose level * Blood glucose monitored as scheduled * Patient will notify nurse when meal tray has arrived * Out of prescribed acceptable range, notify . [facility] June 20, 2024 9:55am Exhibit intact skin * Skin remains intact [facility] June 20, 2024 9:55am Remain free of injury *Follows Safety Interventions [facility] June 20, 2024 9:55am Adapt to partial or total vi karlee loss * Uses corrective lenses * Performs ADL's * Uses safety measures [facility] June 20, 2024 9:55am Exhibit optimal tissue integ rity * Exhibits granulation/healing at site * Exhibits decreased drainage at site * Exhibits no s/s of infection * Exhibits a decrease in lesion size * Maintains nutritional status * Maintains hydration status * Maintains optimal lab values [facility] June 20, 2024 9:55am Improved nutritional status [facility] June 20, 2024 1:09pm *Understands Home Program fo r OT In order to achieve this outcome the patient &/or caregiver will: * Verbalize understanding * Demonstrate understanding of injury/ disease * Demonstrate understanding of functional limitations * Demonstrate understanding of safety guidelines and precautions * Demonstate understanding of rehab process * Demonstrate understanding of rehab potential * Demonstrate independence with instructed materials * Demonstrate independence with edema management * Demonstrate understanding of altered sensation * Demonstrate independence with use of assistive device/equipment * Demonstrate understanding of care of the assistive device/equipment * Demonstrate good energy conservation techniques * Demonstrate good technique for positioning * Demonstrate independence with application/removal of orthosis/prosthesis * Adhere to application schedule of orthosis/prosthesis [facility] June 20, 2024 1:09pm *Understands Home Program fo r PT In order to achieve this outcome the patient &/or caregiver will: * Demonstrate understanding of CVA * Demonstrate understanding of functional limitations * Demonstrate understanding of safety awareness * Demonstrate independence with use of assistive device (kermit stedy) [facility] June 20, 2024 1:09pm *Improve Functional Mobility In order to achieve this outcome the patient will: *Improve bed mobility to mod assist *Improve transfers to mod assist with kermit satnamsoniya *Improve sitting dynamic balance to fair for 8 mins to reduce risk of falling with ADLs. *Improve toilet transfers to mod assist with kermit stedy [facility] June 20, 2024 1:09pm *Improve Locomotion Mobility In order to achieve this outcome the patient will: *Improve gait to assist using least restricitve assistive device for ____ feet to meet home/community needs *Improve stair ascending/descending to ____ assist using rails/least restrictive assistive device to meet home needs. [facility] June 18, 2024 4:56pm *Achieve Optimal Muscle Stre ngth In order to achieve this outcome the patient will: * Patient will be able to perform 10 repetitions of the LLE strengthening with min assist/R LE passive ROM exercises * Increase strength to improve function for transfers * Patient will be able to perform 10 repetitions of the R UE active assist/passive ROM exercises and L UE strengthening exercises with MIN assist * Increase strength to improve function for performance and safety in ADLs and functional transfers [facility] June 20, 2024 1:09pm *Achieve Functional Enduranc e In order to achieve this outcome the patient will: *Patient will tolerate therapeutic activity for 10 minutes without a break *Patient will maintain O2 sats for 90% or greater with activity *Improve endurance for functional/ADL activity [facility] June 20, 2024 1:09pm *Improved Safety Awareness In order to achieve this outcome the patient will: *Request help when needed *Demonstrate increased safety during ADL's *Demonstrate increased safety during functional mobility tasks [facility] June 20, 2024 1:09pm *Improved Functional ADLs In order to achieve this outcome the patient will: *Patient will safely feed themselves with SBA while seated (with/without) the use of adaptive equipment *Safely complete grooming tasks with MIN assist while seated (with/without) the use of adaptive equipment. *Safely complete bathing with MOD assist (with/without) the use of adaptive equipment *Safely complete upper body dressing/undressing with MOD assist (with/without) the use of adaptive equipment *Safely complete lower body dressing/undressing with MOD assist (with/without) the use of adaptive equipment *Safely don/doff shoes and socks with MOD assist (with/without) the use of adaptive equipment *Safely complete toileting with MIN assist (with/without) adaptive equipment or durable medical equipment. [facility] June 20, 2024 1:09pm Reduced risk of bleeding * Exhibits lab results WNL [facility] June 20, 2024 9:55am Exhibits intact oral mucosa * Demonstrates appropriate oral hygiene [facility] June 20, 2024 9:55am Maintains/improves level of orientation * Orients to person/place/time/situation [facility] June 20, 2024 9:55am Improved infection * Maintains vital signs WNL * Evidences no purulent drainage from wounds, incisions, and tubes * Maintains optimal lab values [facility] June 20, 2024 9:55am Consultation Note Author Albin Emerygeoffrey [facility] Note Date/Time June 18, 2024 11:11am [facility] [address] [address] Neurology Consult Note Signed Patient: Adalgisa Tirado MR#: [id number] : 1960 Acct:[id number] Age: 64 ADM Date: 06/17/24 Loc: [id number] 255-[address]: Андрей Justice M.D. cc: Андрей Justice MD; Fracisco Corrales MD; Desmond Melendrez MD~ Assessment and Plan Assessment and plan (1) Acute cerebrovascular accident (CVA): Code(s): I63.9 - Cerebral infarction, unspecified Status: Acute (2) Type 2 diabetes mellitus: Code(s): E11.9 - Type 2 diabetes mellitus without complications Status: Acute (3) Hypertension: Code(s): I10 - Essential (primary) hypertension Status: Acute Plan 1. 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 2. 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 And 22% stenosis proximal right internal carotid artery but the CT scan documents infarct involving the right parietal occipitalregion as an acute problem. Sent to see [facility] stroke department was contacted and patient was not to be offered TNK , unfortunately patient has not been taking her Xarelto regularly. 3. Medication will be restarted here and with rehab as necessary. Consult date: 06/18/24 HPI: Adalgisa Tirado is a 64 year old female Admitted to the hospital through the emergency room where she presented with concerns for the recurrence of the stroke. 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 She could not provide any history other than saying that she does not feel right side though she was responsive to the verbal stimuli and also she had trouble following the commands. She has been taking aspirin 81mg daily along with Januvia 100mg daily and Jardiance 10mg daily. SHe is reportedly allergic to multiple medications as outlined. SHe doeshave ongoing history of 1. Carcinoma of the breast 2. Chronic renal disease 3. Hypertension 4. Diabetes mellitus 5. Left-sided stroke with difficulties in speech She does smoke 1 pack of cigarettes per day has been smoking for 20 yearswith history of years smoked 36 and currently everyday smoker. On initial examination in the emergency room she was documented to be chronically ill appearing with paralysis of her right upper extremity ,ability to move the toesof the right foot but not independently move the knee or hip, her vital signs were normal, CBC was normal, BMP with blood sugar of 223, and the other labs normal, CT scan of the head documented no bleed but she were noted to have infarct involving the right parietal occipital region in addition to the old infarct of large size involving the left frontal temporal and parietal lobes also including the left insula left basal ganglia and left internal capsule and left thalamus, head and neck CTA documented the infarct as mentioned above with total occlusion of cervical left internal carotid artery with intracranial reconstitution and small left A1 anterior cerebral artery segment with collateral but total occlusion of left A2 anterior cerebral artery with reconstitution ,total occlusion of left M1 middle cerebral artery with reconstitution of flow in the M 2 branches in addition to 22% stenosis of proximal right internal carotid artery. [facility] stroke team was contacted ,no transfer was suggested ,as per the chart patient was supposed to have Xarelto but as per the communication with this family she was not taking the medication,patient was admitted to the hospital for the stabilization of the neurological status. her EKG was normal with no evidence of atrial fibrillation. his stroke scale was 16 but outside of when and also medical contraindication for the IV thrombolytic therapy Review of Systems 2 Review of Systems: All systems reviewed & are unremarkable except as noted in HPI and below PMFSH Past Medical History Medical History Breast cancer Cognitive impairment Chronic kidney disease Hypertension Cerebrovascular accident Residual right-sided weakness and expressive aphasia. Type 2 diabetes mellitus Kidney stone Surgical History Surgical History History of hip surgery No pertinent past surgical history Family History Family History Mother Pulmonary embolism Other Unknown family medical history Social History Social History Social History: Surrogate medical decision maker: Son Jeyson Ibanez who lives in [place]. She does not want her sister making decisions for her. Code status: Full code. Smoking packs per day: 1 Smoking cigarettes per day: 20.0 Years smoked: 40 Smoking pack-years: 40.00 Smoking status: Former smoker Tobacco type: cigarettes Alcohol intake: never Substance use: never Substance use type: does not use Do You Feel Safe in your Home?: Yes Lack of Transportation: No Lack of Food: Never True Current Housing: I Have Housing Concerned About Future Housing: No Difficulty Paying Gas/Electric Bills: No Difficulty Paying for Meds: No Currently Unemployed: No Education: High School Diploma/GED Difficulty w/ Childcare or Family Care: No Spiritual care concerns: No Meds Home Medications and Allergies Home Medications ???Medication ???Instructions ???Recorded ???Confirmed ???Type omeprazole 40 mg capsule,delayed 40 mg PO DAILY 11/15/21 06/17/24 History release empagliflozin 10 mg tablet 10 mg PO DAILY 02/24/24 06/17/24 History (Jardiance) sitagliptin phosphate 100 mg 100 mg PO DAILY 02/24/24 06/17/24 History tablet (Januvia) amlodipine 10 mg tablet 10 mg PO DAILY #30 tabs 03/03/24 06/17/24 Rx carvedilol 12.5 mg tablet (Coreg) 12.5 mg PO Q12HR #30 tabs 03/03/24 06/17/24 Rx clonidine HCl 0.2 mg tablet 0.2 mg PO Q12HR #30 tabs 03/03/24 06/17/24 Rx furosemide 20 mg tablet 20 mg PO DAILY #30 tabs 03/03/24 06/17/24 Rx acetaminophen 325 mg tablet 650 mg (2 x 325 mg) PO Q6HR #15 03/12/24 06/17/24 Rx tabs hydrocodone 5 mg-acetaminophen 325 1 tablet PO Q4H PRN Pain Rated 4-6 03/12/24 06/17/24 Rx mg tablet #20 tabs rivaroxaban 10 mg tablet (Xarelto) 10 mg PO DAILY@1700 #30 tabs 03/12/24 06/17/24 Rx sennosides 8.6 mg-docusate sodium 2 tab PO BID #14 tabs 03/12/24 06/17/24 Rx 50 mg tablet (Senokot-S) tramadol 50 mg tablet 50 mg PO Q4H PRN Pain Rated 1-3 03/12/24 06/17/24 Rx #20 tabs glipizide 2.5 mg tablet, extended 2.5 mg PO DAILY 06/17/24 06/17/24 History release 24 hr Allergies Allergy/AdvReac Type Severity Reaction Status Date / Time insulin glargine Allergy Severe Swelling Verified 04/19/24 11:14 amoxicillin Allergy Unknown Unknown Verified 04/19/24 11:14 cephalexin Allergy Unknown Unknown Verified 04/19/24 11:14 doxycycline Allergy Unknown Itching Verified 04/19/24 11:14 latex Allergy Unknown Unknown Verified 04/19/24 11:14 Penicillins Allergy Unknown Unknown Verified 04/19/24 11:14 sulfamethoxazole Allergy Unknown Swelling Verified 04/19/24 11:14 sumatriptan Allergy Unknown Unknown Verified 04/19/24 11:14 trazodone Allergy Unknown Swelling Verified 04/19/24 11:14 trimethoprim Allergy Unknown Swelling Verified 04/19/24 11:14 clindamycin Allergy Unknown Verified 04/19/24 11:14 Vital Signs Vital Signs - 24 hr 06/17/24 12:40 06/17/24 12:46 06/17/24 13:00 Temperature 36.4 C Pulse Rate 69 68 67 Respiratory Rate 16 16 19 Blood Pressure 92/64 L 92/64 L 139/69 Pulse Oximetry 100 98 100 Oxygen Delivery Room Air Oxygen Flow Rate 06/17/24 14:00 06/17/24 15:00 06/17/24 17:12 Temperature 36.1 C L Pulse Rate 67 64 57 L Respiratory Rate 18 17 18 Blood Pressure 141/71 H 136/86 149/72 H Pulse Oximetry 100 100 97 Oxygen Delivery Oxygen Flow Rate 06/17/24 17:40 06/17/24 19:34 06/17/24 20:00 Temperature 37.0 C Pulse Rate 57 L 58 L 58 L Respiratory Rate 18 18 18 Blood Pressure 120/61 Pulse Oximetry 97 98 98 Oxygen Delivery Room Air Room Air Oxygen Flow Rate 06/17/24 20:00 06/18/24 00:00 06/18/24 01:51 Temperature Pulse Rate 59 L 63 58 L Respiratory Rate 18 Blood Pressure Pulse Oximetry 98 Oxygen Delivery Nasal Cannula Oxygen Flow Rate 2 06/18/24 04:00 06/18/24 05:41 06/18/24 06:00 Temperature 37.3 C 37.3 C Pulse Rate 76 75 Respiratory Rate 17 Blood Pressure 160/82 H Pulse Oximetry 100 Oxygen Delivery Oxygen Flow Rate 06/18/24 07:00 06/18/24 09:18 06/18/24 09:22 Temperature 37.1 C 36.9 C Pulse Rate 67 67 Respiratory Rate 16 Blood Pressure 167/88 H Pulse Oximetry 92 Oxygen Delivery Oxygen Flow Rate Exam 2 Narrative: Examination revealed her to be awake alert making good eye contact and time follow the verbal instruction but not exactly following the commands. Head normocephalic with no cranial bruit, ear nose throat examination is normal, necksupple with no cervical bruits, with no thyromegaly, heart regular with no murmur, lungs clear to auscultation with no rhonchi or crepitations, abdomen soft nontender, neurologically she is awake laying in bed with eyes open making good eye contact but unable to follow the verbal commands appropriately, pupils round regular react to light equally, king of vision are unreliable as she didnot respond to the threat stimuli, extraocular movements are spontaneously full with no nystagmus, facial sensation intact, face symmetrical, tongue in the oralcavity, motor examination revealed her to have hemiparesis on the right more obvious than the left with hyperreflexia and upgoing plantar responses , she haddifficulty performing [id number] to finger because of the inability to follow all the instructions. She was unable to stand and walk. Results Labs 06/17/24 12:56 06/17/24 12:56 Labs: Short CBC 06/17/24 Range/Units 12:56 WBC 9.9 (4.5-10.0) K/mm3 Hgb 12.8 (12.0-15.0) g/dL Hct 41.9 (37.0-47.0) % Plt Count 385 H (150-375) k/mm3 BMP 06/17/24 12:56 Sodium 140 Potassium 4.3 Chloride 104 Carbon Dioxide 30 BUN 17 Creatinine 1.00 Glucose 223 H Calcium 9.4 Cardiac Enzymes 06/17/24 Range/Units 12:56 Troponin I 0.021 (0.000-0.034) ng/mL Liver Function 06/17/24 Range/Units 12:56 Total Bilirubin 0.6 (0.2-1.3) mg/dL AST 25 (14-36) U/L ALT 8 (6-35) U/L Alkaline Phosphatase 68 (38-126) U/L Albumin 3.9 (3.5-5.1) g/dL This report may have been done utilizing a voice recognition system. Attempts have been made to correct errors. However, there may be uncorrected grammatical,spelling, and recognition errors present. Report Initialized date/time: Albin Soto MD 06/18/24 / 1002 Electronically signed by: Albin Soto MD 06/18/24 1111 [facility] Date/Time June 20, 2024 10:[address] [place] [address] [address] [place], [place] [id number] Discharge Summary Signed Patient: Adalgisa Tirado MR#: [id number] : 1960 Acct:[id number] Age: 64 ADM Date: 06/18/24 Loc: [id number] 255-[address]: Андрей Justice M.D. cc: Eryn, Sonali Sánchez PA-C; Андрей Justice MD; Fracisco Corrales MD~ DS: Admitting Diagnosis Discharge Date 06/20/24 Admitting Diagnosis New stroke-like symptoms on right side DS: Discharge Diagnosis Discharge Diagnosis (1) Acute cerebrovascular accident (CVA): Code(s): I63.9 - Cerebral infarction, unspecified Status: Acute DS: Summary Hospital Course Hospital Course: 64-year-old female with previous stroke with residual left-sided weakness only able to transfer to wheelchair now presents with right-sided flaccid.. Unknown if patient is compliant with Xarelto. HPI is limited due to patient having word-finding issues, getting frustrated. CT head shows new right parietal up septal infarct, old left frontal temporal and parietal lobe, left insula, left basal ganglia, left internal capsule, and left thalamus. Patient had ABG that showed hypoxia placed on 2 L nasal cannula and given 20 of IV Lasix. Patient is hyperglycemic started on insulin protocol. Chest x-ray shows possible pneumonia versus atelectasis. Neurology eval noted that patient has not been compliant with Xarelto. Patient was started on Aspirin and Lipitor and Continued on Xarelto. Was not a candidatefor TNK per neurology. ECHO showed EF 60-65% with grade I diastolic dysfunction.Patient now has right-sided flaccid paralysis, PT evaluated and recommended Rehab however patient and family declined noting that they have full arrangement at home to take care of patient even physical therapy and care givers. Patient was thus discharged home. Continue Aspirin and Lipitor. F/u with PCP in 3-5 days and with neurology as instructed. Patient is swallowing okay and tolerating diet. Patient not Patient was also managed for Pneumonia likely aspiration and dscharged on 5 moreday of Levaquin and Flagyl. was initialy needing oxygen but was successfully weaning off to room air. continue other home meds. Assessment and Plan (1) Hypoxia: Code(s): R09.02 - Hypoxemia Status: Acute Assessment and Plan: Pt is on oxygen Chest x-ray shows left lower lobe consistent with atelectasis versus pneumonia ? aspiration pneumonia ST ordered to evaluate pt cover with iv rocephin and flagyl for now (2) CHF (congestive heart failure): Code(s): I50.9 - Heart failure, unspecified Status: Acute Assessment and Plan: Continue pts home dose of oral lasix Pt has history of CHF ECHO EF 60-65% and grade I diastolic dysfunction (3) Acute cerebrovascular accident (CVA): Code(s): I63.9 - Cerebral infarction, unspecified Status: Acute Assessment and Plan: Neurology consulted CT shows new ischemic stroke Case was discussed with tertiary center by ED doctor and patient is outside of the window for TNK, ok to keep patient here per Neurology continue asa xarelto and statin as per neurology md - Bihemispheric stroke with old left hemisphere involvementand super imposed right hemispheric stroke as well. 2. 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 And 22% stenosis proximal right internal carotid artery but the CT scan documents infarct involving the right parietal occipital region as an acute problem. (4) Urinary retention: Code(s): R33.9 - Retention of urine, unspecified Status: Acute Assessment and Plan: pass catheter if necessary (5) Type 2 diabetes mellitus: Code(s): E11.9 - Type 2 diabetes mellitus without complications Status: Acute Assessment and Plan: 02/23/2024 hemoglobin A1c 7.3 Accu-Cheks AC and HS Diabetic diet SSI (6) Hypertension: Code(s): I10 - Essential (primary) hypertension Status: Acute Assessment and Plan: Permissive hypertension, hold antihypertensives (7) History of CVA (cerebrovascular accident): Code(s): Z86.73 - Personal history of transient ischemic attack (TIA), and cerebral infarction without residual deficits Status: Acute Assessment and Plan: Wheelchair-bound Left-sided residual weakness from previous tia continue PT/ OT/ ST await AR bed Time Spent with Patient Time attestation: Total time spent providing and/or coordinating discharge services: DS: Data Data Completed and Pending Labs on day of discharge: Labs from last 24 hours 06/20/24 06/19/24 06/19/24 08:01 19:39 16:54 Puncture Site ABG pH ABG pCO2 ABG pO2 ABG PO2/FiO2 Ratio ABG HCO3 ABG O2 Saturation ABG O2 Content ABG Base Excess A-a Gradient Oxyhemoglobin Total Hemoglobin O2 Delivery Device O2 Liters/Min FiO2 POC Capillary Glucose 188 H 181 H 199 H 06/19/24 06/19/24 12:30 11:37 Puncture Site Right brachial ABG pH 7.456 H ABG pCO2 35.6 ABG pO2 81.9 ABG PO2/FiO2 Ratio 2.92 ABG HCO3 24.5 ABG O2 Saturation 96.6 ABG O2 Content 17.8 ABG Base Excess 1.0 A-a Gradient 75.7 Oxyhemoglobin 95.4 Total Hemoglobin 13.2 O2 Delivery Device Nasal cannula O2 Liters/Min 2.0 FiO2 28 POC Capillary Glucose 175 H Discharge Plan Discharge Attending physician on discharge: Aggie Henderson Consulting providers: Juanjo Esquivel Discharging Clinician: Aggie Henderson Anticipated Discharge Date/Time: 06/20/24 09:57 Patient Disposition: Home, Self-Care Activity: as tolerated Diet: as tolerated Patient Instructions: Antibiotic Form Patient Language: Cameroonian Stand Alone Forms: General Discharge Information Follow-up/Referrals: Eryn,TWAN Azul [Primary Care Provider] - (F/u with PCP in 3-5 days ) Juanjo Esquivel MD [Physician] - (F/u with PCP in 3-5 days ) Discharge Medications: New aspirin 81 mg Tablet,Delayed Release (Dr/Ec) 81 mg PO QAM 30 Days Qty: 30 1RF levofloxacin 250 mg tablet 250 mg PO DAILY 5 Days Qty: 5 0RF atorvastatin 40 mg Tablet 40 mg PO DAILY 30 Days Qty: 30 1RF metronidazole 500 mg tablet 500 mg PO Q8H 5 Days Qty: 15 0RF Continued Januvia 100 mg tablet 100 mg PO DAILY Jardiance 10 mg tablet 10 mg PO DAILY amlodipine 10 mg Tablet 10 mg PO DAILY Qty: 30 1RF carvedilol [Coreg] 12.5 mg Tablet 12.5 mg PO Q12HR Qty: 30 1RF clonidine HCl 0.2 mg Tablet 0.2 mg PO Q12HR Qty: 30 1RF furosemide 20 mg Tablet 20 mg PO DAILY Qty: 30 0RF acetaminophen 325 mg Tablet 650 mg PO Q6HR Qty: 15 0RF hydrocodone-acetaminophen 5-325 mg Tablet 1 tablet PO Q4H PRN (Reason: Pain Rated 4-6) Qty: 20 0RF sennosides-docusate sodium [Senokot-S] 8.6-50 mg Tablet 2 tab PO BID Qty: 14 0RF Xarelto 10 mg Tablet 10 mg PO DAILY@1700 Qty: 30 0RF tramadol 50 mg Tablet 50 mg PO Q4H PRN (Reason: Pain Rated 1-3) Qty: 20 0RF glipizide 2.5 mg tablet extended release 24hr 2.5 mg PO DAILY omeprazole 40 mg capsule,delayed release(DR/EC) 40 mg PO DAILY Date of admission: 06/18/24 11:30 Primary Care Provider: ErynSonali Admitting Provider: Андрей Justice Attending physician on admission: Андрей Justice Condition: Stable This report may have been done utilizing a voice recognition system. Attempts have been made to correct errors. However, there may be uncorrected grammatical,spelling, and recognition errors present. Report Initialized date/time: Aggie Henderson MD 06/20/24 / 1013 Electronically signed by: Aggie Henderson MD 06/20/24 1022 History & Physical Note Author Althea [facility] Note Date/Time June 18, 2024 12:[address] [place] [address] [address] [place] [id number] History & Physical Report Signed Patient: Adalgisa Tirado MR#: [id number] : 1960 Acct:[id number] Age: 64 ADM Date: 06/17/24 Loc: [id number] 255-[address]: Андрей Justice M.D. cc: Андрей Justice MD; Fracisco Corrales MD; Desmond Melendrez MD~ H&P: HPI History of Present Illness Date/Time: 06/17/24 15:49 Chief Complaint: New stroke-like symptoms on right side Narrative: 64-year-old female with previous stroke with residual left-sided weakness only able to transfer to wheelchair now presents with right-sided flaccid.. Unknown if patient is compliant with Xarelto. HPI is limited due to patient having word-finding issues, getting frustrated. CT head shows new right parietal up septal infarct, old left frontal temporal and parietal lobe, left insula, left basal ganglia, left internal capsule, and left thalamus. Patient had ABG that showed hypoxia placed on 2 L nasal cannula and given 20 of IV Lasix. Patient is hyperglycemic started on insulin protocol. Chest x-ray shows possible pneumonia versus atelectasis. Review of Systems Review of Systems: 12 systems were reviewed and are negativ e except for as per HPI. FORMERLY [facility], [facility] Past Medical History Medical History (Updated 06/17/24 @ 19:44 by Althea Aparicio APRN) Breast cancer Cognitive impairment Chronic kidney disease Hypertension Cerebrovascular accident Residual right-sided weakness and expressive aphasia. Type 2 diabetes mellitus Kidney stone Surgical History Surgical History (Updated 04/19/24 @ 11:36 by Natty Aggarwal CMA) History of hip surgery No pertinent past surgical history Family History Family History (Updated 04/19/24 @ 11:37 by Natty Aggarwal CMA) Mother Pulmonary embolism Other Unknown family medical history Social History Social History Social History: Surrogate medical decision maker: Son Jeyson Ibanez who lives in [place]. She does not want her sister making decisions for her. Code status: Full code. Smoking packs per day: 1 Smoking cigarettes per day: 20.0 Years smoked: 40 Smoking pack-years: 40.00 Smoking status: Former smoker Tobacco type: cigarettes Alcohol intake: never Substance use: never Substance use type: does not use Do You Feel Safe in your Home?: Yes Lack of Transportation: No Lack of Food: Never True Current Housing: I Have Housing Concerned About Future Housing: No Difficulty Paying Gas/Electric Bills: No Difficulty Paying for Meds: No Currently Unemployed: No Education: High School Diploma/GED Difficulty w/ Childcare or Family Care: No Spiritual care concerns: No Meds Home Medications and Allergies Home Medications ???Medication ???Instructions ???Recorded ???Confirmed ???Type omeprazole 40 mg capsule,delayed 40 mg PO DAILY 11/15/21 06/17/24 History release empagliflozin 10 mg tablet 10 mg PO DAILY 02/24/24 06/17/24 History (Jardiance) sitagliptin phosphate 100 mg 100 mg PO DAILY 02/24/24 06/17/24 History tablet (Januvia) amlodipine 10 mg tablet 10 mg PO DAILY #30 tabs 03/03/24 06/17/24 Rx carvedilol 12.5 mg tablet (Coreg) 12.5 mg PO Q12HR #30 tabs 03/03/24 06/17/24 Rx clonidine HCl 0.2 mg tablet 0.2 mg PO Q12HR #30 tabs 03/03/24 06/17/24 Rx furosemide 20 mg tablet 20 mg PO DAILY #30 tabs 03/03/24 06/17/24 Rx acetaminophen 325 mg tablet 650 mg (2 x 325 mg) PO Q6HR #15 03/12/24 06/17/24 Rx tabs hydrocodone 5 mg-acetaminophen 325 1 tablet PO Q4H PRN Pain Rated 4-6 03/12/24 06/17/24 Rx mg tablet #20 tabs rivaroxaban 10 mg tablet (Xarelto) 10 mg PO DAILY@1700 #30 tabs 03/12/24 06/17/24 Rx sennosides 8.6 mg-docusate sodium 2 tab PO BID #14 tabs 03/12/24 06/17/24 Rx 50 mg tablet (Senokot-S) tramadol 50 mg tablet 50 mg PO Q4H PRN Pain Rated 1-3 03/12/24 06/17/24 Rx #20 tabs glipizide 2.5 mg tablet, extended 2.5 mg PO DAILY 06/17/24 06/17/24 History release 24 hr Allergies Allergy/AdvReac Type Severity Reaction Status Date / Time insulin glargine Allergy Severe Swelling Verified 04/19/24 11:14 amoxicillin Allergy Unknown Unknown Verified 04/19/24 11:14 cephalexin Allergy Unknown Unknown Verified 04/19/24 11:14 doxycycline Allergy Unknown Itching Verified 04/19/24 11:14 latex Allergy Unknown Unknown Verified 04/19/24 11:14 Penicillins Allergy Unknown Unknown Verified 04/19/24 11:14 sulfamethoxazole Allergy Unknown Swelling Verified 04/19/24 11:14 sumatriptan Allergy Unknown Unknown Verified 04/19/24 11:14 trazodone Allergy Unknown Swelling Verified 04/19/24 11:14 trimethoprim Allergy Unknown Swelling Verified 04/19/24 11:14 clindamycin Allergy Unknown Verified 04/19/24 11:14 Vital Signs Vital Signs - 24 hr 06/17/24 12:40 06/17/24 12:46 06/17/24 13:00 Temperature 97.6 F Pulse Rate 69 68 67 Respiratory Rate 16 16 19 Blood Pressure 92/64 L 92/64 L 139/69 Pulse Oximetry 100 98 100 Oxygen Delivery Room Air 06/17/24 14:00 06/17/24 15:00 Temperature Pulse Rate 67 64 Respiratory Rate 18 17 Blood Pressure 141/71 H 136/86 Pulse Oximetry 100 100 Oxygen Delivery Exam Narrative: General: well appearing, appears stated age. HEENT: normocephalic, atraumatic. Mucous membranes moist. EOMI, PERRLA, bilateral sclera anicteric, no conjunctival injection. Neck supple without JVD, lymphadenopathy, or bruit. Respiratory: clear to ascultation bilaterally. No rales/rhonic/wheezes. Cardiovascular: Regular rate and rhythm, normal S1-S2 upon ascultation. No murmurs, rubs, or clicks. PMI is nondisplaced, capillary refill less than 3 second. Abdomen: Soft, round, no pulsatile masses, nondistended and nontender. No rebound, no guarding. No CVA tenderness, no hepatosplenomegaly. Bowel sounds present to all four quadrants. No high pitch or tinkling sounds, resonant to percussion. Extremities: Week on bilateral left extremities, flaccid on right side Neuro: Alert and oriented word finding issues. PERRLA.. Skin: Warm, dry, and intact, without rash, erythema, or lesion. Psych: pleasant, cooperative, normal speech, normal affect, no hallucinations, no dysarthia H&P: Results Labs Labs: Short CBC 06/17/24 Range/Units 12:56 WBC 9.9 (4.5-10.0) K/mm3 Hgb 12.8 (12.0-15.0) g/dL Hct 41.9 (37.0-47.0) % Plt Count 385 H (150-375) k/mm3 BMP 06/17/24 12:56 Sodium 140 Potassium 4.3 Chloride 104 Carbon Dioxide 30 BUN 17 Creatinine 1.00 Glucose 223 H Calcium 9.4 Cardiac Enzymes 06/17/24 Range/Units 12:56 Troponin I 0.021 (0.000-0.034) ng/mL Liver Function 06/17/24 Range/Units 12:56 Total Bilirubin 0.6 (0.2-1.3) mg/dL AST 25 (14-36) U/L ALT 8 (6-35) U/L Alkaline Phosphatase 68 (38-126) U/L Albumin 3.9 (3.5-5.1) g/dL Assessment and Plan Assessment and plan (1) Acute cerebrovascular accident (CVA): Code(s): I63.9 - Cerebral infarction, unspecified Status: Acute Assessment and Plan: Neurology consulted CT shows new ischemic stroke Case was discussed with tertiary center by ED doctor and patient is outside of the window for TNK ok to keep patient here per Neurology Aspirin 324 x 1 Permissive hypertension PT and OT Noncompliance with Xarelto (2) Type 2 diabetes mellitus: Code(s): E11.9 - Type 2 diabetes mellitus without complications Status: Acute Assessment and Plan: 02/23/2024 hemoglobin A1c 7.3 Accu-Cheks AC and HS Diabetic diet SSI (3) Hypertension: Code(s): I10 - Essential (primary) hypertension Status: Acute Assessment and Plan: Permissive hypertension, hold antihypertensives (4) CHF (congestive heart failure): Code(s): I50.9 - Heart failure, unspecified Status: Acute Assessment and Plan: Hypoxia ABG 20 a IV Lasix Start home dose tomorrow (5) Hypoxia: Code(s): R09.02 - Hypoxemia Status: Acute Assessment and Plan: Hypoxia on ABG Repeat ABG Chest x-ray shows left lower lobe consistent with atelectasis versus pneumonia Patient's lung sounds are clear but diminished will hold off on IV antibiotics at this time she has no white count (6) History of CVA (cerebrovascular accident): Code(s): Z86.73 - Personal history of transient ischemic attack (TIA), and cerebral infarction without residual deficits Status: Acute Assessment and Plan: Wheelchair-bound Left-sided residual weakness Quality VTE Prophylaxis VTE prophylaxis: mechanical ordered Stroke Scale 1a Level of conciousness: alert-0 1b Level of consciousness: answers both correctly-0 1c Level of consciousness: obeys both correctly-0 2 Best gaze: normal-0 3 Visual: no visual loss-0 4 Facial palsy: minor paralysis-1 5a Motor: left arm: drift-1 5b Motor: right arm: no movement-4 6a Motor: left leg: drift-1 6b Motor: right leg: no movement-4 7 Limb ataxia: present in one limb-1 8 Sensory: pinprick less sharp-1 9 Best language: some loss of fluency-1 10 Dysarthria: slurs some words-1 11 Extinction and inattention: partial inattention-1 Level:: 16 Comment: Outside of window Pharmacological Therapy Was IV thrombolytic therapy given?: No Contraindications to IV thrombolytic therapy: medical contraindication Hospitalist MIPS Advance Care Plan I have confirmed that the patient's Advanced Care Plan is present, code status is documented, or surrogate decision maker is listed in patient medical record.:Yes Medication Reconciliation I have utilized all available resources to obtain, update and review the patients current medications (includes all prescriptions, OTC, herbals, cannabis, and nutritional supplements).: Yes This report may have been done utilizing a voice recognition system. Attempts have been made to correct errors. However, there may be uncorrected grammatical,spelling, and recognition errors present. Report Initialized date/time: Althea Aparicio APRN 06/17/24 / 1551 Electronically signed by: Althea Aparicio APRN 06/18/24 0033 Progress Note Author Fracisco Corrales [facility] Note Date/Time June 17, 2024 3:54pm [facility] [address] [place] [id number] Emergency Room Visit Note Signed Patient: Adalgisa Tirado MR#: [id number] : 1960 Acct:[id number] Age: 64 ADM Date: 06/17/24 Loc: ANHED Attending Dr: cc: Fracisco Corrales MD; Desmond Melendrez MD~ HPI - Neuro Symptoms/Deficit General Chief Complaint: Neuro Symptoms/Deficit Stated Complaint: STROKE LIKE S/S Time Seen by Provider: 06/17/24 12:59 History of Present Illness HPI Narrative: Patient is a 64-year-old female who presents ER with concerns for CVA. Patient has history of CVA in the past with large vessel occlusion of the left MCA. No in a soft low malacia. Has chronic weakness of the right side. Chart review shows patient can independently move that side. Patient is oriented to self and that she is at a hospital. She cannot provide any history other than saying she does not feel right. EMS with similar history. Unknown last known well. Patient responsive to verbal stimuli but has trouble following the commands. Difficult to know what is acute versus chronic. Will go for imaging. Related Data Home Medications ???Medication ???Instructions ???Recorded ???Confirmed ???Last Taken ???Type omeprazole 40 mg capsule,delayed 40 mg PO DAILY 11/15/21 04/19/24 Unknown History release aspirin 81 mg chewable tablet 81 mg PO DAILY 02/24/24 04/19/24 Unknown History empagliflozin 10 mg tablet 10 mg PO DAILY 02/24/24 04/19/24 Unknown History (Jardiance) sitagliptin phosphate 100 mg 100 mg PO DAILY 02/24/24 04/19/24 Unknown History tablet (Januvia) Allergies Allergy/AdvReac Type Severity Reaction Status Date / Time insulin glargine Allergy Severe Swelling Verified 04/19/24 11:14 amoxicillin Allergy Unknown Unknown Verified 04/19/24 11:14 cephalexin Allergy Unknown Unknown Verified 04/19/24 11:14 doxycycline Allergy Unknown Itching Verified 04/19/24 11:14 latex Allergy Unknown Unknown Verified 04/19/24 11:14 Penicillins Allergy Unknown Unknown Verified 04/19/24 11:14 sulfamethoxazole Allergy Unknown Swelling Verified 04/19/24 11:14 sumatriptan Allergy Unknown Unknown Verified 04/19/24 11:14 trazodone Allergy Unknown Swelling Verified 04/19/24 11:14 trimethoprim Allergy Unknown Swelling Verified 04/19/24 11:14 clindamycin Allergy Unknown Verified 04/19/24 11:14 Review of Systems 2 Review of Systems: ROS unobtainable: Yes unobtainable due to mental status PMFSH Past Medical History Medical History (Updated 06/17/24 @ 15:54 by Fracisco Corrales MD) Breast cancer Cognitive impairment Chronic kidney disease Hypertension Cerebrovascular accident Residual right-sided weakness and expressive aphasia. Type 2 diabetes mellitus Kidney stone Surgical History Surgical History (Updated 04/19/24 @ 11:36 by Natty Aggarwal CMA) History of hip surgery No pertinent past surgical history Family History Family History (Updated 04/19/24 @ 11:37 by Natty Aggarwal CMA) Mother Pulmonary embolism Other Unknown family medical history Social History Social History Social History: Surrogate medical decision maker: Son Jeyson Ibanez who lives in [place]. She does not want her sister making decisions for her. Code status: Full code. Smoking packs per day: 1 Smoking cigarettes per day: 20.0 Years smoked: 36 Smoking pack-years: 36.00 Smoking status: Current every day smoker Tobacco type: cigarettes Alcohol intake: never Substance use: never Substance use type: does not use Current Housing: Decline to Answer Concerned About Future Housing: Decline to Answer Difficulty Paying Gas/Electric Bills: Decline to Answer Difficulty Paying for Meds: Decline to Answer Currently Unemployed: Decline to Answer Education: Decline to Answer Difficulty w/ Childcare or Family Care: Decline to Answer Spiritual care concerns: No Exam 2 Narrative: GENERAL: Chronically ill-appearing, well-nourished, and in no acute distress. HEAD: Normocephalic, atraumatic. EYES: PERRL and EOMI. ENT: Mucous membranes moist. CHEST: Clear to auscultation. No respiratory distress. HEART: Regular rate and rhythm. Normal peripheral pulses. ABDOMEN: Soft, nontender, nondistended. EXTREMITIES: no deformity of the upper lower extremities. flaccid paralysis right upper extremity, will move the toes of the right foot but will not independently move the knee are hip on my exam. She has however tucked her right foot behind her left knee and it is unsure if that was positioning by nursing staff or patient did it on her own. Patient will move the toes of left foot. She is able to lift her left arm with normal strength. SKIN: Warm, dry, no rash. NEURO: See NIH stroke scale. Significant weakness on the right side that seems worse than previously documented normal but she will not move the right arm and only moves the right toes. She does not respond to pain on the right side. She has left upper extremity drift. The left lower extremity she moves the foot as well but will not lift the leg off the bed. Unable to preform heel to light testing. Mild right facial weakness. Patient with mild expressive aphasia and mildly slurred speech which may be chronic from previous chart review. Alert and oriented x2. Course Course Emergency Course: 1435: I have had multiple conversations with the patient's GISEL Zhao who is her sister. I have also discussed the case with [facility] stroke team Dr. Jeter. the stroke team feels with the evidence of the infarct and the chronic occlusions patient would not be offered TNK. I do agree with this and I have concerns that patient's stroke may be older than the initial time frame that we know about given its appearance on the CT. Chart review showed prescription for Xarelto but after speaking with patient's sister it sounds likeshe is not taking that and it is unknown why she was on the medication. I have consulted Neurology here at [facility] and patient may be admitted evaluated further. At baseline patient can sometimes pull herself up to standing position for transfer but does not walk and uses a wheelchair. Patient has beenmade aware of the seriousness of her condition as well. Accepted by hospitalist service. Vital Signs Vital signs: Vital Signs Temperature 97.6 F 06/17/24 12:40 Pulse Rate 69 06/17/24 12:40 Respiratory Rate 16 06/17/24 12:40 Blood Pressure 92/64 L 06/17/24 12:40 Pulse Oximetry 100 06/17/24 12:40 Oxygen Delivery Room Air 06/17/24 12:40 Temperature 97.6 F 06/17/24 12:40 Pulse Rate 64 06/17/24 15:00 Respiratory Rate 17 06/17/24 15:00 Blood Pressure 136/86 06/17/24 15:00 Pulse Oximetry 100 06/17/24 15:00 Oxygen Delivery Room Air 06/17/24 12:40 MDM - Neuro Symptoms/Deficit Lab Data 06/17/24 12:56 06/17/24 12:56 Labs: Lab Results 06/17/24 06/17/24 06/17/24 Range/Units 12:46 12:56 13:25 WBC 9.9 (4.5-10.0) K/mm3 RBC 4.99 (4.2-5.4) M/mm3 Hgb 12.8 (12.0-15.0) g/dL Hct 41.9 (37.0-47.0) % MCV 84.0 (80-100) fl MCH 25.7 L (26-34) pg MCHC 30.5 L (32-36) g/dl RDW 14.6 H (11.5-14.5) % Plt Count 385 H (150-375) k/mm3 MPV 10.3 (7.4-10.4) fl Immature Gran % (Auto) 0.3 (0-0.5) % Neut % (Auto) 65.3 (45.5-73.1) % Lymph % (Auto) 28.7 (18.3-44.2) % Lea % (Auto) 4.8 (2.6-8.5) % Eos % (Auto) 0.3 (0-4.4) % Baso % (Auto) 0.6 (0.2-1.2) % Lymph # (Auto) 2.83 (0.9-3.2) K/mm3 Lea # (Auto) 0.5 (0.1-0.6) K/mm3 Eos # (Auto) 0.0 (0-0.3) K/mm3 Baso # (Auto) 0.1 (0.0-0.1) K/mm3 Abs Immat Gran (auto) 0.03 (0.00-0.031) K/mm3 Absolute Neuts (auto) 6.5 (1.3-6.7) K/mm3 Absolute Nucleated RBC 0.000 (0.0-0.012) K/mm3 Nucleated RBC % 0.0 (0.0-0.2) % PT 13.9 (11.1-14.7) Seconds INR 1.0 APTT 23.6 (22.3-36.8) Seconds Methemoglobin 0.0 (0-1.5) %THb Sodium 140 (137-145) mmol/L Potassium 4.3 (3.4-5.0) mmol/L Chloride 104 (98-107) mmol/L Carbon Dioxide 30 (22-30) mmol/L Anion Gap 6 (4-12) mmol/L BUN 17 (7-17) mg/dL Creatinine 1.00 (0.7-1.0) mg/dL Estim Creat Clear Calc Not Reportable Estimated GFR 56 L (59 - ) Glucose 223 H (65-110) mg/dL POC Capillary Glucose 209 H (65-105) mg/dl Calcium 9.4 (8.4-10.2) mg/dL Total Bilirubin 0.6 (0.2-1.3) mg/dL AST 25 (14-36) U/L ALT 8 (6-35) U/L Alkaline Phosphatase 68 (38-126) U/L Troponin I 0.021 (0.000-0.034) ng/mL Total Protein 8.0 (6.3-8.2) g/dL Albumin 3.9 (3.5-5.1) g/dL ABG Data ABG results: 06/17/24 13:25 Puncture Site Right brachial ABG pH 7.434 ABG pCO2 35.6 ABG pO2 68.6 L ABG PO2/FiO2 Ratio 3.27 ABG HCO3 23.3 ABG O2 Saturation 94.4 L ABG O2 Content 14.7 L ABG Base Excess -0.5 A-a Gradient 38.5 Oxyhemoglobin 89.1 L Carboxyhemoglobin 5.1 H Reduced Hemoglobin 5.8 H Total Hemoglobin 11.7 L O2 Delivery Device Not Reportable O2 Liters/Min Not Reportable FiO2 21 Imaging Data Radiologist's impression: ITS Impressions Head CT 06/17/24 13:21 IMPRESSION: 1. Infarct involving the right parietal occipital region, likely acute. 2. 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 3. Extensive nonspecific cerebral white matter disease, which likely represents chronic small vessel ischemic disease. Head/Neck CTA 06/17/24 13:26 IMPRESSION: 1. Infarct involving the right parietal occipital region, likely acute. 2. 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 3. Extensive nonspecific cerebral white matter disease, which likely represents chronic small vessel ischemic disease. 4. 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 5. Small left A1 anterior cerebral artery segment with collaterals. Total occlusion of left A2 anterior cerebral artery with reconstitution. 6. 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 7. 22% stenosis of the proximal right internal carotid artery relative to normaldistal artery lumen diameter (NASCET criteria). Chest X-Ray 06/17/24 13:36 IMPRESSION: 1. Mild airspace opacities in left lower lung zone, consistent with atelectasis versus pneumonia. ECG Data EKG #1: ECG completion date: 06/17/24 ECG completion time: 15:49 EKG Interpretation: normal rate (70), sinus rhythm, non-specific ST changes (anterolateral t-wave inversions and depression), normal QRS and left axis Discharge Plan Discharge Clinical Impression: Acute cerebrovascular accident (CVA) Patient Disposition: Still a Patient Condition: Stable Patient Language: Cameroonian Prescriptions: No Action aspirin 81 mg tablet,chewable 81 mg PO DAILY Januvia 100 mg tablet 100 mg PO DAILY Jardiance 10 mg tablet 10 mg PO DAILY amlodipine 10 mg Tablet 10 mg PO DAILY Qty: 30 1RF carvedilol [Coreg] 12.5 mg Tablet 12.5 mg PO Q12HR Qty: 30 1RF hydralazine 25 mg Tablet 25 mg PO TID Qty: 30 1RF clonidine HCl 0.2 mg Tablet 0.2 mg PO Q12HR Qty: 30 1RF furosemide 20 mg Tablet 20 mg PO DAILY Qty: 30 0RF fluconazole [Diflucan] 100 mg Tablet 100 mg PO QAM Qty: 11 0RF acetaminophen 325 mg Tablet 650 mg PO Q6HR Qty: 15 0RF hydrocodone-acetaminophen 5-325 mg Tablet 1 tablet PO Q4H PRN (Reason: Pain Rated 4-6) Qty: 20 0RF sennosides-docusate sodium [Senokot-S] 8.6-50 mg Tablet 2 tab PO BID Qty: 14 0RF Xarelto 10 mg Tablet 10 mg PO DAILY@1700 Qty: 30 0RF tramadol 50 mg Tablet 50 mg PO Q4H PRN (Reason: Pain Rated 1-3) Qty: 20 0RF omeprazole 40 mg capsule,delayed release(DR/EC) 40 mg PO DAILY Follow-up/Referrals: Desmond Melendrez MD [Primary Care Provider] - Quality Stroke Scale Stroke Scale 1: Stroke scale date:: 06/17/24 1a Level of consciousness: alert-0 1b Level of consciousness questions: answers none correctly-2 1c Level of consciousness commands: obeys both correctly-0 2 Best gaze: normal-0 3 Visual: no visual loss-0 4 Facial palsy: minor paralysis-1 5a Motor: left arm: drift-1 5b Motor: right arm: no movement-4 6a Motor: left leg: no effort/gravity-3 6b Motor: right leg: no effort/gravity-3 7 Limb ataxia: present in two limbs-2 8 Sensory: sev total sensory loss-2 9 Best language: some loss of fluency-1 10 Dysarthria: slurs some words-1 11 Extinction and inattention: no abnormality-0 Level:: 20 This report may have been done utilizing a voice recognition system. Attempts have been made to correct errors. However, there may be uncorrected grammatical,spelling, and recognition errors present. Report Initialized date/time: Fracisco Corrales MD 06/17/24 / 1354 Electronically signed by: Fracisco Corrales MD 06/17/24 0364 Progress Note Author [facility] Note Date/Time June 18, 2024 2:45pm [facility] [address] [place] [address] Hospitalist Progress Note Signed Patient: Adalgisa Tirado MR#: [id number] : 1960 Acct:[id number] Age: 64 ADM Date: 06/18/24 Loc: [id number] 255-[address]: Андрей Justice M.D. cc: ~ Progress Note: A&P Assessment and Plan (1) Hypoxia: Code(s): R09.02 - Hypoxemia Status: Acute Assessment and Plan: Pt is on oxygen Chest x-ray shows left lower lobe consistent with atelectasis versus pneumonia ? aspiration pneumonia ST ordered to evaluate pt cover with iv rocephin and flagyl for now (2) CHF (congestive heart failure): Code(s): I50.9 - Heart failure, unspecified Status: Acute Assessment and Plan: Continue pts home dose of oral lasix Pt has history of CHF Order ECHO (3) Acute cerebrovascular accident (CVA): Code(s): I63.9 - Cerebral infarction, unspecified Status: Acute Assessment and Plan: Neurology consulted CT shows new ischemic stroke Case was discussed with tertiary center by ED doctor and patient is outside of the window for GABRIELAK ok to keep patient here per Neurology continue asa xarelto and statin as per neurology md - Bihemispheric stroke with old left hemisphere involvementand super imposed right hemispheric stroke as well. 2. 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 And 22% stenosis proximal right internal carotid artery but the CT scan documents infarct involving the right parietal occipital region as an acute problem. (4) Urinary retention: Code(s): R33.9 - Retention of urine, unspecified Status: Acute Assessment and Plan: pass catheter if necessary (5) Type 2 diabetes mellitus: Code(s): E11.9 - Type 2 diabetes mellitus without complications Status: Acute Assessment and Plan: 02/23/2024 hemoglobin A1c 7.3 Accu-Cheks AC and HS Diabetic diet SSI (6) Hypertension: Code(s): I10 - Essential (primary) hypertension Status: Acute Assessment and Plan: Permissive hypertension, hold antihypertensives (7) History of CVA (cerebrovascular accident): Code(s): Z86.73 - Personal history of transient ischemic attack (TIA), and cerebral infarction without residual deficits Status: Acute Assessment and Plan: Wheelchair-bound Left-sided residual weakness from previous tia continue PT/ OT/ ST await AR bed Subjective Date/time seen: 06/18/24 14:32 Interval history: Pt admitted with acute new CVA pt having severe R sided weakness arm and leg able to speak and swallow seen by neurology ok to continue PT/ OT/ ST await AR placement bp on higher side of nl continue to watch in hospital pt is a smoker and has not been taking her medications correctly pmh of tia, htn and dm Review of Systems Review of Systems: mainly right sided weakness Exam Narrative: General: well appearing, appears stated age. HEENT: normocephalic, atraumatic. Mucous membranes moist. EOMI, PERRLA, bilateral sclera anicteric, no conjunctival injection. Neck supple without JVD, lymphadenopathy, or bruit. Respiratory: clear to ascultation bilaterally. No rales/rhonic/wheezes. Cardiovascular: Regular rate and rhythm, normal S1-S2 upon ascultation. No murmurs, rubs, or clicks. PMI is nondisplaced, capillary refill less than 3 second. Abdomen: Soft, round, no pulsatile masses, nondistended and nontender. No rebound, no guarding. No CVA tenderness, no hepatosplenomegaly. Bowel sounds present to all four quadrants. No high pitch or tinkling sounds, resonant to percussion. Extremities: severe R sided weakness Neuro: Alert and oriented word finding issues. PERRLA.. Skin: Warm, dry, and intact, without rash, erythema, or lesion. Psych: pleasant, cooperative, normal speech, normal affect, no hallucinations, no dysarthia Objective Data Vital Signs Vital Signs: Vital Signs - 24 hr 06/17/24 15:00 06/17/24 17:12 06/17/24 17:40 Temperature 36.1 C L Pulse Rate 64 57 L 57 L Respiratory Rate 17 18 18 Blood Pressure 136/86 149/72 H Pulse Oximetry 100 97 97 Oxygen Delivery Room Air Oxygen Flow Rate 06/17/24 19:34 06/17/24 20:00 06/17/24 20:00 Temperature 37.0 C Pulse Rate 58 L 58 L 59 L Respiratory Rate 18 18 Blood Pressure 120/61 Pulse Oximetry 98 98 Oxygen Delivery Room Air Oxygen Flow Rate 06/18/24 00:00 06/18/24 01:51 06/18/24 04:00 Temperature Pulse Rate 63 58 L 76 Respiratory Rate 18 Blood Pressure Pulse Oximetry 98 Oxygen Delivery Nasal Cannula Oxygen Flow Rate 2 06/18/24 05:41 06/18/24 06:00 06/18/24 07:00 Temperature 37.3 C 37.3 C 37.1 C Pulse Rate 75 Respiratory Rate 17 Blood Pressure 160/82 H Pulse Oximetry 100 Oxygen Delivery Oxygen Flow Rate 06/18/24 09:18 06/18/24 09:22 Temperature 36.9 C Pulse Rate 67 67 Respiratory Rate 16 Blood Pressure 167/88 H Pulse Oximetry 92 Oxygen Delivery Oxygen Flow Rate Intake/Output Intake/Output: Intake & Output 06/15/24 06/16/24 06/17/24 06/18/24 23:59 23:59 23:59 23:59 Intake Total 390 1080 Output Total 1550 Balance 390 -470 Meds/Results Medications: Active Medications Generic Name Dose Route Start Last Admin Trade Name Freq PRN Reason Stop Dose Admin Acetaminophen 650 mg 06/17/24 15:14 06/18/24 06:00 Acetaminophen 325 Mg Tablet PO 650 mg Q4H PRN Administration Mild Pain (1-3) or Fever Hydrocodone Bitart/Acetaminophen 1 tab 06/17/24 15:14 06/17/24 20:33 Hydrocodone/Acetaminophen (*Crx) 5-325 Mg Tablet PO 1 tab Q4H PRN Administration Pain Rated 4-6 Carvedilol 12.5 mg 06/18/24 09:00 06/18/24 09:22 Carvedilol 12.5 Mg Tablet PO 12.5 mg Q12HR JAQUI Administration Dextrose 12.5 gm 06/17/24 19:32 Dextrose 50% 25 Gm/50 Ml Syringe IV PUSH PRN PRN Hypoglycemia Protocol Furosemide 20 mg 06/18/24 09:00 06/18/24 09:21 Furosemide 20 Mg Tablet PO 20 mg DAILY JAQUI Administration Glucagon 1 mg 06/17/24 19:32 Glucagon For Inj 1 Mg Vial IM PRN PRN Hypoglycemia Protocol Glucose 15 gm 06/17/24 19:32 Glucose Oral Gel 15 Gm Of Glucse In 37.5 Gm Tube PO PRN PRN Hypoglycemia Protocol Dextrose 1,000 mls @ 100 mls/hr 06/17/24 19:32 Dextrose 5% 1,000 Ml IVPB PRN PRN Hypoglycemia Protocol Insulin Aspart 2 - 5 units 06/18/24 08:00 06/18/24 13:16 Insulin Aspart (*Bkc) 100 Units/Ml SUB-Q Not Given TIDWM JAQUI Protocol Insulin Aspart 1 - 2 units 06/17/24 21:00 06/17/24 20:34 Insulin Aspart (*Bkc) 100 Units/Ml SUB-Q Not Given HS [facility] Protocol Nicotine 1 patch 06/18/24 09:00 06/18/24 13:35 Nicotine (*Pbkc) 14 Mg Patch TRANSDERM 1 patch DAILY JAQUI Administration Ondansetron HCl 4 mg 06/17/24 15:14 Ondansetron Inj 4 Mg/2 Ml Vial IV PUSH Q4H PRN Nausea Pantoprazole Sodium 40 mg 06/18/24 09:00 06/18/24 09:20 Pantoprazole 40 Mg Tablet PO 40 mg Q12HR JAQUI Administration Senna/Docusate Sodium 2 tab 06/18/24 09:00 06/18/24 09:21 Senna/Docusate Sodium Tablet PO 2 tab BID JAQUI Administration Radiology Results: ITS Impressions Head CT 06/17/24 13:21 IMPRESSION: 1. Infarct involving the right parietal occipital region, likely acute. 2. 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 3. Extensive nonspecific cerebral white matter disease, which likely represents chronic small vessel ischemic disease. Head/Neck CTA 06/17/24 13:26 IMPRESSION: 1. Infarct involving the right parietal occipital region, likely acute. 2. 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 3. Extensive nonspecific cerebral white matter disease, which likely represents chronic small vessel ischemic disease. 4. 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 5. Small left A1 anterior cerebral artery segment with collaterals. Total occlusion of left A2 anterior cerebral artery with reconstitution. 6. 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 7. 22% stenosis of the proximal right internal carotid artery relative to normaldistal artery lumen diameter (NASCET criteria). Chest X-Ray 06/17/24 13:36 IMPRESSION: 1. Mild airspace opacities in left lower lung zone, consistent with atelectasis versus pneumonia. Labs Labs: Laboratory Results - last 24 hr 06/17/24 06/17/24 06/18/24 19:49 19:56 08:14 Puncture Site Left radial ABG pH 7.433 ABG pCO2 42.8 ABG pO2 74.3 L ABG PO2/FiO2 Ratio 3.54 ABG HCO3 28.0 H ABG O2 Saturation 95.3 ABG O2 Content 17.1 ABG Base Excess 3.3 A-a Gradient 24.2 Oxyhemoglobin 92.5 Total Hemoglobin 13.1 O2 Delivery Device Not Reportable O2 Liters/Min Not Reportable FiO2 21 POC Capillary Glucose 101 130 H 06/18/24 11:44 Puncture Site ABG pH ABG pCO2 ABG pO2 ABG PO2/FiO2 Ratio ABG HCO3 ABG O2 Saturation ABG O2 Content ABG Base Excess A-a Gradient Oxyhemoglobin Total Hemoglobin O2 Delivery Device O2 Liters/Min FiO2 POC Capillary Glucose 182 H This report may have been done utilizing a voice recognition system. Attempts have been made to correct errors. However, there may be uncorrected grammatical,spelling, and recognition errors present. Report Initialized date/time: Jolie Wall MD 06/18/241441 Electronically signed by: Jolie Wall MD 06/18/241444 Progress Note Author [facility] Note Date/Time June 19, 2024 11:[address] [place] [address] [address] [place], [place] [id number] Hospitalist Progress Note Signed Patient: Adalgisa Tirado MR#: [id number] : 1960 Acct:[id number] Age: 64 ADM Date: 06/18/24 Loc: [id number]: Андрей Justice M.D. cc: ~ Progress Note: A&P Assessment and Plan (1) Hypoxia: Code(s): R09.02 - Hypoxemia Status: Acute Assessment and Plan: Pt is on oxygen Chest x-ray shows left lower lobe consistent with atelectasis versus pneumonia ? aspiration pneumonia ST ordered to evaluate pt cover with iv rocephin and flagyl for now (2) CHF (congestive heart failure): Code(s): I50.9 - Heart failure, unspecified Status: Acute Assessment and Plan: Continue pts home dose of oral lasix Pt has history of CHF ECHO EF 60-65% and grade I diastolic dysfunction (3) Acute cerebrovascular accident (CVA): Code(s): I63.9 - Cerebral infarction, unspecified Status: Acute Assessment and Plan: Neurology consulted CT shows new ischemic stroke Case was discussed with tertiary center by ED doctor and patient is outside of the window for TNK, ok to keep patient here per Neurology continue asa xarelto and statin as per neurology md - Bihemispheric stroke with old left hemisphere involvementand super imposed right hemispheric stroke as well. 2. 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 And 22% stenosis proximal right internal carotid artery but the CT scan documents infarct involving the right parietal occipital region as an acute problem. (4) Urinary retention: Code(s): R33.9 - Retention of urine, unspecified Status: Acute Assessment and Plan: pass catheter if necessary (5) Type 2 diabetes mellitus: Code(s): E11.9 - Type 2 diabetes mellitus without complications Status: Acute Assessment and Plan: 02/23/2024 hemoglobin A1c 7.3 Accu-Cheks AC and HS Diabetic diet SSI (6) Hypertension: Code(s): I10 - Essential (primary) hypertension Status: Acute Assessment and Plan: Permissive hypertension, hold antihypertensives (7) History of CVA (cerebrovascular accident): Code(s): Z86.73 - Personal history of transient ischemic attack (TIA), and cerebral infarction without residual deficits Status: Acute Assessment and Plan: Wheelchair-bound Left-sided residual weakness from previous tia continue PT/ OT/ ST await AR bed Subjective Date/time seen: 06/19/24 11:14 Interval history: Patient comfortable at bedside awaiting placement Review of Systems Review of Systems: mainly right sided weakness Exam Narrative: General: well appearing, appears stated age. HEENT: normocephalic, atraumatic. Mucous membranes moist. EOMI, PERRLA, bilateral sclera anicteric, no conjunctival injection. Neck supple without JVD, lymphadenopathy, or bruit. Respiratory: clear to ascultation bilaterally. No rales/rhonic/wheezes. Cardiovascular: Regular rate and rhythm, normal S1-S2 upon ascultation. No murmurs, rubs, or clicks. PMI is nondisplaced, capillary refill less than 3 second. Abdomen: Soft, round, no pulsatile masses, nondistended and nontender. No rebound, no guarding. No CVA tenderness, no hepatosplenomegaly. Bowel sounds present to all four quadrants. No high pitch or tinkling sounds, resonant to percussion. Extremities: severe R sided weakness Neuro: Alert and oriented word finding issues. PERRLA.. Skin: Warm, dry, and intact, without rash, erythema, or lesion. Psych: pleasant, cooperative, normal speech, normal affect, no hallucinations, no dysarthia Objective Data Vital Signs Vital Signs: Vital Signs - 24 hr 06/18/24 12:00 06/18/24 14:00 06/18/24 16:14 Temperature 99.5 F Pulse Rate 76 75 Respiratory Rate 12 Blood Pressure 187/74 H Pulse Oximetry 100 Oxygen Delivery Room Air 06/18/24 20:00 06/18/24 20:00 06/18/24 20:56 Temperature 99.4 F Pulse Rate 88 86 86 Respiratory Rate 18 18 Blood Pressure 163/86 H Pulse Oximetry 100 100 Oxygen Delivery Room Air 06/19/24 00:00 06/19/24 04:00 06/19/24 05:57 Temperature 99.1 F Pulse Rate 79 80 85 Respiratory Rate 20 Blood Pressure 165/78 H Pulse Oximetry 100 Oxygen Delivery 06/19/24 08:03 06/19/24 08:05 06/19/24 08:07 Temperature 97.7 F Pulse Rate 798 H 80 Respiratory Rate 16 Blood Pressure 133/75 Pulse Oximetry 95 95 Oxygen Delivery Room Air 06/19/24 08:07 Temperature Pulse Rate 83 Respiratory Rate Blood Pressure Pulse Oximetry Oxygen Delivery Intake/Output Intake/Output: Intake & Output 06/16/24 06/17/24 06/18/24 06/19/24 23:59 23:59 23:59 23:59 Intake Total 390 3220 340 Output Total 3250 600 Balance 390 -30 -260 Meds/Results Medications: Active Medications Generic Name Dose Route Start Last Admin Trade Name Freq PRN Reason Stop Dose Admin Acetaminophen 650 mg 06/17/24 15:14 06/18/24 06:00 Acetaminophen 325 Mg Tablet PO 650 mg Q4H PRN Administration Mild Pain (1-3) or Fever Hydrocodone Bitart/Acetaminophen 1 tab 06/17/24 15:14 06/19/24 05:38 Hydrocodone/Acetaminophen (*Crx) 5-325 Mg Tablet PO 1 tab Q4H PRN Administration Pain Rated 4-6 Amlodipine Besylate 10 mg 06/19/24 09:00 06/19/24 08:09 Amlodipine Besylate 10 Mg Tablet PO 10 mg DAILY JAQUI Administration Aspirin 81 mg 06/19/24 09:00 06/19/24 08:05 Aspirin 81 Mg Enteric Tablet PO 81 mg QAM JAQUI Administration Atorvastatin Calcium 40 mg 06/19/24 09:00 06/19/24 08:06 Atorvastatin 40 Mg Tablet PO 40 mg DAILY JAQIU Administration Carvedilol 12.5 mg 06/18/24 09:00 06/19/24 08:05 Carvedilol 12.5 Mg Tablet PO 12.5 mg Q12HR JAQUI Administration Dextrose 12.5 gm 06/17/24 19:32 Dextrose 50% 25 Gm/50 Ml Syringe IV PUSH PRN PRN Hypoglycemia Protocol Furosemide 20 mg 06/18/24 09:00 06/19/24 08:06 Furosemide 20 Mg Tablet PO 20 mg DAILY JAQUI Administration Glucagon 1 mg 06/17/24 19:32 Glucagon For Inj 1 Mg Vial IM PRN PRN Hypoglycemia Protocol Glucose 15 gm 06/17/24 19:32 Glucose Oral Gel 15 Gm Of Glucse In 37.5 Gm Tube PO PRN PRN Hypoglycemia Protocol Dextrose 1,000 mls @ 100 mls/hr 06/17/24 19:32 Dextrose 5% 1,000 Ml IVPB PRN PRN Hypoglycemia Protocol Insulin Aspart 2 - 5 units 06/18/24 08:00 06/19/24 08:07 Insulin Aspart (*Bkc) 100 Units/Ml SUB-Q 2 units TIDWM JAQUI Administration Protocol Insulin Aspart 1 - 2 units 06/17/24 21:00 06/18/24 19:59 Insulin Aspart (*Bkc) 100 Units/Ml SUB-Q 1 units HS JAQUI Administration Protocol Metronidazole 500 mg 06/18/24 16:00 06/19/24 05:37 Metronidazole 500 Mg Tablet PO 500 mg Q8HR JAQUI Administration Nicotine 1 patch 06/18/24 09:00 06/19/24 08:08 Nicotine (*Pbkc) 14 Mg Patch TRANSDERM 1 patch DAILY JAQUI Administration Ondansetron HCl 4 mg 06/17/24 15:14 Ondansetron Inj 4 Mg/2 Ml Vial IV PUSH Q4H PRN Nausea Pantoprazole Sodium 40 mg 06/18/24 09:00 06/19/24 08:06 Pantoprazole 40 Mg Tablet PO 40 mg Q12HR JAQUI Administration Rivaroxaban 10 mg 06/18/24 17:00 06/18/24 16:53 Rivaroxaban 10 Mg Tablet PO 10 mg DAILY@1700 JAQUI Administration Senna/Docusate Sodium 2 tab 06/18/24 09:00 06/19/24 08:05 Senna/Docusate Sodium Tablet PO 2 tab BID JAQUI Administration Radiology Results: ITS Impressions Head CT 06/17/24 13:21 IMPRESSION: 1. Infarct involving the right parietal occipital region, likely acute. 2. 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 3. Extensive nonspecific cerebral white matter disease, which likely represents chronic small vessel ischemic disease. Head/Neck CTA 06/17/24 13:26 IMPRESSION: 1. Infarct involving the right parietal occipital region, likely acute. 2. 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 3. Extensive nonspecific cerebral white matter disease, which likely represents chronic small vessel ischemic disease. 4. 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 5. Small left A1 anterior cerebral artery segment with collaterals. Total occlusion of left A2 anterior cerebral artery with reconstitution. 6. 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 7. 22% stenosis of the proximal right internal carotid artery relative to normaldistal artery lumen diameter (NASCET criteria). Chest X-Ray 06/17/24 13:36 IMPRESSION: 1. Mild airspace opacities in left lower lung zone, consistent with atelectasis versus pneumonia. Modified Barium Swallow 06/19/24 09:30 IMPRESSION: 1. Trace flash laryngeal penetration. No aspiration. 2. Please refer to the speech therapy report for recommendations. Labs Labs: Laboratory Results - last 24 hr 06/18/24 06/18/24 06/18/24 11:44 16:27 19:53 WBC RBC Hgb Hct MCV MCH MCHC RDW Plt Count MPV Immature Gran % (Auto) Neut % (Auto) Lymph % (Auto) Lea % (Auto) Eos % (Auto) Baso % (Auto) Lymph # (Auto) Lea # (Auto) Eos # (Auto) Baso # (Auto) Abs Immat Gran (auto) Absolute Neuts (auto) Absolute Nucleated RBC Nucleated RBC % Sodium Potassium Chloride Carbon Dioxide Anion Gap BUN Creatinine Estim Creat Clear Calc Estimated GFR Glucose POC Capillary Glucose 182 H 104 201 H Calcium Total Bilirubin AST ALT Alkaline Phosphatase Total Protein Albumin 06/19/24 06/19/24 05:15 07:43 WBC 15.1 H RBC 5.02 Hgb 12.8 Hct 41.2 MCV 82.1 MCH 25.5 L MCHC 31.1 L RDW 14.2 Plt Count 370 MPV 10.2 Immature Gran % (Auto) 0.4 Neut % (Auto) 60.1 Lymph % (Auto) 31.6 Lea % (Auto) 6.6 Eos % (Auto) 0.6 Baso % (Auto) 0.7 Lymph # (Auto) 4.77 H Lea # (Auto) 1.0 H Eos # (Auto) 0.1 Baso # (Auto) 0.1 Abs Immat Gran (auto) 0.06 H Absolute Neuts (auto) 9.1 H Absolute Nucleated RBC 0.000 Nucleated RBC % 0.0 Sodium 135 L Potassium 3.7 Chloride 103 Carbon Dioxide 28 Anion Gap 4 BUN 24 H Creatinine 1.00 Estim Creat Clear Calc 45 Estimated GFR 56 L Glucose 148 H POC Capillary Glucose 220 H Calcium 9.4 Total Bilirubin 0.6 AST 31 ALT 10 Alkaline Phosphatase 73 Total Protein 8.0 Albumin 3.8 Quality VTE Prophylaxis VTE prophylaxis: mechanical ordered This report may have been done utilizing a voice recognition system. Attempts have been made to correct errors. However, there may be uncorrected grammatical,spelling, and recognition errors present. Report Initialized date/time: Aggie Henderson MD 06/19/24 / 1117 Electronically signed by: Aggie Henderson MD 06/19/24 [id number]
== END 2024-07-07 12:15 ==
LOC: ANHED 15:58 → ANH3MEDSUR 20:10
PROVIDERS: Nurse Practitioner Family; Admitting Provider Internal Medicine; Emergency Provider Student in an Organized Health Care Education/Training Program; PCP Physician Assistant; Visit Provider Internal Medicine
DX: B37.49 Other urogenital candidiasis (principal); L89.154 Pressure ulcer of sacral region, stage 4; E11.65 Type 2 diabetes mellitus with hyperglycemia; I69.351 Hemiplegia and hemiparesis following cerebral infarction affecting right dominant side; I69.320 Aphasia following cerebral infarction; M62.81 Muscle weakness (generalized); E11.22 Type 2 diabetes mellitus with diabetic chronic kidney disease; I12.9 Hypertensive chronic kidney disease with stage 1 through stage 4 chronic kidney disease, or unspecified chronic kidney disease; N18.9 Chronic kidney disease, unspecified; Z99.3 Dependence on wheelchair; Z79.01 Long term (current) use of anticoagulants; Z79.84 Long term (current) use of oral hypoglycemic drugs; Z85.3 Personal history of malignant neoplasm of breast; Z87.442 Personal history of urinary calculi
CPT/HCPCS: 36415; 70450; 71045; 80053; 81001; 82948; 83735; 85025; 87086; 93005; 96365; 96367; 96376; 97161; 97165; 99212; 99285; A9270; G0378; G0463; J0696; J0744; J1815